=== PATIENT | male | born 1950 | race Caucasian/White ===

== ENCOUNTER 2017-02-10 17:10 | Inpatient (IN) | payer MEDICARE, OTHER ==
[~2017-02-10] VITALS: Ht 167.6 cm; Wt 98.0 kg
[2017-02-10] VITALS (13 sets, daily range): BP systolic 109–171; BP diastolic 56–85; PULSE 75–95; RESP 14–19; O2SAT 94–100
[~2017-02-10 17:10] MED LIST: ACIDCAP17 PO; ATOR40TA PO; BUME1TAB PO; CARV3.125 PO; D32000TA PO; FERR324T4 PO; LANTUS2P SQ; LEVO150T7 PO; LISI2.5T55 PO; MELA3TAB PO; METO2.5 PO; OXYC15TA55 PO; PRED1%O RIGHT EYE; PRIL20CA PO; RIVA20 PO; SERO25TA PO
[2017-02-10] MEDS ORDERED: PROPOFOL 1000 MG/100 ML INJ 100 ML ONE (17:40)
[2017-02-10] MEDS ORDERED: PROPOFOL 1000 MG/100 ML INJ 100 ML IV PRN (17:48)
[2017-02-10] MEDS ORDERED: ETOMIDATE 20 MG/10 ML VIAL IV PUSH ONE (18:00)
[2017-02-10] MEDS ORDERED: SODIUM CHLORIDE 0.9% FLUSH 10 ML FLUSH IVF PRN (18:00)
[2017-02-10] MEDS ORDERED: SUCCINYLCHOLINE CHLORIDE 200 MG/10 ML VIAL IV PUSH ONE (18:00)
[2017-02-10 18:13] LABS: AUTOMATED NEUTROPHIL # 18.6 TH/MM3 (1.8-7.7); BASOPHIL % 0.2 % (0.0-2.0); EOSINOPHIL % 0.2 % (0.0-4.0); HEMATOCRIT 35.3 % (39.0-51.0); HEMO FLAGS DIFF FINAL; LYMPH % 3.6 % (9.0-44.0); LYMPHOCYTE # 0.7 TH/MM3 (1.0-4.8); MEAN CELL VOLUME 77.8 FL (80.0-100.0); MEAN CORPUSCULAR HEMOGLOBIN 24.5 PG (27.0-34.0); MEAN CORPUSCULAR HGB CONC 31.5 % (32.0-36.0); MONO % 2.1 % (0.0-8.0); NEUT % 93.9 % (16.0-70.0); PLATELET COUNT 343 TH/MM3 (150-450); RED BLOOD COUNT 4.54 MIL/MM3 (4.50-5.90); RED CELL DISTRIBUTION WIDTH 18.6 % (11.6-17.2); WHITE BLOOD COUNT 19.9 TH/MM3 (4.0-11.0)
[2017-02-10] MEDS ORDERED: ZOFR4TAB PO (18:15)
[2017-02-10] MEDS ORDERED: VITA3000 PO (18:15)
[2017-02-10] MEDS ORDERED: GLUC40GE PO (18:15)
[2017-02-10] MEDS ORDERED: IPRASOL NEB (18:15)
[2017-02-10] MEDS ORDERED: ALBU0.08 NEB (18:15)
[2017-02-10] MEDS ORDERED: CALC0.25 PO (18:15)
[2017-02-10] MEDS ORDERED: LIPI40TA PO (18:15)
[2017-02-10] MEDS ORDERED: HYDR-3133 PO (18:15)
[2017-02-10] MEDS ORDERED: ACID100C PO (18:15)
[2017-02-10] MEDS ORDERED: MELA0.02 PO (18:15)
[2017-02-10] MEDS ORDERED: NITR1SUB3 SL (18:15)
[2017-02-10] MEDS ORDERED: LEVO137T2 PO (18:15)
[2017-02-10] MEDS ORDERED: MULT1TAB39 PO (18:15)
[2017-02-10] MEDS ORDERED: VITA250T3 PO (18:15)
[2017-02-10] MEDS ORDERED: ALPR.25 PO (18:15)
[2017-02-10] MEDS ORDERED: SERO25TA PO (18:15)
[2017-02-10] MEDS ORDERED: SIME125T PO (18:15)
[2017-02-10] MEDS ORDERED: XARE20TA PO (18:15)
[2017-02-10] MEDS ORDERED: MORP1TAB24 PO (18:15)
[2017-02-10] MEDS ORDERED: CARV3.125 PO (18:15)
[2017-02-10] MEDS ORDERED: HUMU70IN SQ ×2 (18:15)
[2017-02-10] MEDS ORDERED: LISI2.5T3 PO (18:15)
[2017-02-10] MEDS ORDERED: OXYC-395 PO (18:15)
[2017-02-10] MEDS ORDERED: GLUC1KIT IM (18:15)
[2017-02-10] MEDS ORDERED: PRED1SUS RIGHT EYE (18:15)
[2017-02-10] MEDS ORDERED: INSU1INJ13 SQ (18:15)
[2017-02-10] MEDS ORDERED: FERR325T8 PO (18:15)
[2017-02-10] MEDS ORDERED: CARB6.5S5 EACH EAR (18:15)
[2017-02-10 18:16] LABS: BACTERIA, URINE MANY /hpf; BLOOD, URINE MOD (NEG); COMMENT (UR) CULTURE INDICATED; CULTURE IF INDICATED CULTURE INDICATED; GLUCOSE,URINE NEG (NEG); HYALINE CAST, URINE 29 /lpf (RARE); KETONE, URINE NEG (NEG); MUCUS URINE FEW /lpf (OCC); NITRITE,URINE NEG (NEG); PH, URINE 5.5 (5.0-8.5); URINE COLOR DARK-YELLOW (YELLW/STRAW)
[2017-02-10 18:19] LABS: APTT (PATIENT) 27.4 SEC (24.3-30.1); INTERNATIONAL NORMALIZED RATIO 1.2 RATIO; PROTHROMBIN TIME - PATIENT 13.8 SEC (9.8-11.6)
[2017-02-10] MEDS ORDERED: CEFEPIME INJ 2,000 MG in SODIUM CHLORIDE 0.9% INJ 100 ML IV ONE (18:30)
[2017-02-10] MEDS ORDERED: AZITHROMYCIN INJ 500 MG in SODIUM CHLOR 0.9% 250 ML INJ 250 ML IV ONE (18:30)
[2017-02-10 18:49] LABS: ALKALINE PHOSPHATASE 140 U/L (45-117); ALT (GPT) 38 U/L (12-78); ANION GAP 5 MEQ/L (5-15); AST (GOT) 38 U/L (15-37); BLOOD UREA NITROGEN 23 MG/DL (7-18); CHLORIDE 108 MEQ/L (98-107); CREATINE KINASE 184 U/L (39-308); GLOMERULAR FILTRATION RATE 38 ML/MIN (>89); MAGNESIUM 2.2 MG/DL (1.5-2.5); SODIUM (NA) 136 MEQ/L (136-145); TOTAL BILIRUBIN ADULT 0.3 MG/DL (0.2-1.0)
--- NOTE | 2017-02-10 18:51 | PD ---
HPI Chief Complaint: Respiratory Distress Time Seen by Provider: 17:48 Travel History International Travel<30 days: No Contact w/Intl Traveler<30days: No Traveled to known affect area: No History of Present Illness HPI The patient is a 66-year-old male who presents to the emergency department via EMS for shortness of breath. According to EMS the patient was at the shelter earlier today when he became short of breath. According to EMS the patient apparently was administered Xanax at that time for possible anxiety and was reevaluated later. When the patient was reevaluated later was noted that his oxygen saturation was in the 40s. EMS states when they arrived the patient was breathing, agonal, with O2 sat in the 40s. The patient was brought to the emergency department while being bagged, they were unable to obtain IV access. Upon arrival the patient does have spontaneous respirations which are being assisted by bag valve ventilation by EMS. The patient is nonverbal, heart rate in the 90s, and he pierced slightly diaphoretic. No further information is obtainable from the patient. PFSH Past Medical History Medical History: Unable to Obtain Anemia: Yes Arthritis: Yes (FEET AND HANDS) Asthma: No Atrial Fibrillation: Yes Autoimmune Disease: No Blood Disorders: No Anxiety: Yes Depression: Yes Heart Rhythm Problems: Yes (afib) Cancer: No Cardiac Catheterization: Yes Cardiovascular Problems: Yes (CHF) High Cholesterol: Yes Chemotherapy: No Chest Pain: Yes Congestive Heart Failure: Yes COPD: Yes Cerebrovascular Accident: No Dementia: Yes Diabetes: Yes Patient Takes Glucophage: Yes (UNKNOWN) Diminished Hearing: No Diverticulitis: Yes Deep Vein Thrombosis: Yes Endocrine: Yes (DIABETIC) GERD: Yes Glaucoma: No Genitourinary: Yes (CKD, UTI) Headaches: Yes Hepatitis: No Hiatal Hernia: No Hypertension: Yes Immune Disorder: No Implanted Vascular Access Dvce: No Kidney Stones: No Medical other: Yes (PILONIDAL CYST) Musculoskeletal: Yes Neurologic: Yes Psychiatric: Yes (PSYCHOSIS) Reproductive: No Respiratory: Yes (COPD) Integumentary: Yes (PRURITIC DISORDER) Migraines: No Myocardial Infarction: Yes (STEMI ) Pneumonia: Yes Radiation Therapy: No Renal Failure: Yes (CHRONIC KIDNEY DSE ) Seizures: No Sickle Cell Disease: No Sleep Apnea: No Thyroid Disease: Yes (HYPOTHYROIDSIM) Ulcer: No Past Surgical History Surgical History: Unable to Obtain Abdominal Surgery: Yes (FEEDING TUBE PLACED) AICD: No Appendectomy: No Arteriovenous Shunt: No Cardiac Surgery: Yes (CABG 2007 three vessel) Cholecystectomy: No Coronary Artery Bypass Graft: Yes (TRIPLE BYPASS 2007) Coronary Stent: Yes Ear Surgery: No Endocrine Surgery: No Eye Surgery: Yes (REATTACHMENT OF RETINA, CATARACTS NUBIA) Genitourinary Surgery: No Gynecologic Surgery: No Insulin Pump: No Joint Replacement: No Neurologic Surgery: No Oral Surgery: No Pacemaker: No Thoracic Surgery: Yes Other Surgery: Yes (AMPUTION RT. GREAT TOE AND LITTLE TOE,) Social History Alcohol Use: No Tobacco Use: No (QUIT ) Substance Use: No Allergies-Medications (Allergen,Severity, Reaction): Coded Allergies: acetaminophen (Unverified Allergy, Severe, "LIVER PROBLEMS", 01/28/17) diatrizoate meglumine (Unverified Allergy, Severe, Anaphylaxis, 01/28/17) gadobenic acid (Unverified Allergy, Severe, Anaphylaxis, 01/28/17) gadodiamide (Unverified Allergy, Severe, Anaphylaxis, 01/28/17) gadoteridol (Unverified Allergy, Severe, Anaphylaxis, 01/28/17) iodixanol (Unverified Allergy, Severe, Anaphylaxis, 01/28/17) iohexol (Unverified Allergy, Severe, Anaphylaxis, 01/28/17) penicillin G (Unverified Allergy, Severe, "HOT THROAT", 01/28/17) *MDRO Multi-Drug Resistant Organism (Verified Adverse Reaction, Unknown, ) 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 Reported Meds & Prescriptions Reported Meds & Active Scripts Active Reported Zofran (Ondansetron HCl) 4 Mg Tab 4 Mg PO Q6HR PRN Xanax (Alprazolam) 0.25 Mg Tab 0.25 Mg PO Q6H PRN Oxycodone (Oxycodone HCl) 10 Mg Tab 10 Mg PO Q4H PRN Nitroglycerin SL (Nitroglycerin) 0.4 Mg Subl 0.4 Mg SL DIRECTED PRN ONE TABLET UNDER THE TONGUE NEEDED FOR CHEST PAIN, MAY REPEAT EVERY FIVE MINUTES FOR A TOTAL OF 3 DOSES OR CALL 911 IF NO RELIEF Duoneb (Ipratropium-Albuterol Neb) 0.5-2.5 Mg/3 Ml Neb 3 Ml NEB Q6HR PRN Hydroxyzine HCl 25 Mg Tab 25 Mg PO Q6HR PRN Glucose Gel (Dextrose) 40 % Gel 1 Tube PO ONCE PRN Glucagon Emergency Inj Kit (Glucagon (Rdna) Inj Kit) 1 Mg Kit 1 Mg IM ONCE PRN Albuterol Neb (Albuterol Sulfate) 2.5 Mg/3 Ml Neb 2.5 Mg NEB Q2HR PRN Vitamin C (Ascorbic Acid) 250 Mg Tab 250 Mg PO BID Pred Forte Opth 1% (Prednisolone Acetate Opth 1%) 1% Susp 1 Drop RIGHT EYE BID Morphine ER (Morphine Sulfate) 15 Mg Tab 15 Mg PO BID Acidophilus Probiotic (Lactobacillus) 100 Mg (1 Billion Cell) Cap 1 Cap PO BID Humulin 70-30 Inj (Insulin NPH Isophane-Reg (Human) 70-30 Inj) 1,000 Unit/10 Ml Vial 70 Units SQ BID Coreg (Carvedilol) 3.125 Mg Tab 3.125 Mg PO BID Xarelto (Rivaroxaban) 20 Mg Tab 20 Mg PO DAILY Tresiba Flextouch Pen Inj (Insulin Degludec Inj) 600 unit/3 ML Pen 95 Units SQ HS Seroquel (Quetiapine Fumarate) 25 Mg Tab 25 Mg PO HS Multiple Vitamin/Minerals (Multiple Vitamins W/ Minerals) 1 Tab Tab 1 Tab PO DAILY Melatonin 3 Mg Tab 3 Mg PO HS Lisinopril 2.5 Mg Tab 2.5 Mg PO DAILY Levothyroxine (Levothyroxine Sodium) 137 Mcg Tab 137 Mcg PO DAILY Ferrous Sulfate 325 Mg (65 Mg Iron) Tablet 325 Mg PO DAILY Humulin 70-30 Inj (Insulin NPH Isophane-Reg (Human) 70-30 Inj) 1,000 Unit/10 Ml Vial 30 Units SQ IN THE EVENING Before Dinner Gas-X (Simethicone) 125 Mg Tab.chew 125 Mg PO DAILY Debrox Otic Drops (Carbamide Peroxide Otic Drops) 6.5% Soln 5 Drop EACH EAR MONTHLY Vitamin D3 (Cholecalciferol) 3,000 Unit Tab 3,000 Units PO DAILY Calcitriol 0.25 Mcg Cap 0.25 Mcg PO MOWEFR Take 1 capsule (0.25mcg) daily on Friday,Friday and Friday Lipitor (Atorvastatin Calcium) 40 Mg Tab 40 Mg PO HS Review of Systems ROS Limitations: Clinical Condition, Altered Mental Status Except as stated in HPI: all other systems reviewed are Neg Respiratory: Positive: Shortness of Breath Physical Exam Exam Limitations: Clinical Condition, Altered Mental Status Narrative GENERAL: Lethargic 66-year-old male who is being assisted with bag valve ventilation, he does have some spontaneous respirations. SKIN: Slightly diaphoretic. HEAD: Atraumatic. Normocephalic. EYES: Mild drainage from the right eye noted. ENT: No nasal bleeding or discharge. Frothy sputum noted in the posterior oropharynx. NECK: Trachea midline. No JVD. CARDIOVASCULAR: Regular rate and rhythm. No murmur appreciated. Heart rate in the 90s. RESPIRATORY: Ventilation is being assisted via bag valve mask. Crackles noted in the bases bilateral. Diminished breath sounds right base. GASTROINTESTINAL: Abdomen obese, soft, no rigidity noted. MUSCULOSKELETAL: Bilateral lower extremity pitting edema from the knees inferiorly with mild erythematous changes. NEUROLOGICAL: Not following commands. PSYCHIATRIC: Unable to assess. Data Data Last Documented VS Vital Signs Date Time Temp Pulse Resp B/P (MAP) Pulse Ox O2 Delivery O2 Flow Rate FiO2 02/10/17 18:29 87 19 131/61 (84) 100 Ventilator 02/10/17 17:55 100 Orders Orders Propofol 1000 Mg/100 Ml Inj (Diprivan 10 (02/10/17 17:40) Complete Blood Count With Diff (02/10/17 17:48) Comprehensive Metabolic Panel (02/10/17 17:48) B-Type Natriuretic Peptide (02/10/17 17:48) Act Partial Throm Time (Ptt) (02/10/17 17:48) Prothrombin Time / Inr (Pt) (02/10/17 17:48) Magnesium (Mg) (02/10/17 17:48) Ckmb (Isoenzyme) Profile (02/10/17 17:48) Troponin I (02/10/17 17:48) Urinalysis - C+S If Indicated (02/10/17 17:48) Iv Access Insert/Monitor (02/10/17 17:48) Electrocardiogram (02/10/17 17:48) Ecg Monitoring (02/10/17 17:48) Oximetry (02/10/17 17:48) Oxygen Administration (02/10/17 17:48) Chest, Single Ap (02/10/17 17:48) Sodium Chloride 0.9% Flush (Ns Flush) (02/10/17 18:00) Propofol 1000 Mg/100 Ml Inj (Diprivan 10 (02/10/17 17:48) ^ Infusion (02/10/17 17:48) RASS (02/10/17 17:48) Neurological Rass Scale THERON.Q2H (02/10/17 17:48) Etomidate Inj (Amidate Inj) (02/10/17 18:00) Succinylcholine Inj (Quelicin Inj) (02/10/17 18:00) Urine Culture (02/10/17 17:54) Blood Culture (02/10/17 18:22) Lactic Acid (02/10/17 18:22) Arterial Blood Gas (Abg) (02/10/17 ) Ct Brain W/O Iv Contrast(Rout) (02/10/17 ) Admit Order (Ed Use Only) (02/10/17 18:53) CKMB (02/10/17 17:50) CKMB% (02/10/17 17:50) Labs Laboratory Tests Test 02/10/17 17:50 02/10/17 17:54 02/10/17 18:25 White Blood Count 19.9 TH/MM3 Red Blood Count 4.54 MIL/MM3 Hemoglobin 11.1 GM/DL Hematocrit 35.3 % Mean Corpuscular Volume 77.8 FL Mean Corpuscular Hemoglobin 24.5 PG Mean Corpuscular Hemoglobin Concent 31.5 % Red Cell Distribution Width 18.6 % Platelet Count 343 TH/MM3 Mean Platelet Volume 8.4 FL Neutrophils (%) (Auto) 93.9 % Lymphocytes (%) (Auto) 3.6 % Monocytes (%) (Auto) 2.1 % Eosinophils (%) (Auto) 0.2 % Basophils (%) (Auto) 0.2 % Neutrophils # (Auto) 18.6 TH/MM3 Lymphocytes # (Auto) 0.7 TH/MM3 Monocytes # (Auto) 0.4 TH/MM3 Eosinophils # (Auto) 0.0 TH/MM3 Basophils # (Auto) 0.0 TH/MM3 CBC Comment DIFF FINAL Differential Comment Prothrombin Time 13.8 SEC Prothromb Time International Ratio 1.2 RATIO Activated Partial Thromboplast Time 27.4 SEC Blood Urea Nitrogen 23 MG/DL Creatinine 1.78 MG/DL Random Glucose 249 MG/DL Total Protein 7.8 GM/DL Albumin 2.8 GM/DL Calcium Level 7.6 MG/DL Magnesium Level 2.2 MG/DL Alkaline Phosphatase 140 U/L Aspartate Amino Transf (AST/SGOT) 38 U/L Alanine Aminotransferase (ALT/SGPT) 38 U/L Total Bilirubin 0.3 MG/DL Sodium Level 136 MEQ/L Potassium Level 7.1 MEQ/L Chloride Level 108 MEQ/L Carbon Dioxide Level 23.0 MEQ/L Anion Gap 5 MEQ/L Estimat Glomerular Filtration Rate 38 ML/MIN Total Creatine Kinase 184 U/L Creatine Kinase MB 3.4 NG/ML Troponin I 0.09 NG/ML B-Type Natriuretic Peptide 500 PG/ML Urine Color DARK-YELLOW Urine Turbidity CLOUDY Urine pH 5.5 Urine Specific [place] 1.018 Urine Protein 100 mg/dL Urine Glucose (UA) NEG mg/dL Urine Ketones NEG mg/dL Urine Occult Blood MOD Urine Nitrite NEG Urine Bilirubin NEG Urine Urobilinogen 2.0 MG/DL Urine Leukocyte Esterase NEG Urine RBC 50 /hpf Urine WBC 6 /hpf Urine Amorphous Sediment RARE Urine Bacteria MANY /hpf Urine Hyaline Casts 29 /lpf Urine Mucus FEW /lpf Microscopic Urinalysis Comment CULTURE INDICATED Lactic Acid Level 1.0 mmol/L MDM Medical Decision Making Medical Screen Exam Complete: Yes Emergency Medical Condition: Yes Medical Record Reviewed: Yes Interpretation(s) EKG reveals normal sinus rhythm with a rate 81. Low QRS voltage in precordial leads. Inverted T waves noted in lead V5 and V6. Last Impressions Chest X-Ray 02/10/17 1748 Signed Impressions: Service Date/Time: Friday, February 10, 2017 18:08 - CONCLUSION: 1. Suspected bilateral pleural effusions being worse on the right with some degree of accompanying atelectasis or consolidation at the lung bases. 2. Enlargement of the cardiac silhouette. The patient is status post sternotomy. 3. Tubes and lines are in good position. Ap Quigley MD Head CT 02/10/17 0000 Signed Impressions: Service Date/Time: Saturday, February 11, 2017 03:29 - CONCLUSION: Stable noncontrast head CT. No acute intracranial abnormality is identified. Ap Carrington MD Laboratory Tests Test 02/10/17 17:50 02/10/17 17:54 02/10/17 18:25 White Blood Count 19.9 TH/MM3 Red Blood Count 4.54 MIL/MM3 Hemoglobin 11.1 GM/DL Hematocrit 35.3 % Mean Corpuscular Volume 77.8 FL Mean Corpuscular Hemoglobin 24.5 PG Mean Corpuscular Hemoglobin Concent 31.5 % Red Cell Distribution Width 18.6 % Platelet Count 343 TH/MM3 Mean Platelet Volume 8.4 FL Neutrophils (%) (Auto) 93.9 % Lymphocytes (%) (Auto) 3.6 % Monocytes (%) (Auto) 2.1 % Eosinophils (%) (Auto) 0.2 % Basophils (%) (Auto) 0.2 % Neutrophils # (Auto) 18.6 TH/MM3 Lymphocytes # (Auto) 0.7 TH/MM3 Monocytes # (Auto) 0.4 TH/MM3 Eosinophils # (Auto) 0.0 TH/MM3 Basophils # (Auto) 0.0 TH/MM3 CBC Comment DIFF FINAL Differential Comment Prothrombin Time 13.8 SEC Prothromb Time International Ratio 1.2 RATIO Activated Partial Thromboplast Time 27.4 SEC Blood Urea Nitrogen 23 MG/DL Creatinine 1.78 MG/DL Random Glucose 249 MG/DL Total Protein 7.8 GM/DL Albumin 2.8 GM/DL Calcium Level 7.6 MG/DL Magnesium Level 2.2 MG/DL Alkaline Phosphatase 140 U/L Aspartate Amino Transf (AST/SGOT) 38 U/L Alanine Aminotransferase (ALT/SGPT) 38 U/L Total Bilirubin 0.3 MG/DL Sodium Level 136 MEQ/L Potassium Level 7.1 MEQ/L Chloride Level 108 MEQ/L Carbon Dioxide Level 23.0 MEQ/L Anion Gap 5 MEQ/L Estimat Glomerular Filtration Rate 38 ML/MIN Total Creatine Kinase 184 U/L Creatine Kinase MB 3.4 NG/ML Troponin I 0.09 NG/ML B-Type Natriuretic Peptide 500 PG/ML Urine Color DARK-YELLOW Urine Turbidity CLOUDY Urine pH 5.5 Urine Specific [place] 1.018 Urine Protein 100 mg/dL Urine Glucose (UA) NEG mg/dL Urine Ketones NEG mg/dL Urine Occult Blood MOD Urine Nitrite NEG Urine Bilirubin NEG Urine Urobilinogen 2.0 MG/DL Urine Leukocyte Esterase NEG Urine RBC 50 /hpf Urine WBC 6 /hpf Urine Amorphous Sediment RARE Urine Bacteria MANY /hpf Urine Hyaline Casts 29 /lpf Urine Mucus FEW /lpf Microscopic Urinalysis Comment CULTURE INDICATED Lactic Acid Level 1.0 mmol/L Differential Diagnosis Differential diagnosis includes congestive heart failure, pneumonia, pulmonary embolism, pulmonary edema, pleural effusion, acute coronary syndrome, sepsis. Narrative Course The patient was brought in by EMS, they were unable to obtain IV access. Therefore, an IO was placed in the left lower extremity in the tibia. The patient was placed on cardiac telemetry monitoring and continuous pulse oximetry monitoring. The patient was being assisted via ventilations and bag- valve-mask, therefore, was intubated using rapid sequence intubation with etomidate and succinylcholine. After the patient was intubated a central line was placed in right internal jugular vein. There is good blood return and the IV flowed easily. Stat chest x-ray was obtained, endotracheal tube, central line, and nasogastric tube appeared in place. X-ray appears to have an effusion and/or pneumonia on the right side, therefore, the patient was placed on cefepime and Zithromax. The patient did receive Lasix 40 mg intravenously at the shelter prior to arrival. The patient's lower extremities were unwrapped and visualized, he does have pitting edema with chronic venous stasis changes but no obvious cellulitis. Blood culture and lactic gas were sent to lab prior to cefepime and Zithromax coverage for healthcare acquired pneumonia. The on-call refinery operator reforming unit, Dr. Linda, was paged for admission. ABG was obtained after intubation and CT the brain was ordered to rule out intracranial hemorrhage. Lab called and stated the patient's potassium was elevated at 7.1, therefore, the patient was administered calcium chloride, insulin, D50, bicarbonate, albuterol, and Kayexalate. Critical Care Narrative Aggregate critical care time was 45 minutes. Time to perform other separately billable procedures was not included in the critical care time. My time did not include minutes spent treating any other patients simultaneously or on activities that did not directly contribute to the patient's treatment. The services I provided to this patient were to treat and/or prevent clinically significant deterioration that could result in: Anoxia, hypoxia, aspiration, arrhythmia, . I provided critical care services requiring my management, as noted below: Chart data review, documentation time, medication orders and management, vital sign assessments/reviewing monitor data, ordering and reviewing lab tests, ordering and interpreting/reviewing x-rays and diagnostic studies, care of the patient and discussion of the patient with the admitting physicians. Procedures Procedure Narrative INTUBATION: The patient was put in optimal position for the procedure. Rapid sequence intubation was initiated by me using 20 milligrams of etomidate IV and 100 milligrams of succinylcholine IV. The patient was intubated with a 8-0 cuffed endotracheal tube. Tube placement was confirmed by visualization of the tube and balloon passing through the cords, capnometry and subsequent chest x- ray. Breath sounds were equal and well aerated bilaterally postintubation. No breath sounds over stomach. Patient tolerated procedure well. CENTRAL VENOUS LINE: The site was prepped with Betadine and sterilely draped. It was infiltrated with 1% lidocaine plain. The deep vein was cannulated using normal Seldinger technique. A central line was placed in the right internal jugular site and secured with simple interrupted suture. The site was sterilely dressed. The patient tolerated the procedure well. Sepsis Criteria SIRS Criteria (2 or more): WBC > 09719, < 4000 or > 10% bands Physician Communication Physician Communication The on-call refinery operator reforming unit was paged for admission. I discussed the patient with Dr. Linda who agrees with admission. Diagnosis Primary Impression: Respiratory failure Qualified Codes: J96.01 - Acute respiratory failure with hypoxia Additional Impressions: Pneumonia Qualified Codes: J18.1 - Lobar pneumonia, unspecified organism Hyperkalemia Admitting Information Admitting Physician Requests: Admit Condition: Critical Christian Kemp MD Feb 10, 2017 18:50
[2017-02-10 18:58] LABS: POTASSIUM 7.1 MEQ/L (3.5-5.1)
[2017-02-10] MEDS ORDERED: SODIUM POLYSTYRENE SULFONATE SUSP 15 GM/60 ML CUP PO ONE (19:00)
[2017-02-10] MEDS ORDERED: CALCIUM GLUCONATE 10% 1 GM/10 ML VIAL SLOW IVP ONE (19:00)
[2017-02-10] MEDS ORDERED: DEXTROSE 50% IN WATER 50 ML VIAL(D50) IV PUSH ONE (19:00)
[2017-02-10] MEDS ORDERED: RESP: ALBUTEROL CONC 2.5 MG/0.5 ML NEB INH ONE (19:00)
[2017-02-10] MEDS ORDERED: SODIUM BICARBONATE 8.4% SOLN 50 MEQ/50 ML VIAL SLOW IVP ONE (19:00)
--- NOTE | 2017-02-10 19:08 | HHI.HP ---
[facility] Service Critical Care Medicine Primary Care Physician Alexis Aggarwal MD Admission Diagnosis respiratory failure, pneumonia, effusion, leukocytosis Diagnosis: Travel History International Travel<30 Days: No Contact w/Intl Traveler <30 Da: No Traveled to Known Affected Are: No History of Present Illness 66-year-old brought to the emergency department via EMS for shortness of breath. According to EMS the patient was at the halfway earlier today when he became short of breath. According to chart the patient apparently was administered Xanax at that time for possible anxiety and was reevaluated later. When the patient was reevaluated later was noted that his oxygen saturation was in the 40s. EMS states when they arrived the patient was breathing, agonal , with O2 sat in the 40s. The patient was brought to the emergency department while being bagged, they were unable to obtain IV access. He was immediately intubated by ED attending that also placed IO for an access and later IJ. Review of Systems ROS Unobtainable patient is sedated and intubated Past Family Social History Allergies: Coded Allergies: acetaminophen (Unverified Allergy, Severe, "LIVER PROBLEMS", 01/28/17) diatrizoate meglumine (Unverified Allergy, Severe, Anaphylaxis, 01/28/17) gadobenic acid (Unverified Allergy, Severe, Anaphylaxis, 01/28/17) gadodiamide (Unverified Allergy, Severe, Anaphylaxis, 01/28/17) gadoteridol (Unverified Allergy, Severe, Anaphylaxis, 01/28/17) iodixanol (Unverified Allergy, Severe, Anaphylaxis, 01/28/17) iohexol (Unverified Allergy, Severe, Anaphylaxis, 01/28/17) penicillin G (Unverified Allergy, Severe, "HOT THROAT", 01/28/17) *MDRO Multi-Drug Resistant Organism (Verified Adverse Reaction, Unknown, ) MRSA (leg wound) - 04/2012 / (toe wound) - 02/28/15 / (foot wound) - 05/06/15 Uncoded Allergies: RADIOISOTOPES (Allergy, Severe, 09/27/13) UNKONWN RXN, LISTED ON PATIENT PAPERWORK FROM [facility]. Past Medical History CAD CHF, EF 30-35% 03/02/15 Paroxysmal atrial fibrillation Hypertension CKD stage III Diabetes mellitus, type II COPD Hypothyroidism Mood disorder GERD History of DVT, on Xarelto Past Surgical History CABG 3 in 2007 Crit catheterization with stent placement Cataract surgery bilaterally no sun retinal reattachment, right eye Great toe amputation Fifth toe amputation Reported Medications Reported Meds & Active Scripts Active Reported Zofran (Ondansetron HCl) 4 Mg Tab 4 Mg PO Q6HR PRN Xanax (Alprazolam) 0.25 Mg Tab 0.25 Mg PO Q6H PRN Oxycodone (Oxycodone HCl) 10 Mg Tab 10 Mg PO Q4H PRN Nitroglycerin SL (Nitroglycerin) 0.4 Mg Subl 0.4 Mg SL DIRECTED PRN ONE TABLET UNDER THE TONGUE NEEDED FOR CHEST PAIN, MAY REPEAT EVERY FIVE MINUTES FOR A TOTAL OF 3 DOSES OR CALL 911 IF NO RELIEF Duoneb (Ipratropium-Albuterol Neb) 0.5-2.5 Mg/3 Ml Neb 3 Ml NEB Q6HR PRN Hydroxyzine HCl 25 Mg Tab 25 Mg PO Q6HR PRN Glucose Gel (Dextrose) 40 % Gel 1 Tube PO ONCE PRN Glucagon Emergency Inj Kit (Glucagon (Rdna) Inj Kit) 1 Mg Kit 1 Mg IM ONCE PRN Albuterol Neb (Albuterol Sulfate) 2.5 Mg/3 Ml Neb 2.5 Mg NEB Q2HR PRN Vitamin C (Ascorbic Acid) 250 Mg Tab 250 Mg PO BID Pred Forte Opth 1% (Prednisolone Acetate Opth 1%) 1% Susp 1 Drop RIGHT EYE BID Morphine ER (Morphine Sulfate) 15 Mg Tab 15 Mg PO BID Acidophilus Probiotic (Lactobacillus) 100 Mg (1 Billion Cell) Cap 1 Cap PO BID Humulin 70-30 Inj (Insulin NPH Isophane-Reg (Human) 70-30 Inj) 1,000 Unit/10 Ml Vial 70 Units SQ BID Coreg (Carvedilol) 3.125 Mg Tab 3.125 Mg PO BID Xarelto (Rivaroxaban) 20 Mg Tab 20 Mg PO DAILY Tresiba Flextouch Pen Inj (Insulin Degludec Inj) 600 unit/3 ML Pen 95 Units SQ HS Seroquel (Quetiapine Fumarate) 25 Mg Tab 25 Mg PO HS Multiple Vitamin/Minerals (Multiple Vitamins W/ Minerals) 1 Tab Tab 1 Tab PO DAILY Melatonin 3 Mg Tab 3 Mg PO HS Lisinopril 2.5 Mg Tab 2.5 Mg PO DAILY Levothyroxine (Levothyroxine Sodium) 137 Mcg Tab 137 Mcg PO DAILY Ferrous Sulfate 325 Mg (65 Mg Iron) Tablet 325 Mg PO DAILY Humulin 70-30 Inj (Insulin NPH Isophane-Reg (Human) 70-30 Inj) 1,000 Unit/10 Ml Vial 30 Units SQ IN THE EVENING Before Dinner Gas-X (Simethicone) 125 Mg Tab.chew 125 Mg PO DAILY Debrox Otic Drops (Carbamide Peroxide Otic Drops) 6.5% Soln 5 Drop EACH EAR MONTHLY Vitamin D3 (Cholecalciferol) 3,000 Unit Tab 3,000 Units PO DAILY Calcitriol 0.25 Mcg Cap 0.25 Mcg PO MOWEFR Take 1 capsule (0.25mcg) daily on Friday,Friday and Friday Lipitor (Atorvastatin Calcium) 40 Mg Tab 40 Mg PO HS Active Ordered Medications Current Medications Medications (Trade) Dose Ordered Sig/Gucci Route PRN Reason Start Time Stop Time Status Last Admin Dose Admin Alprazolam (Xanax) 0.25 mg Q6H PRN PO ANXIETY 02/10/17 19:15 Atorvastatin Calcium (Lipitor) 40 mg HS PO 02/10/17 21:00 02/10/17 22:28 Calcitriol (Rocaltrol) 0.25 mcg MoWeFr@0800 PO 02/10/17 22:00 Carbamide Peroxide (Debrox 6.5% Otic) 5 drop DAILY@0600 EACH EAR 02/11/17 06:00 Carvedilol (Coreg) 3.125 mg BID PO 02/10/17 21:00 02/10/17 22:28 Cholecalciferol (Vitamin D3) 3,000 units DAILY PO 02/11/17 09:00 Ferrous Sulfate (Ferrous Sulfate) 325 mg DAILY PO 02/11/17 09:00 Hydroxyzine HCl (Atarax) 25 mg Q6H PRN PO ITCHING 02/10/17 19:15 Morphine Sulfate (Oramorph Sr) 15 mg BID PO 02/10/17 21:00 Oxycodone HCl (Roxicodone) 10 mg Q4H PRN PO PAIN 1-5 02/10/17 19:15 Prednisolone Acetate (Pred Forte 1% Opth Susp) 1 drop BID RIGHT EYE 02/10/17 21:00 Quetiapine Fumarate (SEROquel) 25 mg HS PO 02/10/17 21:00 02/10/17 22:28 Rivaroxaban (Xarelto) 20 mg DAILY PO 02/11/17 09:00 Simethicone (Phazyme Chew) 125 mg DAILY PO 02/11/17 09:00 Ascorbic Acid (Vitamin C) 250 mg BID PO 02/11/17 09:00 Lactobacillus Acidophilus (Lactinex) 1 tab BID PO 02/10/17 21:45 Levothyroxine Sodium (Synthroid) 112 mcg DAILY@0600 PO 02/11/17 06:00 Melatonin (Melatonin) 5 mg HS PO 02/10/17 21:45 Multivitamins/ Minerals Therapeutic (Theragran M Tab) 1 tab DAILY PO 02/11/17 09:00 Sodium Chloride 1,000 ml @ 124 mls/hr Q8H4M IV 02/10/17 22:00 02/11/17 00:17 Sodium Chloride (NS Flush) 2 ml UNSCH PRN .XX FLUSH AFTER USING IV ACCESS 02/10/17 19:15 Sodium Chloride (NS Flush) 2 ml BID .XX 02/10/17 21:00 Morphine Sulfate (Morphine Inj) 2 mg Q2H PRN IV PAIN SCALE 6 TO 10 02/10/17 19:15 Famotidine (Pepcid Inj) 20 mg Q12HR IV PUSH 02/10/17 21:00 02/10/17 22:24 Midazolam HCl (Versed Inj) 2 mg Q1H PRN IV SEDATION 02/10/17 19:15 Artificial Tears (Tears Naturale Opth Soln) 1 drop TID EACH EYE 02/11/17 09:00 Ondansetron HCl (Zofran Inj) 4 mg Q6H PRN IV NAUSEA OR VOMITING 02/10/17 19:15 Albuterol/ Ipratropium (Duoneb Neb) 1 ampule Q6HR NEB INH 02/10/17 22:00 Albuterol/ Ipratropium (Duoneb Neb) 1 ampule Q2HR NEB PRN INH WHEEZING 02/10/17 19:15 Miscellaneous Information 1 Q361D XX 02/10/17 19:15 Chlorhexidine Gluconate (Chlorhexidine 2% Cloth) 3 pack Taper DAILY@04 TOP 02/11/17 04:00 02/07/18 03:59 Chlorhexidine Gluconate (Chlorhexidine 2% Cloth) 3 pack UNSCH PRN TOP HYGIENIC CARE 02/10/17 19:15 Senna/Docusate Sodium (Kimberly-Colace) 1 tab BID PO 02/10/17 21:00 02/10/17 22:28 Magnesium Hydroxide (Milk Of Magnesia Liq) 30 ml Q12H PRN PO MILD - MODERATE CONSTIPATION 02/10/17 19:15 Sennosides (Senokot) 17.2 mg Q12H PRN PO MODERATE - SEVERE CONSTIPATION 02/10/17 19:15 Bisacodyl (Dulcolax Supp) 10 mg DAILY PRN RECTAL SEVERE CONSITIPATION 02/10/17 19:15 Lactulose (Lactulose Liq) 30 ml DAILY PRN PO SEVERE CONSITIPATION 02/10/17 19:15 Cefepime HCl 2000 mg/Sodium Chloride 100 ml @ 200 mls/hr Q8H IV 02/10/17 22:00 02/10/17 22:28 Azithromycin 500 mg/Sodium Chloride 250 ml @ 250 mls/hr Q24H IV 02/10/17 22:00 02/10/17 23:11 Propofol 100 ml @ 3.75 mls/hr Q24H PRN IV SEDATION 02/10/17 19:20 02/11/17 01:30 Miscellaneous (Pill Splitter) 1 ea UNSCH PRN OTHER SEE LABEL COMMENTS 02/10/17 21:45 Levothyroxine Sodium (Synthroid) 25 mcg DAILY@0600 PO 02/11/17 06:00 Dextrose (D50w (Vial) Inj) 50 ml UNSCH PRN IV HYPOGLYCEMIA-SEE COMMENTS 02/11/17 01:45 Glucagon (Glucagon Inj) 1 mg UNSCH PRN OTHER HYPOGLYCEMIA-SEE COMMENTS 02/11/17 01:45 UNV Insulin Aspart (NovoLOG SUPPLEMENTAL SCALE) 1 ACHS SLIDING SCALE SQ 02/11/17 07:00 UNV Family History No family history of early coronary artery disease or malignancy Social History Quit smoking 40 years ago Denies alcohol or illicit drug abuse SNF resident Physical Exam Vital Signs Vital Signs Date Time Temp Pulse Resp B/P (MAP) Pulse Ox O2 Delivery O2 Flow Rate FiO2 02/10/17 18:29 87 19 131/61 (84) 100 Ventilator 02/10/17 17:59 100 Ventilator 02/10/17 17:59 100 Ventilator 02/10/17 17:55 98 100 02/10/17 17:40 95 14 164/70 (101) 97 Ventilator 100 02/10/17 17:22 100 02/10/17 17:20 18 94 02/10/17 17:15 90 18 94 Physical Exam GENERAL: Morbidly obese sedated and intubated SKIN: Warm and dry. HEAD: Normocephalic. EYES: No scleral icterus. No injection or drainage. NECK: Supple, trachea midline. No JVD or lymphadenopathy. CARDIOVASCULAR: Regular rate and rhythm without murmurs, gallops, or rubs. RESPIRATORY: Breath sounds equal bilaterally. No accessory muscle use. GASTROINTESTINAL: Abdomen soft, non-tender, nondistended. MUSCULOSKELETAL: No cyanosis, chronic pitting edema up to her knees BACK: Nontender without obvious deformity. NEURO EXAM: GCS: M4 Vt E2 Mental Status: The patient is sedated and intubated Cranial Nerves: Pupils are round, reactive to light. Reflexes: Biceps, patellar, and Achilles are 2/4 bilaterally. No clonus. Laboratory Laboratory Tests Test 02/10/17 17:50 02/10/17 17:54 02/10/17 18:25 White Blood Count 19.9 Red Blood Count 4.54 Hemoglobin 11.1 Hematocrit 35.3 Mean Corpuscular Volume 77.8 Mean Corpuscular Hemoglobin 24.5 Mean Corpuscular Hemoglobin Concent 31.5 Red Cell Distribution Width 18.6 Platelet Count 343 Mean Platelet Volume 8.4 Neutrophils (%) (Auto) 93.9 Lymphocytes (%) (Auto) 3.6 Monocytes (%) (Auto) 2.1 Eosinophils (%) (Auto) 0.2 Basophils (%) (Auto) 0.2 Neutrophils # (Auto) 18.6 Lymphocytes # (Auto) 0.7 Monocytes # (Auto) 0.4 Eosinophils # (Auto) 0.0 Basophils # (Auto) 0.0 CBC Comment DIFF FINAL Differential Comment Prothrombin Time 13.8 Prothromb Time International Ratio 1.2 Activated Partial Thromboplast Time 27.4 Blood Urea Nitrogen 23 Creatinine 1.78 Random Glucose 249 Total Protein 7.8 Albumin 2.8 Calcium Level 7.6 Magnesium Level 2.2 Alkaline Phosphatase 140 Aspartate Amino Transf (AST/SGOT) 38 Alanine Aminotransferase (ALT/SGPT) 38 Total Bilirubin 0.3 Sodium Level 136 Potassium Level 7.1 Chloride Level 108 Carbon Dioxide Level 23.0 Anion Gap 5 Estimat Glomerular Filtration Rate 38 Total Creatine Kinase 184 Troponin I 0.09 B-Type Natriuretic Peptide 500 Urine Color DARK-YELLOW Urine Turbidity CLOUDY Urine pH 5.5 Urine Specific Shaniko 1.018 Urine Protein 100 Urine Glucose (UA) NEG Urine Ketones NEG Urine Occult Blood MOD Urine Nitrite NEG Urine Bilirubin NEG Urine Urobilinogen 2.0 Urine Leukocyte Esterase NEG Urine RBC 50 Urine WBC 6 Urine Amorphous Sediment RARE Urine Bacteria MANY Urine Hyaline Casts 29 Urine Mucus FEW Microscopic Urinalysis Comment CULTURE INDICATED Date/Time Source Procedure Growth Status 02/10/17 18:35 Blood Peripheral Aerobic Blood Culture Pending Received 02/10/17 18:35 Blood Peripheral Anaerobic Blood Culture Pending Received 02/10/17 17:54 Urine Random Urine Urine Culture Pending Worksheet Result Diagram: 02/10/17 1750 02/10/17 1750 Imaging Last 24 hours Impressions Chest X-Ray 02/10/17 1748 Signed Impressions: Service Date/Time: Friday, February 10, 2017 18:08 - CONCLUSION: 1. Suspected bilateral pleural effusions being worse on the right with some degree of accompanying atelectasis or consolidation at the lung bases. 2. Enlargement of the cardiac silhouette. The patient is status post sternotomy. 3. Tubes and lines are in good position. MD Bhargav Bruner VTE Risk Assessment Capvito VTE Risk Assessment: Mod/High Risk (score >= 2) Caprini Risk Assessment Model Point Value = 1 Point Value = 2 Point Value = 3 Point Value = 5 Age 41-60 Minor surgery BMI > 25 kg/m2 Swollen legs Varicose veins or History of unexplained or recurrent spontaneous Oral contraceptives or hormone replacement Sepsis (< 1 month) Serious lung disease, including pneumonia (< 1 month) Abnormal pulmonary function Acute myocardial infarction Congestive heart failure (< 1 month) History of inflammatory bowel disease Medical patient at bed rest Age 61-74 Arthroscopic surgery Major open surgery (> 45 min) Laparoscopic surgery (> 45 min) Malignancy Confined to bed (> 72 hours) Immobilizing plaster cast Central venous access Age >= 75 History of VTE Family history of VTE Factor V Leiden Prothrombin [id number] Lupus anticoagulant Anticardiolipin antibodies Elevated serum homocysteine Heparin-induced thrombocytopenia Other congenital or acquired thrombophilia Stroke (< 1 month) Elective arthroplasty Hip, pelvis, or leg fracture Acute spinal cord injury (< 1 month) Prophylaxis Regimen Total Risk Factor Score Risk Level Prophylaxis Regimen 0-1 Low Early ambulation 2 Moderate Order ONE of the following: *Sequential Compression Device (SCD) *Heparin 5000 units SQ BID 3-4 Higher Order ONE of the following medications: *Heparin 5000 units SQ TID *Enoxaparin/Lovenox 40 mg SQ daily (WT < 150 kg, CrCl > 30 mL/min) *Enoxaparin/Lovenox 30 mg SQ daily (WT < 150 kg, CrCl > 10-29 mL/min) *Enoxaparin/Lovenox 30 mg SQ BID (WT < 150 kg, CrCl > 30 mL/min) AND/OR *Sequential Compression Device (SCD) 5 or more Highest Order ONE of the following medications: *Heparin 5000 units SQ TID (Preferred with Epidurals) *Enoxaparin/Lovenox 40 mg SQ daily (WT < 150 kg, CrCl > 30 mL/min) *Enoxaparin/Lovenox 30 mg SQ daily (WT < 150 kg, CrCl > 10-29 mL/min) *Enoxaparin/Lovenox 30 mg SQ BID (WT < 150 kg, CrCl > 30 mL/min) AND *Sequential Compression Device (SCD) Assessment and Plan Assessment and Plan Respiratory failure - Suspected underlying pneumonia - Broad-spectrum antibiotic - Urine antigens - Panculture - Follow-up cultures and de-escalate per sensitivity - Mechanical ventilation - CXR and ABG daily - Vent bundle CAD - No acute coronary syndrome - Troponin series to follow - Beta kristopher Paroxysmal atrial fibrillation - Coreg for rate control - Xarelto Hypertension - Carvediol CKD stage III - With hyperkalemia without EKG change - Treated emergently with insulin bicarbonate glucose and calcium - Continue IV hydration - Strict I's and O's - Monitor trend Diabetes mellitus, type II - Insulin-dependent - Insulin sliding scale - Long-acting insulin on hold until tube feeds at the goal COPD - Exacerbation - DuoNeb scheduled and when necessary - Steroid Hypothyroidism - Levothyroxine Mood disorder - Quetiapine GERD - Pepcid History of DVT - Xarelto DVT GI prophylaxis - Teds SCDs - Xarelto - Pepcid Critical Care: The total critical care time was 35 minutes. Time to perform other separately billable procedures was not included in the critical care time. William Linda MD Feb 10, 2017 7:08 pm
[2017-02-10 19:15] LABS: CKMB 3.4 NG/ML (0.5-3.6)
[2017-02-10] MEDS ORDERED: MIDAZOLAM HCL 2 MG/2 ML VIAL IV PRN (19:15)
[2017-02-10] MEDS ORDERED: RESP: ALBUTEROL 2.5 MG/IPRATROPIUM 0.5 MG NEB (PRN) INH (19:15)
[2017-02-10] MEDS ORDERED: SODIUM CHLORIDE 0.9% FLUSH 10 ML FLUSH PRN (19:15)
[2017-02-10] MEDS ORDERED: ACETAMINOPHEN 325 MG TAB PO PRN (19:15)
[2017-02-10] MEDS ORDERED: LACTULOSE SYRUP 20 GM/30 ML CUP PO PRN (19:15)
[2017-02-10] MEDS ORDERED: ALPRAZolam 0.25 MG TAB PO PRN (19:15)
[2017-02-10] MEDS ORDERED: SENNOSIDES 8.6 MG TAB PO PRN (19:15)
[2017-02-10] MEDS ORDERED: HEPARIN SODIUM - SQ 10,000 UNITS/ML VIAL SQ SCH (19:15)
[2017-02-10] MEDS ORDERED: ONDANSETRON HCL 4 MG/2 ML VIAL IV PRN (19:15)
[2017-02-10] MEDS ORDERED: MISCELLANEOUS NURSING INFORMATION XX SCH (19:15)
[2017-02-10] MEDS ORDERED: INSULIN HUMAN REGULAR 1,000 UNITS/10 ML VIAL IV PUSH ONE (19:15)
[2017-02-10] MEDS ORDERED: hydrOXYzine HCL 25 MG TAB PO PRN (19:15)
[2017-02-10] MEDS ORDERED: BISACODYL 10 MG SUPP RECTAL PRN (19:15)
[2017-02-10] MEDS ORDERED: CHLORHEXIDINE GLUCONATE 2 % 1 PACK (2 CLOTHS) TOP PRN (19:15)
--- NOTE | 2017-02-10 19:45 | RADRPT ---
EXAM DATE/TIME: 02/10/2017 18:08 [facility] COMPARISON: CHEST SINGLE AP, September 07, 2015, 6:21. INDICATIONS : Ventilator-dependant respiratory distress. MEDICAL HISTORY : Cardiovascular disease. SURGICAL HISTORY : CABG. Coronary artery stent. ENCOUNTER: Initial ACUITY: 1 day PAIN SCORE: Non-responsive. LOCATION: Bilateral chest FINDINGS: The patient is status post sternotomy. The cardiac silhouette is enlarged. The patient is intubated with the tip of the ET tube 5 cm from the iman. An NG tube is place with the tip dire cted into the stomach. There is hazy density seen over the lungs bilaterally being worse on the right consistent with some degree of effusion. There is a right internal jugular central line in place wi th the tip overlying the SVC. There is also increased density at the bases bilaterally likely repres enting some superimposed atelectasis or consolidation. CONCLUSION: 1. Suspected bilateral pleural effusions being worse on the right with some degree of accompanying at electasis or consolidation at the lung bases. 2. Enlargement of the cardiac silhouette. The patient is status post sternotomy. 3. Tubes and lines are in good position. Ap Quigley MD on February 10, 2017 at 19:06 Board Certified Radiologist. This report was verified electronically.
[2017-02-10] MEDS: SODIUM CHLORIDE 0.9% FLUSH 10 ML FLUSH SCH (21:00)
[2017-02-10] MEDS: prednisoLONE ACETATE 1% OPHT SUSP 5 ML BTL RIGHT EYE SCH (21:00)
[2017-02-10] MEDS: MORPHINE SULFATE 15 MG CONTROLLED RELEASE TAB PO SCH (21:00)
[2017-02-10 21:25] LABS: BLOOD GAS BASE EXCESS -4.3 mmol/L (-2-2); BLOOD GAS CARBOXYHEMOGLOBIN 1.2 % (0-4); BLOOD GAS HCO3 22 mmol/L (22-26); BLOOD GAS METHEMOGLOBIN 0.3 % (0-2); BLOOD GAS O2 HGB SATURATION 98 % (90-100); BLOOD GAS OXYGEN CONTENT 15.3 Vol % (12.0-20.0); BLOOD GAS PCO2 52 mmHg (38-42); BLOOD GAS PO2 157 mmHG (61-120); BLOOD GAS TOTAL HGB 10.9 G/DL (12.0-16.0); CRITICAL VALUE YES; TEMP CORR TO 98.6
[2017-02-10 21:26] LABS: DRAW SITE RT BRACHIAL; FIO2 100 %; NUMBER OF ARTERIAL PUNCTURES 1; OXYGEN DEVICE VENTILATOR; STAT YES; VENT SETTINGS AC14/550/5 PEEP
[2017-02-10] MEDS: RESP: ALBUTEROL 2.5 MG/IPRATROPIUM 0.5 MG NEB (SCH) INH (21:29)
[2017-02-10] MEDS: LACTOBACILLUS ACIDOPHILUS TAB PO SCH (21:45)
[2017-02-10] MEDS ORDERED: PILL SPLITTER OTHER PRN (21:45)
[2017-02-10] MEDS: MELATONIN 5 MG TAB PO SCH (21:45)
[2017-02-10] MEDS: CALCITRIOL 0.25 MCG CAP PO SCH (22:00)
[2017-02-10] MEDS ORDERED: SODIUM BICARBONATE 8.4% INJ 50 MEQ/50 ML SYR ONE (22:14)
[2017-02-10] MEDS ORDERED: SODIUM BICARBONATE 8.4% INJ 50 ML ONE (22:14)
[2017-02-10] MEDS: FAMOTIDINE 20 MG/2 ML VIAL IV PUSH SCH (22:24)
[2017-02-10] MEDS: CEFEPIME INJ 2,000 MG in SODIUM CHLORIDE 0.9% INJ 100 ML IV SCH (22:28)
[2017-02-10] MEDS: DOCUSATE SODIUM 50 MG/SENNA 8.6 MG TAB PO SCH (22:28)
[2017-02-10] MEDS: QUEtiapine FUMARATE 25 MG TAB PO SCH (22:28)
[2017-02-10] MEDS: CARVEDILOL 3.125 MG TAB PO SCH (22:28)
[2017-02-10] MEDS: ATORVASTATIN 40 MG TAB PO SCH (22:28)
[2017-02-10] MEDS: AZITHROMYCIN INJ 500 MG in SODIUM CHLOR 0.9% 250 ML INJ 250 ML IV SCH (23:11)
[2017-02-11] VITALS (20 sets, daily range): BP systolic 107–170; BP diastolic 54–78; PULSE 57–89; RESP 18–28; TEMP 97.7–98.6; O2SAT 94–100
[2017-02-11] MEDS: SODIUM CHLOR 0.9% 1000 ML INJ 1,000 ML IV SCH ×3 (00:17→11:05)
[2017-02-11] MEDS: PROPOFOL 1000 MG/100 ML INJ 100 ML IV PRN ×2 (01:30→06:10)
[2017-02-11] MEDS ORDERED: GLUCAGON 1 MG/ML VIAL OTHER PRN (01:45)
[2017-02-11] MEDS ORDERED: DEXTROSE 50% IN WATER 50 ML VIAL(D50) IV PRN (01:45)
[2017-02-11] MEDS: methylPREDNISolone SOD SUCC 40 MG/1 ML VIAL IV PUSH SCH ×4 (02:51→20:25)
[2017-02-11] MEDS: RESP: ALBUTEROL 2.5 MG/IPRATROPIUM 0.5 MG NEB (SCH) INH ×4 (03:11→20:33)
--- NOTE | 2017-02-11 03:18 | RADRPT ---
EXAM DATE/TIME: 02/11/2017 03:00 [facility] COMPARISON: CHEST SINGLE AP, February 10, 2017, 18:08. INDICATIONS : Respiratory failure. MEDICAL HISTORY : Chronic obstructive pulmonary disease. Hypertension SURGICAL HISTORY : CABG. Coronary artery stent. ENCOUNTER: Subsequent ACUITY: 2 days PAIN SCORE: Non-responsive. LOCATION: Bilateral chest FINDINGS: Portable AP view of the chest demonstrates cardiac silhouette is at the upper limits or normal in thi s patient post median sternotomy. Multiple lines overlie the patient. ETT, nasogastric tube, and righ t IJ central line remain present. There are bibasilar pleural-parenchymal opacities, right larger denisha n left. No pneumothorax is visualized. CONCLUSION: Stable chest x-ray with bilateral pleural effusions with associated volume loss and/or consolidation. Right effusion is larger than left. Ap Carrington MD on February 11, 2017 at 3:15 Board Certified Radiologist. This report was verified electronically.
[2017-02-11] MEDS: CHLORHEXIDINE GLUCONATE 2 % 1 PACK (2 CLOTHS) TOP SCH (04:00)
--- NOTE | 2017-02-11 04:05 | RADRPT ---
EXAM DATE/TIME: 02/11/2017 03:29 [facility] COMPARISON: CT BRAIN W/O CONTRAST, July 29, 2013, 12:32. INDICATIONS : Altered mental status. RADIATION DOSE: 36.42 CTDIvol (mGy) MEDICAL HISTORY : Congestive heart failure. Deep venous thrombosis. Diabetes mellitus type 2.Hypertension. SURGICAL HISTORY : CABG Cardiac catherization. ENCOUNTER: Initial ACUITY: 1 day PAIN SCALE: Non-responsive LOCATION: cranial TECHNIQUE: Multiple contiguous axial images were obtained of the head. Using automated exposure control and adj ustment of the mA and/or kV according to patient size, radiation dose was kept as low as reasonably a chievable to obtain optimal diagnostic quality images. DICOM format image data is available electro nically for review and comparison. FINDINGS: CEREBRUM: The ventricles are normal. There is mild atrophy. No evidence of midline shift, mass lesion, hemorrh age or acute infarction. No extra-axial fluid collections are seen. POSTERIOR FOSSA: The cerebellum and brainstem demonstrate no acute finding. The 4th ventricle is midline. The cerebe llopontine angle is unremarkable. EXTRACRANIAL: There is fluid in the nasopharynx. Hypodensity is present within the right globe with prior scleral b anding. SKULL: The calvaria is intact. No evidence of skull fracture. CONCLUSION: Stable noncontrast head CT. No acute intracranial abnormality is identified. Ap Carrington MD on February 11, 2017 at 4:01 Board Certified Radiologist. This report was verified electronically.
[2017-02-11] MEDS: CARBAMIDE PEROXIDE 6.5% OTIC SOLN 15 ML BTL EACH EAR SCH (06:00)
[2017-02-11] MEDS: LEVOTHYROXINE SODIUM 112 MCG TAB PO SCH (06:09)
[2017-02-11] MEDS: CEFEPIME INJ 2,000 MG in SODIUM CHLORIDE 0.9% INJ 100 ML IV SCH ×3 (06:09→22:42)
[2017-02-11] MEDS: LEVOTHYROXINE SODIUM 25 MCG TAB PO SCH (06:09)
[2017-02-11] MEDS: INSULIN ASPART SUPPLEMENTAL SCALE SQ SCH ×4 (07:00→20:54)
[2017-02-11 07:38] LABS: BASOPHIL % 0.1 % (0.0-2.0); HEMATOCRIT 27.9 % (39.0-51.0); HEMO FLAGS DIFF FINAL; LYMPH % 3.3 % (9.0-44.0); LYMPHOCYTE # 0.3 TH/MM3 (1.0-4.8); MEAN CELL VOLUME 75.7 FL (80.0-100.0); MEAN CORPUSCULAR HEMOGLOBIN 24.9 PG (27.0-34.0); MEAN CORPUSCULAR HGB CONC 32.9 % (32.0-36.0); MONO % 2.1 % (0.0-8.0); NEUT % 94.5 % (16.0-70.0); PLATELET COUNT 197 TH/MM3 (150-450); RED BLOOD COUNT 3.69 MIL/MM3 (4.50-5.90); WHITE BLOOD COUNT 10.6 TH/MM3 (4.0-11.0)
[2017-02-11 08:06] LABS: CHLORIDE 111 MEQ/L (98-107); POTASSIUM 4.8 MEQ/L (3.5-5.1); SODIUM (NA) 144 MEQ/L (136-145)
[2017-02-11 08:19] LABS: ALKALINE PHOSPHATASE 93 U/L (45-117); ALT (GPT) 31 U/L (12-78); ANION GAP 10 MEQ/L (5-15); AST (GOT) 38 U/L (15-37); BLOOD UREA NITROGEN 29 MG/DL (7-18); GLOMERULAR FILTRATION RATE 47 ML/MIN (>89); MAGNESIUM 1.8 MG/DL (1.5-2.5); TOTAL BILIRUBIN ADULT 0.4 MG/DL (0.2-1.0)
[2017-02-11] MEDS: ARTIFICIAL TEARS OPTH SOLN 15 ML BTL EACH EYE SCH ×3 (09:00→18:00)
[2017-02-11] MEDS: SODIUM CHLORIDE 0.9% FLUSH 10 ML FLUSH SCH ×2 (09:00→20:25)
[2017-02-11] MEDS: prednisoLONE ACETATE 1% OPHT SUSP 5 ML BTL RIGHT EYE SCH ×2 (09:00→20:53)
[2017-02-11] MEDS: MORPHINE SULFATE 15 MG CONTROLLED RELEASE TAB PO SCH ×2 (09:00→20:26)
[2017-02-11] MEDS: FERROUS SULFATE 325 MG (65 MG ELEMENTAL IRON) TAB PO SCH (09:00)
[2017-02-11] MEDS: FAMOTIDINE 20 MG/2 ML VIAL IV PUSH SCH ×2 (09:30→20:25)
[2017-02-11] MEDS: LACTOBACILLUS ACIDOPHILUS TAB PO SCH ×2 (09:31→20:26)
[2017-02-11] MEDS: CHOLECALCIFEROL (VIT D3) 1000 UNIT TAB PO SCH (09:31)
[2017-02-11] MEDS: DOCUSATE SODIUM 50 MG/SENNA 8.6 MG TAB PO SCH ×2 (09:31→20:26)
[2017-02-11] MEDS: ASCORBIC ACID 500 MG TAB PO SCH ×2 (09:31→20:25)
[2017-02-11] MEDS: MULTIVITAMINS/MINERALS THERAPEUTIC TAB PO SCH (09:31)
[2017-02-11] MEDS: CARVEDILOL 3.125 MG TAB PO SCH ×2 (09:31→20:25)
[2017-02-11] MEDS: SIMETHICONE 125 MG CHEWABLE TAB PO SCH (10:03)
[2017-02-11] MEDS: RIVAROXABAN 20 MG TAB PO SCH (10:04)
--- NOTE | 2017-02-11 10:46 | EKG ---
Date Performed: 02/10/2017 Time Performed: 18:41:38 PTAGE: 66 years EKG: Sinus rhythm LOW QRS VOLTAGE IN EXTREMITY LEADS MODERATE INTRAVENTRICULAR CONDUCTION DELAY NONSPECIFIC ST & T-WAV E ABNORMALITY ABNORMAL ECG PREVIOUS TRACING : 09/07/2015 16.51 Compared to prior tracing, the ST-T wave changes are not as pronounced. DOCTOR: Tavo Garcia Interpretating Date/Time 02/11/2017 10:45:06
--- NOTE | 2017-02-11 13:30 | HHI.CCPN ---
Subjective Remarks/Hospital Course 66-year-old brought to the emergency department via EMS for shortness of breath. According to EMS the patient was at the [facility] earlier today when he became short of breath. According to chart the patient apparently was administered Xanax at that time for possible anxiety and was reevaluated later. When the patient was reevaluated later was noted that his oxygen saturation was in the 40s. EMS states when they arrived the patient was breathing, agonal , with O2 sat in the 40s. The patient was brought to the emergency department while being bagged, they were unable to obtain IV access. He was immediately intubated by ED attending that also placed IO for an access and later 02/11: Oxygen diffusion improved. Breathes comfortably on SBT 03/20, TVs small. Renal function moving in right direction. Effusions implicate heart failure. Lower leg wounds weeping from edema/tension. Increase diuretics. Objective Vital Signs Date Time Temp Pulse Resp B/P (MAP) Pulse Ox O2 Delivery O2 Flow Rate FiO2 02/11/17 13:15 40 02/11/17 12:00 97.7 57 18 124/58 (80) 96 02/11/17 07:00 Mechanical Ventilator Intake and Output 02/11/17 02/11/17 02/12/17 08:00 16:00 00:00 Intake Total 350 ml 1000 ml Output Total 550 ml Balance -200 ml 1000 ml Result Diagram: 02/11/17 0716 02/11/17 0716 Other Results Microbiology Date/Time Source Procedure Growth Status 02/10/17 17:54 Urine Catheterized Urine Legionella Antigen - Final PRESUMPTIVE NEGATIVE FOR LEGIONELLA P... Complete 02/10/17 17:54 Urine Catheterized Urine Streptococcus pneumoniae Antigen (M - Final PRESUMPTIVE NEGATIVE FOR STREPTOCOCCU... Complete Laboratory Tests Test 02/10/17 19:35 Blood Gas Puncture Site RT BRACHIAL Blood Gas Patient Temperature 98.6 Blood Gas HCO3 22 mmol/L (22-26) Blood Gas Base Excess -4.3 mmol/L (-2-2) Blood Gas Oxygen Saturation 98 % (90-100) Arterial Blood pH 7.25 (7.380-7.420) Arterial Blood Partial Pressure CO2 52 mmHg (38-42) Arterial Blood Partial Pressure O2 157 mmHG (61-120) Arterial Blood Oxygen Content 15.3 Vol % (12.0-20.0) Arterial Blood Carboxyhemoglobin 1.2 % (0-4) Arterial Blood Methemoglobin 0.3 % (0-2) Blood Gas Hemoglobin 10.9 G/DL (12.0-16.0) Oxygen Delivery Device VENTILATOR Blood Gas Ventilator Setting AC14/550/5 PEEP Blood Gas Inspired Oxygen 100 % Imaging Last 24 hours Impressions Chest X-Ray 02/10/17 8678 Signed Impressions: Service Date/Time: Friday, February 10, 2017 18:08 - CONCLUSION: 1. Suspected bilateral pleural effusions being worse on the right with some degree of accompanying atelectasis or consolidation at the lung bases. 2. Enlargement of the cardiac silhouette. The patient is status post sternotomy. 3. Tubes and lines are in good position. Ap Quigley MD Objective Remarks GENERAL: Morbidly obese lightly sedated and intubated SKIN: Warm and dry. HEAD: Normocephalic. NECK: Supple, trachea midline. Orally intubated. CARDIOVASCULAR: Regular rate and rhythm without soft systolic murmur, no gallops , or rubs. RESPIRATORY: Breath sounds equal bilaterally. No accessory muscle use. No wheezes. GASTROINTESTINAL: Abdomen soft, non-tender, nondistended. BS active. MUSCULOSKELETAL: No cyanosis, chronic pitting edema up to his knees NEURO EXAM: Mental Status: The patient is sedated and intubated Cranial Nerves: Pupils are round, reactive to light. Reflexes: Patellar 2/4 bilaterally. No clonus. A/P Assessment and Plan Respiratory failure - Suspected underlying pneumonia - Broad-spectrum antibiotic - Urine antigens - Panculture - Follow-up cultures and de-escalate per sensitivity - Mechanical ventilation - CXR and ABG daily - Vent bundle Heart Failure - Wound consult for leg. - Increase diuretics. CAD - No acute coronary syndrome - Troponin series to follow - Beta kristopher Paroxysmal atrial fibrillation - Coreg for rate control - Xarelto Hypertension - Carvediol CKD stage III - With hyperkalemia without EKG change - Treated emergently with insulin bicarbonate glucose and calcium - Continue IV hydration - Strict I's and O's - Monitor trend Diabetes mellitus, type II - Insulin-dependent - Insulin sliding scale - Long-acting insulin on hold until tube feeds at the goal COPD - Exacerbation - DuoNeb scheduled and when necessary - Steroid Hypothyroidism - Levothyroxine Mood disorder - Quetiapine GERD - Pepcid History of DVT - Xarelto DVT GI prophylaxis - Teds SCDs - Xarelto - Pepcid Overall impression: Chronic systolic heart failure with acute exacerbation, further hampered by sedation possibly. Critically ill now and requiring mechanical ventilation. Unable to wean ventilator. Critical Care 43 mins Jasbir Mclean MD Feb 11, 2017 13:30
[2017-02-11] MEDS ORDERED: FUROSEMIDE 40 MG/4 ML VIAL IV PUSH SCH ×2 (14:00→18:00)
[2017-02-11] MEDS: ASPIRIN 81 MG CHEW TAB CHEW SCH (14:00)
[2017-02-11] MEDS ORDERED: LABETALOL HCL 100 MG/20 ML VIAL IV PUSH PRN (14:15)
[2017-02-11] MEDS ORDERED: hydrALAZINE HCL 20 MG/ML VIAL IV PUSH PRN (14:15)
[2017-02-11] MEDS: MORPHINE SULFATE 4 MG/ML INJ IV PRN ×2 (14:19→17:00)
[2017-02-11] MEDS ORDERED: METOLAZONE 5 MG TAB PO ONE (15:00)
--- NOTE | 2017-02-11 16:15 | ECHRPT ---
Indication: heart failure CONCLUSIONS The left ventricular systolic function is severely reduced with an estimated ejection fraction in th e range of 20-25%. Normal left ventricular size. Wall thickness is normal. There is global left ventricular dysfunction. The left atrial size is mildly dilated. Mild mitral valve regurgitation. Moderate to severe aortic valve sclerosis is present. There is estimated moderate pulmonary hypertension present (range 50-60 mmHg). There is mild tricuspid valve regurgitation. The estimated pulmonary arterial pressure is 57 mmHg. The pulmonary valve is not well visualized. The inferior vena cava is dilated. BP: 124 / 58 HR: 80 Rhythm: Sinus MEASUREMENTS (Male / Female) Normal Values Technical Quality:Fair 2D ECHO LV Diastolic Diameter PLAX 4.8 cm 4.2 - 5.9 / 3.9 - 5.3 cm LV Systolic Diameter PLAX 4.3 cm IVS Diastolic Thickness 1.0 cm 0.6 - 1.0 / 0.6 - 0.9 cm LVPW Diastolic Thickness 0.9 cm 0.6 - 1.0 / 0.6 - 0.9 cm LV Relative Wall Thickness 0.4 RV Internal Dim ED PLAX 3.2 cm LVOT Diameter 1.9 cm LA Systolic Diameter LX 4.5 cm 3.0 - 4.0 / 2.7 - 3.8 cm LV Ejection Fraction MOD 4C 24.5 % LV Cardiac Index MOD 4C 1456.5 cm/minm LV Ejection Fraction 4C AL 26.6 % LV Cardiac Index 4C AL 1645.6 cm/minm M-MODE Aortic Root Diameter MM 2.7 cm LA Systolic Diameter MM 4.4 cm LA Ao Ratio MM 1.6 AV Cusp Separation MM 1.9 cm DOPPLER AV Peak Velocity 151.0 cm/s AV Peak Gradient 9.1 mmHg LVOT Peak Velocity 77.5 cm/s LVOT Peak Gradient 2.4 mmHg AV Area Cont Eq pk 1.5 cm MV Area PHT 6.7 cm Mitral E Point Velocity 118.0 cm/s Mitral A Point Velocity 43.4 cm/s Mitral E to A Ratio 2.7 TR Peak Velocity 342.0 cm/s TR Peak Gradient 46.8 mmHg FINDINGS LEFT VENTRICLE The left ventricular systolic function is severely reduced with an estimated ejection fraction in th e range of 20-25%. Normal left ventricular size. Wall thickness is normal. There is global left ventricular dysfunction. RIGHT VENTRICLE Normal right ventricular size and systolic function. LEFT ATRIUM The left atrial size is mildly dilated. RIGHT ATRIUM The right atrial size is normal. ATRIAL SEPTUM Normal atrial septal thickness without atrial level shunting by limited color doppler interrogation. AORTA The aortic root and proximal ascending aorta are normal in size on limited imaging. MITRAL VALVE Mild mitral valve regurgitation. AORTIC VALVE Moderate to severe aortic valve sclerosis is present. TRICUSPID VALVE There is estimated moderate pulmonary hypertension present (range 50-60 mmHg). There is mild tricuspid valve regurgitation. The estimated pulmonary arterial pressure is 57 mmHg. PULMONARY VALVE The pulmonary valve is not well visualized. VESSELS The inferior vena cava is dilated. PERICARDIUM No pericardial effusion. Tavo Garcia MD (Electronically Signed) Final Date:11 February 2017 16:14
[2017-02-11] MEDS ORDERED: FUROSEMIDE 40 MG/4 ML VIAL ONE ×2 (16:44→16:45)
[2017-02-11] MEDS: FUROSEMIDE 100 MG/10 ML VIAL IV PUSH SCH (17:00)
[2017-02-11] MEDS: QUEtiapine FUMARATE 25 MG TAB PO SCH (20:26)
[2017-02-11] MEDS: MELATONIN 5 MG TAB PO SCH (20:26)
[2017-02-11] MEDS: ATORVASTATIN 40 MG TAB PO SCH (20:29)
[2017-02-11] MEDS: AZITHROMYCIN INJ 500 MG in SODIUM CHLOR 0.9% 250 ML INJ 250 ML IV SCH (22:43)
[2017-02-12] VITALS (8 sets, daily range): BP systolic 109–167; BP diastolic 54–75; PULSE 68–89; RESP 18–28; TEMP 97.6–98.6; O2SAT 97–99
[2017-02-12] MEDS: methylPREDNISolone SOD SUCC 40 MG/1 ML VIAL IV PUSH SCH ×3 (02:58→21:58)
[2017-02-12] MEDS: RESP: ALBUTEROL 2.5 MG/IPRATROPIUM 0.5 MG NEB (SCH) INH ×3 (03:30→14:47)
[2017-02-12] MEDS: CHLORHEXIDINE GLUCONATE 2 % 1 PACK (2 CLOTHS) TOP SCH (04:00)
[2017-02-12] MEDS: CEFEPIME INJ 2,000 MG in SODIUM CHLORIDE 0.9% INJ 100 ML IV SCH ×2 (05:29→14:00)
[2017-02-12] MEDS: LEVOTHYROXINE SODIUM 112 MCG TAB PO SCH (05:29)
[2017-02-12] MEDS: LEVOTHYROXINE SODIUM 25 MCG TAB PO SCH (05:30)
[2017-02-12] MEDS: CARBAMIDE PEROXIDE 6.5% OTIC SOLN 15 ML BTL EACH EAR SCH (05:30)
[2017-02-12 06:28] LABS: BICARBONATE 25.3 MEQ/L (21.0-32.0); MAGNESIUM 2.1 MG/DL (1.5-2.5); POTASSIUM 4.4 MEQ/L (3.5-5.1)
[2017-02-12] MEDS: INSULIN ASPART SUPPLEMENTAL SCALE SQ SCH ×4 (07:20→21:00)
[2017-02-12] MEDS: MULTIVITAMINS/MINERALS THERAPEUTIC TAB PO SCH (08:23)
[2017-02-12] MEDS: MORPHINE SULFATE 15 MG CONTROLLED RELEASE TAB PO SCH ×2 (08:24→22:00)
[2017-02-12] MEDS: ASPIRIN 81 MG CHEW TAB CHEW SCH (08:24)
[2017-02-12] MEDS: ASCORBIC ACID 500 MG TAB PO SCH ×2 (08:24→22:01)
[2017-02-12] MEDS: FERROUS SULFATE 325 MG (65 MG ELEMENTAL IRON) TAB PO SCH (08:24)
[2017-02-12] MEDS: LACTOBACILLUS ACIDOPHILUS TAB PO SCH ×2 (08:24→22:00)
[2017-02-12] MEDS: CHOLECALCIFEROL (VIT D3) 1000 UNIT TAB PO SCH (08:24)
[2017-02-12] MEDS: CARVEDILOL 3.125 MG TAB PO SCH ×2 (08:25→22:00)
[2017-02-12] MEDS: FAMOTIDINE 20 MG/2 ML VIAL IV PUSH SCH ×2 (08:25→21:58)
[2017-02-12] MEDS: DOCUSATE SODIUM 50 MG/SENNA 8.6 MG TAB PO SCH (08:25)
[2017-02-12] MEDS: MORPHINE SULFATE 4 MG/ML INJ IV PRN (08:26)
[2017-02-12] MEDS: SODIUM CHLORIDE 0.9% FLUSH 10 ML FLUSH SCH ×2 (08:26→21:58)
[2017-02-12] MEDS: CALCITRIOL 0.25 MCG CAP PO SCH (08:30)
[2017-02-12] MEDS: prednisoLONE ACETATE 1% OPHT SUSP 5 ML BTL RIGHT EYE SCH ×2 (08:31→19:17)
[2017-02-12] MEDS: FUROSEMIDE 100 MG/10 ML VIAL IV PUSH SCH ×2 (08:31→21:57)
[2017-02-12] MEDS: ARTIFICIAL TEARS OPTH SOLN 15 ML BTL EACH EYE SCH ×3 (08:31→18:00)
[2017-02-12] MEDS: SIMETHICONE 125 MG CHEWABLE TAB PO SCH (08:43)
[2017-02-12] MEDS: RIVAROXABAN 20 MG TAB PO SCH (08:43)
[2017-02-12] MEDS: INSULIN HUMAN NPH/R 70/30 1,000 UNITS/10 ML VIAL SQ SCH ×2 (10:00→21:00)
--- NOTE | 2017-02-12 10:08 | HHI.PR ---
Subjective Remarks Follow-up acute on chronic systolic CHF/respiratory failure/suspected community- acquired pneumonia 02/12/17-patient seen and examined, reports some improvement of shortness of breath. Denies any chest pain. Blood glucose slightly up Objective Vitals Vital Signs Date Time Temp Pulse Resp B/P (MAP) Pulse Ox O2 Delivery O2 Flow Rate FiO2 02/12/17 08:26 Nasal Cannula 2.00 02/12/17 08:00 98.6 75 22 147/66 (93) 99 02/12/17 08:00 89 02/12/17 07:00 100 Nasal Cannula 4.00 02/12/17 06:00 74 02/12/17 04:00 98.0 72 18 124/60 (81) 98 02/12/17 04:00 72 02/12/17 02:00 76 02/12/17 00:00 98.2 84 18 109/54 (72) 97 02/12/17 00:00 84 02/11/17 22:00 80 02/11/17 20:34 95 Nasal Cannula 4.00 02/11/17 20:00 98.2 88 23 137/61 (86) 96 02/11/17 20:00 88 02/11/17 19:00 94 Nasal Cannula 4.00 02/11/17 18:00 89 02/11/17 16:00 98.6 80 28 140/65 (90) 94 02/11/17 16:00 85 02/11/17 14:30 26 02/11/17 14:00 94 Nasal Cannula 4.00 02/11/17 14:00 94 Nasal Cannula 4 02/11/17 13:15 40 02/11/17 12:00 97.7 57 18 124/58 (80) 96 02/11/17 12:00 40 I/O 02/11/17 02/11/17 02/11/17 02/12/17 02/12/17 02/12/17 07:00 15:00 23:00 07:00 15:00 23:00 Intake Total 450 ml 1000 ml 1243 ml 1711 ml Output Total 550 ml 1150 ml 1250 ml Balance -100 ml 1000 ml 93 ml 461 ml Intake Oral 240 ml 240 ml IV Total 450 ml 1000 ml 581 ml 1471 ml Tube Feeding 122 ml Tube Irrigant 300 ml Output Urine Total 550 ml 1150 ml 1250 ml # Bowel Movements 0 0 Result Diagram: 02/11/17 0716 02/12/17 0535 Imaging Last Impressions Chest X-Ray 02/11/17 0600 Signed Impressions: Service Date/Time: Saturday, February 11, 2017 03:00 - CONCLUSION: Stable chest x-ray with bilateral pleural effusions with associated volume loss and/or consolidation. Right effusion is larger than left. Ap Carrington MD Head CT 02/10/17 0000 Signed Impressions: Service Date/Time: Saturday, February 11, 2017 03:29 - CONCLUSION: Stable noncontrast head CT. No acute intracranial abnormality is identified. Ap Carrington MD Objective Remarks GENERAL: NAD SKIN: Warm and dry. HEAD: Normocephalic. EYES: No scleral icterus. No injection or drainage. NECK: Supple, trachea midline. No JVD or lymphadenopathy. CARDIOVASCULAR: Regular rate and rhythm without murmurs, gallops, or rubs. RESPIRATORY: Breath sounds equal bilaterally. No accessory muscle use. GASTROINTESTINAL: Abdomen soft, non-tender, nondistended. MUSCULOSKELETAL: No cyanosis, or edema. Chronic bilateral lower extremity venous stasis BACK: Nontender without obvious deformity. No CVA tenderness. A/P Problem List: (1) Acute on chronic systolic (congestive) heart failure ICD Code: I50.23 - Acute on chronic systolic (congestive) heart failure Assessment and Plan 66 year-old man with Acute on chronic systolic heart failure Continue with Lasix 60 mg IV every 12 hours 2-D echo with EF of 20-25% GRETCHEN inhibitor contraindicated secondary to acute on chronic kidney failure ACS ruled out per protocol with serial cardiac enzyme and EKGs Acute respiratory failure Resolved DuoNeb, keep oxygen saturation above 90% Perform walk test prior to discharge Chronic venous stasis Wound care nurse consult Acute COPD exacerbation Decrease Solu-Medrol to 20 mg every 12 hour Continue with LABA, duo neb, current antibiotics Community-acquired pneumonia Currently on azithromycin and cefepime Urine antigens for pneumococcus and legionella negative Diabetes type 2 Labile blood glucose Restart NPH twice a day Continue sliding scale Atrial fibrillation Currently rate control on Xarelto and Coreg Hypertension Normotensive on Coreg Acute on chronic kidney disease stage III Improving, IV fluid hydration contraindicated due to acute on chronic CHF exacerbation Monitor BUN and creatinine and avoid all nephrotoxic drugs Hyperkalemia without EKG changes-resolved Status post treatment with emergently with insulin bicarbonate glucose and calcium Hypothyroidism Continue Levothyroxine Mood disorder Continue Quetiapine GERD - Pepcid History of DVT - Xarelto DVT GI prophylaxis - Teds SCDs - Xarelto - Pepangelad Jayden Mckeon MD Feb 12, 2017 10:08
--- NOTE | 2017-02-12 13:20 | PD.WCN.NOT ---
Wound Consult Description: Received consult for wound management of lower legs from Doctor Tiara Giraldo [facility] Feb 12, 2017 13:20
--- NOTE | 2017-02-12 13:47 | PD.WCN.NOT ---
Wound Consult Description: Received consult for wound management of lower legs from Doctor Mclean Communicated with: Doctor Mclean Recommendation: Please apply shaving cream to BLE and let sit on patient for 10 minutes and rinse off and pat dry. Apply lac hydrin lotion BID Additional Information: Patient seen on 3rd floor [facility] for evaluation of Bilateral lower legs. Patient sitting in chair in with legs in dependent position. Bilateral legs are noted with slight non pitting edema, erythema ,dry peeling skin, and diffuse recently closed wounds.No open wound noted at this time. On L foot patient has deep fissure to dorsal distal foot and small blood filled blister to L great toe that were left open to air. Tiara Ellsworth [facility] Feb 12, 2017 13:47
[2017-02-12] MEDS: MELATONIN 5 MG TAB PO SCH (21:00)
[2017-02-12] MEDS: AZITHROMYCIN INJ 500 MG in SODIUM CHLOR 0.9% 250 ML INJ 250 ML IV SCH (22:00)
[2017-02-12] MEDS: ATORVASTATIN 40 MG TAB PO SCH (22:00)
[2017-02-12] MEDS: QUEtiapine FUMARATE 25 MG TAB PO SCH (22:01)
[2017-02-13] VITALS (9 sets, daily range): BP systolic 128–172; BP diastolic 58–77; PULSE 60–91; RESP 16–20; TEMP 97.1–98.5; O2SAT 92–97
[2017-02-13] MEDS: RESP: ALBUTEROL 2.5 MG/IPRATROPIUM 0.5 MG NEB (SCH) INH ×5 (00:04→21:46)
[2017-02-13] MEDS ORDERED: CEFEPIME INJ 2,000 MG in SODIUM CHLORIDE 0.9% INJ 100 ML IV SCH (02:00)
[2017-02-13] MEDS: CHLORHEXIDINE GLUCONATE 2 % 1 PACK (2 CLOTHS) TOP SCH (04:00)
[2017-02-13] MEDS: LEVOTHYROXINE SODIUM 112 MCG TAB PO SCH (05:48)
[2017-02-13] MEDS: LEVOTHYROXINE SODIUM 25 MCG TAB PO SCH (05:48)
[2017-02-13] MEDS: CARBAMIDE PEROXIDE 6.5% OTIC SOLN 15 ML BTL EACH EAR SCH (05:50)
[2017-02-13 06:10] LABS: AUTOMATED NEUTROPHIL # 13.2 TH/MM3 (1.8-7.7); BASOPHIL # 0.1 TH/MM3 (0-0.2); BASOPHIL % 0.4 % (0.0-2.0); HEMATOCRIT 29.3 % (39.0-51.0); HEMO FLAGS DIFF FINAL; LYMPH % 3.6 % (9.0-44.0); LYMPHOCYTE # 0.5 TH/MM3 (1.0-4.8); MEAN CELL VOLUME 75.9 FL (80.0-100.0); MEAN CORPUSCULAR HEMOGLOBIN 23.8 PG (27.0-34.0); MEAN CORPUSCULAR HGB CONC 31.3 % (32.0-36.0); MONO % 6.6 % (0.0-8.0); NEUT % 89.4 % (16.0-70.0); PLATELET COUNT 220 TH/MM3 (150-450); RED BLOOD COUNT 3.86 MIL/MM3 (4.50-5.90); RED CELL DISTRIBUTION WIDTH 18.3 % (11.6-17.2); WHITE BLOOD COUNT 14.7 TH/MM3 (4.0-11.0)
[2017-02-13] MEDS: INSULIN ASPART SUPPLEMENTAL SCALE SQ SCH ×4 (06:28→21:00)
[2017-02-13 06:35] LABS: BICARBONATE 28.5 MEQ/L (21.0-32.0); POTASSIUM 4.2 MEQ/L (3.5-5.1)
[2017-02-13] MEDS: INSULIN HUMAN NPH/R 70/30 1,000 UNITS/10 ML VIAL SQ SCH (08:21)
[2017-02-13] MEDS: LACTOBACILLUS ACIDOPHILUS TAB PO SCH ×2 (08:28→21:46)
[2017-02-13] MEDS: ASPIRIN 81 MG CHEW TAB CHEW SCH (08:28)
[2017-02-13] MEDS: RIVAROXABAN 20 MG TAB PO SCH (08:28)
[2017-02-13] MEDS: FERROUS SULFATE 325 MG (65 MG ELEMENTAL IRON) TAB PO SCH (08:28)
[2017-02-13] MEDS: CHOLECALCIFEROL (VIT D3) 1000 UNIT TAB PO SCH (08:29)
[2017-02-13] MEDS: SIMETHICONE 125 MG CHEWABLE TAB PO SCH (08:29)
[2017-02-13] MEDS: MULTIVITAMINS/MINERALS THERAPEUTIC TAB PO SCH (08:29)
[2017-02-13] MEDS: CARVEDILOL 3.125 MG TAB PO SCH ×2 (08:29→21:45)
[2017-02-13] MEDS: ASCORBIC ACID 500 MG TAB PO SCH ×2 (08:29→21:46)
[2017-02-13] MEDS: methylPREDNISolone SOD SUCC 40 MG/1 ML VIAL IV PUSH SCH (08:30)
[2017-02-13] MEDS: FAMOTIDINE 20 MG/2 ML VIAL IV PUSH SCH ×2 (08:30→21:45)
[2017-02-13] MEDS: MORPHINE SULFATE 15 MG CONTROLLED RELEASE TAB PO SCH ×2 (08:30→21:46)
[2017-02-13] MEDS: prednisoLONE ACETATE 1% OPHT SUSP 5 ML BTL RIGHT EYE SCH ×2 (08:31→21:47)
[2017-02-13] MEDS: SODIUM CHLORIDE 0.9% FLUSH 10 ML FLUSH SCH ×2 (08:31→21:44)
[2017-02-13] MEDS: ARTIFICIAL TEARS OPTH SOLN 15 ML BTL EACH EYE SCH ×3 (08:31→17:11)
[2017-02-13] MEDS: FUROSEMIDE 100 MG/10 ML VIAL IV PUSH SCH (08:38)
--- NOTE | 2017-02-13 11:27 | HHI.PR ---
Subjective Remarks Follow-up acute on chronic systolic CHF/respiratory failure/suspected community- acquired pneumonia 02/12/17-patient seen and examined, reports some improvement of shortness of breath. Denies any chest pain. Blood glucose slightly up 02/13/17-patient seen and examined, denies any shortness of breath, no acute event overnight and stable. Objective Vitals Vital Signs Date Time Temp Pulse Resp B/P (MAP) Pulse Ox O2 Delivery O2 Flow Rate FiO2 02/13/17 09:47 97 Nasal Cannula 4.00 02/13/17 08:00 97.8 66 18 160/77 (104) 96 02/13/17 06:23 97.1 69 16 146/67 (93) 95 02/13/17 01:38 98.0 60 20 128/58 (81) 95 02/13/17 00:04 95 Nasal Cannula 4.00 02/12/17 23:13 97.6 80 18 167/75 (105) 98 02/12/17 20:00 95 Nasal Cannula 4.00 02/12/17 17:04 98.0 82 20 166/72 (103) 98 02/12/17 12:00 97.7 68 28 144/64 (90) 98 02/12/17 12:00 77 I/O 02/12/17 02/12/17 02/12/17 02/13/17 02/13/17 02/13/17 06:59 14:59 22:59 06:59 14:59 22:59 Intake Total 1711 ml 640 ml Output Total 1250 ml 1550 ml 1950 ml Balance 461 ml -910 ml -1950 ml Intake Oral 240 ml 540 ml IV Total 1471 ml 100 ml Output Urine Total 1250 ml 1550 ml 1950 ml # Voids 1 # Bowel Movements 0 0 Result Diagram: 02/13/17 0600 02/13/17 0600 Imaging Last Impressions Chest X-Ray 02/11/17 06 Signed Impressions: Service Date/Time: Saturday, February 11, 2017 03:00 - CONCLUSION: Stable chest x-ray with bilateral pleural effusions with associated volume loss and/or consolidation. Right effusion is larger than left. Ap Carrington MD Head CT 02/10/17 0000 Signed Impressions: Service Date/Time: Saturday, February 11, 2017 03:29 - CONCLUSION: Stable noncontrast head CT. No acute intracranial abnormality is identified. Ap Carrington MD Objective Remarks GENERAL: NAD SKIN: Warm and dry. HEAD: Normocephalic. EYES: No scleral icterus. No injection or drainage. NECK: Supple, trachea midline. No JVD or lymphadenopathy. CARDIOVASCULAR: Regular rate and rhythm without murmurs, gallops, or rubs. RESPIRATORY: Breath sounds equal bilaterally. No accessory muscle use. GASTROINTESTINAL: Abdomen soft, non-tender, nondistended. MUSCULOSKELETAL: No cyanosis, or edema. Chronic bilateral lower extremity venous stasis BACK: Nontender without obvious deformity. No CVA tenderness. Procedures none A/P Problem List: (1) Acute on chronic systolic (congestive) heart failure ICD Code: I50.23 - Acute on chronic systolic (congestive) heart failure Assessment and Plan 66 year-old man with Acute on chronic systolic heart failure Change Lasix to 20 mg IV every 12 hours 2-D echo with EF of 20-25% GRETCHEN inhibitor contraindicated secondary to acute on chronic kidney failure ACS ruled out per protocol with serial cardiac enzyme and EKGs Acute respiratory failure Resolved DuoNeb, keep oxygen saturation above 90% Perform walk test prior to discharge Chronic venous stasis Continue with Lac-Hydrin lotion twice a day Acute COPD exacerbation Discontinue Solu-Medrol 20 mg every 12 hour and start prednisone 10 mg by mouth twice a day Continue with LABA, duo neb, current antibiotics Community-acquired pneumonia Currently on azithromycin and cefepime Urine antigens for pneumococcus and legionella negative Diabetes type 2 Good blood glucose readings Continue NPH twice a day as well as sliding scale insulin Atrial fibrillation Currently rate control on Xarelto and Coreg Hypertension Normotensive on Coreg Acute on chronic kidney disease stage III Improving, IV fluid hydration contraindicated due to acute on chronic CHF exacerbation Monitor BUN and creatinine and avoid all nephrotoxic drugs Hyperkalemia without EKG changes-resolved Status post treatment with emergently with insulin bicarbonate glucose and calcium Hypothyroidism Continue Levothyroxine Mood disorder Continue Quetiapine GERD - Pepcid History of DVT - Xarelto DVT GI prophylaxis - Teds SCDs - Xarelto - Pepcid Discharge Planning Likely discharge in Jayden Cueva MD Feb 13, 2017 11:27
[2017-02-13] MEDS: FUROSEMIDE 20 MG/2 ML VIAL IV PUSH SCH (17:11)
[2017-02-13] MEDS: predniSONE 10 MG TAB PO SCH (21:45)
[2017-02-13] MEDS: ATORVASTATIN 40 MG TAB PO SCH (21:46)
[2017-02-13] MEDS: MELATONIN 5 MG TAB PO SCH (21:46)
[2017-02-13] MEDS: QUEtiapine FUMARATE 25 MG TAB PO SCH (21:46)
[2017-02-13] MEDS: MAGNESIUM HYDROXIDE SUSP 30 ML CUP PO PRN (21:50)
[2017-02-14] VITALS: BP 134/63; PULSE 73; RESP 20; TEMP 98.1; O2SAT 93
[2017-02-14] MEDS: INSULIN HUMAN NPH/R 70/30 1,000 UNITS/10 ML VIAL SQ SCH ×2 (00:05→07:57)
[2017-02-14 04:00] VITALS: PULSE 67; TEMP 98.2; O2SAT 96
[2017-02-14] MEDS: CHLORHEXIDINE GLUCONATE 2 % 1 PACK (2 CLOTHS) TOP SCH (04:00)
[2017-02-14] MEDS: RESP: ALBUTEROL 2.5 MG/IPRATROPIUM 0.5 MG NEB (SCH) INH ×2 (04:20→09:03)
[2017-02-14] MEDS: LEVOTHYROXINE SODIUM 25 MCG TAB PO SCH (06:01)
[2017-02-14] MEDS: CARBAMIDE PEROXIDE 6.5% OTIC SOLN 15 ML BTL EACH EAR SCH (06:02)
[2017-02-14] MEDS: LEVOTHYROXINE SODIUM 112 MCG TAB PO SCH (06:02)
[2017-02-14] MEDS: INSULIN ASPART SUPPLEMENTAL SCALE SQ SCH ×2 (07:00→11:52)
[2017-02-14 08:00] VITALS: BP 152/68; PULSE 53; RESP 17; TEMP 97.7; O2SAT 97
[2017-02-14 09:05] VITALS: O2SAT 98
[2017-02-14] MEDS: LACTOBACILLUS ACIDOPHILUS TAB PO SCH (09:54)
[2017-02-14] MEDS: CHOLECALCIFEROL (VIT D3) 1000 UNIT TAB PO SCH (09:54)
[2017-02-14] MEDS: CARVEDILOL 3.125 MG TAB PO SCH (09:54)
[2017-02-14] MEDS: FAMOTIDINE 20 MG/2 ML VIAL IV PUSH SCH (09:54)
[2017-02-14] MEDS: RIVAROXABAN 20 MG TAB PO SCH (09:54)
[2017-02-14] MEDS: MAGNESIUM HYDROXIDE SUSP 30 ML CUP PO PRN (09:54)
[2017-02-14] MEDS: FERROUS SULFATE 325 MG (65 MG ELEMENTAL IRON) TAB PO SCH (09:55)
[2017-02-14] MEDS: SODIUM CHLORIDE 0.9% FLUSH 10 ML FLUSH SCH (09:55)
[2017-02-14] MEDS: MORPHINE SULFATE 15 MG CONTROLLED RELEASE TAB PO SCH (09:55)
[2017-02-14] MEDS: SIMETHICONE 125 MG CHEWABLE TAB PO SCH (09:55)
[2017-02-14] MEDS: ARTIFICIAL TEARS OPTH SOLN 15 ML BTL EACH EYE SCH ×2 (09:55→12:39)
[2017-02-14] MEDS: FUROSEMIDE 20 MG/2 ML VIAL IV PUSH SCH (09:55)
[2017-02-14] MEDS: MULTIVITAMINS/MINERALS THERAPEUTIC TAB PO SCH (09:55)
[2017-02-14] MEDS: ASPIRIN 81 MG CHEW TAB CHEW SCH (09:55)
[2017-02-14] MEDS: ASCORBIC ACID 500 MG TAB PO SCH (09:55)
[2017-02-14] MEDS: CALCITRIOL 0.25 MCG CAP PO SCH (09:56)
[2017-02-14] MEDS: predniSONE 10 MG TAB PO SCH (09:57)
[2017-02-14] MEDS: prednisoLONE ACETATE 1% OPHT SUSP 5 ML BTL RIGHT EYE SCH (09:57)
[2017-02-14 10:51] LABS: BICARBONATE 30.8 MEQ/L (21.0-32.0); POTASSIUM 4.5 MEQ/L (3.5-5.1)
[2017-02-14 11:04] LABS: AUTOMATED NEUTROPHIL # 13.7 TH/MM3 (1.8-7.7); BASOPHIL % 0.1 % (0.0-2.0); EOSINOPHIL % 0.1 % (0.0-4.0); HEMATOCRIT 35.8 % (39.0-51.0); HEMO FLAGS DIFF FINAL; LYMPH % 5.5 % (9.0-44.0); LYMPHOCYTE # 0.9 TH/MM3 (1.0-4.8); MEAN CORPUSCULAR HEMOGLOBIN 23.5 PG (27.0-34.0); MONO % 10.3 % (0.0-8.0); PLATELET COUNT 209 TH/MM3 (150-450); RED BLOOD COUNT 4.52 MIL/MM3 (4.50-5.90); RED CELL DISTRIBUTION WIDTH 18.7 % (11.6-17.2); WHITE BLOOD COUNT 16.4 TH/MM3 (4.0-11.0)
[2017-02-14 11:05] LABS: MEAN CORPUSCULAR HGB CONC 29.8 % (32.0-36.0)
[2017-02-14] MEDS ORDERED: AZITHROMYCIN 250 MG TAB PO SCH (11:15)
--- NOTE | 2017-02-14 11:28 | HHI.PR ---
Subjective Remarks Follow-up acute on chronic systolic CHF/respiratory failure/suspected community- acquired pneumonia 02/12/17-patient seen and examined, reports some improvement of shortness of breath. Denies any chest pain. Blood glucose slightly up 02/13/17-patient seen and examined, denies any shortness of breath, no acute event overnight and stable. 02/14/17-patient seen and examined, stable, no chest pain or shortness of breath. Tolerating by mouth without any complication nausea vomiting Objective Vitals Vital Signs Date Time Temp Pulse Resp B/P (MAP) Pulse Ox O2 Delivery O2 Flow Rate FiO2 02/14/17 09:05 98 Nasal Cannula 3.00 02/14/17 08:00 97.7 53 17 152/68 (96) 97 02/14/17 04:00 98.2 67 96 02/14/17 00:00 98.1 73 20 134/63 (86) 93 02/13/17 21:49 92 Nasal Cannula 4.00 02/13/17 20:00 93 Nasal Cannula 4.00 02/13/17 20:00 97.9 91 19 154/69 (97) 92 02/13/17 16:00 97.8 72 16 172/77 (108) 96 02/13/17 12:00 98.5 75 16 131/60 (83) 93 I/O 02/13/17 02/13/17 02/13/17 02/14/17 02/14/17 02/14/17 07:00 15:00 23:00 07:00 15:00 23:00 Output Total 1950 ml 1600 ml 1250 ml Balance -1950 ml -1600 ml -1250 ml Output Urine Total 1950 ml 1600 ml 1250 ml # Voids 1 Result Diagram: 02/14/17 0920 02/14/17 0920 Imaging Last Impressions Chest X-Ray 02/11/17 0600 Signed Impressions: Service Date/Time: Saturday, February 11, 2017 03:00 - CONCLUSION: Stable chest x-ray with bilateral pleural effusions with associated volume loss and/or consolidation. Right effusion is larger than left. Ap Carrington MD Head CT 02/10/17 0000 Signed Impressions: Service Date/Time: Saturday, February 11, 2017 03:29 - CONCLUSION: Stable noncontrast head CT. No acute intracranial abnormality is identified. Ap Carrington MD Objective Remarks GENERAL: NAD SKIN: Warm and dry. HEAD: Normocephalic. EYES: No scleral icterus. No injection or drainage. NECK: Supple, trachea midline. No JVD or lymphadenopathy. CARDIOVASCULAR: Regular rate and rhythm without murmurs, gallops, or rubs. RESPIRATORY: Breath sounds equal bilaterally. No accessory muscle use. GASTROINTESTINAL: Abdomen soft, non-tender, nondistended. MUSCULOSKELETAL: No cyanosis, or edema. Chronic bilateral lower extremity venous stasis BACK: Nontender without obvious deformity. No CVA tenderness. Procedures none A/P Problem List: (1) Acute on chronic systolic (congestive) heart failure ICD Code: I50.23 - Acute on chronic systolic (congestive) heart failure Assessment and Plan 66 year-old man with Acute on chronic systolic heart failure Change Lasix to 20 mg Po daily 2-D echo with EF of 20-25% GRETCHEN inhibitor contraindicated secondary to acute on chronic kidney failure ACS ruled out per protocol with serial cardiac enzyme and EKGs Acute respiratory failure Resolved DuoNeb, keep oxygen saturation above 90% Perform walk test prior to discharge Acute hypoxia/hypoxemia: Patient will require home oxygen on discharge as other alternative measures were tried and were ineffective as patient fell modified walk test 02/14/17 Chronic venous stasis Continue with Lac-Hydrin lotion twice a day Acute COPD exacerbation s/p Solu-Medrol 20 mg every 12 hour and currently on prednisone 10 mg by mouth twice a day Continue with LABA, duo neb, current antibiotics Community-acquired pneumonia Currently on azithromycin and cefepime Urine antigens for pneumococcus and legionella negative Diabetes type 2 Good blood glucose readings Continue NPH twice a day as well as sliding scale insulin Atrial fibrillation Currently rate control on Xarelto and Coreg Hypertension Normotensive on Coreg Acute on chronic kidney disease stage III Improving, IV fluid hydration contraindicated due to acute on chronic CHF exacerbation Monitor BUN and creatinine and avoid all nephrotoxic drugs Hyperkalemia without EKG changes-resolved Status post treatment with emergently with insulin bicarbonate glucose and calcium Hypothyroidism Continue Levothyroxine Mood disorder Continue Quetiapine GERD - Pepcid History of DVT - Xarelto DVT GI prophylaxis - Teds SCDs - Xarelto - Pepcid Discharge Planning Likely discharge in Jayden Cueva MD Feb 14, 2017 11:28
[2017-02-14] MEDS ORDERED: ALPR.25 PO (11:46)
[2017-02-14] MEDS ORDERED: AZIT250T3 PO (11:46)
[2017-02-14] MEDS ORDERED: OXYC-395 PO (11:46)
[2017-02-14] MEDS ORDERED: FURO20TA PO (11:46)
[2017-02-14] MEDS ORDERED: POTA20TA5 PO (11:46)
[2017-02-14] MEDS ORDERED: MORP1TAB24 PO (11:46)
[2017-02-14] MEDS ORDERED: PRED10 PO (11:46)
--- NOTE | 2017-02-14 11:49 | HHI.DS ---
Discharge Summary Admission Date Feb 10, 2017 at 18:55 Discharge Date: Feb 14, 2017 Admitting Diagnosis respiratory failure, pneumonia, effusion, leukocytosis (1) Acute on chronic systolic (congestive) heart failure ICD Code: I50.23 - Acute on chronic systolic (congestive) heart failure Procedures none Brief History - From Admission 66-year-old brought to the emergency department via EMS for shortness of breath. According to EMS the patient was at the detention earlier today when he became short of breath. According to chart the patient apparently was administered Xanax at that time for possible anxiety and was reevaluated later. When the patient was reevaluated later was noted that his oxygen saturation was in the 40s. EMS states when they arrived the patient was breathing, agonal , with O2 sat in the 40s. The patient was brought to the emergency department while being bagged, they were unable to obtain IV access. He was immediately intubated by ED attending that also placed IO for an access and later IJ. CBC/BMP: 02/14/17 0920 02/14/17 0920 Significant Findings Laboratory Tests Test 02/12/17 05:35 02/13/17 06:00 02/14/17 09:20 Blood Urea Nitrogen 44 MG/DL (7-18) 54 MG/DL (7-18) 55 MG/DL (7-18) Creatinine 1.64 MG/DL (0.60-1.30) 1.54 MG/DL (0.60-1.30) 1.41 MG/DL (0.60-1.30) Random Glucose 200 MG/DL (74-106) 112 MG/DL (74-106) 56 MG/DL (74-106) Calcium Level 7.8 MG/DL (8.5-10.1) 8.0 MG/DL (8.5-10.1) 8.2 MG/DL (8.5-10.1) Chloride Level 111 MEQ/L (98-107) 110 MEQ/L (98-107) 108 MEQ/L (98-107) Estimat Glomerular Filtration Rate 42 ML/MIN (>89) 45 ML/MIN (>89) 50 ML/MIN (>89) Troponin I 0.54 NG/ML (0.02-0.05) B-Type Natriuretic Peptide 1548 PG/ML (0-100) White Blood Count 14.7 TH/MM3 (4.0-11.0) 16.4 TH/MM3 (4.0-11.0) Red Blood Count 3.86 MIL/MM3 (4.50-5.90) Hemoglobin 9.2 GM/DL (13.0-17.0) 10.7 GM/DL (13.0-17.0) Hematocrit 29.3 % (39.0-51.0) 35.8 % (39.0-51.0) Mean Corpuscular Volume 75.9 FL (80.0-100.0) 79.0 FL (80.0-100.0) Mean Corpuscular Hemoglobin 23.8 PG (27.0-34.0) 23.5 PG (27.0-34.0) Mean Corpuscular Hemoglobin Concent 31.3 % (32.0-36.0) 29.8 % (32.0-36.0) Red Cell Distribution Width 18.3 % (11.6-17.2) 18.7 % (11.6-17.2) Neutrophils (%) (Auto) 89.4 % (16.0-70.0) 84.0 % (16.0-70.0) Lymphocytes (%) (Auto) 3.6 % (9.0-44.0) 5.5 % (9.0-44.0) Neutrophils # (Auto) 13.2 TH/MM3 (1.8-7.7) 13.7 TH/MM3 (1.8-7.7) Lymphocytes # (Auto) 0.5 TH/MM3 (1.0-4.8) 0.9 TH/MM3 (1.0-4.8) Monocytes # (Auto) 1.0 TH/MM3 (0-0.9) 1.7 TH/MM3 (0-0.9) Sodium Level 146 MEQ/L (136-145) 146 MEQ/L (136-145) Monocytes (%) (Auto) 10.3 % (0.0-8.0) Imaging Last Impressions Chest X-Ray 02/11/17 0600 Signed Impressions: Service Date/Time: Saturday, February 11, 2017 03:00 - CONCLUSION: Stable chest x-ray with bilateral pleural effusions with associated volume loss and/or consolidation. Right effusion is larger than left. Ap Carrington MD Head CT 02/10/17 0000 Signed Impressions: Service Date/Time: Saturday, February 11, 2017 03:29 - CONCLUSION: Stable noncontrast head CT. No acute intracranial abnormality is identified. Ap Carrington MD PE at Discharge GENERAL: NAD SKIN: Warm and dry. HEAD: Normocephalic. EYES: No scleral icterus. No injection or drainage. NECK: Supple, trachea midline. No JVD or lymphadenopathy. CARDIOVASCULAR: Regular rate and rhythm without murmurs, gallops, or rubs. RESPIRATORY: Breath sounds equal bilaterally. No accessory muscle use. GASTROINTESTINAL: Abdomen soft, non-tender, nondistended. MUSCULOSKELETAL: No cyanosis, or edema. Chronic bilateral lower extremity venous stasis BACK: Nontender without obvious deformity. No CVA tenderness. Hospital Course Acute on chronic systolic heart failure Treated with IV Lasix which was subsequently switched to by mouth Lasix to 20 mg Po daily 2-D echo with EF of 20-25% GRETCHEN inhibitor contraindicated secondary to acute on chronic kidney failure ACS ruled out per protocol with serial cardiac enzyme and EKGs Acute respiratory failure Initially admitted to [facility] where patient was intubated then extubated Resolved DuoNeb, keep oxygen saturation above 90% Chronic venous stasis Continue with Lac-Hydrin lotion twice a day Acute COPD exacerbation s/p Solu-Medrol 20 mg every 12 hour and currently on prednisone 10 mg by mouth twice a day Continue with LABA, duo neb, current antibiotics Community-acquired pneumonia Currently on azithromycin Urine antigens for pneumococcus and legionella negative Diabetes type 2 Good blood glucose readings Continue NPH twice a day as well as sliding scale insulin Atrial fibrillation Currently rate control on Xarelto and Coreg Hypertension Normotensive on Coreg Acute on chronic kidney disease stage III Improving, IV fluid hydration contraindicated due to acute on chronic CHF exacerbation Monitor BUN and creatinine and avoid all nephrotoxic drugs Hyperkalemia without EKG changes-resolved Status post treatment with emergently with insulin bicarbonate glucose and calcium Hypothyroidism Continue Levothyroxine Mood disorder Continue Quetiapine GERD - Pepcid History of DVT - Xarelto DVT GI prophylaxis - Teds SCDs - Xarelto - Pepcid Pt Condition on Discharge: Stable Discharge Disposition: Discharge to SNF Discharge Time: > 30 minutes Discharge Instructions DIET: Follow Instructions for: Diabetic Diet Activities you can perform: Regular-No Restrictions Follow up Referrals: PCP Follow-up - 2-3 Days New Medications: Aspirin DR (Aspirin EC) 81 Mg Tabdr 81 MG PO DAILY for Prevent Blood Clot, #30 TAB 0 Refills Oxygen (O2) (Oxygen (O2)) Inha LITER GEORGE.CANULA CONTINUOUS for Prevent Hypoxemia, #2 Oxygen Concentrator Portable Gaseous 2 L/min via Nasal Canula Continuous For 99 months Azithromycin (Azithromycin) 250 Mg Tab 250 MG PO DAILY for Infection, #5 TAB Furosemide (Furosemide) 20 Mg Tab 20 MG PO DAILY for Prevent Heart Failure, #30 TAB Potassium Chloride Microencaps (Potassium Chloride Microencaps) 20 Meq Tab 20 MEQ PO DAILY for Electrolyte Replacement, #30 TAB Prednisone (Prednisone) 10 Mg Tab 10 MG PO BID for Infection, #6 TAB Continued Medications: Albuterol Neb (Albuterol Neb) 2.5 Mg/3 Ml Neb 2.5 MG NEB Q2HR PRN for SHORTNESS OF BREATH, #1 NEBULE 0 Refills Alprazolam (Xanax) 0.25 Mg Tab 0.25 MG PO Q6H PRN for ANXIETY, #10 TAB 0 Refills (This prescription has been renewed) Ascorbic Acid (Vitamin C) 250 Mg Tab 250 MG PO BID for Nutritional Supplement, TAB 0 Refills Atorvastatin (Lipitor) 40 Mg Tab 40 MG PO HS for Cholesterol Management, #30 TAB 0 Refills Calcitriol (Calcitriol) 0.25 Mcg Cap 0.25 MCG PO MoWeFr for Calcium Supplement, #30 CAP 0 Refills Take 1 capsule (0.25mcg) daily on Friday,Friday and Friday Carbamide Peroxide Otic Drops (Debrox Otic Drops) 6.5% Soln 5 DROP EACH EAR MONTHLY, #1 BOTTLE 0 Refills Carvedilol (Coreg) 3.125 Mg Tab 3.125 MG PO BID for CHF, #60 TAB 0 Refills Cholecalciferol (Vitamin D3) 3,000 Unit Tab 3000 UNITS PO DAILY for Nutritional Supplement, #1 BOTTLE 0 Refills Dextrose Gel (Glucose Gel) 40 % Gel 1 TUBE PO ONCE PRN for LOW BLOOD SUGAR, #1 TUBE 0 Refills Ferrous Sulfate (Ferrous Sulfate) 325 Mg (65 Mg Iron) Tablet 325 MG PO DAILY for Nutritional Supplement, #30 TAB 0 Refills Glucagon (Rdna) Inj Kit (Glucagon Emergency Inj Kit) 1 Mg Kit 1 MG IM ONCE PRN for Blood Sugar Management, #1 KIT 0 Refills Hydroxyzine HCl (Hydroxyzine HCl) 25 Mg Tab 25 MG PO Q6HR PRN for ITCHING, TAB 0 Refills Insulin Degludec Inj (Tresiba Flextouch Pen Inj) 600 unit/3 ML Pen 95 UNITS SQ HS for Blood Sugar Management, #9 ML 0 Refills Insulin NPH Isophane-Reg (Human) 70-30 Inj (Humulin 70-30 Inj) 1,000 Unit/10 Ml Vial 70 UNITS SQ BID Ipratropium-Albuterol Neb (Duoneb) 0.5-2.5 Mg/3 Ml Neb 3 ML NEB Q6HR PRN for SHORTNESS OF BREATH, #30 NEBULE 0 Refills Lactobacillus (Acidophilus Probiotic) 100 Mg (1 Billion Cell) Cap 1 CAP PO BID Levothyroxine (Levothyroxine) 137 Mcg Tab 137 MCG PO DAILY for Thyroid, #30 TAB 0 Refills Lisinopril (Lisinopril) 2.5 Mg Tab 2.5 MG PO DAILY, #30 TAB 0 Refills Melatonin (Melatonin) 3 Mg Tab 3 MG PO HS for Insomnia Morphine ER (Morphine ER) 15 Mg Tab 15 MG PO BID for Pain Management, #10 TAB 0 Refills (This prescription has been renewed) Multiple Vitamins W/ Minerals (Multiple Vitamin/Minerals) 1 Tab Tab 1 TAB PO DAILY for Nutritional Supplement Nitroglycerin SL (Nitroglycerin SL) 0.4 Mg Subl 0.4 MG SL DIRECTED PRN for CHEST PAIN, #100 TAB.SL 0 Refills ONE TABLET UNDER THE TONGUE NEEDED FOR CHEST PAIN, MAY REPEAT EVERY FIVE MINUTES FOR A TOTAL OF 3 DOSES OR CALL 911 IF NO RELIEF Ondansetron (Zofran) 4 Mg Tab 4 MG PO Q6HR PRN for NAUSEA OR VOMITING, TAB 0 Refills Oxycodone (Oxycodone) 10 Mg Tab 10 MG PO Q4H PRN for PAIN, #10 TAB 0 Refills (This prescription has been renewed ) Prednisolone Acetate Opth 1% (Pred Forte Opth 1%) 1% Susp 1 DROP RIGHT EYE BID for Inflammation, #1 BOTTLE 0 Refills Quetiapine (Seroquel) 25 Mg Tab 25 MG PO HS, #30 TAB 0 Refills Rivaroxaban (Xarelto) 20 Mg Tab 20 MG PO DAILY for Blood Clot Prevention, TAB 0 Refills Simethicone (Gas-X) 125 Mg Tab.chew 125 MG PO DAILY Jayden Mckeon MD Feb 14, 2017 11:49
[2017-02-14] MEDS ORDERED: ASPI81TA11 PO (11:51)
[2017-02-14 12:00] VITALS: BP 170/65; PULSE 82; RESP 20; TEMP 98.6; O2SAT 95
[2017-02-14] MEDS ORDERED: OXYGEN NAS.CANULA (12:43)
[2017-02-14] MEDS ORDERED: SOD PHOSPHATE/SOD BIPHOSPHATE (ADULT) ENEMA 133ML PR ONE (14:30)
[2017-02-14] MEDS ORDERED: RESP: ALBUTEROL 2.5 MG/IPRATROPIUM 0.5 MG NEB (SCH) INH (16:00)
[2017-02-15] MEDS ORDERED: POTASSIUM CHLORIDE 20 MEQ CONTROLLED RELEASE TAB PO SCH (09:00)
[2017-02-15] MEDS ORDERED: FUROSEMIDE 20 MG TAB PO SCH (09:00)
== END 2017-02-14 15:55 | DRG 208 ==
LOC: NEPC 17:10 → NEDA 18:55 → NEDH 23:57 → N03B 02-11 06:01 → N05A 02-12 15:55
PROVIDERS: ADMIT Hospitalist; ATTEND Hospitalist
PROC: 5A1935Z Respiratory Ventilation, Less than 24 Consecutive Hours (ICD-10-PCS; principal; 2017-02-10)
PROC: 0BH17EZ Insertion of Endotracheal Airway into Trachea, Via Natural or Artificial Opening (ICD-10-PCS; 2017-02-10)
PROC: 05HM33Z Insertion of Infusion Device into Right Internal Jugular Vein, Percutaneous Approach (ICD-10-PCS; 2017-02-10)
DX: J96.01 Acute respiratory failure with hypoxia (principal); I50.23 Acute on chronic systolic (congestive) heart failure; N17.9 Acute kidney failure, unspecified; J44.0 Chronic obstructive pulmonary disease with (acute) lower respiratory infection; J18.9 Pneumonia, unspecified organism; J44.1 Chronic obstructive pulmonary disease with (acute) exacerbation; I48.0 Paroxysmal atrial fibrillation; I12.9 Hypertensive chronic kidney disease with stage 1 through stage 4 chronic kidney disease, or unspecified chronic kidney disease; N18.3 Chronic kidney disease, stage 3 (moderate); E66.01 Morbid (severe) obesity due to excess calories; Z68.34 Body mass index [BMI] 34.0-34.9, adult; I25.10 Atherosclerotic heart disease of native coronary artery without angina pectoris; E03.9 Hypothyroidism, unspecified; K21.9 Gastro-esophageal reflux disease without esophagitis; F39 Unspecified mood [affective] disorder; E11.9 Type 2 diabetes mellitus without complications; Z86.718 Personal history of other venous thrombosis and embolism; Z79.02 Long term (current) use of antithrombotics/antiplatelets; Z79.4 Long term (current) use of insulin; Z87.891 Personal history of nicotine dependence; I87.8 Other specified disorders of veins; E87.5 Hyperkalemia
CPT/HCPCS: 31500; 36556; 36600; 70450; 71010; 76937; 80048; 80053; 81001; 82550; 82552; 82805; 82948; 83605; 83735; 83880; 84100; 84132; 84484; 85025; 85610; 85730; 87040; 87086; 87449; 87641; 93005; 93306; 94002; 94003; 94620; 94640; 94664; 96365; J0330; J0360; J0456; J0610; J0692; J1815; J1940; J2270; J2920; J7030; J7050; J7512; J7611

== ENCOUNTER 2017-03-12 20:23 | Inpatient (IN) | payer MEDICARE, OTHER ==
[2017-03-12] VITALS (14 sets, daily range): BP systolic 92–240; BP diastolic 50–182; PULSE 51–116; RESP 16–40; TEMP 98.5; O2SAT 94–100
[~2017-03-12] VITALS: Ht 162.6 cm; Wt 92.9 kg
[~2017-03-12 20:23] MED LIST changes: +ACID100C PO; -ACIDCAP17 PO; +ALBU0.08 NEB; +ALPR.25 PO; +ASPI81TA11 PO; -ATOR40TA PO; +AZIT250T3 PO; -BUME1TAB PO; +CALC0.25 PO; +CARB6.5S5 EACH EAR; -D32000TA PO; -FERR324T4 PO; +FERR325T8 PO; +FURO20TA PO; +GLUC1KIT IM; +GLUC40GE PO; +HUMU70IN SQ; +HYDR-3133 PO; +INSU1INJ13 SQ; +IPRASOL NEB; -LANTUS2P SQ; +LEVO137T2 PO; -LEVO150T7 PO; +LIPI40TA PO; +LISI2.5T3 PO; -LISI2.5T55 PO; +MELA0.02 PO; -MELA3TAB PO; -METO2.5 PO; +MORP1TAB24 PO; +MULT1TAB39 PO; +NITR1SUB3 SL; +OXYC-395 PO; -OXYC15TA55 PO; +OXYGEN NAS.CANULA; +POTA20TA5 PO; -PRED1%O RIGHT EYE; +PRED10 PO; +PRED1SUS RIGHT EYE; -PRIL20CA PO; -RIVA20 PO; +SIME125T PO; +VITA250T3 PO; +VITA3000 PO; +XARE20TA PO; +ZOFR4TAB PO
[2017-03-12] MEDS ORDERED: ETOMIDATE 20 MG/10 ML VIAL ONE (20:28)
[2017-03-12] MEDS ORDERED: SUCCINYLCHOLINE CHLORIDE 200 MG/10 ML VIAL ONE ×2 (20:28→20:30)
[2017-03-12] MEDS ORDERED: PROPOFOL 1000 MG/100 ML INJ 100 ML ONE (20:58)
[2017-03-12] MEDS ORDERED: SODIUM CHLORIDE 0.9% FLUSH 10 ML FLUSH IVF PRN (21:15)
--- NOTE | 2017-03-12 21:19 | PD ---
HPI Chief Complaint: Respiratory Distress Time Seen by Provider: 21:04 Travel History International Travel<30 days: No Contact w/Intl Traveler<30days: No Traveled to known affect area: No History of Present Illness HPI BROUGHT IN BY EMS FROM [facility] DUE TO RESP DISTRESS, UNABLE TO PLACE IV ON FIELD, ATTEMPTED BIPAP INITIALLY EN ROUTE BUT PATIENT STARTED TO BECOME MORE AND MORE OBTUNDED. NO HX OBTAINED FROM PATIENT DUE TO SEVERITY OF SOB. REVIEW OF [place] PAPERWORK DID NOT REVEAL ANY DNR ORDERS AND APPARENTLY H/O COPD/CHF/ KIDNEY DZ PFSH Past Medical History Anemia: Yes Arthritis: No Asthma: No Atrial Fibrillation: Yes Autoimmune Disease: No Blood Disorders: No Anxiety: Yes Depression: Yes Heart Rhythm Problems: No Cancer: No Cardiac Catheterization: Yes Cardiovascular Problems: Yes High Cholesterol: Yes Chemotherapy: No Chest Pain: No Congestive Heart Failure: Yes COPD: Yes Cerebrovascular Accident: No Dementia: Yes Diabetes: Yes Diminished Hearing: No Diverticulitis: Yes Deep Vein Thrombosis: Yes Endocrine: Yes (DIABETIC) GERD: Yes Glaucoma: No Genitourinary: Yes Headaches: Yes Hepatitis: No Hiatal Hernia: No Hypertension: Yes Immune Disorder: No Implanted Vascular Access Dvce: No Kidney Stones: No Musculoskeletal: Yes Neurologic: No Psychiatric: Yes (PSYCHOSIS) Reproductive: No Respiratory: No Integumentary: Yes (PRURITIC DISORDER) Migraines: No Myocardial Infarction: Yes (STEMI ) Pneumonia: Yes Radiation Therapy: No Renal Failure: Yes Seizures: No Sickle Cell Disease: No Sleep Apnea: No Thyroid Disease: Yes (HYPOTHYROIDSIM) Ulcer: No Past Surgical History Abdominal Surgery: No AICD: No Appendectomy: No Arteriovenous Shunt: No Cardiac Surgery: Yes (Triple bypass) Cholecystectomy: No Coronary Artery Bypass Graft: Yes (TRIPLE BYPASS 2007) Coronary Stent: Yes Ear Surgery: No Endocrine Surgery: No Eye Surgery: Yes (cataracts bilateral) Genitourinary Surgery: No Gynecologic Surgery: No Insulin Pump: No Joint Replacement: No Neurologic Surgery: No Oral Surgery: No Pacemaker: No Thoracic Surgery: No Other Surgery: Yes (AMPUTION RT. GREAT TOE AND LITTLE TOE,) Social History Alcohol Use: No Tobacco Use: No (QUIT ) Substance Use: No Allergies-Medications (Allergen,Severity, Reaction): Coded Allergies: acetaminophen (Unverified Allergy, Severe, "LIVER PROBLEMS", 01/28/17) diatrizoate meglumine (Unverified Allergy, Severe, Anaphylaxis, 01/28/17) gadobenic acid (Unverified Allergy, Severe, Anaphylaxis, 01/28/17) gadodiamide (Unverified Allergy, Severe, Anaphylaxis, 01/28/17) gadoteridol (Unverified Allergy, Severe, Anaphylaxis, 01/28/17) iodixanol (Unverified Allergy, Severe, Anaphylaxis, 01/28/17) iohexol (Unverified Allergy, Severe, Anaphylaxis, 01/28/17) penicillin G (Unverified Allergy, Severe, "HOT THROAT", 01/28/17) Uncoded Allergies: RADIOISOTOPES (Allergy, Severe, 09/27/13) UNKONWN RXN, LISTED ON PATIENT PAPERWORK FROM [facility]. Reported Meds & Prescriptions Reported Meds & Active Scripts Active Oxygen (O2) (Miscellaneous Medication) Inha Liter GEORGE.CANULA CONTINUOUS Oxygen Concentrator Portable Gaseous 2 L/min via Nasal Canula Continuous For 99 months Aspirin EC (Aspirin) 81 Mg Tabdr 81 Mg PO DAILY Prednisone 10 Mg Tab 10 Mg PO BID Furosemide 20 Mg Tab 20 Mg PO DAILY Potassium Chloride Microencaps 20 Meq Tab 20 Meq PO DAILY Azithromycin 250 Mg Tab 250 Mg PO DAILY Xanax (Alprazolam) 0.25 Mg Tab 0.25 Mg PO Q6H PRN Oxycodone (Oxycodone HCl) 10 Mg Tab 10 Mg PO Q4H PRN Morphine ER (Morphine Sulfate) 15 Mg Tab 15 Mg PO BID Reported Zofran (Ondansetron HCl) 4 Mg Tab 4 Mg PO Q6HR PRN Nitroglycerin SL (Nitroglycerin) 0.4 Mg Subl 0.4 Mg SL DIRECTED PRN ONE TABLET UNDER THE TONGUE NEEDED FOR CHEST PAIN, MAY REPEAT EVERY FIVE MINUTES FOR A TOTAL OF 3 DOSES OR CALL 911 IF NO RELIEF Duoneb (Ipratropium-Albuterol Neb) 0.5-2.5 Mg/3 Ml Neb 3 Ml NEB Q6HR PRN Hydroxyzine HCl 25 Mg Tab 25 Mg PO Q6HR PRN Glucose Gel (Dextrose) 40 % Gel 1 Tube PO ONCE PRN Glucagon Emergency Inj Kit (Glucagon (Rdna) Inj Kit) 1 Mg Kit 1 Mg IM ONCE PRN Albuterol Neb (Albuterol Sulfate) 2.5 Mg/3 Ml Neb 2.5 Mg NEB Q2HR PRN Vitamin C (Ascorbic Acid) 250 Mg Tab 250 Mg PO BID Pred Forte Opth 1% (Prednisolone Acetate Opth 1%) 1% Susp 1 Drop RIGHT EYE BID Acidophilus Probiotic (Lactobacillus) 100 Mg (1 Billion Cell) Cap 1 Cap PO BID Humulin 70-30 Inj (Insulin NPH Isophane-Reg (Human) 70-30 Inj) 1,000 Unit/10 Ml Vial 70 Units SQ BID Coreg (Carvedilol) 3.125 Mg Tab 3.125 Mg PO BID Xarelto (Rivaroxaban) 20 Mg Tab 20 Mg PO DAILY Tresiba Flextouch Pen Inj (Insulin Degludec Inj) 600 unit/3 ML Pen 95 Units SQ HS Seroquel (Quetiapine Fumarate) 25 Mg Tab 25 Mg PO HS Multiple Vitamin/Minerals (Multiple Vitamins W/ Minerals) 1 Tab Tab 1 Tab PO DAILY Melatonin 3 Mg Tab 3 Mg PO HS Lisinopril 2.5 Mg Tab 2.5 Mg PO DAILY Levothyroxine (Levothyroxine Sodium) 137 Mcg Tab 137 Mcg PO DAILY Ferrous Sulfate 325 Mg (65 Mg Iron) Tablet 325 Mg PO DAILY Humulin 70-30 Inj (Insulin NPH Isophane-Reg (Human) 70-30 Inj) 1,000 Unit/10 Ml Vial 30 Units SQ IN THE EVENING Before Dinner Gas-X (Simethicone) 125 Mg Tab.chew 125 Mg PO DAILY Debrox Otic Drops (Carbamide Peroxide Otic Drops) 6.5% Soln 5 Drop EACH EAR MONTHLY Vitamin D3 (Cholecalciferol) 3,000 Unit Tab 3,000 Units PO DAILY Calcitriol 0.25 Mcg Cap 0.25 Mcg PO MOWEFR Take 1 capsule (0.25mcg) daily on Friday,Friday and Friday Lipitor (Atorvastatin Calcium) 40 Mg Tab 40 Mg PO HS Review of Systems ROS Limitations: Clinical Condition, Intubated Except as stated in HPI: all other systems reviewed are Neg Cardiovascular: Positive: Tachycardia, Diaphoresis Respiratory: Positive: Shortness of Breath Physical Exam Exam Limitations: Altered Mental Status Narrative GENERAL: SKIN: COOL , DIAPHORETIC HEAD: Atraumatic. Normocephalic. EYES: Pupils equal and round. No scleral icterus. No injection or drainage. ENT: No nasal bleeding or discharge. Mucous membranes pink and moist. NECK: Trachea midline. No JVD. CARDIOVASCULAR: TACHYCARDIC, REGULAR, RESPIRATORY: SUPRASTERNAL ACCESSORY RETRACTIONS, SHALLOW BREATHING, TACHYPNEIC, 80% PULSE OX, GASTROINTESTINAL: Abdomen soft, non-tender, nondistended. OBESE MUSCULOSKELETAL: Extremities cyanoTIC, or edema. No obvious deformities. NEUROLOGICAL: GCS 10 AND BECOMING MORE AND MORE OBTUNDED, Data Data Last Documented VS Vital Signs Date Time Temp Pulse Resp B/P (MAP) Pulse Ox O2 Delivery O2 Flow Rate FiO2 03/12/17 22:26 100 50 03/12/17 22:22 16 Ventilator 03/12/17 22:11 63 92/50 (64) 03/12/17 22:00 98.5 Orders Orders Etomidate Inj (Amidate Inj) (03/12/17 20:28) Succinylcholine Inj (Quelicin Inj) (03/12/17 20:28) Succinylcholine Inj (Quelicin Inj) (03/12/17 20:30) Propofol 1000 Mg/100 Ml Inj (Diprivan 10 (03/12/17 20:58) Chest, Single Ap (03/12/17 ) Complete Blood Count With Diff (03/12/17 21:04) Comprehensive Metabolic Panel (03/12/17 21:04) B-Type Natriuretic Peptide (03/12/17 21:04) Act Partial Throm Time (Ptt) (03/12/17 21:04) Prothrombin Time / Inr (Pt) (03/12/17 21:04) Ckmb (Isoenzyme) Profile (03/12/17 21:04) Troponin I (03/12/17 21:04) Urinalysis - C+S If Indicated (03/12/17 21:04) Influenzae A/B Antigen (03/12/17 21:04) Blood Culture (03/12/17 21:04) Iv Access Insert/Monitor (03/12/17 21:04) Electrocardiogram (03/12/17 21:04) Ecg Monitoring (03/12/17 21:04) Oximetry (03/12/17 21:04) Oxygen Administration (03/12/17 21:04) Urinary Catheter Insert/Apply (03/12/17 21:04) Arterial Blood Gas (Abg) (03/12/17 21:04) Ng Gastric Tube Insert/Monitor (03/12/17 21:04) Sodium Chloride 0.9% Flush (Ns Flush) (03/12/17 21:15) Etomidate Inj (Amidate Inj) (03/12/17 21:45) Succinylcholine Inj (Quelicin Inj) (03/12/17 21:45) Propofol 1000 Mg/100 Ml Inj (Diprivan 10 (03/12/17 21:45) CKMB (03/12/17 21:22) CKMB% (03/12/17 21:22) Furosemide Inj (Lasix Inj) (03/12/17 22:30) Admit Order (Ed Use Only) (03/12/17 22:41) Labs Laboratory Tests Test 03/12/17 21:20 03/12/17 21:22 Blood Gas Puncture Site LT RADIAL Blood Gas Patient Temperature 98.6 Blood Gas HCO3 29 mmol/L Blood Gas Base Excess 3.3 mmol/L Blood Gas Oxygen Saturation 98 % Arterial Blood pH 7.29 Arterial Blood Partial Pressure CO2 63 mmHg Arterial Blood Partial Pressure O2 371 mmHG Arterial Blood Oxygen Content 15.3 Vol % Arterial Blood Carboxyhemoglobin 1.4 % Arterial Blood Methemoglobin 0.4 % Blood Gas Hemoglobin 10.4 G/DL Oxygen Delivery Device VENT Blood Gas Ventilator Setting Blood Gas Inspired Oxygen 100 % White Blood Count 15.7 TH/MM3 Red Blood Count 4.35 MIL/MM3 Hemoglobin 10.7 GM/DL Hematocrit 34.3 % Mean Corpuscular Volume 78.9 FL Mean Corpuscular Hemoglobin 24.5 PG Mean Corpuscular Hemoglobin Concent 31.0 % Red Cell Distribution Width 20.9 % Platelet Count 220 TH/MM3 Mean Platelet Volume 8.6 FL Neutrophils (%) (Auto) 90.0 % Lymphocytes (%) (Auto) 3.0 % Monocytes (%) (Auto) 6.0 % Eosinophils (%) (Auto) 0.6 % Basophils (%) (Auto) 0.4 % Neutrophils # (Auto) 14.2 TH/MM3 Lymphocytes # (Auto) 0.5 TH/MM3 Monocytes # (Auto) 0.9 TH/MM3 Eosinophils # (Auto) 0.1 TH/MM3 Basophils # (Auto) 0.1 TH/MM3 CBC Comment DIFF FINAL Differential Comment Prothrombin Time 15.0 SEC Prothromb Time International Ratio 1.3 RATIO Activated Partial Thromboplast Time 27.2 SEC Urine Color YELLOW Urine Turbidity HAZY Urine pH 6.5 Urine Specific [place] 1.017 Urine Protein 300 mg/dL Urine Glucose (UA) NEG mg/dL Urine Ketones NEG mg/dL Urine Occult Blood NEG Urine Nitrite NEG Urine Bilirubin NEG Urine Urobilinogen LESS THAN 2.0 MG/DL Urine Leukocyte Esterase NEG Urine RBC 11 /hpf Urine WBC 6 /hpf Urine Squamous Epithelial Cells 1 /hpf Urine Amorphous Sediment RARE Urine Hyaline Casts 19 /lpf Urine Mucus FEW /lpf Microscopic Urinalysis Comment CULT NOT INDICATED Blood Urea Nitrogen 29 MG/DL Creatinine 1.63 MG/DL Random Glucose 249 MG/DL Total Protein 6.7 GM/DL Albumin 2.6 GM/DL Calcium Level 7.7 MG/DL Alkaline Phosphatase 145 U/L Aspartate Amino Transf (AST/SGOT) 39 U/L Alanine Aminotransferase (ALT/SGPT) 48 U/L Total Bilirubin 0.5 MG/DL Sodium Level 140 MEQ/L Potassium Level 5.3 MEQ/L Chloride Level 103 MEQ/L Carbon Dioxide Level 30.4 MEQ/L Anion Gap 7 MEQ/L Estimat Glomerular Filtration Rate 42 ML/MIN Total Creatine Kinase 102 U/L Creatine Kinase MB 4.0 NG/ML Troponin I 0.15 NG/ML B-Type Natriuretic Peptide 853 PG/ML MDM Medical Decision Making Medical Screen Exam Complete: Yes Emergency Medical Condition: Yes Medical Record Reviewed: Yes Interpretation(s) AFLUTTER WITH CVR, ST DEPRESSION INFERIOLATERALLY, NO STEMI PATTERN NOTED Differential Diagnosis PULMONARY EDEMA V COPD V PNA V HYPOXEMIA Narrative Course PATIENT PRESENT WITH SEVERE RESP DISTRESS, HYPERCARBIC FAILURE, PATIENT WAS INTUBATED SOON AN IV ESTABLISHED BY RN, HOWEVER SHORTLY AFTER RSI PATIENT' S IV BECAME UNUSABLE, AT THIS POINT CENTRAL LINE PLACEMENT PROCESS INITIATED SHORTLY AFTER INTUBATION WHILE PATIENT WAS STILL UNDER SEDATION. PT FOUND IN PULM EDEMA WELL, DIURETICS ORDERED HOWEVER NOT AGGRESSIVELY DUE TO EPISODE OF HYPOTENSION. HYPOTENSION LIKELY DUE TO DIPRIVAN HOWEVER PATIENT WAS IN FLORID PULM EDEMA WITH CARDIAC STRAIN AND NONSTEMI. PT CARE TURNED OVER TO HEEL SLICKER DR MEEK Critical Care Narrative CRITICAL CARE NOTE: With evaluation of the patient, labs, EKG, receipt of radiologic studies, administration of medications, reevaluation the patient and discussion of the patient with the admitting physicians, the total critical care time was [90] minutes. Time to perform other separately billable procedures was not included in the critical care time. Procedures Procedure Narrative The patient was put in optimal position for the procedure. Rapid sequence intubation was initiated by me using [20] milligrams of etomidate IV and [100] milligrams of [SUCCYNILCHOLINE-] IV. The patient was intubated with a [8-0] cuffed endotracheal tube (24 AT THE LIP). Tube placement was confirmed by visualization of the tube and balloon passing through the cords, capnometry and subsequent chest x-ray. Breath sounds were equal and well aerated bilaterally postintubation. No breath sounds over stomach. Patient tolerated procedure well. After the risks and benefits were discussed the following procedure was performed: CENTRAL VENOUS LINE: The site was prepped with Betadine and sterilely draped. It was infiltrated with 1% lidocaine plain. The deep vein was cannulated using normal Seldinger technique. A central line was placed in the [RIGHT SUBCLAVIAN ] site and secured with simple interrupted suture. The site was sterilely dressed. The patient tolerated the procedure well. Physician Communication Physician Communication D/W HEEL SLICKER DR MEEK Diagnosis Primary Impression: Respiratory failure requiring intubation Additional Impressions: Pulmonary edema Qualified Codes: J81.0 - Acute pulmonary edema Non-STEMI (non-ST elevated myocardial infarction) Admitting Information Admitting Physician Requests: it Brendon Peña MD Mar 12, 2017 21:19
[2017-03-12 21:38] LABS: BLOOD GAS BASE EXCESS 3.3 mmol/L (-2-2); BLOOD GAS CARBOXYHEMOGLOBIN 1.4 % (0-4); BLOOD GAS HCO3 29 mmol/L (22-26); BLOOD GAS METHEMOGLOBIN 0.4 % (0-2); BLOOD GAS O2 HGB SATURATION 98 % (90-100); BLOOD GAS OXYGEN CONTENT 15.3 Vol % (12.0-20.0); BLOOD GAS PCO2 63 mmHg (38-42); BLOOD GAS PO2 371 mmHG (61-120); BLOOD GAS TOTAL HGB 10.4 G/DL (12.0-16.0); TEMP CORR TO 98.6
[2017-03-12 21:39] LABS: CRITICAL VALUE YES; OXYGEN DEVICE VENT
[2017-03-12 21:40] LABS: DRAW SITE LT RADIAL; FIO2 100 %; NUMBER OF ARTERIAL PUNCTURES 1; STAT YES; ULNAR PULSE PRESENT
[2017-03-12 21:45] LABS: BLOOD, URINE NEG (NEG); COMMENT (UR) CULT NOT INDICATED; CULTURE IF INDICATED CULT NOT INDICATED; GLUCOSE,URINE NEG (NEG); HYALINE CAST, URINE 19 /lpf (RARE); KETONE, URINE NEG (NEG); MUCUS URINE FEW /lpf (OCC); NITRITE,URINE NEG (NEG); PH, URINE 6.5 (5.0-8.5); SQUAMOUS EPITHELIAL CELL URINE 1 /hpf (0-5); URINE COLOR YELLOW (YELLW/STRAW)
[2017-03-12] MEDS ORDERED: SUCCINYLCHOLINE CHLORIDE 200 MG/10 ML VIAL IV PUSH ONE (21:45)
[2017-03-12] MEDS ORDERED: PROPOFOL 1000 MG/100 ML INJ 100 ML IV PRN (21:45)
[2017-03-12] MEDS ORDERED: ETOMIDATE 20 MG/10 ML VIAL IVP ONE (21:45)
[2017-03-12 21:46] LABS: AUTOMATED NEUTROPHIL # 14.2 TH/MM3 (1.8-7.7); BASOPHIL # 0.1 TH/MM3 (0-0.2); BASOPHIL % 0.4 % (0.0-2.0); EOSINOPHIL # 0.1 TH/MM3 (0-0.4); EOSINOPHIL % 0.6 % (0.0-4.0); HEMATOCRIT 34.3 % (39.0-51.0); HEMO FLAGS DIFF FINAL; LYMPHOCYTE # 0.5 TH/MM3 (1.0-4.8); MEAN CELL VOLUME 78.9 FL (80.0-100.0); MEAN CORPUSCULAR HEMOGLOBIN 24.5 PG (27.0-34.0); PLATELET COUNT 220 TH/MM3 (150-450); RED BLOOD COUNT 4.35 MIL/MM3 (4.50-5.90); RED CELL DISTRIBUTION WIDTH 20.9 % (11.6-17.2); WHITE BLOOD COUNT 15.7 TH/MM3 (4.0-11.0)
--- NOTE | 2017-03-12 21:56 | RADRPT ---
EXAM DATE/TIME: 03/12/2017 21:19 [place] COMPARISON: CHEST SINGLE AP, February 11, 2017, 3:00. INDICATIONS : Short of breath. MEDICAL HISTORY : Chronic obstructive pulmonary disease. Hypertension SURGICAL HISTORY : CABG. Coronary artery stent. ENCOUNTER: Initial ACUITY: 1 day PAIN SCORE: Non-responsive. LOCATION: Bilateral chest FINDINGS: Hazy bilateral parenchymal opacities and small bilateral pleural effusions are present. Similar findi ngs were seen previously. No pneumothorax. Mild cardiomegaly is stable. Previous median sternotomy. Endotracheal tube tip is approximately 4 cm above the iman. A nasogastric tube with tip in the stom ach. A right subclavian central venous catheter is present with tip in the superior vena cava. CONCLUSION: 1. Hazy bilateral parenchymal opacities and small bilateral pleural effusions, probably failure relat ed. 2. Mild cardiomegaly similar to before. 3. Lines and tubes appear appropriately positioned. Please see above. Ap Aguayo MD on March 12, 2017 at 21:53 Board Certified Radiologist. This report was verified electronically.
[2017-03-12 21:58] LABS: APTT (PATIENT) 27.2 SEC (24.3-30.1); INTERNATIONAL NORMALIZED RATIO 1.3 RATIO
[2017-03-12 21:59] LABS: ANION GAP 7 MEQ/L (5-15); AST (GOT) 39 U/L (15-37); BICARBONATE 30.4 MEQ/L (21.0-32.0); BLOOD UREA NITROGEN 29 MG/DL (7-18); CHLORIDE 103 MEQ/L (98-107); GLOMERULAR FILTRATION RATE 42 ML/MIN (>89); POTASSIUM 5.3 MEQ/L (3.5-5.1); SODIUM (NA) 140 MEQ/L (136-145)
[2017-03-12 22:00] LABS: ALT (GPT) 48 U/L (12-78)
[2017-03-12 22:04] LABS: ALKALINE PHOSPHATASE 145 U/L (45-117); CREATINE KINASE 102 U/L (39-308); TOTAL BILIRUBIN ADULT 0.5 MG/DL (0.2-1.0)
[2017-03-12] MEDS ORDERED: FUROSEMIDE 20 MG/2 ML VIAL IVP ONE (22:30)
[2017-03-12] MEDS ORDERED: SODIUM CHLORIDE 0.9% FLUSH 10 ML FLUSH PRN ×2 (23:30→23:45)
[2017-03-12] MEDS ORDERED: hydrOXYzine HCL 25 MG TAB PO PRN (23:30)
[2017-03-12] MEDS ORDERED: BISACODYL 10 MG SUPP RECTAL PRN ×2 (23:30→23:45)
[2017-03-12] MEDS ORDERED: CHLORHEXIDINE GLUCONATE 2 % 1 PACK (2 CLOTHS) TOP PRN ×2 (23:30→23:45)
[2017-03-12] MEDS ORDERED: MAGNESIUM HYDROXIDE SUSP 30 ML CUP PO PRN ×2 (23:30→23:45)
[2017-03-12] MEDS ORDERED: MISCELLANEOUS NURSING INFORMATION XX SCH ×2 (23:30→23:45)
[2017-03-12] MEDS ORDERED: NITROGLYCERIN 0.4 MG SL 25 TABS/BTL SL PRN (23:30)
[2017-03-12] MEDS ORDERED: LACTULOSE SYRUP 20 GM/30 ML CUP PO PRN ×2 (23:30→23:45)
[2017-03-12] MEDS ORDERED: SENNOSIDES 8.6 MG TAB PO PRN ×2 (23:30→23:45)
--- NOTE | 2017-03-12 23:30 | HHI.HP ---
HPI Service Critical Care Medicine Primary Care Physician Unknown Admission Diagnosis RESPIRATORY FAILURE S/P INTUBATION, PULMONARY EDEMA Diagnosis: Travel History International Travel<30 Days: No Contact w/Intl Traveler <30 Da: No Traveled to Known Affected Are: No History of Present Illness 66-year-old brought to the emergency department via EMS for shortness of breath. According to EMS the patient was at the correction earlier today when he became short of breath. He was placed on a BiPAP with no significant improvement. He was intubated in the emergency department by ED attending that also placed the subclavian line for an. IV access Review of Systems ROS Unobtainable patient is sedated and intubated Past Family Social History Allergies: Coded Allergies: acetaminophen (Unverified Allergy, Severe, "LIVER PROBLEMS", 01/28/17) diatrizoate meglumine (Unverified Allergy, Severe, Anaphylaxis, 01/28/17) gadobenic acid (Unverified Allergy, Severe, Anaphylaxis, 01/28/17) gadodiamide (Unverified Allergy, Severe, Anaphylaxis, 01/28/17) gadoteridol (Unverified Allergy, Severe, Anaphylaxis, 01/28/17) iodixanol (Unverified Allergy, Severe, Anaphylaxis, 01/28/17) iohexol (Unverified Allergy, Severe, Anaphylaxis, 01/28/17) penicillin G (Unverified Allergy, Severe, "HOT THROAT", 01/28/17) Uncoded Allergies: RADIOISOTOPES (Allergy, Severe, 09/27/13) UNKONWN RXN, LISTED ON PATIENT PAPERWORK FROM [facility]. Past Medical History CAD CHF, EF 30-35% 03/02/15 Paroxysmal atrial fibrillation Hypertension CKD stage III Diabetes mellitus, type II COPD Hypothyroidism Mood disorder GERD History of DVT, on Xarelto Past Surgical History CABG 3 in 2007 Cardiac catheterization with stent placement Cataract surgery bilaterally no sun retinal reattachment, right eye Great toe amputation Fifth toe amputation Reported Medications Reported Meds & Active Scripts Active Oxygen (O2) (Miscellaneous Medication) Inha Liter GEORGE.CANULA CONTINUOUS Oxygen Concentrator Portable Gaseous 2 L/min via Nasal Canula Continuous For 99 months Aspirin EC (Aspirin) 81 Mg Tabdr 81 Mg PO DAILY Prednisone 10 Mg Tab 10 Mg PO BID Furosemide 20 Mg Tab 20 Mg PO DAILY Potassium Chloride Microencaps 20 Meq Tab 20 Meq PO DAILY Azithromycin 250 Mg Tab 250 Mg PO DAILY Xanax (Alprazolam) 0.25 Mg Tab 0.25 Mg PO Q6H PRN Oxycodone (Oxycodone HCl) 10 Mg Tab 10 Mg PO Q4H PRN Morphine ER (Morphine Sulfate) 15 Mg Tab 15 Mg PO BID Reported Zofran (Ondansetron HCl) 4 Mg Tab 4 Mg PO Q6HR PRN Nitroglycerin SL (Nitroglycerin) 0.4 Mg Subl 0.4 Mg SL DIRECTED PRN ONE TABLET UNDER THE TONGUE NEEDED FOR CHEST PAIN, MAY REPEAT EVERY FIVE MINUTES FOR A TOTAL OF 3 DOSES OR CALL 911 IF NO RELIEF Duoneb (Ipratropium-Albuterol Neb) 0.5-2.5 Mg/3 Ml Neb 3 Ml NEB Q6HR PRN Hydroxyzine HCl 25 Mg Tab 25 Mg PO Q6HR PRN Glucose Gel (Dextrose) 40 % Gel 1 Tube PO ONCE PRN Glucagon Emergency Inj Kit (Glucagon (Rdna) Inj Kit) 1 Mg Kit 1 Mg IM ONCE PRN Albuterol Neb (Albuterol Sulfate) 2.5 Mg/3 Ml Neb 2.5 Mg NEB Q2HR PRN Vitamin C (Ascorbic Acid) 250 Mg Tab 250 Mg PO BID Pred Forte Opth 1% (Prednisolone Acetate Opth 1%) 1% Susp 1 Drop RIGHT EYE BID Acidophilus Probiotic (Lactobacillus) 100 Mg (1 Billion Cell) Cap 1 Cap PO BID Humulin 70-30 Inj (Insulin NPH Isophane-Reg (Human) 70-30 Inj) 1,000 Unit/10 Ml Vial 70 Units SQ BID Coreg (Carvedilol) 3.125 Mg Tab 3.125 Mg PO BID Xarelto (Rivaroxaban) 20 Mg Tab 20 Mg PO DAILY Tresiba Flextouch Pen Inj (Insulin Degludec Inj) 600 unit/3 ML Pen 95 Units SQ HS Seroquel (Quetiapine Fumarate) 25 Mg Tab 25 Mg PO HS Multiple Vitamin/Minerals (Multiple Vitamins W/ Minerals) 1 Tab Tab 1 Tab PO DAILY Melatonin 3 Mg Tab 3 Mg PO HS Lisinopril 2.5 Mg Tab 2.5 Mg PO DAILY Levothyroxine (Levothyroxine Sodium) 137 Mcg Tab 137 Mcg PO DAILY Ferrous Sulfate 325 Mg (65 Mg Iron) Tablet 325 Mg PO DAILY Humulin 70-30 Inj (Insulin NPH Isophane-Reg (Human) 70-30 Inj) 1,000 Unit/10 Ml Vial 30 Units SQ IN THE EVENING Before Dinner Gas-X (Simethicone) 125 Mg Tab.chew 125 Mg PO DAILY Debrox Otic Drops (Carbamide Peroxide Otic Drops) 6.5% Soln 5 Drop EACH EAR MONTHLY Vitamin D3 (Cholecalciferol) 3,000 Unit Tab 3,000 Units PO DAILY Calcitriol 0.25 Mcg Cap 0.25 Mcg PO MOWEFR Take 1 capsule (0.25mcg) daily on Friday,Friday and Friday Lipitor (Atorvastatin Calcium) 40 Mg Tab 40 Mg PO HS Active Ordered Medications Current Medications Medications (Trade) Dose Ordered Sig/Gucci Route PRN Reason Start Time Stop Time Status Last Admin Dose Admin Alprazolam (Xanax) 0.25 mg Q6H PRN PO ANXIETY 03/12/17 23:30 Aspirin (Ecotrin Ec) 81 mg DAILY PO 03/13/17 09:00 Atorvastatin Calcium (Lipitor) 40 mg HS PO 03/13/17 21:00 Calcitriol (Rocaltrol) 0.25 mcg MoWeFr@0900 PO 03/14/17 09:00 Carbamide Peroxide (Debrox 6.5% Otic) 5 drop BID EACH EAR 03/13/17 09:00 Carvedilol (Coreg) 3.125 mg BID PO 03/13/17 09:00 Cholecalciferol (Vitamin D3) 3,000 units DAILY PO 03/13/17 09:00 Ferrous Sulfate (Ferrous Sulfate) 325 mg DAILY PO 03/13/17 09:00 Furosemide (Lasix) 20 mg DAILY PO 03/13/17 09:00 Hydroxyzine HCl (Atarax) 25 mg Q6HR PRN PO ITCHING 03/12/17 23:30 Nitroglycerin (Nitrostat Sl) 0.4 mg Q5M PRN SL CHEST PAIN 03/12/17 23:30 Prednisolone Acetate (Pred Forte 1% Opth Susp) 1 drop BID RIGHT EYE 03/13/17 09:00 Quetiapine Fumarate (SEROquel) 25 mg HS PO 03/13/17 21:00 Rivaroxaban (Xarelto) 20 mg DAILY PO 03/13/17 09:00 Ascorbic Acid (Vitamin C) 250 mg BID PO 03/13/17 09:00 Lactobacillus Acidophilus (Lactinex) 1 tab BID PO 03/13/17 09:00 Levothyroxine Sodium (Synthroid) 25 mcg DAILY@0600 PO 03/13/17 06:00 Melatonin (Melatonin) 5 mg HS PO 03/13/17 21:00 Multivitamins/ Minerals Therapeutic (Theragran M Tab) 1 tab DAILY PO 03/13/17 09:00 Ondansetron HCl (Zofran Odt) 4 mg Q6H PRN PO NAUSEA OR VOMITING 03/13/17 00:00 Sodium Chloride (NS Flush) 2 ml UNSCH PRN .XX FLUSH AFTER USING IV ACCESS 03/12/17 23:30 Sodium Chloride (NS Flush) 2 ml BID .XX 03/13/17 09:00 Miscellaneous Information 1 [id number] XX 03/12/17 23:30 Chlorhexidine Gluconate (Chlorhexidine 2% Cloth) 3 pack Taper DAILY@04 TOP 03/13/17 04:00 03/09/18 03:59 Chlorhexidine Gluconate (Chlorhexidine 2% Cloth) 3 pack UNSCH PRN TOP HYGIENIC CARE 03/12/17 23:30 Senna/Docusate Sodium (Kimberly-Colace) 1 tab BID PO 03/13/17 09:00 Magnesium Hydroxide (Milk Of Magnesia Liq) 30 ml Q12H PRN PO MILD - MODERATE CONSTIPATION 03/12/17 23:30 Sennosides (Senokot) 17.2 mg Q12H PRN PO MODERATE - SEVERE CONSTIPATION 03/12/17 23:30 Bisacodyl (Dulcolax Supp) 10 mg DAILY PRN RECTAL SEVERE CONSITIPATION 03/12/17 23:30 Lactulose (Lactulose Liq) 30 ml DAILY PRN PO SEVERE CONSITIPATION 03/12/17 23:30 Propofol 100 ml @ 3.3 mls/hr TITRATE PRN IV SEDATION 03/12/17 23:30 Chlorhexidine Gluconate (Peridex 0.12% Liq) 15 ml BID@08,20 MT 03/13/17 08:00 Sodium Chloride 1,000 ml @ 84 mls/hr [id number] IV 03/12/17 23:33 03/13/17 01:20 Acetaminophen (Tylenol) 650 mg Q6H PRN PO PAIN 1-10 AND/OR FEVER >101F 03/12/17 23:45 UNV Morphine Sulfate (Morphine Inj) 2 mg Q2H PRN IV PUSH PAIN SCALE 6 TO 10 03/12/17 23:45 Midazolam HCl (Versed Inj) 2 mg Q1H PRN IV PUSH SEDATION 03/12/17 23:45 Artificial Tears (Tears Naturale Opth Soln) 1 drop TID EACH EYE 03/13/17 09:00 Ondansetron HCl (Zofran Inj) 4 mg Q6H PRN IV PUSH NAUSEA OR VOMITING 03/12/17 23:45 Albuterol/ Ipratropium (Duoneb Neb) 1 ampule Q6HR NEB INH 03/13/17 04:00 Albuterol/ Ipratropium (Duoneb Neb) 1 ampule Q2HR NEB PRN INH WHEEZING 03/12/17 23:45 Aztreonam 2000 mg/ Sodium Chloride 100 ml @ 200 mls/hr Q8H IV 03/13/17 02:00 Levofloxacin/ Dextrose 150 ml @ 100 mls/hr Q24H IV 03/13/17 01:00 Methylprednisolone Sodium Succinate (SoluMEDROL INJ) 40 mg Q8HR IV PUSH 03/13/17 06:00 Levothyroxine Sodium (Synthroid) 112 mcg DAILY@0600 PO 03/13/17 06:00 Family History No family history significant for early coronary artery disease or cancer Social History Quit smoking 40 years ago No history of alcohol or illicit drug abuse Physical Exam Vital Signs Vital Signs Date Time Temp Pulse Resp B/P (MAP) Pulse Ox O2 Delivery O2 Flow Rate FiO2 03/12/17 22:49 59 16 111/57 (75) 99 Ventilator 50 03/12/17 22:26 100 50 03/12/17 22:22 16 100 Ventilator 50 03/12/17 22:19 100 Ventilator 50 03/12/17 22:11 63 16 92/50 (64) 100 Ventilator 50 03/12/17 21:40 65 16 110/53 (72) 100 Ventilator 50 03/12/17 21:01 107 20 240/112 (154) 100 03/12/17 20:50 100 100 03/12/17 20:42 107 20 208/92 (130) 100 03/12/17 20:37 100 03/12/17 20:33 113 83 Non-Rebreather 03/12/17 20:31 91 29 236/182 (200) 98 Non-Rebreather 03/12/17 20:29 113 40 236/112 (153) 03/12/17 20:24 116 40 236/112 (153) 98 Non-Rebreather Physical Exam GENERAL: Elderly gentleman sedated and intubated SKIN: Warm and dry. HEAD: Normocephalic. EYES: No scleral icterus. No injection or drainage. NECK: Supple, trachea midline. No JVD or lymphadenopathy. Intubated CARDIOVASCULAR: Regular rate and rhythm without murmurs, gallops, or rubs. RESPIRATORY: Breath sounds equal bilaterally. No accessory muscle use. GASTROINTESTINAL: Abdomen soft, non-tender, nondistended. MUSCULOSKELETAL: No cyanosis, or edema. BACK: Nontender without obvious deformity. NEURO EXAM: GCS: M6 VT E3 Mental Status: The patient is sedated and intubated Cranial Nerves: Pupils are round, reactive to light. Reflexes: Biceps, patellar, and Achilles are 2/4 bilaterally. No clonus. Laboratory Laboratory Tests Test 03/12/17 21:20 03/12/17 21:22 Blood Gas Puncture Site LT RADIAL Blood Gas Patient Temperature 98.6 Blood Gas HCO3 29 Blood Gas Base Excess 3.3 Blood Gas Oxygen Saturation 98 Arterial Blood pH 7.29 Arterial Blood Partial Pressure CO2 63 Arterial Blood Partial Pressure O2 371 Arterial Blood Oxygen Content 15.3 Arterial Blood Carboxyhemoglobin 1.4 Arterial Blood Methemoglobin 0.4 Blood Gas Hemoglobin 10.4 Oxygen Delivery Device VENT Blood Gas Ventilator Setting Blood Gas Inspired Oxygen 100 White Blood Count 15.7 Red Blood Count 4.35 Hemoglobin 10.7 Hematocrit 34.3 Mean Corpuscular Volume 78.9 Mean Corpuscular Hemoglobin 24.5 Mean Corpuscular Hemoglobin Concent 31.0 Red Cell Distribution Width 20.9 Platelet Count 220 Mean Platelet Volume 8.6 Neutrophils (%) (Auto) 90.0 Lymphocytes (%) (Auto) 3.0 Monocytes (%) (Auto) 6.0 Eosinophils (%) (Auto) 0.6 Basophils (%) (Auto) 0.4 Neutrophils # (Auto) 14.2 Lymphocytes # (Auto) 0.5 Monocytes # (Auto) 0.9 Eosinophils # (Auto) 0.1 Basophils # (Auto) 0.1 CBC Comment DIFF FINAL Differential Comment Prothrombin Time 15.0 Prothromb Time International Ratio 1.3 Activated Partial Thromboplast Time 27.2 Urine Color YELLOW Urine Turbidity HAZY Urine pH 6.5 Urine Specific [place] 1.017 Urine Protein 300 Urine Glucose (UA) NEG Urine Ketones NEG Urine Occult Blood NEG Urine Nitrite NEG Urine Bilirubin NEG Urine Urobilinogen LESS THAN 2.0 Urine Leukocyte Esterase NEG Urine RBC 11 Urine WBC 6 Urine Squamous Epithelial Cells 1 Urine Amorphous Sediment RARE Urine Hyaline Casts 19 Urine Mucus FEW Microscopic Urinalysis Comment CULT NOT INDICATED Blood Urea Nitrogen 29 Creatinine 1.63 Random Glucose 249 Total Protein 6.7 Albumin 2.6 Calcium Level 7.7 Alkaline Phosphatase 145 Aspartate Amino Transf (AST/SGOT) 39 Alanine Aminotransferase (ALT/SGPT) 48 Total Bilirubin 0.5 Sodium Level 140 Potassium Level 5.3 Chloride Level 103 Carbon Dioxide Level 30.4 Anion Gap 7 Estimat Glomerular Filtration Rate 42 Total Creatine Kinase 102 Creatine Kinase MB 4.0 Troponin I 0.15 B-Type Natriuretic Peptide 853 Date/Time Source Procedure Growth Status 03/12/17 21:22 Blood Peripheral Aerobic Blood Culture Pending Received 03/12/17 21:22 Blood Peripheral Anaerobic Blood Culture Pending Received 03/12/17 21:25 Nasal Washing Influenza Types A,B Antigen (GABE) - Final NEGATIVE FOR FLU A AND B ANTIGEN.... Complete Result Diagram: 03/12/17212103/12/172121 Caprini VTE Risk Assessment Caprini VTE Risk Assessment: Mod/High Risk (score >= 2) Caprini Risk Assessment Model Point Value = 1 Point Value = 2 Point Value = 3 Point Value = 5 Age 41-60 Minor surgery BMI > 25 kg/m2 Swollen legs Varicose veins or History of unexplained or recurrent spontaneous Oral contraceptives or hormone replacement Sepsis (< 1 month) Serious lung disease, including pneumonia (< 1 month) Abnormal pulmonary function Acute myocardial infarction Congestive heart failure (< 1 month) History of inflammatory bowel disease Medical patient at bed rest Age 61-74 Arthroscopic surgery Major open surgery (> 45 min) Laparoscopic surgery (> 45 min) Malignancy Confined to bed (> 72 hours) Immobilizing plaster cast Central venous access Age >= 75 History of VTE Family history of VTE Factor V Leiden Prothrombin [id number] Lupus anticoagulant Anticardiolipin antibodies Elevated serum homocysteine Heparin-induced thrombocytopenia Other congenital or acquired thrombophilia Stroke (< 1 month) Elective arthroplasty Hip, pelvis, or leg fracture Acute spinal cord injury (< 1 month) Prophylaxis Regimen Total Risk Factor Score Risk Level Prophylaxis Regimen 0-1 Low Early ambulation 2 Moderate Order ONE of the following: *Sequential Compression Device (SCD) *Heparin 5000 units SQ BID 3-4 Higher Order ONE of the following medications: *Heparin 5000 units SQ TID *Enoxaparin/Lovenox 40 mg SQ daily (WT < 150 kg, CrCl > 30 mL/min) *Enoxaparin/Lovenox 30 mg SQ daily (WT < 150 kg, CrCl > 10-29 mL/min) *Enoxaparin/Lovenox 30 mg SQ BID (WT < 150 kg, CrCl > 30 mL/min) AND/OR *Sequential Compression Device (SCD) 5 or more Highest Order ONE of the following medications: *Heparin 5000 units SQ TID (Preferred with Epidurals) *Enoxaparin/Lovenox 40 mg SQ daily (WT < 150 kg, CrCl > 30 mL/min) *Enoxaparin/Lovenox 30 mg SQ daily (WT < 150 kg, CrCl > 10-29 mL/min) *Enoxaparin/Lovenox 30 mg SQ BID (WT < 150 kg, CrCl > 30 mL/min) AND *Sequential Compression Device (SCD) Assessment and Plan Assessment and Plan Respiratory failure - Broad-spectrum antibiotic - Urine antigens - Panculture - Follow-up cultures and de-escalate per sensitivity - Mechanical ventilation - CXR and ABG daily - Vent bundle CAD - No acute coronary syndrome - Troponin series to follow - Beta kristopher Paroxysmal atrial fibrillation - Coreg for rate control - Xarelto Hypertension - Carvediol CKD stage III - With hyperkalemia without EKG change - Continue IV hydration - Strict I's and O's - Monitor trend Diabetes mellitus, type II - Insulin-dependent - Insulin sliding scale - Long-acting insulin on hold until tube feeds or diet started COPD - Exacerbation - DuoNeb scheduled and when necessary - Steroid Hypothyroidism - Levothyroxine Mood disorder - Quetiapine GERD - Pepcid History of DVT - Xarelto DVT GI prophylaxis - Teds SCDs - Xarelto - Pepcid Critical Care: The total critical care time was 35 minutes. Time to perform other separately billable procedures was not included in the critical care time. William Linda MD Mar 12, 2017 23:30
[2017-03-12] MEDS ORDERED: ACETAMINOPHEN 325 MG TAB PO PRN (23:45)
[2017-03-12] MEDS ORDERED: ONDANSETRON HCL 4 MG/2 ML VIAL IV PUSH PRN (23:45)
[2017-03-12] MEDS ORDERED: MIDAZOLAM HCL 2 MG/2 ML VIAL IV PUSH PRN (23:45)
[2017-03-12] MEDS ORDERED: RESP: ALBUTEROL 2.5 MG/IPRATROPIUM 0.5 MG NEB (PRN) INH (23:45)
[2017-03-13] VITALS (21 sets, daily range): BP systolic 106–134; BP diastolic 50–63; PULSE 45–118; RESP 16–20; TEMP 97.5–99; O2SAT 95–100
[2017-03-13] MEDS ORDERED: ONDANSETRON ODT 4 MG TAB PO PRN
[2017-03-13] MEDS: SODIUM CHLOR 0.9% 1000 ML INJ 1,000 ML IV SCH ×2 (01:20→14:44)
[2017-03-13] MEDS: LEVOFLOXACIN 750 MG PREMIX INJ 150 ML IV SCH (01:25)
[2017-03-13] MEDS: PROPOFOL 1000 MG/100 ML INJ 100 ML IV PRN ×4 (02:59→18:32)
[2017-03-13] MEDS: RESP: ALBUTEROL 2.5 MG/IPRATROPIUM 0.5 MG NEB (SCH) INH ×4 (03:24→20:40)
[2017-03-13] MEDS: CHLORHEXIDINE GLUCONATE 2 % 1 PACK (2 CLOTHS) TOP SCH (03:35)
[2017-03-13] MEDS: AZTREONAM INJ 2,000 MG in SODIUM CHLORIDE 0.9% INJ 100 ML IV SCH ×3 (03:35→18:33)
[2017-03-13 03:59] LABS: AUTOMATED NEUTROPHIL # 8.9 TH/MM3 (1.8-7.7); BASOPHIL % 0.3 % (0.0-2.0); EOSINOPHIL # 0.1 TH/MM3 (0-0.4); EOSINOPHIL % 0.9 % (0.0-4.0); HEMATOCRIT 29.5 % (39.0-51.0); HEMO FLAGS DIFF FINAL; LYMPHOCYTE # 1.3 TH/MM3 (1.0-4.8); MEAN CELL VOLUME 77.5 FL (80.0-100.0); MEAN CORPUSCULAR HEMOGLOBIN 24.4 PG (27.0-34.0); MEAN CORPUSCULAR HGB CONC 31.4 % (32.0-36.0); MONO % 10.1 % (0.0-8.0); NEUT % 77.7 % (16.0-70.0); PLATELET COUNT 169 TH/MM3 (150-450); RED CELL DISTRIBUTION WIDTH 21.3 % (11.6-17.2); WHITE BLOOD COUNT 11.5 TH/MM3 (4.0-11.0)
[2017-03-13] MEDS ORDERED: CHLORHEXIDINE GLUCONATE 2 % 1 PACK (2 CLOTHS) TOP SCH (04:00)
[2017-03-13 04:19] LABS: BICARBONATE 33.4 MEQ/L (21.0-32.0); CALCIUM-PROTEIN CORRECTED 7.9 MG/DL (8.5-10.1); MAGNESIUM 1.9 MG/DL (1.5-2.5); POTASSIUM 3.9 MEQ/L (3.5-5.1); TOTAL BILIRUBIN ADULT 0.4 MG/DL (0.2-1.0)
[2017-03-13 05:39] LABS: BLOOD GAS BASE EXCESS 6.5 mmol/L (-2-2); BLOOD GAS CARBOXYHEMOGLOBIN 2.2 % (0-4); BLOOD GAS HCO3 29 mmol/L (22-26); BLOOD GAS METHEMOGLOBIN 0.9 % (0-2); BLOOD GAS O2 HGB SATURATION 93 % (90-100); BLOOD GAS OXYGEN CONTENT 11.9 Vol % (12.0-20.0); BLOOD GAS PCO2 32 mmHg (38-42); BLOOD GAS PO2 68 mmHg (61-120); BLOOD GAS TOTAL HGB 9.1 G/DL (12.0-16.0); TEMP CORR TO 98.6
[2017-03-13 05:40] LABS: CRITICAL VALUE YES; OXYGEN DEVICE VENTILATOR
[2017-03-13 05:41] LABS: DRAW SITE LT RADIAL; FIO2 40 %; NUMBER OF ARTERIAL PUNCTURES 1; STAT NO; ULNAR PULSE PRESENT; VENT SETTINGS AC 16/600/5PEEP
--- NOTE | 2017-03-13 05:54 | RADRPT ---
EXAM DATE/TIME: 03/13/2017 04:58 [place] COMPARISON: CHEST SINGLE AP, March 12, 2017, 21:19. INDICATIONS : Respiratory failure. MEDICAL HISTORY : Chronic obstructive pulmonary disease. Hypertension. SURGICAL HISTORY : CABG. Coronary artery stent. ENCOUNTER: Subsequent ACUITY: 2 days PAIN SCORE: Non-responsive. LOCATION: Bilateral chest FINDINGS: Endotracheal tube in good position. Nasogastric tube enters stomach. Right central line in superior v enma cava. Bilateral mostly basilar consolidation and pleural effusions are similar to March 12. N o pneumothorax. CONCLUSION: 1. Stable exam. Support apparatus in good position. Nilson Jeffries MD on March 13, 2017 at 5:51 Board Certified Radiologist. This report was verified electronically.
[2017-03-13] MEDS: LEVOTHYROXINE SODIUM 25 MCG TAB PO SCH ×2 (06:00→06:32)
[2017-03-13] MEDS: methylPREDNISolone SOD SUCC 40 MG/1 ML VIAL IV PUSH SCH ×3 (06:29→21:08)
[2017-03-13] MEDS: LEVOTHYROXINE SODIUM 112 MCG TAB PO SCH ×2 (06:29→06:31)
--- NOTE | 2017-03-13 07:38 | EKG ---
Date Performed: 03/12/2017 Time Performed: 20:44:31 PTAGE: 67 years EKG: Sinus tachycardia SEPTAL MYOCARDIAL INFARCTION, ST DEVIATION AND MODERATE T-WAVE ABNORMALIT Y, CONSIDER LATERAL ISCHEMIA ABNORMAL ECG Since PREVIOUS TRACING , now tachycardic and with ST shifts concerning for injury or ischemia. Clinical correlation requested PREVIOUS TRACIN02/10/2017 18.41 DOCTOR: Brittni Rodriguez Interpretating Date/Time 03/13/2017 07:36:40
[2017-03-13] MEDS: CHLORHEXIDINE 0.12% (ORAL KIT) 15 ML CUP MT SCH ×2 (08:00→21:13)
[2017-03-13] MEDS ORDERED: DOCUSATE SODIUM 50 MG/SENNA 8.6 MG TAB PO SCH (09:00)
[2017-03-13] MEDS ORDERED: FUROSEMIDE 20 MG TAB PO SCH (09:00)
[2017-03-13] MEDS ORDERED: SODIUM CHLORIDE 0.9% FLUSH 10 ML FLUSH SCH (09:00)
[2017-03-13] MEDS: prednisoLONE ACETATE 1% OPHT SUSP 5 ML BTL RIGHT EYE SCH ×2 (09:00→21:00)
[2017-03-13] MEDS: ARTIFICIAL TEARS OPTH SOLN 15 ML BTL EACH EYE SCH ×3 (09:04→18:33)
[2017-03-13] MEDS: CARBAMIDE PEROXIDE 6.5% OTIC SOLN 15 ML BTL EACH EAR SCH ×2 (09:05→21:08)
[2017-03-13] MEDS: SODIUM CHLORIDE 0.9% FLUSH 10 ML FLUSH SCH ×2 (09:06→21:08)
[2017-03-13] MEDS: FERROUS SULFATE 325 MG (65 MG ELEMENTAL IRON) TAB PO SCH (09:06)
[2017-03-13] MEDS: CHOLECALCIFEROL (VIT D3) 1000 UNIT TAB PO SCH (09:06)
[2017-03-13] MEDS: CARVEDILOL 3.125 MG TAB PO SCH ×2 (09:06→21:00)
[2017-03-13] MEDS: ASCORBIC ACID 500 MG TAB PO SCH ×2 (09:07→21:09)
[2017-03-13] MEDS: ASPIRIN EC 81 MG TABEC PO SCH (09:07)
[2017-03-13] MEDS: LACTOBACILLUS ACIDOPHILUS TAB PO SCH ×2 (09:07→21:10)
[2017-03-13] MEDS: MULTIVITAMINS/MINERALS THERAPEUTIC TAB PO SCH (09:07)
[2017-03-13] MEDS: DOCUSATE SODIUM 50 MG/SENNA 8.6 MG TAB PO SCH ×2 (09:07→20:29)
[2017-03-13] MEDS: RIVAROXABAN 20 MG TAB PO SCH (09:08)
--- NOTE | 2017-03-13 12:38 | HHI.CCPN ---
Subjective Remarks/Hospital Course 03/12: 66-year-old brought to the emergency department via EMS for shortness of breath. According to EMS the patient was at the halfway earlier today when he became short of breath. He was placed on a BiPAP with no significant improvement. He was intubated in the emergency department by ED attending that also placed the subclavian line for an. IV access. 03/13: Remains sedated, orally intubated on mechanical ventilation. Objective Vital Signs Date Time Temp Pulse Resp B/P (MAP) Pulse Ox O2 Delivery O2 Flow Rate FiO2 03/13/17 08:30 96 40 03/13/17 06:00 46 03/13/17 04:00 98.7 16 109/52 (71) 03/12/17 23:51 Ventilator Intake and Output 03/13/17 03/13/17 03/14/17 08:00 16:00 00:00 Intake Total 340 ml Output Total 650 ml Balance -310 ml Result Diagram: 03/13/174 03/13/17 0314 Other Results Microbiology Date/Time Source Procedure Growth Status 03/12/17 21:25 Nasal Washing Influenza Types A,B Antigen (GABE) - Final NEGATIVE FOR FLU A AND B ANTIGEN.... Complete 03/12/17 21:22 Urine Catheterized Urine Legionella Antigen - Final PRESUMPTIVE NEGATIVE FOR LEGIONELLA P... Complete 03/12/17 21:22 Urine Catheterized Urine Streptococcus pneumoniae Antigen (M - Final PRESUMPTIVE NEGATIVE FOR STREPTOCOCCU... Complete Laboratory Tests Test 03/12/17 21:20 03/13/17 05:20 Blood Gas Puncture Site LT RADIAL LT RADIAL Blood Gas Patient Temperature 98.6 98.6 Blood Gas HCO3 29 mmol/L (22-26) 29 mmol/L (22-26) Blood Gas Base Excess 3.3 mmol/L (-2-2) 6.5 mmol/L (-2-2) Blood Gas Oxygen Saturation 98 % (90-100) 93 % (90-100) Arterial Blood pH 7.29 (7.380-7.420) 7.57 (7.380-7.420) Arterial Blood Partial Pressure CO2 63 mmHg (38-42) 32 mmHg (38-42) Arterial Blood Partial Pressure O2 371 mmHG (61-120) 68 mmHg (61-120) Arterial Blood Oxygen Content 15.3 Vol % (12.0-20.0) 11.9 Vol % (12.0-20.0) Arterial Blood Carboxyhemoglobin 1.4 % (0-4) 2.2 % (0-4) Arterial Blood Methemoglobin 0.4 % (0-2) 0.9 % (0-2) Blood Gas Hemoglobin 10.4 G/DL (12.0-16.0) 9.1 G/DL (12.0-16.0) Oxygen Delivery Device VENT VENTILATOR Blood Gas Ventilator Setting AC 16/600/5PEEP Blood Gas Inspired Oxygen 100 % 40 % Objective Remarks GENERAL: Elderly gentleman sedated and intubated SKIN: Warm and dry. HEAD: Normocephalic. EYES: No scleral icterus. No injection or drainage. NECK: Supple, trachea midline. No JVD or lymphadenopathy. Intubated CARDIOVASCULAR: Regular rate and rhythm without murmurs, gallops, or rubs. RESPIRATORY: Breath sounds equal bilaterally. No accessory muscle use. GASTROINTESTINAL: Abdomen soft, non-tender, nondistended. MUSCULOSKELETAL: No cyanosis, or edema. BACK: Nontender without obvious deformity. NEURO : Sedated, orally intubated on mechanical ventilation A/P Assessment and Plan Respiratory failure - Broad-spectrum antibiotic - Urine antigens - Panculture - Follow-up cultures and de-escalate per sensitivity - Mechanical ventilation - CXR and ABG daily - Vent bundle CAD NSTEMI - No acute coronary syndrome -Elevated troponin noted. Continue aspirin, beta kristopher. Awaiting cardiology evaluation. - Beta kristopher Paroxysmal atrial fibrillation - Coreg for rate control - Xarelto Hypertension - Carvediol CKD stage III - With hyperkalemia without EKG change - Continue IV hydration - Strict I's and O's - Monitor trend Diabetes mellitus, type II - Insulin-dependent - Insulin sliding scale - Long-acting insulin on hold until tube feeds or diet started COPD - Exacerbation - DuoNeb scheduled and when necessary - Steroid Hypothyroidism - Levothyroxine Mood disorder - Quetiapine GERD - Pepcid History of DVT - Xarelto DVT GI prophylaxis - Teds SCDs - Xarelto - Pepcid Critical Care: The total critical care time was 35 minutes. Time to perform other separately billable procedures was not included in the critical care time. Young Deluca MD Mar 13, 2017 12:38
--- NOTE | 2017-03-13 15:31 | PD.WCN.NOT ---
Wound Consult Description: Received consult for lower bilateral extremities from Doctor William Linda. Communicated with: LUDA LIZARRAGA and call placed to Doctor Yosi for orders Recommendation: 1. Please cleanse wounds to bilateral heels with normal saline only and apply santyl ointment sathya thickness to wound bed. Cover with dry 4x4 gauze pads secured with rolled gauze and tape change dressing daily . 2.[place] deep tissue injuries to R lateral foot and L medial foot with povidone- iodine swabs BID and leave open to air 3.Cleanse wounds to L great toe, R second toe, and R third toe with normal saline and cover with single layer Xeroform gauze dressing just over wound bed and secure with adhesive bandage.Change dressing daily or PRN if saturated or dislodged 4. Cleanse wound to L lateral foot with normal saline and apply single layer Xeroform just over wound bed, cover with dry 4x4 gauze pads and secure dressing with rolled gauze and tape. Change daily or PRN if saturated or dislodged. 5.Shaving cream application to bilateral legs to soften scales and let sit on legs for 10 minutes before removing daily. Ammonium Lactate (Lact Hydrin) lotion is recommended for scaly dry skin to legs 6.Please obtain multi-podus boots for patient. 7.Continue to turn patient every 2 hours. Additional Information: Patient seen on 5th floor [facility] for evaluation of Bilateral lower extremity wound management. Patient is 66 year old male, that is intubated and sedated. Bilateral lower extremities are noted open to air with dry scaly dusky discolored skin. Appears to have had some barrier cream applied to bilateral lower legs. small healing skin tear is noted to anterior aspect of fleming. Patient is laying [facility] Iris bed with heels on mattress. LUDA LIZARRAGA in room during assessment. Removed dressing in place R heel to reveal unstageable pressure injury. Wound bed presents with ~30% yellow adherent slough and ~70% red tissue. Cleansed wound with normal saline. Wound measures 1.8cm x 1.5cm x slough. Wound has minimal serous drainage without odor. Wound margins are well defined and attached. Periwound is noted with hyperkeratotic tissue and dry peeling skin. Applied Xeroform single layer gauze dressing just over wound bed and covered with dry 4 x4 gauze pads secured with rolled gauze and tape. Removed dressing from L heel to reveal unstageable pressure injury. Wound bed presents with ~30% pink tissue and ~70% yellow slough. Wound measures 0.9cm x1cm x slough. Wound margins are well defined and attached. Periwound is noted with hyperkeratotic tissue and dry peeling skin.Wound has minimal serous drainage without odor.Cleansed wound with normal saline and covered wound with single layer Xeroform gauze dressing and applied dry 4x4 gauze pads, secured with rolled gauze and tape. Non blanchable areas of purple discoloration are noted to R lateral foot and L medial foot, indicating deep tissue injuries. Painted DTIs with povidone-iodine and left open to air.DTI to L medial foot measures 0.7cm x 0.9cm. R lateral foot DTI measures ~1cm x ~0.5cm. Open shallow ulceration are noted to R second toe, R third toe, L great toe and L lateral foot. L lateral foot open wound measures 1.3cm x 1cm x ~<0.1cm. R second toe measures 0.6cm x 0.4cm x ~0.1cm. R third toe wound measures 0.8 cm x 0.4 cm x0.1cm. L great toe wound measures 0.9cm x 0.5 cm x~<0.1cm. Wound to L lateral foot presents with dark red tissue and minimal sero-sanguinous drainage without odor. Periwound noted dark red hyperkeratotic tissue. all other shallow ulcerations are noted with 100% dry red tissue in wound beds without drainage or odor. Cleansed all open shallow ulcerations noted with normal saline and applied single layer Xeroform gauze just over wound beds and secured dressings on toes with adhesive bandage. Secured dressing on L lateral foot with rolled gauze and tape. Tiara Ell[facility] Mar 13, 2017 15:31
--- NOTE | 2017-03-13 18:30 | MB ---
cc: PRINCE NICOLE MD DATE OF CONSULTATION 03/13/17 HISTORY OF PRESENT ILLNESS The patient is a 66 year old male, history of coronary artery disease, bypass surgery, stent after that, peripheral vascular disease, chronic dermatitis, cardiomyopathy, history of congestive heart failure with repeated admissions to the hospital, jail resident, hypertension, diabetes, hyperlipidemia, chronic obstructive pulmonary disease and hypothyroidism and high anxiety level, paroxysmal atrial fibrillation. The patient apparently presented with severe shortness of breath, found to be in pulmonary edema, intubated and stabilized. Troponin was 1.4 range, came down. Could not communicate with the patient. Patient intubated and sedated. Chart reviewed, old chart. His electrocardiogram is sinus rhythm, ST and T wave changes laterally. Somewhat sinus bradycardia on the monitor here. Questionable septal myocardial infarction. PAST MEDICAL HISTORY As above. SOCIAL HISTORY skilled nursing resident. No alcohol, no drugs, no tobacco. ALLERGIES See chart for details. MEDICATIONS See chart for details. REVIEW OF SYSTEMS Not obtained due to patent's condition. PHYSICAL EXAMINATION GENERAL: Intubated and sedated. VITAL SIGNS: Blood pressure 115/70, pulse in the 50s, regular equal bilateral respirations on the ventilator. Atrial fibrillation. HEENT: Unremarkable. HEART: S1, S2. Systolic murmur grade 1-2/6. Rales at the base. ABDOMEN: No organomegaly, no mass. EXTREMITIES: Chronic dermatitis. IMAGING STUDIES Chest x-ray - congestive heart failure IMPRESSION AND PLAN Congestive heart failure, complex past medical history as above. Agree with the present management. We will change the Lasix to IV for a couple of days and get an echocardiogram. Thank you for the consultation. MD JOHNNY Uribe/ /5:37 PM /6:09 PM
[2017-03-13] MEDS: FUROSEMIDE 20 MG/2 ML VIAL IV PUSH SCH (18:33)
[2017-03-13] MEDS: POVIDONE IODINE 10% OINT 1 PACKET TOPICAL SCH (21:00)
[2017-03-13] MEDS: LACTIC ACID (AMMONIUM LACTATE) 12% LOTION 225 GM BTL TOPICAL SCH (21:00)
[2017-03-13] MEDS: ATORVASTATIN 40 MG TAB PO SCH (21:09)
[2017-03-13] MEDS: QUEtiapine FUMARATE 25 MG TAB PO SCH (21:09)
[2017-03-13] MEDS: MELATONIN 5 MG TAB PO SCH (21:09)
[2017-03-14] VITALS (22 sets, daily range): BP systolic 121–186; BP diastolic 63–88; PULSE 52–101; RESP 15–20; TEMP 97.7–99.3; O2SAT 16–100
[2017-03-14] MEDS: SODIUM CHLOR 0.9% 1000 ML INJ 1,000 ML IV SCH ×2 (00:02→13:09)
[2017-03-14] MEDS: PROPOFOL 1000 MG/100 ML INJ 100 ML IV PRN ×3 (00:02→09:27)
[2017-03-14] MEDS: LEVOFLOXACIN 750 MG PREMIX INJ 150 ML IV SCH (00:16)
[2017-03-14] MEDS: AZTREONAM INJ 2,000 MG in SODIUM CHLORIDE 0.9% INJ 100 ML IV SCH ×3 (03:02→17:15)
[2017-03-14] MEDS: CHLORHEXIDINE GLUCONATE 2 % 1 PACK (2 CLOTHS) TOP SCH ×2 (03:02→23:58)
[2017-03-14] MEDS: RESP: ALBUTEROL 2.5 MG/IPRATROPIUM 0.5 MG NEB (SCH) INH ×4 (03:44→20:34)
[2017-03-14] MEDS: LEVOTHYROXINE SODIUM 112 MCG TAB PO SCH (05:33)
[2017-03-14] MEDS: methylPREDNISolone SOD SUCC 40 MG/1 ML VIAL IV PUSH SCH ×3 (05:33→21:00)
[2017-03-14] MEDS: LEVOTHYROXINE SODIUM 25 MCG TAB PO SCH (05:33)
[2017-03-14] MEDS: POVIDONE IODINE 10% OINT 1 PACKET TOPICAL SCH ×2 (09:00→21:03)
[2017-03-14] MEDS: CALCITRIOL 0.25 MCG CAP PO SCH (09:00)
[2017-03-14] MEDS: FERROUS SULFATE 325 MG (65 MG ELEMENTAL IRON) TAB PO SCH (09:00)
[2017-03-14] MEDS: ASPIRIN EC 81 MG TABEC PO SCH (09:00)
[2017-03-14] MEDS: prednisoLONE ACETATE 1% OPHT SUSP 5 ML BTL RIGHT EYE SCH ×2 (09:00→21:00)
[2017-03-14] MEDS: MULTIVITAMINS/MINERALS THERAPEUTIC TAB PO SCH (09:04)
[2017-03-14] MEDS: CARVEDILOL 3.125 MG TAB PO SCH (09:04)
[2017-03-14] MEDS: LACTOBACILLUS ACIDOPHILUS TAB PO SCH ×2 (09:04→21:02)
[2017-03-14] MEDS: DOCUSATE SODIUM 50 MG/SENNA 8.6 MG TAB PO SCH ×2 (09:05→21:01)
[2017-03-14] MEDS: CHOLECALCIFEROL (VIT D3) 1000 UNIT TAB PO SCH (09:05)
[2017-03-14] MEDS: ASCORBIC ACID 500 MG TAB PO SCH ×2 (09:05→21:01)
[2017-03-14] MEDS: RIVAROXABAN 20 MG TAB PO SCH (09:05)
[2017-03-14] MEDS: SODIUM CHLORIDE 0.9% FLUSH 10 ML FLUSH SCH ×2 (09:07→21:00)
[2017-03-14] MEDS: FUROSEMIDE 20 MG/2 ML VIAL IV PUSH SCH ×2 (09:07→17:15)
[2017-03-14] MEDS: CHLORHEXIDINE 0.12% (ORAL KIT) 15 ML CUP MT SCH ×2 (09:07→21:02)
[2017-03-14] MEDS: ARTIFICIAL TEARS OPTH SOLN 15 ML BTL EACH EYE SCH ×3 (09:07→17:14)
[2017-03-14] MEDS: CARBAMIDE PEROXIDE 6.5% OTIC SOLN 15 ML BTL EACH EAR SCH ×2 (09:08→21:02)
[2017-03-14] MEDS: LACTIC ACID (AMMONIUM LACTATE) 12% LOTION 225 GM BTL TOPICAL SCH ×2 (09:09→21:01)
[2017-03-14] MEDS: COLLAGENASE OINT 30 GM TUBE TOPICAL SCH (09:10)
[2017-03-14] MEDS: hydrALAZINE HCL 20 MG/ML VIAL IV PRN ×2 (13:07→18:23)
--- NOTE | 2017-03-14 14:07 | HHI.CCPN ---
Subjective Remarks/Hospital Course 03/12: 66-year-old brought to the emergency department via EMS for shortness of breath. According to EMS the patient was at the group home earlier today when he became short of breath. He was placed on a BiPAP with no significant improvement. He was intubated in the emergency department by ED attending that also placed the subclavian line for an. IV access. 03/13: Remains sedated, orally intubated on mechanical ventilation. 03/14: Sedated, easily arousable, orally intubated on mechanical ventilation. Objective Vital Signs Date Time Temp Pulse Resp B/P (MAP) Pulse Ox O2 Delivery O2 Flow Rate FiO2 03/14/17 13:40 100 40 03/14/17 06:00 61 03/14/17 04:00 98.0 16 131/63 (85) 03/12/17 23:51 Ventilator Intake and Output 03/14/17 03/14/17 03/15/17 08:00 16:00 00:00 Intake Total 1510 ml 1200 ml Output Total 1100 ml Balance 410 ml 1200 ml Result Diagram: 03/13/17 0314 03/13/17 0314 Other Results Microbiology Date/Time Source Procedure Growth Status 03/12/17 21:25 Nasal Washing Influenza Types A,B Antigen (GABE) - Final NEGATIVE FOR FLU A AND B ANTIGEN.... Complete 03/12/17 21:22 Urine Catheterized Urine Legionella Antigen - Final PRESUMPTIVE NEGATIVE FOR LEGIONELLA P... Complete 03/12/17 21:22 Urine Catheterized Urine Streptococcus pneumoniae Antigen (M - Final PRESUMPTIVE NEGATIVE FOR STREPTOCOCCU... Complete Imaging Last Impressions Chest X-Ray 03/13/17 0600 Signed Impressions: Service Date/Time: February 04:58 - CONCLUSION: 1. Stable exam. Support apparatus in good position. Nilson Jeffries MD Objective Remarks GENERAL: Elderly gentleman sedated and intubated SKIN: Warm and dry. HEAD: Normocephalic. EYES: No scleral icterus. No injection or drainage. NECK: Supple, trachea midline. No JVD or lymphadenopathy. Intubated CARDIOVASCULAR: Regular rate and rhythm without murmurs, gallops, or rubs. RESPIRATORY: Orally intubated on mechanical ventilation, Breath sounds equal bilaterally. No accessory muscle use. Scattered rhonchi bilaterally GASTROINTESTINAL: Abdomen soft, non-tender, nondistended. MUSCULOSKELETAL: No cyanosis, or edema. BACK: Nontender without obvious deformity. NEURO : Sedated, easily arousable, following commands, moves both upper extremities. orally intubated on mechanical ventilation A/P Assessment and Plan Respiratory failure - Broad-spectrum antibiotic - Urine antigens - Panculture - Follow-up cultures and de-escalate per sensitivity - Mechanical ventilation, daily C Pap trials to decide extubation. - Vent bundle CAD NSTEMI CHF - acute coronary syndrome -Elevated troponin noted. Continue aspirin, beta kristopher. Diurese with IV lasix. Cardiology following. F/u 2D echo. Paroxysmal atrial fibrillation - Coreg for rate control - Xarelto Hypertension - Carvediol CKD stage III - With hyperkalemia without EKG change - Continue IV hydration - Strict I's and O's - Monitor trend Diabetes mellitus, type II - Insulin-dependent - Insulin sliding scale - Long-acting insulin on hold until tube feeds or diet started COPD - Exacerbation - DuoNeb scheduled and when necessary - Steroid Hypothyroidism - Levothyroxine Mood disorder - Quetiapine GERD - Pepcid History of DVT - Xarelto DVT GI prophylaxis - Teds SCDs - Xarelto - Pepcid Critical Care: The total critical care time was 35 minutes. Time to perform other separately billable procedures was not included in the critical care time. Young Deluca MD Mar 14, 2017 14:07
--- NOTE | 2017-03-14 14:49 | PD.CARD.PN ---
Subjective Subjective Remarks intubated Objective Vital Signs / I&O Vital Signs Date Time Temp Pulse Resp B/P (MAP) Pulse Ox O2 Delivery O2 Flow Rate FiO2 03/14/17 14:00 97 03/14/17 13:40 100 40 03/14/17 12:24 100 40 03/14/17 12:22 40 03/14/17 12:00 97.9 70 15 186/77 (113) 100 03/14/17 12:00 70 03/14/17 12:00 40 03/14/17 11:51 100 40 03/14/17 10:00 71 03/14/17 08:23 98 40 03/14/17 08:00 98.2 94 20 140/88 (105) 100 03/14/17 08:00 94 03/14/17 08:00 40 03/14/17 06:00 61 03/14/17 04:00 98.0 52 16 131/63 (85) 96 03/14/17 04:00 40 03/14/17 04:00 52 03/14/17 03:50 97 40 03/14/17 02:00 53 03/14/17 00:06 98 40 03/14/17 00:00 59 03/14/17 00:00 40 03/14/17 00:00 97.7 59 16 121/72 (88) 100 03/13/17 22:00 50 03/13/17 20:46 95 40 03/13/17 20:00 97.5 49 16 126/60 (82) 96 03/13/17 20:00 40 03/13/17 20:00 49 03/13/17 18:00 51 03/13/17 16:00 98.9 51 16 118/56 (76) 100 03/13/17 16:00 118 03/13/17 15:39 96 40 I/O 03/13/17 03/13/17 03/13/17 03/14/17 03/14/17 03/14/17 07:00 15:00 23:00 07:00 15:00 23:00 Intake Total 340 ml 2029 ml 1510 ml 1200 ml Output Total 650 ml 650 ml 1100 ml Balance -310 ml 1379 ml 410 ml 1200 ml Intake IV Total 340 ml 2029 ml 1450 ml 1200 ml Other 60 ml Output Urine Total 650 ml 650 ml 1100 ml # Bowel Movements 0 Physical Exam heart s1s2 regular lung on vent abdomen free ext dermatitis Assessment and Plan Assessment and Plan continue supportive care bp control adjust meds possibly change lasix to po by am creatinine and troponins down Hiwot Mckinley MD Mar 14, 2017 14:49
[2017-03-14] MEDS: LOSARTAN 25 MG TAB PO SCH (15:30)
--- NOTE | 2017-03-14 17:00 | ECHRPT ---
Indication: CORONARY ATHEROSCLEROSIS CONCLUSIONS Mildly dilated left ventricle. Wall thickness is normal. The left ventricular systolic function is s everely reduced with an estimated ejection fraction is 35%. There is global hypokinesis. There is mild tricuspid valve regurgitation. The estimated systolic pulmonary pressure is 50-60 mmHg). A left sided pleural effusion is noted. Mild aortic valve calcification. BP: 131 / 63 HR: Rhythm: Sinus MEASUREMENTS (Male / Female) Normal Values Technical Quality: 2D ECHO LV Diastolic Diameter PLAX 5.0 cm 4.2 - 5.9 / 3.9 - 5.3 cm LV Systolic Diameter PLAX 4.3 cm IVS Diastolic Thickness 0.9 cm 0.6 - 1.0 / 0.6 - 0.9 cm LVPW Diastolic Thickness 0.9 cm 0.6 - 1.0 / 0.6 - 0.9 cm LV Relative Wall Thickness 0.4 LVOT Diameter 2.0 cm Aortic Root Diameter 3.1 cm LA Systolic Diameter LX 4.0 cm 3.0 - 4.0 / 2.7 - 3.8 cm M-MODE AV Cusp Separation MM 1.7 cm DOPPLER AV Peak Velocity 149.0 cm/s AV Peak Gradient 8.9 mmHg AV Mean Gradient 4.0 mmHg AV Velocity Time Integral 24.8 cm LVOT Peak Velocity 48.1 cm/s LVOT Peak Gradient 0.9 mmHg LVOT Velocity Time Integral 10.7 cm AV Area Cont Eq vti 1.4 cm AV Area Cont Eq pk 1.0 cm Mitral E Point Velocity 102.0 cm/s Mitral A Point Velocity 47.9 cm/s Mitral E to A Ratio 2.1 LV E' Lateral Velocity 7.1 cm/s Mitral E to LV E' Lateral Ratio 14.3 LV E' Septal Velocity 4.2 cm/s Mitral E to LV E' Septal Ratio 24.3 TR Peak Velocity 357.0 cm/s TR Peak Gradient 51.0 mmHg PV Peak Velocity 62.4 cm/s PV Peak Gradient 1.6 mmHg FINDINGS LEFT VENTRICLE Mildly dilated left ventricle. Wall thickness is normal. The left ventricular systolic function is s everely reduced with an estimated ejection fraction is 35%. There is global hypokinesis. RIGHT VENTRICLE Normal right ventricular size and systolic function. LEFT ATRIUM The left atrial size is moderately dilated. RIGHT ATRIUM The right atrial size is normal. ATRIAL SEPTUM Normal atrial septal thickness without atrial level shunting by limited color doppler interrogation. AORTA The aortic root and proximal ascending aorta are normal in size on limited imaging. MITRAL VALVE Trace mitral valve regurgitation. AORTIC VALVE Mild aortic valve calcification. TRICUSPID VALVE There is mild tricuspid valve regurgitation. The estimated systolic pulmonary pressure is 50-60 mmHg). PULMONARY VALVE The pulmonary valve is not well visualized. VESSELS The inferior vena cava is normal in size. PERICARDIUM A left sided pleural effusion is noted. Eduard Ramirez MD (Electronically Signed) Final Date:14 March 2017 16:59
[2017-03-14] MEDS: MELATONIN 5 MG TAB PO SCH (21:00)
[2017-03-14] MEDS: MORPHINE SULFATE 4 MG/ML INJ IV PUSH PRN (21:00)
[2017-03-14] MEDS: QUEtiapine FUMARATE 25 MG TAB PO SCH (21:01)
[2017-03-14] MEDS: ATORVASTATIN 40 MG TAB PO SCH (21:01)
[2017-03-14] MEDS: CARVEDILOL 6.25 MG TAB PO SCH (21:01)
[2017-03-15] VITALS (16 sets, daily range): BP systolic 123–172; BP diastolic 59–99; PULSE 67–124; RESP 12–23; TEMP 98.7–99.1; O2SAT 96–100
[2017-03-15] MEDS: SODIUM CHLOR 0.9% 1000 ML INJ 1,000 ML IV SCH ×2 (00:18→11:57)
[2017-03-15] MEDS: LEVOFLOXACIN 750 MG PREMIX INJ 150 ML IV SCH (00:18)
[2017-03-15] MEDS: AZTREONAM INJ 2,000 MG in SODIUM CHLORIDE 0.9% INJ 100 ML IV SCH ×3 (01:41→18:06)
[2017-03-15] MEDS: RESP: ALBUTEROL 2.5 MG/IPRATROPIUM 0.5 MG NEB (SCH) INH ×4 (03:44→22:05)
--- NOTE | 2017-03-15 06:11 | RADRPT ---
EXAM DATE/TIME: 03/15/2017 05:10 [facility] COMPARISON: CHEST SINGLE AP, March 13, 2017, 4:58. INDICATIONS : Evaluate CHF MEDICAL HISTORY : Chronic obstructive pulmonary disease. Hypertension SURGICAL HISTORY : CABG. Coronary artery stent. ENCOUNTER: Subsequent ACUITY: 3 days PAIN SCORE: Non-responsive. LOCATION: Bilateral chest FINDINGS: A single view of the chest demonstrates endotracheal tube in good position. Nasogastric tube enters s tomach. Right central line in superior vena cava. Postop median sternotomy. Basilar airspace disease and pleural effusions are slightly improved since March 13. CONCLUSION: 1. Slight improvement in basilar airspace disease and pleural effusion since March 13. Support ap paratus unchanged. Nilson Jeffries MD on March 15, 2017 at 6:09 Board Certified Radiologist. This report was verified electronically.
[2017-03-15] MEDS: LEVOTHYROXINE SODIUM 25 MCG TAB PO SCH (06:23)
[2017-03-15] MEDS: LEVOTHYROXINE SODIUM 112 MCG TAB PO SCH (06:23)
[2017-03-15] MEDS: methylPREDNISolone SOD SUCC 40 MG/1 ML VIAL IV PUSH SCH ×3 (06:23→21:07)
[2017-03-15 06:56] LABS: AUTOMATED NEUTROPHIL # 15.4 TH/MM3 (1.8-7.7); BASOPHIL % 0.1 % (0.0-2.0); HEMATOCRIT 31.2 % (39.0-51.0); HEMO FLAGS DIFF FINAL; LYMPH % 1.9 % (9.0-44.0); LYMPHOCYTE # 0.3 TH/MM3 (1.0-4.8); MEAN CELL VOLUME 75.8 FL (80.0-100.0); MEAN CORPUSCULAR HEMOGLOBIN 24.4 PG (27.0-34.0); MEAN CORPUSCULAR HGB CONC 32.1 % (32.0-36.0); MONO % 5.7 % (0.0-8.0); NEUT % 92.3 % (16.0-70.0); PLATELET COUNT 190 TH/MM3 (150-450); RED BLOOD COUNT 4.12 MIL/MM3 (4.50-5.90); RED CELL DISTRIBUTION WIDTH 22.5 % (11.6-17.2); WHITE BLOOD COUNT 16.6 TH/MM3 (4.0-11.0)
[2017-03-15 07:33] LABS: ALKALINE PHOSPHATASE 81 U/L (45-117); ALT (GPT) 31 U/L (12-78); ANION GAP 9 MEQ/L (5-15); AST (GOT) 16 U/L (15-37); BICARBONATE 25.4 MEQ/L (21.0-32.0); BLOOD UREA NITROGEN 48 MG/DL (7-18); CHLORIDE 110 MEQ/L (98-107); GLOMERULAR FILTRATION RATE 43 ML/MIN (>89); POTASSIUM 3.8 MEQ/L (3.5-5.1); SODIUM (NA) 144 MEQ/L (136-145); TOTAL BILIRUBIN ADULT 0.5 MG/DL (0.2-1.0)
[2017-03-15] MEDS: CHLORHEXIDINE 0.12% (ORAL KIT) 15 ML CUP MT SCH ×2 (08:00→20:00)
[2017-03-15] MEDS: DOCUSATE SODIUM 50 MG/SENNA 8.6 MG TAB PO SCH ×2 (08:27→21:07)
[2017-03-15] MEDS: SODIUM CHLORIDE 0.9% FLUSH 10 ML FLUSH SCH ×2 (08:27→21:00)
[2017-03-15] MEDS: RIVAROXABAN 20 MG TAB PO SCH (08:27)
[2017-03-15] MEDS: LACTOBACILLUS ACIDOPHILUS TAB PO SCH ×2 (08:27→21:06)
[2017-03-15] MEDS: FERROUS SULFATE 325 MG (65 MG ELEMENTAL IRON) TAB PO SCH (08:28)
[2017-03-15] MEDS: ASCORBIC ACID 500 MG TAB PO SCH ×2 (08:28→21:06)
[2017-03-15] MEDS: COLLAGENASE OINT 30 GM TUBE TOPICAL SCH (08:28)
[2017-03-15] MEDS: ASPIRIN EC 81 MG TABEC PO SCH (08:28)
[2017-03-15] MEDS: CARVEDILOL 6.25 MG TAB PO SCH ×2 (08:28→21:07)
[2017-03-15] MEDS: CHOLECALCIFEROL (VIT D3) 1000 UNIT TAB PO SCH (08:28)
[2017-03-15] MEDS: MULTIVITAMINS/MINERALS THERAPEUTIC TAB PO SCH (08:28)
[2017-03-15] MEDS: LOSARTAN 25 MG TAB PO SCH (08:28)
[2017-03-15] MEDS: ARTIFICIAL TEARS OPTH SOLN 15 ML BTL EACH EYE SCH ×3 (08:29→18:06)
[2017-03-15] MEDS: CARBAMIDE PEROXIDE 6.5% OTIC SOLN 15 ML BTL EACH EAR SCH ×2 (08:29→21:05)
[2017-03-15] MEDS: LACTIC ACID (AMMONIUM LACTATE) 12% LOTION 225 GM BTL TOPICAL SCH ×2 (08:29→21:08)
[2017-03-15] MEDS: FUROSEMIDE 20 MG/2 ML VIAL IV PUSH SCH ×2 (08:30→18:05)
[2017-03-15] MEDS: POVIDONE IODINE 10% OINT 1 PACKET TOPICAL SCH ×2 (08:31→21:00)
[2017-03-15] MEDS: prednisoLONE ACETATE 1% OPHT SUSP 5 ML BTL RIGHT EYE SCH ×2 (08:31→21:00)
--- NOTE | 2017-03-15 09:39 | HHI.CCPN ---
Subjective Remarks/Hospital Course 03/12: 66-year-old brought to the emergency department via EMS for shortness of breath. According to EMS [facility] when he became short of breath. He was placed on a BiPAP with no significant improvement. He was intubated in the emergency department by ED attending that also placed the subclavian line for an. IV access. 03/13: Remains sedated, orally intubated on mechanical ventilation. 03/14: Sedated, easily arousable, orally intubated on mechanical ventilation. 03/15: Awake and alert, orally intubated on mechanical ventilation. Objective Vital Signs Date Time Temp Pulse Resp B/P (MAP) Pulse Ox O2 Delivery O2 Flow Rate FiO2 03/15/17 08:42 99 Nasal Cannula 3 03/15/17 06:00 79 03/15/17 04:00 40 03/15/17 04:00 98.7 18 162/72 (102) Intake and Output 03/15/17 03/15/17 03/16/17 08:00 16:00 00:00 Intake Total 120 ml Output Total 850 ml Balance -730 ml Result Diagram: 03/15/1761603/15/17 06 Other Results Microbiology Date/Time Source Procedure Growth Status 03/12/17 21:25 Nasal Washing Influenza Types A,B Antigen (GABE) - Final NEGATIVE FOR FLU A AND B ANTIGEN.... Complete 03/12/17 21:22 Urine Catheterized Urine Legionella Antigen - Final PRESUMPTIVE NEGATIVE FOR LEGIONELLA P... Complete 03/12/17 21:22 Urine Catheterized Urine Streptococcus pneumoniae Antigen (M - Final PRESUMPTIVE NEGATIVE FOR STREPTOCOCCU... Complete Imaging Last Impressions Chest X-Ray 03/13/17 0600 Signed Impressions: Service Date/Time: February 04:58 - CONCLUSION: 1. Stable exam. Support apparatus in good position. Nilson Jeffries MD Objective Remarks GENERAL: Elderly gentleman orally intubated on [facility] vent SKIN: Warm and dry. HEAD: Normocephalic. EYES: No scleral icterus. No injection or drainage. NECK: Supple, trachea midline. No JVD or lymphadenopathy. Intubated CARDIOVASCULAR: Regular rate and rhythm without murmurs, gallops, or rubs. RESPIRATORY: Orally intubated on mechanical ventilation, Breath sounds equal bilaterally. No accessory muscle use. Scattered rhonchi bilaterally GASTROINTESTINAL: Abdomen soft, non-tender, nondistended. MUSCULOSKELETAL: No cyanosis, or edema. BACK: Nontender without obvious deformity. NEURO : Off sedation, easily arousable, following commands, moves both upper extremities. orally intubated on mechanical ventilation A/P Assessment and Plan Respiratory failure - Broad-spectrum antibiotic - Urine antigens - Panculture - Follow-up cultures and de-escalate per sensitivity - Mechanical ventilation, daily C Pap trials to decide extubation. - Vent bundle CAD NSTEMI CHF - acute coronary syndrome -Elevated troponin noted. Continue aspirin, beta kristopher. Diurese with IV lasix. Cardiology following. F/u 2D echo. Paroxysmal atrial fibrillation - Coreg for rate control - Xarelto Hypertension - Carvediol CKD stage III - With hyperkalemia without EKG change - Continue IV hydration - Strict I's and O's - Monitor trend Diabetes mellitus, type II - Insulin-dependent - Insulin sliding scale - Long-acting insulin on hold until tube feeds or diet started COPD - Exacerbation - DuoNeb scheduled and when necessary - Steroid Hypothyroidism - Levothyroxine Mood disorder - Quetiapine GERD - Pepcid History of DVT - Xarelto DVT GI prophylaxis - Teds SCDs - Xarelto - Pepcid Critical Care: The total critical care time was 35 minutes. Time to perform other separately billable procedures was not included in the critical care time. Young Deluca MD Mar 15, 2017 09:39
[2017-03-15] MEDS: hydrALAZINE HCL 20 MG/ML VIAL IV PRN (09:47)
[2017-03-15 10:05] LABS: BLOOD GAS BASE EXCESS -2.3 mmol/L (-2-2); BLOOD GAS CARBOXYHEMOGLOBIN 1.7 % (0-4); BLOOD GAS HCO3 22 mmol/L (22-26); BLOOD GAS METHEMOGLOBIN 1.1 % (0-2); BLOOD GAS O2 HGB SATURATION 94 % (90-100); BLOOD GAS OXYGEN CONTENT 15.7 Vol % (12.0-20.0); BLOOD GAS PCO2 36 mmHg (38-42); BLOOD GAS PO2 92 mmHg (61-120); BLOOD GAS TOTAL HGB 11.8 G/DL (12.0-16.0); CRITICAL VALUE NO; FIO2 40 %; OXYGEN DEVICE BIPAP15IPAP/5EPAP; TEMP CORR TO 98.6
[2017-03-15 10:06] LABS: DRAW SITE LT RADIAL; NUMBER OF ARTERIAL PUNCTURES 1; STAT NO; ULNAR PULSE PRESENT
[2017-03-15] MEDS: MORPHINE SULFATE 4 MG/ML INJ IV PUSH PRN ×4 (10:10→21:05)
[2017-03-15] MEDS: ALPRAZolam 0.25 MG TAB PO PRN ×2 (12:23→21:07)
[2017-03-15] MEDS ORDERED: FUROSEMIDE 40 MG/4 ML VIAL IV PUSH ONE (13:30)
[2017-03-15] MEDS ORDERED: DEXTROSE 50% IN WATER 50 ML VIAL(D50) IV PRN (18:30)
[2017-03-15] MEDS ORDERED: GLUCAGON 1 MG/ML VIAL IM/SQ PRN (18:30)
[2017-03-15] MEDS: MELATONIN 5 MG TAB PO SCH (21:06)
[2017-03-15] MEDS: ATORVASTATIN 40 MG TAB PO SCH (21:07)
[2017-03-15] MEDS: QUEtiapine FUMARATE 25 MG TAB PO SCH (21:07)
[2017-03-15] MEDS: INSULIN ASPART SUPPLEMENTAL SCALE SQ SCH (21:26)
[2017-03-16] VITALS (23 sets, daily range): BP systolic 144–171; BP diastolic 62–94; PULSE 62–93; RESP 15–20; TEMP 98.1–98.9; O2SAT 96–100
[2017-03-16] MEDS: AZTREONAM INJ 2,000 MG in SODIUM CHLORIDE 0.9% INJ 100 ML IV SCH ×3 (02:57→18:02)
[2017-03-16] MEDS: CHLORHEXIDINE GLUCONATE 2 % 1 PACK (2 CLOTHS) TOP SCH (04:00)
[2017-03-16] MEDS: INSULIN ASPART SUPPLEMENTAL SCALE SQ SCH ×6 (04:00→21:59)
[2017-03-16] MEDS: RESP: ALBUTEROL 2.5 MG/IPRATROPIUM 0.5 MG NEB (SCH) INH ×4 (04:50→20:36)
[2017-03-16] MEDS: LEVOTHYROXINE SODIUM 112 MCG TAB PO SCH (05:19)
[2017-03-16] MEDS: methylPREDNISolone SOD SUCC 40 MG/1 ML VIAL IV PUSH SCH ×3 (05:19→21:52)
[2017-03-16] MEDS: LEVOTHYROXINE SODIUM 25 MCG TAB PO SCH (05:19)
[2017-03-16] MEDS: CHLORHEXIDINE 0.12% (ORAL KIT) 15 ML CUP MT SCH ×2 (08:00→20:00)
[2017-03-16] MEDS: SODIUM CHLORIDE 0.9% FLUSH 10 ML FLUSH SCH ×2 (08:17→21:58)
[2017-03-16] MEDS: FUROSEMIDE 20 MG/2 ML VIAL IV PUSH SCH ×2 (08:17→18:02)
[2017-03-16] MEDS: CARBAMIDE PEROXIDE 6.5% OTIC SOLN 15 ML BTL EACH EAR SCH ×2 (08:17→22:00)
[2017-03-16] MEDS: LOSARTAN 25 MG TAB PO SCH (08:18)
[2017-03-16] MEDS: LACTOBACILLUS ACIDOPHILUS TAB PO SCH ×2 (08:18→21:53)
[2017-03-16] MEDS: CHOLECALCIFEROL (VIT D3) 1000 UNIT TAB PO SCH (08:18)
[2017-03-16] MEDS: MULTIVITAMINS/MINERALS THERAPEUTIC TAB PO SCH (08:18)
[2017-03-16] MEDS: DOCUSATE SODIUM 50 MG/SENNA 8.6 MG TAB PO SCH ×2 (08:18→21:55)
[2017-03-16] MEDS: FERROUS SULFATE 325 MG (65 MG ELEMENTAL IRON) TAB PO SCH (08:19)
[2017-03-16] MEDS: ASPIRIN EC 81 MG TABEC PO SCH (08:19)
[2017-03-16] MEDS: CARVEDILOL 6.25 MG TAB PO SCH ×2 (08:19→21:54)
[2017-03-16] MEDS: RIVAROXABAN 20 MG TAB PO SCH (08:19)
[2017-03-16] MEDS: ASCORBIC ACID 500 MG TAB PO SCH ×2 (08:19→21:53)
[2017-03-16] MEDS: ARTIFICIAL TEARS OPTH SOLN 15 ML BTL EACH EYE SCH ×3 (08:20→18:00)
[2017-03-16] MEDS: COLLAGENASE OINT 30 GM TUBE TOPICAL SCH (08:20)
[2017-03-16] MEDS: LACTIC ACID (AMMONIUM LACTATE) 12% LOTION 225 GM BTL TOPICAL SCH ×2 (08:21→22:01)
[2017-03-16] MEDS: POVIDONE IODINE 10% OINT 1 PACKET TOPICAL SCH ×2 (08:44→21:00)
[2017-03-16] MEDS: prednisoLONE ACETATE 1% OPHT SUSP 5 ML BTL RIGHT EYE SCH ×2 (08:44→21:00)
--- NOTE | 2017-03-16 13:16 | HHI.CCPN ---
Subjective Remarks/Hospital Course 03/12: 66-year-old brought to the emergency department via EMS for shortness of breath. According to EMS the patient was at the residential earlier today when he became short of breath. He was placed on a BiPAP with no significant improvement. He was intubated in the emergency department by ED attending that also placed the subclavian line for an. IV access. 03/13: Remains sedated, orally intubated on mechanical ventilation. 03/14: Sedated, easily arousable, orally intubated on mechanical ventilation. 03/15: Awake and alert, orally intubated on mechanical ventilation. 03/16: Awake and alert. Extubated yesterday. On nasal cannula currently. Hungry and wishes to eat. Requesting pain medications. Objective Vital Signs Date Time Temp Pulse Resp B/P (MAP) Pulse Ox O2 Delivery O2 Flow Rate FiO2 03/16/17 07:39 97 Nasal Cannula 3.00 03/16/17 06:00 70 03/16/17 04:00 98.8 15 145/67 (93) 03/15/17 09:51 40 Intake and Output 03/16/17 03/16/17 03/17/17 08:00 16:00 00:00 Intake Total 100 ml Output Total 1200 ml Balance -1100 ml Result Diagram: 03/15/1761603/15/17616 Imaging Last Impressions Chest X-Ray 03/13/17 06 Signed Impressions: Service Date/Time: February 04:58 - CONCLUSION: 1. Stable exam. Support apparatus in good position. Nilson Jeffries MD Objective Remarks GENERAL: Elderly gentleman laying in bed not in any acute distress. SKIN: Warm and dry. HEAD: Normocephalic. EYES: No scleral icterus. No injection or drainage. NECK: Supple, trachea midline. No JVD or lymphadenopathy. CARDIOVASCULAR: Regular rate and rhythm without murmurs, gallops, or rubs. RESPIRATORY: Breath sounds equal bilaterally. No accessory muscle use. Scattered rhonchi bilaterally GASTROINTESTINAL: Abdomen soft, non-tender, nondistended. MUSCULOSKELETAL: No cyanosis, or edema. BACK: Nontender without obvious deformity. NEURO : Awake alert oriented 3, nonfocal grossly A/P Assessment and Plan Respiratory failure - Broad-spectrum antibiotic - Urine antigens - Panculture - Follow-up cultures and de-escalate per sensitivity -Extubated following C Pap trial on 03/15, tolerating nasal cannula. CAD NSTEMI CHF - acute coronary syndrome -Elevated troponin noted. Continue aspirin, beta kristopher. Diurese with IV lasix. Cardiology following. F/u 2D echo. Paroxysmal atrial fibrillation - Coreg for rate control - Xarelto Hypertension - Carvediol CKD stage III - With hyperkalemia without EKG change - Continue IV hydration - Strict I's and O's - Monitor trend Diabetes mellitus, type II - Insulin-dependent -Resume 70/30 insulin home dose COPD - Exacerbation - DuoNeb scheduled and when necessary - Steroid Hypothyroidism - Levothyroxine Mood disorder - Quetiapine GERD - Pepcid History of DVT - Xarelto DVT GI prophylaxis - Teds SCDs - Xarelto - Pepcid Patient will be transferred to hospitalist service for further medical management. Transfer out of ICU. Critical care will be signing off. Please reconsult if needed. Young Deluca MD Mar 16, 2017 13:16
[2017-03-16] MEDS ORDERED: INSULIN HUMAN NPH/R 70/30 1,000 UNITS/10 ML VIAL SQ SCH (16:00)
[2017-03-16] MEDS: INSULIN HUMAN NPH/R 70/30 1,000 UNITS/10 ML VIAL SQ SCH (16:45)
[2017-03-16] MEDS ORDERED: INSULIN DEGLUDEC SQ SCH (21:00)
[2017-03-16] MEDS: MELATONIN 5 MG TAB PO SCH (21:53)
[2017-03-16] MEDS: ALPRAZolam 0.25 MG TAB PO PRN (21:54)
[2017-03-16] MEDS: ATORVASTATIN 40 MG TAB PO SCH (21:54)
[2017-03-16] MEDS: MORPHINE SULFATE 15 MG CONTROLLED RELEASE TAB PO SCH (22:00)
[2017-03-16] MEDS: QUEtiapine FUMARATE 25 MG TAB PO SCH (22:04)
[2017-03-17] VITALS (31 sets, daily range): BP systolic 153–170; BP diastolic 82–94; PULSE 70–90; RESP 16–18; TEMP 97.9–98.9; O2SAT 96–100
[2017-03-17] MEDS ORDERED: LEVOFLOXACIN 750 MG PREMIX INJ 150 ML IV SCH (01:00)
[2017-03-17] MEDS: INSULIN ASPART SUPPLEMENTAL SCALE SQ SCH ×7 (02:14→20:00)
[2017-03-17] MEDS: AZTREONAM INJ 2,000 MG in SODIUM CHLORIDE 0.9% INJ 100 ML IV SCH ×3 (02:18→17:00)
[2017-03-17] MEDS: RESP: ALBUTEROL 2.5 MG/IPRATROPIUM 0.5 MG NEB (SCH) INH (02:59)
[2017-03-17] MEDS: CHLORHEXIDINE GLUCONATE 2 % 1 PACK (2 CLOTHS) TOP SCH (04:00)
[2017-03-17] MEDS: ALPRAZolam 0.25 MG TAB PO PRN (05:54)
[2017-03-17] MEDS: LEVOTHYROXINE SODIUM 25 MCG TAB PO SCH (05:54)
[2017-03-17] MEDS: LEVOTHYROXINE SODIUM 112 MCG TAB PO SCH (05:54)
[2017-03-17] MEDS: methylPREDNISolone SOD SUCC 40 MG/1 ML VIAL IV PUSH SCH ×3 (05:55→22:00)
[2017-03-17 06:27] LABS: AUTOMATED NEUTROPHIL # 10.2 TH/MM3 (1.8-7.7); BASOPHIL % 0.1 % (0.0-2.0); HEMATOCRIT 30.3 % (39.0-51.0); HEMO FLAGS DIFF FINAL; LYMPHOCYTE # 0.3 TH/MM3 (1.0-4.8); MEAN CELL VOLUME 76.9 FL (80.0-100.0); MEAN CORPUSCULAR HGB CONC 32.5 % (32.0-36.0); MONO % 2.5 % (0.0-8.0); NEUT % 94.4 % (16.0-70.0); PLATELET COUNT 169 TH/MM3 (150-450); RED BLOOD COUNT 3.94 MIL/MM3 (4.50-5.90); RED CELL DISTRIBUTION WIDTH 21.4 % (11.6-17.2); WHITE BLOOD COUNT 10.8 TH/MM3 (4.0-11.0)
[2017-03-17 06:53] LABS: ANION GAP 8 MEQ/L (5-15); AST (GOT) 23 U/L (15-37); BICARBONATE 30.1 MEQ/L (21.0-32.0); BLOOD UREA NITROGEN 54 MG/DL (7-18); CHLORIDE 109 MEQ/L (98-107); GLOMERULAR FILTRATION RATE 60 ML/MIN (>89); MAGNESIUM 2.3 MG/DL (1.5-2.5); POTASSIUM 3.9 MEQ/L (3.5-5.1); SODIUM (NA) 147 MEQ/L (136-145)
[2017-03-17 06:54] LABS: ALT (GPT) 37 U/L (12-78)
[2017-03-17 07:02] LABS: ALKALINE PHOSPHATASE 94 U/L (45-117); FREE T4 0.88 NG/DL (0.76-1.46); TOTAL BILIRUBIN ADULT 0.5 MG/DL (0.2-1.0)
[2017-03-17] MEDS: CHLORHEXIDINE 0.12% (ORAL KIT) 15 ML CUP MT SCH ×2 (08:00→20:00)
[2017-03-17] MEDS: INSULIN HUMAN NPH/R 70/30 1,000 UNITS/10 ML VIAL SQ SCH ×2 (08:15→16:45)
[2017-03-17] MEDS: FERROUS SULFATE 325 MG (65 MG ELEMENTAL IRON) TAB PO SCH (08:39)
[2017-03-17] MEDS: ASPIRIN EC 81 MG TABEC PO SCH (08:39)
[2017-03-17] MEDS: ASCORBIC ACID 500 MG TAB PO SCH ×2 (08:39→21:00)
[2017-03-17] MEDS: MULTIVITAMINS/MINERALS THERAPEUTIC TAB PO SCH (08:40)
[2017-03-17] MEDS: RIVAROXABAN 20 MG TAB PO SCH (08:40)
[2017-03-17] MEDS: LOSARTAN 25 MG TAB PO SCH (08:40)
[2017-03-17] MEDS: DOCUSATE SODIUM 50 MG/SENNA 8.6 MG TAB PO SCH ×2 (08:40→21:00)
[2017-03-17] MEDS: CALCITRIOL 0.25 MCG CAP PO SCH (08:40)
[2017-03-17] MEDS: FUROSEMIDE 20 MG/2 ML VIAL IV PUSH SCH (08:41)
[2017-03-17] MEDS: CARVEDILOL 6.25 MG TAB PO SCH ×2 (08:41→21:00)
[2017-03-17] MEDS: SODIUM CHLORIDE 0.9% FLUSH 10 ML FLUSH SCH ×2 (08:41→21:00)
[2017-03-17] MEDS: ARTIFICIAL TEARS OPTH SOLN 15 ML BTL EACH EYE SCH ×3 (08:42→17:00)
[2017-03-17] MEDS: CARBAMIDE PEROXIDE 6.5% OTIC SOLN 15 ML BTL EACH EAR SCH ×2 (08:42→21:00)
[2017-03-17] MEDS: COLLAGENASE OINT 30 GM TUBE TOPICAL SCH (08:43)
[2017-03-17] MEDS: LACTIC ACID (AMMONIUM LACTATE) 12% LOTION 225 GM BTL TOPICAL SCH ×2 (08:43→21:00)
[2017-03-17] MEDS: POVIDONE IODINE 10% OINT 1 PACKET TOPICAL SCH ×2 (09:00→21:00)
--- NOTE | 2017-03-17 09:41 | PD.CARD.PN ---
Subjective Subjective Remarks feeling better sitting up and eating with no difficulties Objective Vital Signs / I&O Vital Signs Date Time Temp Pulse Resp B/P (MAP) Pulse Ox O2 Delivery O2 Flow Rate FiO2 03/17/17 08:37 98.2 79 16 166/90 (115) 99 03/17/17 07:32 100 Nasal Cannula 3.00 03/17/17 07:00 79 03/17/17 06:00 83 03/17/17 05:52 98.4 83 18 170/90 (116) 98 03/17/17 05:00 72 03/17/17 04:00 75 03/17/17 03:00 74 03/17/17 02:00 70 03/17/17 01:00 76 03/17/17 00:29 98.2 84 18 159/85 (109) 98 03/17/17 00:00 76 03/16/17 23:00 84 03/16/17 23:00 16 03/16/17 22:00 80 03/16/17 20:39 98 Nasal Cannula 3.00 03/16/17 20:00 76 03/16/17 20:00 98.1 78 20 145/94 (111) 97 03/16/17 19:00 82 03/16/17 18:00 93 03/16/17 17:00 77 03/16/17 16:00 80 03/16/17 16:00 98.4 80 20 171/71 (104) 97 03/16/17 15:00 84 03/16/17 14:00 86 03/16/17 13:00 79 03/16/17 12:00 70 03/16/17 12:00 98.2 70 18 148/67 (94) 98 03/16/17 11:00 75 03/16/17 10:00 68 I/O 03/16/17 03/16/17 03/16/17 03/17/17 03/17/17 03/17/17 07:00 15:00 23:00 07:00 15:00 23:00 Intake Total 100 ml 200 ml 1690 ml Output Total 1200 ml 1800 ml 1700 ml Balance -1100 ml -1600 ml -10 ml Intake Oral 1240 ml IV Total 100 ml 200 ml 450 ml Output Urine Total 1200 ml 1800 ml 1700 ml Stool Total 0 ml # Bowel Movements 0 1 Physical Exam heart s1s2 regular lung on vent abdomen free ext dermatitis Laboratory Laboratory Tests Test 03/17/17 06:00 White Blood Count 10.8 TH/MM3 Red Blood Count 3.94 MIL/MM3 Hemoglobin 9.9 GM/DL Hematocrit 30.3 % Mean Corpuscular Volume 76.9 FL Mean Corpuscular Hemoglobin 25.0 PG Mean Corpuscular Hemoglobin Concent 32.5 % Red Cell Distribution Width 21.4 % Platelet Count 169 TH/MM3 Mean Platelet Volume 8.5 FL Neutrophils (%) (Auto) 94.4 % Lymphocytes (%) (Auto) 3.0 % Monocytes (%) (Auto) 2.5 % Eosinophils (%) (Auto) 0.0 % Basophils (%) (Auto) 0.1 % Neutrophils # (Auto) 10.2 TH/MM3 Lymphocytes # (Auto) 0.3 TH/MM3 Monocytes # (Auto) 0.3 TH/MM3 Eosinophils # (Auto) 0.0 TH/MM3 Basophils # (Auto) 0.0 TH/MM3 CBC Comment DIFF FINAL Differential Comment Blood Urea Nitrogen 54 MG/DL Creatinine 1.20 MG/DL Random Glucose 148 MG/DL Total Protein 6.2 GM/DL Albumin 2.3 GM/DL Calcium Level 7.9 MG/DL Phosphorus Level 3.4 MG/DL Magnesium Level 2.3 MG/DL Alkaline Phosphatase 94 U/L Aspartate Amino Transf (AST/SGOT) 23 U/L Alanine Aminotransferase (ALT/SGPT) 37 U/L Total Bilirubin 0.5 MG/DL Sodium Level 147 MEQ/L Potassium Level 3.9 MEQ/L Chloride Level 109 MEQ/L Carbon Dioxide Level 30.1 MEQ/L Anion Gap 8 MEQ/L Estimat Glomerular Filtration Rate 60 ML/MIN Free Thyroxine 0.88 NG/DL Thyroid Stimulating Hormone 3rd Gen 0.927 uIU/ML Assessment and Plan Assessment and Plan continue supportive care bp control adjust meds possibly change lasix to po by am creatinine and troponins down patient wants to go home continue medical management last heart cath was about 1 year ago will try get record Hiwot Mckinley MD Mar 17, 2017 09:41
--- NOTE | 2017-03-17 10:10 | HHI.PR ---
Subjective Remarks Follow up respiratory failure, ACS. Patient has no complaints at this time. Denies chest pain, dyspnea, cough. Wants to go home. Objective Vitals Vital Signs Date Time Temp Pulse Resp B/P (MAP) Pulse Ox O2 Delivery O2 Flow Rate FiO2 03/17/17 08:37 98.2 79 16 166/90 (115) 99 03/17/17 07:32 100 Nasal Cannula 3.00 03/17/17 07:00 79 03/17/17 06:00 83 03/17/17 05:52 98.4 83 18 170/90 (116) 98 03/17/17 05:00 72 03/17/17 04:00 75 03/17/17 03:00 74 03/17/17 02:00 70 03/17/17 01:00 76 03/17/17 00:29 98.2 84 18 159/85 (109) 98 03/17/17 00:00 76 03/16/17 23:00 84 03/16/17 23:00 16 03/16/17 22:00 80 03/16/17 20:39 98 Nasal Cannula 3.00 03/16/17 20:00 76 03/16/17 20:00 98.1 78 20 145/94 (111) 97 03/16/17 19:00 82 03/16/17 18:00 93 03/16/17 17:00 77 03/16/17 16:00 80 03/16/17 16:00 98.4 80 20 171/71 (104) 97 03/16/17 15:00 84 03/16/17 14:00 86 03/16/17 13:00 79 03/16/17 12:00 70 03/16/17 12:00 98.2 70 18 148/67 (94) 98 03/16/17 11:00 75 I/O 03/16/17 03/16/17 03/16/17 03/17/17 03/17/17 03/17/17 07:00 15:00 23:00 07:00 15:00 23:00 Intake Total 100 ml 200 ml 1690 ml Output Total 1200 ml 1800 ml 1700 ml Balance -1100 ml -1600 ml -10 ml Intake Oral 1240 ml IV Total 100 ml 200 ml 450 ml Output Urine Total 1200 ml 1800 ml 1700 ml Stool Total 0 ml # Bowel Movements 0 1 Result Diagram: 10/2/17 0600 10/2/17 06 Imaging Last Impressions Chest X-Ray 03/15/17599 Signed Impressions: Service Date/Time: Wednesday, March 15, 2017 05:10 - CONCLUSION: 1. Slight improvement in basilar airspace disease and pleural effusion since March 13. Support apparatus unchanged. Nilson Jeffries MD Objective Remarks General: No acute distress. Heart: Regular rate and rhythm. No murmur. Lungs: Scattered rhonchi. Breathing is nonlabored. Abdomen: Soft, nontender, nondistended. Extremities: No lower extremity edema. Psych: Alert and oriented. Urinary Catheter: Yes Assessment to: Remove Vascular Central Line Catheter: Yes Assessment to: Continue Line: Central Venous Catheter A/P Problem List: (1) Respiratory failure requiring intubation ICD Code: J96.90 - Respiratory failure, unspecified, unspecified whether with hypoxia or hypercapnia Status: Acute (2) Pulmonary edema ICD Code: J81.1 - Pulmonary edema Status: Acute (3) Non-STEMI (non-ST elevated myocardial infarction) ICD Code: I21.4 - Non-ST elevation (NSTEMI) myocardial infarction Status: Acute (4) Acute on chronic systolic (congestive) heart failure ICD Code: I50.23 - Acute on chronic systolic (congestive) heart failure (5) Hypothyroidism ICD Code: E03.9 - Hypothyroidism, unspecified Status: Chronic (6) CAD (coronary artery disease) ICD Code: I25.10 - Atherosclerosis of coronary artery Status: Chronic (7) Hyperlipidemia ICD Code: E78.5 - Hyperlipidemia Status: Chronic Assessment and Plan 1. Acute respiratory failure: Improved. Patient extubated on 03/15/17. Tolerating oxygen per nasal cannula. Continue diuretics, bronchodilators. 2. NSTEMI, CAD, acute on chronic systolic congestive heart failure: Appreciate cardiology recommendations. Continue diuresis with Lasix. Continue aspirin, beta kristopher. Troponin elevated. 3. Hypertension: Continue carvedilol. 4. Chronic kidney disease stage III: Continue gentle IV fluid hydration. Monitor strict intake/output. 5. Diabetes mellitus, type II: Insulin-dependent. Continue 70/30 insulin. Monitor Accu-Cheks and cover with sliding scale insulin. 6. COPD exacerbation: Continue DuoNeb, steroids. 7. Hypothyroidism: Continue levothyroxine. 8. Mood disorder: Continue quetiapine. 9. GERD: Pepcid. 10. DVT prophylaxis: SCDs, Avis Mya. Discharge Planning Possible discharge home soon, when cleared by cardiology. Problem Qualifiers (1) Pulmonary edema: Qualified Codes: J81.0 - Acute pulmonary edema Mateo Wolfe MD Mar 17, 2017 10:10
[2017-03-17] MEDS: RESP: ALBUTEROL 2.5 MG/IPRATROPIUM 0.5 MG NEB (SCH) NEB ×3 (11:50→19:53)
[2017-03-17] MEDS: amLODIPine BESYLATE 5 MG TAB PO SCH (12:03)
[2017-03-17] MEDS: MORPHINE SULFATE 15 MG CONTROLLED RELEASE TAB PO SCH ×2 (12:03→21:00)
[2017-03-17] MEDS: LACTOBACILLUS ACIDOPHILUS TAB PO SCH ×2 (12:04→21:00)
[2017-03-17] MEDS: prednisoLONE ACETATE 1% OPHT SUSP 5 ML BTL RIGHT EYE SCH ×2 (12:04→21:00)
[2017-03-17] MEDS: CHOLECALCIFEROL (VIT D3) 1000 UNIT TAB PO SCH (12:04)
[2017-03-17 16:01] LABS: HEMOGLOBIN A1b 2.3 %; HEMOGLOBIN Ao 81.6 %; HEMOGLOBIN LA1C 2.6 %; HEMOGLOBIN P3 6.2 %
[2017-03-17] MEDS: FUROSEMIDE 20 MG TAB PO SCH (17:01)
[2017-03-17] MEDS: QUEtiapine FUMARATE 25 MG TAB PO SCH (21:00)
[2017-03-17] MEDS: ATORVASTATIN 40 MG TAB PO SCH (21:00)
[2017-03-17] MEDS: MELATONIN 5 MG TAB PO SCH (21:00)
[2017-03-18] VITALS (30 sets, daily range): BP systolic 128–172; BP diastolic 70–80; PULSE 58–95; RESP 17–22; TEMP 97.3–98.2; O2SAT 92–98
[2017-03-18] MEDS: AZTREONAM INJ 2,000 MG in SODIUM CHLORIDE 0.9% INJ 100 ML IV SCH ×3 (02:00→17:40)
[2017-03-18] MEDS: INSULIN ASPART SUPPLEMENTAL SCALE SQ SCH ×5 (04:00→20:00)
[2017-03-18] MEDS: CHLORHEXIDINE GLUCONATE 2 % 1 PACK (2 CLOTHS) TOP SCH (04:00)
[2017-03-18] MEDS: LEVOTHYROXINE SODIUM 112 MCG TAB PO SCH (04:56)
[2017-03-18] MEDS: LEVOTHYROXINE SODIUM 25 MCG TAB PO SCH (04:56)
[2017-03-18] MEDS: methylPREDNISolone SOD SUCC 40 MG/1 ML VIAL IV PUSH SCH ×3 (04:56→20:41)
[2017-03-18 05:43] LABS: AUTOMATED NEUTROPHIL # 11.2 TH/MM3 (1.8-7.7); BASOPHIL % 0.1 % (0.0-2.0); HEMATOCRIT 30.1 % (39.0-51.0); HEMO FLAGS DIFF FINAL; LYMPH % 3.7 % (9.0-44.0); LYMPHOCYTE # 0.5 TH/MM3 (1.0-4.8); MEAN CELL VOLUME 76.4 FL (80.0-100.0); MEAN CORPUSCULAR HEMOGLOBIN 24.2 PG (27.0-34.0); MEAN CORPUSCULAR HGB CONC 31.6 % (32.0-36.0); MONO % 4.3 % (0.0-8.0); NEUT % 91.9 % (16.0-70.0); PLATELET COUNT 189 TH/MM3 (150-450); RED BLOOD COUNT 3.94 MIL/MM3 (4.50-5.90); RED CELL DISTRIBUTION WIDTH 21.4 % (11.6-17.2); WHITE BLOOD COUNT 12.2 TH/MM3 (4.0-11.0)
[2017-03-18 06:03] LABS: BICARBONATE 31.3 MEQ/L (21.0-32.0)
[2017-03-18] MEDS: RESP: ALBUTEROL 2.5 MG/IPRATROPIUM 0.5 MG NEB (SCH) NEB ×3 (07:53→19:51)
[2017-03-18] MEDS: INSULIN HUMAN NPH/R 70/30 1,000 UNITS/10 ML VIAL SQ SCH ×2 (08:30→17:40)
[2017-03-18] MEDS: CHLORHEXIDINE 0.12% (ORAL KIT) 15 ML CUP MT SCH ×2 (09:20→20:00)
[2017-03-18] MEDS: LOSARTAN 25 MG TAB PO SCH (10:20)
[2017-03-18] MEDS: RIVAROXABAN 20 MG TAB PO SCH (10:20)
[2017-03-18] MEDS: ASCORBIC ACID 500 MG TAB PO SCH ×2 (10:21→20:41)
[2017-03-18] MEDS: DOCUSATE SODIUM 50 MG/SENNA 8.6 MG TAB PO SCH ×2 (10:21→20:41)
[2017-03-18] MEDS: amLODIPine BESYLATE 5 MG TAB PO SCH (10:21)
[2017-03-18] MEDS: MULTIVITAMINS/MINERALS THERAPEUTIC TAB PO SCH (10:21)
[2017-03-18] MEDS: FUROSEMIDE 20 MG TAB PO SCH ×2 (10:21→17:40)
[2017-03-18] MEDS: CHOLECALCIFEROL (VIT D3) 1000 UNIT TAB PO SCH (10:21)
[2017-03-18] MEDS: LACTOBACILLUS ACIDOPHILUS TAB PO SCH ×2 (10:22→20:41)
[2017-03-18] MEDS: ASPIRIN EC 81 MG TABEC PO SCH (10:22)
[2017-03-18] MEDS: MORPHINE SULFATE 15 MG CONTROLLED RELEASE TAB PO SCH ×2 (10:22→20:42)
[2017-03-18] MEDS: FERROUS SULFATE 325 MG (65 MG ELEMENTAL IRON) TAB PO SCH (10:22)
[2017-03-18] MEDS: CARVEDILOL 6.25 MG TAB PO SCH ×2 (10:22→20:41)
[2017-03-18] MEDS: COLLAGENASE OINT 30 GM TUBE TOPICAL SCH (10:23)
[2017-03-18] MEDS: SODIUM CHLORIDE 0.9% FLUSH 10 ML FLUSH SCH ×2 (10:23→20:44)
[2017-03-18] MEDS: ARTIFICIAL TEARS OPTH SOLN 15 ML BTL EACH EYE SCH ×3 (10:23→17:40)
[2017-03-18] MEDS: CARBAMIDE PEROXIDE 6.5% OTIC SOLN 15 ML BTL EACH EAR SCH ×3 (10:23→20:43)
[2017-03-18] MEDS: prednisoLONE ACETATE 1% OPHT SUSP 5 ML BTL RIGHT EYE SCH ×2 (10:24→20:43)
[2017-03-18] MEDS: POVIDONE IODINE 10% OINT 1 PACKET TOPICAL SCH ×2 (10:25→20:43)
[2017-03-18] MEDS: LACTIC ACID (AMMONIUM LACTATE) 12% LOTION 225 GM BTL TOPICAL SCH ×2 (10:26→20:43)
--- NOTE | 2017-03-18 10:29 | HHI.PR ---
Subjective Remarks Follow up respiratory failure, ACS. Patient reports cough "all night" productive of dark sputum. No dyspnea, chest pain. Objective Vitals Vital Signs Date Time Temp Pulse Resp B/P (MAP) Pulse Ox O2 Delivery O2 Flow Rate FiO2 03/18/17 09:00 78 03/18/17 08:30 97.3 67 22 163/76 (105) 96 03/18/17 08:00 72 03/18/17 07:55 96 03/18/17 07:03 74 03/18/17 06:00 64 03/18/17 05:00 66 03/18/17 04:36 98.0 68 17 128/70 (89) 98 03/18/17 04:00 62 03/18/17 03:00 84 03/18/17 02:00 74 03/18/17 01:00 70 03/18/17 01:00 98.2 74 17 157/79 (105) 98 03/18/17 00:00 72 03/17/17 23:00 79 03/17/17 22:01 18 03/17/17 22:00 84 03/17/17 21:00 84 03/17/17 20:00 84 03/17/17 19:55 96 Nasal Cannula 2.00 03/17/17 19:55 98.3 84 17 153/82 (105) 98 03/17/17 19:00 88 03/17/17 18:00 70 03/17/17 17:00 74 03/17/17 16:00 77 03/17/17 15:33 98.9 81 17 155/94 (114) 98 03/17/17 15:00 84 03/17/17 14:00 90 03/17/17 13:00 80 03/17/17 12:07 97.9 83 17 158/86 (110) 96 03/17/17 12:00 74 03/17/17 11:00 83 I/O 03/17/17 03/17/17 03/17/17 03/18/17 03/18/17 03/18/17 07:00 15:00 23:00 07:00 15:00 23:00 Intake Total 1690 ml 480 ml Output Total 1700 ml 1200 ml 800 ml Balance -10 ml -1200 ml -320 ml Intake Oral 1240 ml 480 ml IV Total 450 ml Output Urine Total 1700 ml 1200 ml 800 ml Stool Total 0 ml Result Diagram: 03/18/1715 03/18/17 0515 Imaging Last Impressions Chest X-Ray 03/15/17 0600 Signed Impressions: Service Date/Time: Wednesday, March 15, 2017 05:10 - CONCLUSION: 1. Slight improvement in basilar airspace disease and pleural effusion since March 13. Support apparatus unchanged. Nilson Jeffries MD Objective Remarks General: No acute distress. Heart: Regular rate and rhythm. No murmur. Lungs: Scattered rhonchi. Breath sounds decreased in both bases. Breathing is nonlabored. Abdomen: Soft, nontender, nondistended. Extremities: Trace bilateral lower extremity edema. Wounds on both feet. Psych: Alert and oriented. Procedures 03/12/17 central line placement Urinary Catheter: No Line: Central Venous Catheter Side: Right Location: Subclavian A/P Problem List: (1) Respiratory failure requiring intubation ICD Code: J96.90 - Respiratory failure, unspecified, unspecified whether with hypoxia or hypercapnia Status: Acute (2) Pulmonary edema ICD Code: J81.1 - Pulmonary edema Status: Acute (3) Non-STEMI (non-ST elevated myocardial infarction) ICD Code: I21.4 - Non-ST elevation (NSTEMI) myocardial infarction Status: Acute (4) Acute on chronic systolic (congestive) heart failure ICD Code: I50.23 - Acute on chronic systolic (congestive) heart failure (5) Hypothyroidism ICD Code: E03.9 - Hypothyroidism, unspecified Status: Chronic (6) CAD (coronary artery disease) ICD Code: I25.10 - Atherosclerosis of coronary artery Status: Chronic (7) Hyperlipidemia ICD Code: E78.5 - Hyperlipidemia Status: Chronic Assessment and Plan 1. Acute respiratory failure: Improved. Patient extubated on 03/15/17. Tolerating room air this morning. Continue diuretics, bronchodilators. 2. NSTEMI, CAD, acute on chronic systolic congestive heart failure: Appreciate cardiology recommendations. Continue diuresis with Lasix. Continue aspirin, beta kristopher. Troponin elevated. 3. Hypertension: Continue carvedilol. 4. Chronic kidney disease stage III: Continue gentle IV fluid hydration. Monitor strict intake/output. 5. Diabetes mellitus, type II: Insulin-dependent. Continue 70/30 insulin. Monitor Accu-Cheks and cover with sliding scale insulin. Low glucose this morning. 6. COPD exacerbation: Continue DuoNeb, steroids. Patient has cough, decreased breath sounds in the bases. Check chest x-ray. 7. Hypothyroidism: Continue levothyroxine. 8. Mood disorder: Continue quetiapine. 9. GERD: Pepcid. 10. DVT prophylaxis: SCDs, Avis May. Discharge Planning Possible discharge home soon, when cleared by cardiology. Problem Qualifiers (1) Pulmonary edema: Qualified Codes: J81.0 - Acute pulmonary edema Mateo Wolfe MD Mar 18, 2017 10:29
--- NOTE | 2017-03-18 12:00 | RADRPT ---
EXAM DATE/TIME: 03/18/2017 11:07 [facility] COMPARISON: CHEST SINGLE AP, March 15, 2017, 5:10. INDICATIONS : Cough. MEDICAL HISTORY : Chronic obstructive pulmonary disease. Hypertension Diabetes mellitus type II. SURGICAL HISTORY : CABG. Coronary artery stent. ENCOUNTER: Subsequent ACUITY: 4 - 6 days PAIN SCORE: 0/10 LOCATION: Bilateral chest FINDINGS: The cardiac silhouette is normal in transverse diameter. Median sternotomy wires are present. A right sided subclavian right vein catheter is in place without pneumothorax with its tip in the superior v enma cava. There is left lower lobe atelectasis versus pneumonia. There is prominence of the central p ulmonary vasculature with indistinct vascular margins compatible with vascular congestion but no evid ence of overt failure. The findings have improved when compared with the prior exam. CONCLUSION: 1. Cardiomegaly and findings of vascular congestion without overt failure. The findings are improved when compared with the prior exam. 2. Left lower lobe atelectasis versus pneumonia. Moi Patterson MD on March 18, 2017 at 11:59 Board Certified Radiologist. This report was verified electronically.
[2017-03-18] MEDS: LEVOFLOXACIN 750 MG PREMIX INJ 150 ML IV SCH (15:08)
--- NOTE | 2017-03-18 18:00 | PD.CARD.PN ---
Objective Vital Signs / I&O Vital Signs Date Time Temp Pulse Resp B/P (MAP) Pulse Ox O2 Delivery O2 Flow Rate FiO2 03/18/17 14:07 76 03/18/17 13:00 82 03/18/17 12:04 88 03/18/17 11:15 97.8 80 20 172/80 (110) 95 03/18/17 11:00 81 03/18/17 10:00 76 03/18/17 09:00 78 03/18/17 08:30 97.3 67 22 163/76 (105) 96 03/18/17 08:00 72 03/18/17 07:55 96 03/18/17 07:03 74 03/18/17 06:00 64 03/18/17 05:00 66 03/18/17 04:36 98.0 68 17 128/70 (89) 98 03/18/17 04:00 62 03/18/17 03:00 84 03/18/17 02:00 74 03/18/17 01:00 70 03/18/17 01:00 98.2 74 17 157/79 (105) 98 03/18/17 00:00 72 03/17/17 23:00 79 03/17/17 22:01 18 03/17/17 22:00 84 03/17/17 21:00 84 03/17/17 20:00 84 03/17/17 19:55 96 Nasal Cannula 2.00 03/17/17 19:55 98.3 84 17 153/82 (105) 98 03/17/17 19:00 88 03/17/17 18:00 70 I/O 03/17/17 03/17/17 03/17/17 03/18/17 03/18/17 03/18/17 07:00 15:00 23:00 07:00 15:00 23:00 Intake Total 1690 ml 480 ml 95 ml Output Total 1700 ml 1200 ml 800 ml Balance -10 ml -1200 ml -320 ml 95 ml Intake Oral 1240 ml 480 ml IV Total 450 ml 95 ml Output Urine Total 1700 ml 1200 ml 800 ml Stool Total 0 ml Physical Exam heart s1s2 regular lung on vent abdomen free ext dermatitis Laboratory Laboratory Tests Test 03/18/17 05:15 White Blood Count 12.2 TH/MM3 Red Blood Count 3.94 MIL/MM3 Hemoglobin 9.5 GM/DL Hematocrit 30.1 % Mean Corpuscular Volume 76.4 FL Mean Corpuscular Hemoglobin 24.2 PG Mean Corpuscular Hemoglobin Concent 31.6 % Red Cell Distribution Width 21.4 % Platelet Count 189 TH/MM3 Mean Platelet Volume 8.1 FL Neutrophils (%) (Auto) 91.9 % Lymphocytes (%) (Auto) 3.7 % Monocytes (%) (Auto) 4.3 % Eosinophils (%) (Auto) 0.0 % Basophils (%) (Auto) 0.1 % Neutrophils # (Auto) 11.2 TH/MM3 Lymphocytes # (Auto) 0.5 TH/MM3 Monocytes # (Auto) 0.5 TH/MM3 Eosinophils # (Auto) 0.0 TH/MM3 Basophils # (Auto) 0.0 TH/MM3 CBC Comment DIFF FINAL Differential Comment Blood Urea Nitrogen 54 MG/DL Creatinine 1.08 MG/DL Random Glucose 58 MG/DL Calcium Level 8.2 MG/DL Sodium Level 146 MEQ/L Potassium Level 4.0 MEQ/L Chloride Level 109 MEQ/L Carbon Dioxide Level 31.3 MEQ/L Anion Gap 6 MEQ/L Estimat Glomerular Filtration Rate 68 ML/MIN Assessment and Plan Assessment and Plan continue supportive care bp control adjust meds patient wants to go home continue medical management last heart cath was about 1 year ago will try get record patent grafts and gallardo as of last year cath possible pneumonia bp need control will adjust meds medical management for now when stable could possibly go home for follow up as outpatient antibiotics might need be changed Hiwot Mckinley MD Mar 18, 2017 18:00
[2017-03-18] MEDS: ATORVASTATIN 40 MG TAB PO SCH (20:42)
[2017-03-18] MEDS: QUEtiapine FUMARATE 25 MG TAB PO SCH (20:42)
[2017-03-18] MEDS: MELATONIN 5 MG TAB PO SCH (20:42)
[2017-03-19] VITALS (19 sets, daily range): BP systolic 111–163; BP diastolic 49–86; PULSE 52–82; RESP 16–20; TEMP 97–98.1; O2SAT 94–97
[2017-03-19] MEDS: AZTREONAM INJ 2,000 MG in SODIUM CHLORIDE 0.9% INJ 100 ML IV SCH ×2 (01:59→10:30)
[2017-03-19] MEDS: INSULIN ASPART SUPPLEMENTAL SCALE SQ SCH ×5 (03:24→16:00)
[2017-03-19] MEDS: CHLORHEXIDINE GLUCONATE 2 % 1 PACK (2 CLOTHS) TOP SCH (04:00)
[2017-03-19] MEDS: methylPREDNISolone SOD SUCC 40 MG/1 ML VIAL IV PUSH SCH ×2 (05:53→13:22)
[2017-03-19] MEDS: LEVOTHYROXINE SODIUM 112 MCG TAB PO SCH (05:53)
[2017-03-19] MEDS: LEVOTHYROXINE SODIUM 25 MCG TAB PO SCH (05:53)
--- NOTE | 2017-03-19 06:39 | RADRPT ---
EXAM DATE/TIME: 03/19/2017 06:27 [facility] COMPARISON: CHEST SINGLE AP, March 18, 2017, 11:07. CT THORAX W/O CONTRAST, July 10, 2014, 16:13. INDICATIONS : Pneumonia. RADIATION DOSE: 6.55 CTDIvol (mGy) MEDICAL HISTORY : Cardiovascular disease. Chronic obstructive pulmonary disease. Diverticulitis. Hypertension. DVT. Con gestive heart failure. Myocardial infarction. GERD. Diabetes. Liver disease. SURGICAL HISTORY : CABG ENCOUNTER: Initial ACUITY: 1 day PAIN SCALE: 0/10 LOCATION: chest TECHNIQUE: Volumetric scanning of the chest was performed. Using automated exposure control and adjustment of t he mA and/or kV according to patient size, radiation dose was kept as low as reasonably achievable to obtain optimal diagnostic quality images. DICOM format image data is available electronically for r eview and comparison. Follow-up recommendations for detected pulmonary nodules are based at a minimum on nodule size and pa tient risk factors according to Fleischner Society Guidelines. FINDINGS: Small moderate bilateral pleural effusions are present. There is compressive/dependent atelectasis of both lower lobes. No pneumonic infiltrates seen. There is no pneumothorax. Mild cardiomegaly again noted, mostly left ventricular enlargement. Patient has had previous median s ternotomy. No mediastinal, hilar or axillary lymphadenopathy. CONCLUSION: Small to moderate pleural effusions with bibasilar atelectasis. No acute pulmonary edema seen. No pne umonic infiltrates seen. Ap Aguayo MD on March 19, 2017 at 6:35 Board Certified Radiologist. This report was verified electronically.
[2017-03-19] MEDS: RESP: ALBUTEROL 2.5 MG/IPRATROPIUM 0.5 MG NEB (SCH) NEB ×3 (07:54→15:59)
[2017-03-19] MEDS: CHLORHEXIDINE 0.12% (ORAL KIT) 15 ML CUP MT SCH (08:00)
[2017-03-19] MEDS: INSULIN HUMAN NPH/R 70/30 1,000 UNITS/10 ML VIAL SQ SCH (08:15)
[2017-03-19] MEDS: ASPIRIN EC 81 MG TABEC PO SCH (08:29)
[2017-03-19] MEDS: FUROSEMIDE 20 MG TAB PO SCH (08:30)
[2017-03-19] MEDS: MULTIVITAMINS/MINERALS THERAPEUTIC TAB PO SCH (08:30)
[2017-03-19] MEDS: CALCITRIOL 0.25 MCG CAP PO SCH (08:31)
[2017-03-19] MEDS: LACTOBACILLUS ACIDOPHILUS TAB PO SCH (08:31)
[2017-03-19] MEDS: FERROUS SULFATE 325 MG (65 MG ELEMENTAL IRON) TAB PO SCH (08:31)
[2017-03-19] MEDS: ASCORBIC ACID 500 MG TAB PO SCH (08:31)
[2017-03-19] MEDS: CHOLECALCIFEROL (VIT D3) 1000 UNIT TAB PO SCH (08:31)
[2017-03-19] MEDS: CARVEDILOL 6.25 MG TAB PO SCH (08:31)
[2017-03-19] MEDS: DOCUSATE SODIUM 50 MG/SENNA 8.6 MG TAB PO SCH (08:32)
[2017-03-19] MEDS: RIVAROXABAN 20 MG TAB PO SCH (08:32)
[2017-03-19] MEDS: prednisoLONE ACETATE 1% OPHT SUSP 5 ML BTL RIGHT EYE SCH (08:36)
[2017-03-19] MEDS: COLLAGENASE OINT 30 GM TUBE TOPICAL SCH (08:37)
[2017-03-19] MEDS: MORPHINE SULFATE 15 MG CONTROLLED RELEASE TAB PO SCH (08:42)
[2017-03-19] MEDS: POVIDONE IODINE 10% OINT 1 PACKET TOPICAL SCH (08:43)
[2017-03-19] MEDS: LACTIC ACID (AMMONIUM LACTATE) 12% LOTION 225 GM BTL TOPICAL SCH (08:43)
[2017-03-19] MEDS: ARTIFICIAL TEARS OPTH SOLN 15 ML BTL EACH EYE SCH ×2 (08:46→13:22)
[2017-03-19] MEDS: CARBAMIDE PEROXIDE 6.5% OTIC SOLN 15 ML BTL EACH EAR SCH (08:46)
[2017-03-19] MEDS: SODIUM CHLORIDE 0.9% FLUSH 10 ML FLUSH SCH (08:48)
[2017-03-19] MEDS ORDERED: LOSARTAN 25 MG TAB PO SCH (09:00)
--- NOTE | 2017-03-19 09:37 | HHI.PR ---
Subjective Remarks Follow up cough, ACS. Patient denies chest pain. Still with cough productive of dark sputum. [place] "a little short of breath" this morning, better now. Objective Vitals Vital Signs Date Time Temp Pulse Resp B/P (MAP) Pulse Ox O2 Delivery O2 Flow Rate FiO2 03/19/17 08:00 97.0 70 20 153/70 (97) 97 03/19/17 07:57 96 21 03/19/17 06:00 70 03/19/17 05:00 76 03/19/17 05:00 98.1 52 20 111/49 (69) 96 03/19/17 04:00 66 03/19/17 03:00 62 03/19/17 02:25 94 03/19/17 02:00 58 03/19/17 01:00 64 03/19/17 00:00 58 03/19/17 00:00 98.1 54 20 142/66 (91) 96 03/18/17 23:00 58 03/18/17 22:20 66 03/18/17 21:50 20 03/18/17 21:00 86 03/18/17 20:00 86 03/18/17 19:52 92 21 03/18/17 19:20 98.1 67 20 152/75 (100) 96 03/18/17 19:00 95 03/18/17 18:00 90 03/18/17 17:00 74 03/18/17 16:00 74 03/18/17 15:00 97.7 76 20 159/74 (102) 93 03/18/17 15:00 70 03/18/17 14:07 76 03/18/17 13:00 82 03/18/17 12:04 88 03/18/17 11:15 97.8 80 20 172/80 (110) 95 03/18/17 11:00 81 03/18/17 10:00 76 I/O 03/18/17 03/18/17 03/18/17 03/19/17 03/19/17 03/19/17 07:00 15:00 23:00 07:00 15:00 23:00 Intake Total 480 ml 95 ml 664 ml Output Total 800 ml 700 ml 850 ml Balance -320 ml 95 ml -36 ml -850 ml Intake Oral 480 ml 420 ml IV Total 95 ml 244 ml Output Urine Total 800 ml 700 ml 850 ml # Bowel Movements 0 Result Diagram: 03/18/17 0515 03/18/17 0515 Imaging Last Impressions Chest X-Ray 03/18/17 0000 Signed Impressions: Service Date/Time: Saturday, March 18, 2017 11:07 - CONCLUSION: 1. Cardiomegaly and findings of vascular congestion without overt failure. The findings are improved when compared with the prior exam. 2. Left lower lobe atelectasis versus pneumonia. Moi Patterson MD Chest CT 03/18/17 0000 Signed Impressions: Service Date/Time: Sunday, March 19, 2017 06:27 - CONCLUSION: Small to moderate pleural effusions with bibasilar atelectasis. No acute pulmonary edema seen. No pneumonic infiltrates seen. Ap Aguayo MD Objective Remarks General: No acute distress. Heart: Regular rate and rhythm. No murmur. Lungs: Scattered rhonchi. Breath sounds decreased in both bases. Breathing is nonlabored. Abdomen: Soft, nontender, nondistended. Extremities: Trace bilateral lower extremity edema. Wounds on both feet. Psych: Alert and oriented. Procedures 03/12/17 central line placement Urinary Catheter: No Vascular Central Line Catheter: No Line: Central Venous Catheter Side: Right Location: Subclavian A/P Problem List: (1) Respiratory failure requiring intubation ICD Code: J96.90 - Respiratory failure, unspecified, unspecified whether with hypoxia or hypercapnia Status: Acute (2) Pulmonary edema ICD Code: J81.1 - Pulmonary edema Status: Acute (3) Non-STEMI (non-ST elevated myocardial infarction) ICD Code: I21.4 - Non-ST elevation (NSTEMI) myocardial infarction Status: Acute (4) Acute on chronic systolic (congestive) heart failure ICD Code: I50.23 - Acute on chronic systolic (congestive) heart failure (5) Hypothyroidism ICD Code: E03.9 - Hypothyroidism, unspecified Status: Chronic (6) CAD (coronary artery disease) ICD Code: I25.10 - Atherosclerosis of coronary artery Status: Chronic (7) Hyperlipidemia ICD Code: E78.5 - Hyperlipidemia Status: Chronic Assessment and Plan 1. Acute respiratory failure: Improved. Patient extubated on 03/15/17. Tolerating room air this morning. Continue diuretics, bronchodilators. 2. NSTEMI, CAD, acute on chronic systolic congestive heart failure: Appreciate cardiology recommendations. Continue aspirin, beta kristopher. Troponin elevated. CT chest shows pleural effusion. Continue diuresis with Lasix. 3. Hypertension: Continue carvedilol. 4. Chronic kidney disease stage III: Continue gentle IV fluid hydration. Monitor strict intake/output. 5. Diabetes mellitus, type II: Insulin-dependent. Continue 70/30 insulin. Monitor Accu-Cheks and cover with sliding scale insulin. Glucose low again this morning. 6. COPD exacerbation: Continue DuoNeb, steroids. CXR and chest CT noted. No evidence of pneumonia. 7. Hypothyroidism: Continue levothyroxine. 8. Mood disorder: Continue quetiapine. 9. GERD: Pepcid. 10. DVT prophylaxis: SCDs, Avis May. 11. Diabetic foot wounds: Bilateral feet. Chronic, present on admission. Continue wound care. Discharge Planning Possible discharge home soon, when cleared by cardiology. Problem Qualifiers (1) Pulmonary edema: Qualified Codes: J81.0 - Acute pulmonary edema Mateo Wolfe MD Mar 19, 2017 09:37
--- NOTE | 2017-03-19 10:03 | PD.CARD.PN ---
Subjective Subjective Remarks feeling very well i want go home Objective Vital Signs / I&O Vital Signs Date Time Temp Pulse Resp B/P (MAP) Pulse Ox O2 Delivery O2 Flow Rate FiO2 03/19/17 08:00 97.0 70 20 153/70 (97) 97 03/19/17 07:57 96 21 03/19/17 06:00 70 03/19/17 05:00 76 03/19/17 05:00 98.1 52 20 111/49 (69) 96 03/19/17 04:00 66 03/19/17 03:00 62 03/19/17 02:25 94 03/19/17 02:00 58 03/19/17 01:00 64 03/19/17 00:00 58 03/19/17 00:00 98.1 54 20 142/66 (91) 96 03/18/17 23:00 58 03/18/17 22:20 66 03/18/17 21:50 20 03/18/17 21:00 86 03/18/17 20:00 86 03/18/17 19:52 92 21 03/18/17 19:20 98.1 67 20 152/75 (100) 96 03/18/17 19:00 95 03/18/17 18:00 90 03/18/17 17:00 74 03/18/17 16:00 74 03/18/17 15:00 97.7 76 20 159/74 (102) 93 03/18/17 15:00 70 03/18/17 14:07 76 03/18/17 13:00 82 03/18/17 12:04 88 03/18/17 11:15 97.8 80 20 172/80 (110) 95 03/18/17 11:00 81 I/O 03/18/17 03/18/17 03/18/17 03/19/17 03/19/17 03/19/17 07:00 15:00 23:00 07:00 15:00 23:00 Intake Total 480 ml 95 ml 664 ml Output Total 800 ml 700 ml 850 ml Balance -320 ml 95 ml -36 ml -850 ml Intake Oral 480 ml 420 ml IV Total 95 ml 244 ml Output Urine Total 800 ml 700 ml 850 ml # Bowel Movements 0 Physical Exam heart s1s2 regular lung on vent abdomen free ext dermatitis Assessment and Plan Assessment and Plan bp better feeling better will need 1500 cc fluid restrictions in group home ok to discharge and follow up in office in 1 week Hiwot Mckinley MD Mar 19, 2017 10:03
[2017-03-19 10:37] LABS: HEMATOCRIT 33.4 % (39.0-51.0); MEAN CELL VOLUME 77.2 FL (80.0-100.0); MEAN CORPUSCULAR HEMOGLOBIN 24.2 PG (27.0-34.0); MEAN CORPUSCULAR HGB CONC 31.4 % (32.0-36.0); PLATELET COUNT 195 TH/MM3 (150-450); RED BLOOD COUNT 4.33 MIL/MM3 (4.50-5.90); RED CELL DISTRIBUTION WIDTH 21.7 % (11.6-17.2); WHITE BLOOD COUNT 14.6 TH/MM3 (4.0-11.0)
[2017-03-19 10:38] LABS: AUTOMATED NEUTROPHIL # 13.7 TH/MM3 (1.8-7.7); HEMO FLAGS DIFF FINAL; LYMPH % 2.7 % (9.0-44.0); LYMPHOCYTE # 0.4 TH/MM3 (1.0-4.8); MONO % 3.3 % (0.0-8.0)
[2017-03-19 10:44] LABS: BICARBONATE 31.5 MEQ/L (21.0-32.0); POTASSIUM 3.9 MEQ/L (3.5-5.1)
[2017-03-19] MEDS ORDERED: CARV6.25 PO (12:09)
[2017-03-19] MEDS ORDERED: COZA25TA PO (12:09)
[2017-03-19] MEDS ORDERED: FURO20TA PO (12:12)
[2017-03-19] MEDS ORDERED: LEVO750T3 PO (12:12)
--- NOTE | 2017-03-19 12:13 | HHI.DCPOC ---
Discharge Care Plan Diagnosis: (1) Acute on chronic systolic (congestive) heart failure (2) Hypothyroidism (3) Hyperlipidemia (4) CAD (coronary artery disease) (5) Non-STEMI (non-ST elevated myocardial infarction) (6) Pulmonary edema (7) Respiratory failure (8) Atrial fibrillation (9) Pneumonia (10) Diabetes Goals to Promote Your Health * To prevent worsening of your condition and complications * To maintain your health at the optimal level Directions to Meet Your Goals Take your medications as prescribed Follow your dietary instruction Follow activity as directed Keep your appointments as scheduled Take your immunizations and boosters as scheduled If your symptoms worsen call your PCP, if no PCP go to Urgent Care Center or Emergency Room Smoking is Dangerous to Your Health. Avoid second hand smoke Call the 24-hour hour crisis hotline for domestic abuse at Mateo Wolfe MD Mar 19, 2017 12:13
[2017-03-19] MEDS: LEVOFLOXACIN 750 MG PREMIX INJ 150 ML IV SCH (15:00)
--- NOTE | 2017-03-20 15:10 | HHI.DS ---
Discharge Summary Admission Date Mar 12, 2017 at 22:46 Discharge Date: Mar 19, 2017 Admitting Diagnosis RESPIRATORY FAILURE S/P INTUBATION, PULMONARY EDEMA (1) Respiratory failure requiring intubation ICD Code: J96.90 - Respiratory failure, unspecified, unspecified whether with hypoxia or hypercapnia Status: Acute (2) Pulmonary edema ICD Code: J81.1 - Pulmonary edema Status: Acute (3) Non-STEMI (non-ST elevated myocardial infarction) ICD Code: I21.4 - Non-ST elevation (NSTEMI) myocardial infarction Status: Acute (4) Acute on chronic systolic (congestive) heart failure ICD Code: I50.23 - Acute on chronic systolic (congestive) heart failure (5) Hypothyroidism ICD Code: E03.9 - Hypothyroidism, unspecified Status: Chronic (6) CAD (coronary artery disease) ICD Code: I25.10 - Atherosclerosis of coronary artery Status: Chronic (7) Hyperlipidemia ICD Code: E78.5 - Hyperlipidemia Status: Chronic Procedures 03/12/17 central line placement Brief History - From Admission 66-year-old brought to the emergency department via EMS for shortness of breath. According to EMS the patient was at the retirement earlier today when he became short of breath. He was placed on a BiPAP with no significant improvement. He was intubated in the emergency department by ED attending that also placed the subclavian line for an. IV access CBC/BMP: 03/19/17 0952 03/19/17 0952 Significant Findings Laboratory Tests Test 03/18/17 05:15 03/19/17 09:52 White Blood Count 12.2 TH/MM3 (4.0-11.0) 14.6 TH/MM3 (4.0-11.0) Red Blood Count 3.94 MIL/MM3 (4.50-5.90) 4.33 MIL/MM3 (4.50-5.90) Hemoglobin 9.5 GM/DL (13.0-17.0) 10.5 GM/DL (13.0-17.0) Hematocrit 30.1 % (39.0-51.0) 33.4 % (39.0-51.0) Mean Corpuscular Volume 76.4 FL (80.0-100.0) 77.2 FL (80.0-100.0) Mean Corpuscular Hemoglobin 24.2 PG (27.0-34.0) 24.2 PG (27.0-34.0) Mean Corpuscular Hemoglobin Concent 31.6 % (32.0-36.0) 31.4 % (32.0-36.0) Red Cell Distribution Width 21.4 % (11.6-17.2) 21.7 % (11.6-17.2) Neutrophils (%) (Auto) 91.9 % (16.0-70.0) 94.0 % (16.0-70.0) Lymphocytes (%) (Auto) 3.7 % (9.0-44.0) 2.7 % (9.0-44.0) Neutrophils # (Auto) 11.2 TH/MM3 (1.8-7.7) 13.7 TH/MM3 (1.8-7.7) Lymphocytes # (Auto) 0.5 TH/MM3 (1.0-4.8) 0.4 TH/MM3 (1.0-4.8) Blood Urea Nitrogen 54 MG/DL (7-18) 57 MG/DL (7-18) Random Glucose 58 MG/DL (74-106) 130 MG/DL (74-106) Calcium Level 8.2 MG/DL (8.5-10.1) Sodium Level 146 MEQ/L (136-145) 146 MEQ/L (136-145) Chloride Level 109 MEQ/L (98-107) Estimat Glomerular Filtration Rate 68 ML/MIN (>89) 63 ML/MIN (>89) Imaging Last Impressions Chest X-Ray 03/18/17 Signed Impressions: Service Date/Time: Saturday, March 18, 2017 11:07 - CONCLUSION: 1. Cardiomegaly and findings of vascular congestion without overt failure. The findings are improved when compared with the prior exam. 2. Left lower lobe atelectasis versus pneumonia. Moi Patterson MD Chest CT 03/18/17 Signed Impressions: Service Date/Time: Sunday, March 19, 2017 06:27 - CONCLUSION: Small to moderate pleural effusions with bibasilar atelectasis. No acute pulmonary edema seen. No pneumonic infiltrates seen. Ap Aguayo MD PE at Discharge General: No acute distress. Heart: Regular rate and rhythm. No murmur. Lungs: Scattered rhonchi. Breath sounds decreased in both bases. Breathing is nonlabored. Abdomen: Soft, nontender, nondistended. Extremities: Trace bilateral lower extremity edema. Wounds on both feet. Psych: Alert and oriented. Hospital Course The patient was admitted to the critical care service for management of respiratory failure. He was intubated and placed on mechanical ventilation. His troponin increased. Cardiology was consulted. The patient was continued on diuresis for congestive heart failure. Echocardiogram showed ejection fraction 35%. The patient was weaned off sedation and extubated. He was able to tolerate oxygen per nasal cannula. Wound care was consulted for management of chronic bilateral diabetic foot wounds. He was cleared for discharge by cardiology and felt to be stable to return to his long-term residence at [facility]. Pt Condition on Discharge: Stable Discharge Disposition: Discharge to SNF Discharge Time: > 30 minutes Discharge Instructions DIET: Follow Instructions for: Heart Healthy Diet, Diabetic Diet Fluid Restrictions: 1500 ml/day Activities you can perform: Regular-No Restrictions Follow up Referrals: Cardiology - 1 Week with Hiwot Mckinley MD PCP Follow-up - 2 Weeks New Medications: Levofloxacin (Levofloxacin) 750 Mg Tablet 750 MG PO DAILY for Infection, #3 TAB 0 Refills Carvedilol (Coreg) 6.25 Mg Tab 6.25 MG PO BID for Heart, #60 TAB 0 Refills Furosemide (Furosemide) 20 Mg Tab 20 MG PO BID@09,18 for Diuretic, #60 TAB 0 Refills Losartan (Cozaar) 25 Mg Tab 50 MG PO DAILY for Blood Pressure Management, #30 TAB 0 Refills Continued Medications: Albuterol Neb (Albuterol Neb) 2.5 Mg/3 Ml Neb 2.5 MG NEB Q2HR PRN for SHORTNESS OF BREATH, #1 NEBULE 0 Refills Alprazolam (Xanax) 0.25 Mg Tab 0.25 MG PO Q6H PRN for ANXIETY, #10 TAB 0 Refills Ascorbic Acid (Vitamin C) 250 Mg Tab 250 MG PO BID for Nutritional Supplement, TAB [address] (Aspirin EC) 81 Mg Tabdr 81 MG PO DAILY for Prevent Blood Clot, #30 TAB 0 Refills Atorvastatin (Lipitor) 40 Mg Tab 40 MG PO HS for Cholesterol Management, #30 TAB 0 Refills Calcitriol (Calcitriol) 0.25 Mcg Cap 0.25 MCG PO We for Calcium Supplement, #30 CAP 0 Refills Take 1 capsule (0.25mcg) daily on Friday,Friday and Friday Carbamide Peroxide Otic Drops (Debrox Otic Drops) 6.5% Soln 5 DROP EACH EAR MONTHLY, #1 BOTTLE 0 Refills Cholecalciferol (Vitamin D3) 3,000 Unit Tab 3000 UNITS PO DAILY for Nutritional Supplement, #1 BOTTLE 0 Refills Dextrose Gel (Glucose Gel) 40 % Gel 1 TUBE PO ONCE PRN for LOW BLOOD SUGAR, #1 TUBE 0 Refills Ferrous Sulfate (Ferrous Sulfate) 325 Mg (65 Mg Iron) Tablet 325 MG PO DAILY for Nutritional Supplement, #30 TAB 0 Refills Glucagon (Rdna) Inj Kit (Glucagon Emergency Inj Kit) 1 Mg Kit 1 MG IM ONCE PRN for Blood Sugar Management, #1 KIT 0 Refills Hydroxyzine HCl (Hydroxyzine HCl) 25 Mg Tab 25 MG PO Q6HR PRN for ITCHING, TAB 0 Refills Insulin Degludec Inj (Tresiba Flextouch Pen Inj) 600 unit/3 ML Pen 95 UNITS SQ HS for Blood Sugar Management, #9 ML 0 Refills Insulin NPH Isophane-Reg (Human) 70-30 Inj (Humulin 70-30 Inj) 1,000 Unit/10 Ml Vial 70 UNITS SQ BID Ipratropium-Albuterol Neb (Duoneb) 0.5-2.5 Mg/3 Ml Neb 3 ML NEB Q6HR PRN for SHORTNESS OF BREATH, #30 NEBULE 0 Refills Lactobacillus (Acidophilus Probiotic) 100 Mg (1 Billion Cell) Cap 1 CAP PO BID Levothyroxine (Levothyroxine) 137 Mcg Tab 137 MCG PO DAILY for Thyroid, #30 TAB 0 Refills Melatonin (Melatonin) 3 Mg Tab 3 MG PO HS for Insomnia Morphine ER (Morphine ER) 15 Mg Tab 15 MG PO BID for Pain Management, #10 TAB 0 Refills Multiple Vitamins W/ Minerals (Multiple Vitamin/Minerals) 1 Tab Tab 1 TAB PO DAILY for Nutritional Supplement Nitroglycerin SL (Nitroglycerin SL) 0.4 Mg Subl 0.4 MG SL DIRECTED PRN for CHEST PAIN, #100 TAB.SL 0 Refills ONE TABLET UNDER THE TONGUE NEEDED FOR CHEST PAIN, MAY REPEAT EVERY FIVE MINUTES FOR A TOTAL OF 3 DOSES OR CALL 911 IF NO RELIEF Ondansetron (Zofran) 4 Mg Tab 4 MG PO Q6HR PRN for NAUSEA OR VOMITING, TAB 0 Refills Oxycodone (Oxycodone) 10 Mg Tab 10 MG PO Q4H PRN for PAIN, #10 TAB 0 Refills Oxygen (O2) (Oxygen (O2)) Inha LITER GEORGE.CANULA CONTINUOUS for Prevent Hypoxemia, #2 Oxygen Concentrator Portable Gaseous 2 L/min via Nasal Canula Continuous For 99 months Potassium Chloride Microencaps (Potassium Chloride Microencaps) 20 Meq Tab 20 MEQ PO DAILY for Electrolyte Replacement, #30 TAB Prednisolone Acetate Opth 1% (Pred Forte Opth 1%) 1% Susp 1 DROP RIGHT EYE BID for Inflammation, #1 BOTTLE 0 Refills Prednisone (Prednisone) 10 Mg Tab 10 MG PO BID for Infection, #6 TAB Quetiapine (Seroquel) 25 Mg Tab 25 MG PO HS, #30 TAB 0 Refills Rivaroxaban (Xarelto) 20 Mg Tab 20 MG PO DAILY for Blood Clot Prevention, TAB 0 Refills Simethicone (Gas-X) 125 Mg Tab.chew 125 MG PO DAILY Discontinued Medications: Azithromycin (Azithromycin) 250 Mg Tab 250 MG PO DAILY for Infection, #5 TAB Carvedilol (Coreg) 3.125 Mg Tab 3.125 MG PO BID for CHF, #60 TAB 0 Refills Furosemide (Furosemide) 20 Mg Tab 20 MG PO DAILY for Prevent Heart Failure, #30 TAB Lisinopril (Lisinopril) 2.5 Mg Tab 2.5 MG PO DAILY, #30 TAB 0 Refills Mateo Wolfe MD Mar 20, 2017 15:10
== END 2017-03-19 17:22 | DRG 207 ==
LOC: NEPE 20:23 → NEDA 22:46 → HIMW 03-13 00:35 → HCIN 03-16 19:36
PROVIDERS: ADMIT Family Medicine; ATTEND Family Medicine
PROC: 0BH17EZ Insertion of Endotracheal Airway into Trachea, Via Natural or Artificial Opening (ICD-10-PCS; principal; 2017-03-12)
PROC: 5A1955Z Respiratory Ventilation, Greater than 96 Consecutive Hours (ICD-10-PCS; 2017-03-12)
DX: J96.00 Acute respiratory failure, unspecified whether with hypoxia or hypercapnia (principal); I21.4 Non-ST elevation (NSTEMI) myocardial infarction; I50.23 Acute on chronic systolic (congestive) heart failure; J18.9 Pneumonia, unspecified organism; I13.0 Hypertensive heart and chronic kidney disease with heart failure and stage 1 through stage 4 chronic kidney disease, or unspecified chronic kidney disease; I42.9 Cardiomyopathy, unspecified; F03.90 Unspecified dementia, unspecified severity, without behavioral disturbance, psychotic disturbance, mood disturbance, and anxiety; J44.0 Chronic obstructive pulmonary disease with (acute) lower respiratory infection; J44.1 Chronic obstructive pulmonary disease with (acute) exacerbation; L97.419 Non-pressure chronic ulcer of right heel and midfoot with unspecified severity; L97.429 Non-pressure chronic ulcer of left heel and midfoot with unspecified severity; E11.22 Type 2 diabetes mellitus with diabetic chronic kidney disease; N18.3 Chronic kidney disease, stage 3 (moderate); E03.9 Hypothyroidism, unspecified; E78.5 Hyperlipidemia, unspecified; I25.10 Atherosclerotic heart disease of native coronary artery without angina pectoris; I25.2 Old myocardial infarction; I48.0 Paroxysmal atrial fibrillation; K21.9 Gastro-esophageal reflux disease without esophagitis; F39 Unspecified mood [affective] disorder; Z79.4 Long term (current) use of insulin; Z86.718 Personal history of other venous thrombosis and embolism; Z87.891 Personal history of nicotine dependence; Z95.1 Presence of aortocoronary bypass graft; Z95.5 Presence of coronary angioplasty implant and graft; D64.9 Anemia, unspecified; F41.8 Other specified anxiety disorders
CPT/HCPCS: 31500; 36556; 36600; 43753; 51702; 71010; 71250; 76937; 80048; 80053; 81001; 82550; 82552; 82805; 82948; 83036; 83735; 83880; 84100; 84439; 84443; 84484; 85025; 85610; 85730; 87040; 87449; 87641; 87804; 93005; 93308; 94002; 94003; 94150; 94640; 94664; 96365; 96375; 99292; J0330; J0360; J1815; J1940; J1956; J2270; J2920; J7030

== ENCOUNTER 2017-05-22 11:43 | Observation (INO) | payer MEDICARE, OTHER ==
[~2017-05-22] VITALS: Ht 165.1 cm; Wt 108.0 kg
[~2017-05-22 11:43] MED LIST changes: -ASPI81TA11 PO; +ASPI81TA23 PO; -AZIT250T3 PO; -CARV3.125 PO; +CARV6.25 PO; +COZA25TA PO; +FERR325T18 PO; -FERR325T8 PO; +LEVO750T3 PO; -LISI2.5T3 PO; -MELA0.02 PO; +MELA3TAB52 PO
[2017-05-22 11:45] VITALS: BP 192/88; PULSE 85; RESP 16; TEMP 98; O2SAT 100
[2017-05-22] MEDS ORDERED: SODIUM CHLORIDE 0.9% FLUSH 10 ML FLUSH IVF PRN (13:15)
--- NOTE | 2017-05-22 13:22 | PD ---
HPI Chief Complaint: General Weakness Time Seen by Provider: 12:54 Travel History International Travel<30 days: No Contact w/Intl Traveler<30days: No Traveled to known affect area: No History of Present Illness HPI 67 year old male presents for evaluation of fatigue and edema. He states that over the past few weeks he has been noticing that he is swelling up, he believes that he has gained about 30 pounds over the past few weeks due to retention of fluid. He has a history of congestive heart failure. He is following a fluid restricted diet of 1500cc per day and he is also on Spironolactone and Lasix but states that his lasix makes his kidney function worse.. He states that he sleeps on three pillows at night but denies orthopnea or paroxysmal nocturnal dyspnea. He has no shortness of breath or chest pain. No nausea or vomiting. No history of cancer, liver disease, or renal disease. PFSH Past Medical History Anemia: Yes Arthritis: No Asthma: No Atrial Fibrillation: Yes Autoimmune Disease: No Blood Disorders: No Anxiety: Yes Depression: Yes Heart Rhythm Problems: No Cancer: No Cardiac Catheterization: Yes Cardiovascular Problems: Yes (HTN, CHF, SD ) High Cholesterol: Yes Chemotherapy: No Chest Pain: No Congestive Heart Failure: Yes COPD: Yes Cerebrovascular Accident: No Dementia: Yes Diabetes: Yes Patient Takes Glucophage: No Diminished Hearing: No Diverticulitis: Yes Deep Vein Thrombosis: Yes Endocrine: Yes (DIABETIC) GERD: Yes Glaucoma: No Genitourinary: Yes Headaches: Yes Hepatitis: No Hiatal Hernia: No Hypertension: Yes Immune Disorder: No Implanted Vascular Access Dvce: No Kidney Stones: No Medical other: Yes (PILONIDAL CYST) Musculoskeletal: Yes Neurologic: No Psychiatric: Yes (PSYCHOSIS) Reproductive: No Respiratory: No Integumentary: Yes (PRURITIC DISORDER) Migraines: No Myocardial Infarction: Yes (STEMI ) Pneumonia: Yes Radiation Therapy: No Renal Failure: Yes Seizures: No Sickle Cell Disease: No Sleep Apnea: No Thyroid Disease: Yes (HYPOTHYROIDSIM) Ulcer: No ?: Not Past Surgical History Abdominal Surgery: No AICD: No Appendectomy: No Arteriovenous Shunt: No Cardiac Surgery: Yes (Triple bypass) Cholecystectomy: No Coronary Artery Bypass Graft: Yes (TRIPLE BYPASS 2007) Coronary Stent: Yes Ear Surgery: No Endocrine Surgery: No Eye Surgery: Yes (cataracts bilateral) Genitourinary Surgery: No Gynecologic Surgery: No Insulin Pump: No Joint Replacement: No Neurologic Surgery: No Oral Surgery: No Pacemaker: No Thoracic Surgery: No Other Surgery: Yes (AMPUTION RT. GREAT TOE AND LITTLE TOE,) Social History Alcohol Use: No Tobacco Use: No (QUIT ) Substance Use: No Allergies-Medications (Allergen,Severity, Reaction): Coded Allergies: Iodinated Contrast- Oral and IV Dye (Verified Allergy, Severe, Anaphylaxis , 05/22/17) acetaminophen (Unverified Allergy, Severe, "LIVER PROBLEMS", 05/22/17) diatrizoate meglumine (Unverified Allergy, Severe, Anaphylaxis, 05/22/17) gadobenic acid (Unverified Allergy, Severe, Anaphylaxis, 05/22/17) gadodiamide (Unverified Allergy, Severe, Anaphylaxis, 05/22/17) gadoteridol (Unverified Allergy, Severe, Anaphylaxis, 05/22/17) iodixanol (Unverified Allergy, Severe, Anaphylaxis, 05/22/17) iohexol (Unverified Allergy, Severe, Anaphylaxis, 05/22/17) penicillin G (Unverified Allergy, Severe, "HOT THROAT", 05/22/17) Uncoded Allergies: RADIOISOTOPES (Allergy, Severe, 09/27/13) UNKONWN RXN, LISTED ON PATIENT PAPERWORK FROM [facility]. Reported Meds & Prescriptions Reported Meds & Active Scripts Active Furosemide 20 Mg Tab 20 Mg PO BID@,18 Levofloxacin 750 Mg Tablet 750 Mg PO DAILY Cozaar (Losartan Potassium) 25 Mg Tab 50 Mg PO DAILY Coreg (Carvedilol) 6.25 Mg Tab 6.25 Mg PO BID Aspirin EC (Aspirin) 81 Mg Tabdr 81 Mg PO DAILY Prednisone 10 Mg Tab 10 Mg PO BID Potassium Chloride Microencaps 20 Meq Tab 20 Meq PO DAILY Xanax (Alprazolam) 0.25 Mg Tab 0.25 Mg PO Q6H PRN Oxycodone (Oxycodone HCl) 10 Mg Tab 10 Mg PO Q4H PRN Morphine ER (Morphine Sulfate) 15 Mg Tab 15 Mg PO BID Reported Zofran (Ondansetron HCl) 4 Mg Tab 4 Mg PO Q6HR PRN Nitroglycerin SL (Nitroglycerin) 0.4 Mg Subl 0.4 Mg SL DIRECTED PRN ONE TABLET UNDER THE TONGUE NEEDED FOR CHEST PAIN, MAY REPEAT EVERY FIVE MINUTES FOR A TOTAL OF 3 DOSES OR CALL 911 IF NO RELIEF Duoneb (Ipratropium-Albuterol Neb) 0.5-2.5 Mg/3 Ml Neb 3 Ml NEB Q6HR PRN Hydroxyzine HCl 25 Mg Tab 25 Mg PO Q6HR PRN Glucose Gel (Dextrose) 40 % Gel 1 Tube PO ONCE PRN Glucagon Emergency Inj Kit (Glucagon (Rdna) Inj Kit) 1 Mg Kit 1 Mg IM ONCE PRN Albuterol Neb (Albuterol Sulfate) 2.5 Mg/3 Ml Neb 2.5 Mg NEB Q2HR PRN Vitamin C (Ascorbic Acid) 250 Mg Tab 250 Mg PO BID Pred Forte Opth 1% (Prednisolone Acetate Opth 1%) 1% Susp 1 Drop RIGHT EYE BID Acidophilus Probiotic (Lactobacillus) 100 Mg (1 Billion Cell) Cap 1 Cap PO BID Humulin 70-30 Inj (Insulin NPH Isophane-Reg (Human) 70-30 Inj) 1,000 Unit/10 Ml Vial 70 Units SQ BID Xarelto (Rivaroxaban) 20 Mg Tab 20 Mg PO DAILY Tresiba Flextouch Pen Inj (Insulin Degludec Inj) 600 unit/3 ML Pen 95 Units SQ HS Seroquel (Quetiapine Fumarate) 25 Mg Tab 25 Mg PO HS Multiple Vitamin/Minerals (Multiple Vitamins W/ Minerals) 1 Tab Tab 1 Tab PO DAILY Melatonin 3 Mg Tab 3 Mg PO HS Levothyroxine (Levothyroxine Sodium) 137 Mcg Tab 137 Mcg PO DAILY Ferrous Sulfate 325 Mg (65 Mg Iron) Tablet 325 Mg PO DAILY Gas-X (Simethicone) 125 Mg Tab.chew 125 Mg PO DAILY Debrox Otic Drops (Carbamide Peroxide Otic Drops) 6.5% Soln 5 Drop EACH EAR MONTHLY Vitamin D3 (Cholecalciferol) 3,000 Unit Tab 3,000 Units PO DAILY Calcitriol 0.25 Mcg Cap 0.25 Mcg PO MOWEFR Take 1 capsule (0.25mcg) daily on Friday,Friday and Friday Lipitor (Atorvastatin Calcium) 40 Mg Tab 40 Mg PO HS Review of Systems Except as stated in HPI: all other systems reviewed are Neg General / Constitutional: No: Fever, Chills Eyes: No: Diploplia, Blurred Vision HENT: No: Headaches, Vertigo Cardiovascular: Positive: Edema, No: Chest Pain or Discomfort, Palpitations, Tachycardia Respiratory: No: Cough, Shortness of Breath, Wheezing Gastrointestinal: No: Nausea, Vomiting, Diarrhea Genitourinary: No: Urgency, Frequency Musculoskeletal: No: Myalgias Skin: No Rash, No Itching Neurologic: Positive: Weakness Physical Exam Narrative GENERAL: patient is sitting in his wheelchair, no acute distress SKIN: Warm and dry. There are anterior sores to the tibia bilaterally in lower extremities, there is also sore over the medial malleolus on the ankle on the right side. Both did not appear to be infected. HEAD: Atraumatic. Normocephalic. EYES: Pupils equal and round. No scleral icterus. No injection or drainage. ENT: No nasal bleeding or discharge. Mucous membranes pink and moist. NECK: Trachea midline. No JVD. CARDIOVASCULAR: Regular rate and rhythm. Pitting edema bilateral legs and abdomen. RESPIRATORY: No accessory muscle use. Clear to auscultation. Breath sounds equal bilaterally. GASTROINTESTINAL: Abdomen soft, non-tender, patient has pitting edema to the umbilicus and above, positive fluid wave with dullness to percussion. Hepatic and splenic margins not palpable. MUSCULOSKELETAL: Extremities without clubbing, cyanosis, significant pitting edema to bilateral lower extremities. No obvious deformities. NEUROLOGICAL: Awake and alert. No obvious cranial nerve deficits. Motor grossly within normal limits. Five out of 5 muscle strength in the arms and legs. Normal speech. PSYCHIATRIC: Appropriate mood and affect; insight and judgment normal. Data Data Last Documented VS Vital Signs Date Time Temp Pulse Resp B/P (MAP) Pulse Ox O2 Delivery O2 Flow Rate FiO2 05/22/17 15:34 97 Room Air 05/22/17 12:47 18 05/22/17 11:45 98.0 85 192/88 (122) Orders Orders Electrocardiogram (05/22/17 13:13) B-Type Natriuretic Peptide (05/22/17 13:13) Complete Blood Count With Diff (05/22/17 13:13) Comprehensive Metabolic Panel (05/22/17 13:13) Magnesium (Mg) (05/22/17 13:13) Prothrombin Time / Inr (Pt) (05/22/17 13:13) Act Partial Throm Time (Ptt) (05/22/17 13:13) Troponin I (05/22/17 13:13) Chest, Single Ap (05/22/17 13:13) Ecg Monitoring (05/22/17 13:13) Iv Access Insert/Monitor (05/22/17 13:13) Oximetry (05/22/17 13:13) Oxygen Administration (05/22/17 13:13) Sodium Chloride 0.9% Flush (Ns Flush) (05/22/17 13:15) Vascular Access Team Consult/P PRN (05/22/17 13:40) Vascular Poc Ultrasound (05/22/17 ) Furosemide Inj (Lasix Inj) (05/22/17 15:30) Admit Order (Ed Use Only) (05/22/17 16:42) Labs Laboratory Tests Test 05/22/17 14:15 05/22/17 15:45 White Blood Count 13.0 TH/MM3 Red Blood Count 4.76 MIL/MM3 Hemoglobin 12.9 GM/DL Hematocrit 40.4 % Mean Corpuscular Volume 84.8 FL Mean Corpuscular Hemoglobin 27.2 PG Mean Corpuscular Hemoglobin Concent 32.0 % Red Cell Distribution Width 20.9 % Platelet Count 178 TH/MM3 Mean Platelet Volume 9.0 FL Neutrophils (%) (Auto) 88.6 % Lymphocytes (%) (Auto) 5.6 % Monocytes (%) (Auto) 5.2 % Eosinophils (%) (Auto) 0.4 % Basophils (%) (Auto) 0.2 % Neutrophils # (Auto) 11.5 TH/MM3 Lymphocytes # (Auto) 0.7 TH/MM3 Monocytes # (Auto) 0.7 TH/MM3 Eosinophils # (Auto) 0.1 TH/MM3 Basophils # (Auto) 0.0 TH/MM3 CBC Comment DIFF FINAL Differential Comment Prothrombin Time 10.5 SEC Prothromb Time International Ratio 1.0 RATIO Activated Partial Thromboplast Time 21.1 SEC Blood Urea Nitrogen 47 MG/DL Creatinine 1.52 MG/DL Random Glucose 209 MG/DL Total Protein 7.9 GM/DL Albumin 3.2 GM/DL Calcium Level 8.9 MG/DL Magnesium Level 2.4 MG/DL Alkaline Phosphatase 141 U/L Aspartate Amino Transf (AST/SGOT) 44 U/L Alanine Aminotransferase (ALT/SGPT) 112 U/L Total Bilirubin 0.3 MG/DL Sodium Level 141 MEQ/L Potassium Level 5.0 MEQ/L Chloride Level 107 MEQ/L Carbon Dioxide Level 28.0 MEQ/L Anion Gap 6 MEQ/L Estimat Glomerular Filtration Rate 46 ML/MIN Troponin I 0.07 NG/ML B-Type Natriuretic Peptide 260 PG/ML MDM Medical Decision Making Medical Screen Exam Complete: Yes Emergency Medical Condition: Yes Differential Diagnosis CHF exacerbation, right Heart failure, pulmonary hypertension, Anasarca Narrative Course CBC, CMP, BNP, EKG, cardiac enzymes. Patient admitted to the emergency department, hemodynamically stable and is certainly not hypoxic. Does have a minimal elevation in troponin to 0.7, probably CHF exacerbation with anasarca. Hemodynamically stable the patient was given 80 mg of Lasix, discussed with Dr. Pual for observation. The patient will be admitted to the floor with a diagnosis of CHF exacerbation with anasarca. Diagnosis Primary Impression: Anasarca Additional Impression: CHF exacerbation Admitting Information Admitting Physician Requests: Observation Condition: Stable Afshin Orr MD May 22, 2017 13:22
--- NOTE | 2017-05-22 14:25 | RADRPT ---
EXAM DATE/TIME: 05/22/2017 13:49 [facility] COMPARISON: CT THORAX W/O CONTRAST, March 19, 2017, 6:27. CHEST SINGLE AP, March 18, 2017, 11:07. INDICATIONS : Shortness of breath. MEDICAL HISTORY : Congestive heart failure. Gastroesophageal reflux disease. Diabetes mellitus type II. Cardiovascu lar disease. Chronic obstructive pulmonary disease. Diverticulitis. Hypertension. Liver disease. SURGICAL HISTORY : CABG. ENCOUNTER: Initial ACUITY: 3 days PAIN SCORE: 0/10 LOCATION: Bilateral chest FINDINGS: Portable AP view of the chest demonstrates cardiac silhouette size at the upper limits for normal in this patient post median sternotomy and CABG. There is blunting of the left costophrenic sulcus. Mild interstitial prominence is stable bilaterally. No pneumothorax is visualized. Bones and soft tissues demonstrate no acute finding. CONCLUSION: Slight blunting of the left costophrenic sulcus suggesting a small left pleural effusion. Otherwise, no acute finding is appreciated. Ap Carrington MD on May 22, 2017 at 14:22 Board Certified Radiologist. This report was verified electronically.
[2017-05-22 14:57] LABS: ALT (GPT) 112 U/L (12-78); ANION GAP 6 MEQ/L (5-15); AST (GOT) 44 U/L (15-37); BLOOD UREA NITROGEN 47 MG/DL (7-18); CHLORIDE 107 MEQ/L (98-107); GLOMERULAR FILTRATION RATE 46 ML/MIN (>89); MAGNESIUM 2.4 MG/DL (1.5-2.5); SODIUM (NA) 141 MEQ/L (136-145)
[2017-05-22 14:58] LABS: AUTOMATED NEUTROPHIL # 11.5 TH/MM3 (1.8-7.7); BASOPHIL % 0.2 % (0.0-2.0); EOSINOPHIL # 0.1 TH/MM3 (0-0.4); EOSINOPHIL % 0.4 % (0.0-4.0); HEMATOCRIT 40.4 % (39.0-51.0); HEMO FLAGS DIFF FINAL; LYMPH % 5.6 % (9.0-44.0); LYMPHOCYTE # 0.7 TH/MM3 (1.0-4.8); MEAN CELL VOLUME 84.8 FL (80.0-100.0); MEAN CORPUSCULAR HEMOGLOBIN 27.2 PG (27.0-34.0); MONO % 5.2 % (0.0-8.0); NEUT % 88.6 % (16.0-70.0); PLATELET COUNT 178 TH/MM3 (150-450); RED BLOOD COUNT 4.76 MIL/MM3 (4.50-5.90); RED CELL DISTRIBUTION WIDTH 20.9 % (11.6-17.2)
[2017-05-22 15:01] LABS: ALKALINE PHOSPHATASE 141 U/L (45-117); TOTAL BILIRUBIN ADULT 0.3 MG/DL (0.2-1.0)
[2017-05-22 15:10] LABS: APTT (PATIENT) 21.1 SEC (24.3-30.1); PROTHROMBIN TIME - PATIENT 10.5 SEC (9.8-11.6)
[2017-05-22] MEDS ORDERED: FUROSEMIDE 100 MG/10 ML VIAL IV PUSH ONE (15:30)
--- NOTE | 2017-05-22 16:59 | EKG ---
Date Performed: 05/22/2017 Time Performed: 14:26:08 PTAGE: 67 years EKG: Sinus rhythm WITH OCCASIONAL SUPRAVENTRICULAR PREMATURE COMPLEXES NONSPECIFIC ST & T-WAVE ABNORMALITY ABNORMAL EC G Compared to prior electrocardiogram, rate has decreased ,Nonspecific ST and T wave abnormalities ar e less marked and QRS has narrowed. PREVIOUS TRACING : 03/12/2017 20.44 DOCTOR: Corona Lebron Interpretating Date/Time 05/22/2017 16:58:39
[2017-05-22 17:17] VITALS: BP 178/86; PULSE 76; RESP 18; TEMP 98.1; O2SAT 97
[2017-05-22] MEDS ORDERED: DEXTROSE 50% IN WATER 50 ML VIAL(D50) IV PUSH PRN (17:30)
[2017-05-22] MEDS ORDERED: SODIUM CHLORIDE 0.9% FLUSH 10 ML FLUSH IV FLUSH PRN (17:30)
[2017-05-22] MEDS ORDERED: ENOXAPARIN SODIUM 40 MG/0.4 ML SYRINGE SQ SCH (17:30)
[2017-05-22] MEDS ORDERED: NALOXONE HCL 0.4 MG/ML AMP IV PUSH PRN (17:30)
[2017-05-22] MEDS ORDERED: NON-FORMULARY DRUG (Ondansetron (Zofran) 4 MG) PO PRN (17:30)
[2017-05-22] MEDS ORDERED: hydrOXYzine HCL 25 MG TAB PO PRN (17:30)
[2017-05-22] MEDS ORDERED: MAGNESIUM HYDROXIDE SUSP 30 ML CUP PO PRN (17:30)
[2017-05-22] MEDS ORDERED: BISACODYL 10 MG SUPP RECTAL PRN (17:30)
[2017-05-22] MEDS ORDERED: RESP: ALBUTEROL 2.5 MG/3 ML NEB (PRN) NEB (17:30)
[2017-05-22] MEDS ORDERED: ONDANSETRON HCL 4 MG/2 ML VIAL IVP PRN (17:30)
[2017-05-22] MEDS ORDERED: ALPRAZolam 0.25 MG TAB PO PRN (17:30)
[2017-05-22] MEDS ORDERED: GLUCAGON 1 MG/ML VIAL OTHER PRN (17:30)
[2017-05-22] MEDS ORDERED: SENNOSIDES 8.6 MG TAB PO PRN (17:30)
[2017-05-22] MEDS ORDERED: LACTULOSE SYRUP 20 GM/30 ML CUP PO PRN (17:30)
[2017-05-22] MEDS ORDERED: ACETAMINOPHEN 325 MG TAB PO PRN (17:30)
[2017-05-22 17:33] VITALS: O2SAT 97
--- NOTE | 2017-05-22 18:07 | HHI.HP ---
HPI Service [facility] Primary Care Physician Alexis Aggarwal MD Admission Diagnosis Anasarca Diagnoses: Chief Complaint: Feeling tired, worsening edema Travel History International Travel<30 Days: No Contact w/Intl Traveler <30 Da: No Traveled to Known Affected Are: No History of Present Illness 67 year old male with multiple medical problems including congestive heart failure with low ejection fraction 35%, hypertension, CKD3, Afib on xarelto history of LA, anemia, osteoarthritis, atrial fibrillation, hyperlipidemia, diabetes mellitus, hypothyroidism, The patient presented to the emergency room for evaluation of fatigue and worsening edema. He states that over the past few weeks he has been noticing that he is swelling up, he believes that he has gained about 30 pounds over the past few weeks due to retention of fluid. He has a history of congestive heart failure. He is following a fluid restricted diet of 1500cc per day and he is also on Spironolactone and Lasix but states that his lasix makes his kidney function worse.. He states that he sleeps on three pillows at night but denies orthopnea or paroxysmal nocturnal dyspnea. He has no shortness of breath or chest pain. No nausea or vomiting. No history of cancer, liver disease, or renal disease. Review of Systems Except as stated in HPI: all other systems reviewed are Neg Past Family Social History Past Medical History Congestive heart failure with low ejection fraction, hypertension, history of LA , anemia, CKD3, Afib on xarelto, osteoarthritis, atrial fibrillation, hyperlipidemia, diabetes mellitus, hypothyroidism. Past Surgical History Triple bypass in 2007, bilateral cataracts surgery, right great toe amputation, and right fifth toe amputation Reported Medications Reported Meds & Active Scripts Active Furosemide 20 Mg Tab 20 Mg PO BID@, Levofloxacin 750 Mg Tablet 750 Mg PO DAILY Cozaar (Losartan Potassium) 25 Mg Tab 50 Mg PO DAILY Coreg (Carvedilol) 6.25 Mg Tab 6.25 Mg PO BID Aspirin EC (Aspirin) 81 Mg Tabdr 81 Mg PO DAILY Prednisone 10 Mg Tab 10 Mg PO BID Potassium Chloride Microencaps 20 Meq Tab 20 Meq PO DAILY Xanax (Alprazolam) 0.25 Mg Tab 0.25 Mg PO Q6H PRN Oxycodone (Oxycodone HCl) 10 Mg Tab 10 Mg PO Q4H PRN Morphine ER (Morphine Sulfate) 15 Mg Tab 15 Mg PO BID Reported Zofran (Ondansetron HCl) 4 Mg Tab 4 Mg PO Q6HR PRN Nitroglycerin SL (Nitroglycerin) 0.4 Mg Subl 0.4 Mg SL DIRECTED PRN ONE TABLET UNDER THE TONGUE NEEDED FOR CHEST PAIN, MAY REPEAT EVERY FIVE MINUTES FOR A TOTAL OF 3 DOSES OR CALL 911 IF NO RELIEF Duoneb (Ipratropium-Albuterol Neb) 0.5-2.5 Mg/3 Ml Neb 3 Ml NEB Q6HR PRN Hydroxyzine HCl 25 Mg Tab 25 Mg PO Q6HR PRN Glucose Gel (Dextrose) 40 % Gel 1 Tube PO ONCE PRN Glucagon Emergency Inj Kit (Glucagon (Rdna) Inj Kit) 1 Mg Kit 1 Mg IM ONCE PRN Albuterol Neb (Albuterol Sulfate) 2.5 Mg/3 Ml Neb 2.5 Mg NEB Q2HR PRN Vitamin C (Ascorbic Acid) 250 Mg Tab 250 Mg PO BID Pred Forte Opth 1% (Prednisolone Acetate Opth 1%) 1% Susp 1 Drop RIGHT EYE BID Acidophilus Probiotic (Lactobacillus) 100 Mg (1 Billion Cell) Cap 1 Cap PO BID Humulin 70-30 Inj (Insulin NPH Isophane-Reg (Human) 70-30 Inj) 1,000 Unit/10 Ml Vial 70 Units SQ BID Xarelto (Rivaroxaban) 20 Mg Tab 20 Mg PO DAILY Tresiba Flextouch Pen Inj (Insulin Degludec Inj) 600 unit/3 ML Pen 95 Units SQ HS Seroquel (Quetiapine Fumarate) 25 Mg Tab 25 Mg PO HS Multiple Vitamin/Minerals (Multiple Vitamins W/ Minerals) 1 Tab Tab 1 Tab PO DAILY Melatonin 3 Mg Tab 3 Mg PO HS Levothyroxine (Levothyroxine Sodium) 137 Mcg Tab 137 Mcg PO DAILY Ferrous Sulfate 325 Mg (65 Mg Iron) Tablet 325 Mg PO DAILY Gas-X (Simethicone) 125 Mg Tab.chew 125 Mg PO DAILY Debrox Otic Drops (Carbamide Peroxide Otic Drops) 6.5% Soln 5 Drop EACH EAR MONTHLY Vitamin D3 (Cholecalciferol) 3,000 Unit Tab 3,000 Units PO DAILY Calcitriol 0.25 Mcg Cap 0.25 Mcg PO MOWEFR Take 1 capsule (0.25mcg) daily on Friday,Friday and Friday Lipitor (Atorvastatin Calcium) 40 Mg Tab 40 Mg PO HS Allergies: Coded Allergies: Iodinated Contrast- Oral and IV Dye (Verified Allergy, Severe, Anaphylaxis , 05/22/17) acetaminophen (Unverified Allergy, Severe, "LIVER PROBLEMS", 05/22/17) diatrizoate meglumine (Unverified Allergy, Severe, Anaphylaxis, 05/22/17) gadobenic acid (Unverified Allergy, Severe, Anaphylaxis, 05/22/17) gadodiamide (Unverified Allergy, Severe, Anaphylaxis, 05/22/17) gadoteridol (Unverified Allergy, Severe, Anaphylaxis, 05/22/17) iodixanol (Unverified Allergy, Severe, Anaphylaxis, 05/22/17) iohexol (Unverified Allergy, Severe, Anaphylaxis, 05/22/17) penicillin G (Unverified Allergy, Severe, "HOT THROAT", 05/22/17) Uncoded Allergies: RADIOISOTOPES (Allergy, Severe, 09/27/13) UNKONWN RXN, LISTED ON PATIENT PAPERWORK FROM [facility]. Family History Diabetes, high blood pressure, runs in family Social History Denies alcohol use or illicit drug use. History of tobacco use. Quit a long time ago ~40 years ago Physical Exam Vital Signs Vital Signs Date Time Temp Pulse Resp B/P (MAP) Pulse Ox O2 Delivery O2 Flow Rate FiO2 05/22/17 17:33 97 05/22/17 17:17 98.1 76 18 178/86 (116) 97 Room Air 05/22/17 15:34 97 Room Air 05/22/17 12:47 18 Room Air 05/22/17 11:45 98.0 85 16 192/88 (122) 100 Room Air Physical Exam GENERAL: This is a well-nourished, well-developed patient, in no apparent distress. SKIN: No rashes, ecchymoses or lesions. Cool and dry. HEAD: Atraumatic. Normocephalic. No temporal or scalp tenderness. EYES: Pupils equal round and reactive. Extraocular motions intact. No scleral icterus. No injection or drainage. ENT: Nose without bleeding, purulent drainage or septal hematoma. Throat without erythema, tonsillar hypertrophy or exudate. Uvula midline. Airway patent. NECK: Trachea midline. No JVD or lymphadenopathy. Supple, nontender, no meningeal signs. CARDIOVASCULAR: Regular rate and rhythm without murmurs, gallops, or rubs. RESPIRATORY: Clear to auscultation. Breath sounds equal bilaterally. No wheezes , rales, or rhonchi. GASTROINTESTINAL: Abdomen soft, non-tender, nondistended. No hepato-splenomegaly , or palpable masses. No guarding. MUSCULOSKELETAL: Extremities without clubbing, cyanosis, or edema. No joint tenderness, effusion, or edema noted. No calf tenderness. Negative Homans sign bilaterally. NEUROLOGICAL: Awake and alert. Cranial nerves II through XII intact. Motor and sensory grossly within normal limits. Five out of 5 muscle strength in all muscle groups. Normal speech. Laboratory Laboratory Tests Test 05/22/17 14:15 05/22/17 15:45 White Blood Count 13.0 Red Blood Count 4.76 Hemoglobin 12.9 Hematocrit 40.4 Mean Corpuscular Volume 84.8 Mean Corpuscular Hemoglobin 27.2 Mean Corpuscular Hemoglobin Concent 32.0 Red Cell Distribution Width 20.9 Platelet Count 178 Mean Platelet Volume 9.0 Neutrophils (%) (Auto) 88.6 Lymphocytes (%) (Auto) 5.6 Monocytes (%) (Auto) 5.2 Eosinophils (%) (Auto) 0.4 Basophils (%) (Auto) 0.2 Neutrophils # (Auto) 11.5 Lymphocytes # (Auto) 0.7 Monocytes # (Auto) 0.7 Eosinophils # (Auto) 0.1 Basophils # (Auto) 0.0 CBC Comment DIFF FINAL Differential Comment Prothrombin Time 10.5 Prothromb Time International Ratio 1.0 Activated Partial Thromboplast Time 21.1 Blood Urea Nitrogen 47 Creatinine 1.52 Random Glucose 209 Total Protein 7.9 Albumin 3.2 Calcium Level 8.9 Magnesium Level 2.4 Alkaline Phosphatase 141 Aspartate Amino Transf (AST/SGOT) 44 Alanine Aminotransferase (ALT/SGPT) 112 Total Bilirubin 0.3 Sodium Level 141 Potassium Level 5.0 Chloride Level 107 Carbon Dioxide Level 28.0 Anion Gap 6 Estimat Glomerular Filtration Rate 46 Troponin I 0.07 B-Type Natriuretic Peptide 260 Result Diagram: 05/22/17 14105/22/17 1415 Imaging Last Impressions Chest X-Ray 05/22/17 1313 Signed Impressions: Service Date/Time: May 13:49 - CONCLUSION: Slight blunting of the left costophrenic sulcus suggesting a small left pleural effusion. Otherwise, no acute finding is appreciated. MD Bhargav Vazquez VTE Risk Assessment Caprintabatha VTE Risk Assessment: Mod/High Risk (score >= 2) Caprini Risk Assessment Model Point Value = 1 Point Value = 2 Point Value = 3 Point Value = 5 Age 41-60 Minor surgery BMI > 25 kg/m2 Swollen legs Varicose veins or History of unexplained or recurrent spontaneous Oral contraceptives or hormone replacement Sepsis (< 1 month) Serious lung disease, including pneumonia (< 1 month) Abnormal pulmonary function Acute myocardial infarction Congestive heart failure (< 1 month) History of inflammatory bowel disease Medical patient at bed rest Age 61-74 Arthroscopic surgery Major open surgery (> 45 min) Laparoscopic surgery (> 45 min) Malignancy Confined to bed (> 72 hours) Immobilizing plaster cast Central venous access Age >= 75 History of VTE Family history of VTE Factor V Leiden Prothrombin [id number] Lupus anticoagulant Anticardiolipin antibodies Elevated serum homocysteine Heparin-induced thrombocytopenia Other congenital or acquired thrombophilia Stroke (< 1 month) Elective arthroplasty Hip, pelvis, or leg fracture Acute spinal cord injury (< 1 month) Prophylaxis Regimen Total Risk Factor Score Risk Level Prophylaxis Regimen 0-1 Low Early ambulation 2 Moderate Order ONE of the following: *Sequential Compression Device (SCD) *Heparin 5000 units SQ BID 3-4 Higher Order ONE of the following medications: *Heparin 5000 units SQ TID *Enoxaparin/Lovenox 40 mg SQ daily (WT < 150 kg, CrCl > 30 mL/min) *Enoxaparin/Lovenox 30 mg SQ daily (WT < 150 kg, CrCl > 10-29 mL/min) *Enoxaparin/Lovenox 30 mg SQ BID (WT < 150 kg, CrCl > 30 mL/min) AND/OR *Sequential Compression Device (SCD) 5 or more Highest Order ONE of the following medications: *Heparin 5000 units SQ TID (Preferred with Epidurals) *Enoxaparin/Lovenox 40 mg SQ daily (WT < 150 kg, CrCl > 30 mL/min) *Enoxaparin/Lovenox 30 mg SQ daily (WT < 150 kg, CrCl > 10-29 mL/min) *Enoxaparin/Lovenox 30 mg SQ BID (WT < 150 kg, CrCl > 30 mL/min) AND *Sequential Compression Device (SCD) Assessment and Plan Assessment and Plan CHF exacerbation, anasarca. EF 30-35% 03/02/15 Mildly elevated troponin of 0.7 however patient denies any chest pain. Denies of breath improved after receiving Lasix in the emergency room. Hemodynamically stable the patient was 80 mg of Lasix given in the ED. continue diuresis with Lasix 40 mg IV twice a day. Monitor urine output. Monitor kidney function closely. Monitor on telemetry Chronic medical problems appear stable at this time: hypertension, history of LA , AFib on xarelto, anemia, CKD3 osteoarthritis, atrial fibrillation, hyperlipidemia, diabetes mellitus, hypothyroidism. Resume home medications as appropriate DVT prophylaxis patient is on xarelto Discussed Condition With Patient, nurse, ED physician Esperanza Martinez MD May 22, 2017 18:07
[2017-05-22] MEDS ORDERED: PILL SPLITTER OTHER PRN ×2 (18:45→19:45)
[2017-05-22] MEDS ORDERED: MORPHINE SULFATE 4 MG/ML INJ IV PUSH PRN (19:15)
[2017-05-22] MEDS ORDERED: RESP: ALBUTEROL 2.5 MG/IPRATROPIUM 0.5 MG NEB (PRN) NEB (19:45)
[2017-05-22] MEDS ORDERED: ATORVASTATIN 40 MG TAB PO SCH (21:00)
[2017-05-22] MEDS ORDERED: INSULIN DEGLUDEC SQ SCH (21:00)
[2017-05-22] MEDS: MELATONIN 5 MG TAB PO SCH (21:00)
[2017-05-22] MEDS ORDERED: LACTOBACILLUS PO SCH (21:00)
[2017-05-22] MEDS: prednisoLONE ACETATE 1% OPHT SUSP 5 ML BTL RIGHT EYE SCH (21:00)
[2017-05-22] MEDS ORDERED: NON-FORMULARY DRUG (Melatonin 3 MG) PO SCH (21:00)
[2017-05-22] MEDS ORDERED: [UNRECOGNIZED DRUG - OTHER] SQ SCH (21:00)
[2017-05-22] MEDS: DOCUSATE SODIUM 50 MG/SENNA 8.6 MG TAB PO SCH (21:00)
[2017-05-22] MEDS ORDERED: INSULIN HUMAN NPH/R 70/30 1,000 UNITS/10 ML VIAL SQ SCH (21:00)
[2017-05-22] MEDS: CARVEDILOL 6.25 MG TAB PO SCH (21:40)
[2017-05-22] MEDS: SODIUM CHLORIDE 0.9% FLUSH 10 ML FLUSH IV FLUSH SCH (21:40)
[2017-05-22] MEDS: QUEtiapine FUMARATE 25 MG TAB PO SCH (21:41)
[2017-05-22 21:42] VITALS: BP 195/95; PULSE 83; RESP 16; O2SAT 98
[2017-05-22 21:52] VITALS: BP 133/74; PULSE 78; RESP 18; TEMP 98.7; O2SAT 96
[2017-05-22] MEDS: LACTOBACILLUS ACIDOPHILUS TAB PO SCH (22:30)
[2017-05-22] MEDS: ASCORBIC ACID 500 MG TAB PO SCH (22:31)
[2017-05-22] MEDS: MORPHINE SULFATE 15 MG CONTROLLED RELEASE TAB PO SCH (22:32)
[2017-05-22] MEDS: predniSONE 10 MG TAB PO SCH (22:37)
[2017-05-23] VITALS (9 sets, daily range): BP systolic 119–145; BP diastolic 60–74; PULSE 63–78; RESP 17–20; TEMP 96.7–98.6; O2SAT 95–98
[2017-05-23] MEDS: prednisoLONE ACETATE 1% OPHT SUSP 5 ML BTL RIGHT EYE SCH ×3 (00:05→21:08)
[2017-05-23] MEDS: LEVOTHYROXINE SODIUM 25 MCG TAB PO SCH (05:09)
[2017-05-23] MEDS: LEVOTHYROXINE SODIUM 112 MCG TAB PO SCH (05:09)
[2017-05-23 07:03] LABS: AUTOMATED NEUTROPHIL # 12.7 TH/MM3 (1.8-7.7); BASOPHIL % 0.3 % (0.0-2.0); HEMATOCRIT 35.5 % (39.0-51.0); HEMO FLAGS DIFF FINAL; LYMPH % 3.9 % (9.0-44.0); LYMPHOCYTE # 0.5 TH/MM3 (1.0-4.8); MEAN CELL VOLUME 83.2 FL (80.0-100.0); MEAN CORPUSCULAR HEMOGLOBIN 27.1 PG (27.0-34.0); MEAN CORPUSCULAR HGB CONC 32.6 % (32.0-36.0); NEUT % 93.8 % (16.0-70.0); PLATELET COUNT 157 TH/MM3 (150-450); RED BLOOD COUNT 4.27 MIL/MM3 (4.50-5.90); WHITE BLOOD COUNT 13.5 TH/MM3 (4.0-11.0)
[2017-05-23 07:34] LABS: BICARBONATE 25.5 MEQ/L (21.0-32.0); POTASSIUM 4.7 MEQ/L (3.5-5.1)
[2017-05-23] MEDS: predniSONE 10 MG TAB PO SCH (08:46)
[2017-05-23] MEDS: MULTIVITAMINS/MINERALS THERAPEUTIC TAB PO SCH (08:46)
[2017-05-23] MEDS: DOCUSATE SODIUM 50 MG/SENNA 8.6 MG TAB PO SCH ×2 (08:46→21:07)
[2017-05-23] MEDS: LOSARTAN 50 MG TAB PO SCH (08:46)
[2017-05-23] MEDS: ASCORBIC ACID 500 MG TAB PO SCH ×2 (08:46→21:07)
[2017-05-23] MEDS: FERROUS SULFATE 325 MG (65 MG ELEMENTAL IRON) TAB PO SCH (08:46)
[2017-05-23] MEDS: RIVAROXABAN 20 MG TAB PO SCH (08:46)
[2017-05-23] MEDS: MORPHINE SULFATE 15 MG CONTROLLED RELEASE TAB PO SCH ×2 (08:47→21:08)
[2017-05-23] MEDS: SIMETHICONE 125 MG CHEWABLE TAB PO SCH (08:47)
[2017-05-23] MEDS: ASPIRIN EC 81 MG TABEC PO SCH (08:47)
[2017-05-23] MEDS: CHOLECALCIFEROL (VIT D3) 1000 UNIT TAB PO SCH (08:47)
[2017-05-23] MEDS: CARVEDILOL 6.25 MG TAB PO SCH ×2 (08:47→21:06)
[2017-05-23] MEDS: LACTOBACILLUS ACIDOPHILUS TAB PO SCH ×2 (08:47→21:07)
[2017-05-23] MEDS: FUROSEMIDE 40 MG/4 ML VIAL IV PUSH SCH ×2 (08:48→18:05)
[2017-05-23] MEDS: SODIUM CHLORIDE 0.9% FLUSH 10 ML FLUSH IV FLUSH SCH ×2 (08:48→21:06)
--- NOTE | 2017-05-23 14:06 | HHI.PR ---
Subjective Remarks Follow-up on patient with CHF exacerbation. Patient seen and examined. Patient denies any complaints of shortness of breath. He denies any complaints of chest pain. Of note, patient did not have any shortness of breath or chest pain prior to his admission. He was admitted for increased swelling in the abdomen and legs. He states he feels he has returned to his baseline. He denies any changes in his medications or his dietary habits. He would like to go back to his senior care. He denies any complaints of pain. He has bilateral lower extremity wounds that are chronic and treated daily at the senior care. He denies any fever or chills. Denies any N/V or abdominal pain. Objective Vitals Vital Signs Date Time Temp Pulse Resp B/P (MAP) Pulse Ox O2 Delivery O2 Flow Rate FiO2 05/23/17 08:00 96.7 63 18 132/64 (86) 95 05/23/17 04:23 97.5 73 18 126/60 (82) 96 05/23/17 01:10 21 05/23/17 00:20 97.9 72 20 119/64 (82) 95 05/22/17 21:52 98.7 78 18 133/74 (93) 96 05/22/17 21:42 83 16 195/95 (128) 98 Room Air 05/22/17 21:42 05/22/17 20:57 16 05/22/17 17:33 97 05/22/17 17:17 98.1 76 18 178/86 (116) 97 Room Air 05/22/17 15:34 97 Room Air I/O 05/22/17 05/22/17 05/22/17 05/23/17 05/23/17 05/23/17 07:00 15:00 23:00 07:00 15:00 23:00 Output Total 500 ml Balance -500 ml Output Urine Total 500 ml Result Diagram: 05/23/17 0649 05/23/17 0649 Imaging Last Impressions Chest X-Ray 05/22/17 1313 Signed Impressions: Service Date/Time: May 13:49 - CONCLUSION: Slight blunting of the left costophrenic sulcus suggesting a small left pleural effusion. Otherwise, no acute finding is appreciated. Ap Carrington MD Objective Remarks GENERAL: This is a well-nourished, well-developed obese patient, in no apparent distress. Awake and alert. Talkative. Resting tremor noted bilateral hands. SKIN: Cool and dry. Open wounds BLEs, chronic, dressed with kerlix and rivera bandages. HEAD: Atraumatic. Normocephalic. EYES: Extraocular motions intact left eye. Blindness right eye. No scleral icterus. No injection or drainage. ENT: Nose without bleeding or purulent drainage. Airway patent. MMM. NECK: Trachea midline. No JVD or lymphadenopathy. Supple, nontender, no meningeal signs. CARDIOVASCULAR: Regular rate and rhythm without murmurs, gallops, or rubs. RESPIRATORY: Clear to auscultation. Breath sounds equal bilaterally. No wheezes , rales, or rhonchi. GASTROINTESTINAL: Abdomen soft, non-tender, nondistended. No hepato-splenomegaly , or palpable masses. No guarding. MUSCULOSKELETAL: 3+ pitting edema bilateral lower extremities extending up to the knees,1-2+ pitting edema bilateral thighs and trace edema in the abdomen. Calves NTTP. NEUROLOGICAL: Awake and alert. Motor and sensory functions grossly intact. Normal speech. Medications and IVs Current Medications Medications (Trade) Dose Ordered Sig/Gucci Route Start Time Stop Time Status Last Admin (NS Flush) 2 ml UNSCH PRN IV FLUSH 05/22/17 17:30 (NS Flush) 2 ml BID IV FLUSH 05/22/17 21:00 05/23/17 08:48 (Zofran Inj) 4 mg Q6H PRN IVP 05/22/17 17:30 (Narcan Inj) 0.4 mg UNSCH PRN IV PUSH 05/22/17 17:30 (Kimberly-Colace) 1 tab BID PO 05/22/17 21:00 05/23/17 08:46 (Milk Of Magnesia Liq) 30 ml Q12H PRN PO 05/22/17 17:30 (Senokot) 17.2 mg Q12H PRN PO 05/22/17 17:30 (Dulcolax Supp) 10 mg DAILY PRN RECTAL 05/22/17 17:30 (Lactulose Liq) 30 ml DAILY PRN PO 05/22/17 17:30 (Albuterol Neb) 2.5 mg Q2HR NEB PRN NEB 05/22/17 17:30 (Xanax) 0.25 mg Q6H PRN PO 05/22/17 17:30 05/22/17 22:32 (Ecotrin Ec) 81 mg DAILY PO 05/23/17 09:00 05/23/17 08:47 (Lipitor) 40 mg HS PO 05/22/17 21:00 Future Hold (Rocaltrol) 0.25 mcg MoWeFr PO 05/23/17 17:30 (Coreg) 6.25 mg BID PO 05/22/17 21:00 05/23/17 08:47 (Vitamin D3) 3,000 units DAILY PO 05/23/17 09:00 05/23/17 08:47 (Ferrous Sulfate) 325 mg DAILY PO 05/23/17 09:00 05/23/17 08:46 (Atarax) 25 mg Q6HR PRN PO 05/22/17 17:30 (NovoLIN 70/30 INJ) 70 units BID SQ 05/22/17 21:00 Future Hold (Duoneb Neb) 1 ampule Q6HR NEB PRN NEB 05/22/17 19:45 (Cozaar) 50 mg DAILY PO 05/23/17 09:00 05/23/17 08:46 (Oramorph Sr) 15 mg BID PO 05/22/17 21:00 05/23/17 08:47 (Roxicodone) 10 mg Q4H PRN PO 05/22/17 17:30 05/23/17 05:35 (Pred Forte 1% Opth Susp) 1 drop BID RIGHT EYE 05/22/17 21:00 05/23/17 08:46 (Deltasone) 10 mg BID PO 05/22/17 21:00 05/23/17 08:46 (SEROquel) 25 mg HS PO 05/22/17 21:00 05/22/17 21:41 (Xarelto) 20 mg DAILY PO 05/23/17 09:00 05/23/17 08:46 (Phazyme Chew) 125 mg DAILY PO 05/23/17 09:00 05/23/17 08:47 (Vitamin C) 250 mg BID PO 05/22/17 21:00 05/23/17 08:46 Patient Own Medication PT OWN MED: TRESIBA FLEXTO... HS SQ 05/22/17 21:00 Future Hold (Synthroid) 112 mcg DAILY@0600 PO 05/23/17 06:00 05/23/17 05:09 (Theragran M Tab) 1 tab DAILY PO 05/23/17 09:00 05/23/17 08:46 (D50w (Vial) Inj) 50 ml UNSCH PRN IV PUSH 05/22/17 17:30 (Glucagon Inj) 1 mg UNSCH PRN OTHER 05/22/17 17:30 (Lasix Inj) 40 mg BID@,18 IV PUSH 05/23/17 09:00 05/23/17 08:48 (Morphine Inj) 2 mg Q4H PRN IV PUSH 05/22/17 19:15 05/22/17 20:32 (Pill Splitter) 1 ea UNSCH PRN OTHER 05/22/17 18:45 (Synthroid) 25 mcg DAILY@0600 PO 05/23/17 06:00 05/23/17 05:09 (Melatonin) 2.5 mg HS PO 05/22/17 21:00 05/22/17 21:00 (Lactinex) 1 tab BID PO 05/22/17 21:00 05/23/17 08:47 A/P Assessment and Plan 67-year-old man with CHF with EF 35%, hypertension, C D stage III, A. fib on Xarelto with history of IL, diabetes, dyslipidemia and hypothyroidism admitted with fatigue and worsening edema. Acute on chronic systolic heart failure EF 30-35% 03/02/15 Anasarca History of respiratory failure requiring intubation 03/12/17 - BNP 260 - continue diuresis with IV Lasix. Monitor electrolytes. - strict I&Os - fluid/salt restricted diet - resume 1500 cc fluid restricted diet as instructed by patient's gum scoring machine operator Dr. Mckinley per last hospitalization 03/19/17 - continue with PT CAD s/p previous [place] NSTEMI 04/01 Elevated troponin - no complaints of CP - Continue aspirin, beta kristopher - trend Denita, EKG Leukocytosis - Suspect secondary to steroid use - Discontinue oral prednisone, appears to be in inadvertently continued following last discharge - Chest x-ray shows slight blunting of the left costophrenic sulcus suggesting a small left pleural effusion. - obtain UA - Monitor white count Atrial fibrillation on Xarelto Controlled, normotensive - Continue on Xarelto, Coreg - monitor HR COPD, not in acute exacerbation - Monitor respiratory status - DuoNeb's as needed Hypertension Controlled - continue on Cozaar 50mg daily, Coreg 6.25mg BID - continue to monitor BP and adjust treatment accordingly DM - Heart healthy diabetic diet - History of fluctuating blood sugars with glucose of 68 this morning. Now 179. - Accu-Cheks and insulin sliding scale - HgbA1c 7.3 03/17/17 Transaminitis - Mild - Consider discontinuation of statin therapy if worsens - continue to monitor KATERIN on CKD stage 3 - Appears near baseline - Avoid all nephrotoxic agent - Monitor kidney function especially in light of IV diuresis with Lasix Hypothyroidism - Resume patient on home dose of levothyroxine - TSH 0.927 03/17/17 Dyslipidemia - continue on statin therapy Chronic bilateral lower extremity wound Current venous-stasis BLEs - Patient seen by wound care nurse during last hospitalization 03/21/17. Will resume wound care orders per previous recommendations. Consult wound care nurse for any changes. Mood disorder - Continue on Seroquel DVT prophylaxis - Patient is on Xarelto Discussed with patient, nursing staff and Dr. Snow Discharge Planning Pending clinical course, likely discharge tomorrow back to senior care Monica Bee May 23, 2017 14:06
[2017-05-23] MEDS ORDERED: CALCITRIOL 0.25 MCG CAP PO SCH (17:30)
[2017-05-23 18:31] LABS: BLOOD, URINE NEG (NEG); COMMENT (UR) CULT NOT INDICATED; CULTURE IF INDICATED CULT NOT INDICATED; GLUCOSE,URINE TRACE mg/dL (NEG); HYALINE CAST, URINE 4 /lpf (RARE); KETONE, URINE NEG (NEG); NITRITE,URINE NEG (NEG); PH, URINE 5.5 (5.0-8.5); URINE COLOR YELLOW (YELLW/STRAW)
[2017-05-23] MEDS: MELATONIN 5 MG TAB PO SCH (21:07)
[2017-05-23] MEDS: QUEtiapine FUMARATE 25 MG TAB PO SCH (21:07)
[2017-05-24] VITALS (7 sets, daily range): BP systolic 133–144; BP diastolic 65–89; PULSE 50–77; RESP 17–18; TEMP 97.4–98.7; O2SAT 95–99
[2017-05-24] MEDS: LEVOTHYROXINE SODIUM 25 MCG TAB PO SCH (06:07)
[2017-05-24] MEDS: LEVOTHYROXINE SODIUM 112 MCG TAB PO SCH (06:07)
[2017-05-24] MEDS ORDERED: INSULIN HUMAN NPH/R 70/30 1,000 UNITS/10 ML VIAL SQ SCH (08:00)
[2017-05-24 08:06] LABS: BICARBONATE 25.8 MEQ/L (21.0-32.0); POTASSIUM 4.6 MEQ/L (3.5-5.1)
[2017-05-24 08:23] LABS: AUTOMATED NEUTROPHIL # 14.2 TH/MM3 (1.8-7.7); BASOPHIL % 0.3 % (0.0-2.0); EOSINOPHIL # 0.1 TH/MM3 (0-0.4); EOSINOPHIL % 0.5 % (0.0-4.0); HEMATOCRIT 39.8 % (39.0-51.0); HEMO FLAGS AUTO DIFF; LYMPH % 7.5 % (9.0-44.0); LYMPHOCYTE # 1.3 TH/MM3 (1.0-4.8); MEAN CORPUSCULAR HEMOGLOBIN 27.1 PG (27.0-34.0); MEAN CORPUSCULAR HGB CONC 32.6 % (32.0-36.0); MONO % 8.5 % (0.0-8.0); NEUT % 83.2 % (16.0-70.0); PLATELET COUNT 190 TH/MM3 (150-450); RED BLOOD COUNT 4.79 MIL/MM3 (4.50-5.90); RED CELL DISTRIBUTION WIDTH 21.1 % (11.6-17.2)
[2017-05-24 08:47] LABS: PLATELET ESTIMATE SMEAR NORMAL (NORMAL); PLATELET MORPHOLOGY NORMAL (NORMAL); SCAN/DIFF AUTO DIFF CONFIRMED
[2017-05-24] MEDS: DOCUSATE SODIUM 50 MG/SENNA 8.6 MG TAB PO SCH (09:00)
[2017-05-24] MEDS: LACTOBACILLUS ACIDOPHILUS TAB PO SCH (09:23)
[2017-05-24] MEDS: FUROSEMIDE 40 MG/4 ML VIAL IV PUSH SCH (09:23)
[2017-05-24] MEDS: ASPIRIN EC 81 MG TABEC PO SCH (09:23)
[2017-05-24] MEDS: SODIUM CHLORIDE 0.9% FLUSH 10 ML FLUSH IV FLUSH SCH (09:23)
[2017-05-24] MEDS: CHOLECALCIFEROL (VIT D3) 1000 UNIT TAB PO SCH (09:23)
[2017-05-24] MEDS: FERROUS SULFATE 325 MG (65 MG ELEMENTAL IRON) TAB PO SCH (09:24)
[2017-05-24] MEDS: RIVAROXABAN 20 MG TAB PO SCH (09:24)
[2017-05-24] MEDS: SIMETHICONE 125 MG CHEWABLE TAB PO SCH (09:24)
[2017-05-24] MEDS: ASCORBIC ACID 500 MG TAB PO SCH (09:24)
[2017-05-24] MEDS: MULTIVITAMINS/MINERALS THERAPEUTIC TAB PO SCH (09:24)
[2017-05-24] MEDS: LOSARTAN 50 MG TAB PO SCH (09:25)
[2017-05-24] MEDS: MORPHINE SULFATE 15 MG CONTROLLED RELEASE TAB PO SCH (09:26)
[2017-05-24] MEDS: prednisoLONE ACETATE 1% OPHT SUSP 5 ML BTL RIGHT EYE SCH (09:34)
--- NOTE | 2017-05-24 12:41 | EKG ---
Date Performed: 05/23/2017 Time Performed: 18:16:16 PTAGE: 67 years EKG: Sinus rhythm WITH OCCASIONAL VENTRICULAR PREMATURE COMPLEXES POSSIBLE ANTERIOR MYOCARDIAL INFARCTION Nonspecific T-wave change ABNORMAL ECG PREVIOUS TRACING : 05/22/2017 14.26 Since previous tracing, T-wave changes slightly improved an terolaterally; otherwise, no significant change. DOCTOR: Stefan Nash Interpretating Date/Time 05/24/2017 12:39:59
[2017-05-24] MEDS ORDERED: FUROSEMIDE 40 MG/4 ML VIAL IV PUSH ONE (14:30)
--- NOTE | 2017-05-24 14:38 | HHI.PR ---
Subjective Remarks Follow-up on patient with CHF exacerbation. Patient seen and examined. Patient states he feels great. He reports significant improvement in his swelling. He reports excellent urinary output. He denies any chest pain or dyspnea. He denies any fever or chills. He denies any N/V or abdominal pain. He denies any fever, chills or cough. He denies any dizziness, lightheadedness or palpitations. The patient was breathing comfortably. He had no acute complaints. He said his legs are always swollen. He is going to work on controlling his diabetes. Objective Vitals Vital Signs Date Time Temp Pulse Resp B/P (MAP) Pulse Ox O2 Delivery O2 Flow Rate FiO2 05/24/17 12:32 97.4 57 18 144/65 (91) 99 05/24/17 09:38 21 05/24/17 08:20 62 05/24/17 08:15 97.5 50 18 137/71 (93) 99 05/24/17 04:19 98.7 55 17 133/89 (104) 95 05/24/17 04:07 53 05/24/17 00:17 56 05/24/17 00:05 98.2 77 17 135/65 (88) 98 05/23/17 23:18 68 05/23/17 21:22 98.6 77 17 145/74 (97) 96 05/23/17 18:29 78 05/23/17 16:00 97.9 69 18 139/67 (91) 98 I/O 05/23/17 05/23/17 05/23/17 05/24/17 05/24/17 05/24/17 07:00 15:00 23:00 07:00 15:00 23:00 Intake Total 1230 ml 400 ml Output Total 500 ml 1850 ml 1350 ml 1300 ml Balance -500 ml -620 ml -950 ml -1300 ml Intake Oral 1230 ml 400 ml Output Urine Total 500 ml 1850 ml 1350 ml 1300 ml Result Diagram: 05/24/1770405/24/17704 Imaging Last Impressions Chest X-Ray 05/22/17 1313 Signed Impressions: Service Date/Time: May 13:49 - CONCLUSION: Slight blunting of the left costophrenic sulcus suggesting a small left pleural effusion. Otherwise, no acute finding is appreciated. Ap Carrington MD Objective Remarks GENERAL: This is a well-nourished, well-developed obese patient, in no apparent distress. Awake and alert. Resting tremor noted bilateral hands. SKIN: Cool and dry. Open wounds BLEs, chronic, dressed with kerlix and rivera bandages. HEAD: Atraumatic. Normocephalic. EYES: Extraocular motions intact left eye. Blindness right eye. No scleral icterus. No injection or drainage. ENT: Nose without bleeding or purulent drainage. Airway patent. MMM. NECK: Trachea midline. CARDIOVASCULAR: Regular rate and rhythm without murmurs, gallops, or rubs. RESPIRATORY: Clear to auscultation. Breath sounds equal bilaterally. No wheezes , rales, or rhonchi. GASTROINTESTINAL: Abdomen soft, non-tender, nondistended. No hepato-splenomegaly , or palpable masses. No guarding. No edema in abdomen. MUSCULOSKELETAL: 2+ pitting edema bilateral lower extremities extending up to the knees, trace to 1+ pitting edema up to mid thigh, improving. Calves NTTP. NEUROLOGICAL: Awake and alert. Motor and sensory functions grossly intact. Normal speech. Medications and IVs Current Medications Medications (Trade) Dose Ordered Sig/Gucci Route Start Time Stop Time Status Last Admin (NS Flush) 2 ml UNSCH PRN IV FLUSH 05/22/17 17:30 (NS Flush) 2 ml BID IV FLUSH 05/22/17 21:00 05/24/17 09:23 (Zofran Inj) 4 mg Q6H PRN IVP 05/22/17 17:30 (Narcan Inj) 0.4 mg UNSCH PRN IV PUSH 05/22/17 17:30 (Kimberly-Colace) 1 tab BID PO 05/22/17 21:00 05/23/17 21:07 (Milk Of Magnesia Liq) 30 ml Q12H PRN PO 05/22/17 17:30 (Senokot) 17.2 mg Q12H PRN PO 05/22/17 17:30 (Dulcolax Supp) 10 mg DAILY PRN RECTAL 05/22/17 17:30 (Lactulose Liq) 30 ml DAILY PRN PO 05/22/17 17:30 (Albuterol Neb) 2.5 mg Q2HR NEB PRN NEB 05/22/17 17:30 (Xanax) 0.25 mg Q6H PRN PO 05/22/17 17:30 05/22/17 22:32 (Ecotrin Ec) 81 mg DAILY PO 05/23/17 09:00 05/24/17 09:23 (Lipitor) 40 mg HS PO 05/22/17 21:00 Future Hold (Rocaltrol) 0.25 mcg MoWeFr PO 05/23/17 17:30 05/23/17 18:05 (Coreg) 6.25 mg BID PO 05/22/17 21:00 Future hold 05/23/17 21:06 (Vitamin D3) 3,000 units DAILY PO 05/23/17 09:00 05/24/17 09:23 (Ferrous Sulfate) 325 mg DAILY PO 05/23/17 09:00 05/24/17 09:24 (Atarax) 25 mg Q6HR PRN PO 05/22/17 17:30 (NovoLIN 70/30 INJ) 70 units BID SQ 05/22/17 21:00 Future Hold (Duoneb Neb) 1 ampule Q6HR NEB PRN NEB 05/22/17 19:45 (Cozaar) 50 mg DAILY PO 05/23/17 09:00 05/24/17 09:25 (Oramorph Sr) 15 mg BID PO 05/22/17 21:00 05/24/17 09:26 (Roxicodone) 10 mg Q4H PRN PO 05/22/17 17:30 05/23/17 05:35 (Pred Forte 1% Opth Susp) 1 drop BID RIGHT EYE 05/22/17 21:00 05/24/17 09:34 (SEROquel) 25 mg HS PO 05/22/17 21:00 05/23/17 21:07 (Xarelto) 20 mg DAILY PO 05/23/17 09:00 05/24/17 09:24 (Phazyme Chew) 125 mg DAILY PO 05/23/17 09:00 05/24/17 09:24 (Vitamin C) 250 mg BID PO 05/22/17 21:00 05/24/17 09:24 Patient Own Medication PT OWN MED: TRESIBA FLEXTO... HS SQ 05/22/17 21:00 Future Hold (Synthroid) 112 mcg DAILY@0600 PO 05/23/17 06:00 05/24/17 06:07 (Theragran M Tab) 1 tab DAILY PO 05/23/17 09:00 05/24/17 09:24 (D50w (Vial) Inj) 50 ml UNSCH PRN IV PUSH 05/22/17 17:30 (Glucagon Inj) 1 mg UNSCH PRN OTHER 05/22/17 17:30 (Lasix Inj) 40 mg BID@,18 IV PUSH 05/23/17 09:00 05/24/17 09:23 (Morphine Inj) 2 mg Q4H PRN IV PUSH 05/22/17 19:15 05/22/17 20:32 (Pill Splitter) 1 ea UNSCH PRN OTHER 05/22/17 18:45 (Synthroid) 25 mcg DAILY@0600 PO 05/23/17 06:00 05/24/17 06:07 (Melatonin) 2.5 mg HS PO 05/22/17 21:00 05/23/17 21:07 (Lactinex) 1 tab BID PO 05/22/17 21:00 05/24/17 09:23 (NovoLIN 70/30 INJ) 35 units BID@08,17 SQ 05/24/17 08:00 A/P Assessment and Plan 67-year-old man with CHF with EF 35%, hypertension, C D stage III, A. fib on Xarelto with history of NM, diabetes, dyslipidemia and hypothyroidism admitted with fatigue and worsening edema. Acute on chronic systolic heart failure EF 30-35% 03/02/15 Anasarca, much improved History of respiratory failure requiring intubation 03/12/17 - patient has no respiratory complaints. O2 sats 99% on RA. - BNP 260 - UOP nearly 5000cc since admission. Continue diuresis with IV Lasix. Monitor electrolytes. Will increase oral Lasix dose at discharge.continue diuresis with IV Lasix. - strict I&Os - fluid/salt restricted diet - resume 1500 cc fluid restricted diet as instructed by patient's weapons designer Dr. Mckinley per last hospitalization 03/19/17 - continue with PT The patient is symptomatically improved with IV Lasix. Increase by mouth Lasix to 40 mg twice a day. Follow-up with cardiology as an outpatient. CAD s/p previous NM NSTEMI 04/01 Long hx of elevated troponins - no complaints of CP - Continue aspirin, beta kristopher - Denita stable Leukocytosis - Suspect secondary to steroid use - Discontinue oral prednisone, appears to be in inadvertently continued following last discharge - Chest x-ray shows slight blunting of the left costophrenic sulcus suggesting a small left pleural effusion. - UA not indicative of UTI - patient does not appear septic, afebrile. Repeat CBC in 2-3 days. Likely secondary to steroids. Discontinue steroids as unnecessary at this time. Atrial fibrillation on Xarelto Bradycardia, asymptomatic - Continue on Xarelto. Continue Coreg with holding parameters. - monitor HR COPD, not in acute exacerbation - Monitor respiratory status - DuoNeb's as needed Hypertension Controlled, normotensive - continue on Cozaar 50mg daily, Coreg 6.25mg BID - continue to monitor BP and adjust treatment accordingly DM - Heart healthy diabetic diet - History of fluctuating blood sugars with hx of hypoglycemic episodes. Low BS at 67 at admission. Adequate control at present. - Accu-Cheks and insulin sliding scale - HgbA1c 7.3 03/17/17 Transaminitis - Mild - Consider discontinuation of statin therapy if worsens - continue to monitor KATERIN on CKD stage 3 - Appears near baseline - Avoid all nephrotoxic agent - Kidney function stable Continue to monitor BMP periodically as the patient is on by mouth Lasix twice a day. Hypothyroidism - Resume patient on home dose of levothyroxine - TSH 0.927 03/17/17 Dyslipidemia - continue on statin therapy Chronic bilateral lower extremity wound Current venous-stasis BLEs - Patient seen by wound care nurse during last hospitalization 03/21/17. Will resume wound care orders per previous recommendations. Consult wound care nurse for any changes. Mood disorder - Continue on Seroquel Mood is stable at this time. DVT prophylaxis - Patient is on Xarelto Discussed with patient, nursing staff and Dr. Snow Discharge patient to SNF/prison Condition on discharge: Improved Heart healthy, diabetic Diet as tolerated, low salt diet, 1500cc fluid restrictions daily. Recommend daily weights. Ad Cinthia activity Rx written: Lasix 40mg po BID Follow-up with primary care physician in 2-[address] Mckinley in one week Repeat CBC to monitor leukocytosis in 2-3 days as outpatient Attending Statement The exam, history, and the medical decision-making described in the above note were completed with the assistance of the mid-level provider. I reviewed and agree with the findings presented. I attest that I had a [id number] encounter with the patient on the same day, and personally performed and documented my assessment and findings in the medical record. Monica Bee May 24, 2017 14:38 Jermaine Snow DO May 24, 2017 16:17
[2017-05-24] MEDS ORDERED: FURO20TA PO (14:45)
--- NOTE | 2017-05-24 16:13 | HHI.DCPOC ---
Discharge Care Plan Diagnosis: (1) Anasarca (2) Acute on chronic systolic (congestive) heart failure (3) Diabetes (4) Leukocytosis Goals to Promote Your Health * To prevent worsening of your condition and complications * To maintain your health at the optimal level Directions to Meet Your Goals Take your medications as prescribed Follow your dietary instruction Follow activity as directed Keep your appointments as scheduled Take your immunizations and boosters as scheduled If your symptoms worsen call your PCP, if no PCP go to Urgent Care Center or Emergency Room Smoking is Dangerous to Your Health. Avoid second hand smoke Call the 24-hour hour crisis hotline for domestic abuse at Jermaine Snow DO May 24, 2017 16:13
== END 2017-05-24 16:53 ==
LOC: NEPD 11:43 → NEDA 16:42 → NEPHCDU 21:45
PROVIDERS: ADMIT Hospitalist; ATTEND Hospitalist
DX: I13.0 Hypertensive heart and chronic kidney disease with heart failure and stage 1 through stage 4 chronic kidney disease, or unspecified chronic kidney disease (principal); I50.23 Acute on chronic systolic (congestive) heart failure; E11.22 Type 2 diabetes mellitus with diabetic chronic kidney disease; N18.3 Chronic kidney disease, stage 3 (moderate); I25.10 Atherosclerotic heart disease of native coronary artery without angina pectoris; D72.829 Elevated white blood cell count, unspecified; N17.9 Acute kidney failure, unspecified; I48.91 Unspecified atrial fibrillation; I25.2 Old myocardial infarction; E78.00 Pure hypercholesterolemia, unspecified; R74.8 Abnormal levels of other serum enzymes; R74.0 Nonspecific elevation of levels of transaminase and lactic acid dehydrogenase [LDH]; R94.31 Abnormal electrocardiogram [ECG] [EKG]; R60.0 Localized edema; E03.9 Hypothyroidism, unspecified; J44.9 Chronic obstructive pulmonary disease, unspecified; K21.9 Gastro-esophageal reflux disease without esophagitis; F03.90 Unspecified dementia, unspecified severity, without behavioral disturbance, psychotic disturbance, mood disturbance, and anxiety; F39 Unspecified mood [affective] disorder; F41.9 Anxiety disorder, unspecified; F32.9 Major depressive disorder, single episode, unspecified; M19.90 Unspecified osteoarthritis, unspecified site; Z79.01 Long term (current) use of anticoagulants; Z79.899 Other long term (current) drug therapy; Z79.82 Long term (current) use of aspirin; Z87.891 Personal history of nicotine dependence; Z89.411 Acquired absence of right great toe; Z89.421 Acquired absence of other right toe(s); Z95.1 Presence of aortocoronary bypass graft
CPT/HCPCS: 71010; 80048; 80053; 81001; 82948; 83735; 83880; 84484; 85025; 85610; 85730; 93005; 96374; 96376; 97162; 99285; G0378; G8987; G8988; J1940; J2270; J7512

== ENCOUNTER 2017-05-29 12:10 | Inpatient (IN) | payer MEDICARE, OTHER ==
[~2017-05-29] VITALS: Ht 162.6 cm; Wt 102.3 kg
[~2017-05-29 12:10] MED LIST changes: -LEVO750T3 PO; -OXYGEN NAS.CANULA; -PRED10 PO
[2017-05-29 12:21] VITALS: BP 106/62; PULSE 86; RESP 16; TEMP 98.6; O2SAT 96
--- NOTE | 2017-05-29 12:40 | PD ---
HPI Chief Complaint: Respiratory Symptoms Time Seen by Provider: 12:21 Travel History International Travel<30 days: No Contact w/Intl Traveler<30days: No Traveled to known affect area: No History of Present Illness HPI 67-year-old male came to the emergency room with history of shortness of breath. He comes from the [facility]. Patient was discharged from the hospital 3 days ago for congestive heart failure. Patient is laying there with his right upper extremity shaking and answering in monosyllables. He says that his arm always shakes. No history of fever or chills. No history of chest pain. Patient does have history of cardiac disease. Patient is not a good historian at this point. Most of the history is obtained from EMS and the paperwork that came from the [place] [facility]. He is progressively worsening with his shortness of breath and that's why they sent him here. [facility] Past Medical History Narrative Medical List of his past medical, surgical, social and family history is reviewed from the nursing note. Anemia: Yes Arthritis: No Asthma: No Atrial Fibrillation: Yes Autoimmune Disease: No Blood Disorders: No Anxiety: Yes Depression: Yes Heart Rhythm Problems: No Cancer: No Cardiac Catheterization: Yes Cardiovascular Problems: Yes High Cholesterol: Yes Chemotherapy: No Chest Pain: No Congestive Heart Failure: Yes COPD: Yes Cerebrovascular Accident: No Dementia: Yes Diabetes: Yes Diminished Hearing: No Diverticulitis: Yes Deep Vein Thrombosis: Yes Endocrine: Yes (DIABETIC) GERD: Yes Glaucoma: No Genitourinary: Yes (ARF) Headaches: Yes Hepatitis: No Hiatal Hernia: No Hypertension: Yes Immune Disorder: No Implanted Vascular Access Dvce: No Kidney Stones: No Musculoskeletal: Yes Neurologic: No Psychiatric: Yes (PSYCHOSIS) Reproductive: No Respiratory: Yes Integumentary: Yes (PRURITIC DISORDER) Migraines: No Myocardial Infarction: Yes (STEMI ) Pneumonia: Yes Radiation Therapy: No Renal Failure: Yes Seizures: No Sickle Cell Disease: No Sleep Apnea: No Thyroid Disease: Yes (HYPOTHYROIDSIM) Ulcer: No Past Surgical History Abdominal Surgery: No AICD: No Appendectomy: No Arteriovenous Shunt: No Cardiac Surgery: Yes (Triple bypass) Cholecystectomy: No Coronary Artery Bypass Graft: Yes (TRIPLE BYPASS 2007) Coronary Stent: Yes Ear Surgery: No Endocrine Surgery: No Eye Surgery: Yes (cataracts bilateral) Genitourinary Surgery: No Gynecologic Surgery: No Insulin Pump: No Joint Replacement: No Neurologic Surgery: No Oral Surgery: No Pacemaker: No Thoracic Surgery: No Other Surgery: Yes (AMPUTION RT. GREAT TOE AND LITTLE TOE,) Social History Alcohol Use: No Tobacco Use: No (QUIT ) Substance Use: No Allergies-Medications (Allergen,Severity, Reaction): Coded Allergies: Iodinated Contrast- Oral and IV Dye (Verified Allergy, Severe, Anaphylaxis , 05/29/17) acetaminophen (Unverified Allergy, Severe, "LIVER PROBLEMS", 05/29/17) diatrizoate meglumine (Unverified Allergy, Severe, Anaphylaxis, 05/29/17) gadobenic acid (Unverified Allergy, Severe, Anaphylaxis, 05/29/17) gadodiamide (Unverified Allergy, Severe, Anaphylaxis, 05/29/17) gadoteridol (Unverified Allergy, Severe, Anaphylaxis, 05/29/17) iodixanol (Unverified Allergy, Severe, Anaphylaxis, 05/29/17) iohexol (Unverified Allergy, Severe, Anaphylaxis, 05/29/17) penicillin G (Unverified Allergy, Severe, "HOT THROAT", 05/29/17) Uncoded Allergies: RADIOISOTOPES (Allergy, Severe, 09/27/13) UNKONWN RXN, LISTED ON PATIENT PAPERWORK FROM LADY MELGAR. Comments List of his allergies reviewed from the nursing note. Reported Meds & Prescriptions Reported Meds & Active Scripts Active Furosemide 20 Mg Tab 40 Mg PO BID@,18 Cozaar (Losartan Potassium) 25 Mg Tab 50 Mg PO DAILY Coreg (Carvedilol) 6.25 Mg Tab 6.25 Mg PO BID Aspirin EC (Aspirin) 81 Mg Tabdr 81 Mg PO DAILY Potassium Chloride Microencaps 20 Meq Tab 20 Meq PO DAILY Xanax (Alprazolam) 0.25 Mg Tab 0.25 Mg PO Q6H PRN Oxycodone (Oxycodone HCl) 10 Mg Tab 10 Mg PO Q4H PRN Morphine ER (Morphine Sulfate) 15 Mg Tab 15 Mg PO BID Reported Zofran (Ondansetron HCl) 4 Mg Tab 4 Mg PO Q6HR PRN Nitroglycerin SL (Nitroglycerin) 0.4 Mg Subl 0.4 Mg SL DIRECTED PRN ONE TABLET UNDER THE TONGUE NEEDED FOR CHEST PAIN, MAY REPEAT EVERY FIVE MINUTES FOR A TOTAL OF 3 DOSES OR CALL 911 IF NO RELIEF Duoneb (Ipratropium-Albuterol Neb) 0.5-2.5 Mg/3 Ml Neb 3 Ml NEB Q6HR PRN Hydroxyzine HCl 25 Mg Tab 25 Mg PO Q6HR PRN Glucose Gel (Dextrose) 40 % Gel 1 Tube PO ONCE PRN Glucagon Emergency Inj Kit (Glucagon (Rdna) Inj Kit) 1 Mg Kit 1 Mg IM ONCE PRN Albuterol Neb (Albuterol Sulfate) 2.5 Mg/3 Ml Neb 2.5 Mg NEB Q2HR PRN Vitamin C (Ascorbic Acid) 250 Mg Tab 250 Mg PO BID Pred Forte Opth 1% (Prednisolone Acetate Opth 1%) 1% Susp 1 Drop RIGHT EYE BID Acidophilus Probiotic (Lactobacillus) 100 Mg (1 Billion Cell) Cap 1 Cap PO BID Humulin 70-30 Inj (Insulin NPH Isophane-Reg (Human) 70-30 Inj) 1,000 Unit/10 Ml Vial 70 Units SQ BID Xarelto (Rivaroxaban) 20 Mg Tab 20 Mg PO DAILY Tresiba Flextouch Pen Inj (Insulin Degludec Inj) 600 unit/3 ML Pen 95 Units SQ HS Seroquel (Quetiapine Fumarate) 25 Mg Tab 25 Mg PO HS Multiple Vitamin/Minerals (Multiple Vitamins W/ Minerals) 1 Tab Tab 1 Tab PO DAILY Melatonin 3 Mg Tab 3 Mg PO HS Levothyroxine (Levothyroxine Sodium) 137 Mcg Tab 137 Mcg PO DAILY Ferrous Sulfate 325 Mg (65 Mg Iron) Tablet 325 Mg PO DAILY Gas-X (Simethicone) 125 Mg Tab.chew 125 Mg PO DAILY Debrox Otic Drops (Carbamide Peroxide Otic Drops) 6.5% Soln 5 Drop EACH EAR MONTHLY Vitamin D3 (Cholecalciferol) 3,000 Unit Tab 3,000 Units PO DAILY Calcitriol 0.25 Mcg Cap 0.25 Mcg PO MOWEFR Take 1 capsule (0.25mcg) daily on Friday,Friday and Friday Lipitor (Atorvastatin Calcium) 40 Mg Tab 40 Mg PO HS Narrative Medication List of his home medications reviewed from the nursing note. Review of Systems Except as stated in HPI: all other systems reviewed are Neg Respiratory: Positive: Shortness of Breath Physical Exam Narrative GENERAL: Lethargic, obese, moderate distress SKIN: Focused skin assessment warm/dry. HEAD: Atraumatic. Normocephalic. EYES: Pupils equal and round. No scleral icterus. No injection or drainage. ENT: No nasal bleeding or discharge. Mucous membranes pink and moist. NECK: Trachea midline. No JVD. CARDIOVASCULAR: Regular rate and rhythm. No murmur appreciated. RESPIRATORY: No accessory muscle use. Clear to auscultation. Breath sounds equal bilaterally. GASTROINTESTINAL: Abdomen soft, non-tender, nondistended. Hepatic and splenic margins not palpable. MUSCULOSKELETAL: No obvious deformities. No clubbing. No cyanosis. Bilateral leg edema NEUROLOGICAL: Lethargic, GCS of 14. No obvious cranial nerve deficits. Motor strength on for external. Normal speech, slow. PSYCHIATRIC: Appropriate mood and affect; insight and judgment normal. Data Data Last Documented VS Orders Orders Electrocardiogram (05/29/17 12:50) Complete Blood Count With Diff (05/29/17 12:50) Comprehensive Metabolic Panel (05/29/17 12:50) Prothrombin Time / Inr (Pt) (05/29/17 12:50) Troponin I (05/29/17 12:50) Thyroid Stimulating Hormone (05/29/17 12:50) Urinalysis - C+S If Indicated (05/29/17 12:50) Lactic Acid Sepsis Protocol (05/29/17 12:50) Arterial Blood Gas (Abg) (05/29/17 12:50) Blood Culture (05/29/17 12:50) Blood Glucose (05/29/17 12:50) Ecg Monitoring (05/29/17 12:50) Iv Access Insert/Monitor (05/29/17 12:50) Oximetry (05/29/17 12:50) Sodium Chloride 0.9% Flush (Ns Flush) (05/29/17 13:00) Vascular Access Team Consult/P PRN (05/29/17 12:59) Vascular Poc Ultrasound (05/29/17 ) B-Type Natriuretic Peptide (05/29/17 13:48) Chest, Single Ap (05/29/17 ) Admit To Inpatient (05/29/17 ) Vital Signs (Adult) Q4H (05/29/17 15:13) Activity Bed Rest (05/29/17 15:13) Diet Npo (05/29/17 Dinner) Inpatient Certification (05/29/17 ) Admit Order (Ed Use Only) (05/29/17 15:16) Labs Laboratory Tests Test 05/29/17 13:33 05/29/17 13:35 05/29/17 13:40 05/29/17 14:23 Total Creatine Kinase 642 U/L Creatine Kinase MB 3.9 NG/ML Creatine Kinase MB % 0.6 % White Blood Count 12.7 TH/MM3 Red Blood Count 4.16 MIL/MM3 Hemoglobin 11.2 GM/DL Hematocrit 34.7 % Mean Corpuscular Volume 83.4 FL Mean Corpuscular Hemoglobin 27.0 PG Mean Corpuscular Hemoglobin Concent 32.3 % Red Cell Distribution Width 19.9 % Platelet Count 197 TH/MM3 Mean Platelet Volume 8.5 FL Neutrophils (%) (Auto) 80.6 % Lymphocytes (%) (Auto) 7.1 % Monocytes (%) (Auto) 10.5 % Eosinophils (%) (Auto) 1.5 % Basophils (%) (Auto) 0.3 % Neutrophils # (Auto) 10.2 TH/MM3 Lymphocytes # (Auto) 0.9 TH/MM3 Monocytes # (Auto) 1.3 TH/MM3 Eosinophils # (Auto) 0.2 TH/MM3 Basophils # (Auto) 0.0 TH/MM3 CBC Comment DIFF FINAL Differential Comment Prothrombin Time 12.0 SEC Prothromb Time International Ratio 1.2 RATIO Blood Urea Nitrogen 51 MG/DL Creatinine 2.48 MG/DL Random Glucose 129 MG/DL Total Protein 7.2 GM/DL Albumin 2.8 GM/DL Calcium Level 9.0 MG/DL Alkaline Phosphatase 93 U/L Aspartate Amino Transf (AST/SGOT) 39 U/L Alanine Aminotransferase (ALT/SGPT) 54 U/L Total Bilirubin 0.8 MG/DL Sodium Level 144 MEQ/L Potassium Level 4.6 MEQ/L Chloride Level 106 MEQ/L Carbon Dioxide Level 30.1 MEQ/L Anion Gap 8 MEQ/L Estimat Glomerular Filtration Rate 26 ML/MIN Troponin I 0.09 NG/ML B-Type Natriuretic Peptide 53 PG/ML Thyroid Stimulating Hormone 3rd Gen 0.908 uIU/ML Lactic Acid Level 1.3 mmol/L Blood Gas Puncture Site RT RADIAL Blood Gas Patient Temperature 98.6 Blood Gas HCO3 27 mmol/L Blood Gas Base Excess 4.8 mmol/L Blood Gas Oxygen Saturation 95 % Arterial Blood pH 7.64 Arterial Blood Partial Pressure CO2 25 mmHg Arterial Blood Partial Pressure O2 75 mmHG Arterial Blood Oxygen Content 16.7 Vol % Arterial Blood Carboxyhemoglobin 1.9 % Arterial Blood Methemoglobin 0.4 % Blood Gas Hemoglobin 12.5 G/DL Oxygen Delivery Device ROOM AIR Blood Gas Inspired Oxygen 21 % [facility] Medical Decision Making Medical Screen Exam Complete: Yes Emergency Medical Condition: Yes Medical Record Reviewed: Yes Interpretation(s) Twelve-lead EKG was reviewed by me. Normal sinus rhythm, normal axis, nonspecific ST-T wave changes. Heart rate of 90 bpm. Differential Diagnosis Congestive heart failure, pneumonia, pleural effusion, COPD exacerbation Narrative Course 3:07 PM blood test results of back and troponin is mildly elevated. Renal insufficiency and leukocytosis. I will admit him to the hospitalist. Awaiting for the hospitalist to call back. I looked back at his recent discharge and hospitalization and his renal function seems to have worsened since his last blood work. This could be related to aggressive diuresing. At this point I don 't see patient going home and trying some more diuresis given his poor renal function. I recommend admission so that he can be seen by the assistant elementary teacher and the irrigation specialist. Procedures EKG Prior to Arrival: No Diagnosis Primary Impression: Acute renal failure superimposed on stage 3 chronic kidney disease Qualified Codes: N17.9 - Acute kidney failure, unspecified; N18.3 - Chronic kidney disease, stage 3 (moderate) Additional Impressions: Respiratory distress Congestive heart failure Qualified Codes: I50.9 - Heart failure, unspecified Failure of outpatient treatment Admitting Information Admitting Physician Requests: it Antoinette Mancini MD May 29, 2017 12:40
[2017-05-29] MEDS ORDERED: SODIUM CHLORIDE 0.9% FLUSH 10 ML FLUSH IV FLUSH PRN (13:00)
[2017-05-29 13:59] LABS: AUTOMATED NEUTROPHIL # 10.2 TH/MM3 (1.8-7.7); BASOPHIL % 0.3 % (0.0-2.0); EOSINOPHIL # 0.2 TH/MM3 (0-0.4); EOSINOPHIL % 1.5 % (0.0-4.0); HEMATOCRIT 34.7 % (39.0-51.0); HEMOGLOBIN 11.2 GM/DL (13.0-17.0); LYMPH % 7.1 % (9.0-44.0); LYMPHOCYTE # 0.9 TH/MM3 (1.0-4.8); MEAN CELL VOLUME 83.4 FL (80.0-100.0); MEAN CORPUSCULAR HGB CONC 32.3 % (32.0-36.0); MEAN PLATELET VOLUME 8.5 FL (7.0-11.0); MONO % 10.5 % (0.0-8.0); MONOCYTE # 1.3 TH/MM3 (0-0.9); NEUT % 80.6 % (16.0-70.0); PLATELET COUNT 197 TH/MM3 (150-450); RED BLOOD COUNT 4.16 MIL/MM3 (4.50-5.90); RED CELL DISTRIBUTION WIDTH 19.9 % (11.6-17.2); WHITE BLOOD COUNT 12.7 TH/MM3 (4.0-11.0)
[2017-05-29 14:08] LABS: INTERNATIONAL NORMALIZED RATIO 1.2 RATIO
[2017-05-29 14:17] LABS: ALBUMIN 2.8 GM/DL (3.4-5.0); ALT (GPT) 54 U/L (12-78); AST (GOT) 39 U/L (15-37); BICARBONATE 30.1 MEQ/L (21.0-32.0); BLOOD UREA NITROGEN 51 MG/DL (7-18); CHLORIDE 106 MEQ/L (98-107); CREATININE 2.48 MG/DL (0.60-1.30); GLOMERULAR FILTRATION RATE 26 ML/MIN (>89); GLUCOSE,RANDOM 129 MG/DL (74-106); SODIUM (NA) 144 MEQ/L (136-145)
[2017-05-29 14:21] VITALS: BP_SYST 137; BP_SYST 174; BP_DIAS 63; BP_DIAS 96; PULSE 86; RESP 18; O2SAT 96
[2017-05-29 14:26] LABS: ALKALINE PHOSPHATASE 93 U/L (45-117); TOTAL BILIRUBIN ADULT 0.8 MG/DL (0.2-1.0); TOTAL PROTEIN 7.2 GM/DL (6.4-8.2); TROPONIN I 0.09 NG/ML (0.02-0.05)
--- NOTE | 2017-05-29 14:49 | RADRPT ---
EXAM DATE/TIME: 05/29/2017 14:36 [place] COMPARISON: CHEST SINGLE AP, May 22, 2017, 13:49. INDICATIONS : Shortness of breath. MEDICAL HISTORY : Hypertension. Myocardial infarction. Chronic obstructive pulmonary disease. Afib. Congestive hear t failure. Diabetes. Renal failure. Liver disease. Systemic lupus erythemoatosus. DVT. Dementia. SURGICAL HISTORY : CABG. Coronary stent. Cadiac cath. ENCOUNTER: Initial ACUITY: 1 day PAIN SCORE: 0/10 LOCATION: Bilateral chest FINDINGS: The heart is enlarged. The patient is post median sternotomy. The lungs are clear. Visualized bony structures are intact. CONCLUSION: 1. Cardiomegaly. 2. Stable compared to prior dated 05/22/17 Adin Carvalho MD on May 29, 2017 at 14:46 Board Certified Radiologist. This report was verified electronically.
--- NOTE | 2017-05-29 15:16 | HHI.HP ---
HPI Service Family Medicine Primary Care Physician Alexis Aggarwal MD Admission Diagnosis Diagnoses: International Travel<30 Days: No Contact w/Intl Traveler<30days: No Known Affected Area: No History of Present Illness 67 year old male with multiple medical problems including congestive heart failure with low ejection fraction 35%, CAD s/p 3 vessel CABG, CKD stage 3, Afib on xarelto, history of WI, HTN, HLD, DM, who presents to the ED from [facility] for worsening shortness of breath. Patient was discharged from hospital 05/24 for acute CHF exacerbation. History was very limited due to patient's condition. Upon arrival to see patient in the ED, patient appeared to have severe trembling of right hand and was difficult to understand. He could only mumble "yes or no" to certain questions, appeared to have difficulty speaking, was only able to follow a few commands, and had left- sided weakness. In order to obtain patient's baseline, called and spoke with nurse at [facility]. Per nurse, patient is normally alert, speaks clearly, very functional, able to self propel himself in wheelchair. Patient appeared "okay last night, he was feeding himself." Nurse reports that he started acting "funny" this morning and " not acting his normal self." "He started to have tremors and appeared different." Due to report from the nurse, we were very concerned for a stroke and thus began workup. We went to re-evaluate patient again after being moved to the floor. Patient appeared slightly more responsive. Trembling of right hand resolved. He was oriented to place and time. He was able to tell me that he was at the hospital and knew what year it was. He still had moderate difficulty speaking and appeared to have left-sided weakness. On review of systems, patient complained of CRESPO and abdominal pain. Denied CP, SOB, and N/V. Review of Systems ROS Limitations: Speech Impaired Other Per HPI, limited by patient's condition Past Family Social History Past Medical History Congestive heart failure with low ejection fraction 35% (Echo 03/14/17) HTN Hx of WI Anemia CKD stage 3 Afib on xarelto Osteoarthritis Hyperlipidemia Diabetes mellitus Hypothyroidism. Past Surgical History Triple bypass in 2007 bilateral cataracts surgery right great toe amputation right fifth toe amputation Reported Medications Reported Meds & Active Scripts Active Furosemide 20 Mg Tab 40 Mg PO BID@09,18 Cozaar (Losartan Potassium) 25 Mg Tab 50 Mg PO DAILY Coreg (Carvedilol) 6.25 Mg Tab 6.25 Mg PO BID Aspirin EC (Aspirin) 81 Mg Tabdr 81 Mg PO DAILY Potassium Chloride Microencaps 20 Meq Tab 20 Meq PO DAILY Xanax (Alprazolam) 0.25 Mg Tab 0.25 Mg PO Q6H PRN Oxycodone (Oxycodone HCl) 10 Mg Tab 10 Mg PO Q4H PRN Morphine ER (Morphine Sulfate) 15 Mg Tab 15 Mg PO BID Reported Zofran (Ondansetron HCl) 4 Mg Tab 4 Mg PO Q6HR PRN Nitroglycerin SL (Nitroglycerin) 0.4 Mg Subl 0.4 Mg SL DIRECTED PRN ONE TABLET UNDER THE TONGUE NEEDED FOR CHEST PAIN, MAY REPEAT EVERY FIVE MINUTES FOR A TOTAL OF 3 DOSES OR CALL 911 IF NO RELIEF Duoneb (Ipratropium-Albuterol Neb) 0.5-2.5 Mg/3 Ml Neb 3 Ml NEB Q6HR PRN Hydroxyzine HCl 25 Mg Tab 25 Mg PO Q6HR PRN Glucose Gel (Dextrose) 40 % Gel 1 Tube PO ONCE PRN Glucagon Emergency Inj Kit (Glucagon (Rdna) Inj Kit) 1 Mg Kit 1 Mg IM ONCE PRN Albuterol Neb (Albuterol Sulfate) 2.5 Mg/3 Ml Neb 2.5 Mg NEB Q2HR PRN Vitamin C (Ascorbic Acid) 250 Mg Tab 250 Mg PO BID Pred Forte Opth 1% (Prednisolone Acetate Opth 1%) 1% Susp 1 Drop RIGHT EYE BID Acidophilus Probiotic (Lactobacillus) 100 Mg (1 Billion Cell) Cap 1 Cap PO BID Humulin 70-30 Inj (Insulin NPH Isophane-Reg (Human) 70-30 Inj) 1,000 Unit/10 Ml Vial 70 Units SQ BID Xarelto (Rivaroxaban) 20 Mg Tab 20 Mg PO DAILY Tresiba Flextouch Pen Inj (Insulin Degludec Inj) 600 unit/3 ML Pen 95 Units SQ HS Seroquel (Quetiapine Fumarate) 25 Mg Tab 25 Mg PO HS Multiple Vitamin/Minerals (Multiple Vitamins W/ Minerals) 1 Tab Tab 1 Tab PO DAILY Melatonin 3 Mg Tab 3 Mg PO HS Levothyroxine (Levothyroxine Sodium) 137 Mcg Tab 137 Mcg PO DAILY Ferrous Sulfate 325 Mg (65 Mg Iron) Tablet 325 Mg PO DAILY Gas-X (Simethicone) 125 Mg Tab.chew 125 Mg PO DAILY Debrox Otic Drops (Carbamide Peroxide Otic Drops) 6.5% Soln 5 Drop EACH EAR MONTHLY Vitamin D3 (Cholecalciferol) 3,000 Unit Tab 3,000 Units PO DAILY Calcitriol 0.25 Mcg Cap 0.25 Mcg PO MOWEFR Take 1 capsule (0.25mcg) daily on Friday,Friday and Friday Lipitor (Atorvastatin Calcium) 40 Mg Tab 40 Mg PO HS Allergies: Coded Allergies: Iodinated Contrast- Oral and IV Dye (Verified Allergy, Severe, Anaphylaxis , 05/29/17) acetaminophen (Unverified Allergy, Severe, "LIVER PROBLEMS", 05/29/17) diatrizoate meglumine (Unverified Allergy, Severe, Anaphylaxis, 05/29/17) gadobenic acid (Unverified Allergy, Severe, Anaphylaxis, 05/29/17) gadodiamide (Unverified Allergy, Severe, Anaphylaxis, 05/29/17) gadoteridol (Unverified Allergy, Severe, Anaphylaxis, 05/29/17) iodixanol (Unverified Allergy, Severe, Anaphylaxis, 05/29/17) iohexol (Unverified Allergy, Severe, Anaphylaxis, 05/29/17) penicillin G (Unverified Allergy, Severe, "HOT THROAT", 05/29/17) Uncoded Allergies: RADIOISOTOPES (Allergy, Severe, 09/27/13) UNKONWN RXN, LISTED ON PATIENT PAPERWORK FROM [facility]. Family History Diabetes, high blood pressure, runs in family Social History Denies alcohol use or illicit drug use. History of tobacco use. Quit a long time ago ~40 years ago Physical Exam Vital Signs Vital Signs Date Time Temp Pulse Resp B/P (MAP) Pulse Ox O2 Delivery O2 Flow Rate FiO2 05/29/17 14:21 86 18 174/96 (122) 96 Nasal Cannula 4.00 05/29/17 13:33 90 20 96 Nasal Cannula 4.00 05/29/17 12:21 98.6 86 16 106/62 (77) 96 Physical Exam GENERAL: elderly man, trembling in bed, very somnolent SKIN: No rashes, ecchymoses or lesions. Cool and dry. HEAD: Atraumatic. Normocephalic. EYES: R eye- severe cataracts, unable to asses pupillary response, L eye- mildly responsive, yellow crusting ENT: Unable to asses throat, patient unable to open mouth NECK: Trachea midline. No JVD or lymphadenopathy. CARDIOVASCULAR: Regular rate and rhythm without murmurs, gallops, or rubs. RESPIRATORY: Clear to auscultation. Breath sounds equal bilaterally. No wheezes , rales, or rhonchi. GASTROINTESTINAL: protuberant abdomen, tenderness to palpation in lower quadrants MUSCULOSKELETAL: lower extremities wrapped in rivera bandages NEUROLOGICAL: limited, partial aphasia, only able to mumble yes or no, follows a few commands, no asymmetrical smile noted, no facial droop noted, sensation in face intact, strength in right arm 5/5-able to lift and squeeze fingers, left arm- unable to squeeze fingers, able to lift left hand moderately, unable to assess lower extremity strength and sensation Laboratory Laboratory Tests Test 05/29/17 13:35 05/29/17 13:40 05/29/17 14:23 White Blood Count 12.7 Red Blood Count 4.16 Hemoglobin 11.2 Hematocrit 34.7 Mean Corpuscular Volume 83.4 Mean Corpuscular Hemoglobin 27.0 Mean Corpuscular Hemoglobin Concent 32.3 Red Cell Distribution Width 19.9 Platelet Count 197 Mean Platelet Volume 8.5 Neutrophils (%) (Auto) 80.6 Lymphocytes (%) (Auto) 7.1 Monocytes (%) (Auto) 10.5 Eosinophils (%) (Auto) 1.5 Basophils (%) (Auto) 0.3 Neutrophils # (Auto) 10.2 Lymphocytes # (Auto) 0.9 Monocytes # (Auto) 1.3 Eosinophils # (Auto) 0.2 Basophils # (Auto) 0.0 CBC Comment DIFF FINAL Differential Comment Prothrombin Time 12.0 Prothromb Time International Ratio 1.2 Blood Urea Nitrogen 51 Creatinine 2.48 Random Glucose 129 Total Protein 7.2 Albumin 2.8 Calcium Level 9.0 Alkaline Phosphatase 93 Aspartate Amino Transf (AST/SGOT) 39 Alanine Aminotransferase (ALT/SGPT) 54 Total Bilirubin 0.8 Sodium Level 144 Potassium Level 4.6 Chloride Level 106 Carbon Dioxide Level 30.1 Anion Gap 8 Estimat Glomerular Filtration Rate 26 Troponin I 0.09 Thyroid Stimulating Hormone 3rd Gen 0.908 Lactic Acid Level 1.3 Blood Gas Puncture Site RT RADIAL Blood Gas Patient Temperature 98.6 Blood Gas HCO3 27 Blood Gas Base Excess 4.8 Blood Gas Oxygen Saturation 95 Arterial Blood pH 7.64 Arterial Blood Partial Pressure CO2 25 Arterial Blood Partial Pressure O2 75 Arterial Blood Oxygen Content 16.7 Arterial Blood Carboxyhemoglobin 1.9 Arterial Blood Methemoglobin 0.4 Blood Gas Hemoglobin 12.5 Oxygen Delivery Device ROOM AIR Blood Gas Inspired Oxygen 21 Date/Time Source Procedure Growth Status 05/29/17 13:40 Blood Peripheral Aerobic Blood Culture Pending Received 05/29/17 13:40 Blood Peripheral Anaerobic Blood Culture Pending Received Result Diagram: 05/29/17 1335 05/29/17 1335 Imaging Last Impressions Head CT 05/29/17 1726 Signed Impressions: Service Date/Time: May 18:08 - CONCLUSION: 1. No acute intracranial abnormalities. Nilson Jeffries MD Head Magnetic Resonance Angiography 05/29/17 0000 Signed Impressions: Service Date/Time: May 18:31 - CONCLUSION: 1. Suboptimal exam degraded by motion as above. No definite occlusive disease. Nilson Jeffries MD Chest X-Ray 05/29/17 0000 Signed Impressions: Service Date/Time: May 14:36 - CONCLUSION: 1. Cardiomegaly. 2. Stable compared to prior dated 05/22/17 Adin Carvalho MD Carotid Artery Ultrasound 05/29/17 0000 Signed Impressions: Service Date/Time: May 19:47 - CONCLUSION: Moderate visible plaque in both carotid arteries. Findings suggest at least a moderate stenosis. This would be better evaluated with CTA carotids. Nilson Jeffries MD Brain MRI 05/29/17 0000 Signed Impressions: Service Date/Time: May 18:31 - CONCLUSION: 1. There is increased signal in the posterior left MCA distribution on the diffusion weighted images characteristic of an acute or subacute infarct. Currently no mass shift or evidence for hemorrhage. Nilson Jeffries MD Abdomen/Pelvis CT 05/29/17 0000 Signed Impressions: Service Date/Time: May 18:10 - CONCLUSION: 1. No acute finding on CT abdomen and pelvis. 2. Calcified gallstones. 3. There is a small hiatal hernia. Distended bladder. 4. 2.3 cm lesion lower pole right kidney not clearly a cyst. Recommend renal ultrasound to assess for cyst versus solid mass. MD Bhargav Matthew VTE Risk Assessment Caprintabatha VTE Risk Assessment: Mod/High Risk (score >= 2) Caprini Risk Assessment Model Point Value = 1 Point Value = 2 Point Value = 3 Point Value = 5 Age 41-60 Minor surgery BMI > 25 kg/m2 Swollen legs Varicose veins or History of unexplained or recurrent spontaneous Oral contraceptives or hormone replacement Sepsis (< 1 month) Serious lung disease, including pneumonia (< 1 month) Abnormal pulmonary function Acute myocardial infarction Congestive heart failure (< 1 month) History of inflammatory bowel disease Medical patient at bed rest Age 61-74 Arthroscopic surgery Major open surgery (> 45 min) Laparoscopic surgery (> 45 min) Malignancy Confined to bed (> 72 hours) Immobilizing plaster cast Central venous access Age >= 75 History of VTE Family history of VTE Factor V Leiden Prothrombin [id number] Lupus anticoagulant Anticardiolipin antibodies Elevated serum homocysteine Heparin-induced thrombocytopenia Other congenital or acquired thrombophilia Stroke (< 1 month) Elective arthroplasty Hip, pelvis, or leg fracture Acute spinal cord injury (< 1 month) Prophylaxis Regimen Total Risk Factor Score Risk Level Prophylaxis Regimen 0-1 Low Early ambulation 2 Moderate Order ONE of the following: *Sequential Compression Device (SCD) *Heparin 5000 units SQ BID 3-4 Higher Order ONE of the following medications: *Heparin 5000 units SQ TID *Enoxaparin/Lovenox 40 mg SQ daily (WT < 150 kg, CrCl > 30 mL/min) *Enoxaparin/Lovenox 30 mg SQ daily (WT < 150 kg, CrCl > 10-29 mL/min) *Enoxaparin/Lovenox 30 mg SQ BID (WT < 150 kg, CrCl > 30 mL/min) AND/OR *Sequential Compression Device (SCD) 5 or more Highest Order ONE of the following medications: *Heparin 5000 units SQ TID (Preferred with Epidurals) *Enoxaparin/Lovenox 40 mg SQ daily (WT < 150 kg, CrCl > 30 mL/min) *Enoxaparin/Lovenox 30 mg SQ daily (WT < 150 kg, CrCl > 10-29 mL/min) *Enoxaparin/Lovenox 30 mg SQ BID (WT < 150 kg, CrCl > 30 mL/min) AND *Sequential Compression Device (SCD) Assessment and Plan Assessment and Plan 67 year old male with CHF (EF 35%), HTN, CKD stage 3, CAD s/p 3 vessel CABG, Afib on xarelto, HTN, HLD, DM admitted for stroke workup. Brain MRI demonstrated acute infarct of posterior left MCA. Due to leukocytosis, tachycardia, and low grade fever, pt meets sepsis criteria, will start patient on empiric abx. Discussed Condition With Dr. Tien Ruiz and Dr. Keene Problem List: (1) Ischemic stroke ICD Codes: I63.9 - Cerebral infarction, unspecified Plan: Patient presents with aphasia and left-sided weakness upon arrival to ED. Difficult to establish time of onset,patient most likely outside of window for TPA. Brain MRI demonstrated increased signal in the posterior left MCA distribution on the diffusion of weighted images characteristic of an acute or subacute infarct. Currently on mass shift or evidence hemorrhage. 300mg aspirin rectally ordered Heparin 5000 units q12h Will restart Xarelto tomorrow Troponin at 0.09 (baseline), will continue to trend troponins along with EKG EKG revealed sinus rhythm, nonspecific T wave abnormalities Neurology consulted, recs appreciated. Stroke precautions ordered: head of bed flat for 12 hours, allow permissive HTN up to 220/120, 70ml/hr NS Nursing bedside swallow eval ordered Speech therapy consulted PT and OT consulted Rehab Medicine consulted (2) Sepsis ICD Codes: A41.9 - Sepsis Status: Acute Plan: Patient meets sepsis criteria with leukocytosis (WBC of 12.7), tachycardia (92), and low grade fever (100.5). Unknown source. Patient has allergy to PCN. Vancomycin 1500 mg IV, pharmacy consulted for renal dosage, appreciate recs Cipro 400mg IV q18h Flagly 500mg IV q8h Blood cultures pending UA and urine culture ordered (3) Congestive heart failure ICD Codes: I50.9 - Heart failure, unspecified Status: Acute Plan: Echo form 03/14/17 demonstrated 35% ejection fraction CXR revealed cardiomegaly and stable compared to CXR 05/22/17, which revealed slight blunting of the left costophrenic sulcus suggesting a small left pleural effusion BNP 53 2D echo with Doppler ordered (4) Atrial fibrillation ICD Codes: I48.91 - Atrial fibrillation Status: Chronic Plan: -Held home xarelto, will restart tomorrow (5) Chronic kidney disease, stage 3 ICD Codes: N18.3 - Chronic kidney disease, stage 3 (moderate) Plan: Bun 51 and creatinine elevated at 2.48 Continue to monitor NS 70mls/hr below maintenance rate due to CHF Will consider consulting nephrology (6) Hypertension ICD Codes: I10 - Hypertension Status: Chronic Plan: -Held home meds to allow for permissive HTN (7) Hyperlipidemia ICD Codes: E78.5 - Hyperlipidemia Status: Chronic Plan: -Continue Atorvastatin 40mg PO HS (8) Hypothyroidism ICD Codes: E03.9 - Hypothyroidism, unspecified Status: Chronic Plan: -Continue Levothyroxine 112mcg PO daily (9) Diabetes ICD Codes: E11.9 - Diabetes Status: Chronic Plan: -Low dose SS -Held home insulin (10) Nutrition, metabolism, and development symptoms ICD Codes: R63.8 - Other symptoms and signs concerning food and fluid intake Status: Acute Plan: Fluids: 70mls/hr NS Diet: NPO, nursing bedside swallow eval Electrolytes: monitor and replace as needed neuro checks q4h, vitals q4, monitor I & Os Case Management Consulted Physician Certification 2 Midnight Certification Type: Admission for Inpatient Services Order for Inpatient Services The services are ordered in accordance with Medicare regulations or non- Medicare payer requirements, as applicable. In the case of services not specified as inpatient-only, they are appropriately provided as inpatient services in accordance with the 2-midnight benchmark. Estimated LOS (days): 2 2 days is the estimated time the patient will need to remain in the hospital, assuming treatment plan goals are met and no additional complications. Post-Hospital Plan: Not yet determined Problem Qualifiers (1) Congestive heart failure: Qualified Codes: I50.9 - Heart failure, unspecified Nina Javier MD R1 May 29, 2017 15:16
[2017-05-29] MEDS ORDERED: MAGNESIUM HYDROXIDE SUSP 30 ML CUP PO PRN (16:00)
[2017-05-29] MEDS ORDERED: ONDANSETRON HCL 4 MG/2 ML VIAL IVP PRN (16:00)
[2017-05-29] MEDS ORDERED: SENNOSIDES 8.6 MG TAB PO PRN (16:00)
[2017-05-29] MEDS ORDERED: LACTULOSE SYRUP 20 GM/30 ML CUP PO PRN (16:00)
[2017-05-29] MEDS ORDERED: BISACODYL 10 MG SUPP RECTAL PRN (16:00)
[2017-05-29] MEDS ORDERED: NALOXONE HCL 0.4 MG/ML AMP IV PUSH PRN (16:00)
[2017-05-29] MEDS ORDERED: NITROGLYCERIN 0.4 MG SL 25 TABS/BTL SL PRN (16:15)
[2017-05-29] MEDS ORDERED: hydrOXYzine HCL 25 MG TAB PO PRN (16:15)
[2017-05-29] MEDS ORDERED: RESP: ALBUTEROL 2.5 MG/3 ML NEB (PRN) NEB (16:15)
[2017-05-29 16:39] VITALS: BP 168/62; PULSE 90; RESP 18; O2SAT 96
[2017-05-29] MEDS ORDERED: GLUCAGON 1 MG/ML VIAL OTHER PRN (16:45)
[2017-05-29] MEDS ORDERED: DEXTROSE 50% IN WATER 50 ML VIAL(D50) IV PUSH PRN (16:45)
[2017-05-29 17:00] VITALS: BP 100/60; PULSE 92; RESP 20; TEMP 100.5; O2SAT 92
[2017-05-29] MEDS: INSULIN ASPART SUPPLEMENTAL SCALE SQ SCH ×2 (17:00→21:00)
[2017-05-29] MEDS ORDERED: Vancomycin Consult Pharmacy 1 EA OTHER SCH (18:30)
[2017-05-29] MEDS ORDERED: PIPERACIL-TAZO 4.5 GM PREMIX 100 ML IV SCH (18:30)
--- NOTE | 2017-05-29 18:38 | RADRPT ---
EXAM DATE/TIME: 05/29/2017 18:08 [facility] COMPARISON: No previous studies available for comparison. INDICATIONS : Altered mental status. RADIATION DOSE: 56.48 CTDIvol (mGy) MEDICAL HISTORY : Cardiovascular disease. Hypertension. Chronic obstructive pulmonary disease. SURGICAL HISTORY : None. ENCOUNTER: Initial ACUITY: 1 day PAIN SCALE: 0/10 LOCATION: cranial TECHNIQUE: Multiple contiguous axial images were obtained of the head. Using automated exposure control and adj ustment of the mA and/or kV according to patient size, radiation dose was kept as low as reasonably a chievable to obtain optimal diagnostic quality images. DICOM format image data is available electro nically for review and comparison. FINDINGS: CEREBRUM: The ventricles are normal for age. No evidence of midline shift, mass lesion, hemorrhage or acute in farction. No extra-axial fluid collections are seen. POSTERIOR FOSSA: The cerebellum and brainstem are intact. The 4th ventricle is midline. The cerebellopontine angle i s unremarkable. EXTRACRANIAL: The visualized portion of the orbits is intact. SKULL: The calvaria is intact. No evidence of skull fracture. CONCLUSION: 1. No acute intracranial abnormalities. Nilson Jeffries MD on May 29, 2017 at 18:35 Board Certified Radiologist. This report was verified electronically.
--- NOTE | 2017-05-29 18:44 | RADRPT ---
EXAM DATE/TIME: 05/29/2017 18:10 [facility] COMPARISON: No previous studies available for comparison. INDICATIONS : Acute renal failure, abdominal pain. ORAL CONTRAST: No oral contrast ingested. RADIATION DOSE: 19.73 CTDIvol (mGy) MEDICAL HISTORY : Renal failure, acute. Chronic obstructive pulmonary disease. Cardiovascular diseaseHypertension. SURGICAL HISTORY : None. ENCOUNTER: Initial ACUITY: 1 day PAIN SCALE: 4/10 LOCATION: Bilateral flank TECHNIQUE: Volumetric scanning of the abdomen and pelvis was performed. Using automated exposure control and ad justment of the mA and/or kV according to patient size, radiation dose was kept as low as reasonably achievable to obtain optimal diagnostic quality images. DICOM format image data is available electro nically for review and comparison. FINDINGS: Lung bases demonstrate small 3 mm nodule left lower lobe. No acute findings in the liver, spleen, adrenals or pancreas. Small right low-attenuation lesion lowe r pole right kidney measures 2.3 cm, nonspecific. Multiple calcified gallstones in gallbladder. No free air free fluid. No bowel obstruction. No adenopathy. CONCLUSION: 1. No acute finding on CT abdomen and pelvis. 2. Calcified gallstones. 3. There is a small hiatal hernia. Distended bladder. 4. 2.3 cm lesion lower pole right kidney not clearly a cyst. Recommend renal ultrasound to assess for cyst versus solid mass. Nilson Jeffries MD on May 29, 2017 at 18:36 Board Certified Radiologist. This report was verified electronically.
[2017-05-29] MEDS ORDERED: ASPIRIN 300 MG SUPP RECTAL ONE (19:00)
--- NOTE | 2017-05-29 19:10 | RADRPT ---
EXAM DATE/TIME: 05/29/2017 18:31 [facility] COMPARISON: No previous studies available for comparison. INDICATIONS : CVA. MEDICAL HISTORY : Hypothyroidism. Hypertension. Hypercholesterolemia. Diabetes. OR. DVT. COPD. SURGICAL HISTORY : CABG Right fifth toe amputation. Cataracts. ENCOUNTER: Subsequent ACUITY: 1 day PAIN SCORE: Nonresponsive. LOCATION: cranial TECHNIQUE: Multiplanar, multisequence MRI of the brain was performed without contrast. FINDINGS: On the diffusion-weighted images there is some increased signal in the posterior left MCA distributio n characteristic of an acute or subacute infarct. Mild chronic white matter ischemic changes. No mass , hemorrhage or shift. No hydrocephalus. No abnormal extra-axial fluid. CONCLUSION: 1. There is increased signal in the posterior left MCA distribution on the diffusion weighted images characteristic of an acute or subacute infarct. Currently no mass shift or evidence for hemorrhage. Nilson Jeffries MD on May 29, 2017 at 19:02 Board Certified Radiologist. This report was verified electronically.
--- NOTE | 2017-05-29 19:11 | RADRPT ---
EXAM DATE/TIME: 05/29/2017 18:31 [facility] COMPARISON: No previous studies available for comparison. INDICATIONS : Stroke. MEDICAL HISTORY : Hypothyroidism. Hypertension. Hypercholesterolemia. Diabetes. TN. DVT. COPD. SURGICAL HISTORY : CABG Right fifth toe amputation.Cataracts. ENCOUNTER: Subsequent ACUITY: 1 day PAIN SCORE: Nonresponsive. LOCATION: cranial Please note a normal MRA of the brain does not entirely exclude the possibility of a small aneurysm, nor the possibility of distal intracranial vessel disease. TECHNIQUE: 3D time of flight MRA was performed. Source images, multiplanar STS MIP, and 3D volume MIP reconstru ctions were reviewed. FINDINGS: The exam is degraded by motion. Flow voids overlying the distal internal carotid arteries and basilar artery are probably related to motion artifact and are at the same level. The anterior, middle and p osterior cerebral arteries appear grossly patent. No discrete aneurysm. CONCLUSION: 1. Suboptimal exam degraded by motion as above. No definite occlusive disease. Nilson Jeffries MD on May 29, 2017 at 19:08 Board Certified Radiologist. This report was verified electronically.
[2017-05-29 20:00] VITALS: BP 109/59; PULSE 86; RESP 18; TEMP 100.6; O2SAT 99
[2017-05-29] MEDS ORDERED: SODIUM CHLOR 0.9% 1000 ML INJ 1,000 ML IV SCH (20:00)
[2017-05-29] MEDS ORDERED: CIPROFLOXACIN 400 MG PREMIX 200 ML IV SCH (20:00)
[2017-05-29] MEDS ORDERED: VANCOMYCIN INJ 1,500 MG in SODIUM CHLORID 0.9% 500 ML INJ 500 ML IV ONE (20:00)
[2017-05-29] MEDS ORDERED: ENALAPRILAT 1.25 MG/ML VIAL IV PUSH PRN (20:00)
--- NOTE | 2017-05-29 20:32 | RADRPT ---
EXAM DATE/TIME: 05/29/2017 19:47 [facility] COMPARISON: No previous studies available for comparison. INDICATIONS : Cerebrovascular accident. MEDICAL HISTORY : Hypothyroidism. Myocardial infarction. Congestive heart failure. Dementia. Dizziness. Deep vein throm bosis. COPD. Dyspnea. Gastroesophageal reflux disease. Renal failure. Arthritis. Osteoporosis. Diabet es. Liver disease. Depression. MRSA. SURGICAL HISTORY : CABG. Bilateral cataract surgery. Amputation of right great toe and little toe. ENCOUNTER: Initial ACUITY: 1 day PAIN SCORE: 0/10 LOCATION: Bilateral neck PEAK SYSTOLIC VELOCITIES (cm/sec): ICA/CCA RATIO: Right: 2.1 Left: 2.4 ICA: Right: 148.7 Left: 131.4 CCA: Right: 69.4 Left: 53.8 ECA: Right: 229.7 Left: 103.8 VERTEBRAL: Right: 81.8 antegrade Elevated flow velocities and ICA/CCA ratios have been found to correlate with increased degrees of vessel stenosis, calculated as percentage of diameter relative to a normal segment of distal ICA/CCA FINDINGS: Moderate visible plaque in the carotid arteries bilaterally elevated peak systolic velocity ratios. R atio is increased from 2014 exam. They suggest moderate stenosis. Left vertebral artery not visualize d. CONCLUSION: Moderate visible plaque in both carotid arteries. Findings suggest at least a moderate stenosis. This would be better evaluated with CTA carotids. Nilson Jeffries MD on May 29, 2017 at 20:27 Board Certified Radiologist. This report was verified electronically.
[2017-05-29] MEDS: SODIUM CHLORIDE 0.9% FLUSH 10 ML FLUSH IV FLUSH SCH (21:00)
[2017-05-29] MEDS ORDERED: CARVEDILOL 6.25 MG TAB PO SCH (21:00)
[2017-05-29] MEDS: metroNIDAZOLE 500 MG INJ 100 ML IV SCH (21:17)
[2017-05-29] MEDS: RESP: ALBUTEROL 2.5 MG/IPRATROPIUM 0.5 MG NEB (SCH) NEB (21:31)
[2017-05-29 21:36] VITALS: O2SAT 93
[2017-05-29] MEDS: CIPROFLOXACIN 400 MG PREMIX 200 ML IV SCH (21:53)
[2017-05-29] MEDS: QUEtiapine FUMARATE 25 MG TAB PO SCH (21:54)
[2017-05-29] MEDS: prednisoLONE ACETATE 1% OPHT SUSP 5 ML BTL RIGHT EYE SCH (21:54)
[2017-05-29] MEDS: ATORVASTATIN 40 MG TAB PO SCH (21:54)
[2017-05-29] MEDS: DOCUSATE SODIUM 50 MG/SENNA 8.6 MG TAB PO SCH (21:54)
[2017-05-29] MEDS: HEPARIN SODIUM - SQ 10,000 UNITS/ML VIAL SQ SCH (21:55)
[2017-05-29 22:01] LABS: TROPONIN I 0.13 NG/ML (0.02-0.05)
[2017-05-30] VITALS (14 sets, daily range): BP systolic 104–173; BP diastolic 58–96; PULSE 84–128; RESP 18–22; TEMP 97.4–100.3; O2SAT 92–99
[2017-05-30 01:56] LABS: BACTERIA, URINE RARE /hpf; BILIRUBIN, URINE NEG (NEG); BLOOD, URINE NEG (NEG); GLUCOSE,URINE NEG (NEG); HYALINE CAST, URINE 7 /lpf (RARE); KETONE, URINE NEG (NEG); NITRITE,URINE NEG (NEG); URINE COLOR YELLOW (YELLW/STRAW); URINE LEUKOCYTE ESTERASE NEG (NEG); WAXY CAST, URINE 1 /lpf
[2017-05-30] MEDS: RESP: ALBUTEROL 2.5 MG/IPRATROPIUM 0.5 MG NEB (SCH) NEB ×4 (04:04→22:29)
[2017-05-30] MEDS: metroNIDAZOLE 500 MG INJ 100 ML IV SCH ×3 (04:17→20:42)
[2017-05-30 05:24] LABS: CALCIUM 8.4 MG/DL (8.5-10.1); CREATININE 2.56 MG/DL (0.60-1.30); TROPONIN I 0.18 NG/ML (0.02-0.05)
[2017-05-30] MEDS: LEVOTHYROXINE SODIUM 25 MCG TAB PO SCH (06:04)
[2017-05-30] MEDS: LEVOTHYROXINE SODIUM 112 MCG TAB PO SCH (06:04)
[2017-05-30] MEDS: INSULIN ASPART SUPPLEMENTAL SCALE SQ SCH ×4 (08:00→20:38)
[2017-05-30] MEDS: CARBAMIDE PEROXIDE 6.5% OTIC SOLN 15 ML BTL EACH EAR SCH (09:00)
[2017-05-30] MEDS ORDERED: LOSARTAN 25 MG TAB PO SCH (09:00)
[2017-05-30] MEDS: DOCUSATE SODIUM 50 MG/SENNA 8.6 MG TAB PO SCH ×2 (09:05→20:38)
[2017-05-30] MEDS: HEPARIN SODIUM - SQ 10,000 UNITS/ML VIAL SQ SCH (09:05)
[2017-05-30] MEDS: SODIUM CHLORIDE 0.9% FLUSH 10 ML FLUSH IV FLUSH SCH ×2 (09:06→20:38)
[2017-05-30] MEDS: prednisoLONE ACETATE 1% OPHT SUSP 5 ML BTL RIGHT EYE SCH ×2 (09:06→20:45)
[2017-05-30] MEDS: RIVAROXABAN 20 MG TAB PO SCH (12:28)
--- NOTE | 2017-05-30 12:51 | HHI.FPPN ---
Subjective Remarks No acute events overnight. Pt lying in bed. Reports the last thing he remembered was watching TV and waking up in the hospital. Discussed with patient about the results of brain MRI scan- left MCA infarct. Speaking clearly this morning. Reports that he has baseline tremors in his right arm. Feels that he regained full strength in his b/l arms. Unable to urinate since admission Currently on 2L O2 N/c Denies CP, SOB, abdominal pain, N/V When discussing code status, patient wants to be full code in the immediate setting, but in the long-term setting patient does not want mechanical ventilation and feeding tube. (Nina Javier MD R1) Objective Vitals Vital Signs Date Time Temp Pulse Resp B/P (MAP) Pulse Ox O2 Delivery O2 Flow Rate FiO2 05/30/17 12:08 98.8 95 20 104/69 (81) 95 05/30/17 08:08 99.4 89 20 168/77 (107) 99 05/30/17 05:06 88 05/30/17 04:28 97.4 84 22 127/60 (82) 92 05/30/17 00:00 99.4 88 20 127/64 (85) 92 05/29/17 21:36 93 Nasal Cannula 4.00 05/29/17 20:00 100.6 86 18 109/59 (76) 99 05/29/17 17:00 100.5 92 20 100/60 (73) 92 05/29/17 16:50 05/29/17 16:39 90 18 168/62 (97) 96 Nasal Cannula 4.00 05/29/17 14:21 86 18 174/96 (122) 96 Nasal Cannula 4.00 05/29/17 13:33 90 20 96 Nasal Cannula 4.00 I/O 05/29/17 05/29/17 05/29/17 05/30/17 05/30/17 05/30/17 07:00 15:00 23:00 07:00 15:00 23:00 Intake Total 100 ml 910 ml Output Total 1500 ml Balance 100 ml -590 ml Intake Oral 0 ml IV Total 100 ml 910 ml Output Urine Total 1500 ml (Nina Javier MD R1) Result Diagram: 05/29/17 1335 05/30/17 0423 Objective Remarks GENERAL: elderly man, lying in bed, in NAD SKIN: No rashes, ecchymoses or lesions. Cool and dry. HEAD: Atraumatic. Normocephalic. EYES: legally blind, yellow crusting of both eyes ENT: dental caries, dry crusting of lips NECK: Trachea midline. No JVD or lymphadenopathy. CARDIOVASCULAR: Regular rate and rhythm without murmurs, gallops, or rubs. RESPIRATORY: Clear to auscultation. Breath sounds equal bilaterally. No wheezes , rales, or rhonchi. GASTROINTESTINAL: protuberant abdomen, tenderness to palpation in lower quadrants, distended bladder MUSCULOSKELETAL: Left leg wrapped in rivera bandage, right great toe and fifth toe amputation, skin is erythematous, dry, several ulcers on lower extremities NEUROLOGICAL: Alert, Awake, oriented x3, able to follow commands and speak clearly. Symmetric smile. Sensation intact in face. Strength of right hand 4/5 , left hand 3-4/5. No sensation in lower extremities. (Nina Javier MD R1) A/P Assessment and Plan 67 year old male with CHF (EF 35%), HTN, CKD stage 3, CAD s/p 3 vessel CABG, Afib on xarelto, HTN, HLD, DM admitted for stroke workup. Brain MRI demonstrated acute infarct of posterior left MCA. Currently on empiric antibiotics due to meeting sepsis criteria. (Nina Javier MD R1) Attending Attestation Medical rounds were performed this morning with medical residents, case discussed in detail,EMR reviewed, patient seen and examined, agree with above documentation, see Orders.Patients condition much improved since admission (Edison Jimenez MD) Problem List: (1) Ischemic stroke ICD Codes: I63.9 - Cerebral infarction, unspecified Plan: Patient presents with aphasia and left-sided weakness upon arrival to ED. Difficult to establish time of onset,patient most likely outside of window for TPA. Brain MRI demonstrated increased signal in the posterior left MCA distribution on the diffusion of weighted images characteristic of an acute or subacute infarct. Currently on mass shift or evidence hemorrhage. s/p 300mg aspirin rectally and Heparin 5000 units q12h Xarelto 20mg PO restarted 05/30 Troponin at 0.09 (baseline), 0.13, 0.18 EKG revealed sinus rhythm, nonspecific T wave abnormalities Neurology consulted, recs appreciated. Stroke precautions ordered: head of bed flat for 12 hours, allow permissive HTN up to 220/120 Nursing bedside swallow eval ordered Speech therapy consulted PT and OT consulted Rehab Medicine consulted (2) Sepsis ICD Codes: A41.9 - Sepsis Status: Acute Plan: Patient meets sepsis criteria with leukocytosis (WBC of 12.7), tachycardia (92), and low grade fever (100.5). Patient has allergy to PCN. Continue Vancomycin 1500 mg IV, pharmacy consulted for renal dosage, appreciate recs Continue Cipro 400mg IV q18h Continue Flagly 500mg IV q8h Blood cultures no growth in 1 day UA bacteria present, urine culture pending (3) Congestive heart failure ICD Codes: I50.9 - Heart failure, unspecified Status: Acute Plan: Echo form 03/14/17 demonstrated 35% ejection fraction CXR revealed cardiomegaly and stable compared to CXR 05/22/17, which revealed slight blunting of the left costophrenic sulcus suggesting a small left pleural effusion BNP 53 2D echo with Doppler ordered (4) Rhabdomyolysis ICD Codes: M62.82 - Rhabdomyolysis Plan: Elevated creatine kinase 2533 most likely due to tremors Creatine trending up NS 125mls/hr Continue to monitor Nephrology consulted, recs appreciated (5) Chronic kidney disease, stage 3 ICD Codes: N18.3 - Chronic kidney disease, stage 3 (moderate) Plan: Bun 51 and creatinine elevated at 2.48, trending up Continue to monitor NS increased to 125mls/hr Nephrology consulted, recs appreciated (6) Neurogenic bladder ICD Codes: N31.9 - Neuromuscular dysfunction of bladder, unspecified Plan: Neurogenic bladder due to stroke -place Conde catheter (7) Atrial fibrillation ICD Codes: I48.91 - Atrial fibrillation Status: Chronic Plan: -Xarelto 20mg PO daily (8) Hypertension ICD Codes: I10 - Hypertension Status: Chronic Plan: -Held home meds to allow for permissive HTN (9) Hyperlipidemia ICD Codes: E78.5 - Hyperlipidemia Status: Chronic Plan: -Continue Atorvastatin 40mg PO HS (10) Hypothyroidism ICD Codes: E03.9 - Hypothyroidism, unspecified Status: Chronic Plan: -Continue Levothyroxine 112mcg PO daily (11) Diabetes ICD Codes: E11.9 - Diabetes Status: Chronic Plan: -Low dose SS -Held home insulin (12) Nutrition, metabolism, and development symptoms ICD Codes: R63.8 - Other symptoms and signs concerning food and fluid intake Status: Acute Plan: Fluids: 125 mls/hr NS Diet: NPO, nursing bedside swallow eval Electrolytes: monitor and replace as needed neuro checks q4h, vitals q4, monitor I & Os Case Management Consulted (Nina Javier MD R1) Problem Qualifiers (1) Congestive heart failure: Qualified Codes: I50.9 - Heart failure, unspecified Nina Javier MD R1 May 30, 2017 12:51 Edison Jimenez MD May 30, 2017 16:03
--- NOTE | 2017-05-30 14:06 | MB ---
cc: EBONY PARKER M.D. DATE OF CONSULTATION 05/30/2017 HISTORY OF PRESENT ILLNESS The patient is a 67-year-old seen in neurological consultation in regards to altered mentation. He comes from a nursing facility and he has an extensive medical history. He is diabetic and had coronary artery disease, atrial fibrillation, hypertension and, hyperlipidemia. He is status post heart bypass surgery and bilateral toe amputation. It appears that he has been on Xarelto, Seroquel, insulin, levothyroxine and on multiple other supportive medications. He was in the hospital recently because of CHF exacerbation. His ejection fraction is about 35%. There was some question about weakness on the right side and difficulty with his speech. Normally he speaks clearly and is talk active, uses a wheelchair to propel himself. He seems to recognize the environment and the staff. I spoke to the health care surrogate who arrived and had some information on his overall condition. NEUROLOGICAL EXAMINATION On exam the patient is awake with some shivering and tremoring but not seizure-like activity. The tremor involved the left more than right upper extremity. Increased muscle tone. He responds to simple questions and verbalizes some simple words and seems to be oriented to his age and name. He would start following simple commands. He has some bilateral hand contractures involving the ulnar distribution and probably some weakness in the median nerve distribution. He was able to raise the arms and with my assistance he started raising the legs. He has extensive bruising and some ulcerations on the right leg. There was a bandage on the left leg. He has big toe amputation apparently bilaterally but I saw the right only. He actually seems to have a knee reflex though he was painful on this. Elbow reflex is questionably present. Unable to do a plantar stimulation. The left pupil is round and reactive. He was able to count fingers with some difficulty due to difficulty expressing himself. There was right corneal opacification and blindness. IMAGING STUDIES The imaging studies are remarkable for an MRI brain showing a suggestion of an acute left middle cerebral artery infarct. The carotid ultrasound shows plaquing bilaterally suggesting moderate stenosis. The head MRA was degraded due to motion. The CT brain was negative. LABORATORY DATA Chemistry yesterday showed BUN 51, creatinine 2.48, glucose 129, TSH normal. Total CPK yesterday 2533. WBC 12.7, hemoglobin 11.2, platelet count 197. ASSESSMENT 1. Left middle cerebral artery ischemic stroke, acute. 2. Multiple extensive medical problems including coronary artery disease, atrial fibrillation, diabetes and paraparesis. RECOMMENDATIONS He is now probably aphasic and is continuing with the Xarelto along with a statin. Calf condition make him not a candidate for SCD. Heparin 5000 subcu q.12h. He was given aspirin yesterday and probably could continue with aspirin suppository daily. Prognosis is rather guarded considering the multiplicity of underlying medical problems and the new stroke in question. There is possible significant carotid disease, though I do not think he is a good candidate for further imaging evaluation of the carotids at this point. I will follow the neurological course. Rehab is already initiated. Thank you for asking us to assist in his care. Ebony Parker MD [facility]/BT /12:21 PM /1:49 PM
[2017-05-30] MEDS: CIPROFLOXACIN 400 MG PREMIX 200 ML IV SCH (15:34)
[2017-05-30 15:58] LABS: AUTOMATED NEUTROPHIL # 9.5 TH/MM3 (1.8-7.7); BASOPHIL # 0.1 TH/MM3 (0-0.2); BASOPHIL % 0.8 % (0.0-2.0); EOSINOPHIL # 0.1 TH/MM3 (0-0.4); EOSINOPHIL % 0.7 % (0.0-4.0); HEMATOCRIT 31.2 % (39.0-51.0); HEMOGLOBIN 10.2 GM/DL (13.0-17.0); LYMPH % 7.2 % (9.0-44.0); LYMPHOCYTE # 0.8 TH/MM3 (1.0-4.8); MEAN CELL VOLUME 82.1 FL (80.0-100.0); MEAN CORPUSCULAR HEMOGLOBIN 26.9 PG (27.0-34.0); MEAN CORPUSCULAR HGB CONC 32.8 % (32.0-36.0); MEAN PLATELET VOLUME 8.9 FL (7.0-11.0); MONO % 9.7 % (0.0-8.0); MONOCYTE # 1.1 TH/MM3 (0-0.9); NEUT % 81.6 % (16.0-70.0); PLATELET COUNT 155 TH/MM3 (150-450); WHITE BLOOD COUNT 11.7 TH/MM3 (4.0-11.0)
--- NOTE | 2017-05-30 17:14 | MB ---
cc: JORGE LUIS WOODS MD DATE OF CONSULTATION: 05/30/17 REASON FOR CONSULTATION Chronic kidney disease with acute kidney injury. HISTORY OF PRESENT ILLNESS This is a 67-year-old male with a past medical history of ischemic heart disease, congestive heart failure, chronic kidney disease, atrial fibrillation, chronic anemia, diabetes mellitus, hypothyroidism, and peripheral vascular disease who was admitted with a complaint of worsening shortness of breath. I was called to see the patient because of elevated BUN and creatinine. The patient has known history of chronic kidney disease and his baseline creatinine seems to be in the range of 1.3-1.5 most of the time, and he came with a creatinine of 2.4 and it is 2.5 now. The patient is getting some IV fluid. He is not eating well. He is on a thickened liquid diet. The patient is not able to give much history. He is confused, he does not know how long he has been here and he is not oriented in the time. He just knows that he is in the hospital and able to tell his name. The patient also does not know why he was sent here. Most of the history was taken from the patient's chart according to which he lives in a nursing facility, and he was sent in here because of worsening shortness of breath and there was some confusion and there was concern for a stroke. The patient was initially less responsive but then started to respond more. He had a CT scan of the brain done in the emergency department and it shows that he has no acute intracranial abnormality. The patient is currently with nasal cannula 2 liters and saturating well. He does not have the Conde catheter, it is going to be placed now. PAST MEDICAL HISTORY 1. Hypertension. Diabetes mellitus. 2. Ischemic heart disease. 3. Congestive heart failure. 4. Atrial fibrillation. 5. Chronic kidney disease. 6. Hyperlipidemia. 7. Hypothyroidism. PAST SURGICAL HISTORY 1. Coronary artery bypass grafting in 2007. 2. Bilateral cataract surgery. 3. Right great toe amputation. 4. Right fifth toe amputation. REVIEW OF SYSTEMS Review of systems is limited since the patient is confused. Denies any chest pain. He has mild shortness of breath. Not eating well. Has decreased appetite. He is legally blind from the right eye. Has been passing urine. SOCIAL HISTORY The patient lives in a nursing facility. There is no history of smoking or alcoholism. He has a past history of smoking, stopped a long time ago. FAMILY HISTORY Positive for diabetes and hypertension. ALLERGIES HE IS ALLERGIC TO MULTIPLE MEDICATIONS INCLUDING: ACETAMINOPHEN, DIATRIZOATE, GADOBENIC ACID, IODINE DYE, PENICILLIN G. MEDICATIONS Currently he is on following medications. 1. Normal saline at 125/hr. 2. Kimberly-Colace one tablet b.i.d. 3. ____ 6.5 mg. 4. Xarelto 20 mg once a day. 5. Aspirin 300 mg rectally. 6. Synthroid 112 mcg daily and 125 mcg daily. 7. Lipitor 40 mg daily. 8. Seroquel 25 mg q.h.s. 9. DuoNeb nebulizer. 10. Ciprofloxacin 400 mg IV q.18 hours. 11. Metronidazole 500 mg IV q.8 hours. 12. Insulin aspart sliding scale. 13. He was given one dose of Vancomycin. 14. Zofran as needed. PHYSICAL EXAMINATION GENERAL: On examination the patient is awake, alert. He is not oriented and not in acute distress. VITAL SIGNS: His last blood pressure is 104/69, temperature 98.8, oxygen saturation on 2 liters nasal cannula is 98%. HEAD, EYES, EARS, NOSE AND THROAT: Pupil is mid constricted on the left side. On the right he has opacity of the cornea with legal blindness. Conjunctivae are pale. NECK: Supple. JVD is not elevated. LUNGS: The patient has bilateral good air entry with occasional wheezing. HEART: S1, S2. Regular rhythm. ABDOMEN: Abdomen is distended, soft, lax, nontender. EXTREMITIES: He has dryness and scaling of his right leg and the left leg is covered with a dressing below the knee. INVESTIGATION WBC count is 12.7, hemoglobin 11.2, platelet count of 197, neutrophils 80.6%. Sodium 146, potassium 3.7, chloride 110, bicarb 29, BUN 55, creatinine 2.5, calcium 8.4, trop-I 0.18, creatine kinase 2533, MB 7.7. Urinalysis showing that he has no proteinuria with rare bacteria. Cultures are all negative. IMAGING STUDIES The patient had a CT scan of the brain which was unremarkable. CT scan of the abdomen and pelvis was done without IV contrast and it shows a 2.3 cm lesion in the lower pole of the right kidney not clearly a cyst, possibility of solid mass, a small hiatal hernia, distended bladder, calcified gallstones. This was done yesterday evening. MRI of the brain was done which shows there is increased signal in the posterior left MCA. ASSESSMENT AND PLAN 1. Chronic kidney disease, acute kidney injury. 2. Confusion with possibility of a stroke. 3. Rule out sepsis with increased WBC. 4. Hypertension. 5. Diabetes mellitus. 6. History of congestive heart failure. 7. Hypothyroidism. 8. Diabetes mellitus. The patient has chronic kidney disease with most likely history of hypertensive or diabetic renal disease and now developed acute kidney injury. The etiology of acute kidney injury could be related to either obstructive uropathy or possibility of ATN or possibility of rhabdomyolysis with increased CPK. The patient has been nonoliguric. His bladder was distended on the ultrasound and the CT scan and he is getting a Conde catheter now. The patient has a cyst in the right kidney which is possibly a mass, need further evaluation possibly with an MRI once his GFR is better. At present, I agree with continuing the antibiotics, follow the culture results, avoid any nephrotoxins. Thank you for the consultation. I will follow the patient while he is in the hospital. MD ROBY Mckeon/LIZETTE /4:01 PM /4:27 PM
--- NOTE | 2017-05-30 18:17 | PD.WCN.NOT ---
Wound Consult Description: Patient seen for wound management of legs Communicated with: LUDA small and spoke with Doctor Eko resident for orders Recommendation: 1. Please cleanse wounds to bilateral heels with normal saline only and apply optifoam basic non adhesive dressing over wounds and secure with rolled gauze tape change dressing every 2 days or PRN if saturated or dislodged . 2. Apply skin prep to R lateral foot and L medial foot DTIs BID and leave open to air 3 [place] scabs on toes with skin prep and leave open to air BID 4. Cleanse wound to L lateral foot with normal saline and apply Maxorb II ( Calcium alginate) dressing packed loosely in to wound bed, cover with dry 4x4 gauze pads and secure dressing with rolled gauze and tape. Change dressing every 2 days or PRN if saturated or dislodged. 5.Obtain heel raiser boots for patient. 6. Cleanse buttock area gently with soap and water, rinse and pat dry. Apply Calazime barrier cream in a thick layer and leave buttock open to air BID. 7. Turn patient every 2 hours and PRN for comfort. Additional Information: Patient seen on [address] [place] [address] evaluation of wound management of legs. Bilateral lower extremities are noted with dressings in place. Dressings removed to reveal wounds with some barrier cream in place to bilateral lower legs. small healing skin. ART GALLERY DIRECTOR in room for assistance. R heel wound is noted measuring 1.2cm x 1.3 x~0.1cm Wound bed presents with ~90 % red tissue and ~10% thin black tissue.Wound is noted as stage 3 pressure injury. Cleansed wound with normal saline. Wound has minimal serous drainage without odor. Wound margins are well defined and attached. Periwound is noted with hyperkeratotic tissue and dry peeling skin. Applied Optifoam basic secured with rolled gauze and tape. Removed dressing from L heel to reveal stage 3 pressure injury. Wound bed presents with ~90% red tissue and ~10% black tissue. Wound measures 0.5cm x1cm x ~0.1cm. Wound margins are well defined and attached. Periwound is noted with hyperkeratotic tissue and dry peeling skin.Wound has minimal serous drainage without odor.Cleansed wound with normal saline and covered wound with Optifoam basic non adhesive dressing, secured with rolled gauze and tape. Non blanchable areas of purple discoloration are noted to R lateral foot and L medial foot, indicating deep tissue injuries. Applied skin prep tp DTIS and left open to air.DTI to L medial foot measures ~0.7cm x~ 0.9cm. R lateral foot DTI measures ~1cm x ~0.5cm. L lateral foot open wound measures 3cm x 2cm x ~<0.4cm. Wound bed presents with ~80% red vascular granulation tissue and ~20% white tissue. Cleansed wound with normal saline. Wound noted with slight odor when dressing removed, but dissipated after cleaning wound with normal saline.Periwound is unremarkable. Wound margins are steep, even and well defined. Packed wound loosely with Maxorb II calcium alginate and covered with gauze pads, secured with rolled gauze and tape. Scabs on R second and third toe and were left open to air and skin prep was applied R leg presents with small diffuse open shallow ulcerations on R anterior fleming.Cleansed all shallow ulcerations with normal saline and pat dry. Applied oil emulsion gauze over shallow dry ulcerations with 100% pink tissue. Covered with dry 4x4 gauze and secured with rolled gauze and tape. Tiara Ellsworth [facility] May 30, 2017 18:17
[2017-05-30] MEDS: ASPIRIN 300 MG SUPP RECTAL SCH (19:36)
[2017-05-30] MEDS: SODIUM CHLOR 0.9% 1000 ML INJ 1,000 ML IV SCH (19:40)
[2017-05-30] MEDS: QUEtiapine FUMARATE 25 MG TAB PO SCH (20:38)
[2017-05-30] MEDS: ATORVASTATIN 40 MG TAB PO SCH (20:38)
[2017-05-31] VITALS (9 sets, daily range): BP systolic 101–153; BP diastolic 54–63; PULSE 83–108; RESP 18–20; TEMP 97.3–100.5; O2SAT 94–100
[2017-05-31] MEDS: metroNIDAZOLE 500 MG INJ 100 ML IV SCH ×3 (04:55→22:03)
[2017-05-31] MEDS: SODIUM CHLOR 0.9% 1000 ML INJ 1,000 ML IV SCH ×3 (04:55→18:15)
[2017-05-31] MEDS: RESP: ALBUTEROL 2.5 MG/IPRATROPIUM 0.5 MG NEB (SCH) NEB ×4 (05:16→21:20)
[2017-05-31] MEDS: LEVOTHYROXINE SODIUM 25 MCG TAB PO SCH (06:23)
[2017-05-31] MEDS: LEVOTHYROXINE SODIUM 112 MCG TAB PO SCH (06:23)
--- NOTE | 2017-05-31 07:20 | HHI.PR ---
Review/Management Daily Summary 05/31 more alert and responsive this am better orientation, appeared alert after awakened mri seen, left mca acute infarct continue current care Subjective Subjective Comments No acute events reported No headache No chest pain No dyspnea Active Medications Current Medications Medications (Trade) Dose Ordered Sig/Gucci Route Start Time Stop Time Status Last Admin (NS Flush) 2 ml UNSCH PRN IV FLUSH 05/29/17 16:00 (NS Flush) 2 ml BID IV FLUSH 05/29/17 21:00 05/30/17 09:06 (Zofran Inj) 4 mg Q6H PRN IVP 05/29/17 16:00 (Narcan Inj) 0.4 mg UNSCH PRN IV PUSH 05/29/17 16:00 (Kimberly-Colace) 1 tab BID PO 05/29/17 21:00 05/30/17 20:38 (Milk Of Magnesia Liq) 30 ml Q12H PRN PO 05/29/17 16:00 (Senokot) 17.2 mg Q12H PRN PO 05/29/17 16:00 (Dulcolax Supp) 10 mg DAILY PRN RECTAL 05/29/17 16:00 (Lactulose Liq) 30 ml DAILY PRN PO 05/29/17 16:00 (Albuterol Neb) 2.5 mg Q2HR NEB PRN NEB 05/29/17 16:15 (Xanax) 0.25 mg Q6H PRN PO 05/29/17 16:15 (Lipitor) 40 mg HS PO 05/29/17 21:00 05/30/17 20:38 (Debrox 6.5% Otic) 5 drop DAILY EACH EAR 05/30/17 09:00 (Atarax) 25 mg Q6H PRN PO 05/29/17 16:15 (Duoneb Neb) 1 ampule Q6HR NEB NEB 05/29/17 18:00 05/31/17 05:16 (Nitrostat Sl) 0.4 mg ONCE PRN SL 05/29/17 16:15 06/01/17 16:14 (Pred Forte 1% Opth Susp) 1 drop BID RIGHT EYE 05/29/17 21:00 05/30/17 20:45 (SEROquel) 25 mg HS PO 05/29/17 21:00 05/30/17 20:38 (Synthroid) 112 mcg DAILY@0600 PO 05/30/17 06:00 05/31/17 06:23 (D50w (Vial) Inj) 50 ml UNSCH PRN IV PUSH 05/29/17 16:45 (Glucagon Inj) 1 mg UNSCH PRN OTHER 05/29/17 16:45 (NovoLOG SUPPLEMENTAL SCALE) 1 ACHS SLIDING SCALE SQ 05/29/17 17:00 (Synthroid) 25 mcg DAILY@0600 PO 05/30/17 06:00 05/31/17 06:23 Pharmacy Profile Note 0 ml @ 0 mls/hr UNSCH OTHER 05/29/17 18:30 Metronidazole 100 ml @ 100 mls/hr Q8H IV 05/29/17 20:00 05/31/17 04:55 (Vasotec Inj) 1.25 mg Q4H PRN IV PUSH 05/29/17 20:00 Ciprofloxacin/ Dextrose 200 ml @ 200 mls/hr Q18H IV 05/29/17 22:00 05/30/17 15:34 (Xarelto) 20 mg DAILY PO 05/30/17 11:00 05/30/17 12:28 Sodium Chloride 1,000 ml @ 125 mls/hr Q8H IV 05/30/17 10:15 05/31/17 04:55 (Aspirin Supp) 300 mg DAILY RECTAL 05/30/17 14:00 05/30/17 19:36 Allergies Allergies Coded Allergies Iodinated Contrast- Oral and IV Dye (Verified Allergy, Severe, Anaphylaxis, ) acetaminophen (Unverified Allergy, Severe, "LIVER PROBLEMS", 05/29/17) diatrizoate meglumine (Unverified Allergy, Severe, Anaphylaxis, 05/29/17) gadobenic acid (Unverified Allergy, Severe, Anaphylaxis, 05/29/17) gadodiamide (Unverified Allergy, Severe, Anaphylaxis, 05/29/17) gadoteridol (Unverified Allergy, Severe, Anaphylaxis, 05/29/17) iodixanol (Unverified Allergy, Severe, Anaphylaxis, 05/29/17) iohexol (Unverified Allergy, Severe, Anaphylaxis, 05/29/17) penicillin G (Unverified Allergy, Severe, "HOT THROAT", 05/29/17) Uncoded Allergies RADIOISOTOPES ( Allergy, Severe, 09/27/13) Exam I&O / VS Vital Signs Date Time Temp Pulse Resp B/P (MAP) Pulse Ox O2 Delivery O2 Flow Rate FiO2 05/31/17 04:00 98.2 88 18 101/56 (71) 98 05/31/17 00:00 99.2 83 18 132/61 (84) 98 05/31/17 00:00 87 05/30/17 22:29 97 Nasal Cannula 2.00 05/30/17 20:05 91 05/30/17 20:00 99.6 94 18 119/58 (78) 97 05/30/17 16:07 100.3 98 21 173/96 (121) 94 05/30/17 16:00 96 05/30/17 12:08 98.8 95 20 104/69 (81) 95 05/30/17 12:00 89 05/30/17 08:22 98 Nasal Cannula 2.00 05/30/17 08:08 99.4 89 20 168/77 (107) 99 05/30/17 08:00 87 Objective Radiology Results Laboratory Tests Test 05/29/17 13:33 05/29/17 13:35 05/29/17 13:40 05/29/17 14:23 Total Creatine Kinase 642 U/L (39-308) Creatine Kinase MB 3.9 NG/ML (0.5-3.6) White Blood Count 12.7 TH/MM3 (4.0-11.0) Red Blood Count 4.16 MIL/MM3 (4.50-5.90) Hemoglobin 11.2 GM/DL (13.0-17.0) Hematocrit 34.7 % (39.0-51.0) Red Cell Distribution Width 19.9 % (11.6-17.2) Neutrophils (%) (Auto) 80.6 % (16.0-70.0) Lymphocytes (%) (Auto) 7.1 % (9.0-44.0) Monocytes (%) (Auto) 10.5 % (0.0-8.0) Neutrophils # (Auto) 10.2 TH/MM3 (1.8-7.7) Lymphocytes # (Auto) 0.9 TH/MM3 (1.0-4.8) Monocytes # (Auto) 1.3 TH/MM3 (0-0.9) Prothrombin Time 12.0 SEC (9.8-11.6) Blood Urea Nitrogen 51 MG/DL (7-18) Creatinine 2.48 MG/DL (0.60-1.30) Random Glucose 129 MG/DL (74-106) Albumin 2.8 GM/DL (3.4-5.0) Aspartate Amino Transf (AST/SGOT) 39 U/L (15-37) Estimat Glomerular Filtration Rate 26 ML/MIN (>89) Troponin I 0.09 NG/ML (0.02-0.05) Blood Gas HCO3 27 mmol/L (22-26) Blood Gas Base Excess 4.8 mmol/L (-2-2) Arterial Blood pH 7.64 (7.380-7.420) Arterial Blood Partial Pressure CO2 25 mmHg (38-42) Test 05/29/17 20:53 05/30/17 01:00 05/30/17 04:23 05/30/17 14:52 Total Creatine Kinase 2533 U/L (39-308) Creatine Kinase MB 7.7 NG/ML (0.5-3.6) Troponin I 0.13 NG/ML (0.02-0.05) 0.18 NG/ML (0.02-0.05) Urine Bacteria RARE /hpf (NONE) Blood Urea Nitrogen 55 MG/DL (7-18) Creatinine 2.56 MG/DL (0.60-1.30) Calcium Level 8.4 MG/DL (8.5-10.1) Sodium Level 146 MEQ/L (136-145) Chloride Level 110 MEQ/L (98-107) Estimat Glomerular Filtration Rate 25 ML/MIN (>89) White Blood Count 11.7 TH/MM3 (4.0-11.0) Red Blood Count 3.80 MIL/MM3 (4.50-5.90) Hemoglobin 10.2 GM/DL (13.0-17.0) Hematocrit 31.2 % (39.0-51.0) Mean Corpuscular Hemoglobin 26.9 PG (27.0-34.0) Red Cell Distribution Width 20.0 % (11.6-17.2) Neutrophils (%) (Auto) 81.6 % (16.0-70.0) Lymphocytes (%) (Auto) 7.2 % (9.0-44.0) Monocytes (%) (Auto) 9.7 % (0.0-8.0) Neutrophils # (Auto) 9.5 TH/MM3 (1.8-7.7) Lymphocytes # (Auto) 0.8 TH/MM3 (1.0-4.8) Monocytes # (Auto) 1.1 TH/MM3 (0-0.9) Last [address] 05/29/17 1726 Signed Impressions: Service Date/Time: May 18:08 - CONCLUSION: 1. No acute intracranial abnormalities. Nilson Jeffries MD Micro and Labs Laboratory Tests Test 05/30/17 14:52 White Blood Count 11.7 Red Blood Count 3.80 Hemoglobin 10.2 Hematocrit 31.2 Mean Corpuscular Volume 82.1 Mean Corpuscular Hemoglobin 26.9 Mean Corpuscular Hemoglobin Concent 32.8 Red Cell Distribution Width 20.0 Platelet Count 155 Mean Platelet Volume 8.9 Neutrophils (%) (Auto) 81.6 Lymphocytes (%) (Auto) 7.2 Monocytes (%) (Auto) 9.7 Eosinophils (%) (Auto) 0.7 Basophils (%) (Auto) 0.8 Neutrophils # (Auto) 9.5 Lymphocytes # (Auto) 0.8 Monocytes # (Auto) 1.1 Eosinophils # (Auto) 0.1 Basophils # (Auto) 0.1 CBC Comment DIFF FINAL Differential Comment Date/Time Source Procedure Growth Status 05/29/17 13:40 Blood Peripheral Aerobic Blood Culture - Preliminary NO GROWTH IN 1 DAY Resulted 05/29/17 13:40 Blood Peripheral Anaerobic Blood Culture - Preliminary NO GROWTH IN 1 DAY Resulted 05/30/17 01:00 Urine Catheterized Urine Urine Culture Pending Received Bhavana Parker MD May 31, 2017 07:20
[2017-05-31] MEDS: INSULIN ASPART SUPPLEMENTAL SCALE SQ SCH ×4 (08:00→22:23)
[2017-05-31] MEDS: RIVAROXABAN 20 MG TAB PO SCH (08:34)
[2017-05-31] MEDS: ASPIRIN 300 MG SUPP RECTAL SCH (08:34)
[2017-05-31] MEDS: DOCUSATE SODIUM 50 MG/SENNA 8.6 MG TAB PO SCH ×2 (08:34→21:00)
[2017-05-31] MEDS: SODIUM CHLORIDE 0.9% FLUSH 10 ML FLUSH IV FLUSH SCH ×2 (08:34→21:00)
[2017-05-31] MEDS: prednisoLONE ACETATE 1% OPHT SUSP 5 ML BTL RIGHT EYE SCH ×2 (08:35→22:03)
--- NOTE | 2017-05-31 09:39 | EKG ---
Date Performed: 05/30/2017 Time Performed: 04:55:54 PTAGE: 67 years EKG: Sinus rhythm with PVC(s) with PAC(s) Poor R wave progression - probable normal variant Inferior/lateral ST-T barboza ges may be due to myocardial ischemia Abnormal ECG PREVIOUS TRACING : 05/29/2017 13.47 DOCTOR: Juventino Rodriguez Interpretating Date/Time 05/31/2017 09:38:20
[2017-05-31] MEDS: CARBAMIDE PEROXIDE 6.5% OTIC SOLN 15 ML BTL EACH EAR SCH (10:24)
[2017-05-31] MEDS: CIPROFLOXACIN 400 MG PREMIX 200 ML IV SCH (10:24)
[2017-05-31] MEDS ORDERED: SOD PHOSPHATE/SOD BIPHOSPHATE (ADULT) ENEMA 133ML RECTAL ONE (10:30)
[2017-05-31 11:06] LABS: AUTOMATED NEUTROPHIL # 8.4 TH/MM3 (1.8-7.7); BASOPHIL % 0.2 % (0.0-2.0); EOSINOPHIL # 0.1 TH/MM3 (0-0.4); EOSINOPHIL % 1.1 % (0.0-4.0); HEMATOCRIT 32.2 % (39.0-51.0); HEMOGLOBIN 10.3 GM/DL (13.0-17.0); LYMPH % 6.2 % (9.0-44.0); LYMPHOCYTE # 0.6 TH/MM3 (1.0-4.8); MEAN CELL VOLUME 83.4 FL (80.0-100.0); MEAN CORPUSCULAR HEMOGLOBIN 26.8 PG (27.0-34.0); MEAN CORPUSCULAR HGB CONC 32.1 % (32.0-36.0); MEAN PLATELET VOLUME 8.2 FL (7.0-11.0); MONO % 9.5 % (0.0-8.0); PLATELET COUNT 148 TH/MM3 (150-450); RED BLOOD COUNT 3.86 MIL/MM3 (4.50-5.90); RED CELL DISTRIBUTION WIDTH 19.6 % (11.6-17.2); WHITE BLOOD COUNT 10.1 TH/MM3 (4.0-11.0)
[2017-05-31 11:26] LABS: ALBUMIN 2.2 GM/DL (3.4-5.0); ALKALINE PHOSPHATASE 80 U/L (45-117); ALT (GPT) 66 U/L (12-78); AST (GOT) 202 U/L (15-37); BICARBONATE 26.8 MEQ/L (21.0-32.0); BLOOD UREA NITROGEN 30 MG/DL (7-18); CHLORIDE 115 MEQ/L (98-107); CREATININE 1.72 MG/DL (0.60-1.30); GLOMERULAR FILTRATION RATE 40 ML/MIN (>89); GLUCOSE,RANDOM 132 MG/DL (74-106); RANDOM VANCOMYCIN 9.1 COMMENT; SODIUM (NA) 148 MEQ/L (136-145); TOTAL BILIRUBIN ADULT 0.6 MG/DL (0.2-1.0); TOTAL PROTEIN 6.1 GM/DL (6.4-8.2)
--- NOTE | 2017-05-31 12:18 | HHI.FPPN ---
Subjective Remarks No acute events overnight. Pt lying in bed this AM. On 2L O2 NC. Pt reports doing better this AM. Reports that his arms are still weak, right> left. Has not had BM yet. Usually goes 1-2/day. Interested in fleets enema. Otherwise, no other complaints this AM. Denies CP, SOB, and N/V. (Nina Javier MD R1) Objective Vitals Vital Signs Date Time Temp Pulse Resp B/P (MAP) Pulse Ox O2 Delivery O2 Flow Rate FiO2 05/31/17 12:08 100.5 100 20 146/61 (89) 94 05/31/17 09:44 95 Nasal Cannula 2.00 05/31/17 08:08 97.7 92 20 136/57 (83) 95 05/31/17 04:00 98.2 88 18 101/56 (71) 98 05/31/17 00:00 99.2 83 18 132/61 (84) 98 05/31/17 00:00 87 05/30/17 22:29 97 Nasal Cannula 2.00 05/30/17 20:05 91 05/30/17 20:00 99.6 94 18 119/58 (78) 97 05/30/17 16:07 100.3 98 21 173/96 (121) 94 05/30/17 16:00 96 I/O 05/30/17 05/30/17 05/30/17 05/31/17 05/31/17 05/31/17 07:00 15:00 23:00 07:00 15:00 23:00 Intake Total 910 ml 100 ml 1485 ml 1200 ml Output Total 1500 ml 800 ml 850 ml Balance -590 ml 100 ml 685 ml 350 ml Intake Oral 0 ml 360 ml 100 ml IV Total 910 ml 100 ml 1125 ml 1100 ml Output Urine Total 1500 ml 800 ml 850 ml # Voids 2 # Bowel Movements 0 0 (Nina Javier MD R1) Result Diagram: 05/31/1750 05/31/17 0950 Objective Remarks GENERAL: elderly man, pleasant, lying in bed, in NAD SKIN: scaling and dryness of right and left leg HEAD: Atraumatic. Normocephalic. EYES: legally blind, yellow crusting of both eyes ENT: dental caries, dry crusting of lips NECK: Trachea midline. No JVD or lymphadenopathy. CARDIOVASCULAR: Regular rate and rhythm without murmurs, gallops, or rubs. RESPIRATORY: Clear to auscultation. Breath sounds equal bilaterally. No wheezes , rales, or rhonchi. GASTROINTESTINAL: protuberant abdomen, tenderness to palpation in lower quadrants MUSCULOSKELETAL: contractures of right and left hand, right great toe and fifth toe amputation, skin is erythematous, dry, several ulcers on lower extremities NEUROLOGICAL: Alert, Awake, oriented x3, able to follow commands and speak clearly. Symmetric smile. Sensation intact in face. Strength of right hand 4/5 , left hand 3-4/5. No sensation in lower extremities. (Nina Javier MD R1) A/P Assessment and Plan 67 year old male with CHF (EF 35%), HTN, CKD stage 3, CAD s/p 3 vessel CABG, Afib on xarelto, HTN, HLD, DM admitted for acute infarct of posterior left MCA. Currently on empiric antibiotics due to meeting sepsis criteria. Discharge Planning Unclear timetable at this time PT- return to SNF at [facility] ST- patient will require speech therapy after discharge OT- OT at rehab, SNF (Nina Javier MD R1) Attending Attestation Medical rounds reguarding this patient performed with Dr Amador Javier this morning, detailed discussion relating to patients hospital course held, patient seen and examined, agree to documentation in this note, See Orders (Edison Jimenez MD) Problem List: (1) Ischemic stroke ICD Codes: I63.9 - Cerebral infarction, unspecified Plan: Patient presents with aphasia and left-sided weakness and mild right- sided weakness upon arrival to ED. Difficult to establish time of onset,patient most likely outside of window for TPA. Brain MRI demonstrated increased signal in the posterior left MCA distribution on the diffusion of weighted images characteristic of an acute or subacute infarct. Currently on mass shift or evidence hemorrhage. Neurology consulted, recs appreciated. Continue aspirin 325 mg PO daily Continue Xarelto 20mg PO daily Carotid US: moderate visble plaque in both carotid arteries, findings suggest at least a moderate stenosis. possible significant carotid disease, though not a good candidate for further imaging of the carotids at this point History: Troponin at 0.09 (baseline), 0.13, 0.18 EKG revealed sinus rhythm, nonspecific T wave abnormalities (2) Sepsis ICD Codes: A41.9 - Sepsis Status: Acute Plan: Patient meets sepsis criteria with leukocytosis (WBC of 12.7), tachycardia (92), and low grade fever (100.5). Patient has allergy to PCN. Continue Vancomycin 1500 mg IV, pharmacy consulted for renal dosage, appreciate recs Continue Cipro 400mg IV q18h Continue Flagly 500mg IV q8h Blood cultures NGTD UA bacteria present, urine culture no growth in 24 hours (3) Congestive heart failure ICD Codes: I50.9 - Heart failure, unspecified Status: Acute Plan: Echo form 03/14/17 demonstrated 35% ejection fraction CXR revealed cardiomegaly and stable compared to CXR 05/22/17, which revealed slight blunting of the left costophrenic sulcus suggesting a small left pleural effusion BNP 53 2D echo with Doppler ordered (4) Rhabdomyolysis ICD Codes: M62.82 - Rhabdomyolysis Plan: Elevated creatine kinase 2533 most likely due to tremors Improving NS 125mls/hr Continue to monitor Nephrology consulted, appreciate recs continue abx Avoid nephrotoxins (5) Chronic kidney disease, stage 3 ICD Codes: N18.3 - Chronic kidney disease, stage 3 (moderate) Plan: BUN and Cr improving Continue to monitor Continue fluids NS 125mls/ hr Nephrology consulted, recs appreciated continue abx Follow up cultures avoid nephrotoxins (6) Neurogenic bladder ICD Codes: N31.9 - Neuromuscular dysfunction of bladder, unspecified Plan: Neurogenic bladder due to stroke -Conde catheter placed (7) Atrial fibrillation ICD Codes: I48.91 - Atrial fibrillation Status: Chronic Plan: -Xarelto 20mg PO daily (8) Hypertension ICD Codes: I10 - Hypertension Status: Chronic Plan: -Held home meds to allow for permissive HTN (9) Hyperlipidemia ICD Codes: E78.5 - Hyperlipidemia Status: Chronic Plan: -Continue Atorvastatin 40mg PO HS (10) Hypothyroidism ICD Codes: E03.9 - Hypothyroidism, unspecified Status: Chronic Plan: -Continue Levothyroxine 112mcg PO daily (11) Diabetes ICD Codes: E11.9 - Diabetes Status: Chronic Plan: -Low dose SS -Held home insulin (12) Constipation ICD Codes: K59.00 - Constipation, unspecified Plan: -Fleet Enema 05/31 (13) Nutrition, metabolism, and development symptoms ICD Codes: R63.8 - Other symptoms and signs concerning food and fluid intake Status: Acute Plan: Fluids: 125 mls/hr NS Diet: NPO, nursing bedside swallow eval Electrolytes: monitor and replace as needed neuro checks q4h, vitals q4, monitor I & Os Case Management Consulted (Nina Javier MD R1) Problem Qualifiers (1) Congestive heart failure: Qualified Codes: I50.9 - Heart failure, unspecified Nina Javier MD R1 May 31, 2017 12:18 Edison Jimenez MD Jun 01, 2017 10:54
--- NOTE | 2017-05-31 12:21 | EKG ---
Date Performed: 05/29/2017 Time Performed: 13:47:08 PTAGE: 67 years EKG: Sinus rhythm NONSPECIFIC T-WAVE ABNORMALITY ABNORMAL ECG PREVIOUS TRACING : 05/23/2017 18.16 DOCTOR: Juventino Rodriguez Interpretating Date/Time 05/31/2017 12:19:39
[2017-05-31] MEDS ORDERED: ENALAPRILAT 1.25 MG/ML VIAL IV PUSH PRN (12:30)
[2017-05-31] MEDS: ACETAMINOPHEN 325 MG TAB PO PRN (13:25)
--- NOTE | 2017-05-31 14:22 | HHI.NPPN ---
Subjective General Problems: Anemia, Edema, Hypertension Renal Failure: Chronic, Acute, Stage III History of Present Illness 67-year-old male with a past medical history of ischemic heart disease, congestive heart failure, chronic kidney disease, atrial fibrillation, chronic anemia, diabetes mellitus, hypothyroidism, and peripheral vascular disease who was admitted with a complaint of worsening shortness of breath. I was called to see the patient because of elevated BUN and creatinine. The patient has known history of chronic kidney disease and his baseline creatinine seems to be in the range of 1.3-1.5 most of the time. Additional Remarks Patient is awake, remain confused, not in distress. Objective Data Data Vital Signs Date Time Temp Pulse Resp B/P (MAP) Pulse Ox O2 Delivery O2 Flow Rate FiO2 05/31/17 12:08 100.5 100 20 146/61 (89) 94 05/31/17 09:44 95 Nasal Cannula 2.00 05/31/17 08:08 97.7 92 20 136/57 (83) 95 05/31/17 04:00 98.2 88 18 101/56 (71) 98 05/31/17 00:00 99.2 83 18 132/61 (84) 98 05/31/17 00:00 87 05/30/17 22:29 97 Nasal Cannula 2.00 05/30/17 20:05 91 05/30/17 20:00 99.6 94 18 119/58 (78) 97 05/30/17 16:07 100.3 98 21 173/96 (121) 94 05/30/17 16:00 96 -: 05/31/17 0950 05/31/17 0950 Physical Exam General Appearance: No Acute Distress, Comfortable Eyes Eye Exam: Pupils Equal Throat Throat Exam: Oral Mucosa August & Moist Neck Neck Exam: Neck Supple Pulmonary Resp Exam: Breath Sounds Equal, No Distress, Rhonchi, Decreased Bases Cardiology CV Exam: Regular, Normal Sinus Rhythm Gastrointestinal/Abdomen GI Exam: Soft, Non-Tender, Bowel Sounds Present Extremeties Extremities Exam: Trace Edema (Bilateral scalling and dryness of skin, in lower leg.) Neurologic Neuro Exam: Alert, Awake, Oriented Assessment/Plan Assessment Summary: KATERIN/Acute Renal Failure, Hypertension, CKD Stage III Problem List: (1) Acute kidney injury ICD Codes: N17.9 - Acute kidney failure, unspecified (2) Altered mental status ICD Codes: R41.82 - Altered mental status Status: Acute (3) Hx of deep venous thrombosis ICD Codes: Z86.718 - History of deep venous thrombosis Status: Chronic (4) CHF (congestive heart failure) ICD Codes: I50.9 - Congestive heart failure Status: Resolved (5) Diabetes ICD Codes: E11.9 - Diabetes Status: Chronic (6) Hypothyroidism ICD Codes: E03.9 - Hypothyroidism, unspecified Status: Chronic (7) Hypertension ICD Codes: I10 - Hypertension Status: Chronic (8) Chronic kidney disease, stage 3 ICD Codes: N18.3 - Chronic kidney disease, stage 3 (moderate) (9) Rhabdomyolysis ICD Codes: M62.82 - Rhabdomyolysis Plan Patient has been non oliguric. Has chronic kidney disease with baseline Creatinine 1.3-1.5. Most likely has chronic kidney disease due to Hypertensive or renovascular disease. Now develop KATERIN, possibly due to Rhabdo. or Obstructive uropathy. Creatinine is now improving and it is 1.7. Avoid Nephrotoxins, follow the BMP. Sunita Martin MD May 31, 2017 14:22
[2017-05-31] MEDS ORDERED: VANCOMYCIN 1,500 MG/NS 500 ML IV ONE ×2 (17:00)
[2017-05-31] MEDS: QUEtiapine FUMARATE 25 MG TAB PO SCH (22:02)
[2017-05-31] MEDS: ATORVASTATIN 40 MG TAB PO SCH (22:02)
[2017-06-01] VITALS (19 sets, daily range): BP systolic 130–185; BP diastolic 63–106; PULSE 86–107; RESP 18–22; TEMP 97.9–102.7; O2SAT 91–98
[2017-06-01] MEDS: SODIUM CHLOR 0.9% 1000 ML INJ 1,000 ML IV SCH ×2 (00:56→08:31)
[2017-06-01] MEDS: ACETAMINOPHEN 325 MG TAB PO PRN ×2 (03:23→21:33)
[2017-06-01] MEDS: CIPROFLOXACIN 400 MG PREMIX 200 ML IV SCH ×2 (03:24→20:29)
[2017-06-01] MEDS: RESP: ALBUTEROL 2.5 MG/IPRATROPIUM 0.5 MG NEB (SCH) NEB ×4 (04:54→21:26)
[2017-06-01] MEDS: metroNIDAZOLE 500 MG INJ 100 ML IV SCH ×3 (05:02→20:29)
[2017-06-01] MEDS: LEVOTHYROXINE SODIUM 25 MCG TAB PO SCH (05:03)
[2017-06-01] MEDS: LEVOTHYROXINE SODIUM 112 MCG TAB PO SCH (05:03)
[2017-06-01] MEDS: SODIUM CHLORIDE 0.9% FLUSH 10 ML FLUSH IV FLUSH SCH ×2 (08:11→20:30)
[2017-06-01] MEDS: DOCUSATE SODIUM 50 MG/SENNA 8.6 MG TAB PO SCH ×2 (08:14→20:29)
[2017-06-01] MEDS: ASPIRIN 325 MG TAB PO SCH (08:15)
[2017-06-01] MEDS: INSULIN ASPART SUPPLEMENTAL SCALE SQ SCH ×4 (08:15→20:30)
[2017-06-01] MEDS: RIVAROXABAN 20 MG TAB PO SCH (08:15)
[2017-06-01] MEDS: CARBAMIDE PEROXIDE 6.5% OTIC SOLN 15 ML BTL EACH EAR SCH (08:16)
[2017-06-01] MEDS: prednisoLONE ACETATE 1% OPHT SUSP 5 ML BTL RIGHT EYE SCH ×2 (08:16→20:30)
[2017-06-01 09:32] LABS: HEMATOCRIT 31.3 % (39.0-51.0); HEMOGLOBIN 9.9 GM/DL (13.0-17.0); MEAN CELL VOLUME 83.3 FL (80.0-100.0); MEAN CORPUSCULAR HEMOGLOBIN 26.4 PG (27.0-34.0); MEAN CORPUSCULAR HGB CONC 31.7 % (32.0-36.0); MEAN PLATELET VOLUME 8.4 FL (7.0-11.0); PLATELET COUNT 157 TH/MM3 (150-450); RED BLOOD COUNT 3.76 MIL/MM3 (4.50-5.90); RED CELL DISTRIBUTION WIDTH 19.3 % (11.6-17.2)
[2017-06-01 09:52] LABS: BICARBONATE 23.8 MEQ/L (21.0-32.0); CALCIUM 7.9 MG/DL (8.5-10.1); CREATININE 1.48 MG/DL (0.60-1.30)
--- NOTE | 2017-06-01 10:18 | HHI.FPPN ---
Subjective Remarks Pt had 102.0 overnight and tachycardic 101. Resident team not paged. Will do septic workup this AM. Pt lying in bed this morning. Reports that he is doing better and gaining full function in his arms. 3 BMs recorded yesterday. No complaints this AM. He denies CP, SOB, abdominal pain, and N/V. VSS. (Nina Ziegler MD R1) Objective Vitals Vital Signs Date Time Temp Pulse Resp B/P (MAP) Pulse Ox O2 Delivery O2 Flow Rate FiO2 06/01/17 08:35 155/71 (99) 06/01/17 08:08 99.0 96 19 184/77 (112) 94 06/01/17 05:10 99.8 06/01/17 04:00 102.0 101 18 130/70 (90) 98 06/01/17 04:00 Nasal Cannula 2.00 06/01/17 03:48 104 06/01/17 00:00 98.3 96 18 145/71 (95) 97 06/01/17 00:00 Nasal Cannula 2.00 05/31/17 23:28 96 05/31/17 21:22 Nasal Cannula 2.00 05/31/17 20:00 Nasal Cannula 2.00 05/31/17 20:00 98.8 91 19 153/63 (93) 100 05/31/17 19:45 88 05/31/17 16:07 97.3 94 20 145/54 (84) 95 05/31/17 12:08 100.5 100 20 146/61 (89) 94 I/O 05/31/17 05/31/17 05/31/17 06/01/17 06/01/17 06/01/17 07:00 15:00 23:00 07:00 15:00 23:00 Intake Total 1200 ml 300 ml 140 ml 1497 ml 3 ml Output Total 850 ml 1300 ml 850 ml Balance 350 ml 300 ml -1160 ml 647 ml 3 ml Intake Oral 100 ml 140 ml 100 ml IV Total 1100 ml 300 ml 1397 ml 3 ml Output Urine Total 850 ml 1300 ml 850 ml # Bowel Movements 0 2 1 (Nina Ziegler MD R1) Result Diagram: 06/01/17 0700 06/01/17 0700 Objective Remarks GENERAL: elderly man, pleasant, lying in bed, in NAD SKIN: scaling and dryness of right and left leg HEAD: Atraumatic. Normocephalic. EYES: legally blind, yellow crusting of both eyes ENT: dental caries, dry crusting of lips NECK: Trachea midline. No JVD or lymphadenopathy. CARDIOVASCULAR: Regular rate and rhythm without murmurs, gallops, or rubs. RESPIRATORY: decreased breath sounds in b/l bases GASTROINTESTINAL: protuberant abdomen, tenderness to palpation in lower quadrants MUSCULOSKELETAL: contractures of right and left hand, right great toe and fifth toe amputation, skin is erythematous, dry, several ulcers on lower extremities NEUROLOGICAL: Alert, Awake, oriented x3, able to follow commands and speak clearly. Symmetric smile. Sensation intact in face. Strength of right hand 4/5 , left hand 3-4/5. No sensation in lower extremities. (Nina Ziegler MD R1) A/P Assessment and Plan 67 year old male with CHF (EF 35%), HTN, CKD stage 3, CAD s/p 3 vessel CABG, Afib on xarelto, HTN, HLD, DM admitted for acute infarct of posterior left MCA. Currently on empiric antibiotics due to meeting sepsis criteria. Discharge Planning Unclear timetable at this time PT- return to SNF at [facility] ST- patient will require speech therapy after discharge OT- OT at rehab, SNF (Nina Ziegler MD R1) Attending Attestation THIS CASE WAS DISCUSSED WITH THE RESIDENT PHYSICIAN,DR Amador ZIEGLER. I HAVE REVIEWED THE RECORD,PATIENT SEEN AND EXAMINED AND AGREE WITH THE ABOVE NOTE AND PLAN OF CARE WAS DISCUSSED. I HAVE AUTHORIZED THE ORDERS. (Edison Jimenez MD) Problem List: (1) Ischemic stroke ICD Codes: I63.9 - Cerebral infarction, unspecified Plan: Patient presents with aphasia and left-sided weakness and mild right- sided weakness upon arrival to ED. Difficult to establish time of onset,patient most likely outside of window for TPA. Brain MRI demonstrated increased signal in the posterior left MCA distribution on the diffusion of weighted images characteristic of an acute or subacute infarct. Currently on mass shift or evidence hemorrhage. Neurology consulted, recs appreciated. Continue aspirin 325 mg PO daily Continue Xarelto 20mg PO daily Carotid US: moderate visble plaque in both carotid arteries, findings suggest at least a moderate stenosis. possible significant carotid disease, though not a good candidate for further imaging of the carotids at this point History: Troponin at 0.09 (baseline), 0.13, 0.18 EKG revealed sinus rhythm, nonspecific T wave abnormalities (2) Sepsis ICD Codes: A41.9 - Sepsis Status: Acute Plan: Patient meets sepsis criteria with leukocytosis (WBC of 12.7), tachycardia (92), and low grade fever (100.5). Patient has allergy to PCN. Continue Vancomycin 1500 mg IV, pharmacy consulted for renal dosage, appreciate recs Continue Cipro 400mg IV q18h Continue Flagly 500mg IV q8h Blood cultures NGTD UA bacteria present, urine culture no growth in 24 hours Patient had fever of 102.5 overnight, will obtain repeat blood cultures, UA + UC , and CXR (3) Congestive heart failure ICD Codes: I50.9 - Heart failure, unspecified Status: Chronic Plan: Echo form 03/14/17 demonstrated 35% ejection fraction CXR 06/01 revealed cardiomegaly and stable compared to CXR 05/22/17, which revealed slight blunting of the left costophrenic sulcus suggesting a small left pleural effusion CXR 06/01 demonstrated moderate pulmonary vascular congestion Restarted home Lasix 40mg PO BID BNP 53 2D echo with Doppler ordered (4) Chronic kidney disease, stage 3 ICD Codes: N18.3 - Chronic kidney disease, stage 3 (moderate) Plan: Baseline Cr. 1.3-1.5 BUN and Cr improving Continue to monitor Continue fluids NS 125mls/ hr Nephrology consulted, recs appreciated continue abx Follow up cultures avoid nephrotoxins (5) Rhabdomyolysis ICD Codes: M62.82 - Rhabdomyolysis Plan: Elevated creatine kinase 2533 most likely due to tremors Improving NS 125mls/hr Continue to monitor Nephrology consulted, appreciate recs Baseline Cr 1.3-1.5 continue abx Avoid nephrotoxins (6) Atrial fibrillation ICD Codes: I48.91 - Atrial fibrillation Status: Chronic Plan: -Xarelto 20mg PO daily (7) Hypertension ICD Codes: I10 - Hypertension Status: Chronic Plan: -Continue home meds: Coreg 6.25 mg PO q12 Losartan 50mg PO daily (8) Neurogenic bladder ICD Codes: N31.9 - Neuromuscular dysfunction of bladder, unspecified Plan: Neurogenic bladder due to stroke -Conde catheter placed (9) Hyperlipidemia ICD Codes: E78.5 - Hyperlipidemia Status: Chronic Plan: -Continue Atorvastatin 40mg PO HS (10) Hypothyroidism ICD Codes: E03.9 - Hypothyroidism, unspecified Status: Chronic Plan: -Continue Levothyroxine 112mcg PO daily (11) Diabetes ICD Codes: E11.9 - Diabetes Status: Chronic Plan: -Low dose SS -Held home insulin (12) Constipation ICD Codes: K59.00 - Constipation, unspecified Plan: -Fleet Enema 05/31 (13) Nutrition, metabolism, and development symptoms ICD Codes: R63.8 - Other symptoms and signs concerning food and fluid intake Status: Acute Plan: Fluids: none due to CHF Diet: soft mechanical diet Electrolytes: monitor and replace as needed neuro checks q4h, vitals q4, monitor I & Os Case Management Consulted (Nina Ziegler MD R1) Problem Qualifiers (1) Congestive heart failure: Qualified Codes: I50.9 - Heart failure, unspecified Nina Ziegler MD R1 Jun 01, 2017 10:18 Edison Jimenez MD Jun 03, 2017 21:15
--- NOTE | 2017-06-01 10:52 | RADRPT ---
EXAM DATE/TIME: 06/01/2017 10:18 [place] COMPARISON: CHEST SINGLE AP, May 29, 2017, 14:36. INDICATIONS : Fever. MEDICAL HISTORY : Renal failure, acute. Chronic obstructive pulmonary disease. Cardiovascular disease. Hypertension . SURGICAL HISTORY : None. ENCOUNTER: Initial ACUITY: 3 days PAIN SCORE: 0/10 LOCATION: Bilateral chest FINDINGS: The heart is enlarged. Moderate pulmonary vascular congestion is noted bilaterally. Median sternotomy wires are noted status post cardiac surgery. Degenerative changes are noted throughout the thoracic spine. CONCLUSION: 1. Moderate pulmonary vascular congestion. 2. Cardiomegaly. Afshin Soares MD on June 01, 2017 at 10:49 Board Certified Radiologist. This report was verified electronically.
--- NOTE | 2017-06-01 11:48 | HHI.PR ---
Review/Management Daily Summary 05/31 more alert and responsive this am better orientation, appeared alert after awakened mri seen, left mca acute infarct continue current care 06/01 briefly seen xray in progress fever but no neuro setback monitor and rehab Subjective Subjective Comments no neuro changes per RN Active Medications Current Medications Medications (Trade) Dose Ordered Sig/Gucci Route Start Time Stop Time Status Last Admin (NS Flush) 2 ml UNSCH PRN IV FLUSH 05/29/17 16:00 (NS Flush) 2 ml BID IV FLUSH 05/29/17 21:00 05/30/17 09:06 (Zofran Inj) 4 mg Q6H PRN IVP 05/29/17 16:00 (Narcan Inj) 0.4 mg UNSCH PRN IV PUSH 05/29/17 16:00 (Kimberly-Colace) 1 tab BID PO 05/29/17 21:00 06/01/17 08:14 (Milk Of Magnesia Liq) 30 ml Q12H PRN PO 05/29/17 16:00 (Senokot) 17.2 mg Q12H PRN PO 05/29/17 16:00 (Dulcolax Supp) 10 mg DAILY PRN RECTAL 05/29/17 16:00 (Lactulose Liq) 30 ml DAILY PRN PO 05/29/17 16:00 (Albuterol Neb) 2.5 mg Q2HR NEB PRN NEB 05/29/17 16:15 (Xanax) 0.25 mg Q6H PRN PO 05/29/17 16:15 (Lipitor) 40 mg HS PO 05/29/17 21:00 05/31/17 22:02 (Debrox 6.5% Otic) 5 drop DAILY EACH EAR 05/30/17 09:00 06/01/17 08:16 (Atarax) 25 mg Q6H PRN PO 05/29/17 16:15 (Duoneb Neb) 1 ampule Q6HR NEB NEB 05/29/17 18:00 06/01/17 10:41 (Nitrostat Sl) 0.4 mg ONCE PRN SL 05/29/17 16:15 06/01/17 16:14 (Pred Forte 1% Opth Susp) 1 drop BID RIGHT EYE 05/29/17 21:00 06/01/17 08:16 (SEROquel) 25 mg HS PO 05/29/17 21:00 05/31/17 22:02 (Synthroid) 112 mcg DAILY@0600 PO 05/30/17 06:00 06/01/17 05:03 (D50w (Vial) Inj) 50 ml UNSCH PRN IV PUSH 05/29/17 16:45 (Glucagon Inj) 1 mg UNSCH PRN OTHER 05/29/17 16:45 (NovoLOG SUPPLEMENTAL SCALE) 1 ACHS SLIDING SCALE SQ 05/29/17 17:00 06/01/17 08:15 (Synthroid) 25 mcg DAILY@0600 PO 05/30/17 06:00 06/01/17 05:03 Pharmacy Profile Note 0 ml @ 0 mls/hr UNSCH OTHER 05/29/17 18:30 Metronidazole 100 ml @ 100 mls/hr Q8H IV 05/29/17 20:00 06/01/17 05:02 Ciprofloxacin/ Dextrose 200 ml @ 200 mls/hr Q18H IV 05/29/17 22:00 06/01/17 03:24 (Xarelto) 20 mg DAILY PO 05/30/17 11:00 06/01/17 08:15 Sodium Chloride 1,000 ml @ 125 mls/hr Q8H IV 05/30/17 10:15 06/01/17 08:31 (Aspirin) 325 mg DAILY PO 06/01/17 09:00 06/01/17 08:15 (Vasotec Inj) 1.25 mg Q6H PRN IV PUSH 05/31/17 12:30 (Tylenol) 650 mg Q4H PRN PO 05/31/17 12:45 06/01/17 03:23 (Coreg) 6.25 mg Q12HR PO 06/01/17 11:15 (Cozaar) 50 mg DAILY PO 06/01/17 11:15 (Lasix) 40 mg BID@,18 PO 06/01/17 18:00 Allergies Allergies Coded Allergies Iodinated Contrast- Oral and IV Dye (Verified Allergy, Severe, Anaphylaxis, ) acetaminophen (Unverified Allergy, Severe, "LIVER PROBLEMS", 05/29/17) diatrizoate meglumine (Unverified Allergy, Severe, Anaphylaxis, 05/29/17) gadobenic acid (Unverified Allergy, Severe, Anaphylaxis, 05/29/17) gadodiamide (Unverified Allergy, Severe, Anaphylaxis, 05/29/17) gadoteridol (Unverified Allergy, Severe, Anaphylaxis, 05/29/17) iodixanol (Unverified Allergy, Severe, Anaphylaxis, 05/29/17) iohexol (Unverified Allergy, Severe, Anaphylaxis, 05/29/17) penicillin G (Unverified Allergy, Severe, "HOT THROAT", 05/29/17) Uncoded Allergies RADIOISOTOPES ( Allergy, Severe, 09/27/13) Exam I&O / VS 06/01/17 06/01/17 06/02/17 14:59 22:59 06:59 Intake Total 3 ml Balance 3 ml IV Total 3 ml Vital Signs Date Time Temp Pulse Resp B/P (MAP) Pulse Ox O2 Delivery O2 Flow Rate FiO2 06/01/17 10:50 95 Nasal Cannula 2.00 06/01/17 08:35 155/71 (99) 06/01/17 08:08 99.0 96 19 184/77 (112) 94 06/01/17 05:10 99.8 06/01/17 04:00 102.0 101 18 130/70 (90) 98 06/01/17 04:00 Nasal Cannula 2.00 06/01/17 03:48 104 06/01/17 00:00 98.3 96 18 145/71 (95) 97 06/01/17 00:00 Nasal Cannula 2.00 05/31/17 23:28 96 05/31/17 21:22 Nasal Cannula 2.00 05/31/17 20:00 Nasal Cannula 2.00 05/31/17 20:00 98.8 91 19 153/63 (93) 100 05/31/17 19:45 88 05/31/17 16:07 97.3 94 20 145/54 (84) 95 05/31/17 12:08 100.5 100 20 146/61 (89) 94 Objective Micro and Labs Laboratory Tests Test 06/01/17 07:00 White Blood Count 11.0 Red Blood Count 3.76 Hemoglobin 9.9 Hematocrit 31.3 Mean Corpuscular Volume 83.3 Mean Corpuscular Hemoglobin 26.4 Mean Corpuscular Hemoglobin Concent 31.7 Red Cell Distribution Width 19.3 Platelet Count 157 Mean Platelet Volume 8.4 Blood Urea Nitrogen 21 Creatinine 1.48 Random Glucose 183 Calcium Level 7.9 Sodium Level 145 Potassium Level 3.8 Chloride Level 112 Carbon Dioxide Level 23.8 Anion Gap 9 Estimat Glomerular Filtration Rate 47 Date/Time Source Procedure Growth Status 05/29/17 13:40 Blood Peripheral Aerobic Blood Culture - Preliminary NO GROWTH IN 3 DAYS Resulted 05/29/17 13:40 Blood Peripheral Anaerobic Blood Culture - Preliminary NO GROWTH IN 3 DAYS Resulted 05/30/17 01:00 Urine Catheterized Urine Urine Culture - Preliminary NO GROWTH IN 24 HOURS. Resulted Bhavana Parker MD Jun 01, 2017 11:48
--- NOTE | 2017-06-01 12:39 | HHI.NPPN ---
Subjective General Problems: Anemia, Edema, Hypertension Renal Failure: Chronic, Acute, Stage III History of Present Illness 67-year-old male with a past medical history of ischemic heart disease, congestive heart failure, chronic kidney disease, atrial fibrillation, chronic anemia, diabetes mellitus, hypothyroidism, and peripheral vascular disease who was admitted with a complaint of worsening shortness of breath. I was called to see the patient because of elevated BUN and creatinine. The patient has known history of chronic kidney disease and his baseline creatinine seems to be in the range of 1.3-1.5 most of the time. Additional Remarks Patient is awake, now oriented times 2, not in distress. Objective Data Data 06/01/17 06/02/17 19:00 07:00 Intake Total 3 ml Balance 3 ml IV Total 3 ml Vital Signs Date Time Temp Pulse Resp B/P (MAP) Pulse Ox O2 Delivery O2 Flow Rate FiO2 06/01/17 12:07 97.9 86 20 154/63 (93) 96 06/01/17 10:50 95 Nasal Cannula 2.00 06/01/17 08:35 155/71 (99) 06/01/17 08:08 99.0 96 19 184/77 (112) 94 06/01/17 05:10 99.8 06/01/17 04:00 102.0 101 18 130/70 (90) 98 06/01/17 04:00 Nasal Cannula 2.00 06/01/17 03:48 104 06/01/17 00:00 98.3 96 18 145/71 (95) 97 06/01/17 00:00 Nasal Cannula 2.00 05/31/17 23:28 96 05/31/17 21:22 Nasal Cannula 2.00 05/31/17 20:00 Nasal Cannula 2.00 05/31/17 20:00 98.8 91 19 153/63 (93) 100 05/31/17 19:45 88 05/31/17 16:07 97.3 94 20 145/54 (84) 95 -: 06/01/17 0700 06/01/17 0700 Physical Exam General Appearance: No Acute Distress, Comfortable Eyes Eye Exam: Pupils Equal Throat Throat Exam: Oral Mucosa [place] & Moist Neck Neck Exam: Neck Supple Pulmonary Resp Exam: Breath Sounds Equal, No Distress, Rhonchi, Decreased Bases Cardiology CV Exam: Regular, Normal Sinus Rhythm Gastrointestinal/Abdomen GI Exam: Soft, Non-Tender, Bowel Sounds Present Extremeties Extremities Exam: Trace Edema (Bilateral scalling and dryness of skin, in lower leg.) Neurologic Neuro Exam: Alert, Awake, Oriented Assessment/Plan Assessment Summary: KATERIN/Acute Renal Failure, Hypertension, CKD Stage III Problem List: (1) Acute kidney injury ICD Codes: N17.9 - Acute kidney failure, unspecified (2) Altered mental status ICD Codes: R41.82 - Altered mental status Status: Acute (3) Hx of deep venous thrombosis ICD Codes: Z86.718 - History of deep venous thrombosis Status: Chronic (4) CHF (congestive heart failure) ICD Codes: I50.9 - Congestive heart failure Status: Resolved (5) Diabetes ICD Codes: E11.9 - Diabetes Status: Chronic (6) Hypothyroidism ICD Codes: E03.9 - Hypothyroidism, unspecified Status: Chronic (7) Hypertension ICD Codes: I10 - Hypertension Status: Chronic (8) Chronic kidney disease, stage 3 ICD Codes: N18.3 - Chronic kidney disease, stage 3 (moderate) (9) Rhabdomyolysis ICD Codes: M62.82 - Rhabdomyolysis Plan Patient has been non oliguric. Has chronic kidney disease with baseline Creatinine 1.3-1.5. Most likely has chronic kidney disease due to Hypertensive or renovascular disease. Now develop KATERIN, possibly due to Rhabdo. or Obstructive uropathy. Creatinine is now improving and it is 1.4, close to his baseline. Avoid Nephrotoxins, follow the BMP. Na. is also normal, encourage oral intake. Sunita Martin MD Jun 01, 2017 12:39
--- NOTE | 2017-06-01 12:46 | ECHRPT ---
Indication: cva/tia CONCLUSIONS Mildly dilated left ventricle. Wall thickness is normal. The left ventricular systolic function is severely reduced with an estimated ejection fraction 25%. Wall motion assessment is very difficult due to th e technical limitations of the study. There is likely global hypokinesis. Trace mitral valve regurgitation. Mild mitral annular calcification. Mild to moderate aortic sclerosis. There is trace tricuspid valve regurgitation. Structurally normal tricuspid valve. The estimated pulmonary arterial pressure is 40 mmHg. BP: / HR: Rhythm: MEASUREMENTS (Male / Female) Normal Values Technical Quality:Poor, Technically difficult stud y 2D ECHO LV Diastolic Diameter PLAX 5.8 cm 4.2 - 5.9 / 3.9 - 5.3 cm LV Systolic Diameter PLAX 5.1 cm IVS Diastolic Thickness 1.0 cm 0.6 - 1.0 / 0.6 - 0.9 cm LVPW Diastolic Thickness 1.1 cm 0.6 - 1.0 / 0.6 - 0.9 cm LV Relative Wall Thickness 0.4 RV Internal Dim ED PLAX 1.8 cm M-MODE Aortic Root Diameter MM 3.8 cm LA Systolic Diameter MM 5.9 cm LA Ao Ratio MM 1.6 AV Cusp Separation MM 1.3 cm DOPPLER Mitral E Point Velocity 63.7 cm/s Mitral A Point Velocity 53.3 cm/s Mitral E to A Ratio 1.2 LV E' Lateral Velocity 6.6 cm/s Mitral E to LV E' Lateral Ratio 9.6 LV E' Septal Velocity 7.6 cm/s Mitral E to LV E' Septal Ratio 8.4 TR Peak Velocity 278.0 cm/s TR Peak Gradient 30.9 mmHg Right Atrial Pressure 10.0 mmHg Pulmonary Artery Systolic Pressu 40.9 mmHg Right Ventricular Systolic Press 40.9 mmHg FINDINGS LEFT VENTRICLE Mildly dilated left ventricle. Wall thickness is normal. The left ventricular systolic function is severely reduced with an estimated ejection fraction 25%. Wall motion assessment is very difficult due to th e technical limitations of the study. There is likely global hypokinesis. RIGHT VENTRICLE The right ventricle was not well visualized. LEFT ATRIUM The left atrial size is normal. RIGHT ATRIUM The right atrial size is normal. ATRIAL SEPTUM Normal atrial septal thickness without atrial level shunting by limited color doppler interrogation. AORTA The aortic root and proximal ascending aorta are normal in size on limited imaging. MITRAL VALVE Trace mitral valve regurgitation. Mild mitral annular calcification. AORTIC VALVE Mild to moderate aortic sclerosis. TRICUSPID VALVE There is trace tricuspid valve regurgitation. Structurally normal tricuspid valve. The estimated pulmonary arterial pressure is 40.9 mmHg. PULMONARY VALVE No pulmonary valve regurgitation or stenosis. VESSELS The inferior vena cava is normal in size. PERICARDIUM No pericardial effusion. Eduard Ramirez MD (Electronically Signed) Final Date:01 June 2017 12:40
[2017-06-01] MEDS: CARVEDILOL 6.25 MG TAB PO SCH ×2 (13:22→20:29)
[2017-06-01] MEDS: LOSARTAN 50 MG TAB PO SCH (13:22)
[2017-06-01 14:12] LABS: BACTERIA, URINE RARE /hpf; BILIRUBIN, URINE NEG (NEG); BLOOD, URINE SMALL (NEG); GLUCOSE,URINE NEG (NEG); KETONE, URINE TRACE mg/dL (NEG); MUCUS URINE FEW /lpf (OCC); NITRITE,URINE NEG (NEG); PH, URINE 5.5 (5.0-8.5); SQUAMOUS EPITHELIAL CELL URINE 1 /hpf (0-5); URINE COLOR YELLOW (YELLW/STRAW); URINE LEUKOCYTE ESTERASE LARGE (NEG)
[2017-06-01] MEDS: FUROSEMIDE 40 MG TAB PO SCH (18:35)
[2017-06-01] MEDS: QUEtiapine FUMARATE 25 MG TAB PO SCH (20:29)
[2017-06-01] MEDS: ATORVASTATIN 40 MG TAB PO SCH (20:29)
[2017-06-02] VITALS (13 sets, daily range): BP systolic 111–144; BP diastolic 56–65; PULSE 80–99; RESP 18–24; TEMP 97.8–99.3; O2SAT 93–100
[2017-06-02] MEDS: ACETAMINOPHEN 325 MG TAB PO PRN ×4 (03:02→23:45)
[2017-06-02] MEDS: metroNIDAZOLE 500 MG INJ 100 ML IV SCH ×3 (03:03→20:17)
[2017-06-02] MEDS: RESP: ALBUTEROL 2.5 MG/IPRATROPIUM 0.5 MG NEB (SCH) NEB ×3 (04:08→16:00)
[2017-06-02] MEDS: LEVOTHYROXINE SODIUM 25 MCG TAB PO SCH (05:39)
[2017-06-02] MEDS: LEVOTHYROXINE SODIUM 112 MCG TAB PO SCH (05:39)
[2017-06-02] MEDS: INSULIN ASPART SUPPLEMENTAL SCALE SQ SCH ×4 (08:00→20:35)
[2017-06-02 08:51] LABS: HEMATOCRIT 30.6 % (39.0-51.0); MEAN CELL VOLUME 83.1 FL (80.0-100.0); MEAN CORPUSCULAR HEMOGLOBIN 27.2 PG (27.0-34.0); MEAN CORPUSCULAR HGB CONC 32.7 % (32.0-36.0); MEAN PLATELET VOLUME 8.5 FL (7.0-11.0); PLATELET COUNT 175 TH/MM3 (150-450); RED BLOOD COUNT 3.69 MIL/MM3 (4.50-5.90); RED CELL DISTRIBUTION WIDTH 19.7 % (11.6-17.2); WHITE BLOOD COUNT 9.9 TH/MM3 (4.0-11.0)
[2017-06-02 09:07] LABS: BICARBONATE 26.4 MEQ/L (21.0-32.0); CALCIUM 7.5 MG/DL (8.5-10.1); CREATININE 1.49 MG/DL (0.60-1.30)
[2017-06-02] MEDS: LOSARTAN 50 MG TAB PO SCH (09:08)
[2017-06-02] MEDS: DOCUSATE SODIUM 50 MG/SENNA 8.6 MG TAB PO SCH ×2 (09:08→20:17)
[2017-06-02] MEDS: RIVAROXABAN 20 MG TAB PO SCH (09:08)
[2017-06-02] MEDS: CARVEDILOL 6.25 MG TAB PO SCH ×2 (09:08→20:17)
[2017-06-02] MEDS: ASPIRIN 325 MG TAB PO SCH (09:08)
[2017-06-02] MEDS: FUROSEMIDE 40 MG TAB PO SCH ×2 (09:08→17:49)
[2017-06-02 09:09] LABS: RANDOM VANCOMYCIN 8.1 COMMENT
[2017-06-02] MEDS: SODIUM CHLORIDE 0.9% FLUSH 10 ML FLUSH IV FLUSH SCH ×2 (09:09→20:16)
[2017-06-02] MEDS: CARBAMIDE PEROXIDE 6.5% OTIC SOLN 15 ML BTL EACH EAR SCH (09:09)
[2017-06-02] MEDS: prednisoLONE ACETATE 1% OPHT SUSP 5 ML BTL RIGHT EYE SCH ×2 (09:10→20:18)
--- NOTE | 2017-06-02 14:13 | HHI.FPPN ---
Subjective Remarks Patient seen and examined this morning. He reports he is feeling well. Febrile to 102.2 over night. No nausea, vomiting, fever, chills, abdominal pain, chest pain, cough. No other complaints today. Objective Vitals Vital Signs Date Time Temp Pulse Resp B/P (MAP) Pulse Ox O2 Delivery O2 Flow Rate FiO2 06/02/17 12:08 98.2 84 20 131/60 (83) 94 06/02/17 11:04 84 06/02/17 09:59 Nasal Cannula 2.00 06/02/17 09:29 95 Nasal Cannula 2.00 06/02/17 08:06 97.8 86 20 144/63 (90) 95 06/02/17 04:09 97 Nasal Cannula 2.00 06/02/17 04:00 Nasal Cannula 06/02/17 04:00 98.3 87 20 122/59 (80) 95 06/02/17 00:00 99.3 95 24 144/64 (90) 93 06/02/17 00:00 Nasal Cannula 2.00 06/01/17 23:43 86 06/01/17 22:55 Nasal Cannula 2.00 06/01/17 22:55 96 06/01/17 22:53 102.2 94 22 132/63 (86) 97 06/01/17 22:50 91 06/01/17 22:50 Room Air 06/01/17 21:31 96 Nasal Cannula 2.50 06/01/17 20:00 102.7 101 21 185/106 (132) 93 06/01/17 20:00 Nasal Cannula 2.00 06/01/17 20:00 Nasal Cannula 2.00 06/01/17 19:48 107 06/01/17 16:06 98.0 97 21 162/73 (102) 95 06/01/17 16:00 100 I/O 06/01/17 06/01/17 06/01/17 06/02/17 06/02/17 06/02/17 06:59 14:59 22:59 06:59 14:59 22:59 Intake Total 1497 ml 103 ml 1330 ml 480 ml Output Total 850 ml 400 ml 700 ml Balance 647 ml 103 ml 930 ml -220 ml Intake Oral 100 ml 30 ml 480 ml IV Total 1397 ml 103 ml 1300 ml Output Urine Total 850 ml 400 ml 700 ml # Bowel Movements 1 2 2 Result Diagram: 06/02/17 0735 06/02/17 0735 Objective Remarks GENERAL: elderly man, pleasant, lying in bed, in NAD SKIN: scaling and dryness of right and left leg HEAD: Atraumatic. Normocephalic. EYES: legally blind, yellow crusting of both eyes ENT: dental caries, dry crusting of lips NECK: Trachea midline. No JVD or lymphadenopathy. CARDIOVASCULAR: Regular rate and rhythm without murmurs, gallops, or rubs. RESPIRATORY: decreased breath sounds in b/l bases GASTROINTESTINAL: protuberant abdomen, tenderness to palpation in lower quadrants MUSCULOSKELETAL: contractures of right and left hand, right great toe and fifth toe amputation, skin is erythematous, dry, several ulcers on lower extremities, covered in clean dry intact dressings NEUROLOGICAL: Alert, Awake, oriented x3, able to follow commands and speak clearly. Symmetric smile. Sensation intact in face. Strength of right hand 4/5 , left hand 3-4/5. No sensation in lower extremities. A/P Assessment and Plan 67 year old male with CHF (EF 35%), HTN, CKD stage 3, CAD s/p 3 vessel CABG, Afib on xarelto, HTN, HLD, DM admitted for acute infarct of posterior left MCA. Currently on empiric antibiotics due to meeting sepsis criteria. Discharge Planning Unclear timetable at this time PT- return to SNF at [facility]- patient will require speech therapy after discharge OT- OT at rehab, SNF Problem List: (1) Ischemic stroke ICD Codes: I63.9 - Cerebral infarction, unspecified Plan: Patient presents with aphasia and left-sided weakness and mild right- sided weakness upon arrival to ED. Difficult to establish time of onset,patient most likely outside of window for TPA. Brain MRI demonstrated increased signal in the posterior left MCA distribution on the diffusion of weighted images characteristic of an acute or subacute infarct. Currently no mass shift or evidence hemorrhage. Neurology consulted, recs appreciated. Continue aspirin 325 mg PO daily Continue Xarelto 20mg PO daily Carotid US: moderate visble plaque in both carotid arteries, findings suggest at least a moderate stenosis. possible significant carotid disease, though not a good candidate for further imaging of the carotids at this point History: Troponin at 0.09 (baseline), 0.13, 0.18 EKG revealed sinus rhythm, nonspecific T wave abnormalities (2) Sepsis ICD Codes: A41.9 - Sepsis Status: Acute Plan: Patient met sepsis criteria with leukocytosis (WBC of 12.7), tachycardia (92), and low grade fever (100.5). Febrile overnight, tachycardic, leukocytosis resolved. Patient has allergy to PCN. Continue Vancomycin 1500 mg IV, pharmacy consulted for renal dosage, appreciate recs Continue Cipro 400mg IV q18h Continue Flagly 500mg IV q8h Blood cultures NGTD UA bacteria present, urine culture no growth in 24 hours F/U latest UCx, BCx (3) Congestive heart failure ICD Codes: I50.9 - Heart failure, unspecified Status: Chronic Plan: Echo form 03/14/17 demonstrated 35% ejection fraction CXR 06/01 revealed cardiomegaly and stable compared to CXR 05/22/17, which revealed slight blunting of the left costophrenic sulcus suggesting a small left pleural effusion CXR 06/01 demonstrated moderate pulmonary vascular congestion Home Lasix 40mg PO BID BNP 53 2D echo with Doppler ordered (4) Chronic kidney disease, stage 3 ICD Codes: N18.3 - Chronic kidney disease, stage 3 (moderate) Plan: Baseline Cr. 1.3-1.5 BUN and Cr improving Continue to monitor Continue fluids NS 125mls/ hr Nephrology consulted, recs appreciated continue abx Follow up cultures avoid nephrotoxins (5) Rhabdomyolysis ICD Codes: M62.82 - Rhabdomyolysis Plan: Elevated creatine kinase 2533 most likely due to tremors Improving NS 125mls/hr Continue to monitor Nephrology consulted, appreciate recs Baseline Cr 1.3-1.5 continue abx Avoid nephrotoxins (6) Atrial fibrillation ICD Codes: I48.91 - Atrial fibrillation Status: Chronic Plan: -Xarelto 20mg PO daily (7) Hypertension ICD Codes: I10 - Hypertension Status: Chronic Plan: -Continue home meds: Coreg 6.25 mg PO q12 Losartan 50mg PO daily (8) Neurogenic bladder ICD Codes: N31.9 - Neuromuscular dysfunction of bladder, unspecified Plan: Neurogenic bladder due to stroke -Conde catheter placed (9) Hyperlipidemia ICD Codes: E78.5 - Hyperlipidemia Status: Chronic Plan: -Continue Atorvastatin 40mg PO HS (10) Hypothyroidism ICD Codes: E03.9 - Hypothyroidism, unspecified Status: Chronic Plan: -Continue Levothyroxine 112mcg PO daily (11) Diabetes ICD Codes: E11.9 - Diabetes Status: Chronic Plan: -Low dose SS -Held home insulin (12) Constipation ICD Codes: K59.00 - Constipation, unspecified Plan: -Fleet Enema 05/31 (13) Nutrition, metabolism, and development symptoms ICD Codes: R63.8 - Other symptoms and signs concerning food and fluid intake Status: Acute Plan: Fluids: none due to CHF Diet: soft mechanical diet Electrolytes: monitor and replace as needed neuro checks q4h, vitals q4, monitor I & Os Case Management Consulted Problem Qualifiers (1) Congestive heart failure: Qualified Codes: I50.9 - Heart failure, unspecified Jermaine Bell MD R1 Jun 02, 2017 14:13
[2017-06-02] MEDS ORDERED: Vancomycin Consult Pharmacy 1 EA OTHER SCH (14:15)
[2017-06-02] MEDS ORDERED: VANCOMYCIN INJ 1,500 MG in SODIUM CHLORID 0.9% 500 ML INJ 500 ML IV SCH (14:15)
[2017-06-02] MEDS ORDERED: VANCOMYCIN 1,500 MG/NS 500 ML IV ONE ×2 (15:00)
--- NOTE | 2017-06-02 15:04 | HHI.PR ---
Review/Management Daily Summary 05/31 more alert and responsive this am better orientation, appeared alert after awakened mri seen, left mca acute infarct continue current care 06/01 briefly seen xray in progress fever but no neuro setback monitor and rehab 06/02 awakened easily no neuro cx but mildly confused moves limbs with limitation mostly because of severe chronic neuropathy/ulcers right hemiparesis appears stable/improving overall, raise limbs on commands continue medical care Subjective Subjective Comments No acute events reported No headache No chest pain No dyspnea Active Medications Current Medications Medications (Trade) Dose Ordered Sig/Gucci Route Start Time Stop Time Status Last Admin (NS Flush) 2 ml UNSCH PRN IV FLUSH 05/29/17 16:00 (NS Flush) 2 ml BID IV FLUSH 05/29/17 21:00 06/02/17 09:09 (Zofran Inj) 4 mg Q6H PRN IVP 05/29/17 16:00 (Narcan Inj) 0.4 mg UNSCH PRN IV PUSH 05/29/17 16:00 (Kimberly-Colace) 1 tab BID PO 05/29/17 21:00 06/02/17 09:08 (Milk Of Magnesia Liq) 30 ml Q12H PRN PO 05/29/17 16:00 (Senokot) 17.2 mg Q12H PRN PO 05/29/17 16:00 (Dulcolax Supp) 10 mg DAILY PRN RECTAL 05/29/17 16:00 (Lactulose Liq) 30 ml DAILY PRN PO 05/29/17 16:00 (Albuterol Neb) 2.5 mg Q2HR NEB PRN NEB 05/29/17 16:15 (Xanax) 0.25 mg Q6H PRN PO 05/29/17 16:15 (Lipitor) 40 mg HS PO 05/29/17 21:00 06/01/17 20:29 (Debrox 6.5% Otic) 5 drop DAILY EACH EAR 05/30/17 09:00 06/02/17 09:09 (Atarax) 25 mg Q6H PRN PO 05/29/17 16:15 (Duoneb Neb) 1 ampule Q6HR NEB NEB 05/29/17 18:00 06/02/17 09:26 (Pred Forte 1% Opth Susp) 1 drop BID RIGHT EYE 05/29/17 21:00 06/02/17 09:10 (SEROquel) 25 mg HS PO 05/29/17 21:00 06/01/17 20:29 (Synthroid) 112 mcg DAILY@0600 PO 05/30/17 06:00 06/02/17 05:39 (D50w (Vial) Inj) 50 ml UNSCH PRN IV PUSH 05/29/17 16:45 (Glucagon Inj) 1 mg UNSCH PRN OTHER 05/29/17 16:45 (NovoLOG SUPPLEMENTAL SCALE) 1 ACHS SLIDING SCALE SQ 05/29/17 17:00 06/02/17 12:00 (Synthroid) 25 mcg DAILY@0600 PO 05/30/17 06:00 06/02/17 05:39 Pharmacy Profile Note 0 ml @ 0 mls/hr UNSCH OTHER 05/29/17 18:30 Metronidazole 100 ml @ 100 mls/hr Q8H IV 05/29/17 20:00 06/02/17 12:13 Ciprofloxacin/ Dextrose 200 ml @ 200 mls/hr Q18H IV 05/29/17 22:00 06/01/17 20:29 (Xarelto) 20 mg DAILY PO 05/30/17 11:00 06/02/17 09:08 (Aspirin) 325 mg DAILY PO 06/01/17 09:00 06/02/17 09:08 (Vasotec Inj) 1.25 mg Q6H PRN IV PUSH 05/31/17 12:30 06/01/17 21:33 (Tylenol) 650 mg Q4H PRN PO 05/31/17 12:45 06/02/17 03:02 (Coreg) 6.25 mg Q12HR PO 06/01/17 11:15 06/02/17 09:08 (Cozaar) 50 mg DAILY PO 06/01/17 11:15 06/02/17 09:08 (Lasix) 40 mg BID@18 PO 06/01/17 18:00 06/02/17 09:08 Vancomycin HCl 1500 mg/Sodium Chloride 515 ml @ 257.5 mls/ hr ONCE ONCE IV 06/02/17 15:00 06/02/17 16:59 Miscellaneous Information SPECIFIC LAB TO BE NANCY... ONCE ONCE .XX 06/05/17 14:45 06/05/17 14:46 Allergies Allergies Coded Allergies Iodinated Contrast- Oral and IV Dye (Verified Allergy, Severe, Anaphylaxis, ) acetaminophen (Unverified Allergy, Severe, "LIVER PROBLEMS", 05/29/17) diatrizoate meglumine (Unverified Allergy, Severe, Anaphylaxis, 05/29/17) gadobenic acid (Unverified Allergy, Severe, Anaphylaxis, 05/29/17) gadodiamide (Unverified Allergy, Severe, Anaphylaxis, 05/29/17) gadoteridol (Unverified Allergy, Severe, Anaphylaxis, 05/29/17) iodixanol (Unverified Allergy, Severe, Anaphylaxis, 05/29/17) iohexol (Unverified Allergy, Severe, Anaphylaxis, 05/29/17) penicillin G (Unverified Allergy, Severe, "HOT THROAT", 05/29/17) Uncoded Allergies RADIOISOTOPES ( Allergy, Severe, 09/27/13) Exam I&O / VS Vital Signs Date Time Temp Pulse Resp B/P (MAP) Pulse Ox O2 Delivery O2 Flow Rate FiO2 06/02/17 12:08 98.2 84 20 131/60 (83) 94 06/02/17 11:04 84 06/02/17 09:59 Nasal Cannula 2.00 06/02/17 09:29 95 Nasal Cannula 2.00 06/02/17 08:06 97.8 86 20 144/63 (90) 95 06/02/17 04:09 97 Nasal Cannula 2.00 06/02/17 04:00 Nasal Cannula 06/02/17 04:00 98.3 87 20 122/59 (80) 95 06/02/17 00:00 99.3 95 24 144/64 (90) 93 06/02/17 00:00 Nasal Cannula 2.00 06/01/17 23:43 86 06/01/17 22:55 Nasal Cannula 2.00 06/01/17 22:55 96 06/01/17 22:53 102.2 94 22 132/63 (86) 97 06/01/17 22:50 91 06/01/17 22:50 Room Air 06/01/17 21:31 96 Nasal Cannula 2.50 06/01/17 20:00 102.7 101 21 185/106 (132) 93 06/01/17 20:00 Nasal Cannula 2.00 06/01/17 20:00 Nasal Cannula 2.00 06/01/17 19:48 107 06/01/17 16:06 98.0 97 21 162/73 (102) 95 06/01/17 16:00 100 Objective Micro and Labs Laboratory Tests Test 06/02/17 07:35 White Blood Count 9.9 Red Blood Count 3.69 Hemoglobin 10.0 Hematocrit 30.6 Mean Corpuscular Volume 83.1 Mean Corpuscular Hemoglobin 27.2 Mean Corpuscular Hemoglobin Concent 32.7 Red Cell Distribution Width 19.7 Platelet Count 175 Mean Platelet Volume 8.5 Blood Urea Nitrogen 22 Creatinine 1.49 Random Glucose 216 Calcium Level 7.5 Sodium Level 147 Potassium Level 3.6 Chloride Level 114 Carbon Dioxide Level 26.4 Anion Gap 7 Estimat Glomerular Filtration Rate 47 Random Vancomycin Level 8.1 Date/Time Source Procedure Growth Status 06/02/17 07:35 Blood Peripheral Aerobic Blood Culture Pending Received 06/02/17 07:35 Blood Peripheral Anaerobic Blood Culture Pending Received 06/01/17 13:51 Urine Clean Catch Urine Culture - Preliminary NO GROWTH IN 24 HOURS. Resulted Bhavana Parker MD Jun 02, 2017 15:04
--- NOTE | 2017-06-02 16:31 | HHI.NPPN ---
Subjective General Problems: Anemia, Edema, Hypertension Renal Failure: Chronic, Acute, Stage III History of Present Illness 67-year-old male with a past medical history of ischemic heart disease, congestive heart failure, chronic kidney disease, atrial fibrillation, chronic anemia, diabetes mellitus, hypothyroidism, and peripheral vascular disease who was admitted with a complaint of worsening shortness of breath. I was called to see the patient because of elevated BUN and creatinine. The patient has known history of chronic kidney disease and his baseline creatinine seems to be in the range of 1.3-1.5 most of the time. Additional Remarks Patient is awake, feeling better, not in distress. Objective Data Data 06/02/17 06/03/17 19:00 07:00 Intake Total 100 ml Balance 100 ml IV Total 100 ml Vital Signs Date Time Temp Pulse Resp B/P (MAP) Pulse Ox O2 Delivery O2 Flow Rate FiO2 06/02/17 12:08 98.2 84 20 131/60 (83) 94 06/02/17 11:04 84 06/02/17 09:59 Nasal Cannula 2.00 06/02/17 09:29 95 Nasal Cannula 2.00 06/02/17 08:06 97.8 86 20 144/63 (90) 95 06/02/17 04:09 97 Nasal Cannula 2.00 06/02/17 04:00 Nasal Cannula 06/02/17 04:00 98.3 87 20 122/59 (80) 95 06/02/17 00:00 99.3 95 24 144/64 (90) 93 06/02/17 00:00 Nasal Cannula 2.00 06/01/17 23:43 86 06/01/17 22:55 Nasal Cannula 2.00 06/01/17 22:55 96 06/01/17 22:53 102.2 94 22 132/63 (86) 97 06/01/17 22:50 91 06/01/17 22:50 Room Air 06/01/17 21:31 96 Nasal Cannula 2.50 06/01/17 20:00 102.7 101 21 185/106 (132) 93 06/01/17 20:00 Nasal Cannula 2.00 06/01/17 20:00 Nasal Cannula 2.00 06/01/17 19:48 107 -: 06/02/17 0735 06/02/17 0735 Microbiology 06/02/17 Aerobic Blood Culture, Received Pending 06/02/17 Anaerobic Blood Culture, Received Pending Physical Exam General Appearance: No Acute Distress, Comfortable Eyes Eye Exam: Pupils Equal Throat Throat Exam: Oral Mucosa [place] & Moist Neck Neck Exam: Neck Supple Pulmonary Resp Exam: Breath Sounds Equal, No Distress, Rhonchi, Decreased Bases Cardiology CV Exam: Regular, Normal Sinus Rhythm Gastrointestinal/Abdomen GI Exam: Soft, Non-Tender, Bowel Sounds Present Extremeties Extremities Exam: Trace Edema (Bilateral scalling and dryness of skin, in lower leg.) Neurologic Neuro Exam: Alert, Awake, Oriented Assessment/Plan Assessment Summary: KATERIN/Acute Renal Failure, Hypertension, CKD Stage III Problem List: (1) Acute kidney injury ICD Codes: N17.9 - Acute kidney failure, unspecified (2) Altered mental status ICD Codes: R41.82 - Altered mental status Status: Acute (3) Hx of deep venous thrombosis ICD Codes: Z86.718 - History of deep venous thrombosis Status: Chronic (4) CHF (congestive heart failure) ICD Codes: I50.9 - Congestive heart failure Status: Resolved (5) Diabetes ICD Codes: E11.9 - Diabetes Status: Chronic (6) Hypothyroidism ICD Codes: E03.9 - Hypothyroidism, unspecified Status: Chronic (7) Hypertension ICD Codes: I10 - Hypertension Status: Chronic (8) Chronic kidney disease, stage 3 ICD Codes: N18.3 - Chronic kidney disease, stage 3 (moderate) (9) Rhabdomyolysis ICD Codes: M62.82 - Rhabdomyolysis Plan Patient has been non oliguric. Has chronic kidney disease with baseline Creatinine 1.3-1.5. Most likely has chronic kidney disease due to Hypertensive or renovascular disease. Now develop KATERIN, possibly due to Rhabdo. or Obstructive uropathy. Creatinine is now improving and it is 1.4, close to his baseline. Avoid Nephrotoxins, follow the BMP. Na. is 147, to encourage oral fluids. Sunita Martin MD Jun 02, 2017 16:30
[2017-06-02] MEDS: CIPROFLOXACIN 400 MG PREMIX 200 ML IV SCH (17:55)
[2017-06-02] MEDS: QUEtiapine FUMARATE 25 MG TAB PO SCH (20:17)
[2017-06-02] MEDS: ATORVASTATIN 40 MG TAB PO SCH (20:17)
[2017-06-02] MEDS: ALPRAZolam 0.25 MG TAB PO PRN (22:19)
[2017-06-03] VITALS (11 sets, daily range): BP systolic 139–172; BP diastolic 61–79; PULSE 77–104; RESP 18–20; TEMP 98.8–99.7; O2SAT 94–95
[2017-06-03] MEDS: LEVOTHYROXINE SODIUM 112 MCG TAB PO SCH (05:13)
[2017-06-03] MEDS: ALPRAZolam 0.25 MG TAB PO PRN ×2 (05:13→20:38)
[2017-06-03] MEDS: metroNIDAZOLE 500 MG INJ 100 ML IV SCH ×3 (05:13→20:38)
[2017-06-03] MEDS: LEVOTHYROXINE SODIUM 25 MCG TAB PO SCH (05:13)
[2017-06-03] MEDS: INSULIN ASPART SUPPLEMENTAL SCALE SQ SCH ×4 (08:00→20:40)
[2017-06-03 08:27] LABS: HEMATOCRIT 31.1 % (39.0-51.0); HEMOGLOBIN 10.3 GM/DL (13.0-17.0); MEAN CORPUSCULAR HEMOGLOBIN 27.2 PG (27.0-34.0); MEAN CORPUSCULAR HGB CONC 33.1 % (32.0-36.0); PLATELET COUNT 185 TH/MM3 (150-450); RED BLOOD COUNT 3.79 MIL/MM3 (4.50-5.90); RED CELL DISTRIBUTION WIDTH 19.4 % (11.6-17.2)
[2017-06-03] MEDS: FUROSEMIDE 40 MG TAB PO SCH ×2 (08:33→16:30)
[2017-06-03] MEDS: RIVAROXABAN 20 MG TAB PO SCH (08:33)
[2017-06-03] MEDS: CARVEDILOL 6.25 MG TAB PO SCH ×2 (08:33→20:38)
[2017-06-03] MEDS: DOCUSATE SODIUM 50 MG/SENNA 8.6 MG TAB PO SCH ×2 (08:33→20:39)
[2017-06-03] MEDS: CIPROFLOXACIN 400 MG PREMIX 200 ML IV SCH (08:34)
[2017-06-03] MEDS: prednisoLONE ACETATE 1% OPHT SUSP 5 ML BTL RIGHT EYE SCH ×2 (08:34→20:52)
[2017-06-03] MEDS: LOSARTAN 50 MG TAB PO SCH (08:34)
[2017-06-03] MEDS: CARBAMIDE PEROXIDE 6.5% OTIC SOLN 15 ML BTL EACH EAR SCH (08:34)
[2017-06-03] MEDS: ASPIRIN 325 MG TAB PO SCH (08:34)
[2017-06-03] MEDS: SODIUM CHLORIDE 0.9% FLUSH 10 ML FLUSH IV FLUSH SCH ×2 (08:34→20:38)
[2017-06-03 08:50] LABS: BICARBONATE 27.5 MEQ/L (21.0-32.0); CALCIUM 7.5 MG/DL (8.5-10.1); CREATININE 1.47 MG/DL (0.60-1.30)
[2017-06-03] MEDS: ACETAMINOPHEN 325 MG TAB PO PRN ×2 (12:42→23:51)
--- NOTE | 2017-06-03 15:36 | HHI.FPPN ---
Subjective Remarks Patient seen and examined today. Patient states is doing well. No nausea, vomiting, fever, chills, abdominal pain, chest pain, change in bowel or bladder habits. Patient states he continues to do PT and is eager to return home. Objective Vitals Vital Signs Date Time Temp Pulse Resp B/P (MAP) Pulse Ox O2 Delivery O2 Flow Rate FiO2 06/03/17 12:20 104 06/03/17 12:09 99.0 92 20 168/74 (105) 95 06/03/17 10:49 95 Nasal Cannula 2.00 06/03/17 09:09 91 06/03/17 08:08 99.7 94 20 172/79 (110) 94 06/03/17 07:44 Nasal Cannula 2.00 06/03/17 04:00 98.9 77 18 139/61 (87) 94 06/03/17 04:00 90 06/03/17 00:00 90 06/02/17 23:28 99.0 87 18 127/58 (81) 94 06/02/17 22:11 96 Nasal Cannula 2.00 06/02/17 21:00 Nasal Cannula 2.00 06/02/17 20:12 98.3 80 20 111/56 (74) 96 06/02/17 20:00 82 06/02/17 18:36 82 06/02/17 16:07 98.2 82 20 129/62 (84) 100 I/O 06/02/17 06/02/17 06/02/17 06/03/17 06/03/17 06/03/17 07:00 15:00 23:00 07:00 15:00 23:00 Intake Total 480 ml 100 ml 940 ml 300 ml Output Total 700 ml 1000 ml 1000 ml Balance -220 ml 100 ml -60 ml -1000 ml 300 ml Intake Oral 480 ml 140 ml IV Total 100 ml 800 ml 300 ml Output Urine Total 700 ml 1000 ml 1000 ml # Bowel Movements 2 0 Result Diagram: 06/03/1745 06/03/17744 Objective Remarks GENERAL: elderly man, pleasant, lying in bed, in NAD SKIN: scaling and dryness of right and left leg HEAD: Atraumatic. Normocephalic. EYES: legally blind, yellow crusting of both eyes ENT: dental caries, dry crusting of lips NECK: Trachea midline. No JVD or lymphadenopathy. CARDIOVASCULAR: Regular rate and rhythm without murmurs, gallops, or rubs. RESPIRATORY: decreased breath sounds in b/l bases GASTROINTESTINAL: protuberant abdomen, tenderness to palpation in lower quadrants MUSCULOSKELETAL: contractures of right and left hand, right great toe and fifth toe amputation, skin is erythematous, dry, several ulcers on lower extremities, covered in clean dry intact dressings NEUROLOGICAL: Alert, Awake, oriented x3, able to follow commands and speak clearly. Symmetric smile. Sensation intact in face. Strength of right hand 4/5 , left hand 3-4/5. No sensation in lower extremities. A/P Assessment and Plan 67 year old male with CHF (EF 35%), HTN, CKD stage 3, CAD s/p 3 vessel CABG, Afib on xarelto, HTN, HLD, DM admitted for acute infarct of posterior left MCA. Currently on empiric antibiotics due to meeting sepsis criteria. Discharge Planning Unclear timetable at this time PT- return to SNF at [facility]- patient will require speech therapy after discharge OT- OT at rehab, SNF Problem List: (1) Ischemic stroke ICD Codes: I63.9 - Cerebral infarction, unspecified Plan: Patient presents with aphasia and left-sided weakness and mild right- sided weakness upon arrival to ED. Difficult to establish time of onset,patient most likely outside of window for TPA. Brain MRI demonstrated increased signal in the posterior left MCA distribution on the diffusion of weighted images characteristic of an acute or subacute infarct. Currently no mass shift or evidence hemorrhage. Neurology consulted, recs appreciated. Continue aspirin 325 mg PO daily Continue Xarelto 20mg PO daily Carotid US: moderate visble plaque in both carotid arteries, findings suggest at least a moderate stenosis. possible significant carotid disease, though not a good candidate for further imaging of the carotids at this point History: Troponin at 0.09 (baseline), 0.13, 0.18 EKG revealed sinus rhythm, nonspecific T wave abnormalities (2) Sepsis ICD Codes: A41.9 - Sepsis Status: Acute Plan: Patient met sepsis criteria with leukocytosis (WBC of 12.7), tachycardia (92), and low grade fever (100.5). Afebrile overnight, tachycardic, leukocytosis resolved. Patient has allergy to PCN. Continue Vancomycin 1500 mg IV, pharmacy consulted for renal dosage, appreciate recs Continue Cipro 400mg IV q18h Continue Flagly 500mg IV q8h Blood cultures NGTD UA rare bacteria present, urine culture no growth in 48 hours F/U latest UCx, BCx (3) Congestive heart failure ICD Codes: I50.9 - Heart failure, unspecified Status: Chronic Plan: Echo form 03/14/17 demonstrated 35% ejection fraction CXR 06/01 revealed cardiomegaly and stable compared to CXR 05/22/17, which revealed slight blunting of the left costophrenic sulcus suggesting a small left pleural effusion CXR 06/01 demonstrated moderate pulmonary vascular congestion Home Lasix 40mg PO BID BNP 53 2D echo with Doppler ordered (4) Chronic kidney disease, stage 3 ICD Codes: N18.3 - Chronic kidney disease, stage 3 (moderate) Plan: Baseline Cr. 1.3-1.5 BUN and Cr improving Continue to monitor Continue fluids NS 125mls/ hr Nephrology consulted, recs appreciated continue abx Follow up cultures avoid nephrotoxins (5) Rhabdomyolysis ICD Codes: M62.82 - Rhabdomyolysis Plan: Elevated creatine kinase 2533 most likely due to tremors, decreased to 1397 Improving NS 125mls/hr Continue to monitor Nephrology consulted, appreciate recs Baseline Cr 1.3-1.5 continue abx Avoid nephrotoxins (6) Atrial fibrillation ICD Codes: I48.91 - Atrial fibrillation Status: Chronic Plan: -Xarelto 20mg PO daily (7) Hypertension ICD Codes: I10 - Hypertension Status: Chronic Plan: -Continue home meds: Coreg 6.25 mg PO q12 Losartan 50mg PO daily (8) Neurogenic bladder ICD Codes: N31.9 - Neuromuscular dysfunction of bladder, unspecified Plan: Neurogenic bladder due to stroke -Conde catheter placed (9) Hyperlipidemia ICD Codes: E78.5 - Hyperlipidemia Status: Chronic Plan: -Continue Atorvastatin 40mg PO HS (10) Hypothyroidism ICD Codes: E03.9 - Hypothyroidism, unspecified Status: Chronic Plan: -Continue Levothyroxine 112mcg PO daily (11) Diabetes ICD Codes: E11.9 - Diabetes Status: Chronic Plan: -Low dose SS -Held home insulin (12) Constipation ICD Codes: K59.00 - Constipation, unspecified Plan: -Fleet Enema 05/31 (13) Nutrition, metabolism, and development symptoms ICD Codes: R63.8 - Other symptoms and signs concerning food and fluid intake Status: Acute Plan: Fluids: none due to CHF Diet: soft mechanical diet Electrolytes: monitor and replace as needed neuro checks q4h, vitals q4, monitor I & Os Case Management Consulted Problem Qualifiers (1) Congestive heart failure: Qualified Codes: I50.9 - Heart failure, unspecified Jermaine Bell MD R1 Jun 03, 2017 15:36
--- NOTE | 2017-06-03 16:57 | HHI.NPPN ---
Subjective General Problems: Anemia, Edema, Hypertension Renal Failure: Chronic, Acute, Stage III History of Present Illness 67-year-old male with a past medical history of ischemic heart disease, congestive heart failure, chronic kidney disease, atrial fibrillation, chronic anemia, diabetes mellitus, hypothyroidism, and peripheral vascular disease who was admitted with a complaint of worsening shortness of breath. I was called to see the patient because of elevated BUN and creatinine. The patient has known history of chronic kidney disease and his baseline creatinine seems to be in the range of 1.3-1.5 most of the time. Additional Remarks Patient is awake, no SOB, feeling better. Objective Data Data 06/03/17 06/04/17 19:00 07:00 Intake Total 300 ml Balance 300 ml IV Total 300 ml Vital Signs Date Time Temp Pulse Resp B/P (MAP) Pulse Ox O2 Delivery O2 Flow Rate FiO2 06/03/17 16:47 90 06/03/17 12:20 104 06/03/17 12:09 99.0 92 20 168/74 (105) 95 06/03/17 10:49 95 Nasal Cannula 2.00 06/03/17 09:09 91 06/03/17 08:08 99.7 94 20 172/79 (110) 94 06/03/17 07:44 Nasal Cannula 2.00 06/03/17 04:00 98.9 77 18 139/61 (87) 94 06/03/17 04:00 90 06/03/17 00:00 90 06/02/17 23:28 99.0 87 18 127/58 (81) 94 06/02/17 22:11 96 Nasal Cannula 2.00 06/02/17 21:00 Nasal Cannula 2.00 06/02/17 20:12 98.3 80 20 111/56 (74) 96 06/02/17 20:00 82 06/02/17 18:36 82 -: 06/03/17 0745 06/03/17 0745 Physical Exam General Appearance: No Acute Distress, Comfortable Eyes Eye Exam: Pupils Equal Throat Throat Exam: Oral Mucosa [place] & Moist Neck Neck Exam: Neck Supple Pulmonary Resp Exam: Breath Sounds Equal, No Distress, Rhonchi, Decreased Bases Cardiology CV Exam: Regular, Normal Sinus Rhythm Gastrointestinal/Abdomen GI Exam: Soft, Non-Tender, Bowel Sounds Present Extremeties Extremities Exam: Trace Edema (Bilateral scalling and dryness of skin, in lower leg.) Neurologic Neuro Exam: Alert, Awake, Oriented Assessment/Plan Assessment Summary: KATERIN/Acute Renal Failure, Hypertension, CKD Stage III Problem List: (1) Acute kidney injury ICD Codes: N17.9 - Acute kidney failure, unspecified (2) Altered mental status ICD Codes: R41.82 - Altered mental status Status: Acute (3) Hx of deep venous thrombosis ICD Codes: Z86.718 - History of deep venous thrombosis Status: Chronic (4) CHF (congestive heart failure) ICD Codes: I50.9 - Congestive heart failure Status: Resolved (5) Diabetes ICD Codes: E11.9 - Diabetes Status: Chronic (6) Hypothyroidism ICD Codes: E03.9 - Hypothyroidism, unspecified Status: Chronic (7) Hypertension ICD Codes: I10 - Hypertension Status: Chronic (8) Chronic kidney disease, stage 3 ICD Codes: N18.3 - Chronic kidney disease, stage 3 (moderate) (9) Rhabdomyolysis ICD Codes: M62.82 - Rhabdomyolysis Plan Patient has been non oliguric. Has chronic kidney disease with baseline Creatinine 1.3-1.5. Most likely has chronic kidney disease due to Hypertensive or renovascular disease. Now develop KATERIN, possibly due to Rhabdo. or Obstructive uropathy. Creatinine is now improving and it is 1.4, close to his baseline. Avoid Nephrotoxins, follow the BMP. Na. is now 150, to encourage oral fluids. Follow the urine out put and BMP. Sunita Martin MD Jun 03, 2017 16:57
[2017-06-03] MEDS: QUEtiapine FUMARATE 25 MG TAB PO SCH (20:39)
[2017-06-03] MEDS: ATORVASTATIN 40 MG TAB PO SCH (20:39)
[2017-06-04] VITALS (12 sets, daily range): BP systolic 135–168; BP diastolic 62–74; PULSE 88–118; RESP 12–23; TEMP 98.1–101; O2SAT 92–100
[2017-06-04] MEDS: CIPROFLOXACIN 400 MG PREMIX 200 ML IV SCH ×2 (04:14→21:45)
[2017-06-04] MEDS: metroNIDAZOLE 500 MG INJ 100 ML IV SCH ×3 (04:14→19:54)
[2017-06-04] MEDS: LEVOTHYROXINE SODIUM 112 MCG TAB PO SCH (04:15)
[2017-06-04] MEDS: LEVOTHYROXINE SODIUM 25 MCG TAB PO SCH (04:16)
[2017-06-04] MEDS: ALPRAZolam 0.25 MG TAB PO PRN (04:16)
[2017-06-04] MEDS ORDERED: EPINEPHrine HCL (1:10,000) 1 MG/10 ML SYRINGE IV ONE (05:00)
[2017-06-04] MEDS ORDERED: SODIUM BICARBONATE 8.4% INJ 50 MEQ/50 ML SYR IV ONE (05:00)
[2017-06-04 09:04] LABS: HEMATOCRIT 33.2 % (39.0-51.0); HEMOGLOBIN 10.8 GM/DL (13.0-17.0); MEAN CELL VOLUME 82.6 FL (80.0-100.0); MEAN CORPUSCULAR HEMOGLOBIN 26.9 PG (27.0-34.0); MEAN CORPUSCULAR HGB CONC 32.5 % (32.0-36.0); MEAN PLATELET VOLUME 8.5 FL (7.0-11.0); PLATELET COUNT 217 TH/MM3 (150-450); RED BLOOD COUNT 4.02 MIL/MM3 (4.50-5.90); RED CELL DISTRIBUTION WIDTH 19.5 % (11.6-17.2); WHITE BLOOD COUNT 10.4 TH/MM3 (4.0-11.0)
[2017-06-04 09:37] LABS: BICARBONATE 27.5 MEQ/L (21.0-32.0); CALCIUM 7.6 MG/DL (8.5-10.1); CREATININE 1.61 MG/DL (0.60-1.30)
[2017-06-04] MEDS: DOCUSATE SODIUM 50 MG/SENNA 8.6 MG TAB PO SCH ×2 (09:41→21:00)
[2017-06-04] MEDS: RIVAROXABAN 20 MG TAB PO SCH (09:41)
[2017-06-04] MEDS: ASPIRIN 325 MG TAB PO SCH (09:41)
[2017-06-04] MEDS: FUROSEMIDE 40 MG TAB PO SCH (09:41)
[2017-06-04] MEDS: CARVEDILOL 6.25 MG TAB PO SCH (09:41)
[2017-06-04] MEDS: CARBAMIDE PEROXIDE 6.5% OTIC SOLN 15 ML BTL EACH EAR SCH (09:41)
[2017-06-04] MEDS: prednisoLONE ACETATE 1% OPHT SUSP 5 ML BTL RIGHT EYE SCH ×2 (09:41→21:45)
[2017-06-04] MEDS: LOSARTAN 50 MG TAB PO SCH (09:41)
[2017-06-04] MEDS: INSULIN ASPART SUPPLEMENTAL SCALE SQ SCH ×4 (09:42→21:00)
[2017-06-04] MEDS: SODIUM CHLORIDE 0.9% FLUSH 10 ML FLUSH IV FLUSH SCH ×2 (09:43→21:45)
--- NOTE | 2017-06-04 10:30 | HHI.FPPN ---
Subjective Remarks Patient seen and examined this morning. Did have fever up to 101 overnight. He endorses fevers overnight as well. Otherwise, he denies other complaints/ concerns. He is working with physical therapy and feels that he is getting his strength back. Denies any chest pain, shortness of breath, abdominal pain, leg pain. The numbness/tingling. Objective Vitals Vital Signs Date Time Temp Pulse Resp B/P (MAP) Pulse Ox O2 Delivery O2 Flow Rate FiO2 06/04/17 08:00 98.1 99 22 168/74 (105) 92 06/04/17 04:00 95 06/04/17 03:49 99.2 88 16 135/63 (87) 93 06/04/17 00:00 99 06/04/17 00:00 101.0 88 18 135/63 (87) 96 06/03/17 22:22 Nasal Cannula 2.00 06/03/17 20:00 98.8 86 18 154/71 (98) 95 06/03/17 20:00 82 06/03/17 17:56 95 Nasal Cannula 2.00 06/03/17 16:47 90 06/03/17 16:09 98.9 94 19 162/72 (102) 95 06/03/17 12:20 104 06/03/17 12:09 99.0 92 20 168/74 (105) 95 06/03/17 10:49 95 Nasal Cannula 2.00 I/O 06/03/17 06/03/17 06/03/17 06/04/17 06/04/17 06/04/17 07:00 15:00 23:00 07:00 15:00 23:00 Intake Total 300 ml 240 ml 240 ml Output Total 1000 ml 900 ml 1450 ml Balance -1000 ml 300 ml -660 ml -1450 ml 240 ml Intake Oral 240 ml 240 ml IV Total 300 ml Output Urine Total 1000 ml 900 ml 1450 ml # Bowel Movements 2 Result Diagram: 06/04/1772906/04/17729 Objective Remarks GENERAL: elderly man, pleasant, lying in bed, in NAD SKIN: scaling and dryness of right and left leg EYES: legally blind, yellow crusting of both eyes ENT: dental caries, dry crusting of lips CARDIOVASCULAR: Regular rate and rhythm without murmurs, gallops, or rubs. RESPIRATORY: decreased breath sounds in b/l bases. Coarse breath sounds. GASTROINTESTINAL: protuberant abdomen, BS+ MUSCULOSKELETAL: contractures of right and left hand, right great toe and fifth toe amputation, skin is erythematous, dry, several ulcers on lower extremities, covered in clean dry intact dressings NEUROLOGICAL: Alert, Awake, oriented x3, able to follow commands and speak clearly. Symmetric smile. Sensation intact in face. Strength of right hand 4/5 , left hand 4/5. No sensation in lower extremities. A/P Assessment and Plan 67 year old male with CHF (EF 35%), HTN, CKD stage 3, CAD s/p 3 vessel CABG, Afib on xarelto, HTN, HLD, DM admitted for acute infarct of posterior left MCA. Currently on empiric antibiotics due to meeting sepsis criteria. Discharge Planning Unclear timetable at this time PT- return to SNF at [facility]- patient will require speech therapy after discharge OT- OT at rehab, SNF Problem List: (1) Ischemic stroke ICD Codes: I63.9 - Cerebral infarction, unspecified Plan: Patient presents with aphasia and left-sided weakness and mild right- sided weakness upon arrival to ED. Difficult to establish time of onset,patient most likely outside of window for TPA. Brain MRI demonstrated increased signal in the posterior left MCA distribution on the diffusion of weighted images characteristic of an acute or subacute infarct. Currently no mass shift or evidence hemorrhage. Carotid US: moderate visble plaque in both carotid arteries, findings suggest at least a moderate stenosis. possible significant carotid disease, though not a good candidate for further imaging of the carotids at this point Neurology consulted, recs appreciated. -Continue aspirin 325 mg PO daily -Continue Xarelto 20mg PO daily -Physical therapy (2) Sepsis ICD Codes: A41.9 - Sepsis Status: Acute Plan: Continues to spike fevers up to 101 overnight. No leukocytosis. UA/blood cx negative -CXR today to rule out infection Continue Vancomycin 1500 mg IV, pharmacy consulted for renal dosage, appreciate recs Continue Cipro 400mg IV q18h Continue Flagly 500mg IV q8h (3) Congestive heart failure ICD Codes: I50.9 - Heart failure, unspecified Status: Chronic Plan: Echo form 03/14/17 demonstrated 35% ejection fraction CXR 06/01 revealed cardiomegaly and stable compared to CXR 05/22/17, which revealed slight blunting of the left costophrenic sulcus suggesting a small left pleural effusion CXR 06/01 demonstrated moderate pulmonary vascular congestion Echo 06/01: mildly dilated LV, EF 25%, mild to moderate aortic sclerosis -Home Lasix 40mg PO BID (4) Chronic kidney disease, stage 3 ICD Codes: N18.3 - Chronic kidney disease, stage 3 (moderate) Plan: Baseline Cr. 1.3-1.5; Stable around 1.4-1.6 -Continue to monitor -Nephrology consulted, recs appreciated -Avoid nephrotoxins -Follow I/O (5) Rhabdomyolysis ICD Codes: M62.82 - Rhabdomyolysis Plan: Elevated creatine kinase 2533 most likely due to tremors, decreased to 1397 Improving NS 125mls/hr Continue to monitor Nephrology consulted, appreciate recs (6) Atrial fibrillation ICD Codes: I48.91 - Atrial fibrillation Status: Chronic Plan: -Xarelto 20mg PO daily (7) Hypertension ICD Codes: I10 - Hypertension Status: Chronic Plan: -Continue home meds: Coreg 6.25 mg PO q12 Losartan 50mg PO daily (8) Neurogenic bladder ICD Codes: N31.9 - Neuromuscular dysfunction of bladder, unspecified Plan: Neurogenic bladder due to stroke -Conde catheter placed (9) Hyperlipidemia ICD Codes: E78.5 - Hyperlipidemia Status: Chronic Plan: -Continue Atorvastatin 40mg PO HS (10) Hypothyroidism ICD Codes: E03.9 - Hypothyroidism, unspecified Status: Chronic Plan: -Continue Levothyroxine 112mcg PO daily (11) Diabetes ICD Codes: E11.9 - Diabetes Status: Chronic Plan: -Low dose SS -Held home insulin (12) Nutrition, metabolism, and development symptoms ICD Codes: R63.8 - Other symptoms and signs concerning food and fluid intake Status: Acute Plan: Fluids: none due to CHF Diet: soft mechanical diet Electrolytes: monitor and replace as needed neuro checks q4h, vitals q4, monitor I & Os Case Management Consulted Problem Qualifiers (1) Congestive heart failure: Qualified Codes: I50.9 - Heart failure, unspecified (2) Atrial fibrillation: Qualified Codes: I48.2 - Chronic atrial fibrillation Ángel Pulido MD, R2 Jun 04, 2017 10:30
[2017-06-04] MEDS ORDERED: POTASSIUM CHLORIDE 10 MEQ CAP PO ONE (11:15)
--- NOTE | 2017-06-04 11:36 | RADRPT ---
EXAM DATE/TIME: 06/04/2017 11:07 [facility] COMPARISON: CHEST SINGLE AP, June 01, 2017, 10:18. INDICATIONS : Cough and shortness of breath. MEDICAL HISTORY : Renal failure, acute. Chronic obstructive pulmonary disease. Cardiovascular disease. Hypertension. SURGICAL HISTORY : CABG. ENCOUNTER: Initial ACUITY: 1 week PAIN SCORE: 0/10 LOCATION: Bilateral chest FINDINGS: A single portable frontal view of the chest shows median sternotomy wires. Moderate cardiomegaly. [place] pulmonary vascular engorgement with cephalization of flow observed. No infiltrates or effusions. [place] structures are unremarkable. CONCLUSION: Cardiomegaly with pulmonary vascular engorgement. Connor Saab Jr., MD on June 04, 2017 at 11:32 Board Certified Radiologist. This report was verified electronically.
[2017-06-04] MEDS ORDERED: FUROSEMIDE 20 MG TAB PO ONE (12:00)
[2017-06-04] MEDS ORDERED: MIDAZOLAM HCL 5 MG/ML VIAL (1 ML) ONE ×2 (12:49→12:51)
[2017-06-04] MEDS ORDERED: ROCURONIUM INJ 50 MG/5 ML VIAL ONE (12:52)
[2017-06-04] MEDS ORDERED: NOREPINEPHRINE-DEXTROSE DRIP 250 ML IV ONE (12:56)
[2017-06-04] MEDS ORDERED: TERBUTALINE INJ 1 MG/ML AMP SQ PRN ×2 (13:00→14:45)
[2017-06-04] MEDS ORDERED: SODIUM BICARBONATE 8.4% INJ 50 MEQ/50 ML SYR ONE ×3 (13:01→13:13)
[2017-06-04] MEDS ORDERED: CALCIUM CHLORIDE 10% SOLN 1 GRAM/10 ML SYR ONE (13:11)
[2017-06-04] MEDS ORDERED: PHENYLEPHRINE HCL 10 MG/ML VIAL ONE (13:20)
[2017-06-04] MEDS ORDERED: MIDAZOLAM 100 MG/100 ML INJ 100 ML IV PRN (13:30)
--- NOTE | 2017-06-04 13:37 | PD.PROCEDR ---
Procedure Note Procedure CPR NOTE: I responded to code blue. Apparently after being found on the bed patient became unresponsive and pulseless. Immediate CPR was started. Patient received 2 amp epinephrine, 1amp of bicarb. Rhythm on monitor was irregular, PEA. CPR continued and after total 5 min there was return of spontaneous circulation. I intubated patient due to agonal breathing without any air movement. Post code I discussed with patient's guardian, who requested, no code but continued aggressive care. Levophed started due to shock Airam De Souza MD Jun 04, 2017 13:37
--- NOTE | 2017-06-04 13:44 | PD.PROCEDR ---
Procedure Note Procedure Procedure-emergency intubation during CODE BLUE INTUBATION: The patient was put in optimal position for the procedure. Rapid sequence intubation was initiated by me using no medication. DL with Mac 4 blade view, Grade 2 view, 2 attempts due to agonal breathing and coughing on attempted intubation. (No anesthesia meds were available on Floor). The patient was intubated with a 8.0 Cuffed endotracheal tube. Tube placement was confirmed by visualization of the tube and balloon passing through the cords, capnometry and subsequent chest x-ray. Breath sounds were equal and well aerated bilaterally postintubation. No breath sounds over stomach. Patient tolerated procedure well. Airam De Souza MD Jun 04, 2017 13:44
[2017-06-04 13:54] LABS: HEMATOCRIT 28.3 % (39.0-51.0); HEMOGLOBIN 9.5 GM/DL (13.0-17.0); MEAN CELL VOLUME 82.3 FL (80.0-100.0); MEAN CORPUSCULAR HEMOGLOBIN 27.5 PG (27.0-34.0); MEAN CORPUSCULAR HGB CONC 33.4 % (32.0-36.0); MEAN PLATELET VOLUME 8.1 FL (7.0-11.0); PLATELET COUNT 261 TH/MM3 (150-450); RED BLOOD COUNT 3.44 MIL/MM3 (4.50-5.90); RED CELL DISTRIBUTION WIDTH 19.5 % (11.6-17.2); WHITE BLOOD COUNT 9.6 TH/MM3 (4.0-11.0)
--- NOTE | 2017-06-04 13:59 | RADRPT ---
EXAM DATE/TIME: 06/04/2017 13:32 [facility] COMPARISON: CHEST SINGLE AP, June 04, 2017, 11:07. INDICATIONS : Post intubation and central line placement. MEDICAL HISTORY : Hypothyroidism. Myocardial infarction. Congestive heart failure. Dementia.Dizziness. Deep vein thromb osis. COPD. Dyspnea. Gastroesophageal reflux disease. Renal failure.Arthritis. Osteoporosis. Diabetes . Liver disease. Depression. MRSA. SURGICAL HISTORY : CABG. Bilateral cataract surgery. Amputation of right great toe and little toe. ENCOUNTER: Subsequent ACUITY: 1 day PAIN SCORE: Non-responsive. LOCATION: Bilateral chest FINDINGS: A single view of the chest demonstrates diffuse interstitial prominence characteristic of some degree of vascular congestion or volume overload. Heart size remains prominent. No associated large effusio n. Interval placement of an endotracheal tube with the tip at the clavicular heads. Nasogastric tube enters the stomach and extends off the inferior aspect of the image. Right subclavian central venous catheter with the tip of the central venous system. Multiple level degenerative spurring of the dorsa l spine. CONCLUSION: 1. Cardiomegaly with some interstitial prominence suggesting failure. This is slightly worse when com pared to the prior. 2. Endotracheal tube with the tip at the clavicular heads. Nasogastric tube enters the stomach and ex tends off the inferior aspect of the image. Right subclavian central venous catheter projects over th e central venous system. Cuong Betts MD on June 04, 2017 at 13:54 Board Certified Radiologist. This report was verified electronically.
[2017-06-04 14:19] LABS: TROPONIN I 0.13 NG/ML (0.02-0.05)
[2017-06-04 14:22] LABS: ALBUMIN 1.7 GM/DL (3.4-5.0); ALKALINE PHOSPHATASE 128 U/L (45-117); ALT (GPT) 65 U/L (12-78); AST (GOT) 91 U/L (15-37); BICARBONATE 26.4 MEQ/L (21.0-32.0); BLOOD UREA NITROGEN 27 MG/DL (7-18); CALCIUM 8.4 MG/DL (8.5-10.1); CHLORIDE 115 MEQ/L (98-107); CREATININE 1.62 MG/DL (0.60-1.30); GLOMERULAR FILTRATION RATE 42 ML/MIN (>89); GLUCOSE,RANDOM 238 MG/DL (74-106); MAGNESIUM 1.6 MG/DL (1.5-2.5); PHOSPHORUS 4.8 MG/DL (2.5-4.9); SODIUM (NA) 151 MEQ/L (136-145); TOTAL BILIRUBIN ADULT 0.3 MG/DL (0.2-1.0); TOTAL PROTEIN 5.4 GM/DL (6.4-8.2)
--- NOTE | 2017-06-04 14:33 | PD.PROCEDR ---
Procedure Note Procedure REASON FOR PROCEDURE Hemodynamic monitoring PROCEDURE PERFORMED Right femoral arterial line CONSENT Emergency procedure postcode blue DESCRIPTION OF THE PROCEDURE The patient was placed in supine, appropriate position. The area was exposed and cleansed with ChloraPrep, times two. Sterile drape was used to cover site exposed, under sterile conditions including cap, face mask, sterile gown, and sterile gloves. On single attempt, the introducer needle was inserted and arterial flash was obtained. The guide wire was then advanced without any restriction and the needle was removed. Using Seldinger technique the arterial catheter was advanced over the guide wire and guide wire was removed. Good arterial wave form obtained. Antibiotic disc was placed around central line at puncture site. The arterial line was secured to the skin with one interrupted 2.0 silk sutures. The area was bandaged with sterile see-through central line bandage. COMPLICATIONS: No apparent complications ESTIMATED BLOOD LOSS: Less than 1 cc. Airam De Souza MD Jun 04, 2017 14:33
--- NOTE | 2017-06-04 14:34 | PD.PROCEDR ---
Central Line Procedure REASON FOR PROCEDURE Central venous access PROCEDURE PERFORMED Central line placement: Right subclavian central line CONSENT Informed consent for procedure was obtained and time out performed ANESTHESIA Local injection of 1% Lidocaine DESCRIPTION OF THE PROCEDURE The patient was placed in supine, mild Trendelenburg position. The area was exposed and cleansed with ChloraPrep, times two. Large sterile drape was used to cover the patient, with the site exposed, under sterile conditions including cap, face mask, sterile gown, and sterile gloves. On single attempt, the introducer needle was inserted with negative pressure in syringe and venous flash was obtained. The guide wire was then advanced without any restriction and the needle was removed. The dilator was used without any complications. Using Seldinger technique the 20 CM 7F triple lumen catheter was advanced over the guide wire to a depth of 18 centimeters. The guide wire was removed. All ports were aspirated with dark venous blood return and flushed easily with sterile saline. All ports were capped. Antibiotic disc was placed around central line at puncture site. The central line was secured to the skin with two interrupted 2.0 silk sutures. The area was bandaged with sterile see- through central line bandage. COMPLICATIONS: No apparent complications ESTIMATED BLOOD LOSS: Less than 1 cc. Airam De Souza MD Jun 04, 2017 14:34
[2017-06-04] MEDS ORDERED: NOREPINEPHRINE 4 MG/D5W 250 ML IV PRN (14:45)
[2017-06-04] MEDS ORDERED: PHENYLEPHRINE 40 MG in D5W 500 ML IV PRN (14:45)
[2017-06-04] MEDS ORDERED: ROCURONIUM INJ 50 MG/5 ML VIAL IV ONE (15:00)
[2017-06-04] MEDS ORDERED: SODIUM BICARBONATE 8.4% SOLN 50 MEQ/50 ML VIAL IV ONE (15:00)
[2017-06-04] MEDS ORDERED: MIDAZOLAM HCL 5 MG/5 ML VIAL IV ONE (15:00)
[2017-06-04] MEDS ORDERED: SODIUM CHLOR 0.9% 1000 ML INJ 1,000 ML IV ONE (15:00)
[2017-06-04] MEDS ORDERED: CALCIUM CHLORIDE 10% SOLN 1 GRAM/10 ML SYR IV ONE (15:15)
--- NOTE | 2017-06-04 15:23 | PD.CONS ---
[facility] Service Critical Care Medicine Consult Requested By Dr. Jones Reason for Consult PEA arrest Cardiogenic shock Acute respiratory failure Acute encephalopathy Acute on chronic kidney disease Acute rhabdomyolysis Primary Care Physician Alexis Aggarwal MD History of Present Illness Patient is a 67-year-old white male was admitted to the [facility] on 05/30/17 with acute left MCA stroke with right hemiparesis. He has a past medical history significant for CHF with ejection fraction 25% (echo 06/01), Atrial fibrillation on Xarelto, chronic kidney disease stage III, rhabdomyolysis , Hypertension, Anemia, Hyperlipidemia, Diabetes Mellitus and Hypothyroidism. Apparently patient was in his regular state of health, improving right hemiparesis today am. A code blue was called overhead after the patient was found on the bed unresponsive and pulseless, which I responded immediately. CPR was started. See Code sheet for details-rhythm was pea with A. fib. Patient received 2 amp epinephrine, 1amp of bicarb. CPR continued and after total 5 min there was return of spontaneous circulation. I intubated patient during code, after return of spontaneous circulation. Patient was quickly moved to the ICU where resuscitation was continued with IV fluids boluses. I placed a right femoral arterial line for invasive cardiac/hemodynamic monitoring. As the blood pressure was trending down to low 90s systolic patient was started on Levophed infusion. I also placed a right subclavian central line. Patient remained in atrial fibrillation but blood pressure improved with map consistently above 65 with fluid resuscitation and Levophed infusion. I discussed with patient's guardian, who wants patient to be DNR, but wants to continue aggressive treatment. CT of the head is pending at this time. PE is unlikely as the patient had been on Xarelto for anticoagulation Review of Systems ROS Limitations: Intubated, Unresponsive Past Family Social History Allergies: Coded Allergies: Iodinated Contrast- Oral and IV Dye (Verified Allergy, Severe, Anaphylaxis , 05/29/17) acetaminophen (Unverified Allergy, Severe, "LIVER PROBLEMS", 05/29/17) diatrizoate meglumine (Unverified Allergy, Severe, Anaphylaxis, 05/29/17) gadobenic acid (Unverified Allergy, Severe, Anaphylaxis, 05/29/17) gadodiamide (Unverified Allergy, Severe, Anaphylaxis, 05/29/17) gadoteridol (Unverified Allergy, Severe, Anaphylaxis, 05/29/17) iodixanol (Unverified Allergy, Severe, Anaphylaxis, 05/29/17) iohexol (Unverified Allergy, Severe, Anaphylaxis, 05/29/17) penicillin G (Unverified Allergy, Severe, "HOT THROAT", 05/29/17) Uncoded Allergies: RADIOISOTOPES (Allergy, Severe, 09/27/13) UNKONWN RXN, LISTED ON PATIENT PAPERWORK FROM [facility]. Past Medical History Left MCA stroke CAD with history of PR CHF with low ejection fraction 25% (Echo 06/01/17) Hypertension Anemia CKD stage 3 Afib on xarelto Osteoarthritis Hyperlipidemia Diabetes mellitus Hypothyroidism. Past Surgical History Past Surgical History Triple bypass in 2007 Bilateral cataracts surgery Right great toe amputation Right fifth toe amputation Reported Medications Furosemide 20 Mg Tab 40 Mg PO BID@ Cozaar (Losartan Potassium) 25 Mg Tab 50 Mg PO DAILY Coreg (Carvedilol) 6.25 Mg Tab 6.25 Mg PO BID Aspirin EC (Aspirin) 81 Mg Tabdr 81 Mg PO DAILY Potassium Chloride Microencaps 20 Meq Tab 20 Meq PO DAILY Xanax (Alprazolam) 0.25 Mg Tab 0.25 Mg PO Q6H PRN Oxycodone (Oxycodone HCl) 10 Mg Tab 10 Mg PO Q4H PRN Morphine ER (Morphine Sulfate) 15 Mg Tab 15 Mg PO BID Active Ordered Medications Reviewed Family History Unable to obtain as the patient is comatose Social History Quit smoking 40 yrs ago per records. No alcohol use Physical Exam Vital Signs Vital Signs Date Time Temp Pulse Resp B/P (MAP) Pulse Ox O2 Delivery O2 Flow Rate FiO2 06/04/17 14:50 120 159/72 06/04/17 14:00 120 155/64 06/04/17 13:15 145 88/40 06/04/17 13:00 100 50 06/04/17 08:00 109 06/04/17 08:00 98.1 99 22 168/74 (105) 92 06/04/17 08:00 Nasal Cannula 2.00 06/04/17 04:00 95 06/04/17 03:49 99.2 88 16 135/63 (87) 93 06/04/17 00:00 99 06/04/17 00:00 101.0 88 18 135/63 (87) 96 06/03/17 22:22 Nasal Cannula 2.00 06/03/17 20:00 98.8 86 18 154/71 (98) 95 06/03/17 20:00 82 06/03/17 17:56 95 Nasal Cannula 2.00 06/03/17 16:47 90 06/03/17 16:09 98.9 94 19 162/72 (102) 95 Physical Exam GENERAL: Elderly male unresponsive, apneic EYES: legally blind per previous notes ENT: Poor dentition. Dry oral mucosa CARDIOVASCULAR: PEA Arrest ongoing CPR with no audible heart sounds RESPIRATORY: Agonal breathing prior to intubation. Postintubation equal breath sounds, diminished in the bases GASTROINTESTINAL: Protuberant abdomen, tympanic MUSCULOSKELETAL: S/p right great toe and fifth toe amputation, Small ulcers on bilateral anterior fleming, Non stageable pressure ulcer on bilateral sole NEUROLOGICAL: Status post cardiac arrest unresponsive no spontaneous moments no withdrawal to pain. Agonal breathing Laboratory Laboratory Tests Test 06/04/17 07:30 06/04/17 13:15 06/04/17 13:35 White Blood Count 10.4 9.6 Red Blood Count 4.02 3.44 Hemoglobin 10.8 9.5 Hematocrit 33.2 28.3 Mean Corpuscular Volume 82.6 82.3 Mean Corpuscular Hemoglobin 26.9 27.5 Mean Corpuscular Hemoglobin Concent 32.5 33.4 Red Cell Distribution Width 19.5 19.5 Platelet Count 217 261 Mean Platelet Volume 8.5 8.1 Blood Urea Nitrogen 26 27 Creatinine 1.61 1.62 Random Glucose 176 238 Calcium Level 7.6 8.4 Sodium Level 148 151 Potassium Level 3.4 3.5 Chloride Level 111 115 Carbon Dioxide Level 27.5 26.4 Anion Gap 10 10 Estimat Glomerular Filtration Rate 43 42 Random Vancomycin Level 9.6 Blood Gas Puncture Site ART LINE Blood Gas Patient Temperature 98.6 Blood Gas HCO3 23 Blood Gas Base Excess -1.6 Blood Gas Oxygen Saturation 98 Arterial Blood pH 7.37 Arterial Blood Partial Pressure CO2 41 Arterial Blood Partial Pressure O2 376 Arterial Blood Oxygen Content 15.1 Arterial Blood Carboxyhemoglobin 1.1 Arterial Blood Methemoglobin 0.6 Blood Gas Hemoglobin 10.2 Oxygen Delivery Device VENTILATOR Blood Gas Ventilator Setting Blood Gas Inspired Oxygen 100 Total Protein 5.4 Albumin 1.7 Phosphorus Level 4.8 Magnesium Level 1.6 Alkaline Phosphatase 128 Aspartate Amino Transf (AST/SGOT) 91 Alanine Aminotransferase (ALT/SGPT) 65 Total Bilirubin 0.3 Lactic Acid Level 2.4 Total Creatine Kinase 802 Creatine Kinase MB 1.7 Creatine Kinase MB % 0.2 Troponin I 0.13 Date/Time Source Procedure Growth Status 06/04/17 13:35 Blood Peripheral Aerobic Blood Culture Pending Received 06/04/17 13:35 Blood Peripheral Anaerobic Blood Culture Pending Received 06/01/17 13:51 Urine Clean Catch Urine Culture - Final NO GROWTH IN 48 HOURS. Complete Result Diagram: 06/04/17 1335 06/04/17 1335 Imaging Imaging studies reviewed Septic Shock Reassessment Septic shock perfusion: reassessment completed Assessment and Plan Assessment and Plan NEURO: Metabolic encephalopathy Possible anoxic injury Status post left MCA stroke 6 days ago - Encephalopathy postcode possible anoxic injury - CT of the head stat to evaluate for extent of stroke or bleed - Versed for sedation and vent synchrony RESP: Acute respiratory failure - Intubated during CODE BLUE - ACV, DuoNeb, Vent bundle - No vent weaning until neuro statue improved CV: PEA arrest Cardiogenic shock Atrial fibrillation on chronic Xarelto Cardiomyopathy with EF 25% - PEA arrest most likely cardiogenic - Received 2 Amps of epinephrine, 1 amp of bicarbonate and 5 minutes of CPR before return of spontaneous circulation - 2D Echo 06/01 with EF 25%. - Levophed to keep map above 65 - Serial cardiac enzymes - Normal saline IV fluids 2L bolus - Hold antihypertensives, hold IV Lasix due to hypotension - Continue aspirin continue Xarelto after CT of the head GI: - NPO, IV Protonix - NG to intermittent wall suction : Chronic kidney disease - Monitor renal function closely. Conde catheter. Trend CPK - Fluid resuscitation as above ID: Probable sepsis Recurrent fever - Patient is on IV vancomycin and Cipro and Flagyl per family medicine - Due to recurrent fever consult ID IS to date had been negative. No diarrhea HEME: - Monitor CBC, CMP, coags ENDO: - Electrolyte replacement per protocol as needed - Sliding-scale insulin PROPH: - Bilateral lower extremity SCDs. Continue Xarelto if CT head negative MSK: - Wound care consulted for bilateral sole pressure ulcer, eschar L lateral feet LINES: - Right subclavian central line and R radial art line placed in ICU 06/04/17 CC time 105 min discontinuously, including multiple patient visits and discussion with other specialists Re exam about 3 hours after the code- patient is alert awake following commands in all 4 extremities. Attempts to talk with ET tube in place, this indicates, no discernible anoxic brain injury. Prognosis still remains guarded at this time Code Status Full Discussed Condition With D/W Dr. Bello and patient's guardian Airam De Souza MD Jun 04, 2017 15:23
[2017-06-04] MEDS: VANCOMYCIN INJ 1,500 MG in SODIUM CHLORID 0.9% 500 ML INJ 500 ML IV SCH (15:50)
--- NOTE | 2017-06-04 17:37 | HHI.NPPN ---
Subjective General Problems: Anemia, Edema, Hypertension Renal Failure: Chronic, Acute, Stage III History of Present Illness 67-year-old male with a past medical history of ischemic heart disease, congestive heart failure, chronic kidney disease, atrial fibrillation, chronic anemia, diabetes mellitus, hypothyroidism, and peripheral vascular disease who was admitted with a complaint of worsening shortness of breath. I was called to see the patient because of elevated BUN and creatinine. The patient has known history of chronic kidney disease and his baseline creatinine seems to be in the range of 1.3-1.5 most of the time. Additional Remarks Patient became unresponsive and transferred to ICU after intubation. Objective Data Data 06/04/17 06/05/17 19:00 07:00 Intake Total 2340 ml Balance 2340 ml Intake Oral 240 ml IV Total 2100 ml Vital Signs Date Time Temp Pulse Resp B/P (MAP) Pulse Ox O2 Delivery O2 Flow Rate FiO2 06/04/17 16:15 100 40 06/04/17 16:15 40 06/04/17 16:11 115 141/67 06/04/17 15:49 132 164/65 06/04/17 14:50 120 159/72 06/04/17 14:00 120 155/64 06/04/17 13:15 145 88/40 06/04/17 13:00 100 50 06/04/17 08:00 109 06/04/17 08:00 98.1 99 22 168/74 (105) 92 06/04/17 08:00 Nasal Cannula 2.00 06/04/17 04:00 95 06/04/17 03:49 99.2 88 16 135/63 (87) 93 06/04/17 00:00 99 06/04/17 00:00 101.0 88 18 135/63 (87) 96 06/03/17 22:22 Nasal Cannula 2.00 06/03/17 20:00 98.8 86 18 154/71 (98) 95 06/03/17 20:00 82 06/03/17 17:56 95 Nasal Cannula 2.00 -: 06/04/17 1335 06/04/17 1335 Microbiology 06/04/17 Aerobic Blood Culture, Received Pending 06/04/17 Anaerobic Blood Culture, Received Pending 06/04/17 Gram Stain, Received Pending 06/04/17 Sputum Culture, Received Pending Physical Exam General Appearance Remarks intubated and sedated. Eyes Eye Exam: Pupils Equal Throat Throat Exam: Oral Mucosa [place] & Moist Neck Neck Exam: Neck Supple Pulmonary Resp Exam: Breath Sounds Equal, No Distress, Rhonchi, Decreased Bases Cardiology CV Exam: Regular, Normal Sinus Rhythm Gastrointestinal/Abdomen GI Exam: Soft, Non-Tender, Bowel Sounds Present Extremeties Extremities Exam: Trace Edema (Bilateral scalling and dryness of skin, in lower leg.) Neurologic Neuro Exam: Unresponsive, Sedated Assessment/Plan Assessment Summary: KATERIN/Acute Renal Failure, Hypertension, CKD Stage III Problem List: (1) Acute kidney injury ICD Codes: N17.9 - Acute kidney failure, unspecified (2) Altered mental status ICD Codes: R41.82 - Altered mental status Status: Acute (3) Hx of deep venous thrombosis ICD Codes: Z86.718 - History of deep venous thrombosis Status: Chronic (4) CHF (congestive heart failure) ICD Codes: I50.9 - Congestive heart failure Status: Resolved (5) Diabetes ICD Codes: E11.9 - Diabetes Status: Chronic (6) Hypothyroidism ICD Codes: E03.9 - Hypothyroidism, unspecified Status: Chronic (7) Hypertension ICD Codes: I10 - Hypertension Status: Chronic (8) Chronic kidney disease, stage 3 ICD Codes: N18.3 - Chronic kidney disease, stage 3 (moderate) (9) Rhabdomyolysis ICD Codes: M62.82 - Rhabdomyolysis Plan Patient has been non oliguric. Has chronic kidney disease with baseline Creatinine 1.3-1.5. Most likely has chronic kidney disease due to Hypertensive or renovascular disease. Now develop KATERIN, possibly due to Rhabdo. or Obstructive uropathy. Develop cardiac arrest and intubated. BP was low, given IVF Bolus and was on pressors, now off. Urine out put is adequate. Follow the urine out put and BMP. Sunita Martin MD Jun 04, 2017 17:37
[2017-06-04] MEDS ORDERED: FUROSEMIDE 40 MG TAB PO SCH (18:00)
[2017-06-04] MEDS: PANTOPRAZOLE SODIUM 40 MG VIAL IV PUSH SCH (18:01)
--- NOTE | 2017-06-04 19:09 | ECHRPT ---
Indication: EF CHF CONCLUSIONS Mildly dilated left ventricle. Wall thickness is normal. The left ventricular systolic function is severely reduced with an estimated ejection fraction in th e range of 20%. Mitral annular calcification is present. Aortic valve sclerosis is present. There is trace tricuspid valve regurgitation. BP: / HR: 150 Rhythm: Atrial fibrillation MEASUREMENTS (Male / Female) Normal Values Technical Quality:Fair 2D ECHO LV Diastolic Diameter PLAX 5.5 cm 4.2 - 5.9 / 3.9 - 5.3 cm LV Systolic Diameter PLAX 5.1 cm IVS Diastolic Thickness 1.3 cm 0.6 - 1.0 / 0.6 - 0.9 cm LVPW Diastolic Thickness 0.6 cm 0.6 - 1.0 / 0.6 - 0.9 cm LV Relative Wall Thickness 0.3 RV Internal Dim ED PLAX 2.7 cm M-MODE Aortic Root Diameter MM 3.4 cm AV Cusp Separation MM 1.4 cm DOPPLER TR Peak Velocity 189.0 cm/s TR Peak Gradient 14.3 mmHg FINDINGS LEFT VENTRICLE Mildly dilated left ventricle. Wall thickness is normal. The left ventricular systolic function is severely reduced with an estimated ejection fraction in th e range of 20%. RIGHT VENTRICLE Normal right ventricular size and systolic function. LEFT ATRIUM The left atrial size is normal. RIGHT ATRIUM The right atrial size is normal. ATRIAL SEPTUM Normal atrial septal thickness without atrial level shunting by limited color doppler interrogation. AORTA The aortic root and proximal ascending aorta are normal in size on limited imaging. MITRAL VALVE Mitral annular calcification is present. AORTIC VALVE Aortic valve sclerosis is present. TRICUSPID VALVE There is trace tricuspid valve regurgitation. PULMONARY VALVE The pulmonary valve is not well visualized. VESSELS The inferior vena cava is normal in size. PERICARDIUM No pericardial effusion. Keara Joyce MD, FACC (Electronically Signed) Final Date:04 June 2017 19:08
--- NOTE | 2017-06-04 19:43 | PD.ID.CON ---
History of Present Illness Service ID Consult Requested By Dr De Souza Reason for Consult psis fever post code Primary Care Physician Alexis Aggarwal MD Diagnoses: History of Present Illness pt is sp code blue earlier today 67 yo male sp sroke became unresponsive while helped to move in bed and code blue was called PEA acitivity Pt was successfully resuscitated and he was intubated, placed on mech vent'n Noted to have fever sinve admission 1 week ago with docuymentaed T amx 102 Started on broad spectrum abx CXR w/o new infiltrate Review of Systems ROS Limitations: Clinical Condition, Intubated Past Family Social History Allergies: Coded Allergies: Iodinated Contrast- Oral and IV Dye (Verified Allergy, Severe, Anaphylaxis , 05/29/17) acetaminophen (Unverified Allergy, Severe, "LIVER PROBLEMS", 05/29/17) diatrizoate meglumine (Unverified Allergy, Severe, Anaphylaxis, 05/29/17) gadobenic acid (Unverified Allergy, Severe, Anaphylaxis, 05/29/17) gadodiamide (Unverified Allergy, Severe, Anaphylaxis, 05/29/17) gadoteridol (Unverified Allergy, Severe, Anaphylaxis, 05/29/17) iodixanol (Unverified Allergy, Severe, Anaphylaxis, 05/29/17) iohexol (Unverified Allergy, Severe, Anaphylaxis, 05/29/17) penicillin G (Unverified Allergy, Severe, "HOT THROAT", 05/29/17) Uncoded Allergies: RADIOISOTOPES (Allergy, Severe, 09/27/13) UNKONWN RXN, LISTED ON PATIENT PAPERWORK FROM [facility]. Past Medical History Left MCA stroke CAD with history of [place] CHF with low ejection fraction 35% (Echo 03/14/17) Hypertension Anemia CKD stage 3 Afib on xarelto Osteoarthritis Hyperlipidemia Diabetes mellitus Hypothyroidism. Past Surgical History Past Surgical History Triple bypass in 2007 Bilateral cataracts surgery Right great toe amputation Right fifth toe amputation Reported Medications Furosemide 20 Mg Tab 40 Mg PO BID@18 Cozaar (Losartan Potassium) 25 Mg Tab 50 Mg PO DAILY Coreg (Carvedilol) 6.25 Mg Tab 6.25 Mg PO BID Aspirin EC (Aspirin) 81 Mg Tabdr 81 Mg PO DAILY Potassium Chloride Microencaps 20 Meq Tab 20 Meq PO DAILY Xanax (Alprazolam) 0.25 Mg Tab 0.25 Mg PO Q6H PRN Oxycodone (Oxycodone HCl) 10 Mg Tab 10 Mg PO Q4H PRN Morphine ER (Morphine Sulfate) 15 Mg Tab 15 Mg PO BID Active Ordered Medications Reviewed Family History Unable to obtain as the patient is comatose Social History Quit smoking 40 yrs ago per records. No alcohol use Past Surgical History Past Surgical History Triple bypass in 2008 Bilateral cataracts surgery Right great toe amputation Right fifth toe amputation Active Ordered Medications Medications where reviewed in EMR Antibiotics Include: vancomycin cipro flagyl Family History unkown Social History Quit smoking 40 yrs ago per records. No alcohol use Physical Exam Vital Signs Vital Signs Date Time Temp Pulse Resp B/P (MAP) Pulse Ox O2 Delivery O2 Flow Rate FiO2 06/04/17 19:11 107 130/64 06/04/17 18:00 100 40 06/04/17 16:45 122 82/42 06/04/17 16:15 100 40 06/04/17 16:15 40 06/04/17 16:11 115 141/67 06/04/17 16:00 100.6 118 12 138/62 (87) 100 06/04/17 15:49 132 164/65 06/04/17 14:50 120 159/72 06/04/17 14:00 120 155/64 06/04/17 13:15 145 88/40 06/04/17 13:00 100 50 06/04/17 08:00 109 06/04/17 08:00 98.1 99 22 168/74 (105) 92 06/04/17 08:00 Nasal Cannula 2.00 06/04/17 04:00 95 06/04/17 03:49 99.2 88 16 135/63 (87) 93 06/04/17 00:00 99 06/04/17 00:00 101.0 88 18 135/63 (87) 96 06/03/17 22:22 Nasal Cannula 2.00 06/03/17 20:00 98.8 86 18 154/71 (98) 95 06/03/17 20:00 82 Physical Exam CONSTITUTIONAL/GENERAL: This is an adequately nourished patient, in no apparent distress. intubated, on vent TUBES/LINES/DRAINS: R SCV TLC R femaoral SKIN: No jaundice, rashes, or lesions. Skin temperature appropriate. Not diaphoretic. HEAD: Atraumatic. Normocephalic. EYES: Pupils equal and round and reactive. Extraocular motions intact. No scleral icterus. No injection or drainage. Fundi not examined. ENT: Hearing grossly normal. Nose without bleeding or purulent drainage. Throat without visible erythema, exudates, masses, or lesions. NECK: Trachea midline. Supple, nontender. No palpable thyroid enlargement or nodularity. CARDIOVASCULAR: Regular rate and rhythm without murmurs, gallops, or rubs. No JVD. Peripheral pulses symmetric. RESPIRATORY/CHEST: Symmetric, unlabored respirations. Clear to auscultation. Breath sounds equal bilaterally. No wheezes, rales, or rhonchi. GASTROINTESTINAL: Abdomen soft, non-tender, nondistended. No hepato-splenomegaly , or palpable masses. No guarding. Bowel sounds present. GENITOURINARY: Without palpable bladder distension. Conde catheter in place with failry clear urine MUSCULOSKELETAL: Extremities without clubbing, cyanosis, BLE with stigmata of recent edema. Multiple shallow alcerations b/l feet including unstagible R heel and R 1st MT head ulceration L tibia shallow ulcer with full thickness skingn loss No joint tenderness or effusion noted. No calf tenderness. No mottling or clubbing. LYMPHATICS: No palpable cervical or supraclavicular adenopathy. NEUROLOGICAL: Awake and alert. Follows commands. Nods approprietly Moves all extremities to command PSYCHIATRIC: No obvious anxiety/depression. no apparent hallucinations or other psychotic thought process. Laboratory Laboratory Tests Test 06/04/17 07:30 06/04/17 13:15 06/04/17 13:35 06/04/17 13:57 White Blood Count 10.4 9.6 Red Blood Count 4.02 3.44 Hemoglobin 10.8 9.5 Hematocrit 33.2 28.3 Mean Corpuscular Volume 82.6 82.3 Mean Corpuscular Hemoglobin 26.9 27.5 Mean Corpuscular Hemoglobin Concent 32.5 33.4 Red Cell Distribution Width 19.5 19.5 Platelet Count 217 261 Mean Platelet Volume 8.5 8.1 Blood Urea Nitrogen 26 27 Creatinine 1.61 1.62 Random Glucose 176 238 Calcium Level 7.6 8.4 Sodium Level 148 151 Potassium Level 3.4 3.5 Chloride Level 111 115 Carbon Dioxide Level 27.5 26.4 Anion Gap 10 10 Estimat Glomerular Filtration Rate 43 42 Random Vancomycin Level 9.6 Blood Gas Puncture Site ART LINE Blood Gas Patient Temperature 98.6 Blood Gas HCO3 23 Blood Gas Base Excess -1.6 Blood Gas Oxygen Saturation 98 Arterial Blood pH 7.37 Arterial Blood Partial Pressure CO2 41 Arterial Blood Partial Pressure O2 376 Arterial Blood Oxygen Content 15.1 Arterial Blood Carboxyhemoglobin 1.1 Arterial Blood Methemoglobin 0.6 Blood Gas Hemoglobin 10.2 Oxygen Delivery Device VENTILATOR Blood Gas Ventilator Setting Blood Gas Inspired Oxygen 100 Total Protein 5.4 Albumin 1.7 Phosphorus Level 4.8 Magnesium Level 1.6 Alkaline Phosphatase 128 Aspartate Amino Transf (AST/SGOT) 91 Alanine Aminotransferase (ALT/SGPT) 65 Total Bilirubin 0.3 Lactic Acid Level 2.4 Total Creatine Kinase 802 Creatine Kinase MB 1.7 Creatine Kinase MB % 0.2 Troponin I 0.13 Nasal Screen MRSA (PCR) POSITIVE Staphylococcus aureus (PCR)(LAB) POSITIVE Date/Time Source Procedure Growth Status 06/04/17 13:35 Blood Peripheral Aerobic Blood Culture Pending Received 06/04/17 13:35 Blood Peripheral Anaerobic Blood Culture Pending Received 06/04/17 16:30 Sputum Endotracheal Gram Stain Pending Received 06/04/17 16:30 Sputum Endotracheal Sputum Culture Pending Received 06/01/17 13:51 Urine Clean Catch Urine Culture - Final NO GROWTH IN 48 HOURS. Complete Result Diagram: 06/04/17 1335 06/04/17 1335 Imaging Last Impressions Chest X-Ray 06/04/17 0000 Signed Impressions: Service Date/Time: Sunday, June 04, 2017 13:32 - CONCLUSION: 1. Cardiomegaly with some interstitial prominence suggesting failure. This is slightly worse when compared to the prior. 2. Endotracheal tube with the tip at the clavicular heads. Nasogastric tube enters the stomach and extends off the inferior aspect of the image. Right subclavian central venous catheter projects over the central venous system. Cuong Betts MD Abdomen X-Ray 06/04/17 0000 Signed Impressions: Service Date/Time: Sunday, June 04, 2017 20:42 - CONCLUSION: There is a solitary dilated loop of bowel in the left hypogastric region measuring in excess of 11 cm, of uncertain organ of origin. If this is small bowel, this may represent a sentinel loop. Connor Price MD Head CT 05/29/17 1726 Signed Impressions: Service Date/Time: May 18:08 - CONCLUSION: 1. No acute intracranial abnormalities. Nilson Jeffries MD Head Magnetic Resonance Angiography 05/29/17 0000 Signed Impressions: Service Date/Time: May 18:31 - CONCLUSION: 1. Suboptimal exam degraded by motion as above. No definite occlusive disease. Nilson Jeffries MD Carotid Artery Ultrasound 05/29/17 0000 Signed Impressions: Service Date/Time: May 19:47 - CONCLUSION: Moderate visible plaque in both carotid arteries. Findings suggest at least a moderate stenosis. This would be better evaluated with CTA carotids. Nilson Jeffries MD Brain MRI 05/29/17 0000 Signed Impressions: Service Date/Time: May 18:31 - CONCLUSION: 1. There is increased signal in the posterior left MCA distribution on the diffusion weighted images characteristic of an acute or subacute infarct. Currently no mass shift or evidence for hemorrhage. Nilson Jeffries MD Abdomen/Pelvis CT 05/29/17 0000 Signed Impressions: Service Date/Time: May 18:10 - CONCLUSION: 1. No acute finding on CT abdomen and pelvis. 2. Calcified gallstones. 3. There is a small hiatal hernia. Distended bladder. 4. 2.3 cm lesion lower pole right kidney not clearly a cyst. Recommend renal ultrasound to assess for cyst versus solid mass. Nilson Jeffries MD Assessment and Plan Assessment and Plan sp PEA sp stroke Fever, Pt having fever since admission cont curent abx fu P clx further rec's to follow Discussed Condition With Trcai Irving MD Jun 04, 2017 19:43
[2017-06-04] MEDS: CHLORHEXIDINE 0.12% (ORAL KIT) 15 ML CUP MT SCH (19:54)
[2017-06-04 20:53] LABS: TROPONIN I 0.16 NG/ML (0.02-0.05)
[2017-06-04] MEDS: ATORVASTATIN 40 MG TAB PO SCH (21:00)
--- NOTE | 2017-06-04 22:10 | HHI.PR ---
Addendum to Inpatient Note Addendum Reason: Additional Documentation Additional Information Residents responded to code blue at approx 1300. On arrival, drywall worker at bedside and CPR underway. Shortly after arrival patient had ROSC and was transferred to ICU for continued management and monitoring. Per [facility] note: "See Code sheet for details-rhythm was pea with A. fib. Patient received 2 amp epinephrine, 1amp of bicarb. CPR continued and after total 5 min there was return of spontaneous circulation. [Patient was] intubated patient during code, after return of spontaneous circulation." Sohail Mendenhall MD Jun 04, 2017 22:10
--- NOTE | 2017-06-04 23:32 | RADRPT ---
EXAM DATE/TIME: 06/04/2017 20:42 [facility] COMPARISON: No previous studies available for comparison. INDICATIONS : Evaluate for ileus. MEDICAL HISTORY : Hypothyroidism. Myocardial infarction. Congestive heart failure. Dementia. Deep vein thrombosis. COPD . Gastroesophageal reflux disease. Renal failure. Arthritis. Osteoporosis. Diabetes. Liver disease. D epression. MRSA. SURGICAL HISTORY : CABG. Bilateral cataract surgery. Amputation of right great toe and little toe. ENCOUNTER: Subsequent ACUITY: 1 week PAIN SCORE: Non-responsive. LOCATION: Abdomen, all quadrant. FINDINGS: Image quality is compromised a body habitus. There is a solitary gaseous distended structure in the left hypogastric region which measures excess of 11 cm. This is of uncertain bowel origin, but appea rs lower than the expected location of the gastric bubble. There is a right femoral catheter in plac e. Moderate degenerative changes in the lower lumbar spine. The visualized lower lungs are clear. CONCLUSION: There is a solitary dilated loop of bowel in the left hypogastric region measuring in excess of 11 cm , of uncertain organ of origin. If this is small bowel, this may represent a sentinel loop. Connor Price MD on June 04, 2017 at 23:28 Board Certified Radiologist. This report was verified electronically.
[2017-06-05] VITALS (14 sets, daily range): BP systolic 108–154; BP diastolic 56–76; PULSE 80–120; RESP 20–26; TEMP 97.9–101.8; O2SAT 95–100
[2017-06-05 01:35] LABS: TROPONIN I 0.2 NG/ML (0.02-0.05)
--- NOTE | 2017-06-05 04:41 | RADRPT ---
EXAM DATE/TIME: 06/05/2017 04:33 [facility] COMPARISON: CT BRAIN W/O CONTRAST, May 29, 2017, 18:08. INDICATIONS : Altered mental status. RADIATION DOSE: 58.32 CTDIvol (mGy) MEDICAL HISTORY : Deep venous thrombosis. Hypertension. Cardiovascular disease SURGICAL HISTORY : None. ENCOUNTER: Initial ACUITY: 2 days PAIN SCALE: Non-responsive LOCATION: cranial TECHNIQUE: Multiple contiguous axial images were obtained of the head. Using automated exposure control and adj ustment of the mA and/or kV according to patient size, radiation dose was kept as low as reasonably a chievable to obtain optimal diagnostic quality images. DICOM format image data is available electro nically for review and comparison. FINDINGS: CEREBRUM: The ventricles and cortical sulci are mildly widened. No evidence of midline shift, mass lesion, hem orrhage or acute infarction. No extra-axial fluid collections are seen. POSTERIOR FOSSA: The cerebellum and brainstem are intact. The 4th ventricle is midline. The cerebellopontine angle i s unremarkable. EXTRACRANIAL: There is increased density seen throughout the right globe. This appearance was present previously. T here appears to be a right scleral band present. There is mild maxillary sinus mucosal disease. SKULL: The calvaria is intact. No evidence of skull fracture. CONCLUSION: 1. No acute intracranial abnormality seen. 2. Mild atrophy. 3. Persistent increased density within the right globe. Ap Quigley MD on June 05, 2017 at 4:37 Board Certified Radiologist. This report was verified electronically.
[2017-06-05] MEDS: LEVOTHYROXINE SODIUM 25 MCG TAB PO SCH (05:50)
[2017-06-05] MEDS: metroNIDAZOLE 500 MG INJ 100 ML IV SCH ×3 (05:50→21:40)
[2017-06-05] MEDS: LEVOTHYROXINE SODIUM 112 MCG TAB PO SCH (05:50)
[2017-06-05] MEDS: ACETAMINOPHEN 325 MG TAB PO PRN ×2 (05:51→23:44)
[2017-06-05 06:36] LABS: AUTOMATED NEUTROPHIL # 8.7 TH/MM3 (1.8-7.7); BASOPHIL % 0.4 % (0.0-2.0); EOSINOPHIL # 0.1 TH/MM3 (0-0.4); EOSINOPHIL % 0.5 % (0.0-4.0); HEMATOCRIT 28.1 % (39.0-51.0); HEMOGLOBIN 9.4 GM/DL (13.0-17.0); LYMPH % 8.1 % (9.0-44.0); LYMPHOCYTE # 0.9 TH/MM3 (1.0-4.8); MEAN CELL VOLUME 80.8 FL (80.0-100.0); MEAN CORPUSCULAR HEMOGLOBIN 27.1 PG (27.0-34.0); MEAN CORPUSCULAR HGB CONC 33.5 % (32.0-36.0); MEAN PLATELET VOLUME 8.5 FL (7.0-11.0); MONO % 8.8 % (0.0-8.0); MONOCYTE # 0.9 TH/MM3 (0-0.9); NEUT % 82.2 % (16.0-70.0); PLATELET COUNT 229 TH/MM3 (150-450); RED BLOOD COUNT 3.47 MIL/MM3 (4.50-5.90); RED CELL DISTRIBUTION WIDTH 19.1 % (11.6-17.2); WHITE BLOOD COUNT 10.6 TH/MM3 (4.0-11.0)
[2017-06-05 07:07] LABS: ALBUMIN 1.6 GM/DL (3.4-5.0); BICARBONATE 23.8 MEQ/L (21.0-32.0); CALCIUM 7.4 MG/DL (8.5-10.1); CALCIUM-PROTEIN CORRECTED 8.3 MG/DL (8.5-10.1); CHOLESTEROL/ HDL RATIO 3.08 RATIO; CREATININE 1.69 MG/DL (0.60-1.30); HDL CHOLESTEROL 18.5 MG/DL (40.0-60.0); MAGNESIUM 1.6 MG/DL (1.5-2.5); PHOSPHORUS 2.1 MG/DL (2.5-4.9); TOTAL BILIRUBIN ADULT 0.3 MG/DL (0.2-1.0); TOTAL PROTEIN 5.5 GM/DL (6.4-8.2); TROPONIN I 0.21 NG/ML (0.02-0.05)
[2017-06-05] MEDS ORDERED: MAGNESIUM OXIDE 400 MG TAB PO PRN ×2 (07:15→07:30)
[2017-06-05] MEDS ORDERED: POTASSIUM CHLOR 40 MEQ PREMIX 100 ML IV PRN ×3 (07:15→07:30)
[2017-06-05] MEDS ORDERED: MAGNESIUM SULFATE INJ 4 GM in SODIUM CHLORIDE 0.9% INJ 92 ML IV PRN ×2 (07:15→07:30)
[2017-06-05] MEDS ORDERED: POTASSIUM PHOSPHATE INJ 30 MMOL in SODIUM CHLOR 0.9% 250 ML INJ 250 ML IV PRN ×2 (07:15→07:30)
[2017-06-05] MEDS ORDERED: POTASSIUM CHLORIDE 25 MEQ EFFERVESCENT TAB PO ONE (07:15)
[2017-06-05] MEDS ORDERED: SODIUM PHOSPHATE INJ 30 MMOL in SODIUM CHLOR 0.9% 250 ML INJ 240 ML IV PRN ×2 (07:15→07:30)
[2017-06-05] MEDS ORDERED: POTASSIUM CHLORIDE 25 MEQ EFFERVESCENT TAB PO PRN ×2 (07:15→07:30)
[2017-06-05] MEDS ORDERED: MAGNESIUM SULFATE INJ 2 GM in SODIUM CHLORIDE 0.9% INJ 96 ML IV PRN ×2 (07:15→07:30)
[2017-06-05] MEDS ORDERED: POTASSIUM CHLOR 20 MEQ PREMIX 100 ML IV PRN ×4 (07:15→07:30)
[2017-06-05] MEDS ORDERED: POTASSIUM PHOSPHATE MONOBASIC 500 MG TAB PO/TUBE PRN ×2 (07:15→07:30)
[2017-06-05] MEDS ORDERED: POTASSIUM PHOSPHATE MONOBASIC 500 MG TAB PO PRN ×2 (07:15→07:30)
[2017-06-05] MEDS: POTASSIUM CHLOR 40 MEQ PREMIX 100 ML IV PRN (07:42)
[2017-06-05] MEDS: INSULIN ASPART SUPPLEMENTAL SCALE SQ SCH ×4 (08:00→21:00)
--- NOTE | 2017-06-05 08:06 | HHI.CCPN ---
Subjective Remarks/Hospital Course Patient is a 67-year-old white male was admitted to the [facility] service on 05/30/17 with acute left MCA stroke with right hemiparesis. He has a past medical history significant for CHF with ejection fraction 25% (echo 06/01), Atrial fibrillation on Xarelto, chronic kidney disease stage III, rhabdomyolysis , Hypertension, Anemia, Hyperlipidemia, Diabetes Mellitus and Hypothyroidism. Apparently patient was in his regular state of health, improving right hemiparesis today am. A code blue was called overhead after the patient was found on the bed unresponsive and pulseless, which I responded immediately. CPR was started. See Code sheet for details-rhythm was pea with A. fib. Patient received 2 amp epinephrine, 1amp of bicarb. CPR continued and after total 5 min there was return of spontaneous circulation. I intubated patient during code, after return of spontaneous circulation. Patient was quickly moved to the ICU where resuscitation was continued with IV fluids boluses. I placed a right femoral arterial line for invasive cardiac/hemodynamic monitoring. As the blood pressure was trending down to low 90s systolic patient was started on Levophed infusion. I also placed a right subclavian central line. Patient remained in atrial fibrillation but blood pressure improved with map consistently above 65 with fluid resuscitation and Levophed infusion. I discussed with patient's guardian, who wants patient to be DNR, but wants to continue aggressive treatment. CT of the head is pending at this time. PE is unlikely as the patient had been on Xarelto for anticoagulation SUBJ 06/05/17: Intubated currently off sedation. Remains encephalopathic, sodium 150. Restart Lasix. Did not tolerate weaning trial due to apnea. Stat echo shows EF 20% Objective Vital Signs Date Time Temp Pulse Resp B/P (MAP) Pulse Ox O2 Delivery O2 Flow Rate FiO2 06/05/17 05:20 99 100 06/05/17 04:00 101.8 120 20 139/76 (97) 06/05/17 03:22 Ventilator 06/04/17 08:00 2.00 Intake and Output 06/05/17 06/05/17 06/06/17 08:00 16:00 00:00 Intake Total 65 ml Output Total 1550 ml Balance -1485 ml Result Diagram: 06/05/17 0545 06/05/17 0545 Other Results Laboratory Tests Test 06/04/17 13:15 Blood Gas Puncture Site ART LINE Blood Gas Patient Temperature 98.6 Blood Gas HCO3 23 mmol/L (22-26) Blood Gas Base Excess -1.6 mmol/L (-2-2) Blood Gas Oxygen Saturation 98 % (90-100) Arterial Blood pH 7.37 (7.380-7.420) Arterial Blood Partial Pressure CO2 41 mmHg (38-42) Arterial Blood Partial Pressure O2 376 mmHg (61-120) Arterial Blood Oxygen Content 15.1 Vol % (12.0-20.0) Arterial Blood Carboxyhemoglobin 1.1 % (0-4) Arterial Blood Methemoglobin 0.6 % (0-2) Blood Gas Hemoglobin 10.2 G/DL (12.0-16.0) Oxygen Delivery Device VENTILATOR Blood Gas Ventilator Setting Blood Gas Inspired Oxygen 100 % Imaging Imaging studies reviewed Objective Remarks GENERAL: Elderly male lethargic, encephalopathic EYES: legally blind per previous notes ENT: Poor dentition. Dry oral mucosa. Orotracheally intubated CARDIOVASCULAR: Irregular heart rate. Systolic murmur heard in all areas RESPIRATORY: Bilaterally equal breath sounds, diminished in the bases GASTROINTESTINAL: Protuberant abdomen, tympanic, improved with NG tube decompression MUSCULOSKELETAL: S/p right great toe and fifth toe amputation, Small ulcers on bilateral anterior fleming, Non stageable pressure ulcer on bilateral sole, eschar left lateral foot NEUROLOGICAL: Observation patient is encephalopathy. Very weakly follows commands on upper extremities A/P Assessment and Plan NEURO: Metabolic encephalopathy Possible anoxic injury Status post left MCA stroke 6 days ago - Encephalopathy post code possible anoxic injury - CT of the head stat 06/04 -no acute changes, MRI 05/29 had show L MCA stroke - Versed for sedation and vent synchrony- Daily sedation vacation RESP: Acute respiratory failure - Intubated during CODE BLUE - ACV, DuoNeb, Vent bundle - Start vent weaning trials, mental status will not permit extubation CV: PEA arrest Cardiogenic shock-resolved Atrial fibrillation on chronic Xarelto Cardiomyopathy with EF 25% - PEA arrest most likely cardiogenic. Received 2 Amps of epinephrine, 1 amp of bicarbonate and 5 minutes of CPR before return of spontaneous circulation - 2D Echo 06/01 with EF 25%. Stat echo postcode EF 20% - Levophed to keep map above 65, now weaned off - Serial cardiac enzymes negative - Resume IV Lasix 40 mg every 12. Hold antihypertensives - Continue aspirin continue Xarelto GI: - NPO, IV Protonix - Start tube feeds with Glucerna if not extubated : Chronic kidney disease - Monitor renal function closely. Conde catheter. Trend CPK - Fluid resuscitation as above ID: Probable sepsis Recurrent fever - Patient is on IV vancomycin and Cipro and Flagyl per family medicine - Due to recurrent fever consult ID consulted Dr. Bello. No diarrhea HEME: - Monitor CBC, CMP, coags ENDO: - Electrolyte replacement per protocol as needed - Sliding-scale insulin PROPH: - Bilateral lower extremity SCDs. Continue Xarelto if CT head negative MSK: - Wound care consulted for bilateral sole pressure ulcer, eschar L lateral feet LINES: - Right subclavian central line and R femoral art line placed in ICU 06/04/17 CC time 45 min discontinuously Neurology currently improving but overall prognosis guarded due to EF 20% and PA cardiac arrest. High risk of acute decompensation. Agree with DNR Airam De Souza MD Jun 05, 2017 08:06
[2017-06-05] MEDS: CHLORHEXIDINE 0.12% (ORAL KIT) 15 ML CUP MT SCH ×2 (08:37→20:00)
[2017-06-05] MEDS: SODIUM CHLORIDE 0.9% FLUSH 10 ML FLUSH IV FLUSH SCH ×2 (08:53→21:42)
[2017-06-05] MEDS: FUROSEMIDE 40 MG/4 ML VIAL IV PUSH SCH ×2 (08:53→17:04)
[2017-06-05] MEDS: CARBAMIDE PEROXIDE 6.5% OTIC SOLN 15 ML BTL EACH EAR SCH (08:53)
[2017-06-05] MEDS: ASPIRIN 325 MG TAB PO SCH (08:53)
[2017-06-05] MEDS: DOCUSATE SODIUM 50 MG/SENNA 8.6 MG TAB PO SCH ×2 (08:53→21:40)
[2017-06-05] MEDS: RIVAROXABAN 15 MG TAB PO SCH (08:54)
[2017-06-05] MEDS: prednisoLONE ACETATE 1% OPHT SUSP 5 ML BTL RIGHT EYE SCH ×2 (08:54→21:00)
--- NOTE | 2017-06-05 08:55 | RADRPT ---
EXAM DATE/TIME: 06/05/2017 07:39 [facility] COMPARISON: No previous studies available for comparison. INDICATIONS : Dilated small bowel loop MEDICAL HISTORY : Hypothyroidism. Myocardial infarction. Congestive heart failure Dementia. Deep vein thrombosis. COPD. Gastroesophageal reflux diseaseRenal failure. Arthritis. Osteoporosis. Diabetes. Liver disease. Depr ession. MRSA SURGICAL HISTORY : CABG. Bilateral cataract surgery. Amputation of right great toe and little toe. ENCOUNTER: Subsequent ACUITY: 1 week PAIN SCORE: Non-responsive. LOCATION: Abdomen FINDINGS: Supine view of the abdomen was performed. The abdominal bowel gas pattern is normal. No abnormal ma sses, calcifications, or organomegaly is seen. The osseous structures are unremarkable. CONCLUSION: Normal examination. The nasogastric is within the proximal stomach Desmond Hudson MD on June 05, 2017 at 8:53 Board Certified Radiologist. This report was verified electronically.
--- NOTE | 2017-06-05 09:14 | RADRPT ---
EXAM DATE/TIME: 06/05/2017 07:30 [facility] COMPARISON: No previous studies available for comparison. INDICATIONS : Respiratory disease MEDICAL HISTORY : Hypothyroidism. Myocardial infarction. Congestive heart failure. Dementia. Deep vein thrombosis. COPD . Gastroesophageal reflux disease. Renal failure. Arthritis. Osteoporosis. Diabetes. Liver disease. D epression MRSA. SURGICAL HISTORY : CABG. Bilateral cataract surgery. Amputation of right great toe and little toe ENCOUNTER: Subsequent ACUITY: 2 days PAIN SCORE: Non-responsive. LOCATION: Chest FINDINGS: A single view of the chest demonstrates the ET tube and nasogastric both in stable positions. NG tub e enters the stomach. There is some indistinctness to both kimberly-diaphragms suggesting small pleural effusions. I do not see any evidence of pneumothorax. Right-sided central line is in good position. CONCLUSION: Small bilateral pleural effusions. ET tube is in good position. Desmond Hudson MD on June 05, 2017 at 8:53 Board Certified Radiologist. This report was verified electronically.
--- NOTE | 2017-06-05 09:47 | HHI.FPPN ---
Subjective Remarks Patient seen and examined today. Currently intubated. Responsive to verbal stimuli. Follows commands well. Patient had had cardiopulmonary arrest yesterday , reported return of spontaneous circulation after approximately 5 minutes. Objective Vitals Vital Signs Date Time Temp Pulse Resp B/P (MAP) Pulse Ox O2 Delivery O2 Flow Rate FiO2 06/05/17 09:13 40 06/05/17 07:56 40 06/05/17 07:53 100 40 06/05/17 07:00 100 Mechanical Ventilator 40 06/05/17 05:20 99 100 06/05/17 04:00 40 06/05/17 04:00 101.8 120 20 139/76 (97) 100 06/05/17 03:22 99 Ventilator 06/05/17 03:17 99 40 06/05/17 00:00 40 06/05/17 00:00 100.3 116 22 108/62 (77) 100 06/04/17 23:58 100 Ventilator 06/04/17 23:50 100 40 06/04/17 20:00 99.8 114 23 158/65 (96) 98 06/04/17 20:00 40 06/04/17 19:54 98 40 06/04/17 19:54 98 Ventilator 40 06/04/17 19:11 107 130/64 06/04/17 19:00 100 Mechanical Ventilator 40 06/04/17 18:00 100 40 06/04/17 16:45 122 82/42 06/04/17 16:15 100 40 06/04/17 16:15 40 06/04/17 16:11 115 141/67 06/04/17 16:00 100.6 118 12 138/62 (87) 100 06/04/17 15:49 132 164/65 06/04/17 14:50 120 159/72 06/04/17 14:00 120 155/64 06/04/17 13:15 145 88/40 06/04/17 13:00 100 50 I/O 06/04/17 06/04/17 06/04/17 06/05/17 06/05/17 06/05/17 07:00 15:00 23:00 07:00 15:00 23:00 Intake Total 240 ml 2915 ml 65 ml Output Total 1450 ml 1450 ml 1550 ml Balance -1450 ml 240 ml 1465 ml -1485 ml Intake Oral 240 ml IV Total 2915 ml 35 ml Tube Irrigant 30 ml Output Urine Total 1450 ml 750 ml 350 ml Gastric Drainage Total 700 ml 1200 ml # Bowel Movements 1 0 Result Diagram: 06/05/1754406/05/17544 Objective Remarks GENERAL: elderly man, intubated, laying in bed, responsive to verbal stimuli SKIN: scaling and dryness of right and left leg EYES: legally blind, yellow crusting of both eyes ENT: dental caries, dry crusting of lips CARDIOVASCULAR: Regular rate and rhythm without murmurs, gallops, or rubs. RESPIRATORY: decreased breath sounds in b/l bases. Coarse breath sounds. Intubated GASTROINTESTINAL: protuberant abdomen, BS+ MUSCULOSKELETAL: contractures of right and left hand, right great toe and fifth toe amputation, skin is erythematous, dry, several ulcers on lower extremities, covered in clean dry intact dressings NEUROLOGICAL: Responsive to verbal stimuli, able to follow commands. A/P Assessment and Plan 67 year old male with CHF (EF 35%), HTN, CKD stage 3, CAD s/p 3 vessel CABG, Afib on xarelto, HTN, HLD, DM admitted for acute infarct of posterior left MCA. Currently on empiric antibiotics due to meeting sepsis criteria. Discharge Planning Unclear timetable at this time PT- return to SNF at [facility]- patient will require speech therapy after discharge OT- OT at rehab, SNF Problem List: (1) Mechanically assisted ventilation ICD Codes: Z99.11 - Mechanically assisted ventilation Status: Acute Plan: Currently on mechanically assisted ventilation status post cardiac arrest and return of spontaneous circulation. -Being managed by mechanical manager -Will likely attempt to wean 06/05 (2) Ischemic stroke ICD Codes: I63.9 - Cerebral infarction, unspecified Plan: Patient presents with aphasia and left-sided weakness and mild right- sided weakness upon arrival to ED. Difficult to establish time of onset,patient most likely outside of window for TPA. Brain MRI demonstrated increased signal in the posterior left MCA distribution on the diffusion of weighted images characteristic of an acute or subacute infarct. Currently no mass shift or evidence hemorrhage. Carotid US: moderate visble plaque in both carotid arteries, findings suggest at least a moderate stenosis. possible significant carotid disease, though not a good candidate for further imaging of the carotids at this point Neurology consulted, recs appreciated. -Continue aspirin 325 mg PO daily -Continue Xarelto 20mg PO daily -Physical therapy (3) Sepsis ICD Codes: A41.9 - Sepsis Status: Acute Plan: Continues to spike fevers up to 101 overnight. No leukocytosis. UA/blood cx negative -CXR today to rule out infection Continue Vancomycin 1500 mg IV, pharmacy consulted for renal dosage, appreciate recs Continue Cipro 400mg IV q18h Continue Flagly 500mg IV q8h (4) Congestive heart failure ICD Codes: I50.9 - Heart failure, unspecified Status: Chronic Plan: Echo form 03/14/17 demonstrated 35% ejection fraction CXR 06/01 revealed cardiomegaly and stable compared to CXR 05/22/17, which revealed slight blunting of the left costophrenic sulcus suggesting a small left pleural effusion CXR 06/01 demonstrated moderate pulmonary vascular congestion Echo 06/01: mildly dilated LV, EF 25%, mild to moderate aortic sclerosis -Home Lasix 40mg PO BID (5) Chronic kidney disease, stage 3 ICD Codes: N18.3 - Chronic kidney disease, stage 3 (moderate) Plan: Baseline Cr. 1.3-1.5; Stable around 1.4-1.6 -Continue to monitor -Nephrology consulted, recs appreciated -Avoid nephrotoxins -Follow I/O (6) Rhabdomyolysis ICD Codes: M62.82 - Rhabdomyolysis Plan: Elevated creatine kinase 2533 most likely due to tremors, decreased to 1397 Improving NS 125mls/hr Continue to monitor Nephrology consulted, appreciate recs (7) Atrial fibrillation ICD Codes: I48.91 - Atrial fibrillation Status: Chronic Plan: -Xarelto 20mg PO daily (8) Hypertension ICD Codes: I10 - Hypertension Status: Chronic Plan: -Continue home meds: Coreg 6.25 mg PO q12 Losartan 50mg PO daily (9) Neurogenic bladder ICD Codes: N31.9 - Neuromuscular dysfunction of bladder, unspecified Plan: Neurogenic bladder due to stroke -Conde catheter placed (10) Hyperlipidemia ICD Codes: E78.5 - Hyperlipidemia Status: Chronic Plan: -Continue Atorvastatin 40mg PO HS (11) Hypothyroidism ICD Codes: E03.9 - Hypothyroidism, unspecified Status: Chronic Plan: -Continue Levothyroxine 112mcg PO daily (12) Diabetes ICD Codes: E11.9 - Diabetes Status: Chronic Plan: -Low dose SS -Held home insulin (13) Nutrition, metabolism, and development symptoms ICD Codes: R63.8 - Other symptoms and signs concerning food and fluid intake Status: Acute Plan: Fluids: none due to CHF Diet: soft mechanical diet Electrolytes: monitor and replace as needed neuro checks q4h, vitals q4, monitor I & Os Case Management Consulted Problem Qualifiers (1) Congestive heart failure: Qualified Codes: I50.9 - Heart failure, unspecified (2) Atrial fibrillation: Qualified Codes: I48.2 - Chronic atrial fibrillation Jermaine Bell MD R1 Jun 05, 2017 09:47
[2017-06-05 09:58] LABS: MAGNESIUM 1.7 MG/DL (1.5-2.5); PHOSPHORUS 2.4 MG/DL (2.5-4.9)
--- NOTE | 2017-06-05 12:29 | HHI.NPPN ---
Subjective General Problems: Anemia, Edema, Hypertension Renal Failure: Chronic, Acute, Stage III History of Present Illness 67-year-old male with a past medical history of ischemic heart disease, congestive heart failure, chronic kidney disease, atrial fibrillation, chronic anemia, diabetes mellitus, hypothyroidism, and peripheral vascular disease who was admitted with a complaint of worsening shortness of breath. I was called to see the patient because of elevated BUN and creatinine. The patient has known history of chronic kidney disease and his baseline creatinine seems to be in the range of 1.3-1.5 most of the time. Additional Remarks Patient remain on the vent., now more awake, and following verbal commands. Objective Data Data 06/05/17 06/06/17 19:00 07:00 Intake Total 100 ml Balance 100 ml IV Total 100 ml Vital Signs Date Time Temp Pulse Resp B/P (MAP) Pulse Ox O2 Delivery O2 Flow Rate FiO2 06/05/17 12:00 99.1 85 25 135/63 (87) 100 06/05/17 11:46 100 40 06/05/17 09:13 40 06/05/17 08:00 99.0 80 24 123/65 (84) 100 06/05/17 08:00 40 06/05/17 07:56 40 06/05/17 07:53 100 40 06/05/17 07:00 100 Mechanical Ventilator 40 06/05/17 05:20 99 100 06/05/17 04:00 40 06/05/17 04:00 101.8 120 20 139/76 (97) 100 06/05/17 03:22 99 Ventilator 06/05/17 03:17 99 40 06/05/17 00:00 40 06/05/17 00:00 100.3 116 22 108/62 (77) 100 06/04/17 23:58 100 Ventilator 06/04/17 23:50 100 40 06/04/17 20:00 99.8 114 23 158/65 (96) 98 06/04/17 20:00 40 06/04/17 19:54 98 40 06/04/17 19:54 98 Ventilator 40 06/04/17 19:11 107 130/64 06/04/17 19:00 100 Mechanical Ventilator 40 06/04/17 18:00 100 40 06/04/17 16:45 122 82/42 06/04/17 16:15 100 40 06/04/17 16:15 40 06/04/17 16:11 115 141/67 06/04/17 16:00 100.6 118 12 138/62 (87) 100 06/04/17 15:49 132 164/65 06/04/17 14:50 120 159/72 06/04/17 14:00 120 155/64 06/04/17 13:15 145 88/40 06/04/17 13:00 100 50 -: 06/05/17 0545 06/05/17 0545 Microbiology 06/05/17 Aerobic Blood Culture, Received Pending 06/05/17 Anaerobic Blood Culture, Received Pending 06/04/17 Aerobic Blood Culture - Preliminary, Resulted NO GROWTH IN 1 DAY 06/04/17 Anaerobic Blood Culture - Preliminary, Resulted NO GROWTH IN 1 DAY 06/04/17 Gram Stain - Final, Resulted 06/04/17 Sputum Culture, Resulted Pending Physical Exam General Appearance Remarks intubated and sedated. Eyes Eye Exam: Pupils Equal Throat Throat Exam: Oral Mucosa [place] & Moist Neck Neck Exam: Neck Supple Pulmonary Resp Exam: Breath Sounds Equal, No Distress, Rhonchi, Decreased Bases Cardiology CV Exam: Regular, Normal Sinus Rhythm Gastrointestinal/Abdomen GI Exam: Soft, Non-Tender, Bowel Sounds Present Extremeties Extremities Exam: Trace Edema (Bilateral scalling and dryness of skin, in lower leg.) Neurologic Neuro Exam: Unresponsive, Sedated Assessment/Plan Assessment Summary: KATERIN/Acute Renal Failure, Hypertension, CKD Stage III Problem List: (1) Acute kidney injury ICD Codes: N17.9 - Acute kidney failure, unspecified (2) Altered mental status ICD Codes: R41.82 - Altered mental status Status: Acute (3) Hx of deep venous thrombosis ICD Codes: Z86.718 - History of deep venous thrombosis Status: Chronic (4) CHF (congestive heart failure) ICD Codes: I50.9 - Congestive heart failure Status: Resolved (5) Diabetes ICD Codes: E11.9 - Diabetes Status: Chronic (6) Hypothyroidism ICD Codes: E03.9 - Hypothyroidism, unspecified Status: Chronic (7) Hypertension ICD Codes: I10 - Hypertension Status: Chronic (8) Chronic kidney disease, stage 3 ICD Codes: N18.3 - Chronic kidney disease, stage 3 (moderate) (9) Rhabdomyolysis ICD Codes: M62.82 - Rhabdomyolysis Plan Patient has been non oliguric. Has chronic kidney disease with baseline Creatinine 1.3-1.5. Most likely has chronic kidney disease due to Hypertensive or renovascular disease. Now develop KATERIN, possibly due to Rhabdo. or Obstructive uropathy. Develop cardiac arrest and intubated. BP is now stable, Urine out put is adequate. Creatinine is stable at 1.6, was increased slightly with cardiac arrest. Now for possible extubation. Sunita Martin MD Jun 05, 2017 12:29
[2017-06-05] MEDS ORDERED: PHARMACY ORDERED LAB ONE (14:45)
[2017-06-05] MEDS: VANCOMYCIN INJ 1,500 MG in SODIUM CHLORID 0.9% 500 ML INJ 500 ML IV SCH (15:23)
--- NOTE | 2017-06-05 15:24 | EKG ---
Date Performed: 06/04/2017 Time Performed: 14:18:46 PTAGE: 67 years EKG: Atrial fibrillation with rapid ventricular response. Poor R wave progression - probable nor mal variant Inferior/lateral ST-T changes are nonspecific Abnormal ECG PREVIOUS TRACING : 05/30/2017 04.55 Compared to prior tracing no significant change DOCTOR: Moi Riggs Interpretating Date/Time 06/05/2017 15:23:08
[2017-06-05 16:49] LABS: PHOSPHORUS 3.6 MG/DL (2.5-4.9)
[2017-06-05] MEDS: PANTOPRAZOLE SODIUM 40 MG VIAL IV PUSH SCH (17:04)
[2017-06-05] MEDS: CIPROFLOXACIN 400 MG PREMIX 200 ML IV SCH (17:04)
[2017-06-05] MEDS: ATORVASTATIN 40 MG TAB PO SCH (21:00)
[2017-06-05] MEDS: ALPRAZolam 0.25 MG TAB PO PRN (21:40)
[2017-06-05] MEDS: SODIUM CHLORIDE 0.9% FLUSH 10 ML FLUSH IV FLUSH PRN (21:42)
[2017-06-06] VITALS (9 sets, daily range): BP systolic 134–173; BP diastolic 54–98; PULSE 98–116; RESP 18–28; TEMP 98.2–101.8; O2SAT 96–99
[2017-06-06] MEDS: metroNIDAZOLE 500 MG INJ 100 ML IV SCH ×2 (04:11→11:58)
[2017-06-06] MEDS: ACETAMINOPHEN 325 MG TAB PO PRN ×3 (04:12→23:02)
[2017-06-06 04:58] LABS: AUTOMATED NEUTROPHIL # 8.6 TH/MM3 (1.8-7.7); BASOPHIL # 0.1 TH/MM3 (0-0.2); BASOPHIL % 0.8 % (0.0-2.0); EOSINOPHIL # 0.4 TH/MM3 (0-0.4); EOSINOPHIL % 3.6 % (0.0-4.0); HEMOGLOBIN 8.9 GM/DL (13.0-17.0); LYMPH % 7.5 % (9.0-44.0); LYMPHOCYTE # 0.8 TH/MM3 (1.0-4.8); MEAN CELL VOLUME 81.7 FL (80.0-100.0); MEAN CORPUSCULAR HEMOGLOBIN 26.9 PG (27.0-34.0); MEAN CORPUSCULAR HGB CONC 32.9 % (32.0-36.0); MONO % 8.6 % (0.0-8.0); MONOCYTE # 0.9 TH/MM3 (0-0.9); NEUT % 79.5 % (16.0-70.0); PLATELET COUNT 243 TH/MM3 (150-450); RED CELL DISTRIBUTION WIDTH 19.5 % (11.6-17.2); WHITE BLOOD COUNT 10.8 TH/MM3 (4.0-11.0)
[2017-06-06 05:23] LABS: ALBUMIN 1.7 GM/DL (3.4-5.0); BICARBONATE 28.6 MEQ/L (21.0-32.0); CALCIUM 7.4 MG/DL (8.5-10.1); CALCIUM-PROTEIN CORRECTED 8.3 MG/DL (8.5-10.1); CREATININE 1.57 MG/DL (0.60-1.30); MAGNESIUM 1.5 MG/DL (1.5-2.5); TOTAL BILIRUBIN ADULT 0.3 MG/DL (0.2-1.0); TOTAL PROTEIN 5.5 GM/DL (6.4-8.2)
[2017-06-06] MEDS: LEVOTHYROXINE SODIUM 112 MCG TAB PO SCH (05:38)
[2017-06-06] MEDS: LEVOTHYROXINE SODIUM 25 MCG TAB PO SCH (05:38)
--- NOTE | 2017-06-06 06:38 | RADRPT ---
EXAM DATE/TIME: 06/06/2017 03:50 [facility] COMPARISON: CHEST SINGLE AP, June 05, 2017, 7:30. INDICATIONS : Respiratory disease. MEDICAL HISTORY : Congestive heart failure. Hypothyroidism. Deep vein thrombosis. Myocardial infarction.Dementia. Gastr oesophageal reflux disease. Diabetes mellitus type II. Renal failure. Chronic obstructive pulmonary d isease.type II. Cardiovascular disease.Chronic obstructive pulmonary disease. Diverticulitis. Hypert ension. Liver disease. Depression MRSA. SURGICAL HISTORY : CABG.Bilateral cataract surgery. Amputation of right great toe and little toe ENCOUNTER: Subsequent ACUITY: 3 days PAIN SCORE: Non-responsive. LOCATION: Bilateral chest FINDINGS: There has been interval extubation and removal of nasogastric tube. Right subclavian central line rem ains in place. Aeration is grossly stable with mild hazy bibasilar pleuroparenchymal opacity. Cardiac contours are grossly unchanged. CONCLUSION: Interval extubation. Stable aeration. Ap Javed MD on June 06, 2017 at 6:34 Board Certified Radiologist. This report was verified electronically.
[2017-06-06] MEDS: CHLORHEXIDINE 0.12% (ORAL KIT) 15 ML CUP MT SCH ×2 (07:29→20:00)
[2017-06-06] MEDS: POTASSIUM CHLOR 40 MEQ PREMIX 100 ML IV PRN (07:29)
[2017-06-06] MEDS: INSULIN ASPART SUPPLEMENTAL SCALE SQ SCH ×4 (08:00→21:00)
[2017-06-06] MEDS: CARBAMIDE PEROXIDE 6.5% OTIC SOLN 15 ML BTL EACH EAR SCH (09:00)
[2017-06-06] MEDS: FUROSEMIDE 40 MG/4 ML VIAL IV PUSH SCH ×2 (09:32→18:18)
[2017-06-06] MEDS: SODIUM CHLORIDE 0.9% FLUSH 10 ML FLUSH IV FLUSH SCH ×2 (09:33→23:03)
[2017-06-06] MEDS: DOCUSATE SODIUM 50 MG/SENNA 8.6 MG TAB PO SCH ×2 (09:33→21:00)
[2017-06-06] MEDS: ASPIRIN 325 MG TAB PO SCH (09:33)
[2017-06-06] MEDS: RIVAROXABAN 15 MG TAB PO SCH (09:33)
[2017-06-06] MEDS: prednisoLONE ACETATE 1% OPHT SUSP 5 ML BTL RIGHT EYE SCH ×2 (09:34→23:04)
--- NOTE | 2017-06-06 10:08 | HHI.FPPN ---
Subjective Remarks Patient seen and examined this morning. Patient was successfully extubated yesterday, and is now on 4 L of nasal cannula. Ports feeling well this morning. No difficulty breathing. Some muscle soreness in his upper abdominal area. Again discussed with patient, who confirms that he wants full code. Denies any chest pain, abdominal pain, leg pain. Objective Vitals Vital Signs Date Time Temp Pulse Resp B/P (MAP) Pulse Ox O2 Delivery O2 Flow Rate FiO2 06/06/17 08:29 99 Nasal Cannula 4.00 06/06/17 08:00 99.1 100 28 159/67 (97) 98 06/06/17 07:00 98 Nasal Cannula 4.00 06/06/17 07:00 107 06/06/17 04:00 98 06/06/17 04:00 99.0 104 26 134/68 (90) 98 138/56 (83) 06/06/17 00:00 98.2 101 26 147/57 (87) 98 147/54 (85) 06/06/17 00:00 101 06/05/17 20:00 96 06/05/17 20:00 98.3 96 22 149/61 (90) 96 140/56 (84) 06/05/17 19:30 100 Nasal Cannula 4.00 06/05/17 19:00 96 Nasal Cannula 4.00 06/05/17 17:20 100 Nasal Cannula 4 06/05/17 17:20 100 Nasal Cannula 4.00 06/05/17 16:00 97.9 84 26 154/57 (89) 95 06/05/17 15:10 100 40 06/05/17 12:00 99.1 85 25 135/63 (87) 100 06/05/17 11:46 100 40 I/O 06/05/17 06/05/17 06/05/17 06/06/17 06/06/17 06/06/17 07:00 15:00 23:00 07:00 15:00 23:00 Intake Total 65 ml 200 ml 815 ml 1500 ml Output Total 1550 ml 1800 ml 700 ml Balance -1485 ml 200 ml -985 ml 800 ml Intake Oral 1400 ml IV Total 35 ml 200 ml 815 ml 100 ml Tube Irrigant 30 ml Output Urine Total 350 ml 1800 ml 700 ml Gastric Drainage Total 1200 ml # Bowel Movements 0 1 1 Result Diagram: 06/06/1744406/06/17444 Objective Remarks GENERAL: elderly man, intubated, laying in bed, responsive to verbal stimuli SKIN: scaling and dryness of right and left leg EYES: legally blind, yellow crusting of both eyes ENT: dental caries, dry crusting of lips CARDIOVASCULAR: Regular rate and rhythm RESPIRATORY: decreased breath sounds in b/l bases. Coarse breath sounds throughout. GASTROINTESTINAL: protuberant abdomen, BS+ MUSCULOSKELETAL: contractures of right and left hand, right great toe and fifth toe amputation, skin is erythematous, dry, several ulcers on lower extremities, covered in clean dry intact dressings NEUROLOGICAL: Responsive to verbal stimuli, able to follow commands. A/P Assessment and Plan 67 year old male with CHF (EF 35%), HTN, CKD stage 3, CAD s/p 3 vessel CABG, Afib on xarelto, HTN, HLD, DM admitted for acute infarct of posterior left MCA. Currently on empiric antibiotics due to meeting sepsis criteria. Discharge Planning Unclear timetable at this time PT- return to SNF at [facility] ST- patient will require speech therapy after discharge OT- OT at rehab, SNF Problem List: (1) Pneumonia ICD Codes: J18.9 - Pneumonia Status: Acute Plan: Sputum culture grew MRSA and E. Coli. Possibly aspiration pneumonia Pt on Vancomycin, Flagyl, Cipro ID consulted-appreciate recs. (2) Mechanically assisted ventilation ICD Codes: Z99.11 - Mechanically assisted ventilation Status: Resolved Plan: Extubated 06/05 status post cardiac arrest and return of spontaneous circulation on 06/04 May be stable to transferred to med/surg floor today Surveying Or Spatial Science Technician consulted-appreciate recs (3) Ischemic stroke ICD Codes: I63.9 - Cerebral infarction, unspecified Plan: Patient presents with aphasia and left-sided weakness and mild right- sided weakness upon arrival to ED. Difficult to establish time of onset,patient most likely outside of window for TPA. Brain MRI demonstrated increased signal in the posterior left MCA distribution on the diffusion of weighted images characteristic of an acute or subacute infarct. Currently no mass shift or evidence hemorrhage. Carotid US: moderate visble plaque in both carotid arteries, findings suggest at least a moderate stenosis. possible significant carotid disease, though not a good candidate for further imaging of the carotids at this point Neurology consulted, recs appreciated. -Continue aspirin 325 mg PO daily -Continue Xarelto 20mg PO daily -Physical therapy (4) Sepsis ICD Codes: A41.9 - Sepsis Status: Acute Plan: Afebrile last night. No leukocytosis. UA/blood cx negative CXR shows bibasilar opacities ID consulted-appreciate recs Continue Vancomycin 1500 mg IV, pharmacy consulted for renal dosage, appreciate recs Continue Cipro 400mg IV q18h Continue Flagly 500mg IV q8h (5) Congestive heart failure ICD Codes: I50.9 - Heart failure, unspecified Status: Chronic Plan: Echo form 03/14/17 demonstrated 35% ejection fraction CXR 06/01 revealed cardiomegaly and stable compared to CXR 05/22/17, which revealed slight blunting of the left costophrenic sulcus suggesting a small left pleural effusion CXR 06/01 demonstrated moderate pulmonary vascular congestion Echo 06/01: mildly dilated LV, EF 25%, mild to moderate aortic sclerosis -Home Lasix 40mg PO BID (6) Chronic kidney disease, stage 3 ICD Codes: N18.3 - Chronic kidney disease, stage 3 (moderate) Plan: Baseline Cr. 1.3-1.5; Stable around 1.4-1.6 -Continue to monitor -Nephrology consulted, recs appreciated -Avoid nephrotoxins -Follow I/O (7) Rhabdomyolysis ICD Codes: M62.82 - Rhabdomyolysis Plan: Elevated creatine kinase 2533 most likely due to tremors, decreased to 1397 Improving NS 125mls/hr Continue to monitor Nephrology consulted, appreciate recs (8) Atrial fibrillation ICD Codes: I48.91 - Atrial fibrillation Status: Chronic Plan: -Xarelto 20mg PO daily (9) Hypertension ICD Codes: I10 - Hypertension Status: Chronic Plan: -Continue home meds: Coreg 6.25 mg PO q12 Losartan 50mg PO daily (10) Neurogenic bladder ICD Codes: N31.9 - Neuromuscular dysfunction of bladder, unspecified Plan: Neurogenic bladder due to stroke -Conde catheter placed (11) Hyperlipidemia ICD Codes: E78.5 - Hyperlipidemia Status: Chronic Plan: -Continue Atorvastatin 40mg PO HS (12) Hypothyroidism ICD Codes: E03.9 - Hypothyroidism, unspecified Status: Chronic Plan: -Continue Levothyroxine 112mcg PO daily (13) Diabetes ICD Codes: E11.9 - Diabetes Status: Chronic Plan: -Low dose SS -Held home insulin (14) Nutrition, metabolism, and development symptoms ICD Codes: R63.8 - Other symptoms and signs concerning food and fluid intake Status: Acute Plan: Fluids: none due to CHF Diet: soft mechanical diet Electrolytes: monitor and replace as needed Problem Qualifiers (1) Pneumonia: Qualified Codes: J15.212 - Pneumonia due to methicillin resistant Staphylococcus aureus (2) Congestive heart failure: Qualified Codes: I50.9 - Heart failure, unspecified (3) Atrial fibrillation: Qualified Codes: I48.2 - Chronic atrial fibrillation Ángel Pulido MD, R2 Jun 06, 2017 10:08
[2017-06-06] MEDS: CIPROFLOXACIN 400 MG PREMIX 200 ML IV SCH (10:18)
[2017-06-06] MEDS ORDERED: NALOXONE HCL 0.4 MG/ML AMP IV PUSH PRN (10:30)
[2017-06-06] MEDS: MORPHINE SULFATE 2 MG/ML INJ IV PUSH PRN ×2 (11:58→16:09)
[2017-06-06] MEDS: cefTRIAXone INJ 2,000 MG in SODIUM CHLORIDE 0.9% INJ 100 ML IV SCH (12:32)
--- NOTE | 2017-06-06 14:04 | HHI.IDPN ---
Subjective Subjective Remarks pt is doing good extubated On NC O2 blood clx negative Antibiotics vanco CFTX Allergies: Coded Allergies: Iodinated Contrast- Oral and IV Dye (Verified Allergy, Severe, Anaphylaxis , 05/29/17) acetaminophen (Unverified Allergy, Severe, "LIVER PROBLEMS", 05/29/17) diatrizoate meglumine (Unverified Allergy, Severe, Anaphylaxis, 05/29/17) gadobenic acid (Unverified Allergy, Severe, Anaphylaxis, 05/29/17) gadodiamide (Unverified Allergy, Severe, Anaphylaxis, 05/29/17) gadoteridol (Unverified Allergy, Severe, Anaphylaxis, 05/29/17) iodixanol (Unverified Allergy, Severe, Anaphylaxis, 05/29/17) iohexol (Unverified Allergy, Severe, Anaphylaxis, 05/29/17) penicillin G (Unverified Allergy, Severe, "HOT THROAT", 05/29/17) Uncoded Allergies: RADIOISOTOPES (Allergy, Severe, 09/27/13) UNKONWN RXN, LISTED ON PATIENT PAPERWORK FROM [facility]ELGAR. Objective . Vital Signs Date Time Temp Pulse Resp B/P (MAP) Pulse Ox O2 Delivery O2 Flow Rate FiO2 06/06/17 12:00 99.0 102 24 173/70 (104) 96 06/06/17 08:29 99 Nasal Cannula 4.00 06/06/17 08:00 99.1 100 28 159/67 (97) 98 06/06/17 07:00 98 Nasal Cannula 4.00 06/06/17 07:00 107 06/06/17 04:00 98 06/06/17 04:00 99.0 104 26 134/68 (90) 98 138/56 (83) 06/06/17 00:00 98.2 101 26 147/57 (87) 98 147/54 (85) 06/06/17 00:00 101 06/05/17 20:00 96 06/05/17 20:00 98.3 96 22 149/61 (90) 96 140/56 (84) 06/05/17 19:30 100 Nasal Cannula 4.00 06/05/17 19:00 96 Nasal Cannula 4.00 06/05/17 17:20 100 Nasal Cannula 4 06/05/17 17:20 100 Nasal Cannula 4.00 06/05/17 16:00 97.9 84 26 154/57 (89) 95 06/05/17 15:10 100 40 06/06/17 06/06/17 06/07/17 15:00 23:00 07:00 Intake Total 348 ml Balance 348 ml IV Total 348 ml . Laboratory Tests Test 06/05/17 05:45 06/06/17 04:45 White Blood Count 10.6 TH/MM3 10.8 TH/MM3 Red Blood Count 3.47 MIL/MM3 3.30 MIL/MM3 Hemoglobin 9.4 GM/DL 8.9 GM/DL Hematocrit 28.1 % 27.0 % Mean Corpuscular Volume 80.8 FL 81.7 FL Mean Corpuscular Hemoglobin 27.1 PG 26.9 PG Mean Corpuscular Hemoglobin Concent 33.5 % 32.9 % Red Cell Distribution Width 19.1 % 19.5 % Platelet Count 229 TH/MM3 243 TH/MM3 Mean Platelet Volume 8.5 FL 8.0 FL Neutrophils (%) (Auto) 82.2 % 79.5 % Lymphocytes (%) (Auto) 8.1 % 7.5 % Monocytes (%) (Auto) 8.8 % 8.6 % Eosinophils (%) (Auto) 0.5 % 3.6 % Basophils (%) (Auto) 0.4 % 0.8 % Neutrophils # (Auto) 8.7 TH/MM3 8.6 TH/MM3 Lymphocytes # (Auto) 0.9 TH/MM3 0.8 TH/MM3 Monocytes # (Auto) 0.9 TH/MM3 0.9 TH/MM3 Eosinophils # (Auto) 0.1 TH/MM3 0.4 TH/MM3 Basophils # (Auto) 0.0 TH/MM3 0.1 TH/MM3 CBC Comment DIFF FINAL DIFF FINAL Differential Comment Laboratory Tests Test 06/04/17 20:00 06/05/17 00:42 06/05/17 05:45 06/05/17 08:59 Total Creatine Kinase 713 U/L 698 U/L 636 U/L Creatine Kinase MB 1.9 NG/ML 1.3 NG/ML 0.8 NG/ML Creatine Kinase MB % 0.3 % 0.2 % 0.1 % Troponin I 0.16 NG/ML 0.20 NG/ML 0.21 NG/ML Blood Urea Nitrogen 28 MG/DL Creatinine 1.69 MG/DL Random Glucose 132 MG/DL Total Protein 5.5 GM/DL Albumin 1.6 GM/DL Calcium Level 7.4 MG/DL Phosphorus Level 2.1 MG/DL 2.4 MG/DL Magnesium Level 1.6 MG/DL 1.7 MG/DL Alkaline Phosphatase 102 U/L Aspartate Amino Transf (AST/SGOT) 57 U/L Alanine Aminotransferase (ALT/SGPT) 55 U/L Total Bilirubin 0.3 MG/DL Sodium Level 150 MEQ/L Potassium Level 3.3 MEQ/L Chloride Level 116 MEQ/L Carbon Dioxide Level 23.8 MEQ/L Anion Gap 10 MEQ/L Estimat Glomerular Filtration Rate 40 ML/MIN Lactic Acid Level 1.2 mmol/L Protein Corrected Calcium 8.3 MG/DL Ammonia 12 MCMOL/L Triglycerides Level 104 MG/DL Cholesterol Level 57 MG/DL LDL Cholesterol 18 MG/DL HDL Cholesterol 18.5 MG/DL Cholesterol/HDL Ratio 3.08 RATIO Amylase Level 46 U/L Lipase 163 U/L Thyroid Stimulating Hormone 3rd Gen 1.200 uIU/ML Test 06/05/17 16:00 06/06/17 04:45 Potassium Level 3.7 MEQ/L 3.4 MEQ/L Phosphorus Level 3.6 MG/DL Blood Urea Nitrogen 27 MG/DL Creatinine 1.57 MG/DL Random Glucose 99 MG/DL Total Protein 5.5 GM/DL Albumin 1.7 GM/DL Calcium Level 7.4 MG/DL Magnesium Level 1.5 MG/DL Alkaline Phosphatase 86 U/L Aspartate Amino Transf (AST/SGOT) 43 U/L Alanine Aminotransferase (ALT/SGPT) 45 U/L Total Bilirubin 0.3 MG/DL Sodium Level 149 MEQ/L Chloride Level 112 MEQ/L Carbon Dioxide Level 28.6 MEQ/L Anion Gap 8 MEQ/L Estimat Glomerular Filtration Rate 44 ML/MIN Protein Corrected Calcium 8.3 MG/DL Microbiology Date/Time Source Procedure Growth Status 06/05/17 00:42 Blood Peripheral Aerobic Blood Culture - Preliminary NO GROWTH IN 1 DAY Resulted 06/05/17 00:42 Blood Peripheral Anaerobic Blood Culture - Preliminary NO GROWTH IN 1 DAY Resulted 06/04/17 13:35 Blood Peripheral Aerobic Blood Culture - Preliminary NO GROWTH IN 2 DAYS Resulted 06/04/17 13:35 Blood Peripheral Anaerobic Blood Culture - Preliminary NO GROWTH IN 2 DAYS Resulted 06/04/17 16:30 Sputum Endotracheal Gram Stain - Final Resulted 06/04/17 16:30 Sputum Culture - Preliminary S. Aureus Mrsa Escherichia Coli Resulted Imaging Last Impressions Chest X-Ray 06/06/17 0600 Signed Impressions: Service Date/Time: Tuesday, June 06, 2017 03:50 - CONCLUSION: Interval extubation. Stable aeration. Ap Javed MD Abdomen X-Ray 06/05/17 0000 Signed Impressions: Service Date/Time: May 07:39 - CONCLUSION: Normal examination. The nasogastric is within the proximal stomach Desmond Hudson MD Head CT 06/04/17 0000 Signed Impressions: Service Date/Time: May 04:33 - CONCLUSION: 1. No acute intracranial abnormality seen. 2. Mild atrophy. 3. Persistent increased density within the right globe. Ap Quigley MD Head Magnetic Resonance Angiography 05/29/17 0000 Signed Impressions: Service Date/Time: May 18:31 - CONCLUSION: 1. Suboptimal exam degraded by motion as above. No definite occlusive disease. Nilson Jeffries MD Carotid Artery Ultrasound 05/29/17 0000 Signed Impressions: Service Date/Time: May 19:47 - CONCLUSION: Moderate visible plaque in both carotid arteries. Findings suggest at least a moderate stenosis. This would be better evaluated with CTA carotids. Nilson Jeffries MD Brain MRI 05/29/17 0000 Signed Impressions: Service Date/Time: May 18:31 - CONCLUSION: 1. There is increased signal in the posterior left MCA distribution on the diffusion weighted images characteristic of an acute or subacute infarct. Currently no mass shift or evidence for hemorrhage. Nilson Jeffries MD Abdomen/Pelvis CT 05/29/17 0000 Signed Impressions: Service Date/Time: May 18:10 - CONCLUSION: 1. No acute finding on CT abdomen and pelvis. 2. Calcified gallstones. 3. There is a small hiatal hernia. Distended bladder. 4. 2.3 cm lesion lower pole right kidney not clearly a cyst. Recommend renal ultrasound to assess for cyst versus solid mass. Nilson Jeffries MD Physical Exam CONSTITUTIONAL/GENERAL: This is an adequately nourished patient, in no apparent distress. intubated, on vent TUBES/LINES/DRAINS: R SCV TLC R femaoral SKIN: No jaundice, rashes, or lesions. Skin temperature appropriate. Not diaphoretic. CARDIOVASCULAR: Regular rate and rhythm without murmurs, gallops, or rubs. No JVD. Peripheral pulses symmetric. RESPIRATORY/CHEST: Symmetric, unlabored respirations. Clear to auscultation. Breath sounds equal bilaterally. No wheezes, rales, or rhonchi. GASTROINTESTINAL: Abdomen soft, non-tender, nondistended. No hepato-splenomegaly , or palpable masses. No guarding. Bowel sounds present. GENITOURINARY: Without palpable bladder distension. Conde catheter in place with failry clear urine MUSCULOSKELETAL: Extremities without clubbing, cyanosis, BLE with stigmata of recent edema. Multiple shallow alcerations b/l feet including unstagible R heel and R 1st MT head ulceration L tibia shallow ulcer with full thickness skingn loss No joint tenderness or effusion noted. No calf tenderness. No mottling or clubbing. NEUROLOGICAL: Awake and alert. Appropriate verbal response. Follows commands PSYCHIATRIC: No obvious anxiety/depression. no apparent hallucinations or other psychotic thought process. Assessment & Plan Remarks sp PEA sp stroke Fever, ? B/b PNA Pt having fever since admission cont CFTX, vanco x 7 days dw critical care Traci Bello MD Jun 06, 2017 14:04
[2017-06-06] MEDS ORDERED: PHARMACY ORDERED LAB ONE (14:45)
--- NOTE | 2017-06-06 15:13 | HHI.NPPN ---
Subjective General Problems: Anemia, Edema, Hypertension Renal Failure: Chronic, Acute, Stage III History of Present Illness 67-year-old male with a past medical history of ischemic heart disease, congestive heart failure, chronic kidney disease, atrial fibrillation, chronic anemia, diabetes mellitus, hypothyroidism, and peripheral vascular disease who was admitted with a complaint of worsening shortness of breath. I was called to see the patient because of elevated BUN and creatinine. The patient has known history of chronic kidney disease and his baseline creatinine seems to be in the range of 1.3-1.5 most of the time. Additional Remarks Patient is awake, was extubated yesterday evening, doing better. Objective Data Data 06/06/17 06/07/17 19:00 07:00 Intake Total 448 ml Output Total 950 ml Balance -502 ml IV Total 448 ml Output Urine Total 950 ml # Bowel Movements 1 Vital Signs Date Time Temp Pulse Resp B/P (MAP) Pulse Ox O2 Delivery O2 Flow Rate FiO2 06/06/17 12:00 99.0 102 24 173/70 (104) 96 06/06/17 08:29 99 Nasal Cannula 4.00 06/06/17 08:00 99.1 100 28 159/67 (97) 98 06/06/17 07:00 98 Nasal Cannula 4.00 06/06/17 07:00 107 06/06/17 04:00 98 06/06/17 04:00 99.0 104 26 134/68 (90) 98 138/56 (83) 06/06/17 00:00 98.2 101 26 147/57 (87) 98 147/54 (85) 06/06/17 00:00 101 06/05/17 20:00 96 06/05/17 20:00 98.3 96 22 149/61 (90) 96 140/56 (84) 06/05/17 19:30 100 Nasal Cannula 4.00 06/05/17 19:00 96 Nasal Cannula 4.00 06/05/17 17:20 100 Nasal Cannula 4 06/05/17 17:20 100 Nasal Cannula 4.00 06/05/17 16:00 97.9 84 26 154/57 (89) 95 -: 06/06/17 0445 06/06/17 0445 Physical Exam General Appearance: No Acute Distress, Comfortable Eyes Eye Exam: Pupils Equal Throat Throat Exam: Oral Mucosa [place] & Moist Neck Neck Exam: Neck Supple Pulmonary Resp Exam: Breath Sounds Equal, No Distress, Rhonchi, Decreased Bases Cardiology CV Exam: Regular, Normal Sinus Rhythm Gastrointestinal/Abdomen GI Exam: Soft, Non-Tender, Bowel Sounds Present Extremeties Extremities Exam: Trace Edema (Bilateral scalling and dryness of skin, in lower leg.) Neurologic Neuro Exam: Alert, Awake, Oriented Psychiatric Psych Exam: Appropriate Responses Assessment/Plan Assessment Summary: KATERIN/Acute Renal Failure, Hypertension, CKD Stage III Problem List: (1) Acute kidney injury ICD Codes: N17.9 - Acute kidney failure, unspecified (2) Altered mental status ICD Codes: R41.82 - Altered mental status Status: Acute (3) Hx of deep venous thrombosis ICD Codes: Z86.718 - History of deep venous thrombosis Status: Chronic (4) CHF (congestive heart failure) ICD Codes: I50.9 - Congestive heart failure Status: Resolved (5) Diabetes ICD Codes: E11.9 - Diabetes Status: Chronic (6) Hypothyroidism ICD Codes: E03.9 - Hypothyroidism, unspecified Status: Chronic (7) Hypertension ICD Codes: I10 - Hypertension Status: Chronic (8) Chronic kidney disease, stage 3 ICD Codes: N18.3 - Chronic kidney disease, stage 3 (moderate) (9) Rhabdomyolysis ICD Codes: M62.82 - Rhabdomyolysis Plan Patient has been non oliguric. Has chronic kidney disease with baseline Creatinine 1.3-1.5. Most likely has chronic kidney disease due to Hypertensive or renovascular disease. Now develop KATERIN, possibly due to Rhabdo. or Obstructive uropathy. Develop cardiac arrest and intubated. BP is now stable, Urine out put is adequate. Creatinine is slightly better 1.5. BP was elevated, will follow. Sunita Martin MD Jun 06, 2017 15:13
[2017-06-06 15:42] LABS: VANCOMYCIN TROUGH 15.1 MCG/ML (5.0-10.0)
[2017-06-06] MEDS: VANCOMYCIN INJ 1,500 MG in SODIUM CHLORID 0.9% 500 ML INJ 500 ML IV SCH (16:09)
[2017-06-06] MEDS: PANTOPRAZOLE SODIUM 40 MG VIAL IV PUSH SCH (18:19)
[2017-06-06] MEDS: ATORVASTATIN 40 MG TAB PO SCH (23:02)
[2017-06-07] VITALS (37 sets, daily range): BP systolic 89–162; BP diastolic 51–71; PULSE 84–119; RESP 14–22; TEMP 98.2–100.3; O2SAT 92–100
[2017-06-07] MEDS: MORPHINE SULFATE 2 MG/ML INJ IV PUSH PRN ×2 (02:01→05:46)
[2017-06-07] MEDS: LEVOTHYROXINE SODIUM 25 MCG TAB PO SCH (05:45)
[2017-06-07] MEDS: LEVOTHYROXINE SODIUM 112 MCG TAB PO SCH (05:45)
[2017-06-07] MEDS: FUROSEMIDE 40 MG/4 ML VIAL IV PUSH SCH ×2 (06:48→17:30)
[2017-06-07] MEDS ORDERED: ETOMIDATE 40 MG/20 ML VIAL ONE (07:14)
[2017-06-07] MEDS ORDERED: PROPOFOL 500 MG/50 ML INJ 50 ML ONE (07:15)
--- NOTE | 2017-06-07 07:20 | HHI.FPPN ---
Addendum to progress note ADDENDUM Reason for addendum: Additonal documentation Additional information Residents paged for Rylie at [phone]. Nurses were concerned about respiratory distress. Stated that he became lethargic and was having difficulty breathing with desaturations. Pt was placed on non-rebreather. Per nurse, oxygen saturation was at 50% then went up to 80%. Pt was suctioned and unable to be transferred back to nasal cannula Upon entering room, pt was awake, would make eye contact, but doze off easily. Pulse 145, RR 25, BP 176/70, oxygen sat 98% on nonrebreather Gen: Alert, lethargic CV: Tachycardic. Regular rhythm. No murmurs Resp: Coarse breath sounds throughout. Diminished breath sounds auscultated anteriorly Ext: No edema. Neuro: Alert, unable to respond to questions 67 y/o male with extensive history of MCA, CHF. atrial fibrillation, HTN, DM who now presents with respiratory distress. Pt was recently intubated two days ago and transferred out of ICU yesterday due to return to baseline after extubation. Pt's sputum is positive for MRSA and E. Coli -Stat CXR, ABG -Stat CBC, CMP, troponins -Lasix 40mg IV -Transfer to ICU -Consult domestic travel consultant, will likely need intubation Ángel Pulido MD, R2 Jun 07, 2017 07:20
--- NOTE | 2017-06-07 07:40 | HHI.CCPN ---
Subjective Remarks/Hospital Course Patient is a 67-year-old white male was admitted to the [facility] service on 05/30/17 with acute left MCA stroke with right hemiparesis. He has a past medical history significant for CHF with ejection fraction 25% (echo 06/01), Atrial fibrillation on Xarelto, chronic kidney disease stage III, rhabdomyolysis , Hypertension, Anemia, Hyperlipidemia, Diabetes Mellitus and Hypothyroidism. Apparently patient was in his regular state of health, improving right hemiparesis today am. A code blue was called overhead after the patient was found on the bed unresponsive and pulseless, which I responded immediately. CPR was started. See Code sheet for details-rhythm was pea with A. fib. Patient received 2 amp epinephrine, 1amp of bicarb. CPR continued and after total 5 min there was return of spontaneous circulation. I intubated patient during code, after return of spontaneous circulation. Patient was quickly moved to the ICU where resuscitation was continued with IV fluids boluses. I placed a right femoral arterial line for invasive cardiac/hemodynamic monitoring. As the blood pressure was trending down to low 90s systolic patient was started on Levophed infusion. I also placed a right subclavian central line. Patient remained in atrial fibrillation but blood pressure improved with map consistently above 65 with fluid resuscitation and Levophed infusion. I discussed with patient's guardian, who wants patient to be DNR, but wants to continue aggressive treatment. CT of the head is pending at this time. PE is unlikely as the patient had been on Xarelto for anticoagulation SUBJ 06/05/17: Intubated currently off sedation. Remains encephalopathic, sodium 150. Restart Lasix. Did not tolerate weaning trial due to apnea. Stat echo shows EF 20% 06/06 Reconsult: Rylie was called on floor for resp distress on arrival [place] [facility] [place] was tachycardic, tachypneic and hypoxic with sats 80's on NRB. He was subsequently intubated and placed on mechanical ventilation. Patient was given Lasix 40mg IV. Objective Vital Signs Date Time Temp Pulse Resp B/P (MAP) Pulse Ox O2 Delivery O2 Flow Rate FiO2 06/07/17 05:52 99.9 119 22 162/67 (98) 95 06/07/17 03:42 Nasal Cannula 3.00 06/05/17 15:10 40 Intake and Output 06/07/17 06/07/17 06/08/17 08:00 16:00 00:00 Intake Total 240 ml Output Total 1100 ml Balance -860 ml Result Diagram: 06/06/17 0445 06/06/17 1432 Other Results Laboratory Tests Test 06/06/17 14:32 Potassium Level 3.7 MEQ/L Vancomycin Level Trough 15.1 MCG/ML Imaging Last Impressions Chest X-Ray 06/06/17 0600 Signed Impressions: Service Date/Time: Tuesday, June 06, 2017 03:50 - CONCLUSION: Interval extubation. Stable aeration. Ap Javed MD Abdomen X-Ray 06/05/17 0000 Signed Impressions: Service Date/Time: May 07:39 - CONCLUSION: Normal examination. The nasogastric is within the proximal stomach Desmond Hudson MD Head CT 06/04/17 0000 Signed Impressions: Service Date/Time: May 04:33 - CONCLUSION: 1. No acute intracranial abnormality seen. 2. Mild atrophy. 3. Persistent increased density within the right globe. Ap Quigley MD Head Magnetic Resonance Angiography 05/29/17 0000 Signed Impressions: Service Date/Time: May 18:31 - CONCLUSION: 1. Suboptimal exam degraded by motion as above. No definite occlusive disease. Nilson Jeffries MD Carotid Artery Ultrasound 05/29/17 0000 Signed Impressions: Service Date/Time: May 19:47 - CONCLUSION: Moderate visible plaque in both carotid arteries. Findings suggest at least a moderate stenosis. This would be better evaluated with CTA carotids. Nilson Jeffries MD Brain MRI 05/29/17 0000 Signed Impressions: Service Date/Time: May 18:31 - CONCLUSION: 1. There is increased signal in the posterior left MCA distribution on the diffusion weighted images characteristic of an acute or subacute infarct. Currently no mass shift or evidence for hemorrhage. Nilson Jeffries MD Abdomen/Pelvis CT 05/29/17 0000 Signed Impressions: Service Date/Time: May 18:10 - CONCLUSION: 1. No acute finding on CT abdomen and pelvis. 2. Calcified gallstones. 3. There is a small hiatal hernia. Distended bladder. 4. 2.3 cm lesion lower pole right kidney not clearly a cyst. Recommend renal ultrasound to assess for cyst versus solid mass. Nilson Jeffries MD Objective Remarks GENERAL: Elderly male lethargic, encephalopathic now intubated EYES: legally blind per previous notes ENT: Poor dentition. Dry oral mucosa. Orotracheally intubated CARDIOVASCULAR: Tachycardic,Irregular heart rate. Systolic murmur heard in all areas RESPIRATORY: Bilaterally equal breath sounds, diminished in the bases GASTROINTESTINAL: Protuberant abdomen, tympanic, improved with NG tube decompression MUSCULOSKELETAL: S/p right great toe and fifth toe amputation, Small ulcers on bilateral anterior fleming, Non stageable pressure ulcer on bilateral sole, eschar left lateral foot NEUROLOGICAL: Intubated A/P Assessment and Plan NEURO: Metabolic encephalopathy Possible anoxic injury Status post left MCA stroke 6 days ago - Encephalopathy post code possible anoxic injury - CT of the head stat 06/04 -no acute changes, MRI 05/29 had show L MCA stroke - Diprivan infusion for sedation. Daily sedation vacation when appropriate. RESP: Acute respiratory failure- Reintubated today - Continue with vent support keep sat >92% -Bronchodilators, ICU vent bundle. -Check CXR and ABG post intubation. CV: PEA arrest on 06/04 Cardiogenic shock-resolved Atrial fibrillation on chronic Xarelto Cardiomyopathy with EF 25% - Monitor HR and BP keep MAP>65mmHg - 2D Echo 06/01 with EF 25%. - Decrease IV Lasix 20 mg every 12. - Continue aspirin, Xarelto. Place on Coreg 3.125mg BID. Not on Pk-I due to KATERIN GI: - IV Protonix - Start tube feeds with Glucerna 1.5 with goal rate 45ml/hr : Chronic kidney disease - Monitor renal function, I/O's, electrolytes replacement as needed. -Renal is following- Dr. Martin. -Decrease Lasix 20mg IV BID ID: -Pneumonia ( MRSA, E.coli) Sputum 06/04: MRSA, E.coli - Continue abx per ID ( On Vanco, Rocephin) monitor for signs of infections ( Fever, WBC) HEME: - Monitor CBC, CMP, coags ENDO: Hypothyroidism. - Sliding-scale insulin for glycemic control -Continue Synthroid. TSH: 1.2 PROPH: - Bilateral lower extremity SCDs. Continue Xarelto MSK: - Wound care consulted for bilateral sole pressure ulcer, eschar L lateral feet LINES: - Right subclavian central line placed 06/04/17 Check labs today Level 3 Zak Mondragon MD Jun 07, 2017 07:40
[2017-06-07] MEDS ORDERED: RESP: ALBUTEROL 2.5 MG/IPRATROPIUM 0.5 MG NEB (PRN) NEB (07:45)
--- NOTE | 2017-06-07 07:49 | RADRPT ---
EXAM DATE/TIME: 06/07/2017 07:19 [place] COMPARISON: CHEST SINGLE AP, June 06, 2017, 3:50. INDICATIONS : Status post intubation. MEDICAL HISTORY : Congestive heart failure. Hypothyroidism. Deep vein thrombosis. Myocardial infarction.Dementia. Gastr oesophageal reflux disease. Diabetes mellitus type II. Renal failure. Chronic obstructive pulmonary d isease. Cardiovascular disease.Chronic obstructive pulmonary disease. Diverticulitis. SURGICAL HISTORY : CABG.Bilateral cataract surgery. Amputation of right great toe and little toe. ENCOUNTER: Subsequent ACUITY: 1 day PAIN SCORE: Non-responsive. LOCATION: chest FINDINGS: ET tube in good position. Central line entering from the right into position. The heart is enlarged . Mild interstitial edema is present. Stable bibasilar clinical changes are evident. CONCLUSION: ET tube in good position. Juan Carvalho MD FACR on June 07, 2017 at 7:45 Board Certified Radiologist. This report was verified electronically.
[2017-06-07] MEDS: CHLORHEXIDINE 0.12% (ORAL KIT) 15 ML CUP MT SCH ×2 (08:00→21:03)
[2017-06-07] MEDS: RESP: ALBUTEROL 2.5 MG/IPRATROPIUM 0.5 MG NEB (SCH) NEB ×4 (08:20→19:50)
[2017-06-07 08:53] LABS: AUTOMATED NEUTROPHIL # 11.5 TH/MM3 (1.8-7.7); BASOPHIL # 0.1 TH/MM3 (0-0.2); BASOPHIL % 0.6 % (0.0-2.0); EOSINOPHIL # 0.3 TH/MM3 (0-0.4); HEMOGLOBIN 8.5 GM/DL (13.0-17.0); MEAN CELL VOLUME 82.7 FL (80.0-100.0); MEAN CORPUSCULAR HEMOGLOBIN 26.1 PG (27.0-34.0); MEAN CORPUSCULAR HGB CONC 31.6 % (32.0-36.0); MEAN PLATELET VOLUME 8.6 FL (7.0-11.0); MONO % 6.9 % (0.0-8.0); NEUT % 83.5 % (16.0-70.0); PLATELET COUNT 360 TH/MM3 (150-450); RED BLOOD COUNT 3.27 MIL/MM3 (4.50-5.90); RED CELL DISTRIBUTION WIDTH 19.7 % (11.6-17.2); WHITE BLOOD COUNT 13.8 TH/MM3 (4.0-11.0)
[2017-06-07] MEDS: RIVAROXABAN 15 MG TAB PO SCH (09:00)
[2017-06-07] MEDS: SODIUM CHLORIDE 0.9% FLUSH 10 ML FLUSH IV FLUSH SCH ×2 (09:00→21:01)
[2017-06-07] MEDS: DOCUSATE SODIUM 50 MG/SENNA 8.6 MG TAB PO SCH ×2 (09:00→21:00)
[2017-06-07] MEDS: prednisoLONE ACETATE 1% OPHT SUSP 5 ML BTL RIGHT EYE SCH (09:00)
[2017-06-07] MEDS: CARBAMIDE PEROXIDE 6.5% OTIC SOLN 15 ML BTL EACH EAR SCH (09:00)
[2017-06-07] MEDS: INSULIN ASPART SUPPLEMENTAL SCALE SQ SCH ×3 (09:00→17:40)
[2017-06-07 09:27] LABS: ALBUMIN 1.8 GM/DL (3.4-5.0); BICARBONATE 28.1 MEQ/L (21.0-32.0); CALCIUM 7.4 MG/DL (8.5-10.1); CALCIUM-PROTEIN CORRECTED 8.1 MG/DL (8.5-10.1); CREATININE 1.93 MG/DL (0.60-1.30); MAGNESIUM 1.6 MG/DL (1.5-2.5); PHOSPHORUS 5.8 MG/DL (2.5-4.9); TOTAL BILIRUBIN ADULT 0.3 MG/DL (0.2-1.0); TOTAL PROTEIN 5.9 GM/DL (6.4-8.2); TROPONIN I 0.19 NG/ML (0.02-0.05)
[2017-06-07 09:53] LABS: BANDS 7 % (0-6); BLASTS 1 % (0-0); LYMPHOCYTES 7 % (9-44); MONOCYTES 8 % (0-8); MYELOCYTES 1 % (0-0); NEUTROPHIL # MANUAL DIFF 11.6 TH/MM3 (1.8-7.7); POLYS (SEG NEUTROPHILS) 76 % (16-70)
[2017-06-07] MEDS: PROPOFOL 1000 MG/100 ML INJ 100 ML IV PRN ×2 (10:15→17:34)
--- NOTE | 2017-06-07 11:19 | HHI.NPPN ---
Subjective General Problems: Anemia, Edema, Hypertension Renal Failure: Chronic, Acute, Stage III History of Present Illness 67-year-old male with a past medical history of ischemic heart disease, congestive heart failure, chronic kidney disease, atrial fibrillation, chronic anemia, diabetes mellitus, hypothyroidism, and peripheral vascular disease who was admitted with a complaint of worsening shortness of breath. I was called to see the patient because of elevated BUN and creatinine. The patient has known history of chronic kidney disease and his baseline creatinine seems to be in the range of 1.3-1.5 most of the time. Additional Remarks Patient is again intubated and now on sedation. Objective Data Data Vital Signs Date Time Temp Pulse Resp B/P (MAP) Pulse Ox O2 Delivery O2 Flow Rate FiO2 06/07/17 07:30 100 60 06/07/17 06:25 100 15.00 100 06/07/17 05:52 99.9 119 22 162/67 (98) 95 06/07/17 04:00 112 06/07/17 03:42 92 Nasal Cannula 3.00 06/07/17 00:00 100.2 111 22 155/71 (99) 96 06/07/17 00:00 115 06/06/17 22:27 116 06/06/17 20:00 98 Nasal Cannula 4.00 06/06/17 20:00 101.8 112 18 159/72 (101) 98 06/06/17 15:50 98.4 105 20 148/98 (115) 98 06/06/17 12:00 99.0 102 24 173/70 (104) 96 -: 06/07/17 0730 06/07/17 0730 Physical Exam General Appearance Remarks Intubated and sedated. Eyes Eye Exam: Pupils Equal Throat Throat Exam: Oral Mucosa [place] & Moist Neck Neck Exam: Neck Supple Pulmonary Resp Exam: Breath Sounds Equal, No Distress, Rhonchi, Decreased Bases Cardiology CV Exam: Regular, Normal Sinus Rhythm Gastrointestinal/Abdomen GI Exam: Soft, Non-Tender, Bowel Sounds Present Extremeties Extremities Exam: Trace Edema (Bilateral scalling and dryness of skin, in lower leg.) Neurologic Neuro Exam: Sedated Assessment/Plan Assessment Summary: KATERIN/Acute Renal Failure, Hypertension, CKD Stage III Problem List: (1) Acute kidney injury ICD Codes: N17.9 - Acute kidney failure, unspecified (2) Altered mental status ICD Codes: R41.82 - Altered mental status Status: Acute (3) Hx of deep venous thrombosis ICD Codes: Z86.718 - History of deep venous thrombosis Status: Chronic (4) CHF (congestive heart failure) ICD Codes: I50.9 - Congestive heart failure Status: Resolved (5) Diabetes ICD Codes: E11.9 - Diabetes Status: Chronic (6) Hypothyroidism ICD Codes: E03.9 - Hypothyroidism, unspecified Status: Chronic (7) Hypertension ICD Codes: I10 - Hypertension Status: Chronic (8) Chronic kidney disease, stage 3 ICD Codes: N18.3 - Chronic kidney disease, stage 3 (moderate) (9) Rhabdomyolysis ICD Codes: M62.82 - Rhabdomyolysis Plan Patient has been non oliguric. Has chronic kidney disease with baseline Creatinine 1.3-1.5. Most likely has chronic kidney disease due to Hypertensive or renovascular disease. Now develop KATERIN, possibly due to Rhabdo. or Obstructive uropathy. Develop cardiac arrest and intubated. BP is now stable, Urine out put is adequate. Creatinine is slightly increased. Develop Lethargy and resp. failure. Now also on Lasix, follow the urine out put and BMP. Sunita Martin MD Jun 07, 2017 11:19
[2017-06-07] MEDS: CARVEDILOL 3.125 MG TAB PO SCH ×2 (12:13→21:35)
[2017-06-07] MEDS: ASPIRIN 325 MG TAB PO SCH (12:13)
--- NOTE | 2017-06-07 13:42 | HHI.FPPN ---
Subjective Remarks Patient seen and examined this morning. Following a Halicat earlier in the morning the patient has been intubated and sedated. Momentarily awake during interview. Nurse reports no acute events since admission to ICU. Objective Vitals Vital Signs Date Time Temp Pulse Resp B/P (MAP) Pulse Ox O2 Delivery O2 Flow Rate FiO2 06/07/17 11:16 100 50 06/07/17 10:00 99 06/07/17 08:00 100.2 112 19 89/54 (66) 99 06/07/17 07:30 100 60 06/07/17 06:25 100 15.00 100 06/07/17 05:52 99.9 119 22 162/67 (98) 95 06/07/17 04:00 112 06/07/17 03:42 92 Nasal Cannula 3.00 06/07/17 00:00 100.2 111 22 155/71 (99) 96 06/07/17 00:00 115 06/06/17 22:27 116 06/06/17 20:00 98 Nasal Cannula 4.00 06/06/17 20:00 101.8 112 18 159/72 (101) 98 06/06/17 15:50 98.4 105 20 148/98 (115) 98 I/O 06/06/17 06/06/17 06/06/17 06/07/17 06/07/17 06/07/17 07:00 15:00 23:00 07:00 15:00 23:00 Intake Total 1500 ml 448 ml 515 ml 240 ml Output Total 700 ml 950 ml 825 ml 1100 ml Balance 800 ml -502 ml -310 ml -860 ml Intake Oral 1400 ml 240 ml IV Total 100 ml 448 ml 515 ml Output Urine Total 700 ml 950 ml 825 ml 1100 ml # Bowel Movements 1 1 0 Result Diagram: 06/07/1772906/07/1730 Objective Remarks GENERAL: elderly man, intubated, laying in bed, sedated SKIN: scaling and dryness of right and left leg EYES: legally blind, yellow crusting of both eyes ENT: dental caries, dry crusting of lips CARDIOVASCULAR: Regular rate and rhythm RESPIRATORY: decreased breath sounds in b/l bases. Coarse breath sounds throughout. Currently intubated, on A/C GASTROINTESTINAL: protuberant abdomen, BS+ MUSCULOSKELETAL: contractures of right and left hand, right great toe and fifth toe amputation, skin is erythematous, dry, several ulcers on lower extremities, covered in clean dry intact dressings NEUROLOGICAL: Intubated, sedated. Momentarily awake, could follow commands at that time. A/P Assessment and Plan 67 year old male with CHF (EF 35%), HTN, CKD stage 3, CAD s/p 3 vessel CABG, Afib on xarelto, HTN, HLD, DM admitted for acute infarct of posterior left MCA. Currently on empiric antibiotics due to meeting sepsis criteria. Discharge Planning Unclear timetable at this time PT- return to SNF at [facility]- patient will require speech therapy after discharge OT- OT at rehab, [facility] Problem List: (1) Pneumonia ICD Codes: J18.9 - Pneumonia Status: Acute Plan: Sputum culture grew MRSA and E. Coli. Possibly aspiration pneumonia Pt on Vancomycin, Flagyl, Cipro ID consulted-appreciate recs. (2) Mechanically assisted ventilation ICD Codes: Z99.11 - Mechanically assisted ventilation Status: Resolved Plan: Extubated 06/05, status post cardiac arrest and return of spontaneous circulation on 06/04. Reintubated 06/07 for respiratory distress. Transferred to ICU [employer] consulted-appreciate recs (3) Ischemic stroke ICD Codes: I63.9 - Cerebral infarction, unspecified Plan: Patient presents with aphasia and left-sided weakness and mild right- sided weakness upon arrival to ED. Difficult to establish time of onset,patient most likely outside of window for TPA. Brain MRI demonstrated increased signal in the posterior left MCA distribution on the diffusion of weighted images characteristic of an acute or subacute infarct. Currently no mass shift or evidence hemorrhage. Carotid US: moderate visble plaque in both carotid arteries, findings suggest at least a moderate stenosis. possible significant carotid disease, though not a good candidate for further imaging of the carotids at this point Neurology consulted, recs appreciated. -Continue aspirin 325 mg PO daily -Continue Xarelto 20mg PO daily -Physical therapy (4) Sepsis ICD Codes: A41.9 - Sepsis Status: Acute Plan: Afebrile last night. No leukocytosis. UA/blood cx negative CXR shows bibasilar opacities ID consulted-appreciate recs Continue Vancomycin 1500 mg IV, pharmacy consulted for renal dosage, appreciate recs Continue Cipro 400mg IV q18h Continue Flagly 500mg IV q8h (5) Congestive heart failure ICD Codes: I50.9 - Heart failure, unspecified Status: Chronic Plan: Echo form 03/14/17 demonstrated 35% ejection fraction CXR 06/01 revealed cardiomegaly and stable compared to CXR 05/22/17, which revealed slight blunting of the left costophrenic sulcus suggesting a small left pleural effusion CXR 06/01 demonstrated moderate pulmonary vascular congestion Echo 06/01: mildly dilated LV, EF 25%, mild to moderate aortic sclerosis -Home Lasix 40mg PO BID (6) Chronic kidney disease, stage 3 ICD Codes: N18.3 - Chronic kidney disease, stage 3 (moderate) Plan: Baseline Cr. 1.3-1.5; Stable around 1.4-1.6 -Continue to monitor -Nephrology consulted, recs appreciated -Avoid nephrotoxins -Follow I/O (7) Rhabdomyolysis ICD Codes: M62.82 - Rhabdomyolysis Plan: Elevated creatine kinase 2533 most likely due to tremors, decreased to 1397 Improving NS 125mls/hr Continue to monitor Nephrology consulted, appreciate recs (8) Atrial fibrillation ICD Codes: I48.91 - Atrial fibrillation Status: Chronic Plan: -Xarelto 20mg PO daily (9) Hypertension ICD Codes: I10 - Hypertension Status: Chronic Plan: -Continue home meds: Coreg 6.25 mg PO q12 Losartan 50mg PO daily (10) Neurogenic bladder ICD Codes: N31.9 - Neuromuscular dysfunction of bladder, unspecified Plan: Neurogenic bladder due to stroke -Conde catheter placed (11) Hyperlipidemia ICD Codes: E78.5 - Hyperlipidemia Status: Chronic Plan: -Continue Atorvastatin 40mg PO HS (12) Hypothyroidism ICD Codes: E03.9 - Hypothyroidism, unspecified Status: Chronic Plan: -Continue Levothyroxine 112mcg PO daily (13) Diabetes ICD Codes: E11.9 - Diabetes Status: Chronic Plan: -Low dose SS -Held home insulin (14) Nutrition, metabolism, and development symptoms ICD Codes: R63.8 - Other symptoms and signs concerning food and fluid intake Status: Acute Plan: Fluids: none due to CHF Diet: soft mechanical diet Electrolytes: monitor and replace as needed Problem Qualifiers (1) Pneumonia: Qualified Codes: J15.212 - Pneumonia due to methicillin resistant Staphylococcus aureus (2) Congestive heart failure: Qualified Codes: I50.9 - Heart failure, unspecified (3) Atrial fibrillation: Qualified Codes: I48.2 - Chronic atrial fibrillation Jermaine Bell MD R1 Jun 07, 2017 13:42
[2017-06-07] MEDS: cefTRIAXone INJ 2,000 MG in SODIUM CHLORIDE 0.9% INJ 100 ML IV SCH (15:09)
[2017-06-07] MEDS: VANCOMYCIN INJ 1,500 MG in SODIUM CHLORID 0.9% 500 ML INJ 500 ML IV SCH (17:30)
[2017-06-07] MEDS: PANTOPRAZOLE SODIUM 40 MG VIAL IV PUSH SCH (17:30)
--- NOTE | 2017-06-07 18:52 | HHI.IDPN ---
Subjective Subjective Remarks events noted pt was transferred to ICU yday after he developped resp distress Pt was intubated, placed on vent He had some fever up to 101.8 Some increase in leukocytosis up to 13 K Antibiotics vanco CFTX Allergies: Coded Allergies: Iodinated Contrast- Oral and IV Dye (Verified Allergy, Severe, Anaphylaxis , 05/29/17) acetaminophen (Unverified Allergy, Severe, "LIVER PROBLEMS", 05/29/17) diatrizoate meglumine (Unverified Allergy, Severe, Anaphylaxis, 05/29/17) gadobenic acid (Unverified Allergy, Severe, Anaphylaxis, 05/29/17) gadodiamide (Unverified Allergy, Severe, Anaphylaxis, 05/29/17) gadoteridol (Unverified Allergy, Severe, Anaphylaxis, 05/29/17) iodixanol (Unverified Allergy, Severe, Anaphylaxis, 05/29/17) iohexol (Unverified Allergy, Severe, Anaphylaxis, 05/29/17) penicillin G (Unverified Allergy, Severe, "HOT THROAT", 05/29/17) Uncoded Allergies: RADIOISOTOPES (Allergy, Severe, 09/27/13) UNKONWN RXN, LISTED ON PATIENT PAPERWORK FROM [facility]. Objective . Vital Signs Date Time Temp Pulse Resp B/P (MAP) Pulse Ox O2 Delivery O2 Flow Rate FiO2 06/07/17 18:00 91 06/07/17 16:45 90 06/07/17 16:45 90 15 106/58 (74) 98 06/07/17 16:30 94 15 109/55 (73) 97 06/07/17 16:30 94 06/07/17 16:15 95 16 105/56 (72) 98 06/07/17 16:15 95 06/07/17 16:00 98.2 94 16 104/51 (68) 97 06/07/17 16:00 94 06/07/17 15:31 97 06/07/17 15:15 102 06/07/17 15:02 98 40 06/07/17 15:00 100 06/07/17 14:46 102 06/07/17 14:30 95 06/07/17 14:15 97 06/07/17 14:01 98 06/07/17 14:01 98 16 112/55 (74) 100 06/07/17 14:00 94 06/07/17 14:00 94 15 100 06/07/17 13:45 95 06/07/17 13:45 95 16 97/54 (68) 100 06/07/17 13:30 96 06/07/17 13:30 96 14 102/52 (69) 100 06/07/17 13:15 95 06/07/17 13:15 95 16 104/58 (73) 99 06/07/17 13:00 95 06/07/17 13:00 95 14 105/57 (73) 99 06/07/17 12:45 97 15 105/54 (71) 99 06/07/17 12:45 97 06/07/17 12:31 98 14 108/55 (72) 99 06/07/17 12:31 98 06/07/17 12:15 101 20 125/51 (75) 99 06/07/17 12:15 101 06/07/17 12:01 102 20 122/58 (79) 98 06/07/17 12:01 102 06/07/17 12:00 102 06/07/17 12:00 102 17 98 06/07/17 11:16 100 50 06/07/17 10:00 99 06/07/17 08:00 100.2 112 19 89/54 (66) 99 06/07/17 07:30 100 60 06/07/17 06:25 100 15.00 100 06/07/17 05:52 99.9 119 22 162/67 (98) 95 06/07/17 04:00 112 06/07/17 03:42 92 Nasal Cannula 3.00 06/07/17 00:00 100.2 111 22 155/71 (99) 96 06/07/17 00:00 115 06/06/17 22:27 116 06/06/17 20:00 98 Nasal Cannula 4.00 06/06/17 20:00 101.8 112 18 159/72 (101) 98 06/07/17 06/07/17 06/08/17 15:00 23:00 07:00 Intake Total 423 ml Output Total 450 ml Balance -27 ml IV Total 100 ml Tube Feeding 203 ml Other 120 ml Output Urine Total 450 ml # Bowel Movements 0 . Laboratory Tests Test 06/06/17 04:45 06/07/17 07:30 White Blood Count 10.8 TH/MM3 13.8 TH/MM3 Red Blood Count 3.30 MIL/MM3 3.27 MIL/MM3 Hemoglobin 8.9 GM/DL 8.5 GM/DL Hematocrit 27.0 % 27.0 % Mean Corpuscular Volume 81.7 FL 82.7 FL Mean Corpuscular Hemoglobin 26.9 PG 26.1 PG Mean Corpuscular Hemoglobin Concent 32.9 % 31.6 % Red Cell Distribution Width 19.5 % 19.7 % Platelet Count 243 TH/MM3 360 TH/MM3 Mean Platelet Volume 8.0 FL 8.6 FL Neutrophils (%) (Auto) 79.5 % 83.5 % Lymphocytes (%) (Auto) 7.5 % 7.0 % Monocytes (%) (Auto) 8.6 % 6.9 % Eosinophils (%) (Auto) 3.6 % 2.0 % Basophils (%) (Auto) 0.8 % 0.6 % Neutrophils # (Auto) 8.6 TH/MM3 11.5 TH/MM3 Lymphocytes # (Auto) 0.8 TH/MM3 1.0 TH/MM3 Monocytes # (Auto) 0.9 TH/MM3 1.0 TH/MM3 Eosinophils # (Auto) 0.4 TH/MM3 0.3 TH/MM3 Basophils # (Auto) 0.1 TH/MM3 0.1 TH/MM3 CBC Comment DIFF FINAL AUTO DIFF Differential Comment FINAL DIFF MANUAL Differential Total Cells Counted 100 Neutrophils % (Manual) 76 % Band Neutrophils % 7 % Lymphocytes % 7 % Monocytes % 8 % Neutrophils # (Manual) 11.6 TH/MM3 Myelocytes 1 % Blastocytes 1 % Platelet Estimate NORMAL Platelet Morphology Comment NORMAL Red Cell Morphology Comment NORMAL Laboratory Tests Test 06/06/17 04:45 06/06/17 14:32 06/07/17 07:30 Blood Urea Nitrogen 27 MG/DL 23 MG/DL Creatinine 1.57 MG/DL 1.93 MG/DL Random Glucose 99 MG/DL 178 MG/DL Total Protein 5.5 GM/DL 5.9 GM/DL Albumin 1.7 GM/DL 1.8 GM/DL Calcium Level 7.4 MG/DL 7.4 MG/DL Magnesium Level 1.5 MG/DL 1.6 MG/DL Alkaline Phosphatase 86 U/L 108 U/L Aspartate Amino Transf (AST/SGOT) 43 U/L 35 U/L Alanine Aminotransferase (ALT/SGPT) 45 U/L 40 U/L Total Bilirubin 0.3 MG/DL 0.3 MG/DL Sodium Level 149 MEQ/L 146 MEQ/L Potassium Level 3.4 MEQ/L 3.7 MEQ/L 3.8 MEQ/L Chloride Level 112 MEQ/L 110 MEQ/L Carbon Dioxide Level 28.6 MEQ/L 28.1 MEQ/L Anion Gap 8 MEQ/L 8 MEQ/L Estimat Glomerular Filtration Rate 44 ML/MIN 35 ML/MIN Protein Corrected Calcium 8.3 MG/DL 8.1 MG/DL Phosphorus Level 5.8 MG/DL Troponin I 0.19 NG/ML Microbiology Date/Time Source Procedure Growth Status 06/05/17 00:42 Blood Peripheral Aerobic Blood Culture - Preliminary NO GROWTH IN 2 DAYS Resulted 06/05/17 00:42 Blood Peripheral Anaerobic Blood Culture - Preliminary NO GROWTH IN 2 DAYS Resulted 06/07/17 11:30 Sputum Expectorated Sputum Gram Stain Pending Received 06/07/17 11:30 Sputum Expectorated Sputum Sputum Culture Pending Received Imaging Last Impressions Chest X-Ray 06/06/17 0600 Signed Impressions: Service Date/Time: Tuesday, June 06, 2017 03:50 - CONCLUSION: Interval extubation. Stable aeration. Ap Javed MD Abdomen X-Ray 06/05/17 0000 Signed Impressions: Service Date/Time: May 07:39 - CONCLUSION: Normal examination. The nasogastric is within the proximal stomach Desmond Hudson MD Head CT 06/04/17 0000 Signed Impressions: Service Date/Time: May 04:33 - CONCLUSION: 1. No acute intracranial abnormality seen. 2. Mild atrophy. 3. Persistent increased density within the right globe. Ap Quigley MD Head Magnetic Resonance Angiography 05/29/17 0000 Signed Impressions: Service Date/Time: May 18:31 - CONCLUSION: 1. Suboptimal exam degraded by motion as above. No definite occlusive disease. Nilson Jeffries MD Carotid Artery Ultrasound 05/29/17 0000 Signed Impressions: Service Date/Time: May 19:47 - CONCLUSION: Moderate visible plaque in both carotid arteries. Findings suggest at least a moderate stenosis. This would be better evaluated with CTA carotids. Nilson Jeffries MD Brain MRI 05/29/17 0000 Signed Impressions: Service Date/Time: May 18:31 - CONCLUSION: 1. There is increased signal in the posterior left MCA distribution on the diffusion weighted images characteristic of an acute or subacute infarct. Currently no mass shift or evidence for hemorrhage. Nilson Jeffries MD Abdomen/Pelvis CT 05/29/17 0000 Signed Impressions: Service Date/Time: May 18:10 - CONCLUSION: 1. No acute finding on CT abdomen and pelvis. 2. Calcified gallstones. 3. There is a small hiatal hernia. Distended bladder. 4. 2.3 cm lesion lower pole right kidney not clearly a cyst. Recommend renal ultrasound to assess for cyst versus solid mass. Nilson Jeffries MD Physical Exam CONSTITUTIONAL/GENERAL: This is an adequately nourished patient, in no apparent distress. intubated, on vent TUBES/LINES/DRAINS: R SCV TLC SKIN: No jaundice, rashes, or lesions. Skin temperature appropriate. Not diaphoretic. CARDIOVASCULAR: Regular rate and rhythm without murmurs, gallops, or rubs. No JVD. Peripheral pulses symmetric. RESPIRATORY/CHEST: Symmetric, unlabored respirations. Clear to auscultation. Breath sounds equal bilaterally. No wheezes, rales, or rhonchi. GASTROINTESTINAL: Abdomen soft, non-tender, nondistended. No hepato-splenomegaly , or palpable masses. No guarding. Bowel sounds present. GENITOURINARY: Without palpable bladder distension. Conde catheter in place with clear urine MUSCULOSKELETAL: Extremities without clubbing, cyanosis, BLE with tree bark changes BNo edema No joint tenderness or effusion noted. No calf tenderness. No mottling or clubbing. NEUROLOGICAL: sedated. Unresponsivve PSYCHIATRIC: unable to assess Assessment & Plan Remarks sp PEA sp stroke Fever, ? B/b PNA Pt having fever since admission New acute VDRF will change abx to vanco, cefepime fu sputum clx dw Traci Hoff MD Jun 07, 2017 18:52
[2017-06-07] MEDS: ATORVASTATIN 40 MG TAB PO SCH (21:01)
[2017-06-07] MEDS: CEFEPIME INJ 2,000 MG in SODIUM CHLORIDE 0.9% INJ 100 ML IV SCH (21:01)
[2017-06-08] VITALS (31 sets, daily range): BP systolic 100–162; BP diastolic 53–94; PULSE 78–95; RESP 14–22; TEMP 98.8–100.1; O2SAT 92–100
[2017-06-08] MEDS: RESP: ALBUTEROL 2.5 MG/IPRATROPIUM 0.5 MG NEB (SCH) NEB ×7 (00:46→23:43)
[2017-06-08] MEDS: prednisoLONE ACETATE 1% OPHT SUSP 5 ML BTL RIGHT EYE SCH ×3 (00:57→19:58)
[2017-06-08] MEDS: PROPOFOL 1000 MG/100 ML INJ 100 ML IV PRN ×3 (00:58→18:01)
[2017-06-08 05:10] LABS: AUTOMATED NEUTROPHIL # 10.7 TH/MM3 (1.8-7.7); BASOPHIL % 0.4 % (0.0-2.0); EOSINOPHIL # 0.3 TH/MM3 (0-0.4); EOSINOPHIL % 2.2 % (0.0-4.0); HEMATOCRIT 24.4 % (39.0-51.0); HEMOGLOBIN 7.6 GM/DL (13.0-17.0); LYMPH % 6.4 % (9.0-44.0); LYMPHOCYTE # 0.8 TH/MM3 (1.0-4.8); MEAN CELL VOLUME 82.3 FL (80.0-100.0); MEAN CORPUSCULAR HEMOGLOBIN 25.7 PG (27.0-34.0); MEAN CORPUSCULAR HGB CONC 31.2 % (32.0-36.0); MONO % 8.5 % (0.0-8.0); MONOCYTE # 1.1 TH/MM3 (0-0.9); NEUT % 82.5 % (16.0-70.0); PLATELET COUNT 334 TH/MM3 (150-450); RED BLOOD COUNT 2.97 MIL/MM3 (4.50-5.90); RED CELL DISTRIBUTION WIDTH 18.9 % (11.6-17.2)
[2017-06-08 05:34] LABS: ALBUMIN 1.6 GM/DL (3.4-5.0); BICARBONATE 29.2 MEQ/L (21.0-32.0); CALCIUM 7.4 MG/DL (8.5-10.1); CREATININE 1.55 MG/DL (0.60-1.30)
[2017-06-08 05:37] LABS: CALCIUM-PROTEIN CORRECTED 8.3 MG/DL (8.5-10.1); TOTAL BILIRUBIN ADULT 0.3 MG/DL (0.2-1.0); TOTAL PROTEIN 5.4 GM/DL (6.4-8.2)
[2017-06-08] MEDS: INSULIN ASPART SUPPLEMENTAL SCALE SQ SCH ×4 (06:00→17:34)
[2017-06-08] MEDS: LEVOTHYROXINE SODIUM 112 MCG TAB PO SCH (06:11)
[2017-06-08] MEDS: LEVOTHYROXINE SODIUM 25 MCG TAB PO SCH (06:11)
[2017-06-08] MEDS: CHLORHEXIDINE 0.12% (ORAL KIT) 15 ML CUP MT SCH ×2 (08:00→20:00)
[2017-06-08] MEDS: CARVEDILOL 3.125 MG TAB PO SCH ×2 (08:42→21:00)
[2017-06-08] MEDS: RIVAROXABAN 15 MG TAB PO SCH (08:43)
[2017-06-08] MEDS: DOCUSATE SODIUM 50 MG/SENNA 8.6 MG TAB PO SCH ×2 (08:43→19:58)
[2017-06-08] MEDS: SODIUM CHLORIDE 0.9% FLUSH 10 ML FLUSH IV FLUSH SCH ×2 (08:43→19:58)
[2017-06-08] MEDS: CEFEPIME INJ 2,000 MG in SODIUM CHLORIDE 0.9% INJ 100 ML IV SCH ×2 (08:43→19:58)
[2017-06-08] MEDS: ASPIRIN 325 MG TAB PO SCH (08:43)
[2017-06-08] MEDS: CARBAMIDE PEROXIDE 6.5% OTIC SOLN 15 ML BTL EACH EAR SCH (08:44)
[2017-06-08] MEDS: FUROSEMIDE 40 MG/4 ML VIAL IV PUSH SCH ×2 (08:44→17:35)
--- NOTE | 2017-06-08 09:41 | HHI.CCPN ---
Subjective Remarks/Hospital Course Patient is a 67-year-old white male was admitted to the [facility] on 05/30/17 with acute left MCA stroke with right hemiparesis. He has a past medical history significant for CHF with ejection fraction 25% (echo 06/01), Atrial fibrillation on Xarelto, chronic kidney disease stage III, rhabdomyolysis , Hypertension, Anemia, Hyperlipidemia, Diabetes Mellitus and Hypothyroidism. Apparently patient was in his regular state of health, improving right hemiparesis today am. A code blue was called overhead after the patient was found on the bed unresponsive and pulseless, which I responded immediately. CPR was started. See Code sheet for details-rhythm was pea with A. fib. Patient received 2 amp epinephrine, 1amp of bicarb. CPR continued and after total 5 min there was return of spontaneous circulation. I intubated patient during code, after return of spontaneous circulation. Patient was quickly moved to the ICU where resuscitation was continued with IV fluids boluses. I placed a right femoral arterial line for invasive cardiac/hemodynamic monitoring. As the blood pressure was trending down to low 90s systolic patient was started on Levophed infusion. I also placed a right subclavian central line. Patient remained in atrial fibrillation but blood pressure improved with map consistently above 65 with fluid resuscitation and Levophed infusion. I discussed with patient's guardian, who wants patient to be DNR, but wants to continue aggressive treatment. CT of the head is pending at this time. PE is unlikely as the patient had been on Xarelto for anticoagulation SUBJ 06/05/17: Intubated currently off sedation. Remains encephalopathic, sodium 150. Restart Lasix. Did not tolerate weaning trial due to apnea. Stat echo shows EF 20% 06/06 Reconsult: Rylie was called on floor for resp distress on arrival to [facility] patient was tachycardic, tachypneic and hypoxic with sats 80's on NRB. He was subsequently intubated and placed on mechanical ventilation. Patient was given Lasix 40mg IV. 06/08 Patient remains sedated and intubated. Afebrile. Renal function is improving with Cr: 1.55 today from 1.93 Objective Vital Signs Date Time Temp Pulse Resp B/P (MAP) Pulse Ox O2 Delivery O2 Flow Rate FiO2 06/08/17 08:00 81 06/08/17 08:00 99.6 14 118/56 (76) 100 06/08/17 07:24 40 06/07/17 06:25 15.00 06/07/17 03:42 Nasal Cannula Intake and Output 06/08/17 06/08/17 06/09/17 08:00 16:00 00:00 Intake Total 550 ml Output Total 450 ml Balance 100 ml Result Diagram: 06/08/17 0436 06/08/17 0436 Other Results Laboratory Tests Test 06/07/17 23:30 06/08/17 04:36 Nasal Screen MRSA (PCR) MRSA DETECTED White Blood Count 13.0 TH/MM3 Red Blood Count 2.97 MIL/MM3 Hemoglobin 7.6 GM/DL Hematocrit 24.4 % Mean Corpuscular Volume 82.3 FL Mean Corpuscular Hemoglobin 25.7 PG Mean Corpuscular Hemoglobin Concent 31.2 % Red Cell Distribution Width 18.9 % Platelet Count 334 TH/MM3 Mean Platelet Volume 8.0 FL Neutrophils (%) (Auto) 82.5 % Lymphocytes (%) (Auto) 6.4 % Monocytes (%) (Auto) 8.5 % Eosinophils (%) (Auto) 2.2 % Basophils (%) (Auto) 0.4 % Neutrophils # (Auto) 10.7 TH/MM3 Lymphocytes # (Auto) 0.8 TH/MM3 Monocytes # (Auto) 1.1 TH/MM3 Eosinophils # (Auto) 0.3 TH/MM3 Basophils # (Auto) 0.0 TH/MM3 CBC Comment DIFF FINAL Differential Comment Blood Urea Nitrogen 28 MG/DL Creatinine 1.55 MG/DL Random Glucose 160 MG/DL Total Protein 5.4 GM/DL Albumin 1.6 GM/DL Calcium Level 7.4 MG/DL Alkaline Phosphatase 91 U/L Aspartate Amino Transf (AST/SGOT) 30 U/L Alanine Aminotransferase (ALT/SGPT) 27 U/L Total Bilirubin 0.3 MG/DL Sodium Level 148 MEQ/L Potassium Level 3.8 MEQ/L Chloride Level 112 MEQ/L Carbon Dioxide Level 29.2 MEQ/L Anion Gap 7 MEQ/L Estimat Glomerular Filtration Rate 45 ML/MIN Protein Corrected Calcium 8.3 MG/DL Imaging Last Impressions Chest X-Ray 06/07/17 0000 Signed Impressions: Service Date/Time: Wednesday, June 07, 2017 07:19 - CONCLUSION: ET tube in good position. Juan Carvalho MD FACR Abdomen X-Ray 06/05/17 0000 Signed Impressions: Service Date/Time: May 07:39 - CONCLUSION: Normal examination. The nasogastric is within the proximal stomach Desmond Hudson MD Head CT 06/04/17 0000 Signed Impressions: Service Date/Time: May 04:33 - CONCLUSION: 1. No acute intracranial abnormality seen. 2. Mild atrophy. 3. Persistent increased density within the right globe. Ap Quigley MD Head Magnetic Resonance Angiography 05/29/17 0000 Signed Impressions: Service Date/Time: May 18:31 - CONCLUSION: 1. Suboptimal exam degraded by motion as above. No definite occlusive disease. Nilson Jeffries MD Carotid Artery Ultrasound 05/29/17 0000 Signed Impressions: Service Date/Time: May 19:47 - CONCLUSION: Moderate visible plaque in both carotid arteries. Findings suggest at least a moderate stenosis. This would be better evaluated with CTA carotids. Nilson Jeffries MD Brain MRI 05/29/17 0000 Signed Impressions: Service Date/Time: May 18:31 - CONCLUSION: 1. There is increased signal in the posterior left MCA distribution on the diffusion weighted images characteristic of an acute or subacute infarct. Currently no mass shift or evidence for hemorrhage. Nilson Jeffries MD Abdomen/Pelvis CT 05/29/17 0000 Signed Impressions: Service Date/Time: May 18:10 - CONCLUSION: 1. No acute finding on CT abdomen and pelvis. 2. Calcified gallstones. 3. There is a small hiatal hernia. Distended bladder. 4. 2.3 cm lesion lower pole right kidney not clearly a cyst. Recommend renal ultrasound to assess for cyst versus solid mass. Nilson Jeffries MD Objective Remarks GENERAL: Elderly male lethargic, encephalopathic now intubated EYES: legally blind per previous notes ENT: Poor dentition. Dry oral mucosa. Orotracheally intubated CARDIOVASCULAR: Tachycardic,Irregular heart rate. Systolic murmur heard in all areas RESPIRATORY: Bilaterally equal breath sounds, diminished in the bases GASTROINTESTINAL: Protuberant abdomen, tympanic, improved with NG tube decompression MUSCULOSKELETAL: S/p right great toe and fifth toe amputation, Small ulcers on bilateral anterior fleming, Non stageable pressure ulcer on bilateral sole, eschar left lateral foot NEUROLOGICAL: Intubated A/P Assessment and Plan NEURO: Metabolic encephalopathy Possible anoxic injury Status post left MCA stroke 6 days ago - Encephalopathy post code possible anoxic injury - CT of the head stat 06/04 -no acute changes, MRI 05/29 had show L MCA stroke - Diprivan infusion for sedation. Daily sedation vacation. RESP: Acute respiratory failure- Reintubated today - Continue with vent support keep sat >92% -Bronchodilators, ICU vent bundle. -Start SBT daily as farzad. CV: PEA arrest on 06/04 Cardiogenic shock-resolved Atrial fibrillation on chronic Xarelto Cardiomyopathy with EF 25% - Monitor HR and BP keep MAP>65mmHg - 2D Echo 06/01 with EF 25%. - IV Lasix 20 mg Q12 - Continue aspirin, Xarelto, Coreg 3.125mg BID. Not on Pk-I due to KATERIN GI: - IV Protonix - On tube feeds with Glucerna 1.5 with goal rate 45ml/hr : Chronic kidney disease - Monitor renal function, I/O's, electrolytes replacement as needed. -Renal is following- Dr. Martin. - Lasix 20mg IV BID -Place on Free water 250ml Q8 monitor sodium level. ID: -Pneumonia ( MRSA, E.coli) Sputum 06/04: MRSA, E.coli - Continue abx per ID ( On Vanco, Cefepime) monitor for signs of infections ( Fever, WBC) Follow up on sputum and blood culture HEME: - Monitor CBC, ENDO: Hypothyroidism. - Sliding-scale insulin for glycemic control -Continue Synthroid. TSH: 1.2 PROPH: - Bilateral lower extremity SCDs. Continue Xarelto MSK: - Wound care consulted for bilateral sole pressure ulcer, eschar L lateral feet LINES: - Right subclavian central line placed 06/04/17 Level 3 Zak Mondragon MD Jun 08, 2017 09:41
[2017-06-08] MEDS: FREE WATER G-TUBE SCH ×3 (09:45→19:59)
--- NOTE | 2017-06-08 10:44 | HHI.NPPN ---
Subjective General Problems: Anemia, Edema, Hypertension Renal Failure: Chronic, Acute, Stage III History of Present Illness 67-year-old male with a past medical history of ischemic heart disease, congestive heart failure, chronic kidney disease, atrial fibrillation, chronic anemia, diabetes mellitus, hypothyroidism, and peripheral vascular disease who was admitted with a complaint of worsening shortness of breath. I was called to see the patient because of elevated BUN and creatinine. The patient has known history of chronic kidney disease and his baseline creatinine seems to be in the range of 1.3-1.5 most of the time. Additional Remarks Patient remain intubated and sedated, open eyes spontaneously. Objective Data Data Vital Signs Date Time Temp Pulse Resp B/P (MAP) Pulse Ox O2 Delivery O2 Flow Rate FiO2 06/08/17 08:00 81 06/08/17 08:00 99.6 81 14 118/56 (76) 100 06/08/17 07:24 99 40 06/08/17 06:00 84 06/08/17 04:00 98.8 86 15 162/69 (100) 100 06/08/17 04:00 86 06/08/17 04:00 100 40 06/08/17 02:00 80 06/08/17 01:22 98 40 06/08/17 00:00 83 06/08/17 00:00 100.1 81 14 113/55 (74) 100 06/07/17 22:48 99 40 06/07/17 22:00 84 06/07/17 20:00 100.3 93 14 109/52 (71) 98 Arterial Line 06/07/17 20:00 84 06/07/17 19:46 99 40 06/07/17 18:00 91 06/07/17 16:45 90 06/07/17 16:45 90 15 106/58 (74) 98 06/07/17 16:30 94 15 109/55 (73) 97 06/07/17 16:30 94 06/07/17 16:15 95 16 105/56 (72) 98 06/07/17 16:15 95 06/07/17 16:00 98.2 94 16 104/51 (68) 97 06/07/17 16:00 94 06/07/17 15:31 97 06/07/17 15:15 102 06/07/17 15:02 98 40 06/07/17 15:00 100 12/23/17 14:46 102 06/07/17 14:30 95 06/07/17 14:15 97 06/07/17 14:01 98 06/07/17 14:01 98 16 112/55 (74) 100 06/07/17 14:00 94 06/07/17 14:00 94 15 100 06/07/17 13:45 95 06/07/17 13:45 95 16 97/54 (68) 100 06/07/17 13:30 96 06/07/17 13:30 96 14 102/52 (69) 100 06/07/17 13:15 95 06/07/17 13:15 95 16 104/58 (73) 99 06/07/17 13:00 95 06/07/17 13:00 95 14 105/57 (73) 99 06/07/17 12:45 97 15 105/54 (71) 99 06/07/17 12:45 97 06/07/17 12:31 98 14 108/55 (72) 99 06/07/17 12:31 98 06/07/17 12:15 101 20 125/51 (75) 99 06/07/17 12:15 101 06/07/17 12:01 102 20 122/58 (79) 98 06/07/17 12:01 102 06/07/17 12:00 102 06/07/17 12:00 102 17 98 06/07/17 11:16 100 50 -: 06/08/17 0436 06/08/17 0436 Microbiology 06/07/17 Gram Stain - Final, Resulted 06/07/17 Sputum Culture, Resulted Pending Physical Exam General Appearance Remarks Intubated and sedated. Eyes Eye Exam: Pupils Equal Throat Throat Exam: Oral Mucosa [place] Place & Moist Neck Neck Exam: Neck Supple Pulmonary Resp Exam: Breath Sounds Equal, No Distress, Rhonchi, Decreased Bases Cardiology CV Exam: Regular, Normal Sinus Rhythm Gastrointestinal/Abdomen GI Exam: Soft, Non-Tender, Bowel Sounds Present Extremeties Extremities Exam: Trace Edema (Bilateral scalling and dryness of skin, in lower leg.) Neurologic Neuro Exam: Sedated Assessment/Plan Assessment Summary: KATERIN/Acute Renal Failure, Hypertension, CKD Stage III Problem List: (1) Acute kidney injury ICD Codes: N17.9 - Acute kidney failure, unspecified (2) Altered mental status ICD Codes: R41.82 - Altered mental status Status: Acute (3) Hx of deep venous thrombosis ICD Codes: Z86.718 - History of deep venous thrombosis Status: Chronic (4) CHF (congestive heart failure) ICD Codes: I50.9 - Congestive heart failure Status: Resolved (5) Diabetes ICD Codes: E11.9 - Diabetes Status: Chronic (6) Hypothyroidism ICD Codes: E03.9 - Hypothyroidism, unspecified Status: Chronic (7) Hypertension ICD Codes: I10 - Hypertension Status: Chronic (8) Chronic kidney disease, stage 3 ICD Codes: N18.3 - Chronic kidney disease, stage 3 (moderate) (9) Rhabdomyolysis ICD Codes: M62.82 - Rhabdomyolysis Plan Patient has been non oliguric. Has chronic kidney disease with baseline Creatinine 1.3-1.5. Most likely has chronic kidney disease due to Hypertensive or renovascular disease. Now develop KATERIN, possibly due to Rhabdo. or Obstructive uropathy. Develop cardiac arrest and intubated. BP is now stable, Urine out put is adequate. Creatinine is now improving, Urine out put is good, on Lasix, follow the urine out put and BMP. Weaning as per CCM. Problem Qualifiers (1) Hypertension: Qualified Codes: I10 - Essential (primary) hypertension Sunita Martin MD Jun 08, 2017 10:44
--- NOTE | 2017-06-08 10:50 | HHI.FPPN ---
Subjective Remarks Patient seen and examined this morning. He remains intubated and sedated. Low- grade fever of 100.3 night, otherwise vital stable Objective Vitals Vital Signs Date Time Temp Pulse Resp B/P (MAP) Pulse Ox O2 Delivery O2 Flow Rate FiO2 06/08/17 08:00 81 06/08/17 08:00 99.6 81 14 118/56 (76) 100 06/08/17 07:24 99 40 06/08/17 06:00 84 06/08/17 04:00 98.8 86 15 162/69 (100) 100 06/08/17 04:00 86 06/08/17 04:00 100 40 06/08/17 02:00 80 06/08/17 01:22 98 40 06/08/17 00:00 83 06/08/17 00:00 100.1 81 14 113/55 (74) 100 06/07/17 22:48 99 40 06/07/17 22:00 84 06/07/17 20:00 100.3 93 14 109/52 (71) 98 Arterial Line 06/07/17 20:00 84 06/07/17 19:46 99 40 06/07/17 18:00 91 06/07/17 16:45 90 06/07/17 16:45 90 15 106/58 (74) 98 06/07/17 16:30 94 15 109/55 (73) 97 06/07/17 16:30 94 06/07/17 16:15 95 16 105/56 (72) 98 06/07/17 16:15 95 06/07/17 16:00 98.2 94 16 104/51 (68) 97 06/07/17 16:00 94 06/07/17 15:31 97 06/07/17 15:15 102 06/07/17 15:02 98 40 06/07/17 15:00 100 06/07/17 14:46 102 06/07/17 14:30 95 06/07/17 14:15 97 06/07/17 14:01 98 06/07/17 14:01 98 16 112/55 (74) 100 06/07/17 14:00 94 06/07/17 14:00 94 15 100 06/07/17 13:45 95 06/07/17 13:45 95 16 97/54 (68) 100 06/07/17 13:30 96 06/07/17 13:30 96 14 102/52 (69) 100 06/07/17 13:15 95 06/07/17 13:15 95 16 104/58 (73) 99 06/07/17 13:00 95 06/07/17 13:00 95 14 105/57 (73) 99 06/07/17 12:45 97 15 105/54 (71) 99 06/07/17 12:45 97 06/07/17 12:31 98 14 108/55 (72) 99 06/07/17 12:31 98 06/07/17 12:15 101 20 125/51 (75) 99 06/07/17 12:15 101 06/07/17 12:01 102 20 122/58 (79) 98 06/07/17 12:01 102 06/07/17 12:00 102 06/07/17 12:00 102 17 98 06/07/17 11:16 100 50 I/O 06/07/17 06/07/17 06/07/17 06/08/17 06/08/17 06/08/17 07:00 15:00 23:00 07:00 15:00 23:00 Intake Total 240 ml 1038 ml 550 ml Output Total 1100 ml 450 ml 450 ml Balance -860 ml 588 ml 100 ml Intake Oral 240 ml IV Total 715 ml 200 ml Tube Feeding 203 ml 150 ml Tube Irrigant 200 ml Other 120 ml Output Urine Total 1100 ml 450 ml 450 ml # Bowel Movements 0 2 Result Diagram: 06/08/1743506/08/17435 Objective Remarks GENERAL: elderly man, intubated, laying in bed, sedated SKIN: scaling and dryness of right and left leg EYES: legally blind, yellow crusting of both eyes ENT: dental caries, dry crusting of lips CARDIOVASCULAR: Regular rate and rhythm RESPIRATORY: decreased breath sounds in b/l bases. Coarse breath sounds throughout. 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 Momentarily awake, could follow commands at that time. A/P Assessment and Plan 67 year old male with CHF (EF 35%), HTN, CKD stage 3, CAD s/p 3 vessel CABG, Afib on xarelto, HTN, HLD, DM admitted for acute infarct of posterior left MCA. Currently on empiric antibiotics due to meeting sepsis criteria. Discharge Planning Unclear timetable at this time PT- return to SNF at [facility]- patient will require speech therapy after discharge OT- OT at rehab, SNF Problem List: (1) Pneumonia ICD Codes: J18.9 - Pneumonia Status: Acute Plan: Sputum culture grew MRSA and E. Coli. Possibly aspiration pneumonia ID consulted-appreciate recs. -D/c cipro/flagyl (06/07) -Started Cefepime (06-07 - ) -Continue Vancomycin (2) Mechanically assisted ventilation ICD Codes: Z99.11 - Mechanically assisted ventilation Status: Resolved Plan: Extubated 06/05, status post cardiac arrest and return of spontaneous circulation on 06/04. Reintubated 06/07 for respiratory distress. -Continue ICU management [employer] Super[employer] consulted-appreciate recs -CPAP trials today (3) Ischemic stroke ICD Codes: I63.9 - Cerebral infarction, unspecified Status: Acute Plan: Patient presented with aphasia and left-sided weakness and mild right- sided weakness upon arrival to ED. Brain MRI demonstrated increased signal in the posterior left MCA distribution on the diffusion of weighted images characteristic of an acute or subacute infarct. Currently no mass shift or evidence hemorrhage. Carotid US: moderate visble plaque in both carotid arteries, findings suggest at least a moderate stenosis. possible significant carotid disease, though not a good candidate for further imaging of the carotids at this point Neurology consulted, recs appreciated. -Continue aspirin 325 mg PO daily -Continue Xarelto 20mg PO daily -Physical therapy (4) Sepsis ICD Codes: A41.9 - Sepsis Status: Acute Plan: ID consulted-appreciate recs Continue Vancomycin 1500 mg IV, pharmacy consulted for renal dosage, appreciate recs Cefepime as above (5) Congestive heart failure ICD Codes: I50.9 - Heart failure, unspecified Status: Chronic Plan: Echo form 03/14/17 demonstrated 35% ejection fraction CXR 06/01 revealed cardiomegaly and stable compared to CXR 05/22/17, which revealed slight blunting of the left costophrenic sulcus suggesting a small left pleural effusion CXR 06/01 demonstrated moderate pulmonary vascular congestion Echo 06/01: mildly dilated LV, EF 25%, mild to moderate aortic sclerosis Echo 06/04: EF 20% -Lasix 20mg PO BID -Monitor HR and BP -Coreg 3.125mg BID (6) Chronic kidney disease, stage 3 ICD Codes: N18.3 - Chronic kidney disease, stage 3 (moderate) Plan: Baseline Cr. 1.3-1.5; Stable around 1.4-1.6 -Continue to monitor -Nephrology consulted, recs appreciated -Avoid nephrotoxins -Follow I/O (7) Rhabdomyolysis ICD Codes: M62.82 - Rhabdomyolysis Plan: Elevated creatine kinase 2533 most likely due to tremors, decreased to 1397 Improving NS 125mls/hr Continue to monitor Nephrology consulted, appreciate recs (8) Atrial fibrillation ICD Codes: I48.91 - Atrial fibrillation Status: Chronic Plan: -Xarelto 20mg PO daily (9) Hypertension ICD Codes: I10 - Hypertension Status: Chronic Plan: -Continue home meds: Coreg 6.25 mg PO q12 Losartan 50mg PO daily (10) Neurogenic bladder ICD Codes: N31.9 - Neuromuscular dysfunction of bladder, unspecified Plan: Neurogenic bladder due to stroke -Conde catheter placed (11) Hyperlipidemia ICD Codes: E78.5 - Hyperlipidemia Status: Chronic Plan: -Continue Atorvastatin 40mg PO HS (12) Hypothyroidism ICD Codes: E03.9 - Hypothyroidism, unspecified Status: Chronic Plan: -Continue Levothyroxine 112mcg PO daily (13) Diabetes ICD Codes: E11.9 - Diabetes Status: Chronic Plan: -Low dose SS -Held home insulin (14) Nutrition, metabolism, and development symptoms ICD Codes: R63.8 - Other symptoms and signs concerning food and fluid intake Status: Acute Plan: Fluids: none due to CHF Diet: Tube feeds Electrolytes: monitor and replace as needed DVT ppx: Xarelto, SCDs Problem Qualifiers (1) Pneumonia: Qualified Codes: J15.212 - Pneumonia due to methicillin resistant Staphylococcus aureus (2) Congestive heart failure: Qualified Codes: I50.9 - Heart failure, unspecified (3) Atrial fibrillation: Qualified Codes: I48.2 - Chronic atrial fibrillation (4) Hypertension: Qualified Codes: I10 - Essential (primary) hypertension Ángel Pulido MD, R2 Jun 08, 2017 10:50
[2017-06-08 12:46] LABS: HEMATOCRIT 24.2 % (39.0-51.0)
[2017-06-08] MEDS: VANCOMYCIN INJ 1,500 MG in SODIUM CHLORID 0.9% 500 ML INJ 500 ML IV SCH (14:16)
[2017-06-08] MEDS: PANTOPRAZOLE SODIUM 40 MG VIAL IV PUSH SCH (17:34)
[2017-06-08] MEDS: MORPHINE SULFATE 2 MG/ML INJ IV PUSH PRN (18:00)
[2017-06-08] MEDS: SODIUM CHLORIDE 0.9% FLUSH 10 ML FLUSH IV FLUSH PRN (18:01)
--- NOTE | 2017-06-08 18:15 | HHI.PR ---
Addendum to Inpatient Note Additional Information pt seen around 1500 today full note to follow Traci Bello MD Jun 08, 2017 18:14
[2017-06-08] MEDS: ATORVASTATIN 40 MG TAB PO SCH (19:58)
--- NOTE | 2017-06-08 23:16 | HHI.IDPN ---
Subjective Subjective Remarks delayed entry - pt was seen earlier today he remians on vent he had fever up to 101 in the last 24 hrs growing MRSA in the sputum Antibiotics vanco CFTX Allergies: Coded Allergies: Iodinated Contrast- Oral and IV Dye (Verified Allergy, Severe, Anaphylaxis , 05/29/17) acetaminophen (Unverified Allergy, Severe, "LIVER PROBLEMS", 05/29/17) diatrizoate meglumine (Unverified Allergy, Severe, Anaphylaxis, 05/29/17) gadobenic acid (Unverified Allergy, Severe, Anaphylaxis, 05/29/17) gadodiamide (Unverified Allergy, Severe, Anaphylaxis, 05/29/17) gadoteridol (Unverified Allergy, Severe, Anaphylaxis, 05/29/17) iodixanol (Unverified Allergy, Severe, Anaphylaxis, 05/29/17) iohexol (Unverified Allergy, Severe, Anaphylaxis, 05/29/17) penicillin G (Unverified Allergy, Severe, "HOT THROAT", 05/29/17) Uncoded Allergies: RADIOISOTOPES (Allergy, Severe, 09/27/13) UNKONWN RXN, LISTED ON PATIENT PAPERWORK FROM [facility]. Objective . Vital Signs Date Time Temp Pulse Resp B/P (MAP) Pulse Ox O2 Delivery O2 Flow Rate FiO2 06/08/17 22:03 100 40 06/08/17 20:00 99.5 83 14 110/54 (72) 99 06/08/17 20:00 40 06/08/17 19:12 100 Ventilator 40 06/08/17 19:12 100 40 06/08/17 18:21 17 06/08/17 18:00 84 06/08/17 16:16 100 40 06/08/17 16:00 80 06/08/17 16:00 80 16 145/64 (91) 100 06/08/17 16:00 40 06/08/17 15:30 80 143/65 (91) 100 06/08/17 15:00 80 129/58 (81) 97 06/08/17 14:31 85 147/63 (91) 99 06/08/17 14:01 90 162/67 (98) 98 06/08/17 14:00 91 06/08/17 14:00 91 06/08/17 13:31 92 156/85 (108) 06/08/17 13:00 91 155/65 (95) 98 06/08/17 12:31 95 22 156/67 (96) 95 06/08/17 12:00 87 06/08/17 12:00 40 06/08/17 12:00 98.8 87 17 120/94 (103) 100 06/08/17 11:30 80 20 130/71 (90) 06/08/17 11:01 79 18 115/77 (90) 06/08/17 10:51 96 40 06/08/17 10:51 40 06/08/17 10:31 80 100/60 (73) 06/08/17 10:01 78 107/53 (71) 92 06/08/17 10:00 81 06/08/17 09:30 81 129/59 (82) 100 06/08/17 09:00 82 117/59 (78) 100 06/08/17 08:00 81 06/08/17 08:00 99.6 81 14 118/56 (76) 100 06/08/17 07:24 99 40 06/08/17 06:00 84 06/08/17 04:00 98.8 86 15 162/69 (100) 100 06/08/17 04:00 86 06/08/17 04:00 100 40 06/08/17 02:00 80 06/08/17 01:22 98 40 06/08/17 00:00 83 06/08/17 00:00 100.1 81 14 113/55 (74) 100 06/08/17 06/08/17 06/09/17 15:00 23:00 07:00 Intake Total 1294 ml Output Total 575 ml Balance 719 ml IV Total 819 ml Tube Feeding 225 ml Other 250 ml Output Urine Total 575 ml # Bowel Movements 2 . Laboratory Tests Test 06/07/17 07:30 06/08/17 04:36 06/08/17 11:50 White Blood Count 13.8 TH/MM3 13.0 TH/MM3 Red Blood Count 3.27 MIL/MM3 2.97 MIL/MM3 Hemoglobin 8.5 GM/DL 7.6 GM/DL 8.0 GM/DL Hematocrit 27.0 % 24.4 % 24.2 % Mean Corpuscular Volume 82.7 FL 82.3 FL Mean Corpuscular Hemoglobin 26.1 PG 25.7 PG Mean Corpuscular Hemoglobin Concent 31.6 % 31.2 % Red Cell Distribution Width 19.7 % 18.9 % Platelet Count 360 TH/MM3 334 TH/MM3 Mean Platelet Volume 8.6 FL 8.0 FL Neutrophils (%) (Auto) 83.5 % 82.5 % Lymphocytes (%) (Auto) 7.0 % 6.4 % Monocytes (%) (Auto) 6.9 % 8.5 % Eosinophils (%) (Auto) 2.0 % 2.2 % Basophils (%) (Auto) 0.6 % 0.4 % Neutrophils # (Auto) 11.5 TH/MM3 10.7 TH/MM3 Lymphocytes # (Auto) 1.0 TH/MM3 0.8 TH/MM3 Monocytes # (Auto) 1.0 TH/MM3 1.1 TH/MM3 Eosinophils # (Auto) 0.3 TH/MM3 0.3 TH/MM3 Basophils # (Auto) 0.1 TH/MM3 0.0 TH/MM3 CBC Comment AUTO DIFF DIFF FINAL Differential Total Cells Counted 100 Neutrophils % (Manual) 76 % Band Neutrophils % 7 % Lymphocytes % 7 % Monocytes % 8 % Neutrophils # (Manual) 11.6 TH/MM3 Myelocytes 1 % Differential Comment FINAL DIFF MANUAL Blastocytes 1 % Platelet Estimate NORMAL Platelet Morphology Comment NORMAL Red Cell Morphology Comment NORMAL Laboratory Tests Test 06/07/17 07:30 06/08/17 04:36 Blood Urea Nitrogen 23 MG/DL 28 MG/DL Creatinine 1.93 MG/DL 1.55 MG/DL Random Glucose 178 MG/DL 160 MG/DL Total Protein 5.9 GM/DL 5.4 GM/DL Albumin 1.8 GM/DL 1.6 GM/DL Calcium Level 7.4 MG/DL 7.4 MG/DL Phosphorus Level 5.8 MG/DL Magnesium Level 1.6 MG/DL Alkaline Phosphatase 108 U/L 91 U/L Aspartate Amino Transf (AST/SGOT) 35 U/L 30 U/L Alanine Aminotransferase (ALT/SGPT) 40 U/L 27 U/L Total Bilirubin 0.3 MG/DL 0.3 MG/DL Sodium Level 146 MEQ/L 148 MEQ/L Potassium Level 3.8 MEQ/L 3.8 MEQ/L Chloride Level 110 MEQ/L 112 MEQ/L Carbon Dioxide Level 28.1 MEQ/L 29.2 MEQ/L Anion Gap 8 MEQ/L 7 MEQ/L Estimat Glomerular Filtration Rate 35 ML/MIN 45 ML/MIN Protein Corrected Calcium 8.1 MG/DL 8.3 MG/DL Troponin I 0.19 NG/ML Microbiology Date/Time Source Procedure Growth Status 06/07/17 11:30 Sputum Expectorated Sputum Gram Stain - Final Resulted 06/07/17 11:30 Sputum Culture - Preliminary S. Aureus Mrsa Resulted Imaging Last Impressions Chest X-Ray 06/07/17 0000 Signed Impressions: Service Date/Time: Wednesday, June 07, 2017 07:19 - CONCLUSION: ET tube in good position. Juan Carvalho MD FACR Abdomen X-Ray 06/05/17 0000 Signed Impressions: Service Date/Time: May 07:39 - CONCLUSION: Normal examination. The nasogastric is within the proximal stomach Desmond Hudson MD Head CT 06/04/17 0000 Signed Impressions: Service Date/Time: May 04:33 - CONCLUSION: 1. No acute intracranial abnormality seen. 2. Mild atrophy. 3. Persistent increased density within the right globe. Ap Quigley MD Head Magnetic Resonance Angiography 05/29/17 0000 Signed Impressions: Service Date/Time: May 18:31 - CONCLUSION: 1. Suboptimal exam degraded by motion as above. No definite occlusive disease. Nilson Jeffries MD Carotid Artery Ultrasound 05/29/17 0000 Signed Impressions: Service Date/Time: May 19:47 - CONCLUSION: Moderate visible plaque in both carotid arteries. Findings suggest at least a moderate stenosis. This would be better evaluated with CTA carotids. Nilson Jeffries MD Brain MRI 05/29/17 0000 Signed Impressions: Service Date/Time: May 18:31 - CONCLUSION: 1. There is increased signal in the posterior left MCA distribution on the diffusion weighted images characteristic of an acute or subacute infarct. Currently no mass shift or evidence for hemorrhage. Nilson Jeffries MD Abdomen/Pelvis CT 05/29/17 0000 Signed Impressions: Service Date/Time: May 18:10 - CONCLUSION: 1. No acute finding on CT abdomen and pelvis. 2. Calcified gallstones. 3. There is a small hiatal hernia. Distended bladder. 4. 2.3 cm lesion lower pole right kidney not clearly a cyst. Recommend renal ultrasound to assess for cyst versus solid mass. Nilson Jeffries MD Physical Exam CONSTITUTIONAL/GENERAL: This is an adequately nourished patient, in no apparent distress. intubated, on vent TUBES/LINES/DRAINS: R SCV TLC SKIN: No jaundice, rashes, or lesions. Skin temperature appropriate. Not diaphoretic. CARDIOVASCULAR: Regular rate and rhythm without murmurs, gallops, or rubs. No JVD. Peripheral pulses symmetric. RESPIRATORY/CHEST: Symmetric, unlabored respirations. Clear to auscultation. Breath sounds equal bilaterally. No wheezes, rales, or rhonchi. GASTROINTESTINAL: Abdomen soft, non-tender, nondistended. No hepato-splenomegaly , or palpable masses. No guarding. Bowel sounds present. GENITOURINARY: Without palpable bladder distension. Conde catheter in place with clear urine MUSCULOSKELETAL: Extremities without clubbing, cyanosis, BLE with tree bark changes BNo edema No joint tenderness or effusion noted. No calf tenderness. No mottling or clubbing. NEUROLOGICAL: sedated. Unresponsivve PSYCHIATRIC: unable to assess Assessment & Plan Remarks sp PEA sp stroke Fever, ? B/b PNA Pt having fever since admission New acute VDRF cont vanco, cefepime fu sputum clx dw Traci Hoff MD Jun 08, 2017 23:16
[2017-06-09] VITALS (29 sets, daily range): BP systolic 108–144; BP diastolic 53–62; PULSE 61–102; RESP 18; TEMP 99–101.1; O2SAT 97–100
[2017-06-09] MEDS: MORPHINE SULFATE 2 MG/ML INJ IV PUSH PRN (00:36)
[2017-06-09] MEDS: PROPOFOL 1000 MG/100 ML INJ 100 ML IV PRN ×4 (01:20→20:17)
[2017-06-09] MEDS: RESP: ALBUTEROL 2.5 MG/IPRATROPIUM 0.5 MG NEB (SCH) NEB ×6 (03:22→23:02)
[2017-06-09] MEDS: ACETAMINOPHEN 325 MG TAB PO PRN (04:33)
[2017-06-09 04:44] LABS: AUTOMATED NEUTROPHIL # 9.3 TH/MM3 (1.8-7.7); BASOPHIL # 0.1 TH/MM3 (0-0.2); BASOPHIL % 0.6 % (0.0-2.0); EOSINOPHIL # 0.4 TH/MM3 (0-0.4); EOSINOPHIL % 3.2 % (0.0-4.0); HEMATOCRIT 22.8 % (39.0-51.0); HEMOGLOBIN 7.2 GM/DL (13.0-17.0); LYMPH % 8.5 % (9.0-44.0); MEAN CELL VOLUME 81.9 FL (80.0-100.0); MEAN CORPUSCULAR HGB CONC 31.7 % (32.0-36.0); MEAN PLATELET VOLUME 7.9 FL (7.0-11.0); MONO % 8.6 % (0.0-8.0); NEUT % 79.1 % (16.0-70.0); PLATELET COUNT 375 TH/MM3 (150-450); RED BLOOD COUNT 2.79 MIL/MM3 (4.50-5.90); RED CELL DISTRIBUTION WIDTH 19.1 % (11.6-17.2); WHITE BLOOD COUNT 11.8 TH/MM3 (4.0-11.0)
[2017-06-09 05:03] LABS: BICARBONATE 29.1 MEQ/L (21.0-32.0); CALCIUM 7.4 MG/DL (8.5-10.1); CREATININE 1.42 MG/DL (0.60-1.30)
[2017-06-09 05:21] LABS: CALCIUM-PROTEIN CORRECTED 8.1 MG/DL (8.5-10.1); TOTAL PROTEIN 5.8 GM/DL (6.4-8.2)
[2017-06-09] MEDS: LEVOTHYROXINE SODIUM 25 MCG TAB PO SCH (05:43)
[2017-06-09] MEDS: FREE WATER G-TUBE SCH ×3 (05:43→20:19)
[2017-06-09] MEDS: LEVOTHYROXINE SODIUM 112 MCG TAB PO SCH (05:43)
[2017-06-09] MEDS: INSULIN ASPART SUPPLEMENTAL SCALE SQ SCH ×4 (05:49→16:47)
[2017-06-09 06:56] LABS: BANDS 3 % (0-6); LYMPHOCYTES 7 % (9-44); METAMYELOCYTES 1 % (0-1); MONOCYTES 12 % (0-8); NEUTROPHIL # MANUAL DIFF 9.2 TH/MM3 (1.8-7.7); POLYS (SEG NEUTROPHILS) 74 % (16-70)
[2017-06-09] MEDS: DOCUSATE SODIUM 50 MG/SENNA 8.6 MG TAB PO SCH ×2 (08:22→20:19)
[2017-06-09] MEDS: CARVEDILOL 3.125 MG TAB PO SCH ×2 (08:22→20:17)
[2017-06-09] MEDS: ASPIRIN 325 MG TAB PO SCH (08:22)
[2017-06-09] MEDS: FUROSEMIDE 40 MG/4 ML VIAL IV PUSH SCH ×2 (08:23→16:45)
[2017-06-09] MEDS: RIVAROXABAN 15 MG TAB PO SCH (08:23)
[2017-06-09] MEDS: CEFEPIME INJ 2,000 MG in SODIUM CHLORIDE 0.9% INJ 100 ML IV SCH (08:23)
[2017-06-09] MEDS: prednisoLONE ACETATE 1% OPHT SUSP 5 ML BTL RIGHT EYE SCH ×2 (08:25→20:19)
[2017-06-09] MEDS: CARBAMIDE PEROXIDE 6.5% OTIC SOLN 15 ML BTL EACH EAR SCH (08:26)
[2017-06-09] MEDS: SODIUM CHLORIDE 0.9% FLUSH 10 ML FLUSH IV FLUSH SCH ×2 (08:29→20:16)
[2017-06-09] MEDS: CHLORHEXIDINE 0.12% (ORAL KIT) 15 ML CUP MT SCH ×2 (08:29→20:19)
[2017-06-09] MEDS ORDERED: SODIUM CHLOR 0.9% 250 ML INJ 250 ML IV ONE (08:45)
--- NOTE | 2017-06-09 09:19 | HHI.CCPN ---
Subjective Remarks/Hospital Course Patient is a 67-year-old white male was admitted to the [facility] service on 05/30/17 with acute left MCA stroke with right hemiparesis. He has a past medical history significant for CHF with ejection fraction 25% (echo 06/01), Atrial fibrillation on Xarelto, chronic kidney disease stage III, rhabdomyolysis , Hypertension, Anemia, Hyperlipidemia, Diabetes Mellitus and Hypothyroidism. Apparently patient was in his regular state of health, improving right hemiparesis today am. A code blue was called overhead after the patient was found on the bed unresponsive and pulseless, which I responded immediately. CPR was started. See Code sheet for details-rhythm was pea with A. fib. Patient received 2 amp epinephrine, 1amp of bicarb. CPR continued and after total 5 min there was return of spontaneous circulation. I intubated patient during code, after return of spontaneous circulation. Patient was quickly moved to the ICU where resuscitation was continued with IV fluids boluses. I placed a right femoral arterial line for invasive cardiac/hemodynamic monitoring. As the blood pressure was trending down to low 90s systolic patient was started on Levophed infusion. I also placed a right subclavian central line. Patient remained in atrial fibrillation but blood pressure improved with map consistently above 65 with fluid resuscitation and Levophed infusion. I discussed with patient's guardian, who wants patient to be DNR, but wants to continue aggressive treatment. CT of the head is pending at this time. PE is unlikely as the patient had been on Xarelto for anticoagulation SUBJ 06/05/17: Intubated currently off sedation. Remains encephalopathic, sodium 150. Restart Lasix. Did not tolerate weaning trial due to apnea. Stat echo shows EF 20% 06/06 Reconsult: Rylie was called on floor for resp distress [place] [facility] [place] was tachycardic, tachypneic and hypoxic with sats 80's on NRB. He was subsequently intubated and placed on mechanical ventilation. Patient was given Lasix 40mg IV. 06/08 Patient remains sedated and intubated. Afebrile. Renal function is improving with Cr: 1.55 today from 1.93 06/09: Remains sedated, orally intubated on mechanical ventilation. Hemoglobin 7.2 this morning. No melena or rectal bleeding overnight per discussion with RN Objective Vital Signs Date Time Temp Pulse Resp B/P (MAP) Pulse Ox O2 Delivery O2 Flow Rate FiO2 06/09/17 07:29 40 06/09/17 07:29 100 06/09/17 06:00 61 06/09/17 04:00 101.1 18 142/62 (88) 06/08/17 19:12 Ventilator 06/07/17 06:25 15.00 Intake and Output 06/09/17 06/09/17 06/10/17 08:00 16:00 00:00 Intake Total 1101 ml Output Total 475 ml Balance 626 ml Result Diagram: 06/09/1741606/09/17416 Imaging Last Impressions Chest X-Ray 06/07/17 0000 Signed Impressions: Service Date/Time: Wednesday, June 07, 2017 07:19 - CONCLUSION: ET tube in good position. Juan Carvalho MD FACR Abdomen X-Ray 06/05/17 0000 Signed Impressions: Service Date/Time: May 07:39 - CONCLUSION: Normal examination. The nasogastric is within the proximal stomach Desmond Hudson MD Head CT 06/04/17 0000 Signed Impressions: Service Date/Time: May 04:33 - CONCLUSION: 1. No acute intracranial abnormality seen. 2. Mild atrophy. 3. Persistent increased density within the right globe. Ap Quigley MD Head Magnetic Resonance Angiography 05/29/17 0000 Signed Impressions: Service Date/Time: May 18:31 - CONCLUSION: 1. Suboptimal exam degraded by motion as above. No definite occlusive disease. Nilson Jeffries MD Carotid Artery Ultrasound 05/29/17 0000 Signed Impressions: Service Date/Time: May 19:47 - CONCLUSION: Moderate visible plaque in both carotid arteries. Findings suggest at least a moderate stenosis. This would be better evaluated with CTA carotids. Nilson Jeffries MD Brain MRI 05/29/17 0000 Signed Impressions: Service Date/Time: May 18:31 - CONCLUSION: 1. There is increased signal in the posterior left MCA distribution on the diffusion weighted images characteristic of an acute or subacute infarct. Currently no mass shift or evidence for hemorrhage. Nilson Jeffries MD Abdomen/Pelvis CT 05/29/17 0000 Signed Impressions: Service Date/Time: May 18:10 - CONCLUSION: 1. No acute finding on CT abdomen and pelvis. 2. Calcified gallstones. 3. There is a small hiatal hernia. Distended bladder. 4. 2.3 cm lesion lower pole right kidney not clearly a cyst. Recommend renal ultrasound to assess for cyst versus solid mass. Nilson Jeffries MD Objective Remarks GENERAL: Elderly male lethargic, encephalopathic now intubated EYES: legally blind per previous notes ENT: Poor dentition. Dry oral mucosa. Orotracheally intubated CARDIOVASCULAR: Tachycardic,Irregular heart rate. Systolic murmur heard in all areas RESPIRATORY: Bilaterally equal breath sounds, diminished in the bases GASTROINTESTINAL: Protuberant abdomen, tympanic, improved with NG tube decompression MUSCULOSKELETAL: S/p right great toe and fifth toe amputation, Small ulcers on bilateral anterior fleming, Non stageable pressure ulcer on bilateral sole, eschar left lateral foot NEUROLOGICAL: Sedated, Intubated A/P Assessment and Plan NEURO: Metabolic encephalopathy Possible anoxic injury Status post left MCA stroke 6 days ago - Encephalopathy post code possible anoxic injury - CT of the head stat 06/04 -no acute changes, MRI 05/29 had show L MCA stroke - Diprivan infusion for sedation. Daily sedation vacation. RESP: Acute respiratory failure- Reintubated today - Continue with vent support keep sat >92% -Bronchodilators, ICU vent bundle. -Start SBT daily as farzad. CV: PEA arrest on 06/04 Cardiogenic shock-resolved Atrial fibrillation on chronic Xarelto Cardiomyopathy with EF 25% - Monitor HR and BP keep MAP>65mmHg - 2D Echo 06/01 with EF 25%. - IV Lasix 20 mg Q12 - Continue aspirin, Xarelto, Coreg 3.125mg BID. Not on Pk-I due to KATERIN GI: - IV Protonix - On tube feeds with Glucerna 1.5 with goal rate 45ml/hr : Chronic kidney disease - Monitor renal function, I/O's, electrolytes replacement as needed. -Renal is following- Dr. Martin. - Lasix 20mg IV BID -Place on Free water 250ml Q8 monitor sodium level. ID: -Pneumonia ( MRSA, E.coli) Sputum 06/04: MRSA, E.coli - Continue abx per ID ( On Vanco, Cefepime) monitor for signs of infections ( Fever, WBC) Follow up on sputum and blood culture HEME: - Monitor CBC, 1 unit PRBCs ordered for Hgb 7.2 on 06/09. ENDO: Hypothyroidism. - Sliding-scale insulin for glycemic control -Continue Synthroid. TSH: 1.2 PROPH: - Bilateral lower extremity SCDs. Continue Xarelto MSK: - Wound care consulted for bilateral sole pressure ulcer, eschar L lateral feet LINES: - Right subclavian central line placed 06/04/17 Level 3 Young Deluca MD Jun 09, 2017 09:19
--- NOTE | 2017-06-09 10:13 | HHI.FPPN ---
Subjective Remarks Patient seen and examined this morning. Currently sedated on 20 g propofol, intubated. Fever to 101.1 this morning. Was contacted by nursing's morning concerning patient's CODE STATUS. Currently the CODE STATUS is full code as was discussed and documented on 06/06 with the patient prior to intubation, while the patient was alert and oriented. Secondarily the patient continues to have decreasing hemoglobin at this time. The patient is currently unable to actively make his own medical decisions. The nursing staff has attempted to contact his healthcare proxy to no avail after several attempts and several hours. At this time I agree with Dr. Deluca's plan to administer 1 unit of packed red blood cells and believe it would be in the patient's best interests. Objective Vitals Vital Signs Date Time Temp Pulse Resp B/P (MAP) Pulse Ox O2 Delivery O2 Flow Rate FiO2 06/09/17 07:29 40 06/09/17 07:29 100 40 06/09/17 06:00 61 06/09/17 04:00 102 06/09/17 04:00 40 06/09/17 04:00 101.1 102 18 142/62 (88) 98 06/09/17 03:20 99 40 06/09/17 02:00 97 06/09/17 00:00 100.1 91 129/60 (83) 100 06/09/17 00:00 40 06/09/17 00:00 91 06/08/17 22:03 100 40 06/08/17 22:00 88 06/08/17 20:00 83 06/08/17 20:00 99.5 83 14 110/54 (72) 99 06/08/17 20:00 40 06/08/17 19:12 100 Ventilator 40 06/08/17 19:12 100 40 06/08/17 18:21 17 06/08/17 18:00 84 06/08/17 16:16 100 40 06/08/17 16:00 80 06/08/17 16:00 80 16 145/64 (91) 100 06/08/17 16:00 40 06/08/17 15:30 80 143/65 (91) 100 06/08/17 15:00 80 129/58 (81) 97 06/08/17 14:31 85 147/63 (91) 99 06/08/17 14:01 90 162/67 (98) 98 06/08/17 14:00 91 06/08/17 14:00 91 06/08/17 13:31 92 156/85 (108) 06/08/17 13:00 91 155/65 (95) 98 06/08/17 12:31 95 22 156/67 (96) 95 06/08/17 12:00 87 06/08/17 12:00 40 06/08/17 12:00 98.8 87 17 120/94 (103) 100 06/08/17 11:30 80 20 130/71 (90) 06/08/17 11:01 79 18 115/77 (90) 06/08/17 10:51 96 40 06/08/17 10:51 40 06/08/17 10:31 80 100/60 (73) I/O 06/08/17 06/08/17 06/08/17 06/09/17 06/09/17 06/09/17 07:00 15:00 23:00 07:00 15:00 23:00 Intake Total 550 ml 1294 ml 1101 ml Output Total 450 ml 575 ml 475 ml Balance 100 ml 719 ml 626 ml IV Total 200 ml 819 ml 51 ml Tube Feeding 150 ml 225 ml 450 ml Tube Irrigant 200 ml 600 ml Other 250 ml Output Urine Total 450 ml 575 ml 475 ml # Bowel Movements 2 2 Result Diagram: 06/09/1741606/09/17416 Objective Remarks GENERAL: elderly man, intubated, laying in bed, sedated SKIN: scaling and dryness of right and left leg EYES: legally blind, yellow crusting of both eyes ENT: dental caries, dry crusting of lips CARDIOVASCULAR: Regular rate and rhythm RESPIRATORY: decreased breath sounds in b/l bases. Coarse breath sounds throughout. 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 Momentarily awake, could follow commands at that time. A/P Assessment and Plan 67 year old male with CHF (EF 35%), HTN, CKD stage 3, CAD s/p 3 vessel CABG, Afib on xarelto, HTN, HLD, DM admitted for acute infarct of posterior left MCA. Currently on empiric antibiotics due to meeting sepsis criteria. Discharge Planning Unclear timetable at this time PT- return to SNF at [facility]- patient will require speech therapy after discharge OT- OT at rehab, [facility] Problem List: (1) Pneumonia ICD Codes: J18.9 - Pneumonia Status: Acute Plan: Sputum culture grew MRSA and E. Coli. Possibly aspiration pneumonia ID consulted-appreciate recs. -D/c cipro/flagyl (06/07) -Started Cefepime (06-07 - ) -Continue Vancomycin (2) Mechanically assisted ventilation ICD Codes: Z99.11 - Mechanically assisted ventilation Status: Resolved Plan: Extubated 06/05, status post cardiac arrest and return of spontaneous circulation on 06/04. Reintubated 06/07 for respiratory distress. -Continue ICU management Radiological Health Specialist consulted-appreciate recs -On CPAP (3) Ischemic stroke ICD Codes: I63.9 - Cerebral infarction, unspecified Status: Acute Plan: Patient presented with aphasia and left-sided weakness and mild right- sided weakness upon arrival to ED. Brain MRI demonstrated increased signal in the posterior left MCA distribution on the diffusion of weighted images characteristic of an acute or subacute infarct. Currently no mass shift or evidence hemorrhage. Carotid US: moderate visble plaque in both carotid arteries, findings suggest at least a moderate stenosis. possible significant carotid disease, though not a good candidate for further imaging of the carotids at this point Neurology consulted, recs appreciated. -Continue aspirin 325 mg PO daily -Continue Xarelto 20mg PO daily -Physical therapy (4) Sepsis ICD Codes: A41.9 - Sepsis Status: Acute Plan: ID consulted-appreciate recs Continue Vancomycin 1500 mg IV, pharmacy consulted for renal dosage, appreciate recs Cefepime as above (5) Congestive heart failure ICD Codes: I50.9 - Heart failure, unspecified Status: Chronic Plan: Echo form 03/14/17 demonstrated 35% ejection fraction CXR 06/01 revealed cardiomegaly and stable compared to CXR 05/22/17, which revealed slight blunting of the left costophrenic sulcus suggesting a small left pleural effusion CXR 06/01 demonstrated moderate pulmonary vascular congestion Echo 06/01: mildly dilated LV, EF 25%, mild to moderate aortic sclerosis Echo 06/04: EF 20% -Lasix 20mg PO BID -Monitor HR and BP -Coreg 3.125mg BID (6) Chronic kidney disease, stage 3 ICD Codes: N18.3 - Chronic kidney disease, stage 3 (moderate) Plan: Baseline Cr. 1.3-1.5; Stable around 1.4-1.6 -Continue to monitor -Nephrology consulted, recs appreciated -Avoid nephrotoxins -Follow I/O (7) Rhabdomyolysis ICD Codes: M62.82 - Rhabdomyolysis Plan: Elevated creatine kinase 2533 most likely due to tremors, decreased to 1397 Improving NS 125mls/hr Continue to monitor Nephrology consulted, appreciate recs (8) Atrial fibrillation ICD Codes: I48.91 - Atrial fibrillation Status: Chronic Plan: -Xarelto 20mg PO daily (9) Hypertension ICD Codes: I10 - Hypertension Status: Chronic Plan: -Continue home meds: Coreg 6.25 mg PO q12 Losartan 50mg PO daily (10) Neurogenic bladder ICD Codes: N31.9 - Neuromuscular dysfunction of bladder, unspecified Plan: Neurogenic bladder due to stroke -Conde catheter placed (11) Hyperlipidemia ICD Codes: E78.5 - Hyperlipidemia Status: Chronic Plan: -Continue Atorvastatin 40mg PO HS (12) Hypothyroidism ICD Codes: E03.9 - Hypothyroidism, unspecified Status: Chronic Plan: -Continue Levothyroxine 112mcg PO daily (13) Diabetes ICD Codes: E11.9 - Diabetes Status: Chronic Plan: -Low dose SS -Held home insulin (14) Nutrition, metabolism, and development symptoms ICD Codes: R63.8 - Other symptoms and signs concerning food and fluid intake Status: Acute Plan: Fluids: none due to CHF Diet: Tube feeds Electrolytes: monitor and replace as needed DVT ppx: Xarelto, SCDs Problem Qualifiers (1) Pneumonia: Qualified Codes: J15.212 - Pneumonia due to methicillin resistant Staphylococcus aureus (2) Congestive heart failure: Qualified Codes: I50.9 - Heart failure, unspecified (3) Atrial fibrillation: Qualified Codes: I48.2 - Chronic atrial fibrillation (4) Hypertension: Qualified Codes: I10 - Essential (primary) hypertension Jermaine Bell MD R1 Jun 09, 2017 10:13
--- NOTE | 2017-06-09 11:13 | HHI.NPPN ---
Subjective General Problems: Anemia, Edema, Hypertension Renal Failure: Chronic, Acute, Stage III History of Present Illness 67-year-old male with a past medical history of ischemic heart disease, congestive heart failure, chronic kidney disease, atrial fibrillation, chronic anemia, diabetes mellitus, hypothyroidism, and peripheral vascular disease who was admitted with a complaint of worsening shortness of breath. I was called to see the patient because of elevated BUN and creatinine. The patient has known history of chronic kidney disease and his baseline creatinine seems to be in the range of 1.3-1.5 most of the time. Additional Remarks Patient remain intubated and sedated, now on CPAP. Objective Data Data Vital Signs Date Time Temp Pulse Resp B/P (MAP) Pulse Ox O2 Delivery O2 Flow Rate FiO2 06/09/17 11:00 100 40 06/09/17 07:29 40 06/09/17 07:29 100 40 06/09/17 06:00 61 06/09/17 04:00 102 06/09/17 04:00 40 06/09/17 04:00 101.1 102 18 142/62 (88) 98 06/09/17 03:20 99 40 06/09/17 02:00 97 06/09/17 00:00 100.1 91 129/60 (83) 100 06/09/17 00:00 40 06/09/17 00:00 91 06/08/17 22:03 100 40 06/08/17 22:00 88 06/08/17 20:00 83 06/08/17 20:00 99.5 83 14 110/54 (72) 99 06/08/17 20:00 40 06/08/17 19:12 100 Ventilator 40 06/08/17 19:12 100 40 06/08/17 18:21 17 06/08/17 18:00 84 06/08/17 16:16 100 40 06/08/17 16:00 80 06/08/17 16:00 80 16 145/64 (91) 100 06/08/17 16:00 40 06/08/17 15:30 80 143/65 (91) 100 06/08/17 15:00 80 129/58 (81) 97 06/08/17 14:31 85 147/63 (91) 99 06/08/17 14:01 90 162/67 (98) 98 06/08/17 14:00 91 06/08/17 14:00 91 06/08/17 13:31 92 156/85 (108) 06/08/17 13:00 91 155/65 (95) 98 06/08/17 12:31 95 22 156/67 (96) 95 06/08/17 12:00 87 06/08/17 12:00 40 06/08/17 12:00 98.8 87 17 120/94 (103) 100 06/08/17 11:30 80 20 130/71 (90) -: 06/09/17 0417 06/09/17 0417 Physical Exam General Appearance Remarks Intubated and sedated. Eyes Eye Exam: Pupils Equal Throat Throat Exam: Oral Mucosa Booth & Moist Neck Neck Exam: Neck Supple Pulmonary Resp Exam: Breath Sounds Equal, No Distress, Rhonchi, Decreased Bases Cardiology CV Exam: Regular, Normal Sinus Rhythm Gastrointestinal/Abdomen GI Exam: Soft, Non-Tender, Bowel Sounds Present Extremeties Extremities Exam: Trace Edema (Bilateral scalling and dryness of skin, in lower leg.) Neurologic Neuro Exam: Sedated Assessment/Plan Assessment Summary: KATERIN/Acute Renal Failure, Hypertension, CKD Stage III Problem List: (1) Acute kidney injury ICD Codes: N17.9 - Acute kidney failure, unspecified (2) Altered mental status ICD Codes: R41.82 - Altered mental status Status: Acute (3) Hx of deep venous thrombosis ICD Codes: Z86.718 - History of deep venous thrombosis Status: Chronic (4) CHF (congestive heart failure) ICD Codes: I50.9 - Congestive heart failure Status: Resolved (5) Diabetes ICD Codes: E11.9 - Diabetes Status: Chronic (6) Hypothyroidism ICD Codes: E03.9 - Hypothyroidism, unspecified Status: Chronic (7) Hypertension ICD Codes: I10 - Hypertension Status: Chronic (8) Chronic kidney disease, stage 3 ICD Codes: N18.3 - Chronic kidney disease, stage 3 (moderate) (9) Rhabdomyolysis ICD Codes: M62.82 - Rhabdomyolysis Plan Patient has been non oliguric. Has chronic kidney disease with baseline Creatinine 1.3-1.5. Most likely has chronic kidney disease due to Hypertensive or renovascular disease. Now develop KATERIN, possibly due to Rhabdo. or Obstructive uropathy. Develop cardiac arrest and intubated. BP is now stable, Urine out put is adequate. Creatinine is now improving, and it is 1.4. Urine out put is good, on Lasix, follow the urine out put and BMP. Weaning as per CCM. Hgb. is low, possible transfusion. Problem Qualifiers (1) Hypertension: Qualified Codes: I10 - Essential (primary) hypertension Sunita Martin MD Jun 09, 2017 11:13
[2017-06-09] MEDS: VANCOMYCIN INJ 1,500 MG in SODIUM CHLORID 0.9% 500 ML INJ 500 ML IV SCH (15:00)
[2017-06-09] MEDS: PANTOPRAZOLE SODIUM 40 MG VIAL IV PUSH SCH (16:45)
--- NOTE | 2017-06-09 16:53 | HHI.PR ---
Addendum to Inpatient Note Addendum Reason: Additional Documentation Additional Information According to court documents in the back of the physical chart [facility] is defined as the Public Guardian of the patient. I spoke with Fernanda Bryant, Senior [employer] of Guardianship and Client Services, to clarify the patient's current DNR status. She stated that at this time, as a ambulatory service representative of [facility] and on behalf of . Jensen Connors, she believes it would be in the patient's best interest to have his code status as DNR/DNI. The paperwork has been filled out and currently awaits her signature. A message was left at the number she was previously contacted at today ([phone]) indicating the need for her signature at her earliest convenience. Jermaine Bell MD R1 Jun 09, 2017 16:53
--- NOTE | 2017-06-09 17:35 | HHI.IDPN ---
Subjective Subjective Remarks doing OK again fever up to 101 m,ore alert Antibiotics vanco CFTX Allergies: Coded Allergies: Iodinated Contrast- Oral and IV Dye (Verified Allergy, Severe, Anaphylaxis , 05/29/17) acetaminophen (Unverified Allergy, Severe, "LIVER PROBLEMS", 05/29/17) diatrizoate meglumine (Unverified Allergy, Severe, Anaphylaxis, 05/29/17) gadobenic acid (Unverified Allergy, Severe, Anaphylaxis, 05/29/17) gadodiamide (Unverified Allergy, Severe, Anaphylaxis, 05/29/17) gadoteridol (Unverified Allergy, Severe, Anaphylaxis, 05/29/17) iodixanol (Unverified Allergy, Severe, Anaphylaxis, 05/29/17) iohexol (Unverified Allergy, Severe, Anaphylaxis, 05/29/17) penicillin G (Unverified Allergy, Severe, "HOT THROAT", 05/29/17) Uncoded Allergies: RADIOISOTOPES (Allergy, Severe, 09/27/13) UNKONWN RXN, LISTED ON PATIENT PAPERWORK FROM [facility]. Objective . Vital Signs Date Time Temp Pulse Resp B/P (MAP) Pulse Ox O2 Delivery O2 Flow Rate FiO2 06/09/17 17:00 79 144/60 (88) 100 06/09/17 16:00 40 06/09/17 16:00 78 124/58 (80) 100 06/09/17 15:05 100 40 06/09/17 15:01 76 122/58 (79) 100 06/09/17 14:00 73 108/54 (72) 100 06/09/17 14:00 73 06/09/17 13:00 76 06/09/17 13:00 76 123/57 (79) 100 06/09/17 12:01 77 06/09/17 12:01 77 134/53 (80) 100 06/09/17 12:00 75 100 06/09/17 12:00 75 06/09/17 12:00 40 06/09/17 11:00 100 40 06/09/17 11:00 82 06/09/17 11:00 82 114/58 (76) 100 06/09/17 10:01 76 109/53 (71) 100 06/09/17 10:01 76 06/09/17 10:00 76 100 06/09/17 10:00 76 06/09/17 09:01 79 133/60 (84) 100 06/09/17 09:01 79 06/09/17 08:01 83 122/56 (78) 100 06/09/17 08:01 83 06/09/17 08:00 40 06/09/17 08:00 81 06/09/17 08:00 81 100 06/09/17 07:29 40 06/09/17 07:29 100 40 06/09/17 06:00 61 06/09/17 04:00 102 06/09/17 04:00 40 06/09/17 04:00 101.1 102 18 142/62 (88) 98 06/09/17 03:20 99 40 06/09/17 02:00 97 06/09/17 00:00 100.1 91 129/60 (83) 100 06/09/17 00:00 40 06/09/17 00:00 91 06/08/17 22:03 100 40 06/08/17 22:00 88 06/08/17 20:00 83 06/08/17 20:00 99.5 83 14 110/54 (72) 99 06/08/17 20:00 40 06/08/17 19:12 100 Ventilator 40 06/08/17 19:12 100 40 06/08/17 18:21 17 06/08/17 18:00 84 06/09/17 06/09/17 06/10/17 15:00 23:00 07:00 Intake Total 1200 ml Balance 1200 ml Packed Cells 400 ml Blood Product IV Normal Saline Flush 800 ml . Laboratory Tests Test 06/08/17 04:36 06/08/17 11:50 06/09/17 04:17 White Blood Count 13.0 TH/MM3 11.8 TH/MM3 Red Blood Count 2.97 MIL/MM3 2.79 MIL/MM3 Hemoglobin 7.6 GM/DL 8.0 GM/DL 7.2 GM/DL Hematocrit 24.4 % 24.2 % 22.8 % Mean Corpuscular Volume 82.3 FL 81.9 FL Mean Corpuscular Hemoglobin 25.7 PG 26.0 PG Mean Corpuscular Hemoglobin Concent 31.2 % 31.7 % Red Cell Distribution Width 18.9 % 19.1 % Platelet Count 334 TH/MM3 375 TH/MM3 Mean Platelet Volume 8.0 FL 7.9 FL Neutrophils (%) (Auto) 82.5 % 79.1 % Lymphocytes (%) (Auto) 6.4 % 8.5 % Monocytes (%) (Auto) 8.5 % 8.6 % Eosinophils (%) (Auto) 2.2 % 3.2 % Basophils (%) (Auto) 0.4 % 0.6 % Neutrophils # (Auto) 10.7 TH/MM3 9.3 TH/MM3 Lymphocytes # (Auto) 0.8 TH/MM3 1.0 TH/MM3 Monocytes # (Auto) 1.1 TH/MM3 1.0 TH/MM3 Eosinophils # (Auto) 0.3 TH/MM3 0.4 TH/MM3 Basophils # (Auto) 0.0 TH/MM3 0.1 TH/MM3 CBC Comment DIFF FINAL AUTO DIFF Differential Comment FINAL DIFF MANUAL Differential Total Cells Counted 100 Neutrophils % (Manual) 74 % Band Neutrophils % 3 % Lymphocytes % 7 % Monocytes % 12 % Eosinophils % 3 % Neutrophils # (Manual) 9.2 TH/MM3 Metamyelocytes 1 % Platelet Estimate NORMAL Platelet Morphology Comment NORMAL Laboratory Tests Test 06/08/17 04:36 06/09/17 04:17 Blood Urea Nitrogen 28 MG/DL 29 MG/DL Creatinine 1.55 MG/DL 1.42 MG/DL Random Glucose 160 MG/DL 173 MG/DL Total Protein 5.4 GM/DL 5.8 GM/DL Albumin 1.6 GM/DL Calcium Level 7.4 MG/DL 7.4 MG/DL Alkaline Phosphatase 91 U/L Aspartate Amino Transf (AST/SGOT) 30 U/L Alanine Aminotransferase (ALT/SGPT) 27 U/L Total Bilirubin 0.3 MG/DL Sodium Level 148 MEQ/L 148 MEQ/L Potassium Level 3.8 MEQ/L 4.0 MEQ/L Chloride Level 112 MEQ/L 111 MEQ/L Carbon Dioxide Level 29.2 MEQ/L 29.1 MEQ/L Anion Gap 7 MEQ/L 8 MEQ/L Estimat Glomerular Filtration Rate 45 ML/MIN 49 ML/MIN Protein Corrected Calcium 8.3 MG/DL 8.1 MG/DL Microbiology Date/Time Source Procedure Growth Status 06/07/17 11:30 Sputum Expectorated Sputum Gram Stain - Final Complete 06/07/17 11:30 Sputum Culture - Final S. Aureus Mrsa Complete Imaging Last Impressions Chest X-Ray 06/07/17 0000 Signed Impressions: Service Date/Time: Wednesday, June 07, 2017 07:19 - CONCLUSION: ET tube in good position. Juan Carvalho MD FACR Abdomen X-Ray 06/05/17 0000 Signed Impressions: Service Date/Time: May 07:39 - CONCLUSION: Normal examination. The nasogastric is within the proximal stomach Desmond Hudson MD Head CT 06/04/17 0000 Signed Impressions: Service Date/Time: May 04:33 - CONCLUSION: 1. No acute intracranial abnormality seen. 2. Mild atrophy. 3. Persistent increased density within the right globe. Ap Quigley MD Head Magnetic Resonance Angiography 05/29/17 Signed Impressions: Service Date/Time: May 18:31 - CONCLUSION: 1. Suboptimal exam degraded by motion as above. No definite occlusive disease. Nilson Jeffries MD Carotid Artery Ultrasound 05/29/17 Signed Impressions: Service Date/Time: May 19:47 - CONCLUSION: Moderate visible plaque in both carotid arteries. Findings suggest at least a moderate stenosis. This would be better evaluated with CTA carotids. Nilson Jeffries MD Brain MRI 05/29/17 0000 Signed Impressions: Service Date/Time: May 18:31 - CONCLUSION: 1. There is increased signal in the posterior left MCA distribution on the diffusion weighted images characteristic of an acute or subacute infarct. Currently no mass shift or evidence for hemorrhage. Nilson Jeffries MD Abdomen/Pelvis CT 05/29/17 0000 Signed Impressions: Service Date/Time: May 18:10 - CONCLUSION: 1. No acute finding on CT abdomen and pelvis. 2. Calcified gallstones. 3. There is a small hiatal hernia. Distended bladder. 4. 2.3 cm lesion lower pole right kidney not clearly a cyst. Recommend renal ultrasound to assess for cyst versus solid mass. Nilson Jeffries MD Physical Exam CONSTITUTIONAL/GENERAL: This is an adequately nourished patient, in no apparent distress. intubated, on vent TUBES/LINES/DRAINS: R SCV TLC SKIN: No jaundice, rashes, or lesions. Skin temperature appropriate. Not diaphoretic. CARDIOVASCULAR: Regular rate and rhythm without murmurs, gallops, or rubs. No JVD. Peripheral pulses symmetric. RESPIRATORY/CHEST: Symmetric, unlabored respirations. Clear to auscultation. Breath sounds equal bilaterally. No wheezes, rales, or rhonchi. GASTROINTESTINAL: Abdomen soft, non-tender, nondistended. No hepato-splenomegaly , or palpable masses. No guarding. Bowel sounds present. GENITOURINARY: Without palpable bladder distension. Conde catheter in place with clear urine MUSCULOSKELETAL: Extremities without clubbing, cyanosis, BLE with tree bark changes; no erythema No edema No joint tenderness or effusion noted. No calf tenderness. No mottling or clubbing. NEUROLOGICAL: awake, alert, communicating. Confused PSYCHIATRIC: somewhat agitated Assessment & Plan Remarks sp PEA sp stroke Fever, ? B/b PNA Pt having fever since admission New acute VDRF New fever MRSA PNA dc vanco, cefepime start zyvox po chk BC fu sputum clx dw Traci Hoff MD Jun 09, 2017 17:35
[2017-06-09] MEDS: LINEZOLID 600 MG TAB PO SCH (18:21)
[2017-06-09 18:55] LABS: HEMATOCRIT 24.9 % (39.0-51.0); HEMOGLOBIN 8.2 GM/DL (13.0-17.0); MEAN CELL VOLUME 83.3 FL (80.0-100.0); MEAN CORPUSCULAR HEMOGLOBIN 27.5 PG (27.0-34.0); MEAN PLATELET VOLUME 8.6 FL (7.0-11.0); PLATELET COUNT 398 TH/MM3 (150-450); RED BLOOD COUNT 2.98 MIL/MM3 (4.50-5.90); RED CELL DISTRIBUTION WIDTH 17.7 % (11.6-17.2); WHITE BLOOD COUNT 12.3 TH/MM3 (4.0-11.0)
[2017-06-09] MEDS: SODIUM CHLORIDE 0.9% FLUSH 10 ML FLUSH IV FLUSH PRN (20:16)
[2017-06-09] MEDS: ATORVASTATIN 40 MG TAB PO SCH (20:17)
[2017-06-10] VITALS (22 sets, daily range): BP systolic 94–120; BP diastolic 53–58; PULSE 63–82; RESP 24; TEMP 98.8–101.4; O2SAT 92–100
[2017-06-10] MEDS: PROPOFOL 1000 MG/100 ML INJ 100 ML IV PRN ×7 (00:29→21:32)
[2017-06-10] MEDS: RESP: ALBUTEROL 2.5 MG/IPRATROPIUM 0.5 MG NEB (SCH) NEB ×5 (03:15→19:25)
[2017-06-10 04:26] LABS: AUTOMATED NEUTROPHIL # 10.7 TH/MM3 (1.8-7.7); BASOPHIL # 0.1 TH/MM3 (0-0.2); BASOPHIL % 0.9 % (0.0-2.0); EOSINOPHIL # 0.4 TH/MM3 (0-0.4); EOSINOPHIL % 3.4 % (0.0-4.0); HEMATOCRIT 25.6 % (39.0-51.0); HEMOGLOBIN 8.5 GM/DL (13.0-17.0); LYMPH % 7.1 % (9.0-44.0); LYMPHOCYTE # 0.9 TH/MM3 (1.0-4.8); MEAN CELL VOLUME 82.6 FL (80.0-100.0); MEAN CORPUSCULAR HEMOGLOBIN 27.5 PG (27.0-34.0); MEAN CORPUSCULAR HGB CONC 33.3 % (32.0-36.0); MEAN PLATELET VOLUME 8.6 FL (7.0-11.0); MONO % 7.8 % (0.0-8.0); NEUT % 80.8 % (16.0-70.0); PLATELET COUNT 434 TH/MM3 (150-450); RED CELL DISTRIBUTION WIDTH 18.4 % (11.6-17.2); WHITE BLOOD COUNT 13.3 TH/MM3 (4.0-11.0)
[2017-06-10 04:36] LABS: ALBUMIN 1.5 GM/DL (3.4-5.0); AST (GOT) 42 U/L (15-37); BICARBONATE 30.1 MEQ/L (21.0-32.0); BLOOD UREA NITROGEN 26 MG/DL (7-18); CALCIUM 7.5 MG/DL (8.5-10.1); CHLORIDE 112 MEQ/L (98-107); CREATININE 1.25 MG/DL (0.60-1.30); GLOMERULAR FILTRATION RATE 57 ML/MIN (>89); GLUCOSE,RANDOM 168 MG/DL (74-106); SODIUM (NA) 148 MEQ/L (136-145)
[2017-06-10 04:39] LABS: ALKALINE PHOSPHATASE 95 U/L (45-117); ALT (GPT) 30 U/L (12-78); TOTAL BILIRUBIN ADULT 0.3 MG/DL (0.2-1.0)
[2017-06-10] MEDS: LEVOTHYROXINE SODIUM 112 MCG TAB PO SCH (05:01)
[2017-06-10] MEDS: LINEZOLID 600 MG TAB PO SCH ×2 (05:01→17:49)
[2017-06-10] MEDS: LEVOTHYROXINE SODIUM 25 MCG TAB PO SCH (05:01)
[2017-06-10] MEDS: FREE WATER G-TUBE SCH ×3 (05:01→22:00)
[2017-06-10] MEDS: INSULIN ASPART SUPPLEMENTAL SCALE SQ SCH ×4 (06:00→17:06)
[2017-06-10] MEDS: CHLORHEXIDINE 0.12% (ORAL KIT) 15 ML CUP MT SCH ×2 (08:00→21:18)
[2017-06-10] MEDS: DOCUSATE SODIUM 50 MG/SENNA 8.6 MG TAB PO SCH ×2 (09:00→21:17)
[2017-06-10] MEDS: ASPIRIN 325 MG TAB PO SCH (09:00)
[2017-06-10] MEDS: FUROSEMIDE 40 MG/4 ML VIAL IV PUSH SCH ×2 (09:14→17:49)
[2017-06-10] MEDS: RIVAROXABAN 20 MG TAB PO SCH (09:15)
[2017-06-10] MEDS: CARVEDILOL 3.125 MG TAB PO SCH ×2 (09:15→21:17)
[2017-06-10] MEDS: prednisoLONE ACETATE 1% OPHT SUSP 5 ML BTL RIGHT EYE SCH ×2 (09:16→21:17)
[2017-06-10] MEDS: CARBAMIDE PEROXIDE 6.5% OTIC SOLN 15 ML BTL EACH EAR SCH (09:16)
--- NOTE | 2017-06-10 10:04 | HHI.FPPN ---
Subjective Remarks Seen and examined this morning. Sedated on 45 g propofol. Currently intubated on A/C PEEP 5, FiO2 35%, RR 14. Nursing staff reports the patient's guardian has signed his DNR. No acute events overnight. Objective Vitals Vital Signs Date Time Temp Pulse Resp B/P (MAP) Pulse Ox O2 Delivery O2 Flow Rate FiO2 06/10/17 08:11 100 35 06/10/17 08:00 72 06/10/17 08:00 35 06/10/17 08:00 99.0 74 115/58 (77) 98 06/10/17 07:59 35 06/10/17 07:59 98 35 06/10/17 06:00 68 06/10/17 04:09 97 35 06/10/17 04:00 99.0 70 119/56 (77) 96 06/10/17 04:00 35 06/10/17 04:00 69 06/10/17 03:00 66 97 06/10/17 02:12 74 118/57 (77) 06/10/17 02:00 79 06/10/17 02:00 79 06/10/17 02:00 70 06/10/17 01:02 98 35 06/10/17 01:00 71 120/53 (75) 100 06/10/17 01:00 71 120/53 (75) 100 06/10/17 00:00 98.9 66 116/57 (76) 100 06/10/17 00:00 35 06/10/17 00:00 63 06/09/17 23:00 67 112/53 (72) 100 06/09/17 22:14 100 40 06/09/17 22:00 70 114/58 (76) 100 06/09/17 22:00 68 06/09/17 21:00 78 129/60 (83) 100 06/09/17 20:00 40 06/09/17 20:00 73 06/09/17 20:00 99.0 72 100 06/09/17 19:10 100 40 06/09/17 18:01 76 06/09/17 18:00 75 06/09/17 17:00 79 144/60 (88) 100 06/09/17 17:00 79 06/09/17 16:00 40 06/09/17 16:00 78 124/58 (80) 100 06/09/17 16:00 78 06/09/17 15:05 100 40 06/09/17 15:01 76 122/58 (79) 100 06/09/17 14:00 73 108/54 (72) 100 06/09/17 14:00 73 06/09/17 13:00 76 06/09/17 13:00 76 123/57 (79) 100 06/09/17 12:01 77 06/09/17 12:01 77 134/53 (80) 100 06/09/17 12:00 75 100 06/09/17 12:00 75 06/09/17 12:00 40 06/09/17 11:00 100 40 06/09/17 11:00 82 06/09/17 11:00 82 114/58 (76) 100 06/09/17 10:01 76 109/53 (71) 100 06/09/17 10:01 76 06/09/17 10:00 76 100 06/09/17 10:00 76 I/O 06/09/17 06/09/17 06/09/17 06/10/17 06/10/17 06/10/17 07:00 15:00 23:00 07:00 15:00 23:00 Intake Total 1101 ml 1450 ml 849 ml 1268 ml Output Total 475 ml 950 ml 700 ml Balance 626 ml 1450 ml -101 ml 568 ml Intake Oral 0 ml IV Total 51 ml 250 ml 515 ml 433 ml Tube Feeding 450 ml 334 ml 335 ml Packed Cells 400 ml Blood Product IV Normal Saline Flush 800 ml Tube Irrigant 600 ml Other 500 ml Output Urine Total 475 ml 950 ml 700 ml # Bowel Movements 3 2 Result Diagram: 06/10/1734906/10/17349 Objective Remarks GENERAL: elderly man, intubated, laying in bed, sedated SKIN: scaling and dryness of right and left leg EYES: legally blind, yellow crusting of both eyes ENT: dental caries, dry crusting of lips CARDIOVASCULAR: Regular rate and rhythm RESPIRATORY: decreased breath sounds in b/l bases. Coarse breath sounds throughout. 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 A/P Assessment and Plan 67 year old male with CHF (EF 35%), HTN, CKD stage 3, CAD s/p 3 vessel CABG, Afib on xarelto, HTN, HLD, DM admitted for acute infarct of posterior left MCA. Currently on empiric antibiotics due to meeting sepsis criteria. Discharge Planning Unclear timetable at this time PT- return to SNF at [facility] ST- patient will require speech therapy after discharge OT- OT at rehab, [facility] Problem List: (1) Pneumonia ICD Codes: J18.9 - Pneumonia Status: Acute Plan: Sputum culture grew MRSA and E. Coli. Possibly aspiration pneumonia ID consulted-appreciate recs. -Linezolid 600 mg Q12 ABx history - cipro/flagyl (06/07) -Started Cefepime (06-07 - 06/10 ) -Continue Vancomycin (06/04 - 06/09) (2) Mechanically assisted ventilation ICD Codes: Z99.11 - Mechanically assisted ventilation Status: Resolved Plan: Extubated 06/05, status post cardiac arrest and return of spontaneous circulation on 06/04. Reintubated 06/07 for respiratory distress. -Continue ICU management Home Lending Officer consulted-appreciate recs -On A/C (3) Ischemic stroke ICD Codes: I63.9 - Cerebral infarction, unspecified Status: Acute Plan: Patient presented with aphasia and left-sided weakness and mild right- sided weakness upon arrival to ED. Brain MRI demonstrated increased signal in the posterior left MCA distribution on the diffusion of weighted images characteristic of an acute or subacute infarct. Currently no mass shift or evidence hemorrhage. Carotid US: moderate visble plaque in both carotid arteries, findings suggest at least a moderate stenosis. possible significant carotid disease, though not a good candidate for further imaging of the carotids at this point Neurology consulted, recs appreciated. -Continue aspirin 325 mg PO daily -Continue Xarelto 20mg PO daily -Physical therapy (4) Sepsis ICD Codes: A41.9 - Sepsis Status: Acute Plan: ID consulted-appreciate recs -Abx per ID as above (5) Congestive heart failure ICD Codes: I50.9 - Heart failure, unspecified Status: Chronic Plan: Echo form 03/14/17 demonstrated 35% ejection fraction CXR 06/01 revealed cardiomegaly and stable compared to CXR 05/22/17, which revealed slight blunting of the left costophrenic sulcus suggesting a small left pleural effusion CXR 06/01 demonstrated moderate pulmonary vascular congestion Echo 06/01: mildly dilated LV, EF 25%, mild to moderate aortic sclerosis Echo 06/04: EF 20% -Lasix 20mg PO BID -Monitor HR and BP -Coreg 3.125mg BID (6) Chronic kidney disease, stage 3 ICD Codes: N18.3 - Chronic kidney disease, stage 3 (moderate) Plan: Baseline Cr. 1.3-1.5; Stable around 1.4-1.6 -Continue to monitor -Nephrology consulted, recs appreciated -Avoid nephrotoxins -Follow I/O (7) Rhabdomyolysis ICD Codes: M62.82 - Rhabdomyolysis Plan: Elevated creatine kinase 2533 most likely due to tremors, decreased to 1397 Improving NS 125mls/hr Continue to monitor Nephrology consulted, appreciate recs (8) Atrial fibrillation ICD Codes: I48.91 - Atrial fibrillation Status: Chronic Plan: -Xarelto 20mg PO daily (9) Hypertension ICD Codes: I10 - Hypertension Status: Chronic Plan: -Continue home meds: Coreg 6.25 mg PO q12 Losartan 50mg PO daily (10) Neurogenic bladder ICD Codes: N31.9 - Neuromuscular dysfunction of bladder, unspecified Plan: Neurogenic bladder due to stroke -Conde catheter placed (11) Hyperlipidemia ICD Codes: E78.5 - Hyperlipidemia Status: Chronic Plan: -Continue Atorvastatin 40mg PO HS (12) Hypothyroidism ICD Codes: E03.9 - Hypothyroidism, unspecified Status: Chronic Plan: -Continue Levothyroxine 112mcg PO daily (13) Diabetes ICD Codes: E11.9 - Diabetes Status: Chronic Plan: -Low dose SS -Held home insulin (14) Nutrition, metabolism, and development symptoms ICD Codes: R63.8 - Other symptoms and signs concerning food and fluid intake Status: Acute Plan: Fluids: none due to CHF Diet: Tube feeds Electrolytes: monitor and replace as needed DVT ppx: Xarelto, SCDs Problem Qualifiers (1) Pneumonia: Qualified Codes: J15.212 - Pneumonia due to methicillin resistant Staphylococcus aureus (2) Congestive heart failure: Qualified Codes: I50.9 - Heart failure, unspecified (3) Atrial fibrillation: Qualified Codes: I48.2 - Chronic atrial fibrillation (4) Hypertension: Qualified Codes: I10 - Essential (primary) hypertension Jermaine Bell MD R1 Jun 10, 2017 10:04
--- NOTE | 2017-06-10 11:13 | HHI.CCPN ---
Subjective Remarks/Hospital Course Patient is a 67-year-old white male was admitted to the [facility] service on 05/30/17 with acute left MCA stroke with right hemiparesis. He has a past medical history significant for CHF with ejection fraction 25% (echo 06/01), Atrial fibrillation on Xarelto, chronic kidney disease stage III, rhabdomyolysis , Hypertension, Anemia, Hyperlipidemia, Diabetes Mellitus and Hypothyroidism. Apparently patient was in his regular state of health, improving right hemiparesis today am. A code blue was called overhead after the patient was found on the bed unresponsive and pulseless, which I responded immediately. CPR was started. See Code sheet for details-rhythm was pea with A. fib. Patient received 2 amp epinephrine, 1amp of bicarb. CPR continued and after total 5 min there was return of spontaneous circulation. I intubated patient during code, after return of spontaneous circulation. Patient was quickly moved to the ICU where resuscitation was continued with IV fluids boluses. I placed a right femoral arterial line for invasive cardiac/hemodynamic monitoring. As the blood pressure was trending down to low 90s systolic patient was started on Levophed infusion. I also placed a right subclavian central line. Patient remained in atrial fibrillation but blood pressure improved with map consistently above 65 with fluid resuscitation and Levophed infusion. I discussed with patient's guardian, who wants patient to be DNR, but wants to continue aggressive treatment. CT of the head is pending at this time. PE is unlikely as the patient had been on Xarelto for anticoagulation SUBJ 06/05/17: Intubated currently off sedation. Remains encephalopathic, sodium 150. Restart Lasix. Did not tolerate weaning trial due to apnea. Stat echo shows EF 20% 06/06 Reconsult: Rylie was called on floor for resp distress on arrival to [facility] patient was tachycardic, tachypneic and hypoxic with sats 80's on NRB. He was subsequently intubated and placed on mechanical ventilation. Patient was given Lasix 40mg IV. 06/08 Patient remains sedated and intubated. Afebrile. Renal function is improving with Cr: 1.55 today from 1.93 06/09: Remains sedated, orally intubated on mechanical ventilation. Hemoglobin 7.2 this morning. No melena or rectal bleeding overnight per discussion with RN 06/10: Remains sedated, orally intubated on mechanical ventilation. Received 1 unit PRBCs yesterday. Objective Vital Signs Date Time Temp Pulse Resp B/P (MAP) Pulse Ox O2 Delivery O2 Flow Rate FiO2 06/10/17 08:11 100 35 06/10/17 08:00 72 06/10/17 08:00 99.0 115/58 (77) 06/09/17 04:00 18 06/08/17 19:12 Ventilator 06/07/17 06:25 15.00 Intake and Output 06/10/17 06/10/17 06/11/17 08:00 16:00 00:00 Intake Total 1268 ml Output Total 700 ml Balance 568 ml Result Diagram: 06/10/17 0350 06/10/17 0350 Other Results Microbiology Date/Time Source Procedure Growth Status 06/07/17 11:30 Sputum Expectorated Sputum Gram Stain - Final Complete 06/07/17 11:30 Sputum Culture - Final S. Aureus Mrsa Complete Imaging Last Impressions Chest X-Ray 06/07/17 0000 Signed Impressions: Service Date/Time: Wednesday, June 07, 2017 07:19 - CONCLUSION: ET tube in good position. Juna Carvalho MD FACR Abdomen X-Ray 06/05/17 0000 Signed Impressions: Service Date/Time: May 07:39 - CONCLUSION: Normal examination. The nasogastric is within the proximal stomach Desmond Hudson MD Head CT 06/04/17 0000 Signed Impressions: Service Date/Time: May 04:33 - CONCLUSION: 1. No acute intracranial abnormality seen. 2. Mild atrophy. 3. Persistent increased density within the right globe. Ap Quigley MD Head Magnetic Resonance Angiography 05/29/17 0000 Signed Impressions: Service Date/Time: May 18:31 - CONCLUSION: 1. Suboptimal exam degraded by motion as above. No definite occlusive disease. Nilson Jeffries MD Carotid Artery Ultrasound 05/29/17 0000 Signed Impressions: Service Date/Time: May 19:47 - CONCLUSION: Moderate visible plaque in both carotid arteries. Findings suggest at least a moderate stenosis. This would be better evaluated with CTA carotids. Nilson Jeffries MD Brain MRI 05/29/17 0000 Signed Impressions: Service Date/Time: May 18:31 - CONCLUSION: 1. There is increased signal in the posterior left MCA distribution on the diffusion weighted images characteristic of an acute or subacute infarct. Currently no mass shift or evidence for hemorrhage. Nilson Jeffries MD Abdomen/Pelvis CT 05/29/17 0000 Signed Impressions: Service Date/Time: May 18:10 - CONCLUSION: 1. No acute finding on CT abdomen and pelvis. 2. Calcified gallstones. 3. There is a small hiatal hernia. Distended bladder. 4. 2.3 cm lesion lower pole right kidney not clearly a cyst. Recommend renal ultrasound to assess for cyst versus solid mass. Nilson Jeffries MD Objective Remarks GENERAL: Elderly male lethargic, encephalopathic now intubated EYES: legally blind per previous notes ENT: Poor dentition. Dry oral mucosa. Orotracheally intubated CARDIOVASCULAR: Tachycardic,Irregular heart rate. Systolic murmur heard in all areas RESPIRATORY: Bilaterally equal breath sounds, diminished in the bases GASTROINTESTINAL: Protuberant abdomen, tympanic, improved with NG tube decompression MUSCULOSKELETAL: S/p right great toe and fifth toe amputation, Small ulcers on bilateral anterior fleming, Non stageable pressure ulcer on bilateral sole, eschar left lateral foot NEUROLOGICAL: Sedated, Intubated A/P Assessment and Plan NEURO: Metabolic encephalopathy Possible anoxic injury Status post left MCA stroke 6 days PHOTOGRAPHER PORTRAIT - Encephalopathy post code possible anoxic injury - CT of the head stat 06/04 -no acute changes, MRI 05/29 had show L MCA stroke - Diprivan infusion for sedation. Daily sedation vacation. RESP: Acute respiratory failure on mechanical ventilation - Continue with vent support keep sat >92% -Bronchodilators, ICU vent bundle. - SBT daily as farzad. CV: PEA arrest on 06/04 Cardiogenic shock-resolved Atrial fibrillation on chronic Xarelto Cardiomyopathy with EF 25% - Monitor HR and BP keep MAP>65mmHg - 2D Echo 06/01 with EF 25%. - IV Lasix 20 mg Q12 - Continue aspirin, Xarelto, Coreg 3.125mg BID. Not on Pk-I due to KATERIN GI: - IV Protonix - On tube feeds with Glucerna 1.5 with goal rate 45ml/hr : Chronic kidney disease - Monitor renal function, I/O's, electrolytes replacement as needed. -Renal is following- Dr. Martin. - Lasix 20mg IV BID -Place on Free water 250ml Q8 monitor sodium level. ID: -Pneumonia ( MRSA, E.coli) Sputum 06/04: MRSA, E.coli - Continue abx per ID ( Vanco, Cefepime stopped on 06/09). Started on Zyvox per ID HEME: - Monitor CBC, 1 unit PRBCs ordered for Hgb 7.2 on 06/09. ENDO: Hypothyroidism. - Sliding-scale insulin for glycemic control -Continue Synthroid. TSH: 1.2 PROPH: - Bilateral lower extremity SCDs. Continue Xarelto MSK: - Wound care consulted for bilateral sole pressure ulcer, eschar L lateral feet LINES: - Right subclavian central line placed 06/04/17 CODE STATUS DNR Level 3 Young Deluca MD Jun 10, 2017 11:13
--- NOTE | 2017-06-10 12:46 | HHI.IDPN ---
Note Infectious Disease Note ID COVERAGE for DR. Bello. Notes reviewed. Patient awakens and following simple commands. On the vent. Afebrile. Last fever yesterday am. Antibiotics Linezolid. Allergies: Coded Allergies: Iodinated Contrast- Oral and IV Dye (Verified Allergy, Severe, Anaphylaxis , 05/29/17) acetaminophen (Unverified Allergy, Severe, "LIVER PROBLEMS", 05/29/17) diatrizoate meglumine (Unverified Allergy, Severe, Anaphylaxis, 05/29/17) gadobenic acid (Unverified Allergy, Severe, Anaphylaxis, 05/29/17) gadodiamide (Unverified Allergy, Severe, Anaphylaxis, 05/29/17) gadoteridol (Unverified Allergy, Severe, Anaphylaxis, 05/29/17) iodixanol (Unverified Allergy, Severe, Anaphylaxis, 05/29/17) iohexol (Unverified Allergy, Severe, Anaphylaxis, 05/29/17) penicillin G (Unverified Allergy, Severe, "HOT THROAT", 05/29/17) Uncoded Allergies: RADIOISOTOPES (Allergy, Severe, 09/27/13) UNKONWN RXN, LISTED ON PATIENT PAPERWORK FROM [facility]. OBJECTIVE; Vital Signs Date Time Temp Pulse Resp B/P (MAP) Pulse Ox O2 Delivery O2 Flow Rate FiO2 06/10/17 12:00 92 35 06/10/17 08:11 100 35 06/10/17 08:00 72 06/10/17 08:00 35 06/10/17 08:00 99.0 74 115/58 (77) 98 06/10/17 07:59 35 06/10/17 07:59 98 35 06/10/17 06:00 68 06/10/17 04:09 97 35 06/10/17 04:00 99.0 70 119/56 (77) 96 06/10/17 04:00 35 06/10/17 04:00 69 06/10/17 03:00 66 97 06/10/17 02:12 74 118/57 (77) 06/10/17 02:00 79 06/10/17 02:00 79 06/10/17 02:00 70 06/10/17 01:02 98 35 06/10/17 01:00 71 120/53 (75) 100 06/10/17 01:00 71 120/53 (75) 100 06/10/17 00:00 98.9 66 116/57 (76) 100 06/10/17 00:00 35 06/10/17 00:00 63 06/09/17 23:00 67 112/53 (72) 100 06/09/17 22:14 100 40 06/09/17 22:00 70 114/58 (76) 100 06/09/17 22:00 68 06/09/17 21:00 78 129/60 (83) 100 06/09/17 20:00 40 06/09/17 20:00 73 06/09/17 20:00 99.0 72 100 06/09/17 19:10 100 40 06/09/17 18:01 76 06/09/17 18:00 75 06/09/17 17:00 79 144/60 (88) 100 06/09/17 17:00 79 06/09/17 16:00 40 06/09/17 16:00 78 124/58 (80) 100 06/09/17 16:00 78 06/09/17 15:05 100 40 06/09/17 15:01 76 122/58 (79) 100 06/09/17 14:00 73 108/54 (72) 100 06/09/17 14:00 73 06/09/17 13:00 76 06/09/17 13:00 76 123/57 (79) 100 Laboratory Tests Test 06/09/17 04:17 06/09/17 17:00 06/10/17 03:50 White Blood Count 11.8 TH/MM3 12.3 TH/MM3 13.3 TH/MM3 Red Blood Count 2.79 MIL/MM3 2.98 MIL/MM3 3.10 MIL/MM3 Hemoglobin 7.2 GM/DL 8.2 GM/DL 8.5 GM/DL Hematocrit 22.8 % 24.9 % 25.6 % Mean Corpuscular Volume 81.9 FL 83.3 FL 82.6 FL Mean Corpuscular Hemoglobin 26.0 PG 27.5 PG 27.5 PG Mean Corpuscular Hemoglobin Concent 31.7 % 33.0 % 33.3 % Red Cell Distribution Width 19.1 % 17.7 % 18.4 % Platelet Count 375 TH/MM3 398 TH/MM3 434 TH/MM3 Mean Platelet Volume 7.9 FL 8.6 FL 8.6 FL Neutrophils (%) (Auto) 79.1 % 80.8 % Lymphocytes (%) (Auto) 8.5 % 7.1 % Monocytes (%) (Auto) 8.6 % 7.8 % Eosinophils (%) (Auto) 3.2 % 3.4 % Basophils (%) (Auto) 0.6 % 0.9 % Neutrophils # (Auto) 9.3 TH/MM3 10.7 TH/MM3 Lymphocytes # (Auto) 1.0 TH/MM3 0.9 TH/MM3 Monocytes # (Auto) 1.0 TH/MM3 1.0 TH/MM3 Eosinophils # (Auto) 0.4 TH/MM3 0.4 TH/MM3 Basophils # (Auto) 0.1 TH/MM3 0.1 TH/MM3 CBC Comment AUTO DIFF AUTO DIFF Differential Total Cells Counted 100 Neutrophils % (Manual) 74 % Band Neutrophils % 3 % Lymphocytes % 7 % Monocytes % 12 % Eosinophils % 3 % Neutrophils # (Manual) 9.2 TH/MM3 Metamyelocytes 1 % Differential Comment FINAL DIFF MANUAL AUTO DIFF CONFIRMED Platelet Estimate NORMAL Platelet Morphology Comment NORMAL Laboratory Tests Test 06/09/17 04:17 06/10/17 03:50 Blood Urea Nitrogen 29 MG/DL 26 MG/DL Creatinine 1.42 MG/DL 1.25 MG/DL Random Glucose 173 MG/DL 168 MG/DL Total Protein 5.8 GM/DL 6.0 GM/DL Calcium Level 7.4 MG/DL 7.5 MG/DL Sodium Level 148 MEQ/L 148 MEQ/L Potassium Level 4.0 MEQ/L 3.7 MEQ/L Chloride Level 111 MEQ/L 112 MEQ/L Carbon Dioxide Level 29.1 MEQ/L 30.1 MEQ/L Anion Gap 8 MEQ/L 6 MEQ/L Estimat Glomerular Filtration Rate 49 ML/MIN 57 ML/MIN Protein Corrected Calcium 8.1 MG/DL Albumin 1.5 GM/DL Alkaline Phosphatase 95 U/L Aspartate Amino Transf (AST/SGOT) 42 U/L Alanine Aminotransferase (ALT/SGPT) 30 U/L Total Bilirubin 0.3 MG/DL Microbiology Date/Time Source Procedure Growth Status 06/07/17 11:30 Sputum Expectorated Sputum Gram Stain - Final Complete 06/07/17 11:30 Sputum Culture - Final S. Aureus Mrsa Complete Imaging Chest X-Ray 06/07/17 0000 Signed Impressions: Service Date/Time: Wednesday, June 07, 2017 07:19 - CONCLUSION: ET tube in good position. Juan Carvalho MD FACR Abdomen X-Ray 06/05/17 0000 Signed Impressions: Service Date/Time: May 07:39 - CONCLUSION: Normal examination. The nasogastric is within the proximal stomach Desmond Hudson MD Head CT 06/04/17 0000 Signed Impressions: Service Date/Time: May 04:33 - CONCLUSION: 1. No acute intracranial abnormality seen. 2. Mild atrophy. 3. Persistent increased density within the right globe. Ap Quigley MD Head Magnetic Resonance Angiography 05/29/17 0000 Signed Impressions: Service Date/Time: May 18:31 - CONCLUSION: 1. Suboptimal exam degraded by motion as above. No definite occlusive disease. Nilson Jeffries MD Carotid Artery Ultrasound 05/29/17 0000 Signed Impressions: Service Date/Time: May 19:47 - CONCLUSION: Moderate visible plaque in both carotid arteries. Findings suggest at least a moderate stenosis. This would be better evaluated with CTA carotids. Nilson Jeffries MD Brain MRI 05/29/17 0000 Signed Impressions: Service Date/Time: May 18:31 - CONCLUSION: 1. There is increased signal in the posterior left MCA distribution on the diffusion weighted images characteristic of an acute or subacute infarct. Currently no mass shift or evidence for hemorrhage. Nilson Jeffries MD Abdomen/Pelvis CT 05/29/17 0000 Signed Impressions: Service Date/Time: May 18:10 - CONCLUSION: 1. No acute finding on CT abdomen and pelvis. 2. Calcified gallstones. 3. There is a small hiatal hernia. Distended bladder. 4. 2.3 cm lesion lower pole right kidney not clearly a cyst. Recommend renal ultrasound to assess for cyst versus solid mass. Nilson Jeffries MD Physical Exam GENERAL: No acute distress. HEENT: head atraumatic, EOMI, No icterus. NECK: Supple. LUNGS: Basilar rhonchi. CARDIAC: Regular rate and rhythm. No murmurs. ABDOMEN: Obese, Soft, non tender. EXTREMITIES: No clubbing, cyanosis or edema. SKIN: No rash. IMPRESSION: sp PEA sp stroke Fever secondary to pneumonia. MRSA PNA New acute VDRF RECOMMEND: Continue zyvox po Follow clinical response. Chevy Melvin MD Jun 10, 2017 12:46
--- NOTE | 2017-06-10 13:09 | PD.CONS ---
Consult Service Palliative Care . Consult Requested By Dr. Bell . Primary Care Physician Alexis Aggarwal MD . Reason for Consultation a. To assist with evaluation and management of symptoms including: dyspnea, debility, dysphagia b. To assist medical decision maker(s) with: better understanding of current medical conditions; weighing benefits/burdens of medical treatment options; making medical treatment decisions. . HPI History of Present Illness Mr. Connors is a 67 year old with a complex medical history that includes CHF with an ejection fraction of approximately 35%, CAD s/p 3 vessel CABG, T2DM, HTN , CKD stage 3, atrial fibrillation on xarelto, history of OK, hyperlipidemia, COPD and mood disorder. He is a resident of [facility]. Mr. Connors presented to [facility] ED on 05/29/2017 with complaints of worsening shortness of breath. He was discharged on 05/24/17 earlier after being hospitalized with an acute CHF exacerbation. On exam, the patient was having difficulty speaking and appeared to have some left-sided weakness. He complained of a headache and abdominal pain. Per [facility] nursing report, the patient is alert and speaks clearly at baseline and able to self propel himself in his wheelchair. Nurse reported the patient had been acting "funny "earlier in the day and they were concerned the patient may have had a stroke. Brain MRI demonstrated increased signal in the posterior left MCA distribution on the diffusion of weighted images characteristic of an acute or subacute infarct. Currently no mass shift or evidence hemorrhage. Unable to establish time of onset, therefore the was likely outside of window for TPA and stroke precautions were ordered. Additional diagnostic data: * Vital signs: Pulse 86, respirations 16, BP 106/62, oxygen saturation 96% on 4 L via nasal cannula and oral temperature 98.6 * WBC: 12.7, hemoglobin 11.2, hematocrit 34.7, platelets 197, neutrophils 80.6% * Sodium: 144, potassium 4.6, chloride 106, carbon dioxide 30.1, glucose 129, calcium 9.0 * BUN: 51, creatinine 2.48, GFR 26 * Total bilirubin 0.4, AST 39, ALT 54 * Alkaline phosphatase: 93 * Total creatine kinase: 642 * CK-MB: 3.9 * Troponin: 0.09 * Total protein: 7.2, albumin 2.8 * EKG: Normal sinus rhythm, normal axis, nonspecific ST-T wave changes. Heart rate of 90 bpm. * CT abdomen/pelvis showed calcified gallstones, small hiatal hernia and distended bladder. A 2.3 cm lesion was seen in the lower pole right kidney with recommendations for renal ultrasound to assess for cyst versus solid mass. Patient met sepsis criteria with leukocytosis (WBC of 12.7), tachycardia (92), and low grade fever (100.5). He was started on Vancomycin, Cipro and Flagyl. Urine and blood cultures pending. Neurology and nephrology were consulted. Dr. Parker, neurology evaluated the patient. MRI of the brain was suggestive of an acute left middle cerebral artery infarct. The carotid ultrasound showed plaquing bilaterally suggesting moderate stenosis. The head MRA was graded due to motion. CT brain was negative; CTA showed no definite occlusive disease. Patient has a known history of chronic kidney disease. His baseline creatinine is 1.3 to 1.5; he came in with a creatinine of 2.4. KATERIN my be related to either obstructive uropathy, ATN or possibly rhabdomyolysis with increased CPK. Chest x-ray revealed stable cardiomegaly in comparison to previous chest x-ray 05/22/17, which revealed slight blunting of the left costophrenic sulcus suggesting a small left pleural effusion. An echocardiogram from 03/14/2017 showed an EF of 35%. Repeat echocardiogram on 06/01/2017 showed left ventricular systolic function severely reduced with an estimated EF of 25%. Patient was found unresponsive and pulseless on 06/04/2017; CPR was initiated. Patient received 2 ampules of epinephrine and1 ampule of bicarbonate. CPR was continued for 5 minutes before there was ROSC. Patient was intubated and transferred to the ICU where resuscitation was continued with IV fluid boluses. A right femoral arterial line and a right subclavian central line were placed. The patient's pressures were trending down into the note low 90s systolic; Levothroid infusion was started. Dr. De Souza (eligibility manager) spoke to the patient's guardian who wanted the patient's CODE STATUS to be changed to ALTERNATE CODE-INTUBATION ONLY but otherwise desires ongoing aggressive treatment. PE was considered unlikely as the patient had been on Xarelto for anticoagulation. Stat echocardiogram showed EF 20% Patient was successfully extubated on 06/05/2017 however the following day a Halicat was called for respiratory distress. The patient was tachycardic, tachypneic and hypoxic with oxygen saturations in the 80s on NRB; was subsequently reintubated and placed on mechanical ventilation. Febrile. Sputum culture on 06/04/2017 growing MRSA and Escherichia coli; follow-up sputum culture on 06/07/2017 growing MRSA. Possibly aspiration pneumonia. Infectious disease following. Cefepime and vancomycin were stopped on 2016 and the patient was started on Zyvox. Hemoglobin down to 7.2 on 06/09/2017. No melena or rectal bleeding overnight per her report. Patient unable to make his own medical decisions; nursing staff attempted several times to contact the patient's healthcare proxy. In the patient's best interest, he was transfused with 1 unit of PRBCs. Patient remains sedated and intubated on mechanical ventilation. Palliative Care was consulted to assist with symptom management and to discuss with the family the benefits and burdens of his current illnesses and the options regarding future care. . Function/Cognitive Trajectory Patient is a 67-year-old male who is a long-term resident at [facility]. He has been hospitalized 4 times in the past 4 months. Per [facility] nursing report, the patient is alert and speaks clearly at baseline. Patient was maximum assist 2 to transfer from bed to wheelchair prior to hospitalization. He was able to self propel his wheelchair using his feet. Patient has decreased strength and ROM in both upper and lower extremities; he has bilateral hand contractures. . Review of Systems ROS Limitations: Clinical Condition, Intubated, Poor Historian Integumentary: COMPLAINS OF: Non-healing sores Neurologic: COMPLAINS OF: Headache, Localized weakness, Speech Problems Past Family Social History Coded Allergies: Iodinated Contrast- Oral and IV Dye (Verified Allergy, Severe, Anaphylaxis , 05/29/17) acetaminophen (Unverified Allergy, Severe, "LIVER PROBLEMS", 05/29/17) diatrizoate meglumine (Unverified Allergy, Severe, Anaphylaxis, 05/29/17) gadobenic acid (Unverified Allergy, Severe, Anaphylaxis, 05/29/17) gadodiamide (Unverified Allergy, Severe, Anaphylaxis, 05/29/17) gadoteridol (Unverified Allergy, Severe, Anaphylaxis, 05/29/17) iodixanol (Unverified Allergy, Severe, Anaphylaxis, 05/29/17) iohexol (Unverified Allergy, Severe, Anaphylaxis, 05/29/17) penicillin G (Unverified Allergy, Severe, "HOT THROAT", 05/29/17) Uncoded Allergies: RADIOISOTOPES (Allergy, Severe, 09/27/13) UNKONWN RXN, LISTED ON PATIENT PAPERWORK FROM [facility]. Past Medical History CHF with EF of approximately 35% Osteoarthritis Hyperlipidemia Paroxysmal atrial fibrillation CKD stage III Diabetes mellitus, type II COPD Hypothyroidism Mood disorder GERD History of DVT, on Xarelto HTN CAD-s/p 3 vessel CABG Right eye retinal detachment with vitrectomy History of right great toe, 5th toe amputation MDRO . Past Surgical History CAD- s/p 3 vessel CABG in 2018 Right eye retinal detachment with vitrectomy Great toe amputation Fifth toe amputation Arthrectomy lower extremities . Reported Medications Zofran (Ondansetron HCl) 4 Mg Tab 4 Mg PO Q6HR PRN Nitroglycerin SL (Nitroglycerin) 0.4 Mg Subl 0.4 Mg SL DIRECTED PRN ONE TABLET UNDER THE TONGUE NEEDED FOR CHEST PAIN, MAY REPEAT EVERY FIVE MINUTES FOR A TOTAL OF 3 DOSES OR CALL 911 IF NO RELIEF Duoneb (Ipratropium-Albuterol Neb) 0.5-2.5 Mg/3 Ml Neb 3 Ml NEB Q6HR PRN Hydroxyzine HCl 25 Mg Tab 25 Mg PO Q6HR PRN Glucose Gel (Dextrose) 40 % Gel 1 Tube PO ONCE PRN Glucagon Emergency Inj Kit (Glucagon (Rdna) Inj Kit) 1 Mg Kit 1 Mg IM ONCE PRN Albuterol Neb (Albuterol Sulfate) 2.5 Mg/3 Ml Neb 2.5 Mg NEB Q2HR PRN Vitamin C (Ascorbic Acid) 250 Mg Tab 250 Mg PO BID Pred Forte Opth 1% (Prednisolone Acetate Opth 1%) 1% Susp 1 Drop RIGHT EYE BID Acidophilus Probiotic (Lactobacillus) 100 Mg (1 Billion Cell) Cap 1 Cap PO BID Humulin 70-30 Inj (Insulin NPH Isophane-Reg (Human) 70-30 Inj) 1,000 Unit/10 Ml Vial 70 Units SQ BID Xarelto (Rivaroxaban) 20 Mg Tab 20 Mg PO DAILY Tresiba Flextouch Pen Inj (Insulin Degludec Inj) 600 unit/3 ML Pen 95 Units SQ HS Seroquel (Quetiapine Fumarate) 25 Mg Tab 25 Mg PO HS Multiple Vitamin/Minerals (Multiple Vitamins W/ Minerals) 1 Tab Tab 1 Tab PO DAILY Melatonin 3 Mg Tab 3 Mg PO HS Levothyroxine (Levothyroxine Sodium) 137 Mcg Tab 137 Mcg PO DAILY Ferrous Sulfate 325 Mg (65 Mg Iron) Tablet 325 Mg PO DAILY Gas-X (Simethicone) 125 Mg Tab.chew 125 Mg PO DAILY Debrox Otic Drops (Carbamide Peroxide Otic Drops) 6.5% Soln 5 Drop EACH EAR MONTHLY Vitamin D3 (Cholecalciferol) 3,000 Unit Tab 3,000 Units PO DAILY Calcitriol 0.25 Mcg Cap 0.25 Mcg PO MOWEFR Take 1 capsule (0.25mcg) daily on Friday,Friday and Friday Lipitor (Atorvastatin Calcium) 40 Mg Tab 40 Mg PO HS . Current Medications Medications (Trade) Dose Ordered Sig/Gucci Route Start Time Stop Time Status Last Admin (NS Flush) 2 ml UNSCH PRN IV FLUSH 05/29/17 16:00 06/09/17 20:16 (NS Flush) 2 ml BID IV FLUSH 05/29/17 21:00 06/09/17 20:16 (Zofran Inj) 4 mg Q6H PRN IVP 05/29/17 16:00 (Kimberly-Colace) 1 tab BID PO 05/29/17 21:00 06/10/17 09:00 (Milk Of Magnesia Liq) 30 ml Q12H PRN PO 05/29/17 16:00 (Senokot) 17.2 mg Q12H PRN PO 05/29/17 16:00 (Dulcolax Supp) 10 mg DAILY PRN RECTAL 05/29/17 16:00 (Lactulose Liq) 30 ml DAILY PRN PO 05/29/17 16:00 (Albuterol Neb) 2.5 mg Q2HR NEB PRN NEB 05/29/17 16:15 (Xanax) 0.25 mg Q6H PRN PO 05/29/17 16:15 06/05/17 21:40 (Lipitor) 40 mg HS PO 05/29/17 21:00 06/09/17 20:17 (Debrox 6.5% Otic) 5 drop DAILY EACH EAR 05/30/17 09:00 06/10/17 09:16 (Atarax) 25 mg Q6H PRN PO 05/29/17 16:15 Future Hold (Pred Forte 1% Opth Susp) 1 drop BID RIGHT EYE 05/29/17 21:00 06/10/17 09:16 (Synthroid) 112 mcg DAILY@0600 PO 05/30/17 06:00 06/10/17 05:01 (D50w (Vial) Inj) 50 ml UNSCH PRN IV PUSH 05/29/17 16:45 (Glucagon Inj) 1 mg UNSCH PRN OTHER 05/29/17 16:45 (Synthroid) 25 mcg DAILY@0600 PO 05/30/17 06:00 06/10/17 05:01 (Aspirin) 325 mg DAILY PO 06/01/17 09:00 06/10/17 09:00 (Tylenol) 650 mg Q4H PRN PO 05/31/17 12:45 06/09/17 04:33 (Cozaar) 50 mg DAILY PO 06/01/17 11:15 Future Hold 06/04/17 09:41 (Peridex 0.12% Liq) 15 ml BID@08,20 MT 06/04/17 20:00 06/10/17 08:00 (Brethine Inj) 1 mg UNSCH PRN SQ 06/04/17 14:45 (Protonix Inj) 40 mg Q24H IV PUSH 06/04/17 18:00 06/09/17 16:45 (Morphine Inj) 2 mg Q3H PRN IV PUSH 06/06/17 11:00 06/09/17 00:36 (Narcan Inj) 0.4 mg UNSCH PRN IV PUSH 06/06/17 10:30 (NovoLOG SUPPLEMENTAL SCALE) 1 Q6HR SQ 06/07/17 09:00 06/10/17 06:00 (Coreg) 3.125 mg Q12HR PO 06/07/17 09:00 06/10/17 09:15 (Duoneb Neb) 1 ampule Q4HR NEB NEB 06/07/17 08:00 06/10/17 07:57 (Duoneb Neb) 1 ampule Q2HR NEB PRN NEB 06/07/17 07:45 Propofol 100 ml @ 2.484 mls/ hr TITRATE PRN IV 06/07/17 07:45 06/10/17 07:19 (Lasix Inj) 20 mg BID@09,18 IV PUSH 06/07/17 18:00 06/10/17 09:14 (Free Water) 250 ml Q8HR G-TUBE 06/08/17 09:45 06/10/17 05:01 (Zyvox) 600 mg Q12H PO 06/09/17 18:00 06/10/17 05:01 (Xarelto) 20 mg DAILY PO 06/10/17 09:00 06/10/17 09:15 Family History Jensen's father had Emphysema and heart problems; many years ago he committed suicide. Mother is ; reason unknown. Diabetes, high blood pressure, runs in family. . Substance Use Tobacco: Jensen has a history of smoking; quick when he was in his 20's. Alcohol: None known Prescription med abuse: None known Illicits: None known . Psychosocial History Jensen was born in [place]. Jensen has 4 half siblings (2 of which currently live in [place]). Jensen was raised by his Aunt. 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 Per previous note, his cousin (Krista) described him as a person that is "difficult to get along with" and strong willed. Jensen enjoys watching sports; including the Yankees and Giants. Jensen also has loved records and eating sweets. Patient is a LTC resident of [facility] and will return there at discharge. . Spiritual/Cultural Factors Orthodox rio . Documented care wishes: No documented care wishes are available at this time. . Today's verbally stated goals: Patient is unable to communicate his medical treatment goals due to his clinical condition. . Family/friends goals: Goals remain aggressive up to the point of cardiopulmonary resuscitation. Ethical and Legal Issues Public guardianship - Process Control Supervisor on aging of [facility]. Fernanda Hankins: [phone] (1st contact) Fernanda Bryant: [phone] . Physical Exam Vital Signs Date Time Temp Pulse Resp B/P (MAP) Pulse Ox O2 Delivery O2 Flow Rate FiO2 06/10/17 08:11 100 35 06/10/17 08:00 72 06/10/17 08:00 35 06/10/17 08:00 99.0 74 115/58 (77) 98 06/10/17 07:59 35 06/10/17 07:59 98 35 06/10/17 06:00 68 06/10/17 04:09 97 35 06/10/17 04:00 99.0 70 119/56 (77) 96 06/10/17 04:00 35 06/10/17 04:00 69 06/10/17 03:00 66 97 06/10/17 02:12 74 118/57 (77) 06/10/17 02:00 79 06/10/17 02:00 79 06/10/17 02:00 70 06/10/17 01:02 98 35 06/10/17 01:00 71 120/53 (75) 100 06/10/17 01:00 71 120/53 (75) 100 06/10/17 00:00 98.9 66 116/57 (76) 100 06/10/17 00:00 35 06/10/17 00:00 63 06/09/17 23:00 67 112/53 (72) 100 06/09/17 22:14 100 40 06/09/17 22:00 70 114/58 (76) 100 06/09/17 22:00 68 06/09/17 21:00 78 129/60 (83) 100 06/09/17 20:00 40 06/09/17 20:00 73 06/09/17 20:00 99.0 72 100 06/09/17 19:10 100 40 06/09/17 18:01 76 06/09/17 18:00 75 06/09/17 17:00 79 144/60 (88) 100 06/09/17 17:00 79 06/09/17 16:00 40 06/09/17 16:00 78 124/58 (80) 100 06/09/17 16:00 78 06/09/17 15:05 100 40 06/09/17 15:01 76 122/58 (79) 100 06/09/17 14:00 73 108/54 (72) 100 06/09/17 14:00 73 06/09/17 13:00 76 06/09/17 13:00 76 123/57 (79) 100 06/09/17 12:01 77 06/09/17 12:01 77 134/53 (80) 100 06/09/17 12:00 75 100 06/09/17 12:00 75 06/09/17 12:00 40 06/09/17 11:00 100 40 06/09/17 11:00 82 06/09/17 11:00 82 114/58 (76) 100 . Exam CONSTITUTIONAL/GENERAL: This is an adequately nourished patient, fragile appearing male patient who is intubated on mechanical ventilation. TUBES/LINES/DRAINS: PIV, CVL, Conde catheter, ETT, NGT, soft restraints SKIN: Generalized pallor. Right great toe and fifth toe status post amputation. Multiple wounds on feet bilaterally. Venous stasis in bilateral lower extremities. HEAD: Atraumatic. Normocephalic. EYES: Legally blind per previous notes. ENT: Orotracheally intubated. Poor dentition. Nose without bleeding or purulent drainage. CARDIOVASCULAR: Tachycardic, irregular heart rate. + Murmur. RESPIRATORY/CHEST: Orotracheally intubated on mechanical ventilation. Breath sounds diminished bilaterally, L > R. Clear to auscultation. No wheezes, rales, or rhonchi. GASTROINTESTINAL: Protuberant abdomen, tympanic, improved with NGT decompression GENITOURINARY: Without palpable bladder distension. Conde catheter in place. MUSCULOSKELETAL: Status post right great toe and fifth toe amputation. Small ulcers on bilateral anterior fleming. Non stageable pressure ulcer on bilateral sole, eschar left lateral foot. LYMPHATICS: No palpable cervical or supraclavicular adenopathy. NEUROLOGICAL: Encephalopathic status post code possible anoxic brain injury. Diprivan infusion for sedation. PSYCHIATRIC: Unable to assess due to patient's clinical condition . Diagnostic Tests Laboratory Laboratory Tests Test 06/07/17 23:30 06/08/17 04:36 06/08/17 11:50 06/09/17 04:17 Nasal Screen MRSA (PCR) MRSA DETECTED (NOT DETECT) White Blood Count 13.0 TH/MM3 (4.0-11.0) 11.8 TH/MM3 (4.0-11.0) Red Blood Count 2.97 MIL/MM3 (4.50-5.90) 2.79 MIL/MM3 (4.50-5.90) Hemoglobin 7.6 GM/DL (13.0-17.0) 8.0 GM/DL (13.0-17.0) 7.2 GM/DL (13.0-17.0) Hematocrit 24.4 % (39.0-51.0) 24.2 % (39.0-51.0) 22.8 % (39.0-51.0) Mean Corpuscular Volume 82.3 FL (80.0-100.0) 81.9 FL (80.0-100.0) Mean Corpuscular Hemoglobin 25.7 PG (27.0-34.0) 26.0 PG (27.0-34.0) Mean Corpuscular Hemoglobin Concent 31.2 % (32.0-36.0) 31.7 % (32.0-36.0) Red Cell Distribution Width 18.9 % (11.6-17.2) 19.1 % (11.6-17.2) Platelet Count 334 TH/MM3 (150-450) 375 TH/MM3 (150-450) Mean Platelet Volume 8.0 FL (7.0-11.0) 7.9 FL (7.0-11.0) Neutrophils (%) (Auto) 82.5 % (16.0-70.0) 79.1 % (16.0-70.0) Lymphocytes (%) (Auto) 6.4 % (9.0-44.0) 8.5 % (9.0-44.0) Monocytes (%) (Auto) 8.5 % (0.0-8.0) 8.6 % (0.0-8.0) Eosinophils (%) (Auto) 2.2 % (0.0-4.0) 3.2 % (0.0-4.0) Basophils (%) (Auto) 0.4 % (0.0-2.0) 0.6 % (0.0-2.0) Neutrophils # (Auto) 10.7 TH/MM3 (1.8-7.7) 9.3 TH/MM3 (1.8-7.7) Lymphocytes # (Auto) 0.8 TH/MM3 (1.0-4.8) 1.0 TH/MM3 (1.0-4.8) Monocytes # (Auto) 1.1 TH/MM3 (0-0.9) 1.0 TH/MM3 (0-0.9) Eosinophils # (Auto) 0.3 TH/MM3 (0-0.4) 0.4 TH/MM3 (0-0.4) Basophils # (Auto) 0.0 TH/MM3 (0-0.2) 0.1 TH/MM3 (0-0.2) CBC Comment DIFF FINAL AUTO DIFF Differential Comment FINAL DIFF MANUAL Blood Urea Nitrogen 28 MG/DL (7-18) 29 MG/DL (7-18) Creatinine 1.55 MG/DL (0.60-1.30) 1.42 MG/DL (0.60-1.30) Random Glucose 160 MG/DL (74-106) 173 MG/DL (74-106) Total Protein 5.4 GM/DL (6.4-8.2) 5.8 GM/DL (6.4-8.2) Albumin 1.6 GM/DL (3.4-5.0) Calcium Level 7.4 MG/DL (8.5-10.1) 7.4 MG/DL (8.5-10.1) Alkaline Phosphatase 91 U/L (45-117) Aspartate Amino Transf (AST/SGOT) 30 U/L (15-37) Alanine Aminotransferase (ALT/SGPT) 27 U/L (12-78) Total Bilirubin 0.3 MG/DL (0.2-1.0) Sodium Level 148 MEQ/L (136-145) 148 MEQ/L (136-145) Potassium Level 3.8 MEQ/L (3.5-5.1) 4.0 MEQ/L (3.5-5.1) Chloride Level 112 MEQ/L (98-107) 111 MEQ/L (98-107) Carbon Dioxide Level 29.2 MEQ/L (21.0-32.0) 29.1 MEQ/L (21.0-32.0) Anion Gap 7 MEQ/L (5-15) 8 MEQ/L (5-15) Estimat Glomerular Filtration Rate 45 ML/MIN (>89) 49 ML/MIN (>89) Protein Corrected Calcium 8.3 MG/DL (8.5-10.1) 8.1 MG/DL (8.5-10.1) Differential Total Cells Counted 100 Neutrophils % (Manual) 74 % (16-70) Band Neutrophils % 3 % (0-6) Lymphocytes % 7 % (9-44) Monocytes % 12 % (0-8) Eosinophils % 3 % (0-4) Neutrophils # (Manual) 9.2 TH/MM3 (1.8-7.7) Metamyelocytes 1 % (0-1) Platelet Estimate NORMAL (NORMAL) Platelet Morphology Comment NORMAL (NORMAL) Test 06/09/17 17:00 06/10/17 03:50 White Blood Count 12.3 TH/MM3 (4.0-11.0) 13.3 TH/MM3 (4.0-11.0) Red Blood Count 2.98 MIL/MM3 (4.50-5.90) 3.10 MIL/MM3 (4.50-5.90) Hemoglobin 8.2 GM/DL (13.0-17.0) 8.5 GM/DL (13.0-17.0) Hematocrit 24.9 % (39.0-51.0) 25.6 % (39.0-51.0) Mean Corpuscular Volume 83.3 FL (80.0-100.0) 82.6 FL (80.0-100.0) Mean Corpuscular Hemoglobin 27.5 PG (27.0-34.0) 27.5 PG (27.0-34.0) Mean Corpuscular Hemoglobin Concent 33.0 % (32.0-36.0) 33.3 % (32.0-36.0) Red Cell Distribution Width 17.7 % (11.6-17.2) 18.4 % (11.6-17.2) Platelet Count 398 TH/MM3 (150-450) 434 TH/MM3 (150-450) Mean Platelet Volume 8.6 FL (7.0-11.0) 8.6 FL (7.0-11.0) Neutrophils (%) (Auto) 80.8 % (16.0-70.0) Lymphocytes (%) (Auto) 7.1 % (9.0-44.0) Monocytes (%) (Auto) 7.8 % (0.0-8.0) Eosinophils (%) (Auto) 3.4 % (0.0-4.0) Basophils (%) (Auto) 0.9 % (0.0-2.0) Neutrophils # (Auto) 10.7 TH/MM3 (1.8-7.7) Lymphocytes # (Auto) 0.9 TH/MM3 (1.0-4.8) Monocytes # (Auto) 1.0 TH/MM3 (0-0.9) Eosinophils # (Auto) 0.4 TH/MM3 (0-0.4) Basophils # (Auto) 0.1 TH/MM3 (0-0.2) CBC Comment AUTO DIFF Differential Comment AUTO DIFF CONFIRMED Blood Urea Nitrogen 26 MG/DL (7-18) Creatinine 1.25 MG/DL (0.60-1.30) Random Glucose 168 MG/DL (74-106) Total Protein 6.0 GM/DL (6.4-8.2) Albumin 1.5 GM/DL (3.4-5.0) Calcium Level 7.5 MG/DL (8.5-10.1) Alkaline Phosphatase 95 U/L (45-117) Aspartate Amino Transf (AST/SGOT) 42 U/L (15-37) Alanine Aminotransferase (ALT/SGPT) 30 U/L (12-78) Total Bilirubin 0.3 MG/DL (0.2-1.0) Sodium Level 148 MEQ/L (136-145) Potassium Level 3.7 MEQ/L (3.5-5.1) Chloride Level 112 MEQ/L (98-107) Carbon Dioxide Level 30.1 MEQ/L (21.0-32.0) Anion Gap 6 MEQ/L (5-15) Estimat Glomerular Filtration Rate 57 ML/MIN (>89) Result Diagram: 06/10/17 0350 06/10/17 0350 Microbiology Microbiology Date/Time Source Procedure Growth Status 06/07/17 11:30 Sputum Expectorated Sputum Gram Stain - Final Complete 06/07/17 11:30 Sputum Culture - Final S. Aureus Mrsa Complete Procedures 06/04/2017: PEA arrest with CPR 06/04/2017: Intubation 06/04/2017: Right femur all arterial line placement 06/04/2017: Right subclavian central line placement 06/04/2017: NGT 06/05/2017: Extubation. 06/06/2017: Reintubation . Patient/Family Conference Present at Family Conference: Spoke with court appointed legal guardian. [employer] contracts representative, Fernanda Bryant: [phone] . Family Conference Location: [facility] Issues Discussed: * Palliative care role, purpose, approach * Patient/family understanding of the current medical problems * Questions answered to the best of my ability * Palliative care contact information provided . Assessment and Plan Disease Oriented Problem List: (1) GERD (gastroesophageal reflux disease) (2) Mood disorder (3) COPD (chronic obstructive pulmonary disease) (4) Respiratory failure (5) CAD (coronary artery disease) (6) Chronic kidney disease, stage 3 (7) Atrial fibrillation (8) Hypertension (9) Diabetes (10) Hypothyroidism (11) S/P CABG x 3 Symptom Scale: Pertinent Non-Medical Issues Psychosocial: Jensen was born in [place]. Jensen has 4 half siblings (2 of which currently live in [place]). Jensen was raised by his Aunt. 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 Per previous note, his cousin (Krista) described him as a person that is "difficult to get along with" and strong willed. Jensen enjoys watching sports; including the [employer] and [employer]. Jensen also has loved records and eating sweets. Patient is a LTC resident of [facility] and will return there at discharge. Spiritual: Orthodox rio Legal: Court appointed legal guardian as of 10/03/2015 - [employer] Fernanda Hankins: [phone] (1st contact). GiselleMercy Bryant: [phone] Ethical issues impacting care: No known ethical issues impacting care at this time. . Important Contacts Public guardianship - Process Control Supervisor on aging of [facility]. Fernanda Hankins: [phone] (1st contact) GiselleMercy Bryant: [phone] . Prognosis Patient with significant debility. He is a long-term prison resident who has been hospitalized 4 times in the past 4 months. He has multiple comorbid conditions including his recent MCA stroke, MRSA pneumonia, recurrent respiratory failure and cardiomyopathy with an EF of 25%. He remains encephalopathic status post PEA arrest with possible anoxic brain injury. Given patient's advanced age, complex medical history and baseline debility, he is at high risk for continued decline, complications and rehospitalizations. . Code Status: No Code Plan * NO CODE * [facility] community DNR completed 06/09/2017. * Decision-making: Patient is currently intubated and unable to participate in establishing his medical treatment goals. It is unknown if the patient is capacitated at baseline.Court appointed legal guardian as of 10/03/2015 - [employer] Fernanda Hankins: [phone] (1st contact). Fernanda Bryant: [phone] * Discussed patient with nurse (Jennifer) and [employer] contracts representative, Fernanda Brynat. Spoke with nurse (Nancy) at [facility]. * Goals remain aggressive up to the point of cardiopulmonary resuscitation. PLAN TO FURTHER DISCUSS MEDICAL TREATMENT GOALS TOMORROW 06/11/2017 WITH FERNANDA HANKINS ([employer] VASCULAR RADIOLOGIST) WHO IS FAMILIAR WITH THIS PATIENT. * Symptom management-debility: Patient is a resident of [facility] with plan to discharge back to previous setting. Per legal guardian, patient was maximum assist 2 to transfer from bed to wheelchair prior to hospitalization. He was able to self propel his wheelchair using his feet. * Symptom management-dyspnea: Patient was reintubated 06/05/2017. Sputum culture on 06/04/2017 growing MRSA and Escherichia coli; follow-up sputum culture on 06/07/2017 growing MRSA. Possibly aspiration pneumonia. * Symptom management-dysphasia: Patient with moderate oropharyngeal dysphasia. Recommendations per speech therapy: 1) Mechanically soft diet with nectar consistency thickened liquids. 2) Medications presented crushed in pure. 3) Patient requires full feeding assistance. 4) Patient will require speech therapy after discharge. * Palliative care contact information provided to [employer] contracts representative, Fernanda Bryant. . Thank you for the opportunity to participate in the care of Mr. Connors. . Attestation To help prompt me to consider important information that might be impacting today's encounter and assessment, information from prior notes written by myself or my colleagues may have been "brought forward" into today's note. My signature on this note, however, is an attestation that I personally performed the exam, history, and/or decision-making noted today, and, unless otherwise indicated, the interactions with patient, family, and staff as well as the review of records all occurred today. I also attest that the listed assessment and stated plan reflect my best clinical judgment today based on the combination of historical information, prior notes, and today's exam/ interactions. When time spent is documented, it refers only to time spent today by the signer, or if indicated, combined time spent today by collaborating physician/nurse practitioner. . Maria Antonia Whiting Jun 10, 2017 12:05
[2017-06-10] MEDS ORDERED: PHARMACY ORDERED LAB ONE (14:45)
--- NOTE | 2017-06-10 17:08 | HHI.NPPN ---
Subjective General Problems: Anemia, Edema, Hypertension Renal Failure: Chronic, Acute, Stage III History of Present Illness 67-year-old male with a past medical history of ischemic heart disease, congestive heart failure, chronic kidney disease, atrial fibrillation, chronic anemia, diabetes mellitus, hypothyroidism, and peripheral vascular disease who was admitted with a complaint of worsening shortness of breath. I was called to see the patient because of elevated BUN and creatinine. The patient has known history of chronic kidney disease and his baseline creatinine seems to be in the range of 1.3-1.5 most of the time. Additional Remarks Patient remain intubated and sedated, on CPAP, clinically same. Objective Data Data 06/10/17 06/11/17 19:00 07:00 Intake Total 200 ml Balance 200 ml IV Total 200 ml Vital Signs Date Time Temp Pulse Resp B/P (MAP) Pulse Ox O2 Delivery O2 Flow Rate FiO2 06/10/17 16:00 70 06/10/17 16:00 35 06/10/17 16:00 98.8 79 24 117/58 (77) 98 06/10/17 15:10 95 35 06/10/17 15:10 35 06/10/17 14:00 70 06/10/17 12:00 99.0 74 115/58 (77) 98 06/10/17 12:00 72 06/10/17 12:00 99.3 74 24 94/54 (67) 98 06/10/17 12:00 92 35 06/10/17 12:00 35 06/10/17 10:00 99.3 74 24 94/54 (67) 98 06/10/17 10:00 35 06/10/17 10:00 72 06/10/17 08:11 100 35 06/10/17 08:00 72 06/10/17 08:00 35 06/10/17 08:00 99.0 74 115/58 (77) 98 06/10/17 07:59 35 06/10/17 07:59 98 35 06/10/17 06:00 68 06/10/17 04:09 97 35 06/10/17 04:00 99.0 70 119/56 (77) 96 06/10/17 04:00 35 06/10/17 04:00 69 06/10/17 03:00 66 97 06/10/17 02:12 74 118/57 (77) 06/10/17 02:00 79 06/10/17 02:00 79 06/10/17 02:00 70 06/10/17 01:02 98 35 06/10/17 01:00 71 120/53 (75) 100 06/10/17 01:00 71 120/53 (75) 100 06/10/17 00:00 98.9 66 116/57 (76) 100 06/10/17 00:00 35 06/10/17 00:00 63 06/09/17 23:00 67 112/53 (72) 100 06/09/17 22:14 100 40 06/09/17 22:00 70 114/58 (76) 100 06/09/17 22:00 68 06/09/17 21:00 78 129/60 (83) 100 06/09/17 20:00 40 06/09/17 20:00 73 06/09/17 20:00 99.0 72 100 06/09/17 19:10 100 40 06/09/17 18:01 76 06/09/17 18:00 75 -: 06/10/17 0350 06/10/17 0350 Physical Exam General Appearance Remarks Intubated and sedated. Eyes Eye Exam: Pupils Equal Throat Throat Exam: Oral Mucosa [place] & Moist Neck Neck Exam: Neck Supple Pulmonary Resp Exam: Breath Sounds Equal, No Distress, Rhonchi, Decreased Bases Cardiology CV Exam: Regular, Normal Sinus Rhythm Gastrointestinal/Abdomen GI Exam: Soft, Non-Tender, Bowel Sounds Present Extremeties Extremities Exam: Trace Edema (Bilateral scalling and dryness of skin, in lower leg.) Neurologic Neuro Exam: Sedated Assessment/Plan Assessment Summary: KATERIN/Acute Renal Failure, Hypertension, CKD Stage III Problem List: (1) Acute kidney injury ICD Codes: N17.9 - Acute kidney failure, unspecified (2) Altered mental status ICD Codes: R41.82 - Altered mental status Status: Acute (3) Hx of deep venous thrombosis ICD Codes: Z86.718 - History of deep venous thrombosis Status: Chronic (4) CHF (congestive heart failure) ICD Codes: I50.9 - Congestive heart failure Status: Resolved (5) Diabetes ICD Codes: E11.9 - Diabetes Status: Chronic (6) Hypothyroidism ICD Codes: E03.9 - Hypothyroidism, unspecified Status: Chronic (7) Hypertension ICD Codes: I10 - Hypertension Status: Chronic (8) Chronic kidney disease, stage 3 ICD Codes: N18.3 - Chronic kidney disease, stage 3 (moderate) (9) Rhabdomyolysis ICD Codes: M62.82 - Rhabdomyolysis Plan Patient has been non oliguric. Has chronic kidney disease with baseline Creatinine 1.3-1.5. Most likely has chronic kidney disease due to Hypertensive or renovascular disease. Now develop KATERIN, possibly due to Rhabdo. or Obstructive uropathy. Develop cardiac arrest and intubated. BP is now stable, Creatinine continue to improve. Urine out put is good, on Lasix, follow the urine out put and BMP. Weaning as per CCM. Hgb. is stable, post transfusion. Problem Qualifiers (1) Hypertension: Qualified Codes: I10 - Essential (primary) hypertension Sunita Martin MD Jun 10, 2017 17:08
[2017-06-10] MEDS: PANTOPRAZOLE SODIUM 40 MG VIAL IV PUSH SCH (17:49)
[2017-06-10] MEDS: ATORVASTATIN 40 MG TAB PO SCH (21:17)
[2017-06-10] MEDS: SODIUM CHLORIDE 0.9% FLUSH 10 ML FLUSH IV FLUSH SCH (21:18)
[2017-06-11] VITALS (19 sets, daily range): BP systolic 88–131; BP diastolic 56–61; PULSE 70–90; RESP 17–28; TEMP 99.6–100.8; O2SAT 94–100
[2017-06-11] MEDS: RESP: ALBUTEROL 2.5 MG/IPRATROPIUM 0.5 MG NEB (SCH) NEB ×3 (00:06→07:13)
[2017-06-11] MEDS: PROPOFOL 1000 MG/100 ML INJ 100 ML IV PRN ×6 (01:39→22:14)
[2017-06-11 04:44] LABS: AUTOMATED NEUTROPHIL # 10.9 TH/MM3 (1.8-7.7); BASOPHIL # 0.1 TH/MM3 (0-0.2); BASOPHIL % 0.8 % (0.0-2.0); EOSINOPHIL # 0.4 TH/MM3 (0-0.4); EOSINOPHIL % 2.7 % (0.0-4.0); HEMATOCRIT 24.3 % (39.0-51.0); HEMOGLOBIN 7.9 GM/DL (13.0-17.0); LYMPH % 7.3 % (9.0-44.0); MEAN CELL VOLUME 81.7 FL (80.0-100.0); MEAN CORPUSCULAR HEMOGLOBIN 26.6 PG (27.0-34.0); MEAN CORPUSCULAR HGB CONC 32.5 % (32.0-36.0); MEAN PLATELET VOLUME 8.2 FL (7.0-11.0); MONO % 9.7 % (0.0-8.0); MONOCYTE # 1.3 TH/MM3 (0-0.9); NEUT % 79.5 % (16.0-70.0); PLATELET COUNT 436 TH/MM3 (150-450); RED BLOOD COUNT 2.97 MIL/MM3 (4.50-5.90); RED CELL DISTRIBUTION WIDTH 18.5 % (11.6-17.2); WHITE BLOOD COUNT 13.7 TH/MM3 (4.0-11.0)
[2017-06-11 05:14] LABS: ALBUMIN 1.5 GM/DL (3.4-5.0); ALT (GPT) 33 U/L (12-78); AST (GOT) 44 U/L (15-37); BLOOD UREA NITROGEN 26 MG/DL (7-18); CALCIUM 7.6 MG/DL (8.5-10.1); CHLORIDE 107 MEQ/L (98-107); CREATININE 1.25 MG/DL (0.60-1.30); GLOMERULAR FILTRATION RATE 57 ML/MIN (>89); GLUCOSE,RANDOM 227 MG/DL (74-106); MAGNESIUM 1.9 MG/DL (1.5-2.5); PHOSPHORUS 2.1 MG/DL (2.5-4.9); SODIUM (NA) 143 MEQ/L (136-145)
[2017-06-11 05:17] LABS: ALKALINE PHOSPHATASE 103 U/L (45-117); TOTAL BILIRUBIN ADULT 0.3 MG/DL (0.2-1.0); TOTAL PROTEIN 5.9 GM/DL (6.4-8.2)
[2017-06-11] MEDS: FREE WATER G-TUBE SCH ×3 (06:00→20:10)
[2017-06-11] MEDS: INSULIN ASPART SUPPLEMENTAL SCALE SQ SCH ×4 (06:00→18:43)
[2017-06-11] MEDS: LEVOTHYROXINE SODIUM 25 MCG TAB PO SCH (06:36)
[2017-06-11] MEDS: LINEZOLID 600 MG TAB PO SCH ×2 (06:36→18:43)
[2017-06-11] MEDS: LEVOTHYROXINE SODIUM 112 MCG TAB PO SCH (06:36)
[2017-06-11] MEDS: ACETAMINOPHEN 325 MG TAB PO PRN ×2 (06:43→22:13)
[2017-06-11] MEDS ORDERED: POTASSIUM CHLOR 40 MEQ PREMIX 100 ML IV SCH (07:15)
[2017-06-11] MEDS: prednisoLONE ACETATE 1% OPHT SUSP 5 ML BTL RIGHT EYE SCH ×2 (08:03→20:10)
[2017-06-11] MEDS: CARBAMIDE PEROXIDE 6.5% OTIC SOLN 15 ML BTL EACH EAR SCH (08:03)
[2017-06-11 08:04] LABS: BANDS 17 % (0-6); LYMPHOCYTES 3 % (9-44); METAMYELOCYTES 3 % (0-1); MONOCYTES 4 % (0-8); NEUTROPHIL # MANUAL DIFF 11.9 TH/MM3 (1.8-7.7); POLYS (SEG NEUTROPHILS) 67 % (16-70)
[2017-06-11] MEDS: SODIUM CHLORIDE 0.9% FLUSH 10 ML FLUSH IV FLUSH SCH ×2 (08:04→20:08)
[2017-06-11] MEDS: CARVEDILOL 3.125 MG TAB PO SCH ×2 (08:04→20:08)
[2017-06-11] MEDS: DOCUSATE SODIUM 50 MG/SENNA 8.6 MG TAB PO SCH ×2 (08:04→20:08)
[2017-06-11] MEDS: RIVAROXABAN 20 MG TAB PO SCH (08:04)
[2017-06-11] MEDS: ASPIRIN 325 MG TAB PO SCH (08:04)
[2017-06-11] MEDS: FUROSEMIDE 40 MG/4 ML VIAL IV PUSH SCH ×2 (08:04→18:43)
[2017-06-11] MEDS: CHLORHEXIDINE 0.12% (ORAL KIT) 15 ML CUP MT SCH ×2 (08:05→20:09)
--- NOTE | 2017-06-11 11:58 | HHI.FPPN ---
Subjective Remarks Seen and examined this morning. Sedated on propofol. Currently intubated on A/C PEEP 5, FiO2 35%, RR 14. Nursing staff reports the has been occasionally arousable and able to follow commands. Failed ventilator weaning. Unable to fully arouse while in the room. No acute events overnight. Objective Vitals Vital Signs Date Time Temp Pulse Resp B/P (MAP) Pulse Ox O2 Delivery O2 Flow Rate FiO2 06/11/17 11:30 35 06/11/17 11:21 35 06/11/17 11:21 99 35 06/11/17 10:00 70 06/11/17 08:00 35 06/11/17 08:00 74 06/11/17 08:00 99.9 74 18 122/59 (80) 94 06/11/17 07:43 19 06/11/17 07:13 96 35 06/11/17 06:00 73 06/11/17 04:30 98 35 06/11/17 04:00 79 06/11/17 04:00 35 06/11/17 04:00 100.5 79 115/56 (75) 100 06/11/17 02:00 73 06/11/17 01:15 100 35 06/11/17 00:00 71 06/11/17 00:00 35 06/11/17 00:00 99.6 71 116/58 (77) 100 06/10/17 22:15 100 35 06/10/17 22:00 75 06/10/17 20:00 35 06/10/17 20:00 79 06/10/17 20:00 101.4 79 118/58 (78) 98 06/10/17 19:00 99 35 06/10/17 18:00 82 06/10/17 16:00 70 06/10/17 16:00 35 06/10/17 16:00 98.8 79 24 117/58 (77) 98 06/10/17 15:10 95 35 06/10/17 15:10 35 06/10/17 14:00 70 06/10/17 12:00 99.0 74 115/58 (77) 98 06/10/17 12:00 72 06/10/17 12:00 99.3 74 24 94/54 (67) 98 06/10/17 12:00 92 35 06/10/17 12:00 35 I/O 06/10/17 06/10/17 06/10/17 06/11/17 06/11/17 06/11/17 07:00 15:00 23:00 07:00 15:00 23:00 Intake Total 1268 ml 200 ml 675 ml 1111 ml 310 ml Output Total 700 ml 950 ml 775 ml 0 ml Balance 568 ml 200 ml -275 ml 336 ml 310 ml Intake Oral 0 ml IV Total 433 ml 200 ml 100 ml 200 ml 310 ml Tube Feeding 335 ml 375 ml 411 ml Other 500 ml 200 ml 500 ml Output Urine Total 700 ml 950 ml 775 ml Tube Feeding Residual Discard 0 ml # Bowel Movements 2 2 4 Result Diagram: 06/11/1742906/11/17429 Objective Remarks GENERAL: elderly man, intubated, laying in bed, sedated SKIN: scaling and dryness of right and left leg EYES: legally blind, yellow crusting of both eyes ENT: dental caries, dry crusting of lips CARDIOVASCULAR: Regular rate and rhythm RESPIRATORY: decreased breath sounds in b/l bases. Coarse breath sounds throughout. 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 A/P Assessment and Plan 67 year old male with CHF (EF 35%), HTN, CKD stage 3, CAD s/p 3 vessel CABG, Afib on xarelto, HTN, HLD, DM admitted for acute infarct of posterior left MCA. Currently on empiric antibiotics due to meeting sepsis criteria. Discharge Planning Unclear timetable at this time PT- return to SNF at [facility]- patient will require speech therapy after discharge OT- OT at rehab, SNF Problem List: (1) Pneumonia ICD Codes: J18.9 - Pneumonia Status: Acute Plan: Sputum culture grew MRSA and E. Coli. Possibly aspiration pneumonia ID consulted-appreciate recs. -Linezolid 600 mg Q12 ABx history - cipro/flagyl (06/07) -Started Cefepime (06-07 - 06/10 ) -Continue Vancomycin (06/04 - 06/09) (2) Mechanically assisted ventilation ICD Codes: Z99.11 - Mechanically assisted ventilation Status: Resolved Plan: Extubated 06/05, status post cardiac arrest and return of spontaneous circulation on 06/04. Reintubated 06/07 for respiratory distress. -Continue ICU management [employer] consulted-appreciate recs -On A/C -Palliative care consulted (3) Ischemic stroke ICD Codes: I63.9 - Cerebral infarction, unspecified Status: Acute Plan: Patient presented with aphasia and left-sided weakness and mild right- sided weakness upon arrival to ED. Brain MRI demonstrated increased signal in the posterior left MCA distribution on the diffusion of weighted images characteristic of an acute or subacute infarct. Currently no mass shift or evidence hemorrhage. Carotid US: moderate visble plaque in both carotid arteries, findings suggest at least a moderate stenosis. possible significant carotid disease, though not a good candidate for further imaging of the carotids at this point Neurology consulted, recs appreciated. -Continue aspirin 325 mg PO daily -Continue Xarelto 20mg PO daily -Physical therapy (4) Sepsis ICD Codes: A41.9 - Sepsis Status: Acute Plan: ID consulted-appreciate recs -Abx per ID as above (5) Congestive heart failure ICD Codes: I50.9 - Heart failure, unspecified Status: Chronic Plan: Echo form 03/14/17 demonstrated 35% ejection fraction CXR 06/01 revealed cardiomegaly and stable compared to CXR 05/22/17, which revealed slight blunting of the left costophrenic sulcus suggesting a small left pleural effusion CXR 06/01 demonstrated moderate pulmonary vascular congestion Echo 06/01: mildly dilated LV, EF 25%, mild to moderate aortic sclerosis Echo 06/04: EF 20% -Lasix 20mg PO BID -Monitor HR and BP -Coreg 3.125mg BID (6) Chronic kidney disease, stage 3 ICD Codes: N18.3 - Chronic kidney disease, stage 3 (moderate) Plan: Baseline Cr. 1.3-1.5; Stable around 1.2-1.6 -Continue to monitor -Nephrology consulted, recs appreciated -Avoid nephrotoxins -Follow I/O (7) Rhabdomyolysis ICD Codes: M62.82 - Rhabdomyolysis Plan: Elevated creatine kinase 2533 most likely due to tremors, decreased to 1397 Improving NS 125mls/hr Continue to monitor Nephrology consulted, appreciate recs (8) Atrial fibrillation ICD Codes: I48.91 - Atrial fibrillation Status: Chronic Plan: -Xarelto 20mg PO daily (9) Hypertension ICD Codes: I10 - Hypertension Status: Chronic Plan: -Continue home meds: Coreg 6.25 mg PO q12 Losartan 50mg PO daily (10) Neurogenic bladder ICD Codes: N31.9 - Neuromuscular dysfunction of bladder, unspecified Plan: Neurogenic bladder due to stroke -Conde catheter placed (11) Hyperlipidemia ICD Codes: E78.5 - Hyperlipidemia Status: Chronic Plan: -Continue Atorvastatin 40mg PO HS (12) Hypothyroidism ICD Codes: E03.9 - Hypothyroidism, unspecified Status: Chronic Plan: -Continue Levothyroxine 112mcg PO daily (13) Diabetes ICD Codes: E11.9 - Diabetes Status: Chronic Plan: -Low dose SS -Held home insulin (14) Nutrition, metabolism, and development symptoms ICD Codes: R63.8 - Other symptoms and signs concerning food and fluid intake Status: Acute Plan: Fluids: none due to CHF Diet: Tube feeds Electrolytes: monitor and replace as needed DVT ppx: Xarelto, SCDs Problem Qualifiers (1) Pneumonia: Qualified Codes: J15.212 - Pneumonia due to methicillin resistant Staphylococcus aureus (2) Congestive heart failure: Qualified Codes: I50.9 - Heart failure, unspecified (3) Atrial fibrillation: Qualified Codes: I48.2 - Chronic atrial fibrillation (4) Hypertension: Qualified Codes: I10 - Essential (primary) hypertension Jermaine Bell MD R1 Jun 11, 2017 11:58
--- NOTE | 2017-06-11 12:54 | HHI.IDPN ---
Note Infectious Disease Note ID [employer] for DR. Bello. Patient on CPAP. awakens and following simple commands. Low grade fever. Antibiotics Linezolid. Allergies: Coded Allergies: Iodinated Contrast- Oral and IV Dye (Verified Allergy, Severe, Anaphylaxis , 05/29/17) acetaminophen (Unverified Allergy, Severe, "LIVER PROBLEMS", 05/29/17) diatrizoate meglumine (Unverified Allergy, Severe, Anaphylaxis, 05/29/17) gadobenic acid (Unverified Allergy, Severe, Anaphylaxis, 05/29/17) gadodiamide (Unverified Allergy, Severe, Anaphylaxis, 05/29/17) gadoteridol (Unverified Allergy, Severe, Anaphylaxis, 05/29/17) iodixanol (Unverified Allergy, Severe, Anaphylaxis, 05/29/17) iohexol (Unverified Allergy, Severe, Anaphylaxis, 05/29/17) penicillin G (Unverified Allergy, Severe, "HOT THROAT", 05/29/17) Uncoded Allergies: RADIOISOTOPES (Allergy, Severe, 09/27/13) UNKONWN RXN, LISTED ON PATIENT PAPERWORK FROM [facility]. OBJECTIVE; Vital Signs Date Time Temp Pulse Resp B/P (MAP) Pulse Ox O2 Delivery O2 Flow Rate FiO2 06/11/17 11:30 35 06/11/17 11:21 35 06/11/17 11:21 99 35 06/11/17 10:00 70 06/11/17 08:00 35 06/11/17 08:00 74 06/11/17 08:00 99.9 74 18 122/59 (80) 94 06/11/17 07:43 19 06/11/17 07:13 96 35 06/11/17 06:00 73 06/11/17 04:30 98 35 06/11/17 04:00 79 06/11/17 04:00 35 06/11/17 04:00 100.5 79 115/56 (75) 100 06/11/17 02:00 73 06/11/17 01:15 100 35 06/11/17 00:00 71 06/11/17 00:00 35 06/11/17 00:00 99.6 71 116/58 (77) 100 06/10/17 22:15 100 35 06/10/17 22:00 75 06/10/17 20:00 35 06/10/17 20:00 79 06/10/17 20:00 101.4 79 118/58 (78) 98 06/10/17 19:00 99 35 06/10/17 18:00 82 06/10/17 16:00 70 06/10/17 16:00 35 06/10/17 16:00 98.8 79 24 117/58 (77) 98 06/10/17 15:10 95 35 06/10/17 15:10 35 06/10/17 14:00 70 Laboratory Tests Test 06/09/17 17:00 06/10/17 03:50 06/11/17 04:30 White Blood Count 12.3 TH/MM3 13.3 TH/MM3 13.7 TH/MM3 Red Blood Count 2.98 MIL/MM3 3.10 MIL/MM3 2.97 MIL/MM3 Hemoglobin 8.2 GM/DL 8.5 GM/DL 7.9 GM/DL Hematocrit 24.9 % 25.6 % 24.3 % Mean Corpuscular Volume 83.3 FL 82.6 FL 81.7 FL Mean Corpuscular Hemoglobin 27.5 PG 27.5 PG 26.6 PG Mean Corpuscular Hemoglobin Concent 33.0 % 33.3 % 32.5 % Red Cell Distribution Width 17.7 % 18.4 % 18.5 % Platelet Count 398 TH/MM3 434 TH/MM3 436 TH/MM3 Mean Platelet Volume 8.6 FL 8.6 FL 8.2 FL Neutrophils (%) (Auto) 80.8 % 79.5 % Lymphocytes (%) (Auto) 7.1 % 7.3 % Monocytes (%) (Auto) 7.8 % 9.7 % Eosinophils (%) (Auto) 3.4 % 2.7 % Basophils (%) (Auto) 0.9 % 0.8 % Neutrophils # (Auto) 10.7 TH/MM3 10.9 TH/MM3 Lymphocytes # (Auto) 0.9 TH/MM3 1.0 TH/MM3 Monocytes # (Auto) 1.0 TH/MM3 1.3 TH/MM3 Eosinophils # (Auto) 0.4 TH/MM3 0.4 TH/MM3 Basophils # (Auto) 0.1 TH/MM3 0.1 TH/MM3 CBC Comment AUTO DIFF AUTO DIFF Differential Comment AUTO DIFF CONFIRMED FINAL DIFF MANUAL Differential Total Cells Counted 100 Neutrophils % (Manual) 67 % Band Neutrophils % 17 % Lymphocytes % 3 % Monocytes % 4 % Eosinophils % 6 % Neutrophils # (Manual) 11.9 TH/MM3 Metamyelocytes 3 % Platelet Estimate NORMAL Platelet Morphology Comment CLUMPED Laboratory Tests Test 06/10/17 03:50 06/11/17 04:30 Blood Urea Nitrogen 26 MG/DL 26 MG/DL Creatinine 1.25 MG/DL 1.25 MG/DL Random Glucose 168 MG/DL 227 MG/DL Total Protein 6.0 GM/DL 5.9 GM/DL Albumin 1.5 GM/DL 1.5 GM/DL Calcium Level 7.5 MG/DL 7.6 MG/DL Alkaline Phosphatase 95 U/L 103 U/L Aspartate Amino Transf (AST/SGOT) 42 U/L 44 U/L Alanine Aminotransferase (ALT/SGPT) 30 U/L 33 U/L Total Bilirubin 0.3 MG/DL 0.3 MG/DL Sodium Level 148 MEQ/L 143 MEQ/L Potassium Level 3.7 MEQ/L 3.4 MEQ/L Chloride Level 112 MEQ/L 107 MEQ/L Carbon Dioxide Level 30.1 MEQ/L 29.0 MEQ/L Anion Gap 6 MEQ/L 7 MEQ/L Estimat Glomerular Filtration Rate 57 ML/MIN 57 ML/MIN Phosphorus Level 2.1 MG/DL Magnesium Level 1.9 MG/DL Microbiology Date/Time Source Procedure Growth Status 06/07/17 11:30 Sputum Expectorated Sputum Gram Stain - Final Complete 06/07/17 11:30 Sputum Culture - Final S. Aureus Mrsa Complete Imaging Chest X-Ray 06/07/17 0000 Signed Impressions: Service Date/Time: Wednesday, June 07, 2017 07:19 - CONCLUSION: ET tube in good position. Juan Carvalho MD FACR Abdomen X-Ray 06/05/17 0000 Signed Impressions: Service Date/Time: May 07:39 - CONCLUSION: Normal examination. The nasogastric is within the proximal stomach Desmond Hudson MD Head CT 06/04/17 0000 Signed Impressions: Service Date/Time: May 04:33 - CONCLUSION: 1. No acute intracranial abnormality seen. 2. Mild atrophy. 3. Persistent increased density within the right globe. Ap Quigley MD Head Magnetic Resonance Angiography 05/29/17 0000 Signed Impressions: Service Date/Time: May 18:31 - CONCLUSION: 1. Suboptimal exam degraded by motion as above. No definite occlusive disease. Nilson Jeffries MD Carotid Artery Ultrasound 05/29/17 0000 Signed Impressions: Service Date/Time: May 19:47 - CONCLUSION: Moderate visible plaque in both carotid arteries. Findings suggest at least a moderate stenosis. This would be better evaluated with CTA carotids. Nilson Jeffries MD Brain MRI 05/29/17 0000 Signed Impressions: Service Date/Time: May 18:31 - CONCLUSION: 1. There is increased signal in the posterior left MCA distribution on the diffusion weighted images characteristic of an acute or subacute infarct. Currently no mass shift or evidence for hemorrhage. Nilson Jeffries MD Abdomen/Pelvis CT 05/29/17 0000 Signed Impressions: Service Date/Time: May 18:10 - CONCLUSION: 1. No acute finding on CT abdomen and pelvis. 2. Calcified gallstones. 3. There is a small hiatal hernia. Distended bladder. 4. 2.3 cm lesion lower pole right kidney not clearly a cyst. Recommend renal ultrasound to assess for cyst versus solid mass. Nilson Jeffries MD Physical Exam GENERAL: No acute distress. HEENT: head atraumatic, left EOMI, No icterus. NECK: Supple. No adenopathy. LUNGS: Basilar rhonchi. CARDIAC: Regular rate and rhythm. No murmurs. ABDOMEN: Obese, Soft, non tender. EXTREMITIES: No clubbing, cyanosis or edema. SKIN: No rash. IMPRESSION: sp PEA sp stroke Fever secondary to pneumonia. MRSA PNA New acute VDRF RECOMMEND: Continue the zyvox po. Monitor the temp. Follow clinical response. May need to add gram negative if he continues if have temps. Chevy Melvin MD Jun 11, 2017 12:53
--- NOTE | 2017-06-11 14:04 | HHI.CCPN ---
Subjective Remarks/Hospital Course Patient is a 67-year-old white male was admitted to the [facility] on 05/30/17 with acute left MCA stroke with right hemiparesis. He has a past medical history significant for CHF with ejection fraction 25% (echo 06/01), Atrial fibrillation on Xarelto, chronic kidney disease stage III, rhabdomyolysis , Hypertension, Anemia, Hyperlipidemia, Diabetes Mellitus and Hypothyroidism. Apparently patient was in his regular state of health, improving right hemiparesis today am. A code blue was called overhead after the patient was found on the bed unresponsive and pulseless, which I responded immediately. CPR was started. See Code sheet for details-rhythm was pea with A. fib. Patient received 2 amp epinephrine, 1amp of bicarb. CPR continued and after total 5 min there was return of spontaneous circulation. I intubated patient during code, after return of spontaneous circulation. Patient was quickly moved to the ICU where resuscitation was continued with IV fluids boluses. I placed a right femoral arterial line for invasive cardiac/hemodynamic monitoring. As the blood pressure was trending down to low 90s systolic patient was started on Levophed infusion. I also placed a right subclavian central line. Patient remained in atrial fibrillation but blood pressure improved with map consistently above 65 with fluid resuscitation and Levophed infusion. I discussed with patient's guardian, who wants patient to be DNR, but wants to continue aggressive treatment. CT of the head is pending at this time. PE is unlikely as the patient had been on Xarelto for anticoagulation SUBJ 06/05/17: Intubated currently off sedation. Remains encephalopathic, sodium 150. Restart Lasix. Did not tolerate weaning trial due to apnea. Stat echo shows EF 20% 06/06 Reconsult: Rylie was called on floor for resp distress on arrival to [facility] patient was tachycardic, tachypneic and hypoxic with sats 80's on NRB. He was subsequently intubated and placed on mechanical ventilation. Patient was given Lasix 40mg IV. 06/08 Patient remains sedated and intubated. Afebrile. Renal function is improving with Cr: 1.55 today from 1.93 06/09: Remains sedated, orally intubated on mechanical ventilation. Hemoglobin 7.2 this morning. No melena or rectal bleeding overnight per discussion with RN 06/10: Remains sedated, orally intubated on mechanical ventilation. Received 1 unit PRBCs yesterday. 06/11: Remains sedated, orally intubated on mechanical ventilation. Daily C Pap trials. Objective Vital Signs Date Time Temp Pulse Resp B/P (MAP) Pulse Ox O2 Delivery O2 Flow Rate FiO2 06/11/17 12:00 90 06/11/17 12:00 100.3 26 88/60 (69) 94 06/11/17 12:00 35 06/08/17 19:12 Ventilator Intake and Output 06/11/17 06/11/17 06/12/17 08:00 16:00 00:00 Intake Total 1211 ml 210 ml Output Total 775.0 ml 0 ml Balance 436.0 ml 210 ml Result Diagram: 06/11/17 0430 06/11/17 0430 Imaging Last Impressions Chest X-Ray 06/07/17 0000 Signed Impressions: Service Date/Time: Wednesday, June 07, 2017 07:19 - CONCLUSION: ET tube in good position. Juan Carvalho MD FACR Abdomen X-Ray 06/05/17 0000 Signed Impressions: Service Date/Time: May 07:39 - CONCLUSION: Normal examination. The nasogastric is within the proximal stomach Desmond Hudson MD Head CT 06/04/17 0000 Signed Impressions: Service Date/Time: May 04:33 - CONCLUSION: 1. No acute intracranial abnormality seen. 2. Mild atrophy. 3. Persistent increased density within the right globe. Ap Quigley MD Head Magnetic Resonance Angiography 05/29/17 0000 Signed Impressions: Service Date/Time: May 18:31 - CONCLUSION: 1. Suboptimal exam degraded by motion as above. No definite occlusive disease. Nilson Jeffries MD Carotid Artery Ultrasound 05/29/17 0000 Signed Impressions: Service Date/Time: May 19:47 - CONCLUSION: Moderate visible plaque in both carotid arteries. Findings suggest at least a moderate stenosis. This would be better evaluated with CTA carotids. Nilson Jeffries MD Brain MRI 05/29/17 0000 Signed Impressions: Service Date/Time: May 18:31 - CONCLUSION: 1. There is increased signal in the posterior left MCA distribution on the diffusion weighted images characteristic of an acute or subacute infarct. Currently no mass shift or evidence for hemorrhage. Nilson Jeffries MD Abdomen/Pelvis CT 05/29/17 0000 Signed Impressions: Service Date/Time: May 18:10 - CONCLUSION: 1. No acute finding on CT abdomen and pelvis. 2. Calcified gallstones. 3. There is a small hiatal hernia. Distended bladder. 4. 2.3 cm lesion lower pole right kidney not clearly a cyst. Recommend renal ultrasound to assess for cyst versus solid mass. Nilson Jeffries MD Objective Remarks GENERAL: Elderly male lethargic, encephalopathic now intubated EYES: legally blind per previous notes ENT: Poor dentition. Dry oral mucosa. Orotracheally intubated CARDIOVASCULAR: Tachycardic,Irregular heart rate. Systolic murmur heard in all areas RESPIRATORY: Bilaterally equal breath sounds, diminished in the bases GASTROINTESTINAL: Protuberant abdomen, tympanic, improved with NG tube decompression MUSCULOSKELETAL: S/p right great toe and fifth toe amputation, Small ulcers on bilateral anterior fleming, Non stageable pressure ulcer on bilateral sole, eschar left lateral foot NEUROLOGICAL: Sedated, Intubated A/P Assessment and Plan NEURO: Metabolic encephalopathy Possible anoxic injury Status post left MCA stroke 6 days [employer] - Encephalopathy post code possible anoxic injury - CT of the head 06/04 -no acute changes, MRI 05/29 had show L MCA stroke - Diprivan infusion for sedation. Daily sedation vacation. RESP: Acute respiratory failure on mechanical ventilation - Continue with vent support keep sat >92% -Bronchodilators, ICU vent bundle. - SBT daily as farzad. CV: PEA arrest on 06/04 Cardiogenic shock-resolved Atrial fibrillation on chronic Xarelto Cardiomyopathy with EF 25% - Monitor HR and BP keep MAP>65mmHg - 2D Echo 06/01 with EF 25%. - IV Lasix 20 mg Q12 - Continue aspirin, Xarelto, Coreg 3.125mg BID. Not on Pk-I due to KATERIN GI: - IV Protonix - On tube feeds with Glucerna 1.5 with goal rate 45ml/hr : Chronic kidney disease - Monitor renal function, I/O's, electrolytes replacement as needed. -Renal is following- Dr. Martin. - Lasix 20mg IV BID -Place on Free water 250ml Q8 monitor sodium level. ID: -Pneumonia ( MRSA, E.coli) Sputum 06/04: MRSA, E.coli - Continue abx per ID ( Vanco, Cefepime stopped on 06/09). Started on Zyvox per ID HEME: - Monitor CBC, 1 unit PRBCs ordered for Hgb 7.2 on 06/09. ENDO: Hypothyroidism. - Sliding-scale insulin for glycemic control -Continue Synthroid. TSH: 1.2 PROPH: - Bilateral lower extremity SCDs. Continue Xarelto MSK: - Wound care consulted for bilateral sole pressure ulcer, eschar L lateral feet LINES: - Right subclavian central line placed 06/04/17 CODE STATUS DNR Level 3 Young Deluca MD Jun 11, 2017 14:04
--- NOTE | 2017-06-11 14:09 | HHI.HCPN ---
Reason for visit a. To assist with evaluation and management of symptoms including: dyspnea, debility, dysphagia b. To assist medical decision maker(s) with: better understanding of current medical conditions; weighing benefits/burdens of medical treatment options; making medical treatment decisions. . Subjective/Interval History Follow up visit for symptom management and clarification of medical treatment goals. Patient remains intubated, tolerating CPAP trail and sedation vacation. Patient is alert. He responds appropriately to yes/no questions by nodding/shaking his head. He is able to follow simple commands. Bilateral lower extremities with right great toe and fifth toe amputation. Skin is erythematous, dry with multiple ulcers that are covered in clean dry intact dressings. Patient complaining of back pain. PRN morphine and acetaminophen which is sparingly used. Febrile. T-max 101.4 Repeat sputum culture 06/07/17 + MRSA. On PO Zyvox; infectious disease following. Blood work: =WBC 13.7, hemoglobin 7.9, hematocrit 24.3, platelets 436, neutrophils 79.5% =Sodium 143, potassium 0.4, chloride 107, carbon dioxide 29.0, glucose 227, calcium 7.6, phosphorus 2.1, magnesium 1.9 =BUN: 26, creatinine 1.25, GFR 57 =Total bilirubin: 0.3, AST 44, ALT 33, alkaline phosphatase 103 =Total protein: 5.9, albumin 1. Patient tolerating TF. Occupational and physical therapy following. Discharge plan to return to SNF. . Family/friend interactions Spoke to Deborah Hankins, the patient's court appointed legal guardian, from [facility]. She states the patient was removed from his home and deemed incompetent; he does not have capacity to make decisions related to his medical care. We discussed patient's complex medical decision and recent decline with 4 hospitalizations since 02/02/2017. Questions answered to the best of my ability. Goals remain aggressive up to the point of cardiopulmonary resuscitation. . Advance Directives Advance Directive Specifics Documented care wishes: No documented care wishes are available at this time. . Objective Vital Signs Date Time Temp Pulse Resp B/P (MAP) Pulse Ox O2 Delivery O2 Flow Rate FiO2 06/11/17 12:00 90 06/11/17 12:00 100.3 90 26 88/60 (69) 94 06/11/17 12:00 35 06/11/17 11:30 35 06/11/17 11:21 35 06/11/17 11:21 99 35 06/11/17 10:00 70 06/11/17 08:00 35 06/11/17 08:00 74 06/11/17 08:00 99.9 74 18 122/59 (80) 94 06/11/17 07:43 19 06/11/17 07:13 96 35 06/11/17 06:00 73 06/11/17 04:30 98 35 06/11/17 04:00 79 06/11/17 04:00 35 06/11/17 04:00 100.5 79 115/56 (75) 100 06/11/17 02:00 73 06/11/17 01:15 100 35 06/11/17 00:00 71 06/11/17 00:00 35 06/11/17 00:00 99.6 71 116/58 (77) 100 06/10/17 22:15 100 35 06/10/17 22:00 75 06/10/17 20:00 35 06/10/17 20:00 79 06/10/17 20:00 101.4 79 118/58 (78) 98 06/10/17 19:00 99 35 06/10/17 18:00 82 06/10/17 16:00 70 06/10/17 16:00 35 06/10/17 16:00 98.8 79 24 117/58 (77) 98 06/10/17 15:10 95 35 06/10/17 15:10 35 06/10/17 14:00 70 Intake & Output 06/11/17 06/11/17 07:00 19:00 Intake Total 1211 ml 310 ml Output Total 775 ml 0 ml Balance 436 ml 310 ml IV Total 300 ml 310 ml Tube Feeding 411 ml Other 500 ml Output Urine Total 775 ml Tube Feeding Residual Discard 0 ml # Bowel Movements 4 . Physical Exam CONSTITUTIONAL/GENERAL: This is an adequately nourished patient, fragile appearing male patient who is intubated on mechanical ventilation. TUBES/LINES/DRAINS: PIV, CVL, Conde catheter, ETT, NGT, soft restraints SKIN: Generalized pallor. Right great toe and fifth toe status post amputation. Multiple ulcers on BLE with drsgs dry and intact HEAD: Atraumatic. Normocephalic. EYES: Legally blind per previous notes. Right eye closed, did not attempt open. Left eye with no scleral icterus. ENT: Orotracheally intubated. Poor dentition. Mucous membranes dry Nose without bleeding or purulent drainage. CARDIOVASCULAR: Regularly irregular. Peripheral pulses symmetrical RESPIRATORY/CHEST: Orotracheally intubated on mechanical ventilation-tolerating CPAP trials. Breath sounds diminished bilaterally, L > R. scattered rhonchi. GASTROINTESTINAL: Protuberant abdomen, tympanic, improved with NGT decompression. Tolerating artificial nutrition. GENITOURINARY: Without palpable bladder distension. Conde catheter in place. MUSCULOSKELETAL: Status post right great toe and fifth toe amputation. Small ulcers on bilateral anterior fleming. Non stageable pressure ulcer on bilateral sole, eschar left lateral foot. Bilateral lower extremities with atrophy LYMPHATICS: No palpable cervical or supraclavicular adenopathy. NEUROLOGICAL: He responds appropriately to yes/no questions by nodding/shaking his head. He is able to follow simple commands. PSYCHIATRIC: Unable to assess due to patient's clinical condition . Diagnostic Tests Laboratory Laboratory Tests Test 06/09/17 04:17 06/09/17 17:00 06/10/17 03:50 06/11/17 04:30 White Blood Count 11.8 TH/MM3 (4.0-11.0) 12.3 TH/MM3 (4.0-11.0) 13.3 TH/MM3 (4.0-11.0) 13.7 TH/MM3 (4.0-11.0) Red Blood Count 2.79 MIL/MM3 (4.50-5.90) 2.98 MIL/MM3 (4.50-5.90) 3.10 MIL/MM3 (4.50-5.90) 2.97 MIL/MM3 (4.50-5.90) Hemoglobin 7.2 GM/DL (13.0-17.0) 8.2 GM/DL (13.0-17.0) 8.5 GM/DL (13.0-17.0) 7.9 GM/DL (13.0-17.0) Hematocrit 22.8 % (39.0-51.0) 24.9 % (39.0-51.0) 25.6 % (39.0-51.0) 24.3 % (39.0-51.0) Mean Corpuscular Volume 81.9 FL (80.0-100.0) 83.3 FL (80.0-100.0) 82.6 FL (80.0-100.0) 81.7 FL (80.0-100.0) Mean Corpuscular Hemoglobin 26.0 PG (27.0-34.0) 27.5 PG (27.0-34.0) 27.5 PG (27.0-34.0) 26.6 PG (27.0-34.0) Mean Corpuscular Hemoglobin Concent 31.7 % (32.0-36.0) 33.0 % (32.0-36.0) 33.3 % (32.0-36.0) 32.5 % (32.0-36.0) Red Cell Distribution Width 19.1 % (11.6-17.2) 17.7 % (11.6-17.2) 18.4 % (11.6-17.2) 18.5 % (11.6-17.2) Platelet Count 375 TH/MM3 (150-450) 398 TH/MM3 (150-450) 434 TH/MM3 (150-450) 436 TH/MM3 (150-450) Mean Platelet Volume 7.9 FL (7.0-11.0) 8.6 FL (7.0-11.0) 8.6 FL (7.0-11.0) 8.2 FL (7.0-11.0) Neutrophils (%) (Auto) 79.1 % (16.0-70.0) 80.8 % (16.0-70.0) 79.5 % (16.0-70.0) Lymphocytes (%) (Auto) 8.5 % (9.0-44.0) 7.1 % (9.0-44.0) 7.3 % (9.0-44.0) Monocytes (%) (Auto) 8.6 % (0.0-8.0) 7.8 % (0.0-8.0) 9.7 % (0.0-8.0) Eosinophils (%) (Auto) 3.2 % (0.0-4.0) 3.4 % (0.0-4.0) 2.7 % (0.0-4.0) Basophils (%) (Auto) 0.6 % (0.0-2.0) 0.9 % (0.0-2.0) 0.8 % (0.0-2.0) Neutrophils # (Auto) 9.3 TH/MM3 (1.8-7.7) 10.7 TH/MM3 (1.8-7.7) 10.9 TH/MM3 (1.8-7.7) Lymphocytes # (Auto) 1.0 TH/MM3 (1.0-4.8) 0.9 TH/MM3 (1.0-4.8) 1.0 TH/MM3 (1.0-4.8) Monocytes # (Auto) 1.0 TH/MM3 (0-0.9) 1.0 TH/MM3 (0-0.9) 1.3 TH/MM3 (0-0.9) Eosinophils # (Auto) 0.4 TH/MM3 (0-0.4) 0.4 TH/MM3 (0-0.4) 0.4 TH/MM3 (0-0.4) Basophils # (Auto) 0.1 TH/MM3 (0-0.2) 0.1 TH/MM3 (0-0.2) 0.1 TH/MM3 (0-0.2) CBC Comment AUTO DIFF AUTO DIFF AUTO DIFF Differential Total Cells Counted 100 100 Neutrophils % (Manual) 74 % (16-70) 67 % (16-70) Band Neutrophils % 3 % (0-6) 17 % (0-6) Lymphocytes % 7 % (9-44) 3 % (9-44) Monocytes % 12 % (0-8) 4 % (0-8) Eosinophils % 3 % (0-4) 6 % (0-4) Neutrophils # (Manual) 9.2 TH/MM3 (1.8-7.7) 11.9 TH/MM3 (1.8-7.7) Metamyelocytes 1 % (0-1) 3 % (0-1) Differential Comment FINAL DIFF MANUAL AUTO DIFF CONFIRMED FINAL DIFF MANUAL Platelet Estimate NORMAL (NORMAL) NORMAL (NORMAL) Platelet Morphology Comment NORMAL (NORMAL) CLUMPED (NORMAL) Blood Urea Nitrogen 29 MG/DL (7-18) 26 MG/DL (7-18) 26 MG/DL (7-18) Creatinine 1.42 MG/DL (0.60-1.30) 1.25 MG/DL (0.60-1.30) 1.25 MG/DL (0.60-1.30) Random Glucose 173 MG/DL (74-106) 168 MG/DL (74-106) 227 MG/DL (74-106) Total Protein 5.8 GM/DL (6.4-8.2) 6.0 GM/DL (6.4-8.2) 5.9 GM/DL (6.4-8.2) Calcium Level 7.4 MG/DL (8.5-10.1) 7.5 MG/DL (8.5-10.1) 7.6 MG/DL (8.5-10.1) Sodium Level 148 MEQ/L (136-145) 148 MEQ/L (136-145) 143 MEQ/L (136-145) Potassium Level 4.0 MEQ/L (3.5-5.1) 3.7 MEQ/L (3.5-5.1) 3.4 MEQ/L (3.5-5.1) Chloride Level 111 MEQ/L (98-107) 112 MEQ/L (98-107) 107 MEQ/L (98-107) Carbon Dioxide Level 29.1 MEQ/L (21.0-32.0) 30.1 MEQ/L (21.0-32.0) 29.0 MEQ/L (21.0-32.0) Anion Gap 8 MEQ/L (5-15) 6 MEQ/L (5-15) 7 MEQ/L (5-15) Estimat Glomerular Filtration Rate 49 ML/MIN (>89) 57 ML/MIN (>89) 57 ML/MIN (>89) Protein Corrected Calcium 8.1 MG/DL (8.5-10.1) Albumin 1.5 GM/DL (3.4-5.0) 1.5 GM/DL (3.4-5.0) Alkaline Phosphatase 95 U/L (45-117) 103 U/L (45-117) Aspartate Amino Transf (AST/SGOT) 42 U/L (15-37) 44 U/L (15-37) Alanine Aminotransferase (ALT/SGPT) 30 U/L (12-78) 33 U/L (12-78) Total Bilirubin 0.3 MG/DL (0.2-1.0) 0.3 MG/DL (0.2-1.0) Phosphorus Level 2.1 MG/DL (2.5-4.9) Magnesium Level 1.9 MG/DL (1.5-2.5) . Result Diagram: 06/11/17 0430 06/11/17 0430 Procedures 06/04/2017: PEA arrest with CPR 06/04/2017: Intubation 06/04/2017: Right femur all arterial line placement 06/04/2017: Right subclavian central line placement 06/04/2017: NGT 06/05/2017: Extubation. 06/06/2017: Reintubation . Assessment and Plan Disease Oriented Problem List: (1) GERD (gastroesophageal reflux disease) (2) Mood disorder (3) COPD (chronic obstructive pulmonary disease) (4) Respiratory failure (5) CAD (coronary artery disease) (6) Chronic kidney disease, stage 3 (7) Atrial fibrillation (8) Hypertension (9) Diabetes (10) Hypothyroidism (11) S/P CABG x 3 Symptom Scale: Pertinent Non-Medical Issues Psychosocial: Jensen was born in [place]. Jensen has 4 half siblings (2 of which currently live in [place]). Jensen was raised by his Aunt. 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 Per previous note, his cousin (Krista) described him as a person that is "difficult to get along with" and strong willed. Jensen enjoys watching sports; including the Yankees and Giants. Jensen also has loved records and eating sweets. Patient is a LTC resident of [facility] and will return there at discharge. Spiritual: [place] Legal: Court appointed legal guardian as of 10/03/2015 - [employer] Deborah Hankins: [phone] (1st contact). Fernanda Bryant: [phone] Ethical issues impacting care: No known ethical issues impacting care at this time. . Important Contacts Public guardianship - Criminal Justice Program Director on aging of [facility]. Deborah Hankins: [phone] (1st contact) Fernanda Bryant: [phone] . Prognosis Patient with significant debility. He is a [facility]term [facility] resident who has been hospitalized 4 times in the past 4 months. He has multiple comorbid conditions including his recent MCA stroke, MRSA pneumonia, recurrent respiratory failure and cardiomyopathy with an EF of 25%. He remains encephalopathic status post PEA arrest with possible anoxic brain injury. Given patient's advanced age, complex medical history and baseline debility, he is at high risk for continued decline, complications and rehospitalizations. . Code Status: No Code Plan * NO CODE * [facility] DNR completed 06/09/2017. * Decision-making: Patient does not have insight or judgment related to his medical conditions; he is not capacitated to participate in establishment of medical treatment goals nor will he regain capacity. Court appointed legal guardian as of 10/03/2015 - ÁLVARO Hankins: [phone] (1st contact). Fernanda Bryant: [phone] * Discussed patient with nurse (Yolanda) * Spoke to Deborah Hankins, the patient's court appointed legal guardian, from [facility]. She states the patient was removed from his home and deemed incompetent; he does not have capacity to make decisions related to his medical care. We discussed patient's complex medical decision and recent decline with 4 hospitalizations since 02/02/2017. Questions answered to the best of my ability. Goals remain aggressive up to the point of cardiopulmonary resuscitation. * Hospice was introduced; Goals remain aggressive up to the point of cardiopulmonary resuscitation. * Symptom management-debility: Patient is a resident of [facility] with plan to discharge back to previous setting. Per legal guardian, patient was maximum assist 2 to transfer from bed to wheelchair prior to hospitalization. He was able to self propel his wheelchair using his feet. * Symptom management-dyspnea: Patient was reintubated 06/05/2017. Sputum culture on 06/04/2017 growing MRSA and Escherichia coli; follow-up sputum culture on 06/07/2017 growing MRSA. Possibly aspiration pneumonia. 06/11/2017 : Patient remains intubated, tolerating CPAP trail * Symptom management-dysphasia: Patient with moderate oropharyngeal dysphasia. Recommendations per speech therapy: 1) Mechanically soft diet with nectar consistency thickened liquids. 2) Medications presented crushed in pure. 3) Patient requires full feeding assistance. 4) Patient will require speech therapy after discharge. Tolerating artificial nutrition. . Attestation To help prompt me to consider important information that might be impacting today's encounter and assessment, information from prior notes written by myself or my colleagues may have been "brought forward" into today's note. My signature on this note, however, is an attestation that I personally performed the exam, history, and/or decision-making noted today, and, unless otherwise indicated, the interactions with patient, family, and staff as well as the review of records all occurred today. I also attest that the listed assessment and stated plan reflect my best clinical judgment today based on the combination of historical information, prior notes, and today's exam/ interactions. When time spent is documented, it refers only to time spent today by the signer, or if indicated, combined time spent today by collaborating physician/nurse practitioner. . Maria Antonia Whiting Jun 11, 2017 14:09
--- NOTE | 2017-06-11 17:20 | HHI.PR ---
Addendum to Inpatient Note Addendum Reason: Additional Documentation Additional Information I will be OOT thru 06/18/2017 Logan Valentine and Oleg[employer] willn cover for me for that period of time Traci Bello MD Jun 11, 2017 17:20
--- NOTE | 2017-06-11 17:27 | HHI.NPPN ---
Subjective General Problems: Anemia, Edema, Hypertension Renal Failure: Chronic, Acute, Stage III History of Present Illness 67-year-old male with a past medical history of ischemic heart disease, congestive heart failure, chronic kidney disease, atrial fibrillation, chronic anemia, diabetes mellitus, hypothyroidism, and peripheral vascular disease who was admitted with a complaint of worsening shortness of breath. I was called to see the patient because of elevated BUN and creatinine. The patient has known history of chronic kidney disease and his baseline creatinine seems to be in the range of 1.3-1.5 most of the time. Additional Remarks Patient remain intubated and sedated, open eyes ands responding to some commands. Objective Data Data 06/11/17 06/12/17 19:00 07:00 Intake Total 349 ml Output Total 0 ml Balance 349 ml IV Total 349 ml Tube Feeding Residual Discard 0 ml Vital Signs Date Time Temp Pulse Resp B/P (MAP) Pulse Ox O2 Delivery O2 Flow Rate FiO2 06/11/17 15:47 95 35 06/11/17 14:00 84 06/11/17 12:00 90 06/11/17 12:00 100.3 90 26 88/60 (69) 94 06/11/17 12:00 35 06/11/17 11:30 35 06/11/17 11:21 35 06/11/17 11:21 99 35 06/11/17 10:00 70 06/11/17 08:00 35 06/11/17 08:00 74 06/11/17 08:00 99.9 74 18 122/59 (80) 94 06/11/17 07:43 19 06/11/17 07:13 96 35 06/11/17 06:00 73 06/11/17 04:30 98 35 06/11/17 04:00 79 06/11/17 04:00 35 06/11/17 04:00 100.5 79 115/56 (75) 100 06/11/17 02:00 73 06/11/17 01:15 100 35 06/11/17 00:00 71 06/11/17 00:00 35 06/11/17 00:00 99.6 71 116/58 (77) 100 06/10/17 22:15 100 35 06/10/17 22:00 75 06/10/17 20:00 35 06/10/17 20:00 79 06/10/17 20:00 101.4 79 118/58 (78) 98 06/10/17 19:00 99 35 06/10/17 18:00 82 -: 06/11/17 0430 06/11/17 0430 Physical Exam General Appearance Remarks Intubated and sedated. Eyes Eye Exam: Pupils Equal Throat Throat Exam: Oral Mucosa Sisters & Moist Neck Neck Exam: Neck Supple Pulmonary Resp Exam: Breath Sounds Equal, No Distress, Rhonchi, Decreased Bases Cardiology CV Exam: Regular, Normal Sinus Rhythm Gastrointestinal/Abdomen GI Exam: Soft, Non-Tender, Bowel Sounds Present Extremeties Extremities Exam: Trace Edema (Bilateral scalling and dryness of skin, in lower leg.) Neurologic Neuro Exam: Sedated Assessment/Plan Assessment Summary: KATERIN/Acute Renal Failure, Hypertension, CKD Stage III Problem List: (1) Acute kidney injury ICD Codes: N17.9 - Acute kidney failure, unspecified (2) Altered mental status ICD Codes: R41.82 - Altered mental status Status: Acute (3) Hx of deep venous thrombosis ICD Codes: Z86.718 - History of deep venous thrombosis Status: Chronic (4) CHF (congestive heart failure) ICD Codes: I50.9 - Congestive heart failure Status: Resolved (5) Diabetes ICD Codes: E11.9 - Diabetes Status: Chronic (6) Hypothyroidism ICD Codes: E03.9 - Hypothyroidism, unspecified Status: Chronic (7) Hypertension ICD Codes: I10 - Hypertension Status: Chronic (8) Chronic kidney disease, stage 3 ICD Codes: N18.3 - Chronic kidney disease, stage 3 (moderate) (9) Rhabdomyolysis ICD Codes: M62.82 - Rhabdomyolysis Plan Patient has been non oliguric. Has chronic kidney disease with baseline Creatinine 1.3-1.5. Most likely has chronic kidney disease due to Hypertensive or renovascular disease. Now develop KATERIN, possibly due to Rhabdo. or Obstructive uropathy. Develop cardiac arrest and intubated. BP is now stable, Creatinine remain stable, possibly at baseline. Urine out put is good, on Lasix, follow the urine out put and BMP. Has low grade fever, on Zyvox and ID following. Problem Qualifiers (1) Hypertension: Qualified Codes: I10 - Essential (primary) hypertension Sunita Martin MD Jun 11, 2017 17:27
[2017-06-11] MEDS: PANTOPRAZOLE SODIUM 40 MG VIAL IV PUSH SCH (18:43)
[2017-06-11] MEDS: ATORVASTATIN 40 MG TAB PO SCH (20:08)
[2017-06-12] VITALS (31 sets, daily range): BP systolic 113–145; BP diastolic 54–65; PULSE 79–107; RESP 17–24; TEMP 99.2–101.9; O2SAT 92–99
[2017-06-12] MEDS: INSULIN ASPART SUPPLEMENTAL SCALE SQ SCH ×4 (01:19→17:18)
[2017-06-12] MEDS: LEVOTHYROXINE SODIUM 112 MCG TAB PO SCH (05:47)
[2017-06-12] MEDS: LEVOTHYROXINE SODIUM 25 MCG TAB PO SCH (05:47)
[2017-06-12] MEDS: LINEZOLID 600 MG TAB PO SCH ×2 (05:47→17:21)
[2017-06-12] MEDS: FREE WATER G-TUBE SCH ×3 (05:48→23:09)
[2017-06-12] MEDS: DOCUSATE SODIUM 50 MG/SENNA 8.6 MG TAB PO SCH ×2 (07:53→21:00)
[2017-06-12] MEDS: CARVEDILOL 3.125 MG TAB PO SCH ×2 (07:53→23:08)
[2017-06-12] MEDS: ASPIRIN 325 MG TAB PO SCH (07:53)
[2017-06-12] MEDS: FUROSEMIDE 40 MG/4 ML VIAL IV PUSH SCH ×3 (07:53→17:00)
[2017-06-12] MEDS: RIVAROXABAN 20 MG TAB PO SCH (07:54)
[2017-06-12] MEDS: SODIUM CHLORIDE 0.9% FLUSH 10 ML FLUSH IV FLUSH SCH ×2 (07:54→23:08)
[2017-06-12] MEDS: CARBAMIDE PEROXIDE 6.5% OTIC SOLN 15 ML BTL EACH EAR SCH (07:54)
[2017-06-12] MEDS: prednisoLONE ACETATE 1% OPHT SUSP 5 ML BTL RIGHT EYE SCH ×2 (07:54→21:00)
[2017-06-12] MEDS: CHLORHEXIDINE 0.12% (ORAL KIT) 15 ML CUP MT SCH ×2 (07:55→23:08)
--- NOTE | 2017-06-12 08:15 | HHI.CCPN ---
Subjective Remarks/Hospital Course Patient is a 67-year-old white male was admitted to the [facility] service on 05/30/17 with acute left MCA stroke with right hemiparesis. He has a past medical history significant for CHF with ejection fraction 25% (echo 06/01), Atrial fibrillation on Xarelto, chronic kidney disease stage III, rhabdomyolysis , Hypertension, Anemia, Hyperlipidemia, Diabetes Mellitus and Hypothyroidism. Apparently patient was in his regular state of health, improving right hemiparesis today am. A code blue was called overhead after the patient was found on the bed unresponsive and pulseless, which I responded immediately. CPR was started. See Code sheet for details-rhythm was pea with A. fib. Patient received 2 amp epinephrine, 1amp of bicarb. CPR continued and after total 5 min there was return of spontaneous circulation. I intubated patient during code, after return of spontaneous circulation. Patient was quickly moved to the ICU where resuscitation was continued with IV fluids boluses. I placed a right femoral arterial line for invasive cardiac/hemodynamic monitoring. As the blood pressure was trending down to low 90s systolic patient was started on Levophed infusion. I also placed a right subclavian central line. Patient remained in atrial fibrillation but blood pressure improved with map consistently above 65 with fluid resuscitation and Levophed infusion. I discussed with patient's guardian, who wants patient to be DNR, but wants to continue aggressive treatment. CT of the head is pending at this time. PE is unlikely as the patient had been on Xarelto for anticoagulation SUBJ 06/05/17: Intubated currently off sedation. Remains encephalopathic, sodium 150. Restart Lasix. Did not tolerate weaning trial due to apnea. Stat echo shows EF 20% 06/06 Reconsult: Rylie was called on floor for resp distress on arrival to [facility] patient was tachycardic, tachypneic and hypoxic with sats 80's on NRB. He was subsequently intubated and placed on mechanical ventilation. Patient was given Lasix 40mg IV. 06/08 Patient remains sedated and intubated. Afebrile. Renal function is improving with Cr: 1.55 today from 1.93 06/09: Remains sedated, orally intubated on mechanical ventilation. Hemoglobin 7.2 this morning. No melena or rectal bleeding overnight per discussion with RN 06/10: Remains sedated, orally intubated on mechanical ventilation. Received 1 unit PRBCs yesterday. 06/11: Remains sedated, orally intubated on mechanical ventilation. Daily C Pap trials. 06/12: failed cpap yesterday for weakness and tachypnea. Objective Vital Signs Date Time Temp Pulse Resp B/P (MAP) Pulse Ox O2 Delivery O2 Flow Rate FiO2 06/12/17 06:00 90 06/12/17 04:00 99.2 17 115/57 (76) 92 06/12/17 04:00 35 06/08/17 19:12 Ventilator Intake and Output 06/12/17 06/12/17 06/13/17 08:00 16:00 00:00 Intake Total 1335 ml Output Total 550 ml Balance 785 ml Result Diagram: 06/11/17 0430 06/11/17 0430 Imaging Last Impressions Chest X-Ray 06/07/17 0000 Signed Impressions: Service Date/Time: Wednesday, June 07, 2017 07:19 - CONCLUSION: ET tube in good position. Juan Carvalho MD FACR Abdomen X-Ray 06/05/17 0000 Signed Impressions: Service Date/Time: May 07:39 - CONCLUSION: Normal examination. The nasogastric is within the proximal stomach Desmond Hudson MD Head CT 06/04/17 0000 Signed Impressions: Service Date/Time: May 04:33 - CONCLUSION: 1. No acute intracranial abnormality seen. 2. Mild atrophy. 3. Persistent increased density within the right globe. Ap Quigley MD Head Magnetic Resonance Angiography 05/29/17 0000 Signed Impressions: Service Date/Time: May 18:31 - CONCLUSION: 1. Suboptimal exam degraded by motion as above. No definite occlusive disease. Nilson Jeffries MD Carotid Artery Ultrasound 05/29/17 0000 Signed Impressions: Service Date/Time: May 19:47 - CONCLUSION: Moderate visible plaque in both carotid arteries. Findings suggest at least a moderate stenosis. This would be better evaluated with CTA carotids. Nilson Jeffries MD Brain MRI 05/29/17 0000 Signed Impressions: Service Date/Time: May 18:31 - CONCLUSION: 1. There is increased signal in the posterior left MCA distribution on the diffusion weighted images characteristic of an acute or subacute infarct. Currently no mass shift or evidence for hemorrhage. Nilson Jeffries MD Abdomen/Pelvis CT 05/29/17 0000 Signed Impressions: Service Date/Time: May 18:10 - CONCLUSION: 1. No acute finding on CT abdomen and pelvis. 2. Calcified gallstones. 3. There is a small hiatal hernia. Distended bladder. 4. 2.3 cm lesion lower pole right kidney not clearly a cyst. Recommend renal ultrasound to assess for cyst versus solid mass. Nilson Jeffries MD Objective Remarks GENERAL: Elderly male lethargic, encephalopathic EYES: legally blind per previous notes ENT: Poor dentition. Orotracheally intubated CARDIOVASCULAR: Tachycardic,Irregular heart rate. Systolic murmur heard in all areas RESPIRATORY: Bilaterally equal breath sounds, diminished in the bases GASTROINTESTINAL: Protuberant abdomen, tympanic, improved with NG tube decompression MUSCULOSKELETAL: S/p right great toe and fifth toe amputation, Small ulcers on bilateral anterior fleming, Non stageable pressure ulcer on bilateral sole, eschar left lateral foot NEUROLOGICAL: Sedated, Intubated, RASS -1. A/P Assessment and Plan Assessment: 67yM with encephalopathy and respiratory failure that is not improving after 2 weeks. now DNR. will likely need to discuss options with regards to trach vs. palliative withdraw of care. NEURO: Metabolic encephalopathy Hypoxic Ischemic Encephalopathy Status post left MCA stroke 6 days [employer] - Encephalopathy post code probable anoxic injury - CT of the head 06/04 -no acute changes, MRI 05/29 had show L MCA stroke - Diprivan infusion for sedation. Daily sedation vacation. RESP: Acute hypoxic respiratory failure on mechanical ventilation - Continue with vent support keep sat >92% -Bronchodilators, ICU vent bundle. - SBT daily as farzad. CV: PEA arrest on 06/04 Cardiogenic shock-resolved Atrial fibrillation on chronic Xarelto Cardiomyopathy with EF 25% - Monitor HR and BP keep MAP>65mmHg - 2D Echo 06/01 with EF 25%. - increase lasix to 40mg iv q8h - Continue aspirin, Xarelto, Coreg 3.125mg BID. Not on Pk-I due to KATERIN GI: - switch to PO pepcid, stop iv ppi. - On tube feeds with Glucerna 1.5 with goal rate 45ml/hr : Chronic kidney disease, uknown baseline stage. - Monitor renal function, I/O's, electrolytes replacement as needed. -Renal is following- Dr. Martin. - increase lasix to 40mg iv q8h - Free water 250ml Q8 monitor sodium level. ID: -Pneumonia ( MRSA, E.coli) Sputum 06/04: MRSA, E.coli - Continue abx per ID ( Vanco, Cefepime stopped on 06/09). Started on Zyvox per ID HEME: - Monitor CBC, 1 unit PRBCs ordered for Hgb 7.2 on 06/09. ENDO: Hypothyroidism. - Sliding-scale insulin for glycemic control -Continue Synthroid. TSH: 1.2 PROPH: - Bilateral lower extremity SCDs. Continue Xarelto MSK: - Wound care consulted for bilateral sole pressure ulcer, eschar L lateral feet LINES: - Right subclavian central line placed 06/04/17 CODE STATUS DNR Maldonado Mitchell MD Jun 12, 2017 08:14
--- NOTE | 2017-06-12 09:32 | HHI.FPPN ---
Subjective Remarks Patient seen and examined this morning. Currently intubated on CPAP, off sedation. Follows commands well. Fever of 101.0 overnight. Objective Vitals Vital Signs Date Time Temp Pulse Resp B/P (MAP) Pulse Ox O2 Delivery O2 Flow Rate FiO2 06/12/17 08:04 35 06/12/17 08:04 99 35 06/12/17 08:00 35 06/12/17 06:00 90 06/12/17 04:00 99.2 79 17 115/57 (76) 92 06/12/17 04:00 81 06/12/17 04:00 35 06/12/17 03:45 80 06/12/17 03:38 98 35 06/12/17 03:30 81 06/12/17 03:15 81 06/12/17 03:00 80 06/12/17 02:45 83 06/12/17 02:30 80 06/12/17 02:15 80 06/12/17 02:00 80 06/12/17 02:00 80 06/12/17 01:45 79 06/12/17 01:30 81 06/12/17 01:15 80 06/12/17 01:00 80 06/12/17 00:45 80 06/12/17 00:30 81 06/12/17 00:15 79 06/12/17 00:00 35 06/12/17 00:00 81 06/12/17 00:00 81 06/12/17 00:00 101.0 81 113/54 (73) 98 06/11/17 23:20 100 35 06/11/17 22:00 81 06/11/17 20:00 80 06/11/17 20:00 35 06/11/17 20:00 100.0 80 17 127/59 (81) 97 06/11/17 19:39 100 35 06/11/17 18:00 80 06/11/17 16:00 100.8 82 28 131/61 (84) 96 06/11/17 16:00 82 06/11/17 16:00 35 06/11/17 15:47 95 35 06/11/17 14:00 84 06/11/17 12:00 90 06/11/17 12:00 100.3 90 26 88/60 (69) 94 06/11/17 12:00 35 06/11/17 11:30 35 06/11/17 11:21 35 06/11/17 11:21 99 35 06/11/17 10:00 70 I/O 06/11/17 06/11/17 06/11/17 06/12/17 06/12/17 06/12/17 07:00 15:00 23:00 07:00 15:00 23:00 Intake Total 1111 ml 349 ml 880 ml 1335 ml 42 ml Output Total 775 ml 0 ml 400.0 ml 550 ml 0 ml Balance 336 ml 349 ml 480.0 ml 785 ml 42 ml IV Total 200 ml 349 ml 100 ml 215 ml 42 ml Tube Feeding 411 ml 330 ml 620 ml Tube Irrigant 250 ml Other 500 ml 200 ml 500 ml Output Urine Total 775 ml 400 ml 550 ml Tube Feeding Residual Discard 0 ml 0 ml 0 ml # Bowel Movements 4 1 1 Result Diagram: 06/11/1742906/11/17 043 Objective Remarks GENERAL: elderly man, intubated, laying in bed SKIN: scaling and dryness of right and left leg EYES: legally blind, yellow crusting of both eyes ENT: dental caries, dry crusting of lips CARDIOVASCULAR: Regular rate and rhythm RESPIRATORY: decreased breath sounds in b/l bases. Coarse breath sounds throughout. Currently intubated on CPAP GASTROINTESTINAL: protuberant abdomen, BS+ MUSCULOSKELETAL: contractures of right and left hand, right great toe and fifth toe amputation, skin is erythematous, dry, several ulcers on lower extremities, covered in clean dry intact dressings NEUROLOGICAL: Makes eye contact, follows commands A/P Assessment and Plan 67 year old male with CHF (EF 35%), HTN, CKD stage 3, CAD s/p 3 vessel CABG, Afib on xarelto, HTN, HLD, DM admitted for acute infarct of posterior left MCA. Currently on empiric antibiotics due to meeting sepsis criteria. Discharge Planning Unclear timetable at this time PT- return to SNF at [facility]- patient will require speech therapy after discharge OT- OT at rehab, SNF Problem List: (1) Pneumonia ICD Codes: J18.9 - Pneumonia Status: Acute Plan: Sputum culture grew MRSA and E. Coli. Possibly aspiration pneumonia ID consulted-appreciate recs. -Linezolid 600 mg Q12 ABx history - cipro/flagyl (06/07) -Started Cefepime (06-07 - 06/10 ) -Continue Vancomycin (06/04 - 06/09) (2) Mechanically assisted ventilation ICD Codes: Z99.11 - Mechanically assisted ventilation Status: Resolved Plan: Extubated 06/05, status post cardiac arrest and return of spontaneous circulation on 06/04. Reintubated 06/07 for respiratory distress. -Continue ICU management [employer] Car [employer] consulted-appreciate recs -CPAP trials -Palliative care consulted (3) Ischemic stroke ICD Codes: I63.9 - Cerebral infarction, unspecified Status: Acute Plan: Patient presented with aphasia and left-sided weakness and mild right- sided weakness upon arrival to ED. Brain MRI demonstrated increased signal in the posterior left MCA distribution on the diffusion of weighted images characteristic of an acute or subacute infarct. Currently no mass shift or evidence hemorrhage. Carotid US: moderate visble plaque in both carotid arteries, findings suggest at least a moderate stenosis. possible significant carotid disease, though not a good candidate for further imaging of the carotids at this point Neurology consulted, recs appreciated. -Continue aspirin 325 mg PO daily -Continue Xarelto 20mg PO daily -Physical therapy (4) Sepsis ICD Codes: A41.9 - Sepsis Status: Acute Plan: ID consulted-appreciate recs -Abx per ID as above (5) Congestive heart failure ICD Codes: I50.9 - Heart failure, unspecified Status: Chronic Plan: Echo form 03/14/17 demonstrated 35% ejection fraction CXR 06/01 revealed cardiomegaly and stable compared to CXR 05/22/17, which revealed slight blunting of the left costophrenic sulcus suggesting a small left pleural effusion CXR 06/01 demonstrated moderate pulmonary vascular congestion Echo 06/01: mildly dilated LV, EF 25%, mild to moderate aortic sclerosis Echo 06/04: EF 20% -Lasix 20mg PO BID -Monitor HR and BP -Coreg 3.125mg BID (6) Chronic kidney disease, stage 3 ICD Codes: N18.3 - Chronic kidney disease, stage 3 (moderate) Plan: Baseline Cr. 1.3-1.5; Stable around 1.2-1.6 -Continue to monitor -Nephrology consulted, recs appreciated -Avoid nephrotoxins -Follow I/O (7) Rhabdomyolysis ICD Codes: M62.82 - Rhabdomyolysis Plan: Elevated creatine kinase 2533 most likely due to tremors, decreased to 1397 Improving NS 125mls/hr Continue to monitor Nephrology consulted, appreciate recs (8) Atrial fibrillation ICD Codes: I48.91 - Atrial fibrillation Status: Chronic Plan: -Xarelto 20mg PO daily (9) Hypertension ICD Codes: I10 - Hypertension Status: Chronic Plan: -Continue home meds: Coreg 6.25 mg PO q12 Losartan 50mg PO daily (10) Neurogenic bladder ICD Codes: N31.9 - Neuromuscular dysfunction of bladder, unspecified Plan: Neurogenic bladder due to stroke -Conde catheter placed (11) Hyperlipidemia ICD Codes: E78.5 - Hyperlipidemia Status: Chronic Plan: -Continue Atorvastatin 40mg PO HS (12) Hypothyroidism ICD Codes: E03.9 - Hypothyroidism, unspecified Status: Chronic Plan: -Continue Levothyroxine 112mcg PO daily (13) Diabetes ICD Codes: E11.9 - Diabetes Status: Chronic Plan: -Low dose SS -Held home insulin (14) Nutrition, metabolism, and development symptoms ICD Codes: R63.8 - Other symptoms and signs concerning food and fluid intake Status: Acute Plan: Fluids: Normal saline Diet: Tube feeds Electrolytes: monitor and replace as needed DVT ppx: Xarelto, SCDs Problem Qualifiers (1) Pneumonia: Qualified Codes: J15.212 - Pneumonia due to methicillin resistant Staphylococcus aureus (2) Congestive heart failure: Qualified Codes: I50.9 - Heart failure, unspecified (3) Atrial fibrillation: Qualified Codes: I48.2 - Chronic atrial fibrillation (4) Hypertension: Qualified Codes: I10 - Essential (primary) hypertension Jermaine Bell MD R1 Jun 12, 2017 09:32
[2017-06-12] MEDS: FAMOTIDINE 40 MG/5 ML LIQ 50 ML BTL NG SCH ×2 (09:41→21:00)
--- NOTE | 2017-06-12 11:20 | HHI.HCPN ---
Reason for visit a. To assist with evaluation and management of symptoms including: dyspnea, debility, dysphagia, pain b. To assist medical decision maker(s) with: better understanding of current medical conditions; weighing benefits/burdens of medical treatment options; making medical treatment decisions. . Subjective/Interval History Follow up visit for symptom management and clarification of medical treatment goals. Patient remains intubated, attempting daily CPAP trails with sedation vacation. Failed CPAP trial yesterday 06/11/2017 because of weakness and tachypnea. Patient is awake but is less interactive today than yesterday. Follows some simple commands. Bilateral lower extremities with right great toe and fifth toe amputation. Skin is erythematous, dry with multiple ulcers that are covered in clean dry intact dressings. Febrile. T-max 101.7 Repeat sputum culture 06/07/17 + MRSA. Infectious disease continues to follow. On PO Zyvox for MRSA, will add Azethreonam for gram-negative coverage Blood work: =WBC 16.9, hemoglobin 8.2, hematocrit 26.6, platelets 499 =Sodium 41, potassium 3.8, chloride 104, carbon dioxide 27.8, glucose 343, calcium 7.7 Tolerating tube feedings with concern 1.5 with: 345 mL per hour. Total protein : 5.9, albumin 1. BUN: 77, creatinine 1.33, GFR 53. Nephrology following. Furosemide was increased to 40 mg IV every 8 hours; free water 25 mL every 8 hours. Will continue to monitor I/O's and sodium, electrolytes replacement as needed. Patient complaining of back pain. Per nursing report, patient has a large ulcer on his back with necrosis. PRN morphine is available; patient receiving acetaminophen for elevated temperature. . Advance Directives Advance Directive Specifics Documented care wishes: No documented care wishes are available at this time. . Objective Vital Signs Date Time Temp Pulse Resp B/P (MAP) Pulse Ox O2 Delivery O2 Flow Rate FiO2 06/12/17 10:00 107 06/12/17 08:04 35 06/12/17 08:04 99 35 06/12/17 08:00 35 06/12/17 08:00 100.4 95 24 145/65 (91) 97 06/12/17 08:00 95 06/12/17 06:00 90 06/12/17 04:00 99.2 79 17 115/57 (76) 92 06/12/17 04:00 81 06/12/17 04:00 35 06/12/17 03:45 80 06/12/17 03:38 98 35 06/12/17 03:30 81 06/12/17 03:15 81 06/12/17 03:00 80 06/12/17 02:45 83 06/12/17 02:30 80 06/12/17 02:15 80 06/12/17 02:00 80 06/12/17 02:00 80 06/12/17 01:45 79 06/12/17 01:30 81 06/12/17 01:15 80 06/12/17 01:00 80 06/12/17 00:45 80 06/12/17 00:30 81 06/12/17 00:15 79 06/12/17 00:00 35 06/12/17 00:00 81 06/12/17 00:00 81 06/12/17 00:00 101.0 81 113/54 (73) 98 06/11/17 23:20 100 35 06/11/17 22:00 81 06/11/17 20:00 80 06/11/17 20:00 35 06/11/17 20:00 100.0 80 17 127/59 (81) 97 06/11/17 19:39 100 35 06/11/17 18:00 80 06/11/17 16:00 100.8 82 28 131/61 (84) 96 06/11/17 16:00 82 06/11/17 16:00 35 06/11/17 15:47 95 35 06/11/17 14:00 84 06/11/17 12:00 90 06/11/17 12:00 100.3 90 26 88/60 (69) 94 06/11/17 12:00 35 06/11/17 11:30 35 06/11/17 11:21 35 06/11/17 11:21 99 35 Intake & Output 06/12/17 06/12/17 07:00 19:00 Intake Total 1435 ml 42 ml Output Total 550 ml 0 ml Balance 885 ml 42 ml IV Total 315 ml 42 ml Tube Feeding 620 ml Other 500 ml Output Urine Total 550 ml Tube Feeding Residual Discard 0 ml 0 ml # Bowel Movements 1 . Physical Exam CONSTITUTIONAL/GENERAL: This is an adequately nourished patient, fragile appearing male patient who is intubated on mechanical ventilation. TUBES/LINES/DRAINS: PIV, CVL, Conde catheter, ETT, NGT, soft restraints SKIN: Generalized pallor. Right great toe and fifth toe status post amputation. Multiple ulcers on BLE with drsgs dry and intact HEAD: Atraumatic. Normocephalic. EYES: Legally blind per previous notes. Right eye closed, did not attempt open. Left eye with no scleral icterus. ENT: Orotracheally intubated. Poor dentition. Mucous membranes dry. Nose without bleeding or purulent drainage. CARDIOVASCULAR: Sinus rhythm. No JVD. Peripheral pulses symmetrical RESPIRATORY/CHEST: Orotracheally intubated on mechanical ventilation-tolerating CPAP trials. Breath sounds diminished bilaterally, L > R. scattered rhonchi. GASTROINTESTINAL: Tolerating artificial nutrition at goal. Abdomen is firm, non-tender. Active bowel sounds 4 quadrants GENITOURINARY: Without palpable bladder distension. Urinary catheter in place. MUSCULOSKELETAL: Status post right great toe and fifth toe amputation. Small ulcers on bilateral anterior fleming. Non stageable pressure ulcer on bilateral sole, eschar left lateral foot. Bilateral lower extremities with atrophy LYMPHATICS: No palpable cervical or supraclavicular adenopathy. NEUROLOGICAL: Less interactive today. Lethargic and weak. Following some simple commands PSYCHIATRIC: Unable to assess due to patient's clinical condition . Diagnostic Tests Laboratory Laboratory Tests Test 06/09/17 17:00 06/10/17 03:50 06/11/17 04:30 White Blood Count 12.3 TH/MM3 (4.0-11.0) 13.3 TH/MM3 (4.0-11.0) 13.7 TH/MM3 (4.0-11.0) Red Blood Count 2.98 MIL/MM3 (4.50-5.90) 3.10 MIL/MM3 (4.50-5.90) 2.97 MIL/MM3 (4.50-5.90) Hemoglobin 8.2 GM/DL (13.0-17.0) 8.5 GM/DL (13.0-17.0) 7.9 GM/DL (13.0-17.0) Hematocrit 24.9 % (39.0-51.0) 25.6 % (39.0-51.0) 24.3 % (39.0-51.0) Mean Corpuscular Volume 83.3 FL (80.0-100.0) 82.6 FL (80.0-100.0) 81.7 FL (80.0-100.0) Mean Corpuscular Hemoglobin 27.5 PG (27.0-34.0) 27.5 PG (27.0-34.0) 26.6 PG (27.0-34.0) Mean Corpuscular Hemoglobin Concent 33.0 % (32.0-36.0) 33.3 % (32.0-36.0) 32.5 % (32.0-36.0) Red Cell Distribution Width 17.7 % (11.6-17.2) 18.4 % (11.6-17.2) 18.5 % (11.6-17.2) Platelet Count 398 TH/MM3 (150-450) 434 TH/MM3 (150-450) 436 TH/MM3 (150-450) Mean Platelet Volume 8.6 FL (7.0-11.0) 8.6 FL (7.0-11.0) 8.2 FL (7.0-11.0) Neutrophils (%) (Auto) 80.8 % (16.0-70.0) 79.5 % (16.0-70.0) Lymphocytes (%) (Auto) 7.1 % (9.0-44.0) 7.3 % (9.0-44.0) Monocytes (%) (Auto) 7.8 % (0.0-8.0) 9.7 % (0.0-8.0) Eosinophils (%) (Auto) 3.4 % (0.0-4.0) 2.7 % (0.0-4.0) Basophils (%) (Auto) 0.9 % (0.0-2.0) 0.8 % (0.0-2.0) Neutrophils # (Auto) 10.7 TH/MM3 (1.8-7.7) 10.9 TH/MM3 (1.8-7.7) Lymphocytes # (Auto) 0.9 TH/MM3 (1.0-4.8) 1.0 TH/MM3 (1.0-4.8) Monocytes # (Auto) 1.0 TH/MM3 (0-0.9) 1.3 TH/MM3 (0-0.9) Eosinophils # (Auto) 0.4 TH/MM3 (0-0.4) 0.4 TH/MM3 (0-0.4) Basophils # (Auto) 0.1 TH/MM3 (0-0.2) 0.1 TH/MM3 (0-0.2) CBC Comment AUTO DIFF AUTO DIFF Differential Comment AUTO DIFF CONFIRMED FINAL DIFF MANUAL Blood Urea Nitrogen 26 MG/DL (7-18) 26 MG/DL (7-18) Creatinine 1.25 MG/DL (0.60-1.30) 1.25 MG/DL (0.60-1.30) Random Glucose 168 MG/DL (74-106) 227 MG/DL (74-106) Total Protein 6.0 GM/DL (6.4-8.2) 5.9 GM/DL (6.4-8.2) Albumin 1.5 GM/DL (3.4-5.0) 1.5 GM/DL (3.4-5.0) Calcium Level 7.5 MG/DL (8.5-10.1) 7.6 MG/DL (8.5-10.1) Alkaline Phosphatase 95 U/L (45-117) 103 U/L (45-117) Aspartate Amino Transf (AST/SGOT) 42 U/L (15-37) 44 U/L (15-37) Alanine Aminotransferase (ALT/SGPT) 30 U/L (12-78) 33 U/L (12-78) Total Bilirubin 0.3 MG/DL (0.2-1.0) 0.3 MG/DL (0.2-1.0) Sodium Level 148 MEQ/L (136-145) 143 MEQ/L (136-145) Potassium Level 3.7 MEQ/L (3.5-5.1) 3.4 MEQ/L (3.5-5.1) Chloride Level 112 MEQ/L (98-107) 107 MEQ/L (98-107) Carbon Dioxide Level 30.1 MEQ/L (21.0-32.0) 29.0 MEQ/L (21.0-32.0) Anion Gap 6 MEQ/L (5-15) 7 MEQ/L (5-15) Estimat Glomerular Filtration Rate 57 ML/MIN (>89) 57 ML/MIN (>89) Differential Total Cells Counted 100 Neutrophils % (Manual) 67 % (16-70) Band Neutrophils % 17 % (0-6) Lymphocytes % 3 % (9-44) Monocytes % 4 % (0-8) Eosinophils % 6 % (0-4) Neutrophils # (Manual) 11.9 TH/MM3 (1.8-7.7) Metamyelocytes 3 % (0-1) Platelet Estimate NORMAL (NORMAL) Platelet Morphology Comment CLUMPED (NORMAL) Phosphorus Level 2.1 MG/DL (2.5-4.9) Magnesium Level 1.9 MG/DL (1.5-2.5) . Result Diagram: 06/11/17 0430 06/11/17 0430 Procedures 06/04/2017: PEA arrest with CPR 06/04/2017: Intubation 06/04/2017: Right femur all arterial line placement 06/04/2017: Right subclavian central line placement 06/04/2017: NGT 06/05/2017: Extubation. 06/06/2017: Reintubation . Assessment and Plan Disease Oriented Problem List: (1) GERD (gastroesophageal reflux disease) (2) Mood disorder (3) COPD (chronic obstructive pulmonary disease) (4) Respiratory failure (5) CAD (coronary artery disease) (6) Chronic kidney disease, stage 3 (7) Atrial fibrillation (8) Hypertension (9) Diabetes (10) Hypothyroidism (11) S/P CABG x 3 Symptom Scale: Pertinent Non-Medical Issues Psychosocial: Jensen was born in [place]. Jensen has 4 half siblings (2 of which currently live in [place]). Jensen was raised by his Aunt. 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 Per previous note, his cousin (Krista) described him as a person that is "difficult to get along with" and strong willed. Jensen enjoys watching sports; including the Yankees and Giants. Jensen also has loved records and eating sweets. Patient is a LTC resident of [facility] and will return there at discharge. Spiritual: [employer] Legal: Court appointed legal guardian as of 10/03/2015 - [employer] Deborah Hankins: [phone] (1st contact). Fernanda Bryant: [phone] Ethical issues impacting care: No known ethical issues impacting care at this time. . Important Contacts Public guardianship - [employer] Operator on aging of [facility]. Deborah Hankins: [phone] (1st contact) Fernanda Bryant: [phone] . Prognosis Patient with significant debility. He is a long-term snf resident who has been hospitalized 4 times in the past 4 months. He has multiple comorbid conditions including his recent MCA stroke, MRSA pneumonia, recurrent respiratory failure and cardiomyopathy with an EF of 25%. He remains encephalopathic status post PEA arrest with possible anoxic brain injury. Given patient's advanced age, complex medical history and baseline debility, he is at high risk for continued decline, complications and rehospitalizations. . Code Status: No Code Plan * NO CODE * [facility] DNR completed 06/09/2017. * Decision-making: Patient does not have insight or judgment related to his medical conditions; he is not capacitated to participate in establishment of medical treatment goals nor will he regain capacity. Court appointed legal guardian as of 10/03/2015 - [employer] Deborah Cr: [phone] (1st contact). Fernanda Bryant: [phone] * Discussed patient with nurse (Yolanda) and Dr. Mitchell. Spoke with Deborah Hankins from [facility]. * Goals remain aggressive up to the point of cardiopulmonary resuscitation. * Patient was admitted on 05/29/2017. He remains intubated on mechanical ventilation with multiple life limiting conditions. A transition to comfort focused care with hospice services is medically appropriate when/if medical treatment goals become comfort oriented. A letter indicating the patient is hospice appropriate was composed per legal guardian's (Deborah Hankins) request and was placed on the patient's chart awaiting physician signature. * Symptom management-debility: Patient is a resident of [facility] with plan to discharge back to previous setting. Per legal guardian, patient was maximum assist 2 to transfer from bed to wheelchair prior to hospitalization. He was able to self propel his wheelchair using his feet. * Symptom management-dyspnea: Patient was reintubated 06/05/2017. Sputum culture on 06/04/2017 growing MRSA and Escherichia coli; follow-up sputum culture on 06/07/2017 growing MRSA. Possibly aspiration pneumonia. 06/11/2017: Patient remains intubated with daily CPAP trials and sedation vacation. Patient failed CPAP trial yesterday 06/11/2017 due to weakness and tachypnea. * Symptom management-dysphasia: Patient currently tolerating artificial nutrition and cold. Patient with moderate oropharyngeal dysphasia per previous swallowing evaluation. Recommendations per speech therapy at that time: 1) Mechanically soft diet with nectar consistency thickened liquids. 2) Medications presented crushed in pure. 3) Patient requires full feeding assistance. 4) Patient will require speech therapy after discharge. . * Symptom management-pain: Patient complaining of back pain but was unable to quantify pain. Per nursing report, patient has a large ulcer on his back with necrosis. PRN morphine is available; patient receiving acetaminophen for elevated temperature which may assist with pain management. Additional factors potentially contributing to patient's pain include impaired skin integrity, impaired circulation, ETT, invasive lines, bedbound status and immobility. May consider starting the patient on scheduled acetaminophen for management of pain and fever. . Collaborating MD Comments Attestation To help prompt me to consider important information that might be impacting today's encounter and assessment, information from prior notes written by myself or my colleagues may have been "brought forward" into today's note. My signature on this note, however, is an attestation that I personally performed the exam, history, and/or decision-making noted today, and, unless otherwise indicated, the interactions with patient, family, and staff as well as the review of records all occurred today. I also attest that the listed assessment and stated plan reflect my best clinical judgment today based on the combination of historical information, prior notes, and today's exam/ interactions. When time spent is documented, it refers only to time spent today by the signer, or if indicated, combined time spent today by collaborating physician/nurse practitioner. . Maria Antonia Whiting Jun 12, 2017 11:20
[2017-06-12] MEDS: PROPOFOL 1000 MG/100 ML INJ 100 ML IV PRN ×3 (11:22→23:37)
[2017-06-12] MEDS: ACETAMINOPHEN 325 MG TAB PO PRN (11:25)
[2017-06-12 11:58] LABS: HEMATOCRIT 26.6 % (39.0-51.0); HEMOGLOBIN 8.2 GM/DL (13.0-17.0); MEAN CELL VOLUME 83.7 FL (80.0-100.0); MEAN CORPUSCULAR HEMOGLOBIN 25.9 PG (27.0-34.0); MEAN CORPUSCULAR HGB CONC 30.9 % (32.0-36.0); MEAN PLATELET VOLUME 8.4 FL (7.0-11.0); PLATELET COUNT 499 TH/MM3 (150-450); RED BLOOD COUNT 3.18 MIL/MM3 (4.50-5.90); RED CELL DISTRIBUTION WIDTH 18.9 % (11.6-17.2); WHITE BLOOD COUNT 16.9 TH/MM3 (4.0-11.0)
[2017-06-12 12:28] LABS: BICARBONATE 27.8 MEQ/L (21.0-32.0); CALCIUM 7.7 MG/DL (8.5-10.1); CREATININE 1.33 MG/DL (0.60-1.30)
--- NOTE | 2017-06-12 15:03 | HHI.IDPN ---
Note Infectious Disease Note ID COVERAGE for DR. Bello. Patient failed CPAP. Awakens but not interacting. Febrile. No significant secretions. Noted to have large ulcer on the back. Antibiotics Linezolid. Allergies: Coded Allergies: Iodinated Contrast- Oral and IV Dye (Verified Allergy, Severe, Anaphylaxis , 05/29/17) acetaminophen (Unverified Allergy, Severe, "LIVER PROBLEMS", 05/29/17) diatrizoate meglumine (Unverified Allergy, Severe, Anaphylaxis, 05/29/17) gadobenic acid (Unverified Allergy, Severe, Anaphylaxis, 05/29/17) gadodiamide (Unverified Allergy, Severe, Anaphylaxis, 05/29/17) gadoteridol (Unverified Allergy, Severe, Anaphylaxis, 05/29/17) iodixanol (Unverified Allergy, Severe, Anaphylaxis, 05/29/17) iohexol (Unverified Allergy, Severe, Anaphylaxis, 05/29/17) penicillin G (Unverified Allergy, Severe, "HOT THROAT", 05/29/17) Uncoded Allergies: RADIOISOTOPES (Allergy, Severe, 09/27/13) UNKONWN RXN, LISTED ON PATIENT PAPERWORK FROM [facility]. OBJECTIVE; Vital Signs Date Time Temp Pulse Resp B/P (MAP) Pulse Ox O2 Delivery O2 Flow Rate FiO2 06/12/17 14:30 97 35 06/12/17 14:00 92 06/12/17 12:25 30 06/12/17 12:00 101.7 93 131/62 (85) 93 06/12/17 12:00 35 06/12/17 12:00 93 06/12/17 11:11 35 06/12/17 10:00 107 06/12/17 08:11 35 06/12/17 08:04 35 06/12/17 08:04 99 35 06/12/17 08:00 35 06/12/17 08:00 100.4 95 24 145/65 (91) 97 06/12/17 08:00 95 06/12/17 06:00 90 06/12/17 04:00 99.2 79 17 115/57 (76) 92 06/12/17 04:00 81 06/12/17 04:00 35 06/12/17 03:45 80 06/12/17 03:38 98 35 06/12/17 03:30 81 06/12/17 03:15 81 06/12/17 03:00 80 06/12/17 02:45 83 06/12/17 02:30 80 06/12/17 02:15 80 06/12/17 02:00 80 06/12/17 02:00 80 06/12/17 01:45 79 06/12/17 01:30 81 06/12/17 01:15 80 06/12/17 01:00 80 06/12/17 00:45 80 06/12/17 00:30 81 06/12/17 00:15 79 06/12/17 00:00 35 06/12/17 00:00 81 06/12/17 00:00 81 06/12/17 00:00 101.0 81 113/54 (73) 98 06/11/17 23:20 100 35 06/11/17 22:00 81 06/11/17 20:00 80 06/11/17 20:00 35 06/11/17 20:00 100.0 80 17 127/59 (81) 97 06/11/17 19:39 100 35 06/11/17 18:00 80 06/11/17 16:00 100.8 82 28 131/61 (84) 96 06/11/17 16:00 82 06/11/17 16:00 35 06/11/17 15:47 95 35 Laboratory Tests Test 06/11/17 04:30 06/12/17 11:28 White Blood Count 13.7 TH/MM3 16.9 TH/MM3 Red Blood Count 2.97 MIL/MM3 3.18 MIL/MM3 Hemoglobin 7.9 GM/DL 8.2 GM/DL Hematocrit 24.3 % 26.6 % Mean Corpuscular Volume 81.7 FL 83.7 FL Mean Corpuscular Hemoglobin 26.6 PG 25.9 PG Mean Corpuscular Hemoglobin Concent 32.5 % 30.9 % Red Cell Distribution Width 18.5 % 18.9 % Platelet Count 436 TH/MM3 499 TH/MM3 Mean Platelet Volume 8.2 FL 8.4 FL Neutrophils (%) (Auto) 79.5 % Lymphocytes (%) (Auto) 7.3 % Monocytes (%) (Auto) 9.7 % Eosinophils (%) (Auto) 2.7 % Basophils (%) (Auto) 0.8 % Neutrophils # (Auto) 10.9 TH/MM3 Lymphocytes # (Auto) 1.0 TH/MM3 Monocytes # (Auto) 1.3 TH/MM3 Eosinophils # (Auto) 0.4 TH/MM3 Basophils # (Auto) 0.1 TH/MM3 CBC Comment AUTO DIFF Differential Total Cells Counted 100 Neutrophils % (Manual) 67 % Band Neutrophils % 17 % Lymphocytes % 3 % Monocytes % 4 % Eosinophils % 6 % Neutrophils # (Manual) 11.9 TH/MM3 Metamyelocytes 3 % Differential Comment FINAL DIFF MANUAL Platelet Estimate NORMAL Platelet Morphology Comment CLUMPED Laboratory Tests Test 06/11/17 04:30 06/12/17 11:28 Blood Urea Nitrogen 26 MG/DL 27 MG/DL Creatinine 1.25 MG/DL 1.33 MG/DL Random Glucose 227 MG/DL 343 MG/DL Total Protein 5.9 GM/DL Albumin 1.5 GM/DL Calcium Level 7.6 MG/DL 7.7 MG/DL Phosphorus Level 2.1 MG/DL Magnesium Level 1.9 MG/DL Alkaline Phosphatase 103 U/L Aspartate Amino Transf (AST/SGOT) 44 U/L Alanine Aminotransferase (ALT/SGPT) 33 U/L Total Bilirubin 0.3 MG/DL Sodium Level 143 MEQ/L 141 MEQ/L Potassium Level 3.4 MEQ/L 3.8 MEQ/L Chloride Level 107 MEQ/L 104 MEQ/L Carbon Dioxide Level 29.0 MEQ/L 27.8 MEQ/L Anion Gap 7 MEQ/L 9 MEQ/L Estimat Glomerular Filtration Rate 57 ML/MIN 53 ML/MIN Microbiology Date/Time Source Procedure Growth Status 06/07/17 11:30 Sputum Expectorated Sputum Gram Stain - Final Complete 06/07/17 11:30 Sputum Culture - Final S. Aureus Mrsa Complete Imaging Chest X-Ray 06/07/17 0000 Signed Impressions: Service Date/Time: Wednesday, June 07, 2017 07:19 - CONCLUSION: ET tube in good position. Juan Carvalho MD FACR Abdomen X-Ray 06/05/17 0000 Signed Impressions: Service Date/Time: May 07:39 - CONCLUSION: Normal examination. The nasogastric is within the proximal stomach Desmond Hudson MD Head CT 06/04/17 0000 Signed Impressions: Service Date/Time: May 04:33 - CONCLUSION: 1. No acute intracranial abnormality seen. 2. Mild atrophy. 3. Persistent increased density within the right globe. Ap Quigley MD Head Magnetic Resonance Angiography 05/29/17 Signed Impressions: Service Date/Time: May 18:31 - CONCLUSION: 1. Suboptimal exam degraded by motion as above. No definite occlusive disease. Nilson Jeffries MD Carotid Artery Ultrasound 05/29/17 Signed Impressions: Service Date/Time: May 19:47 - CONCLUSION: Moderate visible plaque in both carotid arteries. Findings suggest at least a moderate stenosis. This would be better evaluated with CTA carotids. Nilson Jeffries MD Brain MRI 05/29/17 Signed Impressions: Service Date/Time: May 18:31 - CONCLUSION: 1. There is increased signal in the posterior left MCA distribution on the diffusion weighted images characteristic of an acute or subacute infarct. Currently no mass shift or evidence for hemorrhage. Nilson Jeffries MD Abdomen/Pelvis CT 05/29/17 Signed Impressions: Service Date/Time: May 18:10 - CONCLUSION: 1. No acute finding on CT abdomen and pelvis. 2. Calcified gallstones. 3. There is a small hiatal hernia. Distended bladder. 4. 2.3 cm lesion lower pole right kidney not clearly a cyst. Recommend renal ultrasound to assess for cyst versus solid mass. Nilson Jeffries MD Physical Exam GENERAL: No acute distress. HEENT: head atraumatic, left EOMI, No icterus. NECK: Supple. No adenopathy. LUNGS: Basilar rhonchi bilateral. CARDIAC: Regular rate and rhythm. No murmurs. ABDOMEN: Obese, Soft, non tender. EXTREMITIES: No clubbing, cyanosis or edema. Chrojic ulcerations at RLE. SKIN: No rash. IMPRESSION: sp PEA sp stroke Fever secondary to pneumonia. MRSA PNA New acute VDRF recurrent fever. ? source. RECOMMEND: Continue the zyvox po for MRSA. Add Aztreonam for gram negative coverage. Allergic to Penicillin. Monitor the temp. Follow clinical response. Chevy Melvin MD Jun 12, 2017 15:03
[2017-06-12] MEDS: AZTREONAM INJ 1,000 MG in SODIUM CHLORIDE 0.9% INJ 100 ML IV SCH (17:21)
--- NOTE | 2017-06-12 17:22 | PD.WCN.NOT ---
Wound Consult Description: Follow up for Buttocks wound Communicated with: Yolanda LARES 5th floor [facility] Recommendation: 1) Please reposition patient every 2 hours for comfort and offloading 2) Cleanse coccyx/buttocks with normal saline pat dry.Apply skin prep to intact eschar. 3) Apply Maxsorb to open areas cut to fit wound base secure/cover with Optifoam sacral.Change every 3-5 days or as needed for drainage/dislodgement. 4) Apply thick layer of Calazime and Antifungal 50/50 mix to perineal/groin area BID Additional Information: Patient was seen today by chief underwriter and Yolanda LARES 5th floor [facility] for follow up of DTI to Buttocks.Patient required max assist to reposition to left side.Red patchy fungal/moisture rash noted to perineal/groin area. Unstageable DTI measuring 10.3cm x 13.1cm x Eschar from coccyx to left buttocks.Wound present 25% beefy red tissue with moderate bloody drainage and 75% adhered soft eschar wound edges even with wound base.no odor noted.Wound cleansed with normal saline skin prep applied to eschar Maxsorb cut to fit wound base applied to red tissue covered with Optifoam sacral dressing.Patient was then repositioned to left side with pillows.Yolanda LARES changed all other dressings. Neg Pressure Wound Therapy Wound Location Wound Location: Patient seen for wound management of legs [facility] Jun 12, 2017 17:22
--- NOTE | 2017-06-12 18:35 | HHI.NPPN ---
Subjective General Problems: Anemia, Edema, Hypertension Renal Failure: Chronic, Acute, Stage III History of Present Illness 67-year-old male with a past medical history of ischemic heart disease, congestive heart failure, chronic kidney disease, atrial fibrillation, chronic anemia, diabetes mellitus, hypothyroidism, and peripheral vascular disease who was admitted with a complaint of worsening shortness of breath. I was called to see the patient because of elevated BUN and creatinine. The patient has known history of chronic kidney disease and his baseline creatinine seems to be in the range of 1.3-1.5 most of the time. Additional Remarks Patient remain intubated and sedated, open eyes ands responding to some commands. Objective Data Data 06/12/17 06/13/17 19:00 07:00 Intake Total 1033 ml Output Total 1200 ml Balance -167 ml IV Total 219 ml Tube Feeding 634 ml Tube Irrigant 180 ml Output Urine Total 1200 ml Tube Feeding Residual Discard 0 ml # Bowel Movements 3 Vital Signs Date Time Temp Pulse Resp B/P (MAP) Pulse Ox O2 Delivery O2 Flow Rate FiO2 06/12/17 18:00 90 06/12/17 16:00 90 06/12/17 16:00 100.7 90 24 127/56 (79) 98 06/12/17 16:00 35 06/12/17 14:30 97 35 06/12/17 14:00 92 06/12/17 12:25 30 06/12/17 12:00 101.7 93 131/62 (85) 93 06/12/17 12:00 35 06/12/17 12:00 93 06/12/17 11:11 35 06/12/17 10:00 107 06/12/17 08:11 35 06/12/17 08:04 35 06/12/17 08:04 99 35 06/12/17 08:00 35 06/12/17 08:00 100.4 95 24 145/65 (91) 97 06/12/17 08:00 95 06/12/17 06:00 90 06/12/17 04:00 99.2 79 17 115/57 (76) 92 06/12/17 04:00 81 06/12/17 04:00 35 06/12/17 03:45 80 06/12/17 03:38 98 35 06/12/17 03:30 81 06/12/17 03:15 81 06/12/17 03:00 80 06/12/17 02:45 83 06/12/17 02:30 80 06/12/17 02:15 80 06/12/17 02:00 80 06/12/17 02:00 80 06/12/17 01:45 79 06/12/17 01:30 81 06/12/17 01:15 80 06/12/17 01:00 80 06/12/17 00:45 80 06/12/17 00:30 81 06/12/17 00:15 79 06/12/17 00:00 35 06/12/17 00:00 81 06/12/17 00:00 81 06/12/17 00:00 101.0 81 113/54 (73) 98 06/11/17 23:20 100 35 06/11/17 22:00 81 06/11/17 20:00 80 06/11/17 20:00 35 06/11/17 20:00 100.0 80 17 127/59 (81) 97 06/11/17 19:39 100 35 -: 06/12/17 1128 06/12/17 1128 Physical Exam General Appearance Remarks Intubated and sedated. Eyes Eye Exam: Pupils Equal Throat Throat Exam: Oral Mucosa [place] & Moist Neck Neck Exam: Neck Supple Pulmonary Resp Exam: Breath Sounds Equal, No Distress, Rhonchi, Decreased Bases Cardiology CV Exam: Regular, Normal Sinus Rhythm Gastrointestinal/Abdomen GI Exam: Soft, Non-Tender, Bowel Sounds Present Extremeties Extremities Exam: Trace Edema (Bilateral scalling and dryness of skin, in lower leg.) Neurologic Neuro Exam: Sedated Assessment/Plan Assessment Summary: KATERIN/Acute Renal Failure, Hypertension, CKD Stage III Problem List: (1) Acute kidney injury ICD Codes: N17.9 - Acute kidney failure, unspecified (2) Altered mental status ICD Codes: R41.82 - Altered mental status Status: Acute (3) Hx of deep venous thrombosis ICD Codes: Z86.718 - History of deep venous thrombosis Status: Chronic (4) CHF (congestive heart failure) ICD Codes: I50.9 - Congestive heart failure Status: Resolved (5) Diabetes ICD Codes: E11.9 - Diabetes Status: Chronic (6) Hypothyroidism ICD Codes: E03.9 - Hypothyroidism, unspecified Status: Chronic (7) Hypertension ICD Codes: I10 - Hypertension Status: Chronic (8) Chronic kidney disease, stage 3 ICD Codes: N18.3 - Chronic kidney disease, stage 3 (moderate) (9) Rhabdomyolysis ICD Codes: M62.82 - Rhabdomyolysis Plan Patient has been non oliguric. Has chronic kidney disease with baseline Creatinine 1.3-1.5. Most likely has chronic kidney disease due to Hypertensive or renovascular disease. Now develop KATERIN, possibly due to Rhabdo. or Obstructive uropathy. Develop cardiac arrest and intubated. BP is now stable, Creatinine remain stable, possibly at baseline. Urine out put is good, on Lasix, follow the urine out put and BMP. Has low grade fever, on Zyvox and ID following. Problem Qualifiers (1) Hypertension: Qualified Codes: I10 - Essential (primary) hypertension Sunita Maritn MD Jun 12, 2017 18:35
[2017-06-12] MEDS: ATORVASTATIN 40 MG TAB PO SCH (23:08)
[2017-06-13] VITALS (18 sets, daily range): BP systolic 118–162; BP diastolic 60–72; PULSE 83–101; RESP 10–26; TEMP 99.6–102; O2SAT 96–100
[2017-06-13] MEDS: AZTREONAM INJ 1,000 MG in SODIUM CHLORIDE 0.9% INJ 100 ML IV SCH ×3 (02:06→17:37)
[2017-06-13] MEDS: FUROSEMIDE 40 MG/4 ML VIAL IV PUSH SCH ×3 (02:07→17:36)
[2017-06-13] MEDS: ACETAMINOPHEN 325 MG TAB PO PRN ×3 (02:07→21:46)
[2017-06-13] MEDS: LEVOTHYROXINE SODIUM 112 MCG TAB PO SCH (05:46)
[2017-06-13] MEDS: LEVOTHYROXINE SODIUM 25 MCG TAB PO SCH (05:47)
[2017-06-13] MEDS: LINEZOLID 600 MG TAB PO SCH ×2 (05:47→17:36)
[2017-06-13] MEDS: INSULIN ASPART SUPPLEMENTAL SCALE SQ SCH ×2 (05:47)
[2017-06-13] MEDS: PROPOFOL 1000 MG/100 ML INJ 100 ML IV PRN ×4 (05:47→19:38)
[2017-06-13] MEDS: FREE WATER G-TUBE SCH ×3 (05:48→19:37)
[2017-06-13 06:01] LABS: HEMATOCRIT 23.7 % (39.0-51.0); HEMOGLOBIN 7.7 GM/DL (13.0-17.0); MEAN CELL VOLUME 83.1 FL (80.0-100.0); MEAN CORPUSCULAR HEMOGLOBIN 26.9 PG (27.0-34.0); MEAN CORPUSCULAR HGB CONC 32.4 % (32.0-36.0); MEAN PLATELET VOLUME 8.3 FL (7.0-11.0); PLATELET COUNT 434 TH/MM3 (150-450); RED BLOOD COUNT 2.85 MIL/MM3 (4.50-5.90); RED CELL DISTRIBUTION WIDTH 18.7 % (11.6-17.2); WHITE BLOOD COUNT 15.8 TH/MM3 (4.0-11.0)
[2017-06-13] MEDS ORDERED: DEXTROSE 50% IN WATER 50 ML VIAL(D50) IV PUSH PRN (06:30)
[2017-06-13] MEDS: INSULIN NovoLIN REGULAR SUPPLEMENTAL SCALE SQ SCH ×3 (06:30→17:36)
--- NOTE | 2017-06-13 06:36 | HHI.CCPN ---
Subjective Remarks/Hospital Course Patient is a 67-year-old white male was admitted to the [facility] service on 05/30/17 with acute left MCA stroke with right hemiparesis. He has a past medical history significant for CHF with ejection fraction 25% (echo 06/01), Atrial fibrillation on Xarelto, chronic kidney disease stage III, rhabdomyolysis , Hypertension, Anemia, Hyperlipidemia, Diabetes Mellitus and Hypothyroidism. Apparently patient was in his regular state of health, improving right hemiparesis today am. A code blue was called overhead after the patient was found on the bed unresponsive and pulseless, which I responded immediately. CPR was started. See Code sheet for details-rhythm was pea with A. fib. Patient received 2 amp epinephrine, 1amp of bicarb. CPR continued and after total 5 min there was return of spontaneous circulation. I intubated patient during code, after return of spontaneous circulation. Patient was quickly moved to the ICU where resuscitation was continued with IV fluids boluses. I placed a right femoral arterial line for invasive cardiac/hemodynamic monitoring. As the blood pressure was trending down to low 90s systolic patient was started on Levophed infusion. I also placed a right subclavian central line. Patient remained in atrial fibrillation but blood pressure improved with map consistently above 65 with fluid resuscitation and Levophed infusion. I discussed with patient's guardian, who wants patient to be DNR, but wants to continue aggressive treatment. CT of the head is pending at this time. PE is unlikely as the patient had been on Xarelto for anticoagulation SUBJ 06/05/17: Intubated currently off sedation. Remains encephalopathic, sodium 150. Restart Lasix. Did not tolerate weaning trial due to apnea. Stat echo shows EF 20% 06/06 Reconsult: Rylie was called on floor for resp distress on arrival to [facility] patient was tachycardic, tachypneic and hypoxic with sats 80's on NRB. He was subsequently intubated and placed on mechanical ventilation. Patient was given Lasix 40mg IV. 06/08 Patient remains sedated and intubated. Afebrile. Renal function is improving with Cr: 1.55 today from 1.93 06/09: Remains sedated, orally intubated on mechanical ventilation. Hemoglobin 7.2 this morning. No melena or rectal bleeding overnight per discussion with RN 06/10: Remains sedated, orally intubated on mechanical ventilation. Received 1 unit PRBCs yesterday. 06/11: Remains sedated, orally intubated on mechanical ventilation. Daily C Pap trials. 06/12: failed cpap yesterday for weakness and tachypnea. 06/13: significant stool output yesterday and overnight. wbc still elevated. febrile overnight. placed rectal tube due to significant stool causing skin breakdown. sent c. diff pcr and started flagyl iv. still failing sbt daily. overall poor prognosis. Objective Vital Signs Date Time Temp Pulse Resp B/P (MAP) Pulse Ox O2 Delivery O2 Flow Rate FiO2 06/13/17 04:00 87 19 127/60 (82) 97 06/13/17 04:00 35 06/12/17 20:00 101.9 Result Diagram: 06/13/17 0540 06/12/17 1128 Imaging Last Impressions Chest X-Ray 06/07/17 0000 Signed Impressions: Service Date/Time: Wednesday, June 07, 2017 07:19 - CONCLUSION: ET tube in good position. Juan Carvalho MD FACR Abdomen X-Ray 06/05/17 0000 Signed Impressions: Service Date/Time: May 07:39 - CONCLUSION: Normal examination. The nasogastric is within the proximal stomach Desmond Hudson MD Head CT 06/04/17 0000 Signed Impressions: Service Date/Time: May 04:33 - CONCLUSION: 1. No acute intracranial abnormality seen. 2. Mild atrophy. 3. Persistent increased density within the right globe. Ap Quigley MD Head Magnetic Resonance Angiography 05/29/17 0000 Signed Impressions: Service Date/Time: May 18:31 - CONCLUSION: 1. Suboptimal exam degraded by motion as above. No definite occlusive disease. Nilson Jeffries MD Carotid Artery Ultrasound 05/29/17 0000 Signed Impressions: Service Date/Time: May 19:47 - CONCLUSION: Moderate visible plaque in both carotid arteries. Findings suggest at least a moderate stenosis. This would be better evaluated with CTA carotids. Nilson Jeffries MD Brain MRI 05/29/17 0000 Signed Impressions: Service Date/Time: May 18:31 - CONCLUSION: 1. There is increased signal in the posterior left MCA distribution on the diffusion weighted images characteristic of an acute or subacute infarct. Currently no mass shift or evidence for hemorrhage. Nilson Jeffries MD Abdomen/Pelvis CT 05/29/17 0000 Signed Impressions: Service Date/Time: , May 29, 2017 18:10 - CONCLUSION: 1. No acute finding on CT abdomen and pelvis. 2. Calcified gallstones. 3. There is a small hiatal hernia. Distended bladder. 4. 2.3 cm lesion lower pole right kidney not clearly a cyst. Recommend renal ultrasound to assess for cyst versus solid mass. Nilson Jeffries MD Objective Remarks GENERAL: Elderly male lethargic, encephalopathic EYES: legally blind per previous notes ENT: Poor dentition. Orotracheally intubated CARDIOVASCULAR: normal rate, regular rhythm. sinus by tele. RESPIRATORY: equal chest rise. prvc mode. fio2 40% GASTROINTESTINAL soft, nontender, nondistended. no guarding. MUSCULOSKELETAL: S/p right great toe and fifth toe amputation, Small ulcers on bilateral anterior fleming, Non stageable pressure ulcer on bilateral sole, eschar left lateral foot NEUROLOGICAL: Sedated, Intubated, RASS -1. A/P Assessment and Plan Assessment: 67yM with encephalopathy and respiratory failure that is not improving after 2 weeks. now DNR. still no improvements and now with diarrhea and fever, concerning for infectious source. still without improvements, and may be declining again. overall poor prognosis. NEURO: Metabolic encephalopathy Hypoxic Ischemic Encephalopathy Status post left MCA stroke 6 days [employer]RATOR - Encephalopathy post code probable anoxic injury - CT of the head 06/04 -no acute changes, MRI 05/29 had show L MCA stroke - Diprivan infusion for sedation. Daily sedation vacation. RESP: Acute hypoxic respiratory failure on mechanical ventilation - Continue with vent support keep sat >92% -Bronchodilators, ICU vent bundle. - SBT daily as farzad. continues to fail daily. CV: PEA arrest on 06/04 Cardiogenic shock-resolved Atrial fibrillation on chronic Xarelto Cardiomyopathy with EF 25% - Monitor HR and BP keep MAP>65mmHg - 2D Echo 06/01 with EF 25%. - continue lasix to 40mg iv q8h - Continue aspirin, Xarelto, Coreg 3.125mg BID. Not on Pk-I due to KATERIN GI: - PO pepcid - On tube feeds with Glucerna 1.5 with goal rate 45ml/hr add fiber to tube feeds : Chronic kidney disease, uknown baseline stage. - Monitor renal function, I/O's, electrolytes replacement as needed. -Renal is following- Dr. Martin. - lasix to 40mg iv q8h - Free water 250ml Q8 monitor sodium level. ID: -Pneumonia ( MRSA, E.coli) Sputum 06/04: MRSA, E.coli - Continue abx per ID ( Vanco, Cefepime stopped on 06/09). Started on Zyvox per ID HEME: - Monitor CBC, 1 unit PRBCs ordered for Hgb 7.2 on 06/09. ENDO: Hypothyroidism. - Sliding-scale insulin for glycemic control -Continue Synthroid. TSH: 1.2 PROPH: - Bilateral lower extremity SCDs. Continue Xarelto MSK: - Wound care consulted for bilateral sole pressure ulcer, eschar L lateral feet LINES: - Right subclavian central line placed 06/04/17 CODE STATUS DNR Maldonado Mitchell MD Jun 13, 2017 06:36
[2017-06-13 07:02] LABS: BICARBONATE 28.7 MEQ/L (21.0-32.0); CALCIUM 7.5 MG/DL (8.5-10.1); CREATININE 1.35 MG/DL (0.60-1.30)
[2017-06-13] MEDS: CHLORHEXIDINE 0.12% (ORAL KIT) 15 ML CUP MT SCH ×2 (08:00→19:35)
[2017-06-13] MEDS: NUTRISOURCE FIBER POWDER 1 PACK G-TUBE SCH ×2 (09:00→21:00)
[2017-06-13] MEDS: FAMOTIDINE 40 MG/5 ML LIQ 50 ML BTL NG SCH ×2 (09:00→19:36)
[2017-06-13] MEDS: CARVEDILOL 3.125 MG TAB PO SCH ×2 (09:23→19:37)
[2017-06-13] MEDS: RIVAROXABAN 20 MG TAB PO SCH (09:24)
[2017-06-13] MEDS: SODIUM CHLORIDE 0.9% FLUSH 10 ML FLUSH IV FLUSH SCH ×2 (09:24→19:36)
[2017-06-13] MEDS: DOCUSATE SODIUM 50 MG/SENNA 8.6 MG TAB PO SCH ×2 (09:24→19:37)
[2017-06-13] MEDS: metroNIDAZOLE 500 MG INJ 100 ML IV SCH ×3 (09:24→19:35)
[2017-06-13] MEDS: prednisoLONE ACETATE 1% OPHT SUSP 5 ML BTL RIGHT EYE SCH ×2 (09:25→19:37)
[2017-06-13] MEDS: ASPIRIN 325 MG TAB PO SCH (09:26)
[2017-06-13] MEDS: CARBAMIDE PEROXIDE 6.5% OTIC SOLN 15 ML BTL EACH EAR SCH (09:26)
--- NOTE | 2017-06-13 10:40 | HHI.FPPN ---
Subjective Remarks Pt seen and examined this morning. Failed Cpap trials yesterday. Started on Flagyl due to significant stool output and skin breakdown. Objective Vitals Vital Signs Date Time Temp Pulse Resp B/P (MAP) Pulse Ox O2 Delivery O2 Flow Rate FiO2 06/13/17 09:06 100 35 06/13/17 09:06 35 06/13/17 08:00 87 06/13/17 08:00 35 06/13/17 08:00 100.0 87 10 139/60 (86) 96 06/13/17 06:00 85 06/13/17 04:00 87 19 127/60 (82) 97 06/13/17 04:00 87 06/13/17 04:00 35 06/13/17 03:28 98 35 06/13/17 02:00 86 06/13/17 00:00 98 162/68 (99) 96 06/13/17 00:00 35 06/13/17 00:00 98 06/12/17 22:08 92 35 06/12/17 22:00 88 06/12/17 20:00 87 06/12/17 20:00 35 06/12/17 20:00 101.9 87 131/63 (85) 98 06/12/17 19:21 96 35 06/12/17 18:00 90 06/12/17 16:00 90 06/12/17 16:00 100.7 90 24 127/56 (79) 98 06/12/17 16:00 35 06/12/17 14:30 97 35 06/12/17 14:00 92 06/12/17 12:25 30 06/12/17 12:00 101.7 93 131/62 (85) 93 06/12/17 12:00 35 06/12/17 12:00 93 06/12/17 11:11 35 I/O 06/12/17 06/12/17 06/12/17 06/13/17 06/13/17 06/13/17 07:00 15:00 23:00 07:00 15:00 23:00 Intake Total 1335 ml 42 ml 991 ml 428 ml 37 ml Output Total 550 ml 0 ml 1200 ml 1100 ml 0 ml Balance 785 ml 42 ml -209 ml -672 ml 37 ml IV Total 215 ml 42 ml 177 ml 428 ml 37 ml Tube Feeding 620 ml 634 ml Tube Irrigant 180 ml Other 500 ml Output Urine Total 550 ml 1200 ml 1100 ml Tube Feeding Residual Discard 0 ml 0 ml # Bowel Movements 1 3 2 Result Diagram: 06/13/1753906/13/17539 Objective Remarks GENERAL: elderly man, intubated, laying in bed SKIN: scaling and dryness of right and left leg EYES: legally blind, yellow crusting of both eyes ENT: dental caries, dry crusting of lips; intubated CARDIOVASCULAR: Regular rate and rhythm RESPIRATORY: decreased breath sounds in b/l bases. intubated on assist control GASTROINTESTINAL: protuberant abdomen, BS+ MUSCULOSKELETAL: contractures of right and left hand, right great toe and fifth toe amputation, skin is erythematous, dry, several ulcers on lower extremities, covered in clean dry intact dressings NEUROLOGICAL: Sedated, follows some commands A/P Assessment and Plan 67 year old male with CHF (EF 35%), HTN, CKD stage 3, CAD s/p 3 vessel CABG, Afib on xarelto, HTN, HLD, DM admitted for acute infarct of posterior left MCA. Currently on empiric antibiotics due to meeting sepsis criteria. Discharge Planning Unclear timetable at this time; poor prognosis PT- return to SNF at [facility]- patient will require speech therapy after discharge OT- OT at rehab, SNF Problem List: (1) Pneumonia ICD Codes: J18.9 - Pneumonia Status: Acute Plan: Sputum culture grew MRSA and E. Coli. Possibly aspiration pneumonia ID consulted-appreciate recs. -Linezolid 600 mg Q12 (06/09 - ) -Aztreonam 1g q8H (06/12 - ) ABx history -cipro/flagyl (06/07) -Started Cefepime (06-07 - 06/10 ) -Continue Vancomycin (06/04 - 06/09) (2) Mechanically assisted ventilation ICD Codes: Z99.11 - Mechanically assisted ventilation Status: Resolved Plan: Extubated 06/05, status post cardiac arrest and return of spontaneous circulation on 06/04. Reintubated 06/07 for respiratory distress. -Continue ICU management Impregnator consulted-appreciate recs -CPAP trials -Palliative care consulted (3) Ischemic stroke ICD Codes: I63.9 - Cerebral infarction, unspecified Status: Acute Plan: Patient presented with aphasia and left-sided weakness and mild right- sided weakness upon arrival to ED. Brain MRI demonstrated increased signal in the posterior left MCA distribution on the diffusion of weighted images characteristic of an acute or subacute infarct. Currently no mass shift or evidence hemorrhage. Carotid US: moderate visble plaque in both carotid arteries, findings suggest at least a moderate stenosis. possible significant carotid disease, though not a good candidate for further imaging of the carotids at this point Neurology consulted, recs appreciated. -Continue aspirin 325 mg PO daily -Continue Xarelto 20mg PO daily -Physical therapy (4) Sepsis ICD Codes: A41.9 - Sepsis Status: Acute Plan: ID consulted-appreciate recs -Abx per ID as above -Added Flagyl 500mg q6H -C diff pending (5) Congestive heart failure ICD Codes: I50.9 - Heart failure, unspecified Status: Chronic Plan: Echo form 03/14/17 demonstrated 35% ejection fraction CXR 06/01 revealed cardiomegaly and stable compared to CXR 05/22/17, which revealed slight blunting of the left costophrenic sulcus suggesting a small left pleural effusion CXR 06/01 demonstrated moderate pulmonary vascular congestion Echo 06/01: mildly dilated LV, EF 25%, mild to moderate aortic sclerosis Echo 06/04: EF 20% -Lasix 40mg IV q8H -Monitor HR and BP -Coreg 3.125mg BID -Monitor I/Os (6) Chronic kidney disease, stage 3 ICD Codes: N18.3 - Chronic kidney disease, stage 3 (moderate) Plan: Baseline Cr. 1.3-1.5; Stable around 1.2-1.6 -Continue to monitor -Nephrology consulted, recs appreciated -Avoid nephrotoxins -Follow I/O (7) Rhabdomyolysis ICD Codes: M62.82 - Rhabdomyolysis Plan: Elevated creatine kinase 2533 most likely due to tremors, decreased to 1397 Improving NS 125mls/hr Continue to monitor Nephrology consulted, appreciate recs (8) Atrial fibrillation ICD Codes: I48.91 - Atrial fibrillation Status: Chronic Plan: -Xarelto 20mg PO daily (9) Hypertension ICD Codes: I10 - Hypertension Status: Chronic Plan: -Continue home meds: Coreg 6.25 mg PO q12 Losartan 50mg PO daily (10) Neurogenic bladder ICD Codes: N31.9 - Neuromuscular dysfunction of bladder, unspecified Plan: Neurogenic bladder due to stroke -Conde catheter placed (11) Hyperlipidemia ICD Codes: E78.5 - Hyperlipidemia Status: Chronic Plan: -Continue Atorvastatin 40mg PO HS (12) Hypothyroidism ICD Codes: E03.9 - Hypothyroidism, unspecified Status: Chronic Plan: -Continue Levothyroxine 112mcg PO daily (13) Diabetes ICD Codes: E11.9 - Diabetes Status: Chronic Plan: -Low dose SS -Held home insulin (14) Nutrition, metabolism, and development symptoms ICD Codes: R63.8 - Other symptoms and signs concerning food and fluid intake Status: Acute Plan: Fluids: Free water q8H Diet: Tube feeds Electrolytes: monitor and replace as needed DVT ppx: Xarelto, SCDs Problem Qualifiers (1) Pneumonia: Qualified Codes: J15.212 - Pneumonia due to methicillin resistant Staphylococcus aureus (2) Congestive heart failure: Qualified Codes: I50.9 - Heart failure, unspecified (3) Atrial fibrillation: Qualified Codes: I48.2 - Chronic atrial fibrillation (4) Hypertension: Qualified Codes: I10 - Essential (primary) hypertension Ángel Pulido MD, R2 Jun 13, 2017 10:40
--- NOTE | 2017-06-13 11:04 | HHI.NPPN ---
Subjective General Problems: Anemia, Edema, Hypertension Renal Failure: Chronic, Acute, Stage III History of Present Illness 67-year-old male with a past medical history of ischemic heart disease, congestive heart failure, chronic kidney disease, atrial fibrillation, chronic anemia, diabetes mellitus, hypothyroidism, and peripheral vascular disease who was admitted with a complaint of worsening shortness of breath. I was called to see the patient because of elevated BUN and creatinine. The patient has known history of chronic kidney disease and his baseline creatinine seems to be in the range of 1.3-1.5 most of the time. Additional Remarks Patient remain intubated and sedated, open eyes ands responding to some commands. Objective Data Data 06/13/17 06/14/17 18:59 06:59 Intake Total 37 ml Output Total 0 ml Balance 37 ml IV Total 37 ml Tube Feeding Residual Discard 0 ml Vital Signs Date Time Temp Pulse Resp B/P (MAP) Pulse Ox O2 Delivery O2 Flow Rate FiO2 06/13/17 10:35 24 06/13/17 10:00 90 06/13/17 09:06 100 35 06/13/17 09:06 35 06/13/17 08:00 87 06/13/17 08:00 35 06/13/17 08:00 100.0 87 10 139/60 (86) 96 06/13/17 06:00 85 06/13/17 04:00 87 19 127/60 (82) 97 06/13/17 04:00 87 06/13/17 04:00 35 06/13/17 03:28 98 35 06/13/17 02:00 86 06/13/17 00:00 98 162/68 (99) 96 06/13/17 00:00 35 06/13/17 00:00 98 06/12/17 22:08 92 35 06/12/17 22:00 88 06/12/17 20:00 87 06/12/17 20:00 35 06/12/17 20:00 101.9 87 131/63 (85) 98 06/12/17 19:21 96 35 06/12/17 18:00 90 06/12/17 16:00 90 06/12/17 16:00 100.7 90 24 127/56 (79) 98 06/12/17 16:00 35 06/12/17 14:30 97 35 06/12/17 14:00 92 06/12/17 12:00 101.7 93 131/62 (85) 93 06/12/17 12:00 35 06/12/17 12:00 93 06/12/17 11:11 35 -: 06/13/17 0540 06/13/17 0540 Physical Exam General Appearance Remarks Intubated and sedated. Eyes Eye Exam: Pupils Equal Throat Throat Exam: Oral Mucosa [place] & Moist Neck Neck Exam: Neck Supple Pulmonary Resp Exam: Breath Sounds Equal, No Distress, Rhonchi, Decreased Bases Cardiology CV Exam: Regular, Normal Sinus Rhythm Gastrointestinal/Abdomen GI Exam: Soft, Non-Tender, Bowel Sounds Present Extremeties Extremities Exam: Trace Edema (Bilateral scalling and dryness of skin, in lower leg.) Neurologic Neuro Exam: Sedated Assessment/Plan Assessment Summary: KATERIN/Acute Renal Failure, Hypertension, CKD Stage III Problem List: (1) Acute kidney injury ICD Codes: N17.9 - Acute kidney failure, unspecified (2) Altered mental status ICD Codes: R41.82 - Altered mental status Status: Acute (3) Hx of deep venous thrombosis ICD Codes: Z86.718 - History of deep venous thrombosis Status: Chronic (4) CHF (congestive heart failure) ICD Codes: I50.9 - Congestive heart failure Status: Resolved (5) Diabetes ICD Codes: E11.9 - Diabetes Status: Chronic (6) Hypothyroidism ICD Codes: E03.9 - Hypothyroidism, unspecified Status: Chronic (7) Hypertension ICD Codes: I10 - Hypertension Status: Chronic (8) Chronic kidney disease, stage 3 ICD Codes: N18.3 - Chronic kidney disease, stage 3 (moderate) (9) Rhabdomyolysis ICD Codes: M62.82 - Rhabdomyolysis Plan Patient has been non oliguric. Has chronic kidney disease with baseline Creatinine 1.3-1.5. Most likely has chronic kidney disease due to Hypertensive or renovascular disease. Now develop KATERIN, possibly due to Rhabdo. or Obstructive uropathy. Develop cardiac arrest and intubated. BP is now stable, Creatinine remain stable, possibly at baseline. Urine out put is good, on Lasix, follow the urine out put and BMP. Has low grade fever, on Zyvox and ID following. Problem Qualifiers (1) Hypertension: Qualified Codes: I10 - Essential (primary) hypertension Sunita Martin MD Jun 13, 2017 11:04
--- NOTE | 2017-06-13 12:20 | HHI.HCPN ---
Reason for visit a. To assist with evaluation and management of symptoms including: dyspnea, debility, dysphagia, pain b. To assist medical decision maker(s) with: better understanding of current medical conditions; weighing benefits/burdens of medical treatment options; making medical treatment decisions. . Subjective/Interval History Follow up visit for symptom management and clarification of medical treatment goals. Patient remains intubated and sedated on mechanical ventilation. Failing SBT. Patient became tachypneic after only 5 minutes of CPAP this morning 06/13/2017, having copious oral secretions. Patient arouses briefly to verbal stimuli, not following commands during my exam. Patient appears uncomfortable on exam as evidenced by occasional grimacing. Infectious disease and nephrology following. Febrile. T-max 101.9 Repeat sputum culture 06/07/17 + MRSA. On PO Zyvox for MRSA , Azethreonam was started for gram-negative coverage. Blood work: =WBC 15.8, hemoglobin 7.7, hematocrit 23.7, platelets 434 =Sodium 142, potassium 4.0, chloride 106, carbon dioxide 28.7, random glucose 508, calcium 7.5 =BUN: 33, creatinine 1.35, GFR 52 Tolerating tube feedings with Glucerna 1.5 with goal rate 45 mL per hour. Total protein: 5.9, albumin 1.5. Having significant diarrhea, rectal tube was placed secondary to skin breakdown. C. difficile PCR ordered and the patient was started on Flagyl. Bilateral lower extremities with right great toe and fifth toe amputation. Skin is erythematous, dry with multiple ulcers that are covered in clean dry intact dressings. Patient has an unstageable DTI measuring 10.3cm x 13.1cm, wound bed is reportedly necrotic with mild odor. Wound care following. . Family/friend interactions Spoke with court appointed guardian, Deborah Hankins, from [place] on aging. An update was provided on the patient's clinical condition. We discussed ongoing aggressive interventions versus transitioning to comfort focused goals with hospice. If goals remain aggressive, patient will need trach/PEG. The guardian would like to give the patient the weekend to show some improvement; a decision on medical treatment goals will be made on Friday06/16/2017. . Advance Directives Advance Directive Specifics Documented care wishes: No documented care wishes are available at this time. . Objective Vital Signs Date Time Temp Pulse Resp B/P (MAP) Pulse Ox O2 Delivery O2 Flow Rate FiO2 06/13/17 10:35 24 06/13/17 10:00 90 06/13/17 09:06 100 35 06/13/17 09:06 35 06/13/17 08:00 87 06/13/17 08:00 35 06/13/17 08:00 100.0 87 10 139/60 (86) 96 06/13/17 06:00 85 06/13/17 04:00 87 19 127/60 (82) 97 06/13/17 04:00 87 06/13/17 04:00 35 06/13/17 03:28 98 35 06/13/17 02:00 86 06/13/17 00:00 98 162/68 (99) 96 06/13/17 00:00 35 06/13/17 00:00 98 06/12/17 22:08 92 35 06/12/17 22:00 88 06/12/17 20:00 87 06/12/17 20:00 35 06/12/17 20:00 101.9 87 131/63 (85) 98 06/12/17 19:21 96 35 06/12/17 18:00 90 06/12/17 16:00 90 06/12/17 16:00 100.7 90 24 127/56 (79) 98 06/12/17 16:00 35 06/12/17 14:30 97 35 06/12/17 14:00 92 06/12/17 12:00 101.7 93 131/62 (85) 93 06/12/17 12:00 35 06/12/17 12:00 93 Intake & Output 06/13/17 06/13/17 07:00 19:00 Intake Total 428 ml 37 ml Output Total 1100 ml 0 ml Balance -672 ml 37 ml IV Total 428 ml 37 ml Output Urine Total 1100 ml Tube Feeding Residual Discard 0 ml # Bowel Movements 2 Physical Exam CONSTITUTIONAL/GENERAL: This is an adequately nourished patient, fragile appearing male patient who is intubated on mechanical ventilation. TUBES/LINES/DRAINS: PIV, CVL, Conde catheter, ETT, NGT, soft restraints, Giselle Shield SKIN: Generalized pallor. Right great toe and fifth toe status post amputation. Multiple ulcers on BLE with drsgs dry and intact HEAD: Atraumatic. Normocephalic. EYES: Legally blind per previous notes. Right eye closed, did not attempt open. Left eye with no scleral icterus, no injection or drainage ENT: Orotracheally intubated. Poor dentition. Mucous membranes dry. Nose without bleeding or purulent drainage. CARDIOVASCULAR: Sinus rhythm. No JVD. Peripheral pulses symmetrical RESPIRATORY/CHEST: Orotracheally intubated on mechanical ventilation, failing SBT. Breath sounds diminished bilaterally, L > R. scattered rhonchi. GASTROINTESTINAL: Tolerating artificial nutrition at goal. Abdomen is firm, non-tender. Active bowel sounds 4 quadrants. + Diarrhea-C. difficile pending GENITOURINARY: Without palpable bladder distension. Urinary catheter in place. MUSCULOSKELETAL: Status post right great toe and fifth toe amputation. Small ulcers on bilateral anterior fleming. Non stageable pressure ulcer on bilateral sole, eschar left lateral foot. Bilateral lower extremities with atrophy LYMPHATICS: No palpable cervical or supraclavicular adenopathy. NEUROLOGICAL: Lethargic and weak. Arouses briefly to verbal stimuli; does not follow commands during my exam PSYCHIATRIC: Unable to assess due to patient's clinical condition . Diagnostic Tests Laboratory Laboratory Tests Test 06/11/17 04:30 06/12/17 11:28 06/13/17 05:40 White Blood Count 13.7 TH/MM3 (4.0-11.0) 16.9 TH/MM3 (4.0-11.0) 15.8 TH/MM3 (4.0-11.0) Red Blood Count 2.97 MIL/MM3 (4.50-5.90) 3.18 MIL/MM3 (4.50-5.90) 2.85 MIL/MM3 (4.50-5.90) Hemoglobin 7.9 GM/DL (13.0-17.0) 8.2 GM/DL (13.0-17.0) 7.7 GM/DL (13.0-17.0) Hematocrit 24.3 % (39.0-51.0) 26.6 % (39.0-51.0) 23.7 % (39.0-51.0) Mean Corpuscular Volume 81.7 FL (80.0-100.0) 83.7 FL (80.0-100.0) 83.1 FL (80.0-100.0) Mean Corpuscular Hemoglobin 26.6 PG (27.0-34.0) 25.9 PG (27.0-34.0) 26.9 PG (27.0-34.0) Mean Corpuscular Hemoglobin Concent 32.5 % (32.0-36.0) 30.9 % (32.0-36.0) 32.4 % (32.0-36.0) Red Cell Distribution Width 18.5 % (11.6-17.2) 18.9 % (11.6-17.2) 18.7 % (11.6-17.2) Platelet Count 436 TH/MM3 (150-450) 499 TH/MM3 (150-450) 434 TH/MM3 (150-450) Mean Platelet Volume 8.2 FL (7.0-11.0) 8.4 FL (7.0-11.0) 8.3 FL (7.0-11.0) Neutrophils (%) (Auto) 79.5 % (16.0-70.0) Lymphocytes (%) (Auto) 7.3 % (9.0-44.0) Monocytes (%) (Auto) 9.7 % (0.0-8.0) Eosinophils (%) (Auto) 2.7 % (0.0-4.0) Basophils (%) (Auto) 0.8 % (0.0-2.0) Neutrophils # (Auto) 10.9 TH/MM3 (1.8-7.7) Lymphocytes # (Auto) 1.0 TH/MM3 (1.0-4.8) Monocytes # (Auto) 1.3 TH/MM3 (0-0.9) Eosinophils # (Auto) 0.4 TH/MM3 (0-0.4) Basophils # (Auto) 0.1 TH/MM3 (0-0.2) CBC Comment AUTO DIFF Differential Total Cells Counted 100 Neutrophils % (Manual) 67 % (16-70) Band Neutrophils % 17 % (0-6) Lymphocytes % 3 % (9-44) Monocytes % 4 % (0-8) Eosinophils % 6 % (0-4) Neutrophils # (Manual) 11.9 TH/MM3 (1.8-7.7) Metamyelocytes 3 % (0-1) Differential Comment FINAL DIFF MANUAL Platelet Estimate NORMAL (NORMAL) Platelet Morphology Comment CLUMPED (NORMAL) Blood Urea Nitrogen 26 MG/DL (7-18) 27 MG/DL (7-18) 33 MG/DL (7-18) Creatinine 1.25 MG/DL (0.60-1.30) 1.33 MG/DL (0.60-1.30) 1.35 MG/DL (0.60-1.30) Random Glucose 227 MG/DL (74-106) 343 MG/DL (74-106) 408 MG/DL (74-106) Total Protein 5.9 GM/DL (6.4-8.2) Albumin 1.5 GM/DL (3.4-5.0) Calcium Level 7.6 MG/DL (8.5-10.1) 7.7 MG/DL (8.5-10.1) 7.5 MG/DL (8.5-10.1) Phosphorus Level 2.1 MG/DL (2.5-4.9) Magnesium Level 1.9 MG/DL (1.5-2.5) Alkaline Phosphatase 103 U/L (45-117) Aspartate Amino Transf (AST/SGOT) 44 U/L (15-37) Alanine Aminotransferase (ALT/SGPT) 33 U/L (12-78) Total Bilirubin 0.3 MG/DL (0.2-1.0) Sodium Level 143 MEQ/L (136-145) 141 MEQ/L (136-145) 142 MEQ/L (136-145) Potassium Level 3.4 MEQ/L (3.5-5.1) 3.8 MEQ/L (3.5-5.1) 4.0 MEQ/L (3.5-5.1) Chloride Level 107 MEQ/L (98-107) 104 MEQ/L (98-107) 106 MEQ/L (98-107) Carbon Dioxide Level 29.0 MEQ/L (21.0-32.0) 27.8 MEQ/L (21.0-32.0) 28.7 MEQ/L (21.0-32.0) Anion Gap 7 MEQ/L (5-15) 9 MEQ/L (5-15) 7 MEQ/L (5-15) Estimat Glomerular Filtration Rate 57 ML/MIN (>89) 53 ML/MIN (>89) 52 ML/MIN (>89) . Result Diagram: 06/13/17 0540 06/13/17 0540 Procedures 06/04/2017: PEA arrest with CPR 06/04/2017: Intubation 06/04/2017: Right femur all arterial line placement 06/04/2017: Right subclavian central line placement 06/04/2017: NGT 06/05/2017: Extubation. 06/06/2017: Reintubation . Assessment and Plan Disease Oriented Problem List: (1) GERD (gastroesophageal reflux disease) (2) Mood disorder (3) COPD (chronic obstructive pulmonary disease) (4) Respiratory failure (5) CAD (coronary artery disease) (6) Chronic kidney disease, stage 3 (7) Atrial fibrillation (8) Hypertension (9) Diabetes (10) Hypothyroidism (11) S/P CABG x 3 Symptom Scale: (1) Dyspnea 0-10 Scale: Unable to quantify (2) Debility 0-10 Scale: Unable to quantify (3) Pain 0-10 Scale: Unable to quantify (4) Dysphagia 0-10 Scale: Unable to quantify Pertinent Non-Medical Issues Psychosocial: Jensen was born in [place]. Jensen has 4 half siblings (2 of which currently live in [place]). Jensen was raised by his Aunt. 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 Per previous note, his cousin (Krista) described him as a person that is "difficult to get along with" and strong willed. Jensen enjoys watching sports; including the Yankees and Giants. Jensen also has loved records and eating sweets. Patient is a LTC resident of [facility] and will return there at discharge. Spiritual: [employer] Legal: Court appointed legal guardian as of 10/03/2015 - [employer] Deborah Hankins: [phone] (1st contact). Fernanda Bryant: [phone] Ethical issues impacting care: No known ethical issues impacting care at this time. . Important Contacts Public guardianship - [employer] on aging of [facility]. Deborah Hankins: [phone] (1st contact) Fernanda Bryant: [phone] . Prognosis Patient with significant debility. He is a [facility]term [facility] who has been hospitalized 4 times in the past 4 months. He has multiple comorbid conditions including his recent MCA stroke, MRSA pneumonia, recurrent respiratory failure and cardiomyopathy with an EF of 25%. He remains encephalopathic status post PEA arrest with possible anoxic brain injury. Given patient's advanced age, complex medical history and baseline debility, he is at high risk for continued decline, complications and rehospitalizations. . Code Status: No Code Plan * NO CODE * [facility] community DNR completed 06/09/2017. * Decision-making: Patient does not have insight or judgment related to his medical conditions; he is not capacitated to participate in establishment of medical treatment goals nor will he regain capacity. Court appointed legal guardian as of 10/03/2015 - [employer] Deborah Hankins: [phone] (1st contact). Fernanda Bryant: [phone] * Discussed patient with nurse (Yolanda) and Dr. Mitchell. Spoke with Deborah Hankins from [facility]. * Goals remain aggressive up to the point of cardiopulmonary resuscitation. * Patient was admitted on 05/29/2017. He remains intubated on mechanical ventilation with multiple life limiting conditions. A transition to comfort focused care with hospice services is medically appropriate when/if medical treatment goals become comfort oriented. Spoke with court appointed guardian, Deborah Hankins, from [place] on aging. An update was provided on the patient' s clinical condition. We discussed ongoing aggressive interventions versus transitioning to comfort focused goals with hospice. If goals remain aggressive , patient will need trach/PEG. The guardian would like to give the patient the weekend to show some improvement; a decision on medical treatment goals will be made on Friday06/16/2017. * Symptom management-debility: Patient is a resident of [facility] with plan to discharge back to previous setting. Per legal guardian, patient was maximum assist 2 to transfer from bed to wheelchair prior to hospitalization. He was able to self propel his wheelchair using his feet. * Symptom management-dyspnea: Patient was reintubated 06/05/2017. Sputum culture on 06/04/2017 growing MRSA and Escherichia coli; follow-up sputum culture on 06/07/2017 growing MRSA. Possibly aspiration pneumonia. 06/13/2017: Patient remains intubated and sedated on mechanical ventilation. Failing SBT. Patient became tachypneic after only 5 minutes of CPAP this morning 06/13/2017, having copious oral secretions. * Symptom management-dysphasia: Patient currently tolerating artificial nutrition and cold. Patient with moderate oropharyngeal dysphasia per previous swallowing evaluation. Recommendations per speech therapy at that time: 1) Mechanically soft diet with nectar consistency thickened liquids. 2) Medications presented crushed in pure. 3) Patient requires full feeding assistance. 4) Patient will require speech therapy after discharge. . * Symptom management-pain:Patient appears uncomfortable on exam as evidenced by occasional grimacing. Per nursing report, patient has a large ulcer on his buttocks with necrosis. PRN morphine is available; patient receiving acetaminophen for elevated temperature which may assist with pain management. Additional factors potentially contributing to patient's pain include impaired skin integrity, impaired circulation, ETT, invasive lines, bedbound status and immobility. May consider starting the patient on scheduled acetaminophen for management of pain and fever. . Attestation To help prompt me to consider important information that might be impacting today's encounter and assessment, information from prior notes written by myself or my colleagues may have been "brought forward" into today's note. My signature on this note, however, is an attestation that I personally performed the exam, history, and/or decision-making noted today, and, unless otherwise indicated, the interactions with patient, family, and staff as well as the review of records all occurred today. I also attest that the listed assessment and stated plan reflect my best clinical judgment today based on the combination of historical information, prior notes, and today's exam/ interactions. When time spent is documented, it refers only to time spent today by the signer, or if indicated, combined time spent today by collaborating physician/nurse practitioner. . Maria Antonia Whiting Jun 13, 2017 12:20
--- NOTE | 2017-06-13 17:06 | HHI.IDPN ---
Note Infectious Disease Note ID COVERAGE for DR. Bello. Patient failed CPAP again today lasted 5 mins. Sedated on the vent. Low grade fever. Little frothy secretions. Noted to have large ulcer on the back. WBC still elevated. discussed with RN. Motta placed for loose stools. Antibiotics Linezolid. Aztreonam. Allergies: Coded Allergies: Iodinated Contrast- Oral and IV Dye (Verified Allergy, Severe, Anaphylaxis , 05/29/17) acetaminophen (Unverified Allergy, Severe, "LIVER PROBLEMS", 05/29/17) diatrizoate meglumine (Unverified Allergy, Severe, Anaphylaxis, 05/29/17) gadobenic acid (Unverified Allergy, Severe, Anaphylaxis, 05/29/17) gadodiamide (Unverified Allergy, Severe, Anaphylaxis, 05/29/17) gadoteridol (Unverified Allergy, Severe, Anaphylaxis, 05/29/17) iodixanol (Unverified Allergy, Severe, Anaphylaxis, 05/29/17) iohexol (Unverified Allergy, Severe, Anaphylaxis, 05/29/17) penicillin G (Unverified Allergy, Severe, "HOT THROAT", 05/29/17) Uncoded Allergies: RADIOISOTOPES (Allergy, Severe, 09/27/13) UNKONWN RXN, LISTED ON PATIENT PAPERWORK FROM [facility]. OBJECTIVE; Current Medications Medications (Trade) Dose Ordered Sig/Gucci Route PRN Reason Start Time Stop Time Status Last Admin Dose Admin Sodium Chloride (NS Flush) 2 ml UNSCH PRN IV FLUSH FLUSH AFTER USING IV ACCESS 05/29/17 16:00 06/09/17 20:16 Sodium Chloride (NS Flush) 2 ml BID IV FLUSH 05/29/17 21:00 06/13/17 09:24 Ondansetron HCl (Zofran Inj) 4 mg Q6H PRN IVP NAUSEA OR VOMITING 05/29/17 16:00 Senna/Docusate Sodium (Kimberly-Colace) 1 tab BID PO 05/29/17 21:00 06/13/17 09:24 Albuterol Sulfate (Albuterol Neb) 2.5 mg Q2HR NEB PRN NEB SHORTNESS OF BREATH 05/29/17 16:15 Alprazolam (Xanax) 0.25 mg Q6H PRN PO ANXIETY 12/14/17 16:15 06/05/17 21:40 Atorvastatin Calcium (Lipitor) 40 mg HS PO 05/29/17 21:00 06/12/17 23:08 Carbamide Peroxide (Debrox 6.5% Otic) 5 drop DAILY EACH EAR 05/30/17 09:00 06/13/17 09:26 Hydroxyzine HCl (Atarax) 25 mg Q6H PRN PO ITCHING 05/29/17 16:15 Future Hold Prednisolone Acetate (Pred Forte 1% Opth Susp) 1 drop BID RIGHT EYE 05/29/17 21:00 06/13/17 09:25 Levothyroxine Sodium (Synthroid) 112 mcg DAILY@0600 PO 05/30/17 06:00 06/13/17 05:46 Levothyroxine Sodium (Synthroid) 25 mcg DAILY@0600 PO 05/30/17 06:00 06/13/17 05:47 Aspirin (Aspirin) 325 mg DAILY PO 06/01/17 09:00 06/13/17 09:26 Acetaminophen (Tylenol) 650 mg Q4H PRN PO TEMP > 100.4 05/31/17 12:45 06/13/17 05:48 Losartan Potassium (Cozaar) 50 mg DAILY PO 06/01/17 11:15 Future Hold 06/04/17 09:41 Chlorhexidine Gluconate (Peridex 0.12% Liq) 15 ml BID@08,20 MT 06/04/17 20:00 06/13/17 08:00 Terbutaline Sulfate (Brethine Inj) 1 mg UNSCH PRN SQ FOR EXTRAVASATION PROTOCOL 06/04/17 14:45 Morphine Sulfate (Morphine Inj) 2 mg Q3H PRN IV PUSH BREAKTHROUGH PAIN 06/06/17 11:00 06/09/17 00:36 Naloxone HCl (Narcan Inj) 0.4 mg UNSCH PRN IV PUSH SEE LABEL COMMENTS 06/06/17 10:30 Carvedilol (Coreg) 3.125 mg Q12HR PO 06/07/17 09:00 06/13/17 09:23 Albuterol/ Ipratropium (Duoneb Neb) 1 ampule Q2HR NEB PRN NEB SHORTNESS OF BREATH 06/07/17 07:45 Propofol 100 ml @ 2.484 mls/ hr TITRATE PRN IV SEDATION 06/07/17 07:45 06/13/17 14:38 Water (Free Water) 250 ml Q8HR G-TUBE 06/08/17 09:45 06/13/17 09:25 Linezolid (Zyvox) 600 mg Q12H PO 06/09/17 18:00 06/13/17 05:47 Rivaroxaban (Xarelto) 20 mg DAILY PO 06/10/17 09:00 06/13/17 09:24 Furosemide (Lasix Inj) 40 mg Q8H IV PUSH 06/12/17 09:00 06/13/17 09:00 Famotidine (Pepcid Liq) 40 mg BID NG 06/12/17 09:00 06/13/17 09:00 Aztreonam 1000 mg/ Sodium Chloride 100 ml @ 200 mls/hr Q8H IV 06/12/17 17:00 06/13/17 09:24 Guar Gum (Nutrisource Fiber Powder) 2 pack BID G-TUBE 06/13/17 09:00 06/13/17 09:00 Dextrose (D50w (Vial) Inj) 25 ml UNSCH PRN IV PUSH HYPOGLYCEMIA-SEE COMMENTS 06/13/17 06:30 Insulin Human Regular (NovoLIN R SUPPLEMENTAL SCALE) 1 Q6HR SQ 06/13/17 06:30 06/13/17 12:00 Metronidazole 100 ml @ 100 mls/hr Q6H IV 06/13/17 08:00 06/13/17 14:37 Laboratory Tests Test 06/12/17 11:28 06/13/17 05:40 White Blood Count 16.9 TH/MM3 15.8 TH/MM3 Red Blood Count 3.18 MIL/MM3 2.85 MIL/MM3 Hemoglobin 8.2 GM/DL 7.7 GM/DL Hematocrit 26.6 % 23.7 % Mean Corpuscular Volume 83.7 FL 83.1 FL Mean Corpuscular Hemoglobin 25.9 PG 26.9 PG Mean Corpuscular Hemoglobin Concent 30.9 % 32.4 % Red Cell Distribution Width 18.9 % 18.7 % Platelet Count 499 TH/MM3 434 TH/MM3 Mean Platelet Volume 8.4 FL 8.3 FL Laboratory Tests Test 06/12/17 11:28 06/13/17 05:40 Blood Urea Nitrogen 27 MG/DL 33 MG/DL Creatinine 1.33 MG/DL 1.35 MG/DL Random Glucose 343 MG/DL 408 MG/DL Calcium Level 7.7 MG/DL 7.5 MG/DL Sodium Level 141 MEQ/L 142 MEQ/L Potassium Level 3.8 MEQ/L 4.0 MEQ/L Chloride Level 104 MEQ/L 106 MEQ/L Carbon Dioxide Level 27.8 MEQ/L 28.7 MEQ/L Anion Gap 9 MEQ/L 7 MEQ/L Estimat Glomerular Filtration Rate 53 ML/MIN 52 ML/MIN Laboratory Tests Test 06/12/17 11:28 06/13/17 05:40 White Blood Count 16.9 TH/MM3 15.8 TH/MM3 Red Blood Count 3.18 MIL/MM3 2.85 MIL/MM3 Hemoglobin 8.2 GM/DL 7.7 GM/DL Hematocrit 26.6 % 23.7 % Mean Corpuscular Volume 83.7 FL 83.1 FL Mean Corpuscular Hemoglobin 25.9 PG 26.9 PG Mean Corpuscular Hemoglobin Concent 30.9 % 32.4 % Red Cell Distribution Width 18.9 % 18.7 % Platelet Count 499 TH/MM3 434 TH/MM3 Mean Platelet Volume 8.4 FL 8.3 FL Laboratory Tests Test 06/12/17 11:28 06/13/17 05:40 Blood Urea Nitrogen 27 MG/DL 33 MG/DL Creatinine 1.33 MG/DL 1.35 MG/DL Random Glucose 343 MG/DL 408 MG/DL Calcium Level 7.7 MG/DL 7.5 MG/DL Sodium Level 141 MEQ/L 142 MEQ/L Potassium Level 3.8 MEQ/L 4.0 MEQ/L Chloride Level 104 MEQ/L 106 MEQ/L Carbon Dioxide Level 27.8 MEQ/L 28.7 MEQ/L Anion Gap 9 MEQ/L 7 MEQ/L Estimat Glomerular Filtration Rate 53 ML/MIN 52 ML/MIN Imaging Chest X-Ray 06/07/17 0000 Signed Impressions: Service Date/Time: Wednesday, June 07, 2017 07:19 - CONCLUSION: ET tube in good position. Juan Carvalho MD FACR Abdomen X-Ray 06/05/17 0000 Signed Impressions: Service Date/Time: May 07:39 - CONCLUSION: Normal examination. The nasogastric is within the proximal stomach Desmond Hudson MD Head CT 06/04/17 0000 Signed Impressions: Service Date/Time: May 04:33 - CONCLUSION: 1. No acute intracranial abnormality seen. 2. Mild atrophy. 3. Persistent increased density within the right globe. Ap Quigley MD Head Magnetic Resonance Angiography 05/29/17 0000 Signed Impressions: Service Date/Time: May 18:31 - CONCLUSION: 1. Suboptimal exam degraded by motion as above. No definite occlusive disease. Nilson Jeffries MD Carotid Artery Ultrasound 05/29/17 0000 Signed Impressions: Service Date/Time: May 19:47 - CONCLUSION: Moderate visible plaque in both carotid arteries. Findings suggest at least a moderate stenosis. This would be better evaluated with CTA carotids. Nilson Jeffries MD Brain MRI 05/29/17 0000 Signed Impressions: Service Date/Time: May 18:31 - CONCLUSION: 1. There is increased signal in the posterior left MCA distribution on the diffusion weighted images characteristic of an acute or subacute infarct. Currently no mass shift or evidence for hemorrhage. Nilson Jeffries MD Abdomen/Pelvis CT 05/29/17 0000 Signed Impressions: Service Date/Time: May 18:10 - CONCLUSION: 1. No acute finding on CT abdomen and pelvis. 2. Calcified gallstones. 3. There is a small hiatal hernia. Distended bladder. 4. 2.3 cm lesion lower pole right kidney not clearly a cyst. Recommend renal ultrasound to assess for cyst versus solid mass. Nilson Jeffries MD Physical Exam GENERAL: Sedated on the vent. HEENT: Head atraumatic, No icterus. NECK: Supple. No adenopathy. LUNGS: Basilar rhonchi bilateral. Breath sounds decreased. CARDIAC: Regular rate and rhythm. No murmurs. ABDOMEN: Obese, distended. Soft, non tender. EXTREMITIES: No clubbing, cyanosis or edema. Chronic ulcerations at RLE. SKIN: No rash. IMPRESSION: sp PEA sp stroke Fever. Recurrent. Pneumonia. MRSA. New acute VDRF RECOMMEND: Continue the zyvox po for MRSA. Continue Aztreonam for gram negative coverage. Allergic to Penicillin. Monitor the temp. Follow clinical response. Also on Flagyl. POA to decide on aggressiveness of care on Friday per palliative. Dr Valentine covering weekend. Chevy Melvin MD Jun 13, 2017 17:06
[2017-06-13] MEDS: ATORVASTATIN 40 MG TAB PO SCH (19:37)
[2017-06-14] VITALS (24 sets, daily range): BP systolic 82–142; BP diastolic 52–71; PULSE 87–124; RESP 20–22; TEMP 99–101.2; O2SAT 97–100
[2017-06-14] MEDS: INSULIN NovoLIN REGULAR SUPPLEMENTAL SCALE SQ SCH ×4 (01:13→18:15)
[2017-06-14] MEDS: AZTREONAM INJ 1,000 MG in SODIUM CHLORIDE 0.9% INJ 100 ML IV SCH ×3 (01:14→16:27)
[2017-06-14] MEDS: ACETAMINOPHEN 325 MG TAB PO PRN ×2 (01:15→16:28)
[2017-06-14] MEDS: FUROSEMIDE 40 MG/4 ML VIAL IV PUSH SCH ×3 (01:15→16:27)
[2017-06-14] MEDS: metroNIDAZOLE 500 MG INJ 100 ML IV SCH ×4 (01:15→20:51)
[2017-06-14] MEDS: PROPOFOL 1000 MG/100 ML INJ 100 ML IV PRN ×5 (01:16→22:00)
[2017-06-14 05:27] LABS: HEMATOCRIT 27.1 % (39.0-51.0); HEMOGLOBIN 8.6 GM/DL (13.0-17.0); MEAN CELL VOLUME 83.1 FL (80.0-100.0); MEAN CORPUSCULAR HEMOGLOBIN 26.3 PG (27.0-34.0); MEAN CORPUSCULAR HGB CONC 31.7 % (32.0-36.0); MEAN PLATELET VOLUME 8.7 FL (7.0-11.0); PLATELET COUNT 457 TH/MM3 (150-450); RED BLOOD COUNT 3.26 MIL/MM3 (4.50-5.90); RED CELL DISTRIBUTION WIDTH 18.6 % (11.6-17.2); WHITE BLOOD COUNT 14.1 TH/MM3 (4.0-11.0)
[2017-06-14] MEDS: FREE WATER G-TUBE SCH ×3 (06:00→20:53)
[2017-06-14 06:01] LABS: BICARBONATE 28.1 MEQ/L (21.0-32.0); CALCIUM 7.7 MG/DL (8.5-10.1); CREATININE 1.44 MG/DL (0.60-1.30)
[2017-06-14] MEDS: LINEZOLID 600 MG TAB PO SCH ×2 (06:06→16:27)
[2017-06-14] MEDS: LEVOTHYROXINE SODIUM 112 MCG TAB PO SCH (06:06)
[2017-06-14] MEDS: LEVOTHYROXINE SODIUM 25 MCG TAB PO SCH (06:06)
[2017-06-14] MEDS: CHLORHEXIDINE 0.12% (ORAL KIT) 15 ML CUP MT SCH ×2 (08:00→20:00)
[2017-06-14] MEDS: NUTRISOURCE FIBER POWDER 1 PACK G-TUBE SCH ×2 (09:00→20:52)
--- NOTE | 2017-06-14 09:07 | HHI.NPPN ---
Subjective General Problems: Anemia, Edema, Hypertension Renal Failure: Chronic, Acute, Stage III History of Present Illness 67-year-old male with a past medical history of ischemic heart disease, congestive heart failure, chronic kidney disease, atrial fibrillation, chronic anemia, diabetes mellitus, hypothyroidism, and peripheral vascular disease who was admitted with a complaint of worsening shortness of breath. I was called to see the patient because of elevated BUN and creatinine. The patient has known history of chronic kidney disease and his baseline creatinine seems to be in the range of 1.3-1.5 most of the time. Additional Remarks Problems include CKD, hypoxic encephalopathy, s/p PEA arrest, s/p CVA, respiratory failure. Creatinine is slightly higher today. On Lasix IV Q 8 hours. He has significant stool output. C.diff negative. Objective Data Data Vital Signs Date Time Temp Pulse Resp B/P (MAP) Pulse Ox O2 Delivery O2 Flow Rate FiO2 06/14/17 07:47 100 35 06/14/17 06:00 119 06/14/17 04:00 122 102/61 (75) 100 06/14/17 04:00 122 06/14/17 04:00 35 06/14/17 03:16 99 35 06/14/17 00:00 35 06/14/17 00:00 101.2 87 121/60 (80) 97 06/14/17 00:00 87 06/13/17 23:39 98 35 06/13/17 22:00 91 06/13/17 20:00 102.0 99 20 135/64 (87) 98 06/13/17 20:00 35 06/13/17 20:00 99 06/13/17 19:19 98 35 06/13/17 18:00 100 06/13/17 16:37 97 35 06/13/17 16:00 96 06/13/17 16:00 99.6 96 24 143/65 (91) 99 06/13/17 16:00 35 06/13/17 14:00 101 06/13/17 12:00 35 06/13/17 12:00 100.5 83 26 118/72 (87) 100 06/13/17 12:00 83 06/13/17 11:58 97 35 06/13/17 10:35 24 06/13/17 10:00 90 06/13/17 09:06 100 35 06/13/17 09:06 35 -: 06/14/17 0336 06/14/17 0336 Physical Exam Eyes Eye Exam: Pupils Equal Throat Throat Exam: Oral Mucosa Lester & Moist Neck Neck Exam: Neck Supple Pulmonary Resp Exam: Breath Sounds Equal, No Distress, Rhonchi, Decreased Bases Cardiology CV Exam: Regular, Normal Sinus Rhythm Gastrointestinal/Abdomen GI Exam: Soft, Non-Tender, Bowel Sounds Present Extremeties Extremities Exam: Trace Edema (Bilateral scalling and dryness of skin, in lower leg.) Neurologic Neuro Exam: Sedated Assessment/Plan Assessment Summary: KATERIN/Acute Renal Failure, Hypertension, CKD Stage III Problem List: (1) Acute kidney injury ICD Codes: N17.9 - Acute kidney failure, unspecified (2) Altered mental status ICD Codes: R41.82 - Altered mental status Status: Acute (3) Hx of deep venous thrombosis ICD Codes: Z86.718 - History of deep venous thrombosis Status: Chronic (4) CHF (congestive heart failure) ICD Codes: I50.9 - Congestive heart failure Status: Resolved (5) Diabetes ICD Codes: E11.9 - Diabetes Status: Chronic (6) Hypothyroidism ICD Codes: E03.9 - Hypothyroidism, unspecified Status: Chronic (7) Hypertension ICD Codes: I10 - Hypertension Status: Chronic (8) Chronic kidney disease, stage 3 ICD Codes: N18.3 - Chronic kidney disease, stage 3 (moderate) (9) Rhabdomyolysis ICD Codes: M62.82 - Rhabdomyolysis Plan Patient has been non oliguric. Has chronic kidney disease with baseline Creatinine 1.3-1.5. Most likely has chronic kidney disease due to Hypertensive or renovascular disease. Renal function is slightly worse, however, GFR may be near baseline. On Lasix 40 mg IV Q 8 hours. Avoid nephrotoxins. Prognosis is guarded. Problem Qualifiers (1) Hypertension: Qualified Codes: I10 - Essential (primary) hypertension Sedrick Acuña MD Jun 14, 2017 09:07
[2017-06-14] MEDS: SODIUM CHLORIDE 0.9% FLUSH 10 ML FLUSH IV FLUSH SCH ×2 (09:09→20:52)
[2017-06-14] MEDS: CARVEDILOL 3.125 MG TAB PO SCH ×2 (09:10→20:52)
[2017-06-14] MEDS: ASPIRIN 325 MG TAB PO SCH (09:10)
[2017-06-14] MEDS: RIVAROXABAN 20 MG TAB PO SCH (09:10)
[2017-06-14] MEDS: DOCUSATE SODIUM 50 MG/SENNA 8.6 MG TAB PO SCH ×2 (09:10→20:52)
--- NOTE | 2017-06-14 09:56 | HHI.IDPN ---
Note Infectious Disease Note ID COVERAGE for DR. Bello. Notes reviewed Admitted as acute CVA Has been on the vent Has had intermittent fevers, newest episode since 06/10 Has been an Abx for MRSA and E coli PNA Remains on the vent Not weaning Palliative mecidine evaluating patient, family possibly to decide on Friday (+) BM On TF Noted to have large ulcer on the back. WBC still elevated. Antibiotics Linezolid. Aztreonam. Current Medications Medications (Trade) Dose Ordered Sig/Gucci Route Start Time Stop Time Status Last Admin (NS Flush) 2 ml UNSCH PRN IV FLUSH 05/29/17 16:00 06/09/17 20:16 (NS Flush) 2 ml BID IV FLUSH 05/29/17 21:00 06/14/17 09:09 (Zofran Inj) 4 mg Q6H PRN IVP 05/29/17 16:00 (Kimberly-Colace) 1 tab BID PO 05/29/17 21:00 06/14/17 09:10 (Albuterol Neb) 2.5 mg Q2HR NEB PRN NEB 05/29/17 16:15 (Xanax) 0.25 mg Q6H PRN PO 05/29/17 16:15 06/05/17 21:40 (Lipitor) 40 mg HS PO 05/29/17 21:00 06/13/17 19:37 (Debrox 6.5% Otic) 5 drop DAILY EACH EAR 05/30/17 09:00 06/13/17 09:26 (Atarax) 25 mg Q6H PRN PO 05/29/17 16:15 Future Hold (Pred Forte 1% Opth Susp) 1 drop BID RIGHT EYE 05/29/17 21:00 06/13/17 19:37 (Synthroid) 112 mcg DAILY@0600 PO 05/30/17 06:00 06/14/17 06:06 (Synthroid) 25 mcg DAILY@0600 PO 05/30/17 06:00 06/14/17 06:06 (Aspirin) 325 mg DAILY PO 06/01/17 09:00 06/14/17 09:10 (Tylenol) 650 mg Q4H PRN PO 05/31/17 12:45 06/14/17 01:15 (Cozaar) 50 mg DAILY PO 06/01/17 11:15 Future Hold 06/04/17 09:41 (Peridex 0.12% Liq) 15 ml BID@08,20 MT 06/04/17 20:00 06/13/17 19:35 (Brethine Inj) 1 mg UNSCH PRN SQ 06/04/17 14:45 (Morphine Inj) 2 mg Q3H PRN IV PUSH 06/06/17 11:00 06/09/17 00:36 (Narcan Inj) 0.4 mg UNSCH PRN IV PUSH 06/06/17 10:30 (Coreg) 3.125 mg Q12HR PO 06/07/17 09:00 06/14/17 09:10 (Duoneb Neb) 1 ampule Q2HR NEB PRN NEB 06/07/17 07:45 Propofol 100 ml @ 2.484 mls/ hr TITRATE PRN IV 06/07/17 07:45 06/14/17 06:07 (Free Water) 250 ml Q8HR G-TUBE 06/08/17 09:45 06/14/17 06:00 (Zyvox) 600 mg Q12H PO 06/09/17 18:00 06/14/17 06:06 (Xarelto) 20 mg DAILY PO 06/10/17 09:00 06/14/17 09:10 (Lasix Inj) 40 mg Q8H IV PUSH 06/12/17 09:00 06/14/17 01:15 (Pepcid Liq) 40 mg BID NG 06/12/17 09:00 06/13/17 19:36 Aztreonam 1000 mg/ Sodium Chloride 100 ml @ 200 mls/hr Q8H IV 06/12/17 17:00 06/14/17 09:09 (Nutrisource Fiber Powder) 2 pack BID G-TUBE 06/13/17 09:00 06/13/17 21:00 (D50w (Vial) Inj) 25 ml UNSCH PRN IV PUSH 06/13/17 06:30 (NovoLIN R SUPPLEMENTAL SCALE) 1 Q6HR SQ 06/13/17 06:30 06/14/17 06:07 Metronidazole 100 ml @ 100 mls/hr Q6H IV 06/13/17 08:00 06/14/17 09:09 Allergies: Coded Allergies: Iodinated Contrast- Oral and IV Dye (Verified Allergy, Severe, Anaphylaxis , 05/29/17) acetaminophen (Unverified Allergy, Severe, "LIVER PROBLEMS", 05/29/17) diatrizoate meglumine (Unverified Allergy, Severe, Anaphylaxis, 05/29/17) gadobenic acid (Unverified Allergy, Severe, Anaphylaxis, 05/29/17) gadodiamide (Unverified Allergy, Severe, Anaphylaxis, 05/29/17) gadoteridol (Unverified Allergy, Severe, Anaphylaxis, 05/29/17) iodixanol (Unverified Allergy, Severe, Anaphylaxis, 05/29/17) iohexol (Unverified Allergy, Severe, Anaphylaxis, 05/29/17) penicillin G (Unverified Allergy, Severe, "HOT THROAT", 05/29/17) Uncoded Allergies: RADIOISOTOPES (Allergy, Severe, 09/27/13) UNKONWN RXN, LISTED ON PATIENT PAPERWORK FROM [facility]. OBJECTIVE; Vital Signs Date Time Temp Pulse Resp B/P (MAP) Pulse Ox O2 Delivery O2 Flow Rate FiO2 06/14/17 07:47 100 35 06/14/17 06:00 119 06/14/17 04:00 122 102/61 (75) 100 06/14/17 04:00 122 06/14/17 04:00 35 06/14/17 03:16 99 35 06/14/17 00:00 35 06/14/17 00:00 101.2 87 121/60 (80) 97 06/14/17 00:00 87 06/13/17 23:39 98 35 06/13/17 22:00 91 06/13/17 20:00 102.0 99 20 135/64 (87) 98 06/13/17 20:00 35 06/13/17 20:00 99 06/13/17 19:19 98 35 06/13/17 18:00 100 06/13/17 16:37 97 35 06/13/17 16:00 96 06/13/17 16:00 99.6 96 24 143/65 (91) 99 06/13/17 16:00 35 06/13/17 14:00 101 06/13/17 12:00 35 06/13/17 12:00 100.5 83 26 118/72 (87) 100 06/13/17 12:00 83 06/13/17 11:58 97 35 06/13/17 10:35 24 06/13/17 10:00 90 Laboratory Tests Test 06/12/17 11:28 06/13/17 05:40 06/14/17 03:36 White Blood Count 16.9 TH/MM3 15.8 TH/MM3 14.1 TH/MM3 Red Blood Count 3.18 MIL/MM3 2.85 MIL/MM3 3.26 MIL/MM3 Hemoglobin 8.2 GM/DL 7.7 GM/DL 8.6 GM/DL Hematocrit 26.6 % 23.7 % 27.1 % Mean Corpuscular Volume 83.7 FL 83.1 FL 83.1 FL Mean Corpuscular Hemoglobin 25.9 PG 26.9 PG 26.3 PG Mean Corpuscular Hemoglobin Concent 30.9 % 32.4 % 31.7 % Red Cell Distribution Width 18.9 % 18.7 % 18.6 % Platelet Count 499 TH/MM3 434 TH/MM3 457 TH/MM3 Mean Platelet Volume 8.4 FL 8.3 FL 8.7 FL Laboratory Tests Test 06/12/17 11:28 06/13/17 05:40 06/14/17 03:36 Blood Urea Nitrogen 27 MG/DL 33 MG/DL 37 MG/DL Creatinine 1.33 MG/DL 1.35 MG/DL 1.44 MG/DL Random Glucose 343 MG/DL 408 MG/DL 368 MG/DL Calcium Level 7.7 MG/DL 7.5 MG/DL 7.7 MG/DL Sodium Level 141 MEQ/L 142 MEQ/L 142 MEQ/L Potassium Level 3.8 MEQ/L 4.0 MEQ/L 3.7 MEQ/L Chloride Level 104 MEQ/L 106 MEQ/L 105 MEQ/L Carbon Dioxide Level 27.8 MEQ/L 28.7 MEQ/L 28.1 MEQ/L Anion Gap 9 MEQ/L 7 MEQ/L 9 MEQ/L Estimat Glomerular Filtration Rate 53 ML/MIN 52 ML/MIN 49 ML/MIN Imaging Chest X-Ray 06/07/17 0000 Signed Impressions: Service Date/Time: Wednesday, June 07, 2017 07:19 - CONCLUSION: ET tube in good position. Juan Carvalho MD FACR Abdomen X-Ray 06/05/17 0000 Signed Impressions: Service Date/Time: May 07:39 - CONCLUSION: Normal examination. The nasogastric is within the proximal stomach Desmond Hudson MD Head CT 06/04/17 0000 Signed Impressions: Service Date/Time: May 04:33 - CONCLUSION: 1. No acute intracranial abnormality seen. 2. Mild atrophy. 3. Persistent increased density within the right globe. Ap Quigley MD Head Magnetic Resonance Angiography 05/29/17 0000 Signed Impressions: Service Date/Time: May 18:31 - CONCLUSION: 1. Suboptimal exam degraded by motion as above. No definite occlusive disease. Nilson Jeffries MD Carotid Artery Ultrasound 05/29/17 0000 Signed Impressions: Service Date/Time: May 19:47 - CONCLUSION: Moderate visible plaque in both carotid arteries. Findings suggest at least a moderate stenosis. This would be better evaluated with CTA carotids. Nilson Jeffries MD Brain MRI 05/29/17 0000 Signed Impressions: Service Date/Time: May 18:31 - CONCLUSION: 1. There is increased signal in the posterior left MCA distribution on the diffusion weighted images characteristic of an acute or subacute infarct. Currently no mass shift or evidence for hemorrhage. Nilson Jeffries MD Abdomen/Pelvis CT 05/29/17 0000 Signed Impressions: Service Date/Time: May 18:10 - CONCLUSION: 1. No acute finding on CT abdomen and pelvis. 2. Calcified gallstones. 3. There is a small hiatal hernia. Distended bladder. 4. 2.3 cm lesion lower pole right kidney not clearly a cyst. Recommend renal ultrasound to assess for cyst versus solid mass. Nilson Jeffries MD Physical Exam GENERAL: Sedated on the vent. NAD HEENT: Head atraumatic, No icterus. No injection. Orally intubated NECK: Supple. No adenopathy. LUNGS: Basilar rhonchi bilateral. Breath sounds decreased. CARDIAC: Regular rate and rhythm. No murmurs. ABDOMEN: Obese, distended. Soft, non tender. EXTREMITIES: No clubbing, cyanosis or edema. Chronic ulcerations at RLE, dry SKIN: No brittney LINE: No evidence of infection : Conde in place NEURO: Sedated PSYCH: Unable to assess IMPRESSION: S/P PEA S/P stroke Fever. Recurrent. and persistent Pneumonia. MRSA. Respiratory failure RECOMMEND: Continue the zyvox po for MRSA. Continue Aztreonam for gram negative coverage. Allergic to Penicillin. D/W medical team - currently still aggressive care - will repeat C/S Add Diflucan Monitor the temp. Follow clinical response. Also on Flagyl. POA to decide on aggressiveness of care on Friday per palliative. Ashley Valentine MD Jun 14, 2017 09:56
--- NOTE | 2017-06-14 10:51 | HHI.FPPN ---
Subjective Remarks Patient seen and examined this morning. Nursing staff reports no acute events overnight, failed last CPAP attempt yesterday. Patient currently intubated (on A /C) and sedated, eye opening to verbal stimuli. Does not follow commands. Fever of 101.2 last night. (Jermaine Bell MD R1) Objective Vitals Vital Signs Date Time Temp Pulse Resp B/P (MAP) Pulse Ox O2 Delivery O2 Flow Rate FiO2 06/14/17 07:47 100 35 06/14/17 06:00 119 06/14/17 04:00 122 102/61 (75) 100 06/14/17 04:00 122 06/14/17 04:00 35 06/14/17 03:16 99 35 06/14/17 00:00 35 06/14/17 00:00 101.2 87 121/60 (80) 97 06/14/17 00:00 87 06/13/17 23:39 98 35 06/13/17 22:00 91 06/13/17 20:00 102.0 99 20 135/64 (87) 98 06/13/17 20:00 35 06/13/17 20:00 99 06/13/17 19:19 98 35 06/13/17 18:00 100 06/13/17 16:37 97 35 06/13/17 16:00 96 06/13/17 16:00 99.6 96 24 143/65 (91) 99 06/13/17 16:00 35 06/13/17 14:00 101 06/13/17 12:00 35 06/13/17 12:00 100.5 83 26 118/72 (87) 100 06/13/17 12:00 83 06/13/17 11:58 97 35 I/O 06/13/17 06/13/17 06/13/17 06/14/17 06/14/17 06/14/17 07:00 15:00 23:00 07:00 15:00 23:00 Intake Total 428 ml 237 ml 923 ml 1006 ml Output Total 1100 ml 0 ml 900 ml 1600 ml Balance -672 ml 237 ml 23 ml -594 ml IV Total 428 ml 237 ml 256 ml 407 ml Tube Feeding 547 ml 599 ml Tube Irrigant 120 ml Output Urine Total 1100 ml 700 ml 900 ml Stool Total 200 ml 700 ml Tube Feeding Residual Discard 0 ml # Bowel Movements 2 1 (Jermaine Bell MD R1) Result Diagram: 06/14/1733506/14/17335 Objective Remarks GENERAL: elderly man, intubated, laying in bed SKIN: scaling and dryness of right and left leg EYES: legally blind, yellow crusting of both eyes ENT: dental caries, dry crusting of lips; intubated CARDIOVASCULAR: Regular rate and rhythm RESPIRATORY: decreased breath sounds in b/l bases. 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 Currently on empiric antibiotics due to meeting sepsis criteria. Discharge Planning Unclear timetable at this time; poor prognosis PT- return to SNF at [facility]- patient will require speech therapy after discharge OT- OT at rehab, SNF Palliative to readdress comfort care, hospice with guardian on Friday 06/16 (Jermaine Bell MD R1) Problem List: (1) Pneumonia ICD Codes: J18.9 - Pneumonia Status: Acute Plan: Sputum culture grew MRSA and E. Coli. Possibly aspiration pneumonia ID consulted-appreciate recs. -Linezolid 600 mg Q12 (06/09 - ) -Aztreonam 1g q8H (06/12 - ) ABx history -cipro/flagyl (06/07) -Started Cefepime (06-07 - 06/10 ) -Continue Vancomycin (06/04 - 06/09) (2) Mechanically assisted ventilation ICD Codes: Z99.11 - Mechanically assisted ventilation Status: Resolved Plan: Extubated 06/05, status post cardiac arrest and return of spontaneous circulation on 06/04. Reintubated 06/07 for respiratory distress. -Continue ICU management Biology Lecturer consulted-appreciate recs -CPAP trials, continues to fail -Palliative care consulted (3) Ischemic stroke ICD Codes: I63.9 - Cerebral infarction, unspecified Status: Acute Plan: Patient presented with aphasia and left-sided weakness and mild right- sided weakness upon arrival to ED. Brain MRI demonstrated increased signal in the posterior left MCA distribution on the diffusion of weighted images characteristic of an acute or subacute infarct. Currently no mass shift or evidence hemorrhage. Carotid US: moderate visble plaque in both carotid arteries, findings suggest at least a moderate stenosis. possible significant carotid disease, though not a good candidate for further imaging of the carotids at this point Neurology consulted, recs appreciated. -Continue aspirin 325 mg PO daily -Continue Xarelto 20mg PO daily -Physical therapy (4) Sepsis ICD Codes: A41.9 - Sepsis Status: Acute Plan: ID consulted-appreciate recs -Abx per ID as above -Added Flagyl 500mg q6H -C diff pending (5) Congestive heart failure ICD Codes: I50.9 - Heart failure, unspecified Status: Chronic Plan: Echo form 03/14/17 demonstrated 35% ejection fraction CXR 06/01 revealed cardiomegaly and stable compared to CXR 05/22/17, which revealed slight blunting of the left costophrenic sulcus suggesting a small left pleural effusion CXR 06/01 demonstrated moderate pulmonary vascular congestion Echo 06/01: mildly dilated LV, EF 25%, mild to moderate aortic sclerosis Echo 06/04: EF 20% -Lasix 40mg IV q8H -Monitor HR and BP -Coreg 3.125mg BID -Monitor I/Os (6) Chronic kidney disease, stage 3 ICD Codes: N18.3 - Chronic kidney disease, stage 3 (moderate) Plan: Baseline Cr. 1.3-1.5; Stable around 1.2-1.6 -Continue to monitor -Nephrology consulted, recs appreciated -Avoid nephrotoxins -Follow I/O (7) Rhabdomyolysis ICD Codes: M62.82 - Rhabdomyolysis Plan: Elevated creatine kinase 2533 most likely due to tremors, decreased to 1397 Improving NS 125mls/hr Continue to monitor Nephrology consulted, appreciate recs (8) Atrial fibrillation ICD Codes: I48.91 - Atrial fibrillation Status: Chronic Plan: -Xarelto 20mg PO daily (9) Hypertension ICD Codes: I10 - Hypertension Status: Chronic Plan: -Continue home meds: Coreg 6.25 mg PO q12 Losartan 50mg PO daily (10) Neurogenic bladder ICD Codes: N31.9 - Neuromuscular dysfunction of bladder, unspecified Plan: Neurogenic bladder due to stroke -Conde catheter placed (11) Hyperlipidemia ICD Codes: E78.5 - Hyperlipidemia Status: Chronic Plan: -Continue Atorvastatin 40mg PO HS (12) Hypothyroidism ICD Codes: E03.9 - Hypothyroidism, unspecified Status: Chronic Plan: -Continue Levothyroxine 112mcg PO daily (13) Diabetes ICD Codes: E11.9 - Diabetes Status: Chronic Plan: -Low dose SS -Held home insulin (14) Nutrition, metabolism, and development symptoms ICD Codes: R63.8 - Other symptoms and signs concerning food and fluid intake Status: Acute Plan: Fluids: Free water q8H Diet: Tube feeds Electrolytes: monitor and replace as needed DVT ppx: Cyndiereljaron, SCDs (Jermaine Bell MD R1) Problem List: (1) Pneumonia ICD Codes: J18.9 - Pneumonia Status: Acute Plan: Sputum culture grew MRSA and E. Coli. Possibly aspiration pneumonia ID consulted-appreciate recs. -Linezolid 600 mg Q12 (06/09 - ) -Aztreonam 1g q8H (06/12 - ) ABx history -cipro/flagyl (06/07) -Started Cefepime (06-07 - 06/10 ) -Continue Vancomycin (06/04 - 06/09) (2) Mechanically assisted ventilation ICD Codes: Z99.11 - Mechanically assisted ventilation Status: Resolved Plan: Extubated 06/05, status post cardiac arrest and return of spontaneous circulation on 06/04. Reintubated 06/07 for respiratory distress. -Continue ICU management Biology Lecturer consulted-appreciate recs -CPAP trials, continues to fail -Palliative care consulted (3) Ischemic stroke ICD Codes: I63.9 - Cerebral infarction, unspecified Status: Acute Plan: Patient presented with aphasia and left-sided weakness and mild right- sided weakness upon arrival to ED. Brain MRI demonstrated increased signal in the posterior left MCA distribution on the diffusion of weighted images characteristic of an acute or subacute infarct. Currently no mass shift or evidence hemorrhage. Carotid US: moderate visble plaque in both carotid arteries, findings suggest at least a moderate stenosis. possible significant carotid disease, though not a good candidate for further imaging of the carotids at this point Neurology consulted, recs appreciated. -Continue aspirin 325 mg PO daily -Continue Xarelto 20mg PO daily -Physical therapy (4) Sepsis ICD Codes: A41.9 - Sepsis Status: Acute Plan: ID consulted-appreciate recs -Abx per ID as above -Added Flagyl 500mg q6H -C diff pending (5) Congestive heart failure ICD Codes: I50.9 - Heart failure, unspecified Status: Chronic Plan: Echo form 03/14/17 demonstrated 35% ejection fraction CXR 06/01 revealed cardiomegaly and stable compared to CXR 05/22/17, which revealed slight blunting of the left costophrenic sulcus suggesting a small left pleural effusion CXR 06/01 demonstrated moderate pulmonary vascular congestion Echo 06/01: mildly dilated LV, EF 25%, mild to moderate aortic sclerosis Echo 06/04: EF 20% -Lasix 40mg IV q8H -Monitor HR and BP -Coreg 3.125mg BID -Monitor I/Os (6) Chronic kidney disease, stage 3 ICD Codes: N18.3 - Chronic kidney disease, stage 3 (moderate) Plan: Baseline Cr. 1.3-1.5; Stable around 1.2-1.6 -Continue to monitor -Nephrology consulted, recs appreciated -Avoid nephrotoxins -Follow I/O (7) Rhabdomyolysis ICD Codes: M62.82 - Rhabdomyolysis Plan: Elevated creatine kinase 2533 most likely due to tremors, decreased to 1397 Improving NS 125mls/hr Continue to monitor Nephrology consulted, appreciate recs (8) Atrial fibrillation ICD Codes: I48.91 - Atrial fibrillation Status: Chronic Plan: -Xarelto 20mg PO daily (9) Hypertension ICD Codes: I10 - Hypertension Status: Chronic Plan: -Continue home meds: Coreg 6.25 mg PO q12 Losartan 50mg PO daily (10) Neurogenic bladder ICD Codes: N31.9 - Neuromuscular dysfunction of bladder, unspecified Plan: Neurogenic bladder due to stroke -Conde catheter placed (11) Hyperlipidemia ICD Codes: E78.5 - Hyperlipidemia Status: Chronic Plan: -Continue Atorvastatin 40mg PO HS (12) Hypothyroidism ICD Codes: E03.9 - Hypothyroidism, unspecified Status: Chronic Plan: -Continue Levothyroxine 112mcg PO daily (13) Diabetes ICD Codes: E11.9 - Diabetes Status: Chronic Plan: -Low dose SS -Held home insulin (14) Nutrition, metabolism, and development symptoms ICD Codes: R63.8 - Other symptoms and signs concerning food and fluid intake Status: Acute Plan: Fluids: Free water q8H Diet: Tube feeds Electrolytes: monitor and replace as needed DVT ppx: Ya Albarran Patient currently being followed by dry end operator. See the residents documentation for details. I saw and evaluated the patient regarding the lr portions of this evaluation and agree with the residents findings and plans as written. (Lex Urias MD) Problem Qualifiers (1) Pneumonia: Qualified Codes: J15.212 - Pneumonia due to methicillin resistant Staphylococcus aureus (2) Congestive heart failure: Qualified Codes: I50.9 - Heart failure, unspecified (3) Atrial fibrillation: Qualified Codes: I48.2 - Chronic atrial fibrillation (4) Hypertension: Qualified Codes: I10 - Essential (primary) hypertension Jermaine Bell MD R1 Jun 14, 2017 10:51 Lex Urias MD Jun 14, 2017 11:19
[2017-06-14] MEDS: CARBAMIDE PEROXIDE 6.5% OTIC SOLN 15 ML BTL EACH EAR SCH (11:06)
[2017-06-14] MEDS: FAMOTIDINE 40 MG/5 ML LIQ 50 ML BTL NG SCH ×2 (11:06→20:52)
[2017-06-14] MEDS: prednisoLONE ACETATE 1% OPHT SUSP 5 ML BTL RIGHT EYE SCH ×2 (11:06→20:52)
[2017-06-14] MEDS: FLUCONAZOLE 100 MG TAB PO SCH (12:25)
--- NOTE | 2017-06-14 13:40 | HHI.CCPN ---
Subjective Remarks/Hospital Course Patient is a 67-year-old white male was [facility] on 05/[facility]/17 with acute left MCA stroke with right hemiparesis. He has a past medical history significant for CHF with ejection fraction 25% (echo 06/01), Atrial fibrillation on Xarelto, chronic kidney disease stage III, rhabdomyolysis , Hypertension, Anemia, Hyperlipidemia, Diabetes Mellitus and Hypothyroidism. Apparently patient was in his regular state of health, improving right hemiparesis today am. A code blue was called overhead after the patient was found on the bed unresponsive and pulseless, which I responded immediately. CPR was started. See Code sheet for details-rhythm was pea with A. fib. Patient received 2 amp epinephrine, 1amp of bicarb. CPR continued and after total 5 min there was return of spontaneous circulation. I intubated patient during code, after return of spontaneous circulation. Patient was quickly moved to the ICU where resuscitation was continued with IV fluids boluses. I placed a right femoral arterial line for invasive cardiac/hemodynamic monitoring. As the blood pressure was trending down to low 90s systolic patient was started on Levophed infusion. I also placed a right subclavian central line. Patient remained in atrial fibrillation but blood pressure improved with map consistently above 65 with fluid resuscitation and Levophed infusion. I discussed with patient's guardian, who wants patient to be DNR, but wants to continue aggressive treatment. CT of the head is pending at this time. PE is unlikely as the patient had been on Xarelto for anticoagulation SUBJ 06/05/17: Intubated currently off sedation. Remains encephalopathic, sodium 150. Restart Lasix. Did not tolerate weaning trial due to apnea. Stat echo shows EF 20% 06/06 Reconsult: Rylie was called on floor for resp distress on arrival to [facility] patient was tachycardic, tachypneic and hypoxic with sats 80's on NRB. He was subsequently intubated and placed on mechanical ventilation. Patient was given Lasix 40mg IV. 06/08 Patient remains sedated and intubated. Afebrile. Renal function is improving with Cr: 1.55 today from 1.93 06/09: Remains sedated, orally intubated on mechanical ventilation. Hemoglobin 7.2 this morning. No melena or rectal bleeding overnight per discussion with RN 06/10: Remains sedated, orally intubated on mechanical ventilation. Received 1 unit PRBCs yesterday. 06/11: Remains sedated, orally intubated on mechanical ventilation. Daily C Pap trials. 06/12: failed cpap yesterday for weakness and tachypnea. 06/13: significant stool output yesterday and overnight. wbc still elevated. febrile overnight. placed rectal tube due to significant stool causing skin breakdown. sent c. diff pcr and started flagyl iv. still failing sbt daily. overall poor prognosis. 06/14: Remains sedated, orally intubated on mechanical ventilation. Tolerating tube feeds. Objective Vital Signs Date Time Temp Pulse Resp B/P (MAP) Pulse Ox O2 Delivery O2 Flow Rate FiO2 06/14/17 11:15 100 35 06/14/17 06:00 119 06/14/17 04:00 102/61 (75) 06/14/17 00:00 101.2 06/13/17 20:00 20 Intake and Output 06/14/17 06/14/17 06/15/17 08:00 16:00 00:00 Intake Total 1006 ml Output Total 1600 ml Balance -594 ml Result Diagram: 06/14/17 0336 06/14/17 0336 Imaging Last Impressions Chest X-Ray 06/07/17 0000 Signed Impressions: Service Date/Time: Wednesday, June 07, 2017 07:19 - CONCLUSION: ET tube in good position. Juan Carvalho MD FACR Abdomen X-Ray 06/05/17 0000 Signed Impressions: Service Date/Time: May 07:39 - CONCLUSION: Normal examination. The nasogastric is within the proximal stomach Desmond Hudson MD Head CT 06/04/17 0000 Signed Impressions: Service Date/Time: May 04:33 - CONCLUSION: 1. No acute intracranial abnormality seen. 2. Mild atrophy. 3. Persistent increased density within the right globe. Ap Quigley MD Head Magnetic Resonance Angiography 05/29/17 0000 Signed Impressions: Service Date/Time: May 18:31 - CONCLUSION: 1. Suboptimal exam degraded by motion as above. No definite occlusive disease. Nilson Jeffries MD Carotid Artery Ultrasound 05/29/17 0000 Signed Impressions: Service Date/Time: May 19:47 - CONCLUSION: Moderate visible plaque in both carotid arteries. Findings suggest at least a moderate stenosis. This would be better evaluated with CTA carotids. Nilson Jeffries MD Brain MRI 05/29/17 0000 Signed Impressions: Service Date/Time: May 18:31 - CONCLUSION: 1. There is increased signal in the posterior left MCA distribution on the diffusion weighted images characteristic of an acute or subacute infarct. Currently no mass shift or evidence for hemorrhage. Nilson Jeffries MD Abdomen/Pelvis CT 05/29/17 0000 Signed Impressions: Service Date/Time: May 18:10 - CONCLUSION: 1. No acute finding on CT abdomen and pelvis. 2. Calcified gallstones. 3. There is a small hiatal hernia. Distended bladder. 4. 2.3 cm lesion lower pole right kidney not clearly a cyst. Recommend renal ultrasound to assess for cyst versus solid mass. Nilson Jeffries MD Objective Remarks GENERAL: Elderly male lethargic, encephalopathic EYES: legally blind per previous notes ENT: Poor dentition. Orotracheally intubated CARDIOVASCULAR: normal rate, regular rhythm. sinus by tele. RESPIRATORY: equal chest rise. prvc mode. fio2 40% GASTROINTESTINAL soft, nontender, nondistended. no guarding. MUSCULOSKELETAL: S/p right great toe and fifth toe amputation, Small ulcers on bilateral anterior fleming, Non stageable pressure ulcer on bilateral sole, eschar left lateral foot NEUROLOGICAL: Sedated, Intubated, RASS -1. A/P Assessment and Plan Assessment: 67yM with encephalopathy and respiratory failure that is not improving after 2 weeks. now DNR. still no improvements and now with diarrhea and fever, concerning for infectious source. still without improvements, and may be declining again. overall poor prognosis. NEURO: Metabolic encephalopathy Hypoxic Ischemic Encephalopathy Status post left MCA stroke 6 days [place] - Encephalopathy post code probable anoxic injury - CT of the head 06/04 -no acute changes, MRI 05/29 had show L MCA stroke - Diprivan infusion for sedation. Daily sedation vacation. RESP: Acute hypoxic respiratory failure on mechanical ventilation - Continue with vent support keep sat >92% -Bronchodilators, ICU vent bundle. - SBT daily as farzad. continues to fail daily. CV: PEA arrest on 06/04 Cardiogenic shock-resolved Atrial fibrillation on chronic Xarelto Cardiomyopathy with EF 25% - Monitor HR and BP keep MAP>65mmHg - 2D Echo 06/01 with EF 25%. - continue lasix to 40mg iv q8h - Continue aspirin, Xarelto, Coreg 3.125mg BID. Not on Pk-I due to KATERIN GI: - PO pepcid - On tube feeds with Glucerna 1.5 with goal rate 45ml/hr add fiber to tube feeds : Chronic kidney disease, uknown baseline stage. - Monitor renal function, I/O's, electrolytes replacement as needed. -Renal is following- Dr. Martin. - lasix to 40mg iv q8h - Free water 250ml Q8 monitor sodium level. ID: -Pneumonia ( MRSA, E.coli) Sputum 06/04: MRSA, E.coli - Continue abx per ID ( Vanco, Cefepime stopped on 06/09). Started on Zyvox per ID. On aztreonam, Diflucan per ID HEME: - Monitor CBC, 1 unit PRBCs ordered for Hgb 7.2 on 06/09. ENDO: Hypothyroidism. - Sliding-scale insulin for glycemic control -Continue Synthroid. TSH: 1.2 PROPH: - Bilateral lower extremity SCDs. Continue Xarelto MSK: - Wound care consulted for bilateral sole pressure ulcer, eschar L lateral feet LINES: - Right subclavian central line placed 06/04/17 CODE STATUS DNR Young Deluca MD Jun 14, 2017 13:40
[2017-06-14] MEDS: ATORVASTATIN 40 MG TAB PO SCH (20:52)
[2017-06-14] MEDS ORDERED: INSULIN DETEMIR 100 UNITS/ML VIAL SQ SCH (21:00)
[2017-06-15] VITALS (18 sets, daily range): BP systolic 126–151; BP diastolic 58–67; PULSE 93–103; RESP 16–23; TEMP 99.5–102.2; O2SAT 99–100
[2017-06-15] MEDS: AZTREONAM INJ 1,000 MG in SODIUM CHLORIDE 0.9% INJ 100 ML IV SCH ×3 (01:21→17:00)
[2017-06-15] MEDS: FUROSEMIDE 40 MG/4 ML VIAL IV PUSH SCH ×3 (01:21→18:20)
[2017-06-15] MEDS: metroNIDAZOLE 500 MG INJ 100 ML IV SCH ×4 (01:21→20:56)
[2017-06-15] MEDS: INSULIN NovoLIN REGULAR SUPPLEMENTAL SCALE SQ SCH ×6 (01:21→23:18)
[2017-06-15] MEDS: PROPOFOL 1000 MG/100 ML INJ 100 ML IV PRN ×2 (03:31→09:08)
[2017-06-15 05:20] LABS: BILIRUBIN, URINE NEG (NEG); BLOOD, URINE NEG (NEG); GLUCOSE,URINE 150 mg/dL (NEG); KETONE, URINE NEG (NEG); MUCUS URINE FEW /lpf (OCC); NITRITE,URINE NEG (NEG); SQUAMOUS EPITHELIAL CELL URINE <1 /hpf (0-5); URINE COLOR YELLOW (YELLW/STRAW); URINE LEUKOCYTE ESTERASE TRACE (NEG)
[2017-06-15 05:28] LABS: MEAN CELL VOLUME 83.4 FL (80.0-100.0); MEAN CORPUSCULAR HEMOGLOBIN 27.7 PG (27.0-34.0); MEAN CORPUSCULAR HGB CONC 33.2 % (32.0-36.0); MEAN PLATELET VOLUME 9.3 FL (7.0-11.0); PLATELET COUNT 513 TH/MM3 (150-450); RED BLOOD COUNT 2.87 MIL/MM3 (4.50-5.90); RED CELL DISTRIBUTION WIDTH 19.1 % (11.6-17.2); WHITE BLOOD COUNT 18.8 TH/MM3 (4.0-11.0)
[2017-06-15 05:36] LABS: BICARBONATE 29.3 MEQ/L (21.0-32.0); CALCIUM 7.5 MG/DL (8.5-10.1); CREATININE 1.51 MG/DL (0.60-1.30)
[2017-06-15] MEDS: LINEZOLID 600 MG TAB PO SCH ×2 (05:49→18:00)
[2017-06-15] MEDS: LEVOTHYROXINE SODIUM 112 MCG TAB PO SCH (05:50)
[2017-06-15] MEDS: FREE WATER G-TUBE SCH ×3 (05:50→20:57)
[2017-06-15] MEDS: LEVOTHYROXINE SODIUM 25 MCG TAB PO SCH (05:50)
[2017-06-15] MEDS: CHLORHEXIDINE 0.12% (ORAL KIT) 15 ML CUP MT SCH ×2 (08:00→20:56)
[2017-06-15] MEDS: CARVEDILOL 3.125 MG TAB PO SCH ×2 (08:45→20:55)
[2017-06-15] MEDS: RIVAROXABAN 20 MG TAB PO SCH (08:45)
[2017-06-15] MEDS: ASPIRIN 325 MG TAB PO SCH (08:45)
[2017-06-15] MEDS: FLUCONAZOLE 100 MG TAB PO SCH (08:46)
[2017-06-15] MEDS: DOCUSATE SODIUM 50 MG/SENNA 8.6 MG TAB PO SCH ×2 (08:46→20:55)
[2017-06-15] MEDS: SODIUM CHLORIDE 0.9% FLUSH 10 ML FLUSH IV FLUSH SCH ×2 (08:47→20:55)
[2017-06-15] MEDS: CARBAMIDE PEROXIDE 6.5% OTIC SOLN 15 ML BTL EACH EAR SCH (08:48)
[2017-06-15] MEDS: NUTRISOURCE FIBER POWDER 1 PACK G-TUBE SCH ×2 (08:48→20:58)
[2017-06-15] MEDS: prednisoLONE ACETATE 1% OPHT SUSP 5 ML BTL RIGHT EYE SCH ×2 (08:48→20:55)
[2017-06-15] MEDS: FAMOTIDINE 40 MG/5 ML LIQ 50 ML BTL NG SCH ×2 (08:51→20:55)
--- NOTE | 2017-06-15 09:30 | HHI.NPPN ---
Subjective General Problems: Anemia, Edema, Hypertension Renal Failure: Chronic, Acute, Stage III History of Present Illness 67-year-old male with a past medical history of ischemic heart disease, congestive heart failure, chronic kidney disease, atrial fibrillation, chronic anemia, diabetes mellitus, hypothyroidism, and peripheral vascular disease who was admitted with a complaint of worsening shortness of breath. I was called to see the patient because of elevated BUN and creatinine. The patient has known history of chronic kidney disease and his baseline creatinine seems to be in the range of 1.3-1.5 most of the time. Additional Remarks Problems include CKD, hypoxic encephalopathy, s/p PEA arrest, s/p CVA, respiratory failure. Creatinine is slightly higher again today. On Lasix IV Q 8 hours. He has significant stool output. C.diff negative. Objective Data Data Vital Signs Date Time Temp Pulse Resp B/P (MAP) Pulse Ox O2 Delivery O2 Flow Rate FiO2 06/15/17 08:38 100 35 06/15/17 08:36 35 06/15/17 06:00 97 06/15/17 04:00 98 06/15/17 04:00 35 06/15/17 04:00 99.6 98 23 126/58 (80) 100 06/15/17 03:23 100 35 06/15/17 02:00 97 06/15/17 00:00 35 06/15/17 00:00 99.5 94 16 126/59 (81) 100 06/15/17 00:00 94 06/14/17 23:03 100 35 06/14/17 22:00 100 06/14/17 20:00 35 06/14/17 20:00 99.0 97 113/55 (74) 100 06/14/17 20:00 97 06/14/17 19:25 100 Ventilator 06/14/17 19:20 100 35 06/14/17 16:00 100.7 94 22 113/54 (73) 100 06/14/17 16:00 35 06/14/17 15:23 100 35 06/14/17 15:00 91 114/56 (75) 100 06/14/17 14:00 91 21 134/62 (86) 100 06/14/17 13:00 92 20 114/56 (75) 100 06/14/17 12:00 35 06/14/17 12:00 101.0 92 21 117/56 (76) 100 06/14/17 11:30 95 104/52 (69) 99 06/14/17 11:17 95 125/69 (87) 100 06/14/17 11:15 100 35 06/14/17 11:00 94 82/55 (64) 100 06/14/17 10:00 96 91/54 (66) 100 -: 06/15/17 0345 06/15/17 0345 Microbiology 06/14/17 Aerobic Blood Culture, Received Pending 06/14/17 Anaerobic Blood Culture, Received Pending 06/14/17 Aerobic Blood Culture, Received Pending 06/14/17 Anaerobic Blood Culture, Received Pending 06/14/17 Gram Stain - Final, Resulted 06/14/17 Sputum Culture, Resulted Pending Physical Exam Eyes Eye Exam: Pupils Equal Throat Throat Exam: Oral Mucosa [place] & Moist Neck Neck Exam: Neck Supple Pulmonary Resp Exam: Breath Sounds Equal, No Distress, Rhonchi, Decreased Bases Cardiology CV Exam: Regular, Normal Sinus Rhythm Gastrointestinal/Abdomen GI Exam: Soft, Non-Tender, Bowel Sounds Present Musculoskeletal MS Remarks ulcers on the feet. Chronic ischemic changes. Extremeties Extremities Exam: Trace Edema (Bilateral scalling and dryness of skin, in lower leg.) Neurologic Neuro Exam: Sedated Assessment/Plan Assessment Summary: KATERIN/Acute Renal Failure, Hypertension, CKD Stage III Problem List: (1) Acute kidney injury ICD Codes: N17.9 - Acute kidney failure, unspecified (2) Altered mental status ICD Codes: R41.82 - Altered mental status Status: Acute (3) Hx of deep venous thrombosis ICD Codes: Z86.718 - History of deep venous thrombosis Status: Chronic (4) CHF (congestive heart failure) ICD Codes: I50.9 - Congestive heart failure Status: Resolved (5) Diabetes ICD Codes: E11.9 - Diabetes Status: Chronic (6) Hypothyroidism ICD Codes: E03.9 - Hypothyroidism, unspecified Status: Chronic (7) Hypertension ICD Codes: I10 - Hypertension Status: Chronic (8) Chronic kidney disease, stage 3 ICD Codes: N18.3 - Chronic kidney disease, stage 3 (moderate) (9) Rhabdomyolysis ICD Codes: M62.82 - Rhabdomyolysis Plan Patient has been non oliguric. Has chronic kidney disease with baseline Creatinine 1.3-1.5. Most likely has chronic kidney disease due to Hypertensive or renovascular disease. Renal function is slightly worse, however, GFR may be near baseline. On Lasix 40 mg IV Q 8 hours. Avoid nephrotoxins. Prognosis is very poor. Problem Qualifiers (1) Hypertension: Qualified Codes: I10 - Essential (primary) hypertension Sedrick Acuña MD Jun 15, 2017 09:30
--- NOTE | 2017-06-15 11:11 | HHI.CCPN ---
Subjective Remarks/Hospital Course Patient is a 67-year-old white male was admitted to the [facility] service on 05/30/17 with acute left MCA stroke with right hemiparesis. He has a past medical history significant for CHF with ejection fraction 25% (echo 06/01), Atrial fibrillation on Xarelto, chronic kidney disease stage III, rhabdomyolysis , Hypertension, Anemia, Hyperlipidemia, Diabetes Mellitus and Hypothyroidism. Apparently patient was in his regular state of health, improving right hemiparesis today am. A code blue was called overhead after the patient was found on the bed unresponsive and pulseless, which I responded immediately. CPR was started. See Code sheet for details-rhythm was pea with A. fib. Patient received 2 amp epinephrine, 1amp of bicarb. CPR continued and after total 5 min there was return of spontaneous circulation. I intubated patient during code, after return of spontaneous circulation. Patient was quickly moved to the ICU where resuscitation was continued with IV fluids boluses. I placed a right femoral arterial line for invasive cardiac/hemodynamic monitoring. As the blood pressure was trending down to low 90s systolic patient was started on Levophed infusion. I also placed a right subclavian central line. Patient remained in atrial fibrillation but blood pressure improved with map consistently above 65 with fluid resuscitation and Levophed infusion. I discussed with patient's guardian, who wants patient to be DNR, but wants to continue aggressive treatment. CT of the head is pending at this time. PE is unlikely as the patient had been on Xarelto for anticoagulation SUBJ 06/05/17: Intubated currently off sedation. Remains encephalopathic, sodium 150. Restart Lasix. Did not tolerate weaning trial due to apnea. Stat echo shows EF 20% 06/06 Reconsult: Rylie was called on floor for resp distress on arrival [place] [facility] was tachycardic, tachypneic and hypoxic with sats 80's on NRB. He was subsequently intubated and placed on mechanical ventilation. Patient was given Lasix 40mg IV. 06/08 Patient remains sedated and intubated. Afebrile. Renal function is improving with Cr: 1.55 today from 1.93 06/09: Remains sedated, orally intubated on mechanical ventilation. Hemoglobin 7.2 this morning. No melena or rectal bleeding overnight per discussion with RN 06/10: Remains sedated, orally intubated on mechanical ventilation. Received 1 unit PRBCs yesterday. 06/11: Remains sedated, orally intubated on mechanical ventilation. Daily C Pap trials. 06/12: failed cpap yesterday for weakness and tachypnea. 06/13: significant stool output yesterday and overnight. wbc still elevated. febrile overnight. placed rectal tube due to significant stool causing skin breakdown. sent c. diff pcr and started flagyl iv. still failing sbt daily. overall poor prognosis. 06/14: Remains sedated, orally intubated on mechanical ventilation. Tolerating tube feeds. 06/15: Remains sedated, orally intubated on mechanical ventilation. Did not tolerate CPAP trials yesterday. Objective Vital Signs Date Time Temp Pulse Resp B/P (MAP) Pulse Ox O2 Delivery O2 Flow Rate FiO2 06/15/17 08:38 100 35 06/15/17 06:00 97 06/15/17 04:00 99.6 23 126/58 (80) 06/14/17 19:25 Ventilator Intake and Output 06/15/17 06/15/17 06/16/17 08:00 16:00 00:00 Intake Total 1745 ml Output Total 1000 ml Balance 745 ml Result Diagram: 06/15/17 0345 06/15/17 0345 Imaging Last Impressions Chest X-Ray 06/07/17 0000 Signed Impressions: Service Date/Time: Wednesday, June 07, 2017 07:19 - CONCLUSION: ET tube in good position. Juan Carvalho MD FACR Abdomen X-Ray 06/05/17 0000 Signed Impressions: Service Date/Time: May 07:39 - CONCLUSION: Normal examination. The nasogastric is within the proximal stomach Desmond Hudson MD Head CT 06/04/17 0000 Signed Impressions: Service Date/Time: May 04:33 - CONCLUSION: 1. No acute intracranial abnormality seen. 2. Mild atrophy. 3. Persistent increased density within the right globe. Ap Quigley MD Head Magnetic Resonance Angiography 05/29/17 0000 Signed Impressions: Service Date/Time: May 18:31 - CONCLUSION: 1. Suboptimal exam degraded by motion as above. No definite occlusive disease. Nilson Jeffries MD Carotid Artery Ultrasound 05/29/17 0000 Signed Impressions: Service Date/Time: May 19:47 - CONCLUSION: Moderate visible plaque in both carotid arteries. Findings suggest at least a moderate stenosis. This would be better evaluated with CTA carotids. Nilson Jeffries MD Brain MRI 05/29/17 0000 Signed Impressions: Service Date/Time: May 18:31 - CONCLUSION: 1. There is increased signal in the posterior left MCA distribution on the diffusion weighted images characteristic of an acute or subacute infarct. Currently no mass shift or evidence for hemorrhage. Nilson Jeffries MD Abdomen/Pelvis CT 05/29/17 0000 Signed Impressions: Service Date/Time: May 18:10 - CONCLUSION: 1. No acute finding on CT abdomen and pelvis. 2. Calcified gallstones. 3. There is a small hiatal hernia. Distended bladder. 4. 2.3 cm lesion lower pole right kidney not clearly a cyst. Recommend renal ultrasound to assess for cyst versus solid mass. Nilson Jeffries MD Objective Remarks GENERAL: Elderly male lethargic, encephalopathic EYES: legally blind per previous notes ENT: Poor dentition. Orotracheally intubated CARDIOVASCULAR: normal rate, regular rhythm. sinus by tele. RESPIRATORY: equal chest rise. prvc mode. fio2 40% GASTROINTESTINAL soft, nontender, nondistended. no guarding. MUSCULOSKELETAL: S/p right great toe and fifth toe amputation, Small ulcers on bilateral anterior fleming, Non stageable pressure ulcer on bilateral sole, eschar left lateral foot NEUROLOGICAL: Sedated, Intubated, RASS -1. A/P Assessment and Plan Assessment: 67yM with encephalopathy and respiratory failure that is not improving after 2 weeks. now DNR. still no improvements and now with diarrhea and fever, concerning for infectious source. still without improvements, and may be declining again. overall poor prognosis. NEURO: Metabolic encephalopathy Hypoxic Ischemic Encephalopathy Status post left MCA stroke 6 days [facility] - Encephalopathy post code probable anoxic injury - CT of the head 06/04 -no acute changes, MRI 05/29 had show L MCA stroke - Diprivan infusion for sedation. Daily sedation vacation. RESP: Acute hypoxic respiratory failure on mechanical ventilation - Continue with vent support keep sat >92% -Bronchodilators, ICU vent bundle. - SBT daily as farzad. continues to fail daily. CV: PEA arrest on 06/04 Cardiogenic shock-resolved Atrial fibrillation on chronic Xarelto Cardiomyopathy with EF 25% - Monitor HR and BP keep MAP>65mmHg - 2D Echo 06/01 with EF 25%. - continue lasix to 40mg iv q8h - Continue aspirin, Xarelto, Coreg 3.125mg BID. Not on Pk-I due to KATERIN GI: - PO pepcid - On tube feeds with Glucerna 1.5 with goal rate 45ml/hr add fiber to tube feeds : Chronic kidney disease, uknown baseline stage. - Monitor renal function, I/O's, electrolytes replacement as needed. -Renal is following- Dr. Martin. - lasix to 40mg iv q8h - Free water 250ml Q8 monitor sodium level. ID: -Pneumonia ( MRSA, E.coli) Sputum 06/04: MRSA, E.coli - Continue abx per ID ( Vanco, Cefepime stopped on 06/09). Started on Zyvox per ID. On aztreonam, Diflucan per ID HEME: - Monitor CBC, 1 unit PRBCs ordered for Hgb 7.2 on 06/09. ENDO: Hypothyroidism. - Sliding-scale insulin for glycemic control -Continue Synthroid. TSH: 1.2 PROPH: - Bilateral lower extremity SCDs. Continue Xarelto MSK: - Wound care consulted for bilateral sole pressure ulcer, eschar L lateral feet LINES: - Right subclavian central line placed 06/04/17 Palliative care following to assist with deciding goals of therapy. CODE STATUS DNR Young Deluca MD Jun 15, 2017 11:11
[2017-06-15] MEDS ORDERED: INSULIN DETEMIR 100 UNITS/ML VIAL SQ ONE (11:15)
--- NOTE | 2017-06-15 13:00 | HHI.FPPN ---
Subjective Remarks Patient seen and examined this morning. Nursing staff reports no acute events overnight, failed CPAP attempt today. Patient currently intubated (on A/C) and sedated, not responsive to verbal stimuli. Does not follow commands. Tmax of 100.7 last evening. (Jermaine Bell MD R1) Objective Vitals Vital Signs Date Time Temp Pulse Resp B/P (MAP) Pulse Ox O2 Delivery O2 Flow Rate FiO2 06/15/17 11:54 99 35 06/15/17 08:38 100 35 06/15/17 08:36 35 06/15/17 08:00 97 06/15/17 06:00 97 06/15/17 04:00 98 06/15/17 04:00 35 06/15/17 04:00 99.6 98 23 126/58 (80) 100 06/15/17 03:23 100 35 06/15/17 02:00 97 06/15/17 00:00 35 06/15/17 00:00 99.5 94 16 126/59 (81) 100 06/15/17 00:00 94 06/14/17 23:03 100 35 06/14/17 22:00 100 06/14/17 20:00 35 06/14/17 20:00 99.0 97 113/55 (74) 100 06/14/17 20:00 97 06/14/17 19:25 100 Ventilator 06/14/17 19:20 100 35 06/14/17 16:00 100.7 94 22 113/54 (73) 100 06/14/17 16:00 35 06/14/17 15:23 100 35 06/14/17 15:00 91 114/56 (75) 100 06/14/17 14:00 91 21 134/62 (86) 100 06/14/17 13:00 92 20 114/56 (75) 100 I/O 06/14/17 06/14/17 06/14/17 06/15/17 06/15/17 06/15/17 07:00 15:00 23:00 07:00 15:00 23:00 Intake Total 1006 ml 770 ml 1745 ml Output Total 1600 ml 1100 ml 1000 ml Balance -594 ml -330 ml 745 ml IV Total 407 ml 400 ml 357 ml Tube Feeding 599 ml 888 ml Tube Irrigant 120 ml Other 250 ml 500 ml Output Urine Total 900 ml 900 ml 600 ml Stool Total 700 ml 200 ml 400 ml (Jermaine Bell MD R1) Result Diagram: 06/15/1734406/15/17344 Objective Remarks GENERAL: elderly man, intubated, laying in bed SKIN: scaling and dryness of right and left leg EYES: legally blind, yellow crusting of both eyes ENT: dental caries, dry crusting of lips; intubated CARDIOVASCULAR: Regular rate and rhythm RESPIRATORY: decreased breath sounds in b/l bases. 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 Currently on empiric antibiotics due to meeting sepsis criteria. Discharge Planning Unclear timetable at this time; poor prognosis PT- return to SNF at [facility]- patient will require speech therapy after discharge OT- OT at rehab, SNF Palliative to readdress comfort care, hospice with guardian on Friday 06/16 (Jermaine Bell MD R1) Problem List: (1) Pneumonia ICD Codes: J18.9 - Pneumonia Status: Acute Plan: Sputum culture grew MRSA and E. Coli. Possibly aspiration pneumonia ID consulted-appreciate recs. -Linezolid 600 mg Q12 (06/09 - ) -Aztreonam 1g q8H (06/12 - ) -Diflucan 100 mg daily (06/14-) ABx history -cipro/flagyl (06/07) -Started Cefepime (06-07 - 06/10 ) -Continue Vancomycin (06/04 - 06/09) (2) Mechanically assisted ventilation ICD Codes: Z99.11 - Mechanically assisted ventilation Status: Resolved Plan: Extubated 06/05, status post cardiac arrest and return of spontaneous circulation on 06/04. Reintubated 06/07 for respiratory distress. -Continue ICU management Gas Meter Installer consulted-appreciate recs -CPAP trials, continues to fail -Palliative care consulted (3) Ischemic stroke ICD Codes: I63.9 - Cerebral infarction, unspecified Status: Acute Plan: Patient presented with aphasia and left-sided weakness and mild right- sided weakness upon arrival to ED. Brain MRI demonstrated increased signal in the posterior left MCA distribution on the diffusion of weighted images characteristic of an acute or subacute infarct. Currently no mass shift or evidence hemorrhage. Carotid US: moderate visble plaque in both carotid arteries, findings suggest at least a moderate stenosis. possible significant carotid disease, though not a good candidate for further imaging of the carotids at this point Neurology consulted, recs appreciated. -Continue aspirin 325 mg PO daily -Continue Xarelto 20mg PO daily -Physical therapy (4) Sepsis ICD Codes: A41.9 - Sepsis Status: Acute Plan: ID consulted-appreciate recs -Abx per ID as above -Added Flagyl 500mg q6H -C diff pending (5) Congestive heart failure ICD Codes: I50.9 - Heart failure, unspecified Status: Chronic Plan: Echo form 03/14/17 demonstrated 35% ejection fraction CXR 06/01 revealed cardiomegaly and stable compared to CXR 05/22/17, which revealed slight blunting of the left costophrenic sulcus suggesting a small left pleural effusion CXR 06/01 demonstrated moderate pulmonary vascular congestion Echo 06/01: mildly dilated LV, EF 25%, mild to moderate aortic sclerosis Echo 06/04: EF 20% -Lasix 40mg IV q8H -Monitor HR and BP -Coreg 3.125mg BID -Monitor I/Os (6) Chronic kidney disease, stage 3 ICD Codes: N18.3 - Chronic kidney disease, stage 3 (moderate) Plan: Baseline Cr. 1.3-1.5; Stable around 1.2-1.6 -Continue to monitor -Nephrology consulted, recs appreciated -Avoid nephrotoxins -Follow I/O (7) Rhabdomyolysis ICD Codes: M62.82 - Rhabdomyolysis Plan: Elevated creatine kinase 2533 most likely due to tremors, decreased to 1397 Improving NS 125mls/hr Continue to monitor Nephrology consulted, appreciate recs (8) Atrial fibrillation ICD Codes: I48.91 - Atrial fibrillation Status: Chronic Plan: -Xarelto 20mg PO daily (9) Hypertension ICD Codes: I10 - Hypertension Status: Chronic Plan: -Continue home meds: Coreg 6.25 mg PO q12 Losartan 50mg PO daily (10) Neurogenic bladder ICD Codes: N31.9 - Neuromuscular dysfunction of bladder, unspecified Plan: Neurogenic bladder due to stroke -Conde catheter placed (11) Hyperlipidemia ICD Codes: E78.5 - Hyperlipidemia Status: Chronic Plan: -Continue Atorvastatin 40mg PO HS (12) Hypothyroidism ICD Codes: E03.9 - Hypothyroidism, unspecified Status: Chronic Plan: -Continue Levothyroxine 112mcg PO daily (13) Diabetes ICD Codes: E11.9 - Diabetes Status: Chronic Plan: Blood sugar elevated to 400s. Added Levemir 15 on 06/14, increased to 25 on 06/15 -Sliding scale insulin -Held home insulin (14) Nutrition, metabolism, and development symptoms ICD Codes: R63.8 - Other symptoms and signs concerning food and fluid intake Status: Acute Plan: Fluids: Free water q8H Diet: Tube feeds Electrolytes: monitor and replace as needed DVT ppx: Ya Albarran Patient currently being followed by ux design lead. See the residents documentation for details. I saw and evaluated the patient regarding the lr portions of this evaluation and agree with the residents findings and plans as written. (Jermaine Bell MD R1) Problem List: (1) Pneumonia ICD Codes: J18.9 - Pneumonia Status: Acute Plan: Sputum culture grew MRSA and E. Coli. Possibly aspiration pneumonia ID consulted-appreciate recs. -Linezolid 600 mg Q12 (06/09 - ) -Aztreonam 1g q8H (06/12 - ) -Diflucan 100 mg daily (06/14-) ABx history -cipro/flagyl (06/07) -Started Cefepime (06-07 - 06/10 ) -Continue Vancomycin (06/04 - 06/09) (2) Mechanically assisted ventilation ICD Codes: Z99.11 - Mechanically assisted ventilation Status: Resolved Plan: Extubated 06/05, status post cardiac arrest and return of spontaneous circulation on 06/04. Reintubated 06/07 for respiratory distress. -Continue ICU management Gas Meter Installer consulted-appreciate recs -CPAP trials, continues to fail -Palliative care consulted (3) Ischemic stroke ICD Codes: I63.9 - Cerebral infarction, unspecified Status: Acute Plan: Patient presented with aphasia and left-sided weakness and mild right- sided weakness upon arrival to ED. Brain MRI demonstrated increased signal in the posterior left MCA distribution on the diffusion of weighted images characteristic of an acute or subacute infarct. Currently no mass shift or evidence hemorrhage. Carotid US: moderate visble plaque in both carotid arteries, findings suggest at least a moderate stenosis. possible significant carotid disease, though not a good candidate for further imaging of the carotids at this point Neurology consulted, recs appreciated. -Continue aspirin 325 mg PO daily -Continue Xarelto 20mg PO daily -Physical therapy (4) Sepsis ICD Codes: A41.9 - Sepsis Status: Acute Plan: ID consulted-appreciate recs -Abx per ID as above -Added Flagyl 500mg q6H -C diff pending (5) Congestive heart failure ICD Codes: I50.9 - Heart failure, unspecified Status: Chronic Plan: Echo form 03/14/17 demonstrated 35% ejection fraction CXR 06/01 revealed cardiomegaly and stable compared to CXR 05/22/17, which revealed slight blunting of the left costophrenic sulcus suggesting a small left pleural effusion CXR 06/01 demonstrated moderate pulmonary vascular congestion Echo 06/01: mildly dilated LV, EF 25%, mild to moderate aortic sclerosis Echo 06/04: EF 20% -Lasix 40mg IV q8H -Monitor HR and BP -Coreg 3.125mg BID -Monitor I/Os (6) Chronic kidney disease, stage 3 ICD Codes: N18.3 - Chronic kidney disease, stage 3 (moderate) Plan: Baseline Cr. 1.3-1.5; Stable around 1.2-1.6 -Continue to monitor -Nephrology consulted, recs appreciated -Avoid nephrotoxins -Follow I/O (7) Rhabdomyolysis ICD Codes: M62.82 - Rhabdomyolysis Plan: Elevated creatine kinase 2533 most likely due to tremors, decreased to 1397 Improving NS 125mls/hr Continue to monitor Nephrology consulted, appreciate recs (8) Atrial fibrillation ICD Codes: I48.91 - Atrial fibrillation Status: Chronic Plan: -Xarelto 20mg PO daily (9) Hypertension ICD Codes: I10 - Hypertension Status: Chronic Plan: -Continue home meds: Coreg 6.25 mg PO q12 Losartan 50mg PO daily (10) Neurogenic bladder ICD Codes: N31.9 - Neuromuscular dysfunction of bladder, unspecified Plan: Neurogenic bladder due to stroke -Conde catheter placed (11) Hyperlipidemia ICD Codes: E78.5 - Hyperlipidemia Status: Chronic Plan: -Continue Atorvastatin 40mg PO HS (12) Hypothyroidism ICD Codes: E03.9 - Hypothyroidism, unspecified Status: Chronic Plan: -Continue Levothyroxine 112mcg PO daily (13) Diabetes ICD Codes: E11.9 - Diabetes Status: Chronic Plan: Blood sugar elevated to 400s. Added Levemir 15 on 06/14, increased to 25 on 06/15 -Sliding scale insulin -Held home insulin (14) Nutrition, metabolism, and development symptoms ICD Codes: R63.8 - Other symptoms and signs concerning food and fluid intake Status: Acute Plan: Fluids: Free water q8H Diet: Tube feeds Electrolytes: monitor and replace as needed DVT ppx: Ya Albarran Patient currently being followed by ux design lead. See the residents documentation for details. I saw and evaluated the patient regarding the lr portions of this evaluation and agree with the residents findings and plans as written. (Lex Urias MD) Problem Qualifiers (1) Pneumonia: Qualified Codes: J15.212 - Pneumonia due to methicillin resistant Staphylococcus aureus (2) Congestive heart failure: Qualified Codes: I50.9 - Heart failure, unspecified (3) Atrial fibrillation: Qualified Codes: I48.2 - Chronic atrial fibrillation (4) Hypertension: Qualified Codes: I10 - Essential (primary) hypertension Jermaine Bell MD R1 Jun 15, 2017 13:00 Lex Urias MD Jun 17, 2017 12:50
--- NOTE | 2017-06-15 13:43 | HHI.IDPN ---
Note Infectious Disease Note ID COVERAGE for DR. Bello. Notes reviewed Admitted as acute CVA Has been on the vent Has had intermittent fevers, newest episode since 06/10 Has been an Abx for MRSA and E coli PNA Remains on the vent Not tolerating weaning Temps better repeat BC negative Repeat UA ok Repeat sputum C/S pending Palliative medicine evaluating patient, family possibly to decide on Friday (+) BM On TF Noted to have large ulcer on the back. WBC still elevated. Antibiotics Linezolid. Aztreonam. Current Medications Medications (Trade) Dose Ordered Sig/Gucci Route Start Time Stop Time Status Last Admin (NS Flush) 2 ml UNSCH PRN IV FLUSH 05/29/17 16:00 06/09/17 20:16 (NS Flush) 2 ml BID IV FLUSH 05/29/17 21:00 06/15/17 08:47 (Zofran Inj) 4 mg Q6H PRN IVP 05/29/17 16:00 (Kimberly-Colace) 1 tab BID PO 05/29/17 21:00 06/15/17 08:46 (Albuterol Neb) 2.5 mg Q2HR NEB PRN NEB 05/29/17 16:15 (Xanax) 0.25 mg Q6H PRN PO 05/29/17 16:15 06/05/17 21:40 (Lipitor) 40 mg HS PO 05/29/17 21:00 06/14/17 20:52 (Debrox 6.5% Otic) 5 drop DAILY EACH EAR 05/30/17 09:00 06/15/17 08:48 (Atarax) 25 mg Q6H PRN PO 05/29/17 16:15 Future Hold (Pred Forte 1% Opth Susp) 1 drop BID RIGHT EYE 05/29/17 21:00 06/15/17 08:48 (Synthroid) 112 mcg DAILY@0600 PO 05/30/17 06:00 06/15/17 05:50 (Synthroid) 25 mcg DAILY@0600 PO 05/30/17 06:00 06/15/17 05:50 (Aspirin) 325 mg DAILY PO 06/01/17 09:00 06/15/17 08:45 (Tylenol) 650 mg Q4H PRN PO 05/31/17 12:45 06/14/17 16:28 (Cozaar) 50 mg DAILY PO 06/01/17 11:15 Future Hold 06/04/17 09:41 (Peridex 0.12% Liq) 15 ml BID@08,20 MT 06/04/17 20:00 06/14/17 20:00 (Brethine Inj) 1 mg UNSCH PRN SQ 06/04/17 14:45 (Morphine Inj) 2 mg Q3H PRN IV PUSH 06/06/17 11:00 06/09/17 00:36 (Narcan Inj) 0.4 mg UNSCH PRN IV PUSH 06/06/17 10:30 (Coreg) 3.125 mg Q12HR PO 06/07/17 09:00 06/15/17 08:45 (Duoneb Neb) 1 ampule Q2HR NEB PRN NEB 06/07/17 07:45 Propofol 100 ml @ 2.484 mls/ hr TITRATE PRN IV 06/07/17 07:45 06/15/17 09:08 (Free Water) 250 ml Q8HR G-TUBE 06/08/17 09:45 06/15/17 05:50 (Zyvox) 600 mg Q12H PO 06/09/17 18:00 06/15/17 05:49 (Xarelto) 20 mg DAILY PO 06/10/17 09:00 06/15/17 08:45 (Lasix Inj) 40 mg Q8H IV PUSH 06/12/17 09:00 06/15/17 08:47 (Pepcid Liq) 40 mg BID NG 06/12/17 09:00 06/15/17 08:51 Aztreonam 1000 mg/ Sodium Chloride 100 ml @ 200 mls/hr Q8H IV 06/12/17 17:00 06/15/17 08:45 (Nutrisource Fiber Powder) 2 pack BID G-TUBE 06/13/17 09:00 06/15/17 08:48 (D50w (Vial) Inj) 25 ml UNSCH PRN IV PUSH 06/13/17 06:30 Metronidazole 100 ml @ 100 mls/hr Q6H IV 06/13/17 08:00 06/15/17 12:43 (Diflucan) 100 mg DAILY PO 06/14/17 10:00 06/15/17 08:46 (NovoLIN R SUPPLEMENTAL SCALE) 1 Q4HR SQ 06/15/17 12:00 06/15/17 12:42 (Levemir Inj) 25 units Q12HR SQ 06/15/17 21:00 Allergies: Coded Allergies: Iodinated Contrast- Oral and IV Dye (Verified Allergy, Severe, Anaphylaxis , 05/29/17) acetaminophen (Unverified Allergy, Severe, "LIVER PROBLEMS", 05/29/17) diatrizoate meglumine (Unverified Allergy, Severe, Anaphylaxis, 05/29/17) gadobenic acid (Unverified Allergy, Severe, Anaphylaxis, 05/29/17) gadodiamide (Unverified Allergy, Severe, Anaphylaxis, 05/29/17) gadoteridol (Unverified Allergy, Severe, Anaphylaxis, 05/29/17) iodixanol (Unverified Allergy, Severe, Anaphylaxis, 05/29/17) iohexol (Unverified Allergy, Severe, Anaphylaxis, 05/29/17) penicillin G (Unverified Allergy, Severe, "HOT THROAT", 05/29/17) Uncoded Allergies: RADIOISOTOPES (Allergy, Severe, 09/27/13) UNKONWN RXN, LISTED ON PATIENT PAPERWORK FROM [facility]. OBJECTIVE; Vital Signs Date Time Temp Pulse Resp B/P (MAP) Pulse Ox O2 Delivery O2 Flow Rate FiO2 06/15/17 12:00 99 06/15/17 11:54 99 35 06/15/17 10:00 96 06/15/17 08:38 100 35 06/15/17 08:36 35 06/15/17 08:00 35 06/15/17 08:00 97 06/15/17 08:00 99.6 97 126/58 (80) 99 06/15/17 06:00 97 06/15/17 04:00 98 06/15/17 04:00 35 06/15/17 04:00 99.6 98 23 126/58 (80) 100 06/15/17 03:23 100 35 06/15/17 02:00 97 06/15/17 00:00 35 06/15/17 00:00 99.5 94 16 126/59 (81) 100 06/15/17 00:00 94 06/14/17 23:03 100 35 06/14/17 22:00 100 06/14/17 20:00 35 06/14/17 20:00 99.0 97 113/55 (74) 100 06/14/17 20:00 97 06/14/17 19:25 100 Ventilator 06/14/17 19:20 100 35 06/14/17 16:00 100.7 94 22 113/54 (73) 100 06/14/17 16:00 35 06/14/17 15:23 100 35 06/14/17 15:00 91 114/56 (75) 100 06/14/17 14:00 91 21 134/62 (86) 100 Vital Signs Date Time Temp Pulse Resp B/P (MAP) Pulse Ox O2 Delivery O2 Flow Rate FiO2 06/14/17 07:47 100 35 06/14/17 06:00 119 06/14/17 04:00 122 102/61 (75) 100 06/14/17 04:00 122 06/14/17 04:00 35 06/14/17 03:16 99 35 06/14/17 00:00 35 06/14/17 00:00 101.2 87 121/60 (80) 97 06/14/17 00:00 87 06/13/17 23:39 98 35 06/13/17 22:00 91 06/13/17 20:00 102.0 99 20 135/64 (87) 98 06/13/17 20:00 35 06/13/17 20:00 99 06/13/17 19:19 98 35 06/13/17 18:00 100 06/13/17 16:37 97 35 06/13/17 16:00 96 06/13/17 16:00 99.6 96 24 143/65 (91) 99 06/13/17 16:00 35 06/13/17 14:00 101 06/13/17 12:00 35 06/13/17 12:00 100.5 83 26 118/72 (87) 100 06/13/17 12:00 83 06/13/17 11:58 97 35 06/13/17 10:35 24 06/13/17 10:00 90 Laboratory Tests Test 06/14/17 03:36 06/15/17 03:45 White Blood Count 14.1 TH/MM3 18.8 TH/MM3 Red Blood Count 3.26 MIL/MM3 2.87 MIL/MM3 Hemoglobin 8.6 GM/DL 8.0 GM/DL Hematocrit 27.1 % 24.0 % Mean Corpuscular Volume 83.1 FL 83.4 FL Mean Corpuscular Hemoglobin 26.3 PG 27.7 PG Mean Corpuscular Hemoglobin Concent 31.7 % 33.2 % Red Cell Distribution Width 18.6 % 19.1 % Platelet Count 457 TH/MM3 513 TH/MM3 Mean Platelet Volume 8.7 FL 9.3 FL Laboratory Tests Test 06/14/17 03:36 06/15/17 03:45 Blood Urea Nitrogen 37 MG/DL 46 MG/DL Creatinine 1.44 MG/DL 1.51 MG/DL Random Glucose 368 MG/DL 417 MG/DL Calcium Level 7.7 MG/DL 7.5 MG/DL Sodium Level 142 MEQ/L 142 MEQ/L Potassium Level 3.7 MEQ/L 3.9 MEQ/L Chloride Level 105 MEQ/L 106 MEQ/L Carbon Dioxide Level 28.1 MEQ/L 29.3 MEQ/L Anion Gap 9 MEQ/L 7 MEQ/L Estimat Glomerular Filtration Rate 49 ML/MIN 46 ML/MIN Microbiology Date/Time Source Procedure Growth Status 06/14/17 12:45 Blood Peripheral Aerobic Blood Culture - Preliminary NO GROWTH IN 1 DAY Resulted 06/14/17 12:45 Blood Peripheral Anaerobic Blood Culture - Preliminary NO GROWTH IN 1 DAY Resulted 06/14/17 12:40 Blood Peripheral Aerobic Blood Culture - Preliminary NO GROWTH IN 1 DAY Resulted 06/14/17 12:40 Blood Peripheral Anaerobic Blood Culture - Preliminary NO GROWTH IN 1 DAY Resulted 06/14/17 10:25 Sputum Endotracheal Gram Stain - Final Resulted 06/14/17 10:25 Sputum Endotracheal Sputum Culture Pending Resulted Imaging Chest X-Ray 06/07/17 0000 Signed Impressions: Service Date/Time: Wednesday, June 07, 2017 07:19 - CONCLUSION: ET tube in good position. Juan Carvalho MD FACR Abdomen X-Ray 06/05/17 0000 Signed Impressions: Service Date/Time: May 07:39 - CONCLUSION: Normal examination. The nasogastric is within the proximal stomach Desmond Hudson MD Head CT 06/04/17 0000 Signed Impressions: Service Date/Time: May 04:33 - CONCLUSION: 1. No acute intracranial abnormality seen. 2. Mild atrophy. 3. Persistent increased density within the right globe. Ap Quigley MD Head Magnetic Resonance Angiography 05/29/17 Signed Impressions: Service Date/Time: May 18:31 - CONCLUSION: 1. Suboptimal exam degraded by motion as above. No definite occlusive disease. Nilson Jeffries MD Carotid Artery Ultrasound 05/29/17 Signed Impressions: Service Date/Time: May 19:47 - CONCLUSION: Moderate visible plaque in both carotid arteries. Findings suggest at least a moderate stenosis. This would be better evaluated with CTA carotids. Nilson Jeffries MD Brain MRI 05/29/17 Signed Impressions: Service Date/Time: May 18:31 - CONCLUSION: 1. There is increased signal in the posterior left MCA distribution on the diffusion weighted images characteristic of an acute or subacute infarct. Currently no mass shift or evidence for hemorrhage. Nilson Jeffries MD Abdomen/Pelvis CT 05/29/17 Signed Impressions: Service Date/Time: May 18:10 - CONCLUSION: 1. No acute finding on CT abdomen and pelvis. 2. Calcified gallstones. 3. There is a small hiatal hernia. Distended bladder. 4. 2.3 cm lesion lower pole right kidney not clearly a cyst. Recommend renal ultrasound to assess for cyst versus solid mass. Nilson Jeffries MD Physical Exam GENERAL: Sedated on the vent. NAD HEENT: Head atraumatic, No icterus. No injection. Orally intubated NECK: Supple. No adenopathy. LUNGS: Basilar rhonchi bilateral. Breath sounds decreased. CARDIAC: Regular rate and rhythm. No murmurs. ABDOMEN: Obese, distended. Soft, non tender. EXTREMITIES: No clubbing, cyanosis or edema. Chronic ulcerations at RLE, dry SKIN: No brittney LINE: No evidence of infection : Conde in place NEURO: Sedated PSYCH: Unable to assess IMPRESSION: S/P PEA S/P stroke Fever. Recurrent. and persistent Pneumonia. MRSA. Respiratory failure RECOMMEND: Continue the zyvox po for MRSA. Continue Aztreonam for gram negative coverage. Allergic to Penicillin. Continue Diflucan Monitor the temp. Follow clinical response. Also on Flagyl. Folloe new C/S POA to decide on aggressiveness of care on Friday per palliative. Ashley Valentine MD Jun 15, 2017 13:43
[2017-06-15] MEDS: ATORVASTATIN 40 MG TAB PO SCH (20:55)
[2017-06-15] MEDS: INSULIN DETEMIR 100 UNITS/ML VIAL SQ SCH (20:56)
[2017-06-15] MEDS ORDERED: INSULIN DETEMIR 100 UNITS/ML VIAL SQ SCH (21:00)
[2017-06-16] VITALS (19 sets, daily range): BP systolic 118–143; BP diastolic 56–72; PULSE 73–126; RESP 14–18; TEMP 98.4–100.7; O2SAT 88–100
[2017-06-16] MEDS: AZTREONAM INJ 1,000 MG in SODIUM CHLORIDE 0.9% INJ 100 ML IV SCH ×3 (00:45→16:41)
[2017-06-16] MEDS: FUROSEMIDE 40 MG/4 ML VIAL IV PUSH SCH ×3 (00:45→16:42)
[2017-06-16] MEDS: PROPOFOL 1000 MG/100 ML INJ 100 ML IV PRN ×5 (00:45→21:21)
[2017-06-16] MEDS: metroNIDAZOLE 500 MG INJ 100 ML IV SCH ×3 (00:45→14:38)
[2017-06-16] MEDS: ACETAMINOPHEN 325 MG TAB PO PRN (02:34)
[2017-06-16] MEDS: INSULIN NovoLIN REGULAR SUPPLEMENTAL SCALE SQ SCH ×5 (03:30→21:18)
[2017-06-16] MEDS ORDERED: ALBUMIN 5% INJ 500 ML IV ONE (03:30)
[2017-06-16] MEDS: FREE WATER G-TUBE SCH ×3 (05:05→21:20)
[2017-06-16] MEDS: LEVOTHYROXINE SODIUM 25 MCG TAB PO SCH (05:57)
[2017-06-16] MEDS: LINEZOLID 600 MG TAB PO SCH ×2 (05:57→18:15)
[2017-06-16] MEDS: LEVOTHYROXINE SODIUM 112 MCG TAB PO SCH (05:59)
[2017-06-16] MEDS ORDERED: AMIODARONE INJ 150 MG in DEXTROSE 5% IN WATER 100ML INJ 100 ML IV ONE ×2 (06:23)
[2017-06-16] MEDS ORDERED: DIGOXIN 0.5 MG/2 ML VIAL IV PUSH ONE (06:30)
[2017-06-16] MEDS ORDERED: AMIODARONE INJ 450 MG in DEXTROSE 5% IN WATE(EXCEL) INJ 241 ML IV PRN ×2 (06:33)
--- NOTE | 2017-06-16 06:34 | HHI.CCPN ---
Subjective Remarks/Hospital Course Patient is a 67-year-old white male was admitted to the [facility] service on 05/30/17 with acute left MCA stroke with right hemiparesis. He has a past medical history significant for CHF with ejection fraction 25% (echo 06/01), Atrial fibrillation on Xarelto, chronic kidney disease stage III, rhabdomyolysis , Hypertension, Anemia, Hyperlipidemia, Diabetes Mellitus and Hypothyroidism. Apparently patient was in his regular state of health, improving right hemiparesis today am. A code blue was called overhead after the patient was found on the bed unresponsive and pulseless, which I responded immediately. CPR was started. See Code sheet for details-rhythm was pea with A. fib. Patient received 2 amp epinephrine, 1amp of bicarb. CPR continued and after total 5 min there was return of spontaneous circulation. I intubated patient during code, after return of spontaneous circulation. Patient was quickly moved to the ICU where resuscitation was continued with IV fluids boluses. I placed a right femoral arterial line for invasive cardiac/hemodynamic monitoring. As the blood pressure was trending down to low 90s systolic patient was started on Levophed infusion. I also placed a right subclavian central line. Patient remained in atrial fibrillation but blood pressure improved with map consistently above 65 with fluid resuscitation and Levophed infusion. I discussed with patient's guardian, who wants patient to be DNR, but wants to continue aggressive treatment. CT of the head is pending at this time. PE is unlikely as the patient had been on Xarelto for anticoagulation SUBJ 06/05/17: Intubated currently off sedation. Remains encephalopathic, sodium 150. Restart Lasix. Did not tolerate weaning trial due to apnea. Stat echo shows EF 20% 06/06 Reconsult: Rylie was called on floor for resp distress on arrival to [facility] patient was tachycardic, tachypneic and hypoxic with sats 80's on NRB. He was subsequently intubated and placed on mechanical ventilation. Patient was given Lasix 40mg IV. 06/08 Patient remains sedated and intubated. Afebrile. Renal function is improving with Cr: 1.55 today from 1.93 06/09: Remains sedated, orally intubated on mechanical ventilation. Hemoglobin 7.2 this morning. No melena or rectal bleeding overnight per discussion with RN 06/10: Remains sedated, orally intubated on mechanical ventilation. Received 1 unit PRBCs yesterday. 06/11: Remains sedated, orally intubated on mechanical ventilation. Daily C Pap trials. 06/12: failed cpap yesterday for weakness and tachypnea. 06/13: significant stool output yesterday and overnight. wbc still elevated. febrile overnight. placed rectal tube due to significant stool causing skin breakdown. sent c. diff pcr and started flagyl iv. still failing sbt daily. overall poor prognosis. 06/14: Remains sedated, orally intubated on mechanical ventilation. Tolerating tube feeds. 06/15: Remains sedated, orally intubated on mechanical ventilation. Did not tolerate CPAP trials yesterday. 06/16: Sedated, orally intubated on mechanical ventilation. Went into A. fib with RVR this morning. Hemoglobin 6.1 on a.m. labs. One unit PRBCs ordered and repeat CBC ordered to confirm. He did have a temperature spike of 102.2 overnight. No hypotension. No melena or rectal bleeding noted overnight. Objective Vital Signs Date Time Temp Pulse Resp B/P (MAP) Pulse Ox O2 Delivery O2 Flow Rate FiO2 06/16/17 06:00 123 06/16/17 04:23 100 35 06/16/17 04:00 99.1 17 122/72 (89) 06/14/17 19:25 Ventilator Intake and Output 06/16/17 06/16/17 06/17/17 08:00 16:00 00:00 Intake Total 800 ml Balance 800 ml Result Diagram: 06/16/17 0434 06/15/17 0345 Imaging Last Impressions Chest X-Ray 06/07/17 0000 Signed Impressions: Service Date/Time: Wednesday, June 07, 2017 07:19 - CONCLUSION: ET tube in good position. Juan Carvalho MD FACR Abdomen X-Ray 06/05/17 0000 Signed Impressions: Service Date/Time: May 07:39 - CONCLUSION: Normal examination. The nasogastric is within the proximal stomach Desmond Hudson MD Head CT 06/04/17 0000 Signed Impressions: Service Date/Time: May 04:33 - CONCLUSION: 1. No acute intracranial abnormality seen. 2. Mild atrophy. 3. Persistent increased density within the right globe. Ap Quigley MD Head Magnetic Resonance Angiography 05/29/17 0000 Signed Impressions: Service Date/Time: May 18:31 - CONCLUSION: 1. Suboptimal exam degraded by motion as above. No definite occlusive disease. Nilson Jeffries MD Carotid Artery Ultrasound 05/29/17 0000 Signed Impressions: Service Date/Time: May 19:47 - CONCLUSION: Moderate visible plaque in both carotid arteries. Findings suggest at least a moderate stenosis. This would be better evaluated with CTA carotids. Nilson Jeffries MD Brain MRI 05/29/17 0000 Signed Impressions: Service Date/Time: May 18:31 - CONCLUSION: 1. There is increased signal in the posterior left MCA distribution on the diffusion weighted images characteristic of an acute or subacute infarct. Currently no mass shift or evidence for hemorrhage. Nilson Jeffries MD Abdomen/Pelvis CT 05/29/17 0000 Signed Impressions: Service Date/Time: May 18:10 - CONCLUSION: 1. No acute finding on CT abdomen and pelvis. 2. Calcified gallstones. 3. There is a small hiatal hernia. Distended bladder. 4. 2.3 cm lesion lower pole right kidney not clearly a cyst. Recommend renal ultrasound to assess for cyst versus solid mass. Nilson Jeffries MD Objective Remarks GENERAL: Elderly male lethargic, encephalopathic EYES: legally blind per previous notes ENT: Poor dentition. Orotracheally intubated CARDIOVASCULAR: normal rate, regular rhythm. sinus by tele. RESPIRATORY: equal chest rise. prvc mode. fio2 40% GASTROINTESTINAL soft, nontender, nondistended. no guarding. MUSCULOSKELETAL: S/p right great toe and fifth toe amputation, Small ulcers on bilateral anterior fleming, Non stageable pressure ulcer on bilateral sole, eschar left lateral foot NEUROLOGICAL: Sedated, Intubated, RASS -1. A/P Assessment and Plan Assessment: 67yM with encephalopathy and respiratory failure that is not improving after 2 weeks. now DNR. still no improvements and now with diarrhea and fever, concerning for infectious source. still without improvements, and may be declining again. overall poor prognosis. NEURO: Metabolic encephalopathy Hypoxic Ischemic Encephalopathy Status post left MCA stroke 6 days [employer] - Encephalopathy post code probable anoxic injury - CT of the head 06/04 -no acute changes, MRI 05/29 had show L MCA stroke - Diprivan infusion for sedation. Daily sedation vacation. RESP: Acute hypoxic respiratory failure on mechanical ventilation - Continue with vent support keep sat >92% -Bronchodilators, ICU vent bundle. - SBT daily as farzad. continues to fail daily. CV: PEA arrest on 06/04 Cardiogenic shock-resolved Atrial fibrillation on chronic Xarelto Cardiomyopathy with EF 25% - Monitor HR and BP keep MAP>65mmHg - 2D Echo 06/01 with EF 25%. - continue lasix to 40mg iv q8h - Continue aspirin, Coreg 3.125mg BID. Not on Pk-I due to KATERIN. Will hold Xarelto in view of drop in hemoglobin on 06/16 Digoxin 0.5 mg IV stat followed by 0.125 mg by mouth daily. Ordered amiodarone load with infusion to attempt rate control and pharmacologic cardioversion on 06/16 GI: - PO pepcid - On tube feeds with Glucerna 1.5 with goal rate 45ml/hr add fiber to tube feeds : Chronic kidney disease, uknown baseline stage. - Monitor renal function, I/O's, electrolytes replacement as needed. -Renal is following- Dr. Martin. - lasix 40mg iv q8h - Free water 250ml Q8 monitor sodium level. ID: -Pneumonia ( MRSA, E.coli) Sputum 06/04: MRSA, E.coli - Continue abx per ID ( Vanco, Cefepime stopped on 06/09). Started on Zyvox per ID. On aztreonam, Diflucan per ID HEME: - Monitor CBC, 1 unit PRBCs ordered for Hgb 7.2 on 06/09. One unit PRBCs ordered for hemoglobin 6.1 ENDO: Hypothyroidism. - Sliding-scale insulin for glycemic control -Continue Synthroid. TSH: 1.2 PROPH: - Bilateral lower extremity SCDs. Continue Xarelto MSK: - Wound care consulted for bilateral sole pressure ulcer, eschar L lateral feet LINES: - Right subclavian central line placed 06/04/17 Palliative care following to assist with deciding goals of therapy. CODE STATUS DNR Young Deluca MD Jun 16, 2017 06:34
[2017-06-16] MEDS: AMIODARONE INJ 450 MG in SODIUM CHLOR 0.9% (EXCEL) INJ 241 ML IV PRN ×2 (08:26→14:24)
[2017-06-16] MEDS: CHLORHEXIDINE 0.12% (ORAL KIT) 15 ML CUP MT SCH ×2 (08:26→21:18)
[2017-06-16] MEDS: CARBAMIDE PEROXIDE 6.5% OTIC SOLN 15 ML BTL EACH EAR SCH (08:53)
[2017-06-16] MEDS: NUTRISOURCE FIBER POWDER 1 PACK G-TUBE SCH ×2 (08:53→21:19)
[2017-06-16] MEDS: FLUCONAZOLE 100 MG TAB PO SCH (08:54)
[2017-06-16] MEDS: DOCUSATE SODIUM 50 MG/SENNA 8.6 MG TAB PO SCH ×2 (08:54→21:20)
[2017-06-16] MEDS: DIGOXIN 0.125 MG TAB PO SCH (08:54)
[2017-06-16] MEDS: ASPIRIN 325 MG TAB PO SCH (08:54)
[2017-06-16] MEDS: CARVEDILOL 3.125 MG TAB PO SCH ×2 (08:55→21:19)
[2017-06-16] MEDS: FAMOTIDINE 40 MG/5 ML LIQ 50 ML BTL NG SCH ×2 (08:56→21:19)
[2017-06-16] MEDS: prednisoLONE ACETATE 1% OPHT SUSP 5 ML BTL RIGHT EYE SCH ×2 (08:57→21:20)
[2017-06-16] MEDS: INSULIN DETEMIR 100 UNITS/ML VIAL SQ SCH ×2 (08:57→21:20)
[2017-06-16] MEDS: SODIUM CHLORIDE 0.9% FLUSH 10 ML FLUSH IV FLUSH SCH ×2 (09:00→21:19)
--- NOTE | 2017-06-16 09:01 | EKG ---
Date Performed: 06/16/2017 Time Performed: 05:57:16 PTAGE: 67 years EKG: Atrial fibrillation with rapid ventricular response. Nonspecific ST and T wave abnormalitie s Abnormal ECG No significant change from prior electrocardiogram. PREVIOUS TRACING : 06/04/2017 14.18 DOCTOR: Corona Lebron Interpretating Date/Time 06/16/2017 09:00:00
--- NOTE | 2017-06-16 09:11 | RADRPT ---
EXAM DATE/TIME: 06/16/2017 08:06 [place] COMPARISON: CHEST SINGLE AP, June 07, 2017, 7:19. INDICATIONS : Follow up respiratory failure. MEDICAL HISTORY : Congestive heart failure. Hypothyroidism. Deep vein thrombosis. Myocardial infarction.Dementia. Gastr oesophageal reflux disease. Diabetes mellitus type II. Renal failure. Chronic obstructive pulmonary d isease. Cardiovascular disease.Chronic obstructive pulmonary disease. Diverticulitis. SURGICAL HISTORY : CABG.Bilateral cataract surgery. Amputation of right great toe and little toe. ENCOUNTER: Subsequent ACUITY: 1 day PAIN SCORE: Non-responsive. LOCATION: Bilateral chest FINDINGS: The patient is status post sternotomy. ET tube is 4 cm from iman. The NG tube extends into the stom ach. The heart size is enlarged. The lungs are showed diffuse mixed interstitial and alveolar consoli dation.. CONCLUSION: Diffuse consolidation likely related to edema/CHF. This is unchanged from the prior exam. Ap Quigley MD on June 16, 2017 at 9:07 Board Certified Radiologist. This report was verified electronically.
--- NOTE | 2017-06-16 10:07 | HHI.FPPN ---
Subjective Remarks Pt seen and examined this morning. Pt intubated and sedated. Afib with RVR overnight. (Ángel Pulido MD, R2) Objective Vitals Vital Signs Date Time Temp Pulse Resp B/P (MAP) Pulse Ox O2 Delivery O2 Flow Rate FiO2 06/16/17 08:26 93 127/58 06/16/17 08:25 93 127/58 06/16/17 07:19 100 35 06/16/17 07:00 98.4 114 14 143/64 (90) 88 06/16/17 06:00 123 06/16/17 04:23 100 35 06/16/17 04:00 126 06/16/17 04:00 35 06/16/17 04:00 99.1 126 17 122/72 (89) 100 06/16/17 02:00 91 06/16/17 01:03 100 35 06/16/17 00:00 100.7 86 18 126/59 (81) 99 06/16/17 00:00 86 06/16/17 00:00 35 06/15/17 22:05 100 35 06/15/17 22:00 93 06/15/17 20:00 102.2 103 19 151/67 (95) 99 06/15/17 20:00 35 06/15/17 20:00 103 06/15/17 19:02 100 35 06/15/17 18:00 101 06/15/17 16:41 100 35 06/15/17 16:00 35 06/15/17 16:00 101 06/15/17 16:00 101.5 100 139/62 (87) 100 06/15/17 14:00 95 06/15/17 12:00 99 06/15/17 12:00 100.0 99 139/62 (87) 100 06/15/17 12:00 35 06/15/17 11:54 99 35 I/O 06/15/17 06/15/17 06/15/17 06/16/17 06/16/17 06/16/17 07:00 15:00 23:00 07:00 15:00 23:00 Intake Total 1745 ml 986 ml 2341 ml Output Total 1000 ml 100.0 ml 950 ml 825 ml Balance 745 ml -100.0 ml 36 ml 1516 ml IV Total 357 ml 986 ml 900 ml Tube Feeding 888 ml 941 ml Tube Irrigant 500 ml Other 500 ml Output Urine Total 600 ml 650 ml 525 ml Stool Total 400 ml 300 ml 300 ml Tube Feeding Residual Discard 100.0 ml (Ángel Pulido MD, R2) Result Diagram: 06/16/17 0434 06/15/17 0345 Objective Remarks GENERAL: elderly man, intubated, laying in bed SKIN: scaling and dryness of right and left leg EYES: legally blind, yellow crusting of both eyes ENT: dental caries, dry crusting of lips; intubated CARDIOVASCULAR: Regular rate and rhythm RESPIRATORY: decreased breath sounds in b/l bases. intubated and sedated GASTROINTESTINAL: protuberant abdomen, BS+ MUSCULOSKELETAL: contractures of right and left hand, right great toe and fifth toe amputation, skin is erythematous, dry, several ulcers on lower extremities, covered in clean dry intact dressings NEUROLOGICAL: Sedated (Ángel Pulido MD, R2) A/P Assessment and Plan 67 year old male with CHF (EF 35%), HTN, CKD stage 3, CAD s/p 3 vessel CABG, Afib on xarelto, HTN, HLD, DM admitted for acute infarct of posterior left MCA. Currently on empiric antibiotics due to meeting sepsis criteria. Discharge Planning Unclear timetable at this time; poor prognosis PT- return to SNF at [facility]- patient will require speech therapy after discharge OT- OT at rehab, SNF Palliative to readdress comfort care, hospice with guardian on Friday 06/16 (Ángel Pulido MD, R2) Problem List: (1) Anemia ICD Codes: D64.9 - Anemia, unspecified Plan: Hgb 6.1 today. Being transfused pRBC with confirmation CBC -Monitor H/H s/p transfusion (2) Pneumonia ICD Codes: J18.9 - Pneumonia Status: Acute Plan: Sputum culture grew MRSA and E. Coli. Possibly aspiration pneumonia ID consulted-appreciate recs. -Linezolid 600 mg Q12 (06/09 - ) -Aztreonam 1g q8H (06/12 - ) -Diflucan 100 mg daily (06/14-) -Flagyl 500mg q6H (06/13 - ) ABx history -cipro/flagyl (06/07) -Started Cefepime (06-07 - 06/10 ) -Vancomycin (06/04 - 06/09) (3) Mechanically assisted ventilation ICD Codes: Z99.11 - Mechanically assisted ventilation Status: Resolved Plan: Extubated 06/05, status post cardiac arrest and return of spontaneous circulation on 06/04. Reintubated 06/07 for respiratory distress. -Continue ICU management Dancer Or Choreographer consulted-appreciate recs -CPAP trials, continues to fail -Palliative care consulted (4) Ischemic stroke ICD Codes: I63.9 - Cerebral infarction, unspecified Status: Acute Plan: Patient presented with aphasia and left-sided weakness and mild right- sided weakness upon arrival to ED. Brain MRI demonstrated increased signal in the posterior left MCA distribution on the diffusion of weighted images characteristic of an acute or subacute infarct. Currently no mass shift or evidence hemorrhage. Carotid US: moderate visble plaque in both carotid arteries, findings suggest at least a moderate stenosis. possible significant carotid disease, though not a good candidate for further imaging of the carotids at this point Neurology consulted, recs appreciated. -Continue aspirin 325 mg PO daily -Hold Xarelto 20mg PO daily -Physical therapy (5) Sepsis ICD Codes: A41.9 - Sepsis Status: Acute Plan: ID consulted-appreciate recs -Abx per ID as above (6) Congestive heart failure ICD Codes: I50.9 - Heart failure, unspecified Status: Chronic Plan: Echo form 03/14/17 demonstrated 35% ejection fraction CXR 06/01 revealed cardiomegaly and stable compared to CXR 05/22/17, which revealed slight blunting of the left costophrenic sulcus suggesting a small left pleural effusion CXR 06/01 demonstrated moderate pulmonary vascular congestion Echo 06/01: mildly dilated LV, EF 25%, mild to moderate aortic sclerosis Echo 06/04: EF 20% -Lasix 40mg IV q8H -Monitor HR and BP -Coreg 3.125mg BID -Monitor I/Os (7) Chronic kidney disease, stage 3 ICD Codes: N18.3 - Chronic kidney disease, stage 3 (moderate) Plan: Baseline Cr. 1.3-1.5; Stable around 1.2-1.6 -Continue to monitor -Nephrology consulted, recs appreciated -Avoid nephrotoxins -Follow I/O (8) Atrial fibrillation ICD Codes: I48.91 - Atrial fibrillation Status: Chronic Plan: -Start digoxin daily -Amiodarone infusion -Xarelto 20mg PO daily (9) Hypertension ICD Codes: I10 - Hypertension Status: Chronic Plan: -Continue home meds: Coreg 6.25 mg PO q12 Losartan 50mg PO daily (10) Neurogenic bladder ICD Codes: N31.9 - Neuromuscular dysfunction of bladder, unspecified Plan: Neurogenic bladder due to stroke -Conde catheter placed (11) Hyperlipidemia ICD Codes: E78.5 - Hyperlipidemia Status: Chronic Plan: -Continue Atorvastatin 40mg PO HS (12) Hypothyroidism ICD Codes: E03.9 - Hypothyroidism, unspecified Status: Chronic Plan: -Continue Levothyroxine 112mcg PO daily (13) Diabetes ICD Codes: E11.9 - Diabetes Status: Chronic Plan: Blood sugar elevated to 400s. Added Levemir 15 on 06/14, increased to 25U q12H on 06/15 -Sliding scale insulin -Held home insulin (14) Nutrition, metabolism, and development symptoms ICD Codes: R63.8 - Other symptoms and signs concerning food and fluid intake Status: Acute Plan: Fluids: Free water q8H Diet: Tube feeds Electrolytes: monitor and replace as needed DVT ppx: SCDs (Ángel Pulido MD, R2) Problem List: (1) Anemia ICD Codes: D64.9 - Anemia, unspecified Plan: Hgb 6.1 today. Being transfused pRBC with confirmation CBC -Monitor H/H s/p transfusion (2) Pneumonia ICD Codes: J18.9 - Pneumonia Status: Acute Plan: Sputum culture grew MRSA and E. Coli. Possibly aspiration pneumonia ID consulted-appreciate recs. -Linezolid 600 mg Q12 (06/09 - ) -Aztreonam 1g q8H (06/12 - ) -Diflucan 100 mg daily (06/14-) -Flagyl 500mg q6H (06/13 - ) ABx history -cipro/flagyl (06/07) -Started Cefepime (06-07 - 06/10 ) -Vancomycin (06/04 - 06/09) (3) Mechanically assisted ventilation ICD Codes: Z99.11 - Mechanically assisted ventilation Status: Resolved Plan: Extubated 06/05, status post cardiac arrest and return of spontaneous circulation on 06/04. Reintubated 06/07 for respiratory distress. -Continue ICU management Dancer Or Choreographer consulted-appreciate recs -CPAP trials, continues to fail -Palliative care consulted (4) Ischemic stroke ICD Codes: I63.9 - Cerebral infarction, unspecified Status: Acute Plan: Patient presented with aphasia and left-sided weakness and mild right- sided weakness upon arrival to ED. Brain MRI demonstrated increased signal in the posterior left MCA distribution on the diffusion of weighted images characteristic of an acute or subacute infarct. Currently no mass shift or evidence hemorrhage. Carotid US: moderate visble plaque in both carotid arteries, findings suggest at least a moderate stenosis. possible significant carotid disease, though not a good candidate for further imaging of the carotids at this point Neurology consulted, recs appreciated. -Continue aspirin 325 mg PO daily -Hold Xarelto 20mg PO daily -Physical therapy (5) Sepsis ICD Codes: A41.9 - Sepsis Status: Acute Plan: ID consulted-appreciate recs -Abx per ID as above (6) Congestive heart failure ICD Codes: I50.9 - Heart failure, unspecified Status: Chronic Plan: Echo form 03/14/17 demonstrated 35% ejection fraction CXR 06/01 revealed cardiomegaly and stable compared to CXR 05/22/17, which revealed slight blunting of the left costophrenic sulcus suggesting a small left pleural effusion CXR 06/01 demonstrated moderate pulmonary vascular congestion Echo 06/01: mildly dilated LV, EF 25%, mild to moderate aortic sclerosis Echo 06/04: EF 20% -Lasix 40mg IV q8H -Monitor HR and BP -Coreg 3.125mg BID -Monitor I/Os (7) Chronic kidney disease, stage 3 ICD Codes: N18.3 - Chronic kidney disease, stage 3 (moderate) Plan: Baseline Cr. 1.3-1.5; Stable around 1.2-1.6 -Continue to monitor -Nephrology consulted, recs appreciated -Avoid nephrotoxins -Follow I/O (8) Atrial fibrillation ICD Codes: I48.91 - Atrial fibrillation Status: Chronic Plan: -Start digoxin daily -Amiodarone infusion -Xarelto 20mg PO daily (9) Hypertension ICD Codes: I10 - Hypertension Status: Chronic Plan: -Continue home meds: Coreg 6.25 mg PO q12 Losartan 50mg PO daily (10) Neurogenic bladder ICD Codes: N31.9 - Neuromuscular dysfunction of bladder, unspecified Plan: Neurogenic bladder due to stroke -Conde catheter placed (11) Hyperlipidemia ICD Codes: E78.5 - Hyperlipidemia Status: Chronic Plan: -Continue Atorvastatin 40mg PO HS (12) Hypothyroidism ICD Codes: E03.9 - Hypothyroidism, unspecified Status: Chronic Plan: -Continue Levothyroxine 112mcg PO daily (13) Diabetes ICD Codes: E11.9 - Diabetes Status: Chronic Plan: Blood sugar elevated to 400s. Added Levemir 15 on 06/14, increased to 25U q12H on 06/15 -Sliding scale insulin -Held home insulin (14) Nutrition, metabolism, and development symptoms ICD Codes: R63.8 - Other symptoms and signs concerning food and fluid intake Status: Acute Plan: Fluids: Free water q8H Diet: Tube feeds Electrolytes: monitor and replace as needed DVT ppx: SCDs See the residents documentation for details. I saw and evaluated the patient regarding the lr portions of this evaluation and agree with the residents findings and plans as written. While efforts were made to correct any mistakes made by this software, some mistakes, errors, and omissions may remain in the final note that were not caught when the note was originally created. (Lex Urias MD) Problem Qualifiers (1) Pneumonia: Qualified Codes: J15.212 - Pneumonia due to methicillin resistant Staphylococcus aureus (2) Congestive heart failure: Qualified Codes: I50.9 - Heart failure, unspecified (3) Atrial fibrillation: Qualified Codes: I48.2 - Chronic atrial fibrillation (4) Hypertension: Qualified Codes: I10 - Essential (primary) hypertension Ángel Pulido MD, R2 Jun 16, 2017 10:07 Lex Urias MD Jun 17, 2017 13:01
[2017-06-16 11:35] LABS: HEMATOCRIT 23.6 % (39.0-51.0); HEMOGLOBIN 7.6 GM/DL (13.0-17.0); MEAN CELL VOLUME 84.1 FL (80.0-100.0); MEAN CORPUSCULAR HGB CONC 32.1 % (32.0-36.0); MEAN PLATELET VOLUME 8.5 FL (7.0-11.0); PLATELET COUNT 344 TH/MM3 (150-450); RED BLOOD COUNT 2.81 MIL/MM3 (4.50-5.90); RED CELL DISTRIBUTION WIDTH 18.4 % (11.6-17.2); WHITE BLOOD COUNT 12.3 TH/MM3 (4.0-11.0)
[2017-06-16 11:46] LABS: BICARBONATE 24.2 MEQ/L (21.0-32.0); CALCIUM 7.4 MG/DL (8.5-10.1); CREATININE 1.48 MG/DL (0.60-1.30); MAGNESIUM 1.9 MG/DL (1.5-2.5); PHOSPHORUS 2.4 MG/DL (2.5-4.9)
[2017-06-16 12:03] LABS: CALCIUM-PROTEIN CORRECTED 8.1 MG/DL (8.5-10.1); TOTAL PROTEIN 5.9 GM/DL (6.4-8.2)
--- NOTE | 2017-06-16 13:09 | HHI.HCPN ---
Reason for visit a. To assist with evaluation and management of symptoms including: dyspnea, debility, pain b. To assist medical decision maker(s) with: better understanding of current medical conditions; weighing benefits/burdens of medical treatment options; making medical treatment decisions. . Subjective/Interval History Follow up visit for symptom management and clarification of medical treatment goals. Patient remains intubated and sedated on mechanical ventilation. He continues to fail CPAP trail. He went into A fib with RVR this morning, started on amiodarone drip. Follow-up chest x-ray 06/16/2017 with diffuse consolidation likely related to edema/CHF which is unchanged from the prior image. BNP: 216 T-max overnight of 102.2 WBC of 12.3 Repeat sputum culture 06/07/17 + MRSA. On PO Zyvox for MRSA, Azethreonam was started for gram-negative coverage. Repeat sputum and blood cultures on 06/14/2017 remain negative to date. H/H of 6.1/18.8 on a.m. lab work. One unit PRBCs ordered and repeat CBC ordered to confirm. Repeat H/H of 7.6/23.6. No melena or rectal bleeding noted overnight. Endotracheal suction with pinkish/reddish sputum. Tolerating tube feedings with Glucerna 1.5 with goal rate 45 mL per hour. Total protein: 5.9, albumin 1.5. Having significant diarrhea, rectal tube was placed secondary to skin breakdown. C. difficile negative on 06/13/2017 Bilateral lower extremities with right great toe and fifth toe amputation. Skin is erythematous, dry with multiple ulcers that are covered in clean dry intact dressings. Patient has an unstageable DTI measuring 10.3cm x 13.1cm, wound bed is reportedly necrotic with mild odor. Wound care following. . Family/friend interactions Spoke with Deborah Hankins, court-appointed legal guardian, from [facility]. Patient remains critically ill with ongoing decline; his overall prognosis is poor and it is unlikely that he will survive this hospitalization. Discussed ongoing aggressive interventions vs. transitioning to comfort. Legal guardian verbalizing intention to compassionately withdraw artificial life support but has requested written documentation from the medical team regarding the patient's multiple life limiting medical conditions. Awaiting a written request from the court detailing what information they require from the medical team before proceeding further. . Advance Directives Advance Directive Specifics Documented care wishes: No documented care wishes are available at this time. . Significant change in goals: Likely withdrawal of artificial life support in the upcoming days. . Objective Vital Signs Date Time Temp Pulse Resp B/P (MAP) Pulse Ox O2 Delivery O2 Flow Rate FiO2 06/16/17 12:00 98.4 97 14 127/58 (81) 100 06/16/17 12:00 35 06/16/17 10:52 98 35 06/16/17 08:26 93 127/58 06/16/17 08:25 93 127/58 06/16/17 08:00 98.4 114 14 143/64 (90) 88 06/16/17 08:00 35 06/16/17 08:00 97 06/16/17 07:19 100 35 06/16/17 07:00 98.4 114 14 143/64 (90) 88 06/16/17 06:00 123 06/16/17 04:23 100 35 06/16/17 04:00 126 06/16/17 04:00 35 06/16/17 04:00 99.1 126 17 122/72 (89) 100 06/16/17 02:00 91 06/16/17 01:03 100 35 06/16/17 00:00 100.7 86 18 126/59 (81) 99 06/16/17 00:00 86 06/16/17 00:00 35 06/15/17 22:05 100 35 06/15/17 22:00 93 06/15/17 20:00 102.2 103 19 151/67 (95) 99 06/15/17 20:00 35 06/15/17 20:00 103 06/15/17 19:02 100 35 06/15/17 18:00 101 06/15/17 16:41 100 35 06/15/17 16:00 35 06/15/17 16:00 101 06/15/17 16:00 101.5 100 139/62 (87) 100 06/15/17 14:00 95 Intake & Output 06/16/17 06/16/17 07:00 19:00 Intake Total 2441 ml Output Total 825 ml Balance 1616 ml IV Total 1000 ml Tube Feeding 941 ml Tube Irrigant 500 ml Output Urine Total 525 ml Stool Total 300 ml . Physical Exam CONSTITUTIONAL/GENERAL: This is an adequately nourished patient, fragile appearing male patient who is intubated on mechanical ventilation. TUBES/LINES/DRAINS: PIV, CVL, Conde catheter, ETT, NGT, soft restraints, Giselle Shield, podus SKIN: Generalized pallor. Right great toe and fifth toe status post amputation. Multiple ulcers on BLE with drsgs dry and intact HEAD: Atraumatic. Normocephalic. EYES: Legally blind per previous notes. ENT: Orotracheally intubated. Mucous membranes dry. Nose without bleeding or purulent drainage. CARDIOVASCULAR: Atrial fibrillation with RVR on amiodarone infusion. No JVD. Peripheral pulses symmetrical RESPIRATORY/CHEST: Orotracheally intubated on mechanical ventilation, and kidneys to fail CPAP trials. Breath sounds diminished bilaterally, L > R. scattered rhonchi. GASTROINTESTINAL: Tolerating artificial nutrition at goal. Abdomen is firm, non-tender. Active bowel sounds 4 quadrants. + Diarrhea; C. difficile negative GENITOURINARY: Without palpable bladder distension. Urinary catheter in place. MUSCULOSKELETAL: Status post right great toe and fifth toe amputation. Small ulcers on bilateral anterior fleming. Non stageable pressure ulcer on bilateral sole, eschar left lateral foot. Bilateral lower extremities with atrophy LYMPHATICS: No palpable cervical or supraclavicular adenopathy. NEUROLOGICAL: Nonverbal; does not open eyes to verbal stimuli. Withdraws to pain. PSYCHIATRIC: Unable to assess due to patient's clinical condition . Diagnostic Tests Laboratory Laboratory Tests Test 06/14/17 03:36 06/15/17 03:45 06/15/17 04:00 06/16/17 04:34 White Blood Count 14.1 TH/MM3 (4.0-11.0) 18.8 TH/MM3 (4.0-11.0) TH/MM3 (4.0-11.0) Red Blood Count 3.26 MIL/MM3 (4.50-5.90) 2.87 MIL/MM3 (4.50-5.90) MIL/MM3 (4.50-5.90) Hemoglobin 8.6 GM/DL (13.0-17.0) 8.0 GM/DL (13.0-17.0) GM/DL (13.0-17.0) Hematocrit 27.1 % (39.0-51.0) 24.0 % (39.0-51.0) % (39.0-51.0) Mean Corpuscular Volume 83.1 FL (80.0-100.0) 83.4 FL (80.0-100.0) FL (80.0-100.0) Mean Corpuscular Hemoglobin 26.3 PG (27.0-34.0) 27.7 PG (27.0-34.0) PG (27.0-34.0) Mean Corpuscular Hemoglobin Concent 31.7 % (32.0-36.0) 33.2 % (32.0-36.0) % (32.0-36.0) Red Cell Distribution Width 18.6 % (11.6-17.2) 19.1 % (11.6-17.2) % (11.6-17.2) Platelet Count 457 TH/MM3 (150-450) 513 TH/MM3 (150-450) TH/MM3 (150-450) Mean Platelet Volume 8.7 FL (7.0-11.0) 9.3 FL (7.0-11.0) FL (7.0-11.0) Blood Urea Nitrogen 37 MG/DL (7-18) 46 MG/DL (7-18) Creatinine 1.44 MG/DL (0.60-1.30) 1.51 MG/DL (0.60-1.30) Random Glucose 368 MG/DL (74-106) 417 MG/DL (74-106) Calcium Level 7.7 MG/DL (8.5-10.1) 7.5 MG/DL (8.5-10.1) Sodium Level 142 MEQ/L (136-145) 142 MEQ/L (136-145) Potassium Level 3.7 MEQ/L (3.5-5.1) 3.9 MEQ/L (3.5-5.1) Chloride Level 105 MEQ/L (98-107) 106 MEQ/L (98-107) Carbon Dioxide Level 28.1 MEQ/L (21.0-32.0) 29.3 MEQ/L (21.0-32.0) Anion Gap 9 MEQ/L (5-15) 7 MEQ/L (5-15) Estimat Glomerular Filtration Rate 49 ML/MIN (>89) 46 ML/MIN (>89) Urine Color YELLOW (YELLW/STRAW) Urine Turbidity CLEAR (CLEAR) Urine pH 5.0 (5.0-8.5) Urine Specific [place] 1.014 (1.002-1.035) Urine Protein NEG mg/dL (NEG-TRACE) Urine Glucose (UA) 150 mg/dL (NEG) Urine Ketones NEG mg/dL (NEG) Urine Occult Blood NEG (NEG) Urine Nitrite NEG (NEG) Urine Bilirubin NEG (NEG) Urine Urobilinogen LESS THAN 2.0 MG/DL (LESS Urine Leukocyte Esterase TRACE (NEG) Urine WBC 5 /hpf (0-5) Urine Squamous Epithelial Cells <1 /hpf (0-5) Urine Mucus FEW /lpf (OCC) Microscopic Urinalysis Comment CATH-CULT NOT IND Test 06/16/17 10:36 White Blood Count 12.3 TH/MM3 (4.0-11.0) Red Blood Count 2.81 MIL/MM3 (4.50-5.90) Hemoglobin 7.6 GM/DL (13.0-17.0) Hematocrit 23.6 % (39.0-51.0) Mean Corpuscular Volume 84.1 FL (80.0-100.0) Mean Corpuscular Hemoglobin 27.0 PG (27.0-34.0) Mean Corpuscular Hemoglobin Concent 32.1 % (32.0-36.0) Red Cell Distribution Width 18.4 % (11.6-17.2) Platelet Count 344 TH/MM3 (150-450) Mean Platelet Volume 8.5 FL (7.0-11.0) Blood Urea Nitrogen 52 MG/DL (7-18) Creatinine 1.48 MG/DL (0.60-1.30) Random Glucose 315 MG/DL (74-106) Total Protein 5.9 GM/DL (6.4-8.2) Calcium Level 7.4 MG/DL (8.5-10.1) Phosphorus Level 2.4 MG/DL (2.5-4.9) Magnesium Level 1.9 MG/DL (1.5-2.5) Sodium Level 143 MEQ/L (136-145) Potassium Level 3.6 MEQ/L (3.5-5.1) Chloride Level 109 MEQ/L (98-107) Carbon Dioxide Level 24.2 MEQ/L (21.0-32.0) Anion Gap 10 MEQ/L (5-15) Estimat Glomerular Filtration Rate 47 ML/MIN (>89) Protein Corrected Calcium 8.1 MG/DL (8.5-10.1) B-Type Natriuretic Peptide 216 PG/ML (0-100) . Result Diagram: 06/16/17 1036 06/16/17 1036 Microbiology Microbiology Date/Time Source Procedure Growth Status 06/14/17 12:45 Blood Peripheral Aerobic Blood Culture - Preliminary NO GROWTH IN 2 DAYS Resulted 06/14/17 12:45 Blood Peripheral Anaerobic Blood Culture - Preliminary NO GROWTH IN 2 DAYS Resulted 06/14/17 12:40 Blood Peripheral Aerobic Blood Culture - Preliminary NO GROWTH IN 2 DAYS Resulted 06/14/17 12:40 Blood Peripheral Anaerobic Blood Culture - Preliminary NO GROWTH IN 2 DAYS Resulted 06/14/17 10:25 Sputum Endotracheal Gram Stain - Final Complete 06/14/17 10:25 Sputum Endotracheal Sputum Culture - Final NO GROWTH IN 48 HOURS. Complete . Imaging Last 72 hours Impressions Chest X-Ray 06/16/17 0000 Signed Impressions: Service Date/Time: Friday, June 16, 2017 08:06 - CONCLUSION: Diffuse consolidation likely related to edema/CHF. This is unchanged from the prior exam. Ap Quigley MD . Procedures 06/04/2017: PEA arrest with CPR 06/04/2017: Intubation 06/04/2017: Right femur all arterial line placement 06/04/2017: Right subclavian central line placement 06/04/2017: NGT 06/05/2017: Extubation. 06/06/2017: Reintubation . Assessment and Plan Disease Oriented Problem List: (1) GERD (gastroesophageal reflux disease) (2) Mood disorder (3) COPD (chronic obstructive pulmonary disease) (4) Respiratory failure (5) CAD (coronary artery disease) (6) Chronic kidney disease, stage 3 (7) Atrial fibrillation (8) Hypertension (9) Diabetes (10) Hypothyroidism (11) S/P CABG x 3 Symptom Scale: (1) Dyspnea 0-10 Scale: Unable to quantify (2) Debility 0-10 Scale: Unable to quantify (3) Pain 0-10 Scale: Unable to quantify Pertinent Non-Medical Issues Psychosocial: Jensen was born in [place]. Jensen has 4 half siblings (2 of which currently live in [facility]. Jensen was raised by his Aunt. 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 Per previous note, his cousin (Krista) described him as a person that is "difficult to get along with" and strong willed. Jensen enjoys watching sports; including the Yankees and Giants. Jensen also has loved records and eating sweets. Patient is a LTC resident of [facility] and will return there at discharge. Spiritual: [facility] Legal: Court appointed legal guardian as of 10/03/2015 - [facility] Deborah Hankins: [phone] (1st contact). Fernanda Bryant: [phone] Ethical issues impacting care: No known ethical issues impacting care at this time. . Important Contacts Public guardianship - [facility]. Deborah Hankins: [phone] (1st contact) Fernanda Bryant: [phone] . Prognosis Patient with significant debility. [facility] is a [facility] who has been hospitalized 4 times in the past 4 months. He has multiple comorbid conditions including his recent MCA stroke, MRSA pneumonia, recurrent respiratory failure and cardiomyopathy with an EF of 25%. He remains encephalopathic status post PEA arrest with possible anoxic brain injury. Given patient's advanced age, complex medical history and baseline debility, he is at high risk for continued decline, complications and rehospitalizations. . Code Status: No Code Plan * NO CODE * [facility] DNR completed 06/09/2017. * Decision-making: Patient does not have insight or judgment related to his medical conditions; he is not capacitated to participate in establishment of medical treatment goals nor will he regain capacity. Court appointed legal guardian as of 10/03/2015 - [employer] Deborah Hankins: [phone] (1st contact). Fernanda Bryant: [phone] * Discussed patient with nurse (Fernanda) and Dr. Deluca. Spoke with Deborah Hankins from [facility]. * Goals remain aggressive up to the point of cardiopulmonary resuscitation. * Spoke with Deborah Hankins, court-appointed legal guardian, from [facility]. Patient remains critically ill with ongoing decline; his overall prognosis is poor and it is unlikely that he will survive this hospitalization. Discussed ongoing aggressive interventions vs. transitioning to comfort. Legal guardian verbalizing intention to compassionately withdraw artificial life support but has requested written documentation from the medical team regarding the patient's multiple life limiting medical conditions. Awaiting a written request from the court detailing what information they require from the medical team before proceeding further. * Symptom management-debility: Patient is a resident of [facility] with plan to discharge back to previous setting. Per legal guardian, patient was maximum assist 2 to transfer from bed to wheelchair prior to hospitalization. He was able to self propel his wheelchair using his feet. * Symptom management-dyspnea: Patient was reintubated 06/05/2017. Sputum culture on 06/04/2017 growing MRSA and Escherichia coli; follow-up sputum culture on 06/07/2017 growing MRSA. Possibly aspiration pneumonia. 06/13/2017: Patient remains intubated and sedated on mechanical ventilation, continues to fail CPAP trials. Follow-up chest x-ray 06/16/2017 with diffuse consolidation likely related to edema/CHF which is unchanged from the prior image. BNP: 216 * Symptom management-pain: Patient is currently sedated, showing no nonverbal signs of distress. Per nursing report, patient has a large ulcer on his buttocks with necrosis. PRN morphine is available; patient receiving acetaminophen for elevated temperature which may assist with pain management. Additional factors potentially contributing to patient's pain include impaired skin integrity, impaired circulation, ETT, invasive lines, bedbound status and immobility. Continue to monitor for nonverbal signs/symptoms of pain and adjust medications as indicated. . Attestation To help prompt me to consider important information that might be impacting today's encounter and assessment, information from prior notes written by myself or my colleagues may have been "brought forward" into today's note. My signature on this note, however, is an attestation that I personally performed the exam, history, and/or decision-making noted today, and, unless otherwise indicated, the interactions with patient, family, and staff as well as the review of records all occurred today. I also attest that the listed assessment and stated plan reflect my best clinical judgment today based on the combination of historical information, prior notes, and today's exam/ interactions. When time spent is documented, it refers only to time spent today by the signer, or if indicated, combined time spent today by collaborating physician/nurse practitioner. . Maria Antonia Whiting Jun 16, 2017 13:09
--- NOTE | 2017-06-16 13:40 | HHI.HCPN ---
Reason for visit a. To assist with evaluation and management of symptoms including: dyspnea, debility, pain b. To assist medical decision maker(s) with: better understanding of current medical conditions; weighing benefits/burdens of medical treatment options; making medical treatment decisions. . (Maria Antonia Whiting) Subjective/Interval History Follow up visit for symptom management and clarification of medical treatment goals. Patient remains intubated and sedated on mechanical ventilation. He continues to fail CPAP trail. He went into A fib with RVR this morning, started on amiodarone drip. Follow-up chest x-ray 06/16/2017 with diffuse consolidation likely related to edema/CHF which is unchanged from the prior image. BNP: 216 T-max overnight of 102.2 WBC of 12.3 Repeat sputum culture 06/07/17 + MRSA. On PO Zyvox for MRSA, Azethreonam was started for gram-negative coverage. Repeat sputum and blood cultures on 06/14/2017 remain negative to date. H/H of 6.1/18.8 on a.m. lab work. One unit PRBCs ordered and repeat CBC ordered to confirm. Repeat H/H of 7.6/23.6. No melena or rectal bleeding noted overnight. Endotracheal suction with pinkish/reddish sputum. Tolerating tube feedings with Glucerna 1.5 with goal rate 45 mL per hour. Total protein: 5.9, albumin 1.5. Having significant diarrhea, rectal tube was placed secondary to skin breakdown. C. difficile negative on 06/13/2017 Bilateral lower extremities with right great toe and fifth toe amputation. Skin is erythematous, dry with multiple ulcers that are covered in clean dry intact dressings. Patient has an unstageable DTI measuring 10.3cm x 13.1cm, wound bed is reportedly necrotic with mild odor. Wound care following. . (Maria Antonia Whiting) Advance Directives Advance Directive Specifics Documented care wishes: No documented care wishes are available at this time. . (Maria Antonia Whiting) Objective Vital Signs Date Time Temp Pulse Resp B/P (MAP) Pulse Ox O2 Delivery O2 Flow Rate FiO2 06/16/17 12:00 98.4 97 14 127/58 (81) 100 06/16/17 12:00 35 06/16/17 10:52 98 35 1/1/18 08:26 93 127/58 06/16/17 08:25 93 127/58 06/16/17 08:00 98.4 114 14 143/64 (90) 88 06/16/17 08:00 35 06/16/17 08:00 97 06/16/17 07:19 100 35 06/16/17 07:00 98.4 114 14 143/64 (90) 88 06/16/17 06:00 123 06/16/17 04:23 100 35 06/16/17 04:00 126 06/16/17 04:00 35 06/16/17 04:00 99.1 126 17 122/72 (89) 100 06/16/17 02:00 91 06/16/17 01:03 100 35 06/16/17 00:00 100.7 86 18 126/59 (81) 99 06/16/17 00:00 86 06/16/17 00:00 35 06/15/17 22:05 100 35 06/15/17 22:00 93 06/15/17 20:00 102.2 103 19 151/67 (95) 99 06/15/17 20:00 35 06/15/17 20:00 103 06/15/17 19:02 100 35 06/15/17 18:00 101 06/15/17 16:41 100 35 06/15/17 16:00 35 06/15/17 16:00 101 06/15/17 16:00 101.5 100 139/62 (87) 100 06/15/17 14:00 95 Intake & Output 06/16/17 06/16/17 07:00 19:00 Intake Total 2441 ml Output Total 825 ml Balance 1616 ml IV Total 1000 ml Tube Feeding 941 ml Tube Irrigant 500 ml Output Urine Total 525 ml Stool Total 300 ml Physical Exam CONSTITUTIONAL/GENERAL: This is an adequately nourished patient, fragile appearing male patient who is intubated on mechanical ventilation. TUBES/LINES/DRAINS: PIV, CVL, Conde catheter, ETT, NGT, soft restraints, Giselle Shield, podus SKIN: Generalized pallor. Right great toe and fifth toe status post amputation. Multiple ulcers on BLE with drsgs dry and intact HEAD: Atraumatic. Normocephalic. EYES: Legally blind per previous notes. ENT: Orotracheally intubated. Mucous membranes dry. Nose without bleeding or purulent drainage. CARDIOVASCULAR: Atrial fibrillation with RVR on amiodarone infusion. No JVD. Peripheral pulses symmetrical RESPIRATORY/CHEST: Orotracheally intubated on mechanical ventilation, and kidneys to fail CPAP trials. Breath sounds diminished bilaterally, L > R. scattered rhonchi. GASTROINTESTINAL: Tolerating artificial nutrition at goal. Abdomen is firm, non-tender. Active bowel sounds 4 quadrants. + Diarrhea; C. difficile negative GENITOURINARY: Without palpable bladder distension. Urinary catheter in place. MUSCULOSKELETAL: Status post right great toe and fifth toe amputation. Small ulcers on bilateral anterior fleming. Non stageable pressure ulcer on bilateral sole, eschar left lateral foot. Bilateral lower extremities with atrophy LYMPHATICS: No palpable cervical or supraclavicular adenopathy. NEUROLOGICAL: Nonverbal; does not open eyes to verbal stimuli. Withdraws to pain. PSYCHIATRIC: Unable to assess due to patient's clinical condition . (Maria Antonia Whiting) Diagnostic Tests Laboratory Laboratory Tests Test 06/14/17 03:36 06/15/17 03:45 06/15/17 04:00 06/16/17 04:34 White Blood Count 14.1 TH/MM3 (4.0-11.0) 18.8 TH/MM3 (4.0-11.0) TH/MM3 (4.0-11.0) Red Blood Count 3.26 MIL/MM3 (4.50-5.90) 2.87 MIL/MM3 (4.50-5.90) MIL/MM3 (4.50-5.90) Hemoglobin 8.6 GM/DL (13.0-17.0) 8.0 GM/DL (13.0-17.0) GM/DL (13.0-17.0) Hematocrit 27.1 % (39.0-51.0) 24.0 % (39.0-51.0) % (39.0-51.0) Mean Corpuscular Volume 83.1 FL (80.0-100.0) 83.4 FL (80.0-100.0) FL (80.0-100.0) Mean Corpuscular Hemoglobin 26.3 PG (27.0-34.0) 27.7 PG (27.0-34.0) PG (27.0-34.0) Mean Corpuscular Hemoglobin Concent 31.7 % (32.0-36.0) 33.2 % (32.0-36.0) % (32.0-36.0) Red Cell Distribution Width 18.6 % (11.6-17.2) 19.1 % (11.6-17.2) % (11.6-17.2) Platelet Count 457 TH/MM3 (150-450) 513 TH/MM3 (150-450) TH/MM3 (150-450) Mean Platelet Volume 8.7 FL (7.0-11.0) 9.3 FL (7.0-11.0) FL (7.0-11.0) Blood Urea Nitrogen 37 MG/DL (7-18) 46 MG/DL (7-18) Creatinine 1.44 MG/DL (0.60-1.30) 1.51 MG/DL (0.60-1.30) Random Glucose 368 MG/DL (74-106) 417 MG/DL (74-106) Calcium Level 7.7 MG/DL (8.5-10.1) 7.5 MG/DL (8.5-10.1) Sodium Level 142 MEQ/L (136-145) 142 MEQ/L (136-145) Potassium Level 3.7 MEQ/L (3.5-5.1) 3.9 MEQ/L (3.5-5.1) Chloride Level 105 MEQ/L (98-107) 106 MEQ/L (98-107) Carbon Dioxide Level 28.1 MEQ/L (21.0-32.0) 29.3 MEQ/L (21.0-32.0) Anion Gap 9 MEQ/L (5-15) 7 MEQ/L (5-15) Estimat Glomerular Filtration Rate 49 ML/MIN (>89) 46 ML/MIN (>89) Urine Color YELLOW (YELLW/STRAW) Urine Turbidity CLEAR (CLEAR) Urine pH 5.0 (5.0-8.5) Urine Specific Rover 1.014 (1.002-1.035) Urine Protein NEG mg/dL (NEG-TRACE) Urine Glucose (UA) 150 mg/dL (NEG) Urine Ketones NEG mg/dL (NEG) Urine Occult Blood NEG (NEG) Urine Nitrite NEG (NEG) Urine Bilirubin NEG (NEG) Urine Urobilinogen LESS THAN 2.0 MG/DL (LESS Urine Leukocyte Esterase TRACE (NEG) Urine WBC 5 /hpf (0-5) Urine Squamous Epithelial Cells <1 /hpf (0-5) Urine Mucus FEW /lpf (OCC) Microscopic Urinalysis Comment CATH-CULT NOT IND Test 06/16/17 10:36 White Blood Count 12.3 TH/MM3 (4.0-11.0) Red Blood Count 2.81 MIL/MM3 (4.50-5.90) Hemoglobin 7.6 GM/DL (13.0-17.0) Hematocrit 23.6 % (39.0-51.0) Mean Corpuscular Volume 84.1 FL (80.0-100.0) Mean Corpuscular Hemoglobin 27.0 PG (27.0-34.0) Mean Corpuscular Hemoglobin Concent 32.1 % (32.0-36.0) Red Cell Distribution Width 18.4 % (11.6-17.2) Platelet Count 344 TH/MM3 (150-450) Mean Platelet Volume 8.5 FL (7.0-11.0) Blood Urea Nitrogen 52 MG/DL (7-18) Creatinine 1.48 MG/DL (0.60-1.30) Random Glucose 315 MG/DL (74-106) Total Protein 5.9 GM/DL (6.4-8.2) Calcium Level 7.4 MG/DL (8.5-10.1) Phosphorus Level 2.4 MG/DL (2.5-4.9) Magnesium Level 1.9 MG/DL (1.5-2.5) Sodium Level 143 MEQ/L (136-145) Potassium Level 3.6 MEQ/L (3.5-5.1) Chloride Level 109 MEQ/L (98-107) Carbon Dioxide Level 24.2 MEQ/L (21.0-32.0) Anion Gap 10 MEQ/L (5-15) Estimat Glomerular Filtration Rate 47 ML/MIN (>89) Protein Corrected Calcium 8.1 MG/DL (8.5-10.1) B-Type Natriuretic Peptide 216 PG/ML (0-100) (Maria Antonia Whiting) Result Diagram: 06/16/17 1036 06/16/17 1036 Microbiology Microbiology Date/Time Source Procedure Growth Status 06/14/17 12:45 Blood Peripheral Aerobic Blood Culture - Preliminary NO GROWTH IN 2 DAYS Resulted 06/14/17 12:45 Blood Peripheral Anaerobic Blood Culture - Preliminary NO GROWTH IN 2 DAYS Resulted 06/14/17 12:40 Blood Peripheral Aerobic Blood Culture - Preliminary NO GROWTH IN 2 DAYS Resulted 06/14/17 12:40 Blood Peripheral Anaerobic Blood Culture - Preliminary NO GROWTH IN 2 DAYS Resulted 06/14/17 10:25 Sputum Endotracheal Gram Stain - Final Complete 06/14/17 10:25 Sputum Endotracheal Sputum Culture - Final NO GROWTH IN 48 HOURS. Complete Procedures 06/04/2017: PEA arrest with CPR 06/04/2017: Intubation 06/04/2017: Right femur all arterial line placement 06/04/2017: Right subclavian central line placement 06/04/2017: NGT 06/05/2017: Extubation. 06/06/2017: Reintubation . (Maria Antonia Whiting) Assessment and Plan Disease Oriented Problem List: (1) GERD (gastroesophageal reflux disease) (2) Mood disorder (3) COPD (chronic obstructive pulmonary disease) (4) Respiratory failure (5) CAD (coronary artery disease) (6) Chronic kidney disease, stage 3 (7) Atrial fibrillation (8) Hypertension (9) Diabetes (10) Hypothyroidism (11) S/P CABG x 3 Symptom Scale: (1) Dyspnea 0-10 Scale: Unable to quantify (2) Debility 0-10 Scale: Unable to quantify (3) Pain 0-10 Scale: Unable to quantify Pertinent Non-Medical Issues Psychosocial: Jensen was born in [place]. Jensen has 4 half siblings (2 of which currently live in [place]). Jensen was raised by his Aunt. 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 Per previous note, his cousin (Krista) described him as a person that is "difficult to get along with" and strong willed. Jensen enjoys watching sports; including the Yankees and Giants. Jensen also has loved records and eating sweets. Patient is a LTC resident of [facility] and will return there at discharge. Spiritual: [employer] Legal: Court appointed legal guardian as of 10/03/2015 - [facility] Deborah Hankins: [phone] (1st contact). Fernanda Bryant: [phone] Ethical issues impacting care: No known ethical issues impacting care at this time. . Important Contacts Public guardianship - [employer] Electrician on [facility] of [facility]. Deborah Pazworth: [phone] (1st contact) Fernanda Bryant: [phone] . Prognosis Patient with significant debility. He is a long-term [facility] resident who has been hospitalized 4 times in the past 4 months. He has multiple comorbid conditions including his recent MCA stroke, MRSA pneumonia, recurrent respiratory failure and cardiomyopathy with an EF of 25%. He remains encephalopathic status post PEA arrest with possible anoxic brain injury. Given patient's advanced age, complex medical history and baseline debility, he is at high risk for continued decline, complications and rehospitalizations. . Code Status: No Code Plan * NO CODE * [facility] completed 06/09/2017. * Decision-making: Patient does not have insight or judgment related to his medical conditions; he is not capacitated to participate in establishment of medical treatment goals nor will he regain capacity. Court appointed legal guardian as of 10/03/2015 - [facility] Deborah Hankins: [phone] (1st contact). Fernanda Bryant: [phone] * Discussed patient with nurse (Fernanda) and Dr. Deluca. Spoke with Deborah Hankins from [facility]. * Goals remain aggressive up to the point of cardiopulmonary resuscitation. * Spoke with Deborah Hankins, court-appointed legal guardian, from [place] [facility]. Patient remains critically ill with ongoing decline; his overall prognosis is poor and it is unlikely that he will survive this hospitalization. Discussed ongoing aggressive interventions vs. transitioning to comfort. Legal guardian verbalizing intention to compassionately withdraw artificial life support but has requested written documentation from the medical team regarding the patient's multiple life limiting medical conditions. Awaiting a written request from the court detailing what information they require from the medical team before proceeding further. * Symptom management-debility: Patient is a resident of [facility] with plan to discharge back to previous setting. Per legal guardian, patient was maximum assist 2 to transfer from bed to wheelchair prior to hospitalization. He was able to self propel his wheelchair using his feet. * Symptom management-dyspnea: Patient was reintubated 06/05/2017. Sputum culture on 06/04/2017 growing MRSA and Escherichia coli; follow-up sputum culture on 06/07/2017 growing MRSA. Possibly aspiration pneumonia. 06/13/2017: Patient remains intubated and sedated on mechanical ventilation, continues to fail CPAP trials. Follow-up chest x-ray 06/16/2017 with diffuse consolidation likely related to edema/CHF which is unchanged from the prior image. BNP: 216 * Symptom management-pain: Patient is currently sedated, showing no nonverbal signs of distress. Per nursing report, patient has a large ulcer on his buttocks with necrosis. PRN morphine is available; patient receiving acetaminophen for elevated temperature which may assist with pain management. Additional factors potentially contributing to patient's pain include impaired skin integrity, impaired circulation, ETT, invasive lines, bedbound status and immobility. Continue to monitor for nonverbal signs/symptoms of pain and adjust medications as indicated. . (Maria Antonia Whiting) Collaborating MD Comments Chart reviewed. Case discussed with palliative care [employer] TECHNICIAN. Above [employer] PR[employer] TECHNICIAN note reviewed and I concur. . (Aurelio Walker MD) Maria Antonia Whiting Jun 16, 2017 13:40 Aureilo Walker MD Jun 24, 2017 14:36
--- NOTE | 2017-06-16 15:50 | HHI.NPPN ---
Subjective General Problems: Anemia, Edema, Hypertension Renal Failure: Chronic, Acute, Stage III History of Present Illness 67-year-old male with a past medical history of ischemic heart disease, congestive heart failure, chronic kidney disease, atrial fibrillation, chronic anemia, diabetes mellitus, hypothyroidism, and peripheral vascular disease who was admitted with a complaint of worsening shortness of breath. I was called to see the patient because of elevated BUN and creatinine. The patient has known history of chronic kidney disease and his baseline creatinine seems to be in the range of 1.3-1.5 most of the time. Additional Remarks Problems include CKD, hypoxic encephalopathy, s/p PEA arrest, s/p CVA, respiratory failure. Creatinine is slightly higher again today. On Lasix IV Q 8 hours. He has significant stool output. C.diff negative. Objective Data Data 06/16/17 06/17/17 19:00 07:00 Intake Total 103 ml Balance 103 ml IV Total 103 ml Vital Signs Date Time Temp Pulse Resp B/P (MAP) Pulse Ox O2 Delivery O2 Flow Rate FiO2 06/16/17 15:16 98 35 06/16/17 14:24 78 125/60 06/16/17 14:00 77 06/16/17 12:00 81 06/16/17 12:00 98.4 97 14 127/58 (81) 100 06/16/17 12:00 35 06/16/17 10:52 98 35 06/16/17 10:00 86 06/16/17 08:26 93 127/58 06/16/17 08:25 93 127/58 06/16/17 08:00 98.4 114 14 143/64 (90) 88 06/16/17 08:00 35 06/16/17 08:00 97 06/16/17 07:19 100 35 06/16/17 07:00 98.4 114 14 143/64 (90) 88 06/16/17 06:00 123 06/16/17 04:23 100 35 06/16/17 04:00 126 06/16/17 04:00 35 06/16/17 04:00 99.1 126 17 122/72 (89) 100 06/16/17 02:00 91 06/16/17 01:03 100 35 06/16/17 00:00 100.7 86 18 126/59 (81) 99 06/16/17 00:00 86 06/16/17 00:00 35 06/15/17 22:05 100 35 06/15/17 22:00 93 06/15/17 20:00 102.2 103 19 151/67 (95) 99 06/15/17 20:00 35 06/15/17 20:00 103 06/15/17 19:02 100 35 06/15/17 18:00 101 06/15/17 16:41 100 35 06/15/17 16:00 35 06/15/17 16:00 101 06/15/17 16:00 101.5 100 139/62 (87) 100 -: 06/16/17 1036 06/16/17 1036 Physical Exam Eyes Eye Exam: Pupils Equal Throat Throat Exam: Oral Mucosa Pottery [place] & Moist Neck Neck Exam: Neck Supple Pulmonary Resp Exam: Breath Sounds Equal, No Distress, Rhonchi, Decreased Bases Cardiology CV Exam: Regular, Normal Sinus Rhythm Gastrointestinal/Abdomen GI Exam: Soft, Non-Tender, Bowel Sounds Present Extremeties Extremities Exam: Trace Edema (Bilateral scalling and dryness of skin, in lower leg.) Neurologic Neuro Exam: Sedated Assessment/Plan Assessment Summary: KATERIN/Acute Renal Failure, Hypertension, CKD Stage III Problem List: (1) Acute kidney injury ICD Codes: N17.9 - Acute kidney failure, unspecified (2) Altered mental status ICD Codes: R41.82 - Altered mental status Status: Acute (3) Hx of deep venous thrombosis ICD Codes: Z86.718 - History of deep venous thrombosis Status: Chronic (4) CHF (congestive heart failure) ICD Codes: I50.9 - Congestive heart failure Status: Resolved (5) Diabetes ICD Codes: E11.9 - Diabetes Status: Chronic (6) Hypothyroidism ICD Codes: E03.9 - Hypothyroidism, unspecified Status: Chronic (7) Hypertension ICD Codes: I10 - Hypertension Status: Chronic (8) Chronic kidney disease, stage 3 ICD Codes: N18.3 - Chronic kidney disease, stage 3 (moderate) (9) Rhabdomyolysis ICD Codes: M62.82 - Rhabdomyolysis Plan Patient has been non oliguric. Has chronic kidney disease with baseline Creatinine 1.3-1.5. Most likely has chronic kidney disease due to Hypertensive or renovascular disease. Renal function is slightly worse, however, GFR may be near baseline. On Lasix 40 mg IV Q 8 hours. Avoid nephrotoxins. Prognosis is very poor. continue supportive care replace KPO4 Problem Qualifiers (1) Hypertension: Qualified Codes: I10 - Essential (primary) hypertension Maricarmen Rivas MD Jun 16, 2017 15:50
[2017-06-16] MEDS ORDERED: POTASSIUM PHOSPHATE INJ 15 MMOL in SODIUM CHLORIDE 0.9% INJ 150 ML IV ONE (16:00)
--- NOTE | 2017-06-16 17:00 | HHI.IDPN ---
Note Infectious Disease Note ID COVERAGE for DR. Bello. Patient on the vent. Temp lower. Febrile yesterday. WBC lower. Sedated. Noted to have large ulcer on the back. Discussed with RN. Antibiotics Linezolid. Aztreonam. Fluconazole. Allergies: Coded Allergies: Iodinated Contrast- Oral and IV Dye (Verified Allergy, Severe, Anaphylaxis , 05/29/17) acetaminophen (Unverified Allergy, Severe, "LIVER PROBLEMS", 05/29/17) diatrizoate meglumine (Unverified Allergy, Severe, Anaphylaxis, 05/29/17) gadobenic acid (Unverified Allergy, Severe, Anaphylaxis, 05/29/17) gadodiamide (Unverified Allergy, Severe, Anaphylaxis, 05/29/17) gadoteridol (Unverified Allergy, Severe, Anaphylaxis, 05/29/17) iodixanol (Unverified Allergy, Severe, Anaphylaxis, 05/29/17) iohexol (Unverified Allergy, Severe, Anaphylaxis, 05/29/17) penicillin G (Unverified Allergy, Severe, "HOT THROAT", 05/29/17) Uncoded Allergies: RADIOISOTOPES (Allergy, Severe, 09/27/13) UNKONWN RXN, LISTED ON PATIENT PAPERWORK FROM [facility]. OBJECTIVE; Current Medications Medications (Trade) Dose Ordered Sig/Gucci Route PRN Reason Start Time Stop Time Status Last Admin Dose Admin Sodium Chloride (NS Flush) 2 ml UNSCH PRN IV FLUSH FLUSH AFTER USING IV ACCESS 05/29/17 16:00 06/09/17 20:16 Sodium Chloride (NS Flush) 2 ml BID IV FLUSH 05/29/17 21:00 06/16/17 09:00 Ondansetron HCl (Zofran Inj) 4 mg Q6H PRN IVP NAUSEA OR VOMITING 05/29/17 16:00 Senna/Docusate Sodium (Kimberly-Colace) 1 tab BID PO 05/29/17 21:00 06/16/17 08:54 Albuterol Sulfate (Albuterol Neb) 2.5 mg Q2HR NEB PRN NEB SHORTNESS OF BREATH 05/29/17 16:15 Alprazolam (Xanax) 0.25 mg Q6H PRN PO ANXIETY 05/29/17 16:15 06/05/17 21:40 Atorvastatin Calcium (Lipitor) 40 mg HS PO 05/29/17 21:00 06/15/17 20:55 Carbamide Peroxide (Debrox 6.5% Otic) 5 drop DAILY EACH EAR 05/30/17 09:00 06/16/17 08:53 Hydroxyzine HCl (Atarax) 25 mg Q6H PRN PO ITCHING 05/29/17 16:15 Future Hold Prednisolone Acetate (Pred Forte 1% Opth Susp) 1 drop BID RIGHT EYE 05/29/17 21:00 06/16/17 08:57 Levothyroxine Sodium (Synthroid) 112 mcg DAILY@0600 PO 05/30/17 06:00 06/16/17 05:59 Levothyroxine Sodium (Synthroid) 25 mcg DAILY@0600 PO 05/30/17 06:00 06/16/17 05:57 Aspirin (Aspirin) 325 mg DAILY PO 06/01/17 09:00 06/16/17 08:54 Acetaminophen (Tylenol) 650 mg Q4H PRN PO TEMP > 100.4 05/31/17 12:45 06/16/17 02:34 Losartan Potassium (Cozaar) 50 mg DAILY PO 06/01/17 11:15 Future Hold 06/04/17 09:41 Chlorhexidine Gluconate (Peridex 0.12% Liq) 15 ml BID@08,20 MT 06/04/17 20:00 06/16/17 08:26 Terbutaline Sulfate (Brethine Inj) 1 mg UNSCH PRN SQ FOR EXTRAVASATION PROTOCOL 06/04/17 14:45 Morphine Sulfate (Morphine Inj) 2 mg Q3H PRN IV PUSH BREAKTHROUGH PAIN 06/06/17 11:00 06/09/17 00:36 Naloxone HCl (Narcan Inj) 0.4 mg UNSCH PRN IV PUSH SEE LABEL COMMENTS 06/06/17 10:30 Carvedilol (Coreg) 3.125 mg Q12HR PO 06/07/17 09:00 06/15/17 20:55 Albuterol/ Ipratropium (Duoneb Neb) 1 ampule Q2HR NEB PRN NEB SHORTNESS OF BREATH 06/07/17 07:45 Propofol 100 ml @ 2.484 mls/ hr TITRATE PRN IV SEDATION 06/07/17 07:45 06/16/17 12:26 Water (Free Water) 250 ml Q8HR G-TUBE 06/08/17 09:45 06/16/17 14:00 Linezolid (Zyvox) 600 mg Q12H PO 06/09/17 18:00 06/16/17 05:57 Rivaroxaban (Xarelto) 20 mg DAILY PO 06/10/17 09:00 Future Hold 06/15/17 08:45 Furosemide (Lasix Inj) 40 mg Q8H IV PUSH 06/12/17 09:00 06/16/17 16:42 Famotidine (Pepcid Liq) 40 mg BID NG 06/12/17 09:00 06/16/17 08:56 Aztreonam 1000 mg/ Sodium Chloride 100 ml @ 200 mls/hr Q8H IV 06/12/17 17:00 06/16/17 16:41 Guar Gum (Nutrisource Fiber Powder) 2 pack BID G-TUBE 06/13/17 09:00 06/16/17 08:53 Dextrose (D50w (Vial) Inj) 25 ml UNSCH PRN IV PUSH HYPOGLYCEMIA-SEE COMMENTS 06/13/17 06:30 Metronidazole 100 ml @ 100 mls/hr Q6H IV 06/13/17 08:00 06/16/17 14:38 Fluconazole (Diflucan) 100 mg DAILY PO 06/14/17 10:00 06/16/17 08:54 Insulin Human Regular (NovoLIN R SUPPLEMENTAL SCALE) 1 Q4HR SQ 06/15/17 12:00 06/16/17 16:00 Insulin Detemir (Levemir Inj) 25 units Q12HR SQ 06/15/17 21:00 06/16/17 08:57 Digoxin (Lanoxin) 0.125 mg DAILY PO 06/16/17 09:00 06/16/17 08:54 Amiodarone HCl 450 mg/Sodium Chloride 250 ml @ 33.33 mls/ hr Q7H31M PRN IV Per Protocol 06/16/17 07:00 06/16/17 14:24 Potassium Phosphate 15 mmol/ Sodium Chloride 155 ml @ 38.75 mls/ hr ONCE ONCE IV 06/16/17 16:00 06/16/17 19:59 06/16/17 16:43 OBJECTIVE: Vital Signs Date Time Temp Pulse Resp B/P (MAP) Pulse Ox O2 Delivery O2 Flow Rate FiO2 06/16/17 16:00 35 06/16/17 15:16 98 35 06/16/17 14:24 78 125/60 06/16/17 14:00 77 06/16/17 12:00 81 06/16/17 12:00 98.4 97 14 127/58 (81) 100 06/16/17 12:00 35 06/16/17 10:52 98 35 06/16/17 10:00 86 06/16/17 08:26 93 127/58 06/16/17 08:25 93 127/58 06/16/17 08:00 98.4 114 14 143/64 (90) 88 06/16/17 08:00 35 06/16/17 08:00 97 06/16/17 07:19 100 35 06/16/17 07:00 98.4 114 14 143/64 (90) 88 06/16/17 06:00 123 06/16/17 04:23 100 35 06/16/17 04:00 126 06/16/17 04:00 35 06/16/17 04:00 99.1 126 17 122/72 (89) 100 06/16/17 02:00 91 06/16/17 01:03 100 35 06/16/17 00:00 100.7 86 18 126/59 (81) 99 06/16/17 00:00 86 06/16/17 00:00 35 06/15/17 22:05 100 35 06/15/17 22:00 93 06/15/17 20:00 102.2 103 19 151/67 (95) 99 06/15/17 20:00 35 06/15/17 20:00 103 06/15/17 19:02 100 35 06/15/17 18:00 101 Laboratory Tests Test 06/15/17 03:45 06/16/17 04:34 06/16/17 10:36 White Blood Count 18.8 TH/MM3 TH/MM3 12.3 TH/MM3 Red Blood Count 2.87 MIL/MM3 MIL/MM3 2.81 MIL/MM3 Hemoglobin 8.0 GM/DL GM/DL 7.6 GM/DL Hematocrit 24.0 % % 23.6 % Mean Corpuscular Volume 83.4 FL FL 84.1 FL Mean Corpuscular Hemoglobin 27.7 PG PG 27.0 PG Mean Corpuscular Hemoglobin Concent 33.2 % % 32.1 % Red Cell Distribution Width 19.1 % % 18.4 % Platelet Count 513 TH/MM3 TH/MM3 344 TH/MM3 Mean Platelet Volume 9.3 FL FL 8.5 FL Laboratory Tests Test 06/15/17 03:45 06/16/17 10:36 Blood Urea Nitrogen 46 MG/DL 52 MG/DL Creatinine 1.51 MG/DL 1.48 MG/DL Random Glucose 417 MG/DL 315 MG/DL Calcium Level 7.5 MG/DL 7.4 MG/DL Sodium Level 142 MEQ/L 143 MEQ/L Potassium Level 3.9 MEQ/L 3.6 MEQ/L Chloride Level 106 MEQ/L 109 MEQ/L Carbon Dioxide Level 29.3 MEQ/L 24.2 MEQ/L Anion Gap 7 MEQ/L 10 MEQ/L Estimat Glomerular Filtration Rate 46 ML/MIN 47 ML/MIN Total Protein 5.9 GM/DL Phosphorus Level 2.4 MG/DL Magnesium Level 1.9 MG/DL Protein Corrected Calcium 8.1 MG/DL B-Type Natriuretic Peptide 216 PG/ML Microbiology Date/Time Source Procedure Growth Status 06/14/17 12:45 Blood Peripheral Aerobic Blood Culture - Preliminary NO GROWTH IN 2 DAYS Resulted 06/14/17 12:45 Blood Peripheral Anaerobic Blood Culture - Preliminary NO GROWTH IN 2 DAYS Resulted 06/14/17 12:40 Blood Peripheral Aerobic Blood Culture - Preliminary NO GROWTH IN 2 DAYS Resulted 06/14/17 12:40 Blood Peripheral Anaerobic Blood Culture - Preliminary NO GROWTH IN 2 DAYS Resulted 06/14/17 10:25 Sputum Endotracheal Gram Stain - Final Complete 06/14/17 10:25 Sputum Endotracheal Sputum Culture - Final NO GROWTH IN 48 HOURS. Complete Imaging Chest X-Ray 06/16/17 0000 Signed Impressions: Service Date/Time: Friday, June 16, 2017 08:06 - CONCLUSION: Diffuse consolidation likely related to edema/CHF. This is unchanged from the prior exam. Ap Quigley MD Chest X-Ray 06/07/17 0000 Signed Impressions: Service Date/Time: Wednesday, June 07, 2017 07:19 - CONCLUSION: ET tube in good position. Juan Carvalho MD FACR Abdomen X-Ray 06/05/17 0000 Signed Impressions: Service Date/Time: May 07:39 - CONCLUSION: Normal examination. The nasogastric is within the proximal stomach Desmond Hudson MD Head CT 06/04/17 0000 Signed Impressions: Service Date/Time: May 04:33 - CONCLUSION: 1. No acute intracranial abnormality seen. 2. Mild atrophy. 3. Persistent increased density within the right globe. Ap Quigley MD Head Magnetic Resonance Angiography 05/29/17 0000 Signed Impressions: Service Date/Time: May 18:31 - CONCLUSION: 1. Suboptimal exam degraded by motion as above. No definite occlusive disease. Nilson Jeffries MD Carotid Artery Ultrasound 05/29/17 0000 Signed Impressions: Service Date/Time: May 19:47 - CONCLUSION: Moderate visible plaque in both carotid arteries. Findings suggest at least a moderate stenosis. This would be better evaluated with CTA carotids. Nilson Jeffries MD Brain MRI 05/29/17 0000 Signed Impressions: Service Date/Time: May 18:31 - CONCLUSION: 1. There is increased signal in the posterior left MCA distribution on the diffusion weighted images characteristic of an acute or subacute infarct. Currently no mass shift or evidence for hemorrhage. Nilson Jeffries MD Abdomen/Pelvis CT 05/29/17 0000 Signed Impressions: Service Date/Time: May 18:10 - CONCLUSION: 1. No acute finding on CT abdomen and pelvis. 2. Calcified gallstones. 3. There is a small hiatal hernia. Distended bladder. 4. 2.3 cm lesion lower pole right kidney not clearly a cyst. Recommend renal ultrasound to assess for cyst versus solid mass. Nilson Jeffries MD Physical Exam GENERAL: Sedated on the vent. HEENT: Head atraumatic, No icterus. NECK: Supple. No adenopathy. LUNGS: Basilar rhonchi bilateral. CARDIAC: Regular rate and rhythm. No murmurs. ABDOMEN: Obese, distended. Soft, non tender. EXTREMITIES: No clubbing, cyanosis or edema. Chronic ulcerations at RLE. SKIN: No rash. IMPRESSION: sp PEA sp stroke Fever. Recurrent. Pneumonia. MRSA. New acute VDRF RECOMMEND: Continue the zyvox po for MRSA. Continue Aztreonam for gram negative coverage. Allergic to Penicillin. Continue Fluconazole. Monitor the temp. Follow clinical response. Change flagyl to PO. Chevy Melvin MD Jun 16, 2017 17:00
[2017-06-16] MEDS: metroNIDAZOLE 500 MG TAB PO SCH (21:19)
[2017-06-16] MEDS: ATORVASTATIN 40 MG TAB PO SCH (21:19)
[2017-06-17] VITALS (18 sets, daily range): BP systolic 124–138; BP diastolic 58–63; PULSE 68–89; RESP 14–16; TEMP 99.2–100.8; O2SAT 94–100
[2017-06-17] MEDS: INSULIN NovoLIN REGULAR SUPPLEMENTAL SCALE SQ SCH ×6 (01:02→20:40)
[2017-06-17] MEDS: AZTREONAM INJ 1,000 MG in SODIUM CHLORIDE 0.9% INJ 100 ML IV SCH ×3 (01:02→16:02)
[2017-06-17] MEDS: FUROSEMIDE 40 MG/4 ML VIAL IV PUSH SCH ×3 (01:03→16:02)
[2017-06-17 05:18] LABS: HEMATOCRIT 23.5 % (39.0-51.0); HEMOGLOBIN 7.6 GM/DL (13.0-17.0); MEAN CORPUSCULAR HEMOGLOBIN 27.4 PG (27.0-34.0); MEAN CORPUSCULAR HGB CONC 32.2 % (32.0-36.0); MEAN PLATELET VOLUME 8.4 FL (7.0-11.0); PLATELET COUNT 339 TH/MM3 (150-450); RED BLOOD COUNT 2.76 MIL/MM3 (4.50-5.90); RED CELL DISTRIBUTION WIDTH 19.1 % (11.6-17.2); WHITE BLOOD COUNT 13.8 TH/MM3 (4.0-11.0)
[2017-06-17] MEDS: LEVOTHYROXINE SODIUM 112 MCG TAB PO SCH (05:28)
[2017-06-17] MEDS: FREE WATER G-TUBE SCH ×2 (05:28→14:00)
[2017-06-17] MEDS: LEVOTHYROXINE SODIUM 25 MCG TAB PO SCH (05:28)
[2017-06-17] MEDS: metroNIDAZOLE 500 MG TAB PO SCH ×3 (05:28→21:41)
[2017-06-17] MEDS: LINEZOLID 600 MG TAB PO SCH ×2 (05:28→17:13)
[2017-06-17] MEDS: PROPOFOL 1000 MG/100 ML INJ 100 ML IV PRN ×4 (05:28→21:23)
[2017-06-17] MEDS: ACETAMINOPHEN 325 MG TAB PO PRN (05:29)
[2017-06-17] MEDS: AMIODARONE INJ 450 MG in SODIUM CHLOR 0.9% (EXCEL) INJ 241 ML IV PRN (05:37)
[2017-06-17 05:44] LABS: BICARBONATE 25.6 MEQ/L (21.0-32.0); CALCIUM 7.6 MG/DL (8.5-10.1); CREATININE 1.42 MG/DL (0.60-1.30); PHOSPHORUS 2.9 MG/DL (2.5-4.9)
[2017-06-17] MEDS: CARVEDILOL 3.125 MG TAB PO SCH ×2 (08:15→20:41)
[2017-06-17] MEDS: DOCUSATE SODIUM 50 MG/SENNA 8.6 MG TAB PO SCH ×2 (08:15→20:41)
[2017-06-17] MEDS: DIGOXIN 0.125 MG TAB PO SCH (08:16)
[2017-06-17] MEDS: ASPIRIN 325 MG TAB PO SCH (08:16)
[2017-06-17] MEDS: SODIUM CHLORIDE 0.9% FLUSH 10 ML FLUSH IV FLUSH SCH ×2 (08:16→20:41)
[2017-06-17] MEDS: FLUCONAZOLE 100 MG TAB PO SCH (08:16)
[2017-06-17] MEDS: INSULIN DETEMIR 100 UNITS/ML VIAL SQ SCH ×2 (08:17→20:42)
[2017-06-17] MEDS: NUTRISOURCE FIBER POWDER 1 PACK G-TUBE SCH ×2 (08:17→20:40)
[2017-06-17] MEDS: CHLORHEXIDINE 0.12% (ORAL KIT) 15 ML CUP MT SCH ×2 (08:17→20:00)
[2017-06-17] MEDS: CARBAMIDE PEROXIDE 6.5% OTIC SOLN 15 ML BTL EACH EAR SCH (08:18)
[2017-06-17] MEDS: prednisoLONE ACETATE 1% OPHT SUSP 5 ML BTL RIGHT EYE SCH ×2 (08:18→20:42)
[2017-06-17] MEDS: FAMOTIDINE 40 MG/5 ML LIQ 50 ML BTL NG SCH ×2 (08:18→20:41)
--- NOTE | 2017-06-17 09:11 | HHI.CCPN ---
Subjective Remarks/Hospital Course Patient is a 67-year-old white male was admitted to the 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 He has a past medical history significant for CHF with ejection fraction 25% (echo 06/01), Atrial fibrillation on Xarelto, chronic kidney disease stage III, rhabdomyolysis , Hypertension, Anemia, Hyperlipidemia, Diabetes Mellitus and Hypothyroidism. Apparently patient was in his regular state of health, improving right hemiparesis today am. A code blue was called overhead after the patient was found on the bed unresponsive and pulseless, which I responded immediately. CPR was started. See Code sheet for details-rhythm was pea with A. fib. Patient received 2 amp epinephrine, 1amp of bicarb. CPR continued and after total 5 min there was return of spontaneous circulation. I intubated patient during code, after return of spontaneous circulation. Patient was quickly moved to the ICU where resuscitation was continued with IV fluids boluses. I placed a right femoral arterial line for invasive cardiac/hemodynamic monitoring. As the blood pressure was trending down to low 90s systolic patient was started on Levophed infusion. I also placed a right subclavian central line. Patient remained in atrial fibrillation but blood pressure improved with map consistently above 65 with fluid resuscitation and Levophed infusion. I discussed with patient's guardian, who wants patient to be DNR, but wants to continue aggressive treatment. CT of the head is pending at this time. PE is unlikely as the patient had been on Xarelto for anticoagulation SUBJ 06/05/17: Intubated currently off sedation. Remains encephalopathic, sodium 150. Restart Lasix. Did not tolerate weaning trial due to apnea. Stat echo shows EF 20% 06/06 Reconsult: Rylie was called on floor for resp distress on arrival to [facility] patient was tachycardic, tachypneic and hypoxic with sats 80's on NRB. He was subsequently intubated and placed on mechanical ventilation. Patient was given Lasix 40mg IV. 06/08 Patient remains sedated and intubated. Afebrile. Renal function is improving with Cr: 1.55 today from 1.93 06/09: Remains sedated, orally intubated on mechanical ventilation. Hemoglobin 7.2 this morning. No melena or rectal bleeding overnight per discussion with RN 06/10: Remains sedated, orally intubated on mechanical ventilation. Received 1 unit PRBCs yesterday. 06/11: Remains sedated, orally intubated on mechanical ventilation. Daily C Pap trials. 06/12: failed cpap yesterday for weakness and tachypnea. 06/13: significant stool output yesterday and overnight. wbc still elevated. febrile overnight. placed rectal tube due to significant stool causing skin breakdown. sent c. diff pcr and started flagyl iv. still failing sbt daily. overall poor prognosis. 06/14: Remains sedated, orally intubated on mechanical ventilation. Tolerating tube feeds. 06/15: Remains sedated, orally intubated on mechanical ventilation. Did not tolerate CPAP trials yesterday. 06/16: Sedated, orally intubated on mechanical ventilation. Went into A. fib with RVR this morning. Hemoglobin 6.1 on a.m. labs. One unit PRBCs ordered and repeat CBC ordered to confirm. He did have a temperature spike of 102.2 overnight. No hypotension. No melena or rectal bleeding noted overnight. 06/17: [id number]. The patient remained on amiodarone throughout the night, being transitioned to amiodarone PO this a.m. the patient continues to have elevated blood glucose level in the 300s, Levemir increased to 27 units twice a day. Hemoglobin stable this a.m.. Objective Vital Signs Date Time Temp Pulse Resp B/P (MAP) Pulse Ox O2 Delivery O2 Flow Rate FiO2 06/17/17 08:33 35 06/17/17 08:33 98 06/17/17 06:00 74 06/17/17 05:37 132/60 06/17/17 04:00 100.8 06/16/17 16:00 14 06/14/17 19:25 Ventilator Intake and Output 06/17/17 06/17/17 06/18/17 08:00 16:00 00:00 Intake Total 1165 ml Output Total 825 ml Balance 340 ml Result Diagram: 06/17/17 0410 06/17/17 0410 Other Results Microbiology Date/Time Source Procedure Growth Status 06/14/17 10:25 Sputum Endotracheal Gram Stain - Final Complete 06/14/17 10:25 Sputum Endotracheal Sputum Culture - Final NO GROWTH IN 48 HOURS. Complete Imaging Last Impressions Chest X-Ray 06/16/17 0000 Signed Impressions: Service Date/Time: Friday, June 16, 2017 08:06 - CONCLUSION: Diffuse consolidation likely related to edema/CHF. This is unchanged from the prior exam. Ap Quigley MD Abdomen X-Ray 06/05/17 0000 Signed Impressions: Service Date/Time: May 07:39 - CONCLUSION: Normal examination. The nasogastric is within the proximal stomach Desmond Hudson MD Head CT 06/04/17 0000 Signed Impressions: Service Date/Time: May 04:33 - CONCLUSION: 1. No acute intracranial abnormality seen. 2. Mild atrophy. 3. Persistent increased density within the right globe. Ap Quigley MD Head Magnetic Resonance Angiography 05/29/17 0000 Signed Impressions: Service Date/Time: May 18:31 - CONCLUSION: 1. Suboptimal exam degraded by motion as above. No definite occlusive disease. Nilson Jeffries MD Carotid Artery Ultrasound 05/29/17 0000 Signed Impressions: Service Date/Time: May 19:47 - CONCLUSION: Moderate visible plaque in both carotid arteries. Findings suggest at least a moderate stenosis. This would be better evaluated with CTA carotids. Nilson Jeffries MD Brain MRI 05/29/17 0000 Signed Impressions: Service Date/Time: May 18:31 - CONCLUSION: 1. There is increased signal in the posterior left MCA distribution on the diffusion weighted images characteristic of an acute or subacute infarct. Currently no mass shift or evidence for hemorrhage. Nilson Jeffries MD Abdomen/Pelvis CT 05/29/17 0000 Signed Impressions: Service Date/Time: May 18:10 - CONCLUSION: 1. No acute finding on CT abdomen and pelvis. 2. Calcified gallstones. 3. There is a small hiatal hernia. Distended bladder. 4. 2.3 cm lesion lower pole right kidney not clearly a cyst. Recommend renal ultrasound to assess for cyst versus solid mass. Nilson Jeffries MD Last Impressions Chest X-Ray 06/07/17 0000 Signed Impressions: Service Date/Time: Wednesday, June 07, 2017 07:19 - CONCLUSION: ET tube in good position. Juan Carvalho MD FACR Abdomen X-Ray 06/05/17 0000 Signed Impressions: Service Date/Time: May 07:39 - CONCLUSION: Normal examination. The nasogastric is within the proximal stomach Desmond Hudson MD Head CT 06/04/17 0000 Signed Impressions: Service Date/Time: May 04:33 - CONCLUSION: 1. No acute intracranial abnormality seen. 2. Mild atrophy. 3. Persistent increased density within the right globe. Ap Quigley MD Head Magnetic Resonance Angiography 05/29/17 0000 Signed Impressions: Service Date/Time: May 18:31 - CONCLUSION: 1. Suboptimal exam degraded by motion as above. No definite occlusive disease. Nilson Jeffries MD Carotid Artery Ultrasound 05/29/17 0000 Signed Impressions: Service Date/Time: May 19:47 - CONCLUSION: Moderate visible plaque in both carotid arteries. Findings suggest at least a moderate stenosis. This would be better evaluated with CTA carotids. Nilson Jeffries MD Brain MRI 05/29/17 0000 Signed Impressions: Service Date/Time: May 18:31 - CONCLUSION: 1. There is increased signal in the posterior left MCA distribution on the diffusion weighted images characteristic of an acute or subacute infarct. Currently no mass shift or evidence for hemorrhage. Nilson Jeffries MD Abdomen/Pelvis CT 05/29/17 0000 Signed Impressions: Service Date/Time: May 18:10 - CONCLUSION: 1. No acute finding on CT abdomen and pelvis. 2. Calcified gallstones. 3. There is a small hiatal hernia. Distended bladder. 4. 2.3 cm lesion lower pole right kidney not clearly a cyst. Recommend renal ultrasound to assess for cyst versus solid mass. Nilson Jeffries MD Objective Remarks GENERAL: Elderly obese male lethargic, encephalopathic EYES: legally blind per previous notes ENT: Poor dentition. Orotracheally intubated CARDIOVASCULAR: normal rate, regular rhythm. sinus by tele. RESPIRATORY: equal chest rise. prvc mode. fio2 40% GASTROINTESTINAL soft, nontender, nondistended. no guarding. MUSCULOSKELETAL: S/p right great toe and fifth toe amputation, Small ulcers on bilateral anterior fleming, Non stageable pressure ulcer on bilateral sole, eschar left lateral foot NEUROLOGICAL: Sedated, Intubated, RASS -1. A/P Assessment and Plan Assessment: 67yM with encephalopathy and respiratory failure that is not improving after 2 weeks. now DNR. still no improvements and now with diarrhea and fever, concerning for infectious source. still without improvements, and may be declining again. overall poor prognosis. NEURO: Metabolic encephalopathy Hypoxic Ischemic Encephalopathy Status post left MCA stroke 6 days PANEL WIRER - Encephalopathy post code probable anoxic injury - CT of the head 06/04 -no acute changes, MRI 05/29 had show L MCA stroke - Diprivan infusion for sedation. Daily sedation vacation. RESP: Acute hypoxic respiratory failure on mechanical ventilation - Continue with vent support keep sat >92% -Bronchodilators, ICU vent bundle. - SBT daily as farzad. continues to fail daily. CV: PEA arrest on 06/04 Cardiogenic shock-resolved Atrial fibrillation on chronic Xarelto Cardiomyopathy with EF 25% - Monitor HR and BP keep MAP>65mmHg - 2D Echo 06/01 with EF 25%. - continue lasix to 40mg iv q8h - Continue aspirin, Coreg 3.125mg BID. Not on Pk-I due to KATERIN. Will hold Xarelto in view of drop in hemoglobin on 06/16 Digoxin 0.5 mg IV stat followed by 0.125 mg by mouth daily. amiodarone infusion to attempt rate control and pharmacologic cardioversion on 06/16 Transitioned Amiodarone 200 mg q 12 hours, GI: Diarrhea - PO pepcid - On tube feeds with Glucerna 1.5 with goal rate 45ml/hr - fiber to tube feeds : Acute on chronic Chronic kidney disease, stage III - Monitor renal function, I/O's, electrolytes replacement as needed. -Renal is following- Dr. Martin. - lasix 40mg iv q8h - Free water 250ml [id number] sodium level. ID: -Pneumonia ( MRSA, E.coli) Sputum 06/04: MRSA, E.coli - Continue abx per ID ( Vanco, Cefepime stopped on 06/09). Started on Zyvox per ID. On aztreonam, Diflucan per ID HEME: - Monitor CBC, 1 unit PRBCs ordered for Hgb 7.2 on 06/09. One unit PRBCs ordered for hemoglobin 6.1-> 7.6 stable ENDO: Hypothyroidism. - Sliding-scale insulin for glycemic control -Continue Synthroid. TSH: 1.2 PROPH: - Bilateral lower extremity SCDs. On hold Xareljaron MSK: - Wound care consulted for bilateral sole pressure ulcer, eschar L lateral feet LINES: - Right subclavian central line placed 06/04/17 Palliative care following to assist with deciding goals of therapy. CODE STATUS DNR Dispo: Level 3 Discussed with [employer] WORKER APPRENTICE at bedside (Moustapha) Physician Krista Sawyer MD Jun 17, 2017 09:11
[2017-06-17] MEDS ORDERED: CALCIUM GLUCONATE INJ 1 GM in SODIUM CHLORIDE 0.9% INJ 100 ML IV ONE (10:00)
[2017-06-17] MEDS: AMIODARONE 200 MG TAB PO SCH ×2 (10:07→20:41)
--- NOTE | 2017-06-17 10:42 | HHI.FPPN ---
Subjective Remarks Patient seen and examined this morning. MAXIMUM TEMPERATURE 100.8 overnight. Patient currently on CPAP, off sedation. Makes eye contact, follows commands. (Jermaine Bell MD R1) Objective Vitals Vital Signs Date Time Temp Pulse Resp B/P (MAP) Pulse Ox O2 Delivery O2 Flow Rate FiO2 06/17/17 08:33 35 06/17/17 08:33 98 35 06/17/17 08:00 99.6 71 14 136/63 (87) 100 06/17/17 08:00 89 06/17/17 08:00 35 06/17/17 06:00 74 06/17/17 05:37 72 132/60 06/17/17 04:00 72 06/17/17 04:00 35 06/17/17 04:00 100.8 72 138/63 (88) 100 06/17/17 03:14 100 35 06/17/17 02:00 73 06/17/17 00:26 96 35 06/17/17 00:00 68 06/17/17 00:00 99.4 68 131/59 (83) 94 06/17/17 00:00 35 06/16/17 22:00 73 06/16/17 20:00 35 06/16/17 20:00 73 06/16/17 20:00 99.1 73 142/60 (87) 100 06/16/17 19:38 100 35 06/16/17 18:00 76 06/16/17 16:00 98.9 76 14 118/56 (76) 06/16/17 16:00 76 06/16/17 16:00 35 06/16/17 15:16 98 35 06/16/17 14:24 78 125/60 06/16/17 14:00 77 06/16/17 12:00 81 06/16/17 12:00 98.4 97 14 127/58 (81) 100 06/16/17 12:00 35 06/16/17 10:52 98 35 I/O 06/16/17 06/16/17 06/16/17 06/17/17 06/17/17 06/17/17 07:00 15:00 23:00 07:00 15:00 23:00 Intake Total 2341 ml 553 ml 906 ml 1165 ml Output Total 825 ml 700 ml 825 ml Balance 1516 ml 553 ml 206 ml 340 ml IV Total 900 ml 553 ml 300 ml 674 ml Tube Feeding 941 ml 606 ml 491 ml Tube Irrigant 500 ml Output Urine Total 525 ml 600 ml 425 ml Stool Total 300 ml 100 ml 400 ml # Bowel Movements 1 (Jermaine Bell MD R1) Result Diagram: 06/17/1740906/17/17409 Objective Remarks GENERAL: elderly man, intubated, laying in bed SKIN: scaling and dryness of right and left leg EYES: legally blind, yellow crusting of both eyes ENT: dental caries, dry crusting of lips; intubated CARDIOVASCULAR: Regular rate and rhythm RESPIRATORY: decreased breath sounds in b/l bases. 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 Currently on empiric antibiotics due to meeting sepsis criteria. Discharge Planning Unclear timetable at this time; poor prognosis PT- return to SNF at [facility]- patient will require speech therapy after discharge OT- OT at rehab, SNF Palliative to readdress comfort care, hospice with guardian on Friday 06/16 ---> patient's guardian considering comfort care, will need list of medical problems. Working with palliative care at this time. Will need a specific list of what the guardian needs before we proceede. (Jermaine Bell MD R1) Problem List: (1) Anemia ICD Codes: D64.9 - Anemia, unspecified Plan: Hgb 6.1 06/16/17, currently 7.6 Status post transfusion 1 unit PRBC -Monitor H/H (2) Pneumonia ICD Codes: J18.9 - Pneumonia Status: Acute Plan: Sputum culture grew MRSA and E. Coli. Possibly aspiration pneumonia ID consulted-appreciate recs. -Linezolid 600 mg Q12 (06/09 - ) -Aztreonam 1g q8H (06/12 - ) -Diflucan 100 mg daily (06/14-) -Flagyl 500mg q6H (06/13 - ) ABx history -cipro/flagyl (06/07) -Started Cefepime (06-07 - 06/10 ) -Vancomycin (06/04 - 06/09) (3) Mechanically assisted ventilation ICD Codes: Z99.11 - Mechanically assisted ventilation Status: Resolved Plan: Extubated 06/05, status post cardiac arrest and return of spontaneous circulation on 06/04. Reintubated 06/07 for respiratory distress. -Continue ICU management Wallpaper Installer consulted-appreciate recs -CPAP trials, continues to fail -Palliative care consulted (4) Ischemic stroke ICD Codes: I63.9 - Cerebral infarction, unspecified Status: Acute Plan: Patient presented with aphasia and left-sided weakness and mild right- sided weakness upon arrival to ED. Brain MRI demonstrated increased signal in the posterior left MCA distribution on the diffusion of weighted images characteristic of an acute or subacute infarct. Currently no mass shift or evidence hemorrhage. Carotid US: moderate visble plaque in both carotid arteries, findings suggest at least a moderate stenosis. possible significant carotid disease, though not a good candidate for further imaging of the carotids at this point Neurology consulted, recs appreciated. -Continue aspirin 325 mg PO daily -Hold Xarelto 20mg PO daily -Physical therapy (5) Sepsis ICD Codes: A41.9 - Sepsis Status: Acute Plan: ID consulted-appreciate recs -Abx per ID as above (6) Congestive heart failure ICD Codes: I50.9 - Heart failure, unspecified Status: Chronic Plan: Echo form 03/14/17 demonstrated 35% ejection fraction CXR 06/01 revealed cardiomegaly and stable compared to CXR 05/22/17, which revealed slight blunting of the left costophrenic sulcus suggesting a small left pleural effusion CXR 06/01 demonstrated moderate pulmonary vascular congestion Echo 06/01: mildly dilated LV, EF 25%, mild to moderate aortic sclerosis Echo 06/04: EF 20% -Lasix 40mg IV q8H -Monitor HR and BP -Coreg 3.125mg BID -Monitor I/Os (7) Chronic kidney disease, stage 3 ICD Codes: N18.3 - Chronic kidney disease, stage 3 (moderate) Plan: Baseline Cr. 1.3-1.5; Stable around 1.2-1.6 -Continue to monitor -Nephrology consulted, recs appreciated -Avoid nephrotoxins -Follow I/O (8) Atrial fibrillation ICD Codes: I48.91 - Atrial fibrillation Status: Chronic Plan: -Start digoxin daily -Amiodarone infusion -Xarelto 20mg PO daily (9) Hypertension ICD Codes: I10 - Hypertension Status: Chronic Plan: -Continue home meds: Coreg 6.25 mg PO q12 Losartan 50mg PO daily (10) Neurogenic bladder ICD Codes: N31.9 - Neuromuscular dysfunction of bladder, unspecified Plan: Neurogenic bladder due to stroke -Conde catheter placed (11) Hyperlipidemia ICD Codes: E78.5 - Hyperlipidemia Status: Chronic Plan: -Continue Atorvastatin 40mg PO HS (12) Hypothyroidism ICD Codes: E03.9 - Hypothyroidism, unspecified Status: Chronic Plan: -Continue Levothyroxine 112mcg PO daily (13) Diabetes ICD Codes: E11.9 - Diabetes Status: Chronic Plan: Blood sugar elevated to 400s. Added Levemir 15 on 06/14, increased to 25U q12H on 06/15, currently on Levemir 27 units twice a day -Sliding scale insulin -Held home insulin (14) Nutrition, metabolism, and development symptoms ICD Codes: R63.8 - Other symptoms and signs concerning food and fluid intake Status: Acute Plan: Fluids: Free water q8H Diet: Tube feeds Electrolytes: monitor and replace as needed DVT ppx: SCDs (Jermaine Bell MD R1) Problem List: (1) Anemia ICD Codes: D64.9 - Anemia, unspecified Plan: Hgb 6.1 06/16/17, currently 7.6 Status post transfusion 1 unit PRBC -Monitor H/H (2) Pneumonia ICD Codes: J18.9 - Pneumonia Status: Acute Plan: Sputum culture grew MRSA and E. Coli. Possibly aspiration pneumonia ID consulted-appreciate recs. -Linezolid 600 mg Q12 (06/09 - ) -Aztreonam 1g q8H (06/12 - ) -Diflucan 100 mg daily (06/14-) -Flagyl 500mg q6H (06/13 - ) ABx history -cipro/flagyl (06/07) -Started Cefepime (06-07 - 06/10 ) -Vancomycin (06/04 - 06/09) (3) Mechanically assisted ventilation ICD Codes: Z99.11 - Mechanically assisted ventilation Status: Resolved Plan: Extubated 06/05, status post cardiac arrest and return of spontaneous circulation on 06/04. Reintubated 06/07 for respiratory distress. -Continue ICU management Wallpaper Installer consulted-appreciate recs -CPAP trials, continues to fail -Palliative care consulted (4) Ischemic stroke ICD Codes: I63.9 - Cerebral infarction, unspecified Status: Acute Plan: Patient presented with aphasia and left-sided weakness and mild right- sided weakness upon arrival to ED. Brain MRI demonstrated increased signal in the posterior left MCA distribution on the diffusion of weighted images characteristic of an acute or subacute infarct. Currently no mass shift or evidence hemorrhage. Carotid US: moderate visble plaque in both carotid arteries, findings suggest at least a moderate stenosis. possible significant carotid disease, though not a good candidate for further imaging of the carotids at this point Neurology consulted, recs appreciated. -Continue aspirin 325 mg PO daily -Hold Xarelto 20mg PO daily -Physical therapy (5) Sepsis ICD Codes: A41.9 - Sepsis Status: Acute Plan: ID consulted-appreciate recs -Abx per ID as above (6) Congestive heart failure ICD Codes: I50.9 - Heart failure, unspecified Status: Chronic Plan: Echo form 03/14/17 demonstrated 35% ejection fraction CXR 06/01 revealed cardiomegaly and stable compared to CXR 05/22/17, which revealed slight blunting of the left costophrenic sulcus suggesting a small left pleural effusion CXR 06/01 demonstrated moderate pulmonary vascular congestion Echo 06/01: mildly dilated LV, EF 25%, mild to moderate aortic sclerosis Echo 06/04: EF 20% -Lasix 40mg IV q8H -Monitor HR and BP -Coreg 3.125mg BID -Monitor I/Os (7) Chronic kidney disease, stage 3 ICD Codes: N18.3 - Chronic kidney disease, stage 3 (moderate) Plan: Baseline Cr. 1.3-1.5; Stable around 1.2-1.6 -Continue to monitor -Nephrology consulted, recs appreciated -Avoid nephrotoxins -Follow I/O (8) Atrial fibrillation ICD Codes: I48.91 - Atrial fibrillation Status: Chronic Plan: -Start digoxin daily -Amiodarone infusion -Xarelto 20mg PO daily (9) Hypertension ICD Codes: I10 - Hypertension Status: Chronic Plan: -Continue home meds: Coreg 6.25 mg PO q12 Losartan 50mg PO daily (10) Neurogenic bladder ICD Codes: N31.9 - Neuromuscular dysfunction of bladder, unspecified Plan: Neurogenic bladder due to stroke -Conde catheter placed (11) Hyperlipidemia ICD Codes: E78.5 - Hyperlipidemia Status: Chronic Plan: -Continue Atorvastatin 40mg PO HS (12) Hypothyroidism ICD Codes: E03.9 - Hypothyroidism, unspecified Status: Chronic Plan: -Continue Levothyroxine 112mcg PO daily (13) Diabetes ICD Codes: E11.9 - Diabetes Status: Chronic Plan: Blood sugar elevated to 400s. Added Levemir 15 on 06/14, increased to 25U q12H on 06/15, currently on Levemir 27 units twice a day -Sliding scale insulin -Held home insulin (14) Nutrition, metabolism, and development symptoms ICD Codes: R63.8 - Other symptoms and signs concerning food and fluid intake Status: Acute Plan: Fluids: Free water q8H Diet: Tube feeds Electrolytes: monitor and replace as needed DVT ppx: SCDs See the residents documentation for details. I saw and evaluated the patient regarding the lr portions of this evaluation and agree with the residents findings and plans as written. Parts of this note were created using [employer] voice recognition software program. While efforts were made to correct any mistakes made by this software, some mistakes, errors, and omissions may remain in the final note that were not caught when the note was originally created. (Lex Urias MD) Problem Qualifiers (1) Pneumonia: Qualified Codes: J15.212 - Pneumonia due to methicillin resistant Staphylococcus aureus (2) Congestive heart failure: Qualified Codes: I50.9 - Heart failure, unspecified (3) Atrial fibrillation: Qualified Codes: I48.2 - Chronic atrial fibrillation (4) Hypertension: Qualified Codes: I10 - Essential (primary) hypertension Jermaine Bell MD R1 Jun 17, 2017 10:42 Lex Urias MD Jun 17, 2017 13:10
--- NOTE | 2017-06-17 15:01 | HHI.NPPN ---
Subjective General Problems: Anemia, Edema, Hypertension Renal Failure: Chronic, Acute, Stage III History of Present Illness 67-year-old male with a past medical history of ischemic heart disease, congestive heart failure, chronic kidney disease, atrial fibrillation, chronic anemia, diabetes mellitus, hypothyroidism, and peripheral vascular disease who was admitted with a complaint of worsening shortness of breath. I was called to see the patient because of elevated BUN and creatinine. The patient has known history of chronic kidney disease and his baseline creatinine seems to be in the range of 1.3-1.5 most of the time. Additional Remarks Problems include CKD, hypoxic encephalopathy, s/p PEA arrest, s/p CVA, respiratory failure. Creatinine is slightly higher again today. On Lasix IV Q 8 hours. He has significant stool output. C.diff negative. Objective Data Data Vital Signs Date Time Temp Pulse Resp B/P (MAP) Pulse Ox O2 Delivery O2 Flow Rate FiO2 06/17/17 14:00 70 06/17/17 12:00 35 06/17/17 12:00 70 06/17/17 12:00 99.5 73 126/59 (81) 98 06/17/17 11:38 96 35 06/17/17 10:00 76 06/17/17 08:33 35 06/17/17 08:33 98 35 06/17/17 08:00 99.6 71 14 136/63 (87) 100 06/17/17 08:00 89 06/17/17 08:00 35 06/17/17 06:00 74 06/17/17 05:37 72 132/60 06/17/17 04:00 72 06/17/17 04:00 35 06/17/17 04:00 100.8 72 138/63 (88) 100 06/17/17 03:14 100 35 06/17/17 02:00 73 06/17/17 00:26 96 35 06/17/17 00:00 68 06/17/17 00:00 99.4 68 131/59 (83) 94 06/17/17 00:00 35 06/16/17 22:00 73 06/16/17 20:00 35 06/16/17 20:00 73 06/16/17 20:00 99.1 73 142/60 (87) 100 06/16/17 19:38 100 35 06/16/17 18:00 76 06/16/17 16:00 98.9 76 14 118/56 (76) 06/16/17 16:00 76 06/16/17 16:00 35 06/16/17 15:16 98 35 -: 06/17/17 0410 06/17/17 0410 Physical Exam Eyes Eye Exam: Pupils Equal Throat Throat Exam: Oral Mucosa [place] & Moist Neck Neck Exam: Neck Supple Pulmonary Resp Exam: Breath Sounds Equal, No Distress, Rhonchi, Decreased Bases Cardiology CV Exam: Regular, Normal Sinus Rhythm Gastrointestinal/Abdomen GI Exam: Soft, Non-Tender, Bowel Sounds Present Extremeties Extremities Exam: Trace Edema (Bilateral scalling and dryness of skin, in lower leg.) Neurologic Neuro Exam: Sedated Assessment/Plan Assessment Summary: KATERIN/Acute Renal Failure, Hypertension, CKD Stage III Problem List: (1) Acute kidney injury ICD Codes: N17.9 - Acute kidney failure, unspecified (2) Altered mental status ICD Codes: R41.82 - Altered mental status Status: Acute (3) Hx of deep venous thrombosis ICD Codes: Z86.718 - History of deep venous thrombosis Status: Chronic (4) CHF (congestive heart failure) ICD Codes: I50.9 - Congestive heart failure Status: Resolved (5) Diabetes ICD Codes: E11.9 - Diabetes Status: Chronic (6) Hypothyroidism ICD Codes: E03.9 - Hypothyroidism, unspecified Status: Chronic (7) Hypertension ICD Codes: I10 - Hypertension Status: Chronic (8) Chronic kidney disease, stage 3 ICD Codes: N18.3 - Chronic kidney disease, stage 3 (moderate) (9) Rhabdomyolysis ICD Codes: M62.82 - Rhabdomyolysis Plan Patient has been non oliguric. Has chronic kidney disease with baseline Creatinine 1.3-1.5. Most likely has chronic kidney disease due to Hypertensive or renovascular disease. Renal function is slightly worse, however, GFR may be near baseline. On Lasix 40 mg IV Q 8 hours. Avoid nephrotoxins. Prognosis is very poor. continue supportive care Cr stable Nephrology to follow PRN bases Problem Qualifiers (1) Hypertension: Qualified Codes: I10 - Essential (primary) hypertension Maricarmen Rivas MD Jun 17, 2017 15:01
--- NOTE | 2017-06-17 16:24 | HHI.IDPN ---
Note Infectious Disease Note ID COVERAGE for DR. Bello. Patient on the vent. Temp lower. Sedated. not much response on weaning sedation. 2 hours of CPAP today. Discussed with RN. Antibiotics Linezolid. Aztreonam. Fluconazole. Allergies: Coded Allergies: Iodinated Contrast- Oral and IV Dye (Verified Allergy, Severe, Anaphylaxis , 05/29/17) acetaminophen (Unverified Allergy, Severe, "LIVER PROBLEMS", 05/29/17) diatrizoate meglumine (Unverified Allergy, Severe, Anaphylaxis, 05/29/17) gadobenic acid (Unverified Allergy, Severe, Anaphylaxis, 05/29/17) gadodiamide (Unverified Allergy, Severe, Anaphylaxis, 05/29/17) gadoteridol (Unverified Allergy, Severe, Anaphylaxis, 05/29/17) iodixanol (Unverified Allergy, Severe, Anaphylaxis, 05/29/17) iohexol (Unverified Allergy, Severe, Anaphylaxis, 05/29/17) penicillin G (Unverified Allergy, Severe, "HOT THROAT", 05/29/17) Uncoded Allergies: RADIOISOTOPES (Allergy, Severe, 09/27/13) UNKONWN RXN, LISTED ON PATIENT PAPERWORK FROM [facility]. OBJECTIVE; Current Medications Medications (Trade) Dose Ordered Sig/Gucci Route PRN Reason Start Time Stop Time Status Last Admin Dose Admin Sodium Chloride (NS Flush) 2 ml UNSCH PRN IV FLUSH FLUSH AFTER USING IV ACCESS 05/29/17 16:00 06/09/17 20:16 Sodium Chloride (NS Flush) 2 ml BID IV FLUSH 05/29/17 21:00 06/17/17 08:16 Ondansetron HCl (Zofran Inj) 4 mg Q6H PRN IVP NAUSEA OR VOMITING 05/29/17 16:00 Senna/Docusate Sodium (Kimberly-Colace) 1 tab BID PO 05/29/17 21:00 06/17/17 08:15 Albuterol Sulfate (Albuterol Neb) 2.5 mg Q2HR NEB PRN NEB SHORTNESS OF BREATH 05/29/17 16:15 Atorvastatin Calcium (Lipitor) 40 mg HS PO 05/29/17 21:00 06/16/17 21:19 Carbamide Peroxide (Debrox 6.5% Otic) 5 drop DAILY EACH EAR 05/30/17 09:00 06/17/17 08:18 Hydroxyzine HCl (Atarax) 25 mg Q6H PRN PO ITCHING 05/29/17 16:15 Future Hold Prednisolone Acetate (Pred Forte 1% Opth Susp) 1 drop BID RIGHT EYE 05/29/17 21:00 06/17/17 08:18 Levothyroxine Sodium (Synthroid) 112 mcg DAILY@0600 PO 05/30/17 06:00 06/17/17 05:28 Levothyroxine Sodium (Synthroid) 25 mcg DAILY@0600 PO 05/30/17 06:00 06/17/17 05:28 Aspirin (Aspirin) 325 mg DAILY PO 06/01/17 09:00 06/17/17 08:16 Acetaminophen (Tylenol) 650 mg Q4H PRN PO TEMP > 100.4 05/31/17 12:45 06/17/17 05:29 Losartan Potassium (Cozaar) 50 mg DAILY PO 06/01/17 11:15 Future Hold 06/04/17 09:41 Chlorhexidine Gluconate (Peridex 0.12% Liq) 15 ml BID@08,20 MT 06/04/17 20:00 06/17/17 08:17 Terbutaline Sulfate (Brethine Inj) 1 mg UNSCH PRN SQ FOR EXTRAVASATION PROTOCOL 06/04/17 14:45 Naloxone HCl (Narcan Inj) 0.4 mg UNSCH PRN IV PUSH SEE LABEL COMMENTS 06/06/17 10:30 Carvedilol (Coreg) 3.125 mg Q12HR PO 06/07/17 09:00 06/17/17 08:15 Albuterol/ Ipratropium (Duoneb Neb) 1 ampule Q2HR NEB PRN NEB SHORTNESS OF BREATH 06/07/17 07:45 Propofol 100 ml @ 2.484 mls/ hr TITRATE PRN IV SEDATION 06/07/17 07:45 06/17/17 10:08 Linezolid (Zyvox) 600 mg Q12H PO 06/09/17 18:00 06/17/17 05:28 Rivaroxaban (Xarelto) 20 mg DAILY PO 06/10/17 09:00 Future Hold 06/15/17 08:45 Furosemide (Lasix Inj) 40 mg Q8H IV PUSH 06/12/17 09:00 06/17/17 16:02 Famotidine (Pepcid Liq) 40 mg BID NG 06/12/17 09:00 06/17/17 08:18 Aztreonam 1000 mg/ Sodium Chloride 100 ml @ 200 mls/hr Q8H IV 06/12/17 17:00 06/17/17 16:02 Guar Gum (Nutrisource Fiber Powder) 2 pack BID G-TUBE 06/13/17 09:00 06/17/17 08:17 Dextrose (D50w (Vial) Inj) 25 ml UNSCH PRN IV PUSH HYPOGLYCEMIA-SEE COMMENTS 06/13/17 06:30 Fluconazole (Diflucan) 100 mg DAILY PO 06/14/17 10:00 06/17/17 08:16 Insulin Human Regular (NovoLIN R SUPPLEMENTAL SCALE) 1 Q4HR SQ 06/15/17 12:00 06/17/17 16:01 Digoxin (Lanoxin) 0.125 mg DAILY PO 06/16/17 09:00 06/17/17 08:16 Metronidazole (Flagyl) 500 mg Q8HR PO 06/16/17 22:00 06/17/17 14:28 Water (Free Water) 250 ml Q12H G-TUBE 06/17/17 14:00 06/17/17 14:00 Insulin Detemir (Levemir Inj) 27 units Q12HR SQ 06/17/17 21:00 Amiodarone HCl (Cordarone) 200 mg Q12HR PO 06/17/17 10:00 06/17/17 10:07 OBJECTIVE: Vital Signs Date Time Temp Pulse Resp B/P (MAP) Pulse Ox O2 Delivery O2 Flow Rate FiO2 06/17/17 14:00 70 06/17/17 12:00 35 06/17/17 12:00 70 06/17/17 12:00 99.5 73 126/59 (81) 98 06/17/17 11:38 96 35 06/17/17 10:00 76 06/17/17 08:33 35 06/17/17 08:33 98 35 06/17/17 08:00 99.6 71 14 136/63 (87) 100 06/17/17 08:00 89 06/17/17 08:00 35 06/17/17 06:00 74 06/17/17 05:37 72 132/60 06/17/17 04:00 72 06/17/17 04:00 35 06/17/17 04:00 100.8 72 138/63 (88) 100 06/17/17 03:14 100 35 06/17/17 02:00 73 06/17/17 00:26 96 35 06/17/17 00:00 68 06/17/17 00:00 99.4 68 131/59 (83) 94 06/17/17 00:00 35 06/16/17 22:00 73 06/16/17 20:00 35 06/16/17 20:00 73 06/16/17 20:00 99.1 73 142/60 (87) 100 06/16/17 19:38 100 35 06/16/17 18:00 76 Laboratory Tests Test 06/16/17 04:34 06/16/17 10:36 06/17/17 04:10 White Blood Count TH/MM3 12.3 TH/MM3 13.8 TH/MM3 Red Blood Count MIL/MM3 2.81 MIL/MM3 2.76 MIL/MM3 Hemoglobin GM/DL 7.6 GM/DL 7.6 GM/DL Hematocrit % 23.6 % 23.5 % Mean Corpuscular Volume FL 84.1 FL 85.0 FL Mean Corpuscular Hemoglobin PG 27.0 PG 27.4 PG Mean Corpuscular Hemoglobin Concent % 32.1 % 32.2 % Red Cell Distribution Width % 18.4 % 19.1 % Platelet Count TH/MM3 344 TH/MM3 339 TH/MM3 Mean Platelet Volume FL 8.5 FL 8.4 FL Laboratory Tests Test 06/16/17 10:36 06/17/17 04:10 Blood Urea Nitrogen 52 MG/DL 53 MG/DL Creatinine 1.48 MG/DL 1.42 MG/DL Random Glucose 315 MG/DL 302 MG/DL Total Protein 5.9 GM/DL Calcium Level 7.4 MG/DL 7.6 MG/DL Phosphorus Level 2.4 MG/DL 2.9 MG/DL Magnesium Level 1.9 MG/DL Sodium Level 143 MEQ/L 142 MEQ/L Potassium Level 3.6 MEQ/L 3.9 MEQ/L Chloride Level 109 MEQ/L 107 MEQ/L Carbon Dioxide Level 24.2 MEQ/L 25.6 MEQ/L Anion Gap 10 MEQ/L 9 MEQ/L Estimat Glomerular Filtration Rate 47 ML/MIN 49 ML/MIN Protein Corrected Calcium 8.1 MG/DL B-Type Natriuretic Peptide 216 PG/ML Chest X-Ray 06/16/17 0000 Signed Impressions: Service Date/Time: Friday, June 16, 2017 08:06 - CONCLUSION: Diffuse consolidation likely related to edema/CHF. This is unchanged from the prior exam. Ap Quigley MD Chest X-Ray 06/07/17 0000 Signed Impressions: Service Date/Time: Wednesday, June 07, 2017 07:19 - CONCLUSION: ET tube in good position. Juan Carvalho MD FACR Abdomen X-Ray 06/05/17 0000 Signed Impressions: Service Date/Time: May 07:39 - CONCLUSION: Normal examination. The nasogastric is within the proximal stomach Desmond Hudson MD Head CT 06/04/17 0000 Signed Impressions: Service Date/Time: May 04:33 - CONCLUSION: 1. No acute intracranial abnormality seen. 2. Mild atrophy. 3. Persistent increased density within the right globe. Ap Quigley MD Head Magnetic Resonance Angiography 05/29/17 0000 Signed Impressions: Service Date/Time: May 18:31 - CONCLUSION: 1. Suboptimal exam degraded by motion as above. No definite occlusive disease. Nilson Jeffries MD Carotid Artery Ultrasound 05/29/17 0000 Signed Impressions: Service Date/Time: May 19:47 - CONCLUSION: Moderate visible plaque in both carotid arteries. Findings suggest at least a moderate stenosis. This would be better evaluated with CTA carotids. Nilson Jeffries MD Brain MRI 05/29/17 0000 Signed Impressions: Service Date/Time: May 18:31 - CONCLUSION: 1. There is increased signal in the posterior left MCA distribution on the diffusion weighted images characteristic of an acute or subacute infarct. Currently no mass shift or evidence for hemorrhage. Nilson Jeffries MD Abdomen/Pelvis CT 05/29/17 0000 Signed Impressions: Service Date/Time: May 18:10 - CONCLUSION: 1. No acute finding on CT abdomen and pelvis. 2. Calcified gallstones. 3. There is a small hiatal hernia. Distended bladder. 4. 2.3 cm lesion lower pole right kidney not clearly a cyst. Recommend renal ultrasound to assess for cyst versus solid mass. Nilson Jeffries MD Physical Exam GENERAL: Sedated on the vent. HEENT: Head atraumatic, No icterus. NECK: Supple. No adenopathy. LUNGS: Basilar rhonchi. CARDIAC: Regular rate and rhythm. No murmurs. ABDOMEN: Obese, distended. Soft, non tender. decreased bowel sounds. EXTREMITIES: No clubbing, cyanosis or edema. Chronic ulcerations at RLE. SKIN: No rash. IMPRESSION: sp PEA sp stroke Fever. Recurrent. Pneumonia. MRSA. New acute VDRF RECOMMEND: Continue the zyvox po for MRSA. Continue Aztreonam for gram negative coverage. Allergic to Penicillin. Continue Fluconazole. Monitor the temp. Follow clinical response. Change flagyl to PO. Awaiting POA to make decision on aggressiveness of care. Chevy Melvin MD Jun 17, 2017 16:24
--- NOTE | 2017-06-17 16:52 | HHI.HCPN ---
Reason for visit a. To assist with evaluation and management of symptoms including: dyspnea, debility, pain b. To assist medical decision maker(s) with: better understanding of current medical conditions; weighing benefits/burdens of medical treatment options; making medical treatment decisions. . (Maria Antonia Whiting) Subjective/Interval History Follow up visit for symptom management and clarification of medical treatment goals. Patient remains intubated on mechanical ventilation, CPAP for 2 hours as morning. Arousable to tactile stimuli; withdraws to pain. GCS of 7. On amiodarone throughout the night and will transition to oral amiodarone this morning. Blood glucose level remain elevated in the 300s, Levemir increased to 27 units twice a day. Follow-up chest x-ray 06/16/2017 with diffuse consolidation likely related to edema/CHF which is unchanged from the prior image. H/H stable this morning 7.6/23.5. T-max overnight of 100.8. WBC of 13.8. Repeat sputum culture 06/07/17 + MRSA. On PO Zyvox for MRSA, Azethreonam was started for gram-negative coverage. Repeat sputum and blood cultures on 06/14/2017 remain negative to date. Tolerating tube feedings with Glucerna 1.5 with goal rate 45 mL per hour. Total protein: 5.9, albumin 1.5. Having significant diarrhea, rectal tube was placed secondary to skin breakdown. C. difficile negative on 06/13/2017 Bilateral lower extremities with right great toe and fifth toe amputation. Skin is erythematous, dry with multiple ulcers that are covered in clean dry intact dressings. Patient has an unstageable DTI measuring 10.3cm x 13.1cm, wound bed is reportedly necrotic with mild odor. Wound care following. . (Maria Antonia Whiting) Advance Directives Advance Directive Specifics Documented care wishes: No documented care wishes are available at this time. . (Maria Antonia Whiting) Objective Vital Signs Date Time Temp Pulse Resp B/P (MAP) Pulse Ox O2 Delivery O2 Flow Rate FiO2 06/17/17 16:00 35 06/17/17 16:00 70 06/17/17 16:00 99.2 72 14 124/59 (80) 100 06/17/17 14:00 70 06/17/17 12:00 35 1/2/18 12:00 70 06/17/17 12:00 99.5 73 126/59 (81) 98 06/17/17 11:38 96 35 06/17/17 10:00 76 06/17/17 08:33 35 06/17/17 08:33 98 35 06/17/17 08:00 99.6 71 14 136/63 (87) 100 06/17/17 08:00 89 06/17/17 08:00 35 06/17/17 06:00 74 06/17/17 05:37 72 132/60 06/17/17 04:00 72 06/17/17 04:00 35 06/17/17 04:00 100.8 72 138/63 (88) 100 06/17/17 03:14 100 35 06/17/17 02:00 73 06/17/17 00:26 96 35 06/17/17 00:00 68 06/17/17 00:00 99.4 68 131/59 (83) 94 06/17/17 00:00 35 06/16/17 22:00 73 06/16/17 20:00 35 06/16/17 20:00 73 06/16/17 20:00 99.1 73 142/60 (87) 100 06/16/17 19:38 100 35 06/16/17 18:00 76 Intake & Output 06/17/17 06/17/17 07:00 19:00 Intake Total 1165 ml Output Total 825 ml Balance 340 ml IV Total 674 ml Tube Feeding 491 ml Output Urine Total 425 ml Stool Total 400 ml . Physical Exam CONSTITUTIONAL/GENERAL: This is an adequately nourished patient, fragile appearing male patient who is intubated on mechanical ventilation. TUBES/LINES/DRAINS: PIV, CVL, Conde catheter, ETT, NGT, soft restraints, Giselle Shield, Podus SKIN: Generalized pallor. Right great toe and fifth toe status post amputation. Multiple ulcers on BLE with drsgs dry and intact HEAD: Atraumatic. Normocephalic. EYES: Legally blind per previous notes. Right eye with no scleral icterus, no injection or drainage ENT: Orotracheally intubated. Mucous membranes dry. Nose without bleeding or purulent drainage. CARDIOVASCULAR: Atrial fibrillation with RVR on amiodarone. No JVD. Peripheral pulses symmetrical RESPIRATORY/CHEST: Orotracheally intubated on mechanical ventilation. Breath sounds diminished bilaterally, L > R. scattered rhonchi. GASTROINTESTINAL: Tolerating artificial nutrition at goal. Abdomen is firm, non-tender. Active bowel sounds 4 quadrants. + Diarrhea; C. difficile negative GENITOURINARY: Without palpable bladder distension. Urinary catheter in place. MUSCULOSKELETAL: Status post right great toe and fifth toe amputation. Small ulcers on bilateral anterior fleming. Non stageable pressure ulcer on bilateral sole, eschar left lateral foot. Bilateral lower extremities with atrophy LYMPHATICS: No palpable cervical or supraclavicular adenopathy. NEUROLOGICAL: Nonverbal; does not open eyes to verbal stimuli. Withdraws to pain. PSYCHIATRIC: Unable to assess due to patient's clinical condition . (Maria Antonia hWiting) Diagnostic Tests Laboratory Laboratory Tests Test 06/15/17 03:45 06/15/17 04:00 06/16/17 04:34 06/16/17 10:36 White Blood Count 18.8 TH/MM3 (4.0-11.0) TH/MM3 (4.0-11.0) 12.3 TH/MM3 (4.0-11.0) Red Blood Count 2.87 MIL/MM3 (4.50-5.90) MIL/MM3 (4.50-5.90) 2.81 MIL/MM3 (4.50-5.90) Hemoglobin 8.0 GM/DL (13.0-17.0) GM/DL (13.0-17.0) 7.6 GM/DL (13.0-17.0) Hematocrit 24.0 % (39.0-51.0) % (39.0-51.0) 23.6 % (39.0-51.0) Mean Corpuscular Volume 83.4 FL (80.0-100.0) FL (80.0-100.0) 84.1 FL (80.0-100.0) Mean Corpuscular Hemoglobin 27.7 PG (27.0-34.0) PG (27.0-34.0) 27.0 PG (27.0-34.0) Mean Corpuscular Hemoglobin Concent 33.2 % (32.0-36.0) % (32.0-36.0) 32.1 % (32.0-36.0) Red Cell Distribution Width 19.1 % (11.6-17.2) % (11.6-17.2) 18.4 % (11.6-17.2) Platelet Count 513 TH/MM3 (150-450) TH/MM3 (150-450) 344 TH/MM3 (150-450) Mean Platelet Volume 9.3 FL (7.0-11.0) FL (7.0-11.0) 8.5 FL (7.0-11.0) Blood Urea Nitrogen 46 MG/DL (7-18) 52 MG/DL (7-18) Creatinine 1.51 MG/DL (0.60-1.30) 1.48 MG/DL (0.60-1.30) Random Glucose 417 MG/DL (74-106) 315 MG/DL (74-106) Calcium Level 7.5 MG/DL (8.5-10.1) 7.4 MG/DL (8.5-10.1) Sodium Level 142 MEQ/L (136-145) 143 MEQ/L (136-145) Potassium Level 3.9 MEQ/L (3.5-5.1) 3.6 MEQ/L (3.5-5.1) Chloride Level 106 MEQ/L (98-107) 109 MEQ/L (98-107) Carbon Dioxide Level 29.3 MEQ/L (21.0-32.0) 24.2 MEQ/L (21.0-32.0) Anion Gap 7 MEQ/L (5-15) 10 MEQ/L (5-15) Estimat Glomerular Filtration Rate 46 ML/MIN (>89) 47 ML/MIN (>89) Urine Color YELLOW (YELLW/STRAW) Urine Turbidity CLEAR (CLEAR) Urine pH 5.0 (5.0-8.5) Urine Specific [place] 1.014 (1.002-1.035) Urine Protein NEG mg/dL (NEG-TRACE) Urine Glucose (UA) 150 mg/dL (NEG) Urine Ketones NEG mg/dL (NEG) Urine Occult Blood NEG (NEG) Urine Nitrite NEG (NEG) Urine Bilirubin NEG (NEG) Urine Urobilinogen LESS THAN 2.0 MG/DL (LESS Urine Leukocyte Esterase TRACE (NEG) Urine WBC 5 /hpf (0-5) Urine Squamous Epithelial Cells <1 /hpf (0-5) Urine Mucus FEW /lpf (OCC) Microscopic Urinalysis Comment CATH-CULT NOT IND Total Protein 5.9 GM/DL (6.4-8.2) Phosphorus Level 2.4 MG/DL (2.5-4.9) Magnesium Level 1.9 MG/DL (1.5-2.5) Protein Corrected Calcium 8.1 MG/DL (8.5-10.1) B-Type Natriuretic Peptide 216 PG/ML (0-100) Test 06/17/17 04:10 White Blood Count 13.8 TH/MM3 (4.0-11.0) Red Blood Count 2.76 MIL/MM3 (4.50-5.90) Hemoglobin 7.6 GM/DL (13.0-17.0) Hematocrit 23.5 % (39.0-51.0) Mean Corpuscular Volume 85.0 FL (80.0-100.0) Mean Corpuscular Hemoglobin 27.4 PG (27.0-34.0) Mean Corpuscular Hemoglobin Concent 32.2 % (32.0-36.0) Red Cell Distribution Width 19.1 % (11.6-17.2) Platelet Count 339 TH/MM3 (150-450) Mean Platelet Volume 8.4 FL (7.0-11.0) Blood Urea Nitrogen 53 MG/DL (7-18) Creatinine 1.42 MG/DL (0.60-1.30) Random Glucose 302 MG/DL (74-106) Calcium Level 7.6 MG/DL (8.5-10.1) Phosphorus Level 2.9 MG/DL (2.5-4.9) Sodium Level 142 MEQ/L (136-145) Potassium Level 3.9 MEQ/L (3.5-5.1) Chloride Level 107 MEQ/L (98-107) Carbon Dioxide Level 25.6 MEQ/L (21.0-32.0) Anion Gap 9 MEQ/L (5-15) Estimat Glomerular Filtration Rate 49 ML/MIN (>89) (Maria Antonia Whiting) Result Diagram: 06/17/170 06/17/17 0410 Imaging Last 72 hours Impressions Chest X-Ray 06/16/17 0000 Signed Impressions: Service Date/Time: Friday, June 16, 2017 08:06 - CONCLUSION: Diffuse consolidation likely related to edema/CHF. This is unchanged from the prior exam. Ap Quigley MD Procedures 06/04/2017: PEA arrest with CPR 06/04/2017: Intubation 06/04/2017: Right femur all arterial line placement 06/04/2017: Right subclavian central line placement 06/04/2017: NGT 06/05/2017: Extubation. 06/06/2017: Reintubation . (Maria Antonia Whiting) Assessment and Plan Disease Oriented Problem List: (1) GERD (gastroesophageal reflux disease) (2) Mood disorder (3) COPD (chronic obstructive pulmonary disease) (4) Respiratory failure (5) CAD (coronary artery disease) (6) Chronic kidney disease, stage 3 (7) Atrial fibrillation (8) Hypertension (9) Diabetes (10) Hypothyroidism (11) S/P CABG x 3 Symptom Scale: (1) Dyspnea 0-10 Scale: Unable to quantify (2) Debility 0-10 Scale: Unable to quantify (3) Pain 0-10 Scale: Unable to quantify Pertinent Non-Medical Issues Psychosocial: Jensen was born in [place]. Jensen has 4 half siblings (2 of which currently live in [place]). Jensen was raised by his Aunt. 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 Per previous note, his cousin (Krista) described him as a person that is "difficult to get along with" and strong willed. Jensen enjoys watching sports; including the Yankees and Giants. Jensen also has loved records and eating sweets. Patient is a LTC resident of [facility] and will return there at discharge. Spiritual: Evangelical rio Legal: Court appointed legal guardian as of 10/03/2015 - [employer] Deborah Hankins: [phone] (1st contact). Fernanda Bryant: [phone] Ethical issues impacting care: No known ethical issues impacting care at this time. . Important Contacts Public guardianship - [employer] on aging of [facility]. Deborah Hankins: [phone] (1st contact) Fernanda Bryant: [phone] . Prognosis Patient with significant debility. He is a long-term correction resident who has been hospitalized 4 times in the past 4 months. He has multiple comorbid conditions including his recent MCA stroke, MRSA pneumonia, recurrent respiratory failure and cardiomyopathy with an EF of 25%. He remains encephalopathic status post PEA arrest with possible anoxic brain injury. Given patient's advanced age, complex medical history and baseline debility, he is at high risk for continued decline, complications and rehospitalizations. . Code Status: No Code Plan * NO CODE * [facility] DNR completed 06/09/2017. * Decision-making: Patient does not have insight or judgment related to his medical conditions; he is not capacitated to participate in establishment of medical treatment goals nor will he regain capacity. Court appointed legal guardian as of 10/03/2015 - [employer] Deborah Hankins: [phone] (1st contact). Fernanda Bryant: [phone] * Discussed patient with nurse (Moustapha) * Goals remain aggressive up to the point of cardiopulmonary resuscitation. * Spoke with Deborah Hankins, court-appointed legal [facility]. Likely withdraw artificial life support in the upcoming days. Awaiting a written request from the court detailing what information they require from the medical team before proceeding further. * Symptom management-debility: Patient is a resident of [facility] with plan to discharge back to previous setting. Per legal guardian, patient was maximum assist 2 to transfer from bed to wheelchair prior to hospitalization. He was able to self propel his wheelchair using his feet. * Symptom management-dyspnea: Patient was reintubated 06/05/2017. Sputum culture on 06/04/2017 growing MRSA and Escherichia coli; follow-up sputum culture on 06/07/2017 growing MRSA. Possibly aspiration pneumonia. 06/13/2017: Patient remains intubated and sedated on mechanical ventilation, tolerated CPAP for 2 hours this morning. Follow-up chest x-ray 06/16 with diffuse consolidation likely related to edema/CHF which is unchanged from the prior image. * Symptom management-pain: Patient is currently sedated, showing no nonverbal signs of distress. Per nursing report, patient has a large ulcer on his buttocks with necrosis. PRN morphine is available; patient receiving acetaminophen for elevated temperature which may assist with pain management. Additional factors potentially contributing to patient's pain include impaired skin integrity, impaired circulation, ETT, invasive lines, bedbound status and immobility. Continue to monitor for nonverbal signs/symptoms of pain and adjust medications as indicated. . (Maria Antonia Whiting) Attestation To help prompt me to consider important information that might be impacting today's encounter and assessment, information from prior notes written by myself or my colleagues may have been "brought forward" into today's note. My signature on this note, however, is an attestation that I personally performed the exam, history, and/or decision-making noted today, and, unless otherwise indicated, the interactions with patient, family, and staff as well as the review of records all occurred today. I also attest that the listed assessment and stated plan reflect my best clinical judgment today based on the combination of historical information, prior notes, and today's exam/ interactions. When time spent is documented, it refers only to time spent today by the signer, or if indicated, combined time spent today by collaborating physician/nurse practitioner. . (Maria Antonia Whiting) Collaborating MD Comments Chart reviewed. Case discussed with palliative care BEHAVIORAL PSYCHOLOGIST. Above MARILY note reviewed and I concur. . (Aurelio Walker MD) Maria Antonia Whiting Jun 17, 2017 16:51 Aurelio Walker MD Jun 24, 2017 14:53
[2017-06-17] MEDS: ATORVASTATIN 40 MG TAB PO SCH (20:42)
[2017-06-18] VITALS (20 sets, daily range): BP systolic 126–168; BP diastolic 59–74; PULSE 74–96; RESP 18–20; TEMP 99–100.3; O2SAT 99–100
[2017-06-18] MEDS: INSULIN NovoLIN REGULAR SUPPLEMENTAL SCALE SQ SCH ×6 (00:21→21:01)
[2017-06-18] MEDS: AZTREONAM INJ 1,000 MG in SODIUM CHLORIDE 0.9% INJ 100 ML IV SCH ×3 (00:22→18:46)
[2017-06-18] MEDS: FUROSEMIDE 40 MG/4 ML VIAL IV PUSH SCH ×3 (00:22→18:46)
[2017-06-18] MEDS: FREE WATER G-TUBE SCH ×2 (01:40→12:56)
[2017-06-18] MEDS: PROPOFOL 1000 MG/100 ML INJ 100 ML IV PRN ×3 (02:23→12:56)
[2017-06-18 05:24] LABS: AUTOMATED NEUTROPHIL # 17.1 TH/MM3 (1.8-7.7); BASOPHIL # 0.2 TH/MM3 (0-0.2); BASOPHIL % 0.9 % (0.0-2.0); EOSINOPHIL # 0.6 TH/MM3 (0-0.4); HEMATOCRIT 26.7 % (39.0-51.0); HEMOGLOBIN 8.5 GM/DL (13.0-17.0); LYMPH % 7.9 % (9.0-44.0); LYMPHOCYTE # 1.6 TH/MM3 (1.0-4.8); MEAN CELL VOLUME 84.7 FL (80.0-100.0); MEAN CORPUSCULAR HEMOGLOBIN 27.1 PG (27.0-34.0); MEAN PLATELET VOLUME 8.5 FL (7.0-11.0); MONO % 5.9 % (0.0-8.0); MONOCYTE # 1.2 TH/MM3 (0-0.9); NEUT % 82.3 % (16.0-70.0); PLATELET COUNT 365 TH/MM3 (150-450); RED BLOOD COUNT 3.15 MIL/MM3 (4.50-5.90); RED CELL DISTRIBUTION WIDTH 18.9 % (11.6-17.2); WHITE BLOOD COUNT 20.8 TH/MM3 (4.0-11.0)
[2017-06-18 05:29] LABS: BICARBONATE 22.7 MEQ/L (21.0-32.0); CALCIUM 8.3 MG/DL (8.5-10.1); CREATININE 1.63 MG/DL (0.60-1.30)
[2017-06-18] MEDS: LEVOTHYROXINE SODIUM 25 MCG TAB PO SCH (05:51)
[2017-06-18] MEDS: metroNIDAZOLE 500 MG TAB PO SCH ×3 (05:51→21:03)
[2017-06-18] MEDS: LEVOTHYROXINE SODIUM 112 MCG TAB PO SCH (05:52)
[2017-06-18] MEDS: LINEZOLID 600 MG TAB PO SCH ×2 (05:52→18:45)
[2017-06-18 08:09] LABS: BANDS 1 % (0-6); CORRECTED NUCLEATED RBC 1 /100 WBC (0-0); LYMPHOCYTES 2 % (9-44); MONOCYTES 7 % (0-8); MYELOCYTES 1 % (0-0); NEUTROPHIL # MANUAL DIFF 17.9 TH/MM3 (1.8-7.7); NUCLEATED RED BLOOD CELL 1 (0-0); POLYS (SEG NEUTROPHILS) 84 % (16-70)
[2017-06-18] MEDS: AMIODARONE 200 MG TAB PO SCH ×2 (10:17→21:03)
[2017-06-18] MEDS: FLUCONAZOLE 100 MG TAB PO SCH (10:17)
[2017-06-18] MEDS: DIGOXIN 0.125 MG TAB PO SCH (10:17)
[2017-06-18] MEDS: CARVEDILOL 3.125 MG TAB PO SCH ×2 (10:17→21:03)
[2017-06-18] MEDS: ASPIRIN 325 MG TAB PO SCH (10:17)
[2017-06-18] MEDS: DOCUSATE SODIUM 50 MG/SENNA 8.6 MG TAB PO SCH ×2 (10:17→20:53)
[2017-06-18] MEDS: SODIUM CHLORIDE 0.9% FLUSH 10 ML FLUSH IV FLUSH SCH ×2 (10:18→20:53)
[2017-06-18] MEDS: NUTRISOURCE FIBER POWDER 1 PACK G-TUBE SCH ×2 (10:18→20:53)
[2017-06-18] MEDS: CARBAMIDE PEROXIDE 6.5% OTIC SOLN 15 ML BTL EACH EAR SCH (10:18)
[2017-06-18] MEDS: FAMOTIDINE 40 MG/5 ML LIQ 50 ML BTL NG SCH ×2 (10:18→21:00)
[2017-06-18] MEDS: prednisoLONE ACETATE 1% OPHT SUSP 5 ML BTL RIGHT EYE SCH ×2 (10:20→21:00)
[2017-06-18] MEDS: CHLORHEXIDINE 0.12% (ORAL KIT) 15 ML CUP MT SCH ×2 (10:22→20:00)
[2017-06-18] MEDS: INSULIN DETEMIR 100 UNITS/ML VIAL SQ SCH ×2 (10:38→21:03)
--- NOTE | 2017-06-18 10:39 | HHI.FPPN ---
Subjective Remarks Patient seen and examined this morning. Afebrile overnight. Intubated, on A/C, sedated. Does not respond to verbal stimuli, does not follow commands. Objective Vitals Vital Signs Date Time Temp Pulse Resp B/P (MAP) Pulse Ox O2 Delivery O2 Flow Rate FiO2 06/18/17 07:47 99 35 06/18/17 07:41 35 06/18/17 07:41 99 35 06/18/17 06:00 92 06/18/17 04:00 35 06/18/17 04:00 100 35 06/18/17 04:00 89 06/18/17 04:00 99.5 89 18 168/74 (105) 100 06/18/17 02:00 77 06/18/17 00:35 100 35 06/18/17 00:00 74 06/18/17 00:00 35 06/18/17 00:00 99.1 74 18 126/59 (81) 100 06/17/17 22:00 71 06/17/17 20:00 74 06/17/17 20:00 35 06/17/17 20:00 99.4 74 16 127/58 (81) 100 06/17/17 19:45 100 35 06/17/17 18:00 73 06/17/17 16:55 98 35 06/17/17 16:00 35 06/17/17 16:00 70 06/17/17 16:00 99.2 72 14 124/59 (80) 100 06/17/17 14:00 70 06/17/17 12:00 35 06/17/17 12:00 70 06/17/17 12:00 99.5 73 126/59 (81) 98 06/17/17 11:38 96 35 I/O 06/17/17 06/17/17 06/17/17 06/18/17 06/18/17 06/18/17 07:00 15:00 23:00 07:00 15:00 23:00 Intake Total 1165 ml 357 ml 1300 ml 1083 ml Output Total 825 ml 500 ml 950 ml Balance 340 ml 357 ml 800 ml 133 ml IV Total 674 ml 357 ml 410 ml 200 ml Tube Feeding 491 ml 640 ml 633 ml Other 250 ml 250 ml Output Urine Total 425 ml 400 ml 500 ml Stool Total 400 ml 100 ml 450 ml Result Diagram: 06/18/1739906/18/17399 Objective Remarks GENERAL: elderly man, intubated, laying in bed, sedated SKIN: scaling and dryness of right and left leg EYES: legally blind, yellow crusting of both eyes ENT: dental caries, dry crusting of lips; intubated CARDIOVASCULAR: Regular rate and rhythm RESPIRATORY: decreased breath sounds in b/l bases. intubated GASTROINTESTINAL: protuberant abdomen, BS+ MUSCULOSKELETAL: contractures of right and left hand, right great toe and fifth toe amputation, skin is erythematous, dry, several ulcers on lower extremities, covered in clean dry intact dressings NEUROLOGICAL: Sedated A/P Assessment and Plan 67 year old male with CHF (EF 35%), HTN, CKD stage 3, CAD s/p 3 vessel CABG, Afib on xarelto, HTN, HLD, DM admitted for acute infarct of posterior left MCA. Currently on empiric antibiotics due to meeting sepsis criteria. Discharge Planning Unclear timetable at this time; poor prognosis PT- return to SNF at [facility]- patient will require speech therapy after discharge OT- OT at rehab, SNF Palliative to readdress comfort care, hospice with guardian on Friday 06/16 ---> patient's guardian considering comfort care, will need list of medical problems. Working with palliative care at this time. Will need a specific list of what the guardian needs before we proceed. Problem List: (1) Anemia ICD Codes: D64.9 - Anemia, unspecified Plan: Hgb 6.1 06/16/17, currently 8.5 Status post transfusion 1 unit PRBC on 06/09 -Monitor H/H (2) Pneumonia ICD Codes: J18.9 - Pneumonia Status: Acute Plan: Sputum culture grew MRSA and E. Coli. Possibly aspiration pneumonia ID consulted-appreciate recs. -Linezolid 600 mg Q12 (06/09 - ) -Aztreonam 1g q8H (06/12 - ) -Diflucan 100 mg daily (06/14-) -Flagyl 500mg q6H (06/13 - ) ABx history -cipro/flagyl (06/07) -Started Cefepime (06-07 - 06/10 ) -Vancomycin (06/04 - 06/09) (3) Mechanically assisted ventilation ICD Codes: Z99.11 - Mechanically assisted ventilation Status: Resolved Plan: Extubated 06/05, status post cardiac arrest and return of spontaneous circulation on 06/04. Reintubated 06/07 for respiratory distress. -Continue ICU management Claims Adjuster consulted-appreciate recs -CPAP trials, continues to fail -Palliative care consulted (4) Ischemic stroke ICD Codes: I63.9 - Cerebral infarction, unspecified Status: Acute Plan: Patient presented with aphasia and left-sided weakness and mild right- sided weakness upon arrival to ED. Brain MRI demonstrated increased signal in the posterior left MCA distribution on the diffusion of weighted images characteristic of an acute or subacute infarct. Currently no mass shift or evidence hemorrhage. Carotid US: moderate visble plaque in both carotid arteries, findings suggest at least a moderate stenosis. possible significant carotid disease, though not a good candidate for further imaging of the carotids at this point Neurology consulted, recs appreciated. -Continue aspirin 325 mg PO daily -Hold Xarelto 20mg PO daily -Physical therapy (5) Sepsis ICD Codes: A41.9 - Sepsis Status: Acute Plan: ID consulted-appreciate recs -Abx per ID as above (6) Congestive heart failure ICD Codes: I50.9 - Heart failure, unspecified Status: Chronic Plan: Echo form 03/14/17 demonstrated 35% ejection fraction CXR 06/01 revealed cardiomegaly and stable compared to CXR 05/22/17, which revealed slight blunting of the left costophrenic sulcus suggesting a small left pleural effusion CXR 06/01 demonstrated moderate pulmonary vascular congestion Echo 06/01: mildly dilated LV, EF 25%, mild to moderate aortic sclerosis Echo 06/04: EF 20% -Lasix 40mg IV q8H -Monitor HR and BP -Coreg 3.125mg BID -Monitor I/Os (7) Chronic kidney disease, stage 3 ICD Codes: N18.3 - Chronic kidney disease, stage 3 (moderate) Plan: Baseline Cr. 1.3-1.5; Stable around 1.2-1.6 -Continue to monitor -Nephrology consulted, recs appreciated -Avoid nephrotoxins -Follow I/O (8) Atrial fibrillation ICD Codes: I48.91 - Atrial fibrillation Status: Chronic Plan: -Start digoxin daily -Amiodarone infusion -Xarelto 20mg PO daily (9) Hypertension ICD Codes: I10 - Hypertension Status: Chronic Plan: -Continue home meds: Coreg 6.25 mg PO q12 Losartan 50mg PO daily (10) Neurogenic bladder ICD Codes: N31.9 - Neuromuscular dysfunction of bladder, unspecified Plan: Neurogenic bladder due to stroke -Conde catheter placed (11) Hyperlipidemia ICD Codes: E78.5 - Hyperlipidemia Status: Chronic Plan: -Continue Atorvastatin 40mg PO HS (12) Hypothyroidism ICD Codes: E03.9 - Hypothyroidism, unspecified Status: Chronic Plan: -Continue Levothyroxine 112mcg PO daily (13) Diabetes ICD Codes: E11.9 - Diabetes Status: Chronic Plan: Blood sugar elevated to 400s. Added Levemir 15 on 06/14, increased to 25U q12H on 06/15, currently on Levemir 27 units twice a day -Sliding scale insulin -Held home insulin (14) Nutrition, metabolism, and development symptoms ICD Codes: R63.8 - Other symptoms and signs concerning food and fluid intake Status: Acute Plan: Fluids: Free water q8H Diet: Tube feeds Electrolytes: monitor and replace as needed DVT ppx: SCDs See the residents documentation for details. I saw and evaluated the patient regarding the lr portions of this evaluation and agree with the residents findings and plans as written. Parts of this note were created using [email or web address] voice recognition software program. While efforts were made to correct any mistakes made by this software, some mistakes, errors, and omissions may remain in the final note that were not caught when the note was originally created. Problem Qualifiers (1) Pneumonia: Qualified Codes: J15.212 - Pneumonia due to methicillin resistant Staphylococcus aureus (2) Congestive heart failure: Qualified Codes: I50.9 - Heart failure, unspecified (3) Atrial fibrillation: Qualified Codes: I48.2 - Chronic atrial fibrillation (4) Hypertension: Qualified Codes: I10 - Essential (primary) hypertension Jermaine Bell MD R1 Jun 18, 2017 10:39
--- NOTE | 2017-06-18 12:12 | HHI.HCPN ---
Reason for visit a. To assist with evaluation and management of symptoms including: dyspnea, debility, pain b. To assist medical decision maker(s) with: better understanding of current medical conditions; weighing benefits/burdens of medical treatment options; making medical treatment decisions. . (Maria Antonia Whiting) Subjective/Interval History Follow up visit for symptom management and clarification of medical treatment goals. Patient remains sedated on propofol and intubated on mechanical ventilation. Failing CPAP trials this morning due to increased respiratory rate. Heart rate 70-92 on oral amiodarone. Follow-up chest x-ray 06/16/2017 with diffuse consolidation likely related to edema/CHF which is unchanged from the prior image. Blood work from 06/18/2017: = WBC: 20.8, hemoglobin 8.5, hematocrit 26.7, platelets 385, neutrophils 82.3% = Sodium: 141, potassium 4.2, chloride 107, carbon dioxide 22.7, glucose 280, calcium 8.3 = BUN: 59, creatinine 1.63, GFR 42 Fevers resolving. Repeat sputum culture 06/07/17 + MRSA. On PO Zyvox, Azethreonam and Flagyl. Repeat sputum and blood cultures on 06/14/2017 remain negative to date. Tolerating tube feedings with Glucerna 1.5 with goal rate 45 mL per hour. Total protein: 5.9, albumin 1.5. Having persistent diarrhea, rectal tube was placed secondary to skin breakdown. C. difficile negative on 06/13/2017 Bilateral lower extremities with right great toe and fifth toe amputation. Skin is erythematous, warm to touch, dry with multiple ulcers that are covered in clean dry intact dressings. Patient has an unstageable DTI measuring 10.3cm x 13.1cm, wound bed is reportedly necrotic with mild odor. Wound care following. Goals remain aggressive up to the point of cardiopulmonary resuscitation, plan to proceed with withdrawal tomorrow 06/19/2015. Discussed patient with nurse ( Marleen), Dr. Jose and Deborah Hankins (court appointed legal guardian from [facility]).The medical team has provided a letter to the legal guardian and exhibits B and C are on the patient's chart. (Maria Antonia Whiting) Advance Directives Advance Directive Specifics Documented care wishes: No documented care wishes are available at this time. . (Maria Antonia Whiting) Objective Vital Signs Date Time Temp Pulse Resp B/P (MAP) Pulse Ox O2 Delivery O2 Flow Rate FiO2 06/18/17 10:51 99 35 06/18/17 10:48 35 06/18/17 07:47 99 35 06/18/17 07:41 35 06/18/17 07:41 99 35 06/18/17 06:00 92 06/18/17 04:00 35 06/18/17 04:00 100 35 06/18/17 04:00 89 06/18/17 04:00 99.5 89 18 168/74 (105) 100 06/18/17 02:00 77 06/18/17 00:35 100 35 06/18/17 00:00 74 06/18/17 00:00 35 06/18/17 00:00 99.1 74 18 126/59 (81) 100 06/17/17 22:00 71 06/17/17 20:00 74 06/17/17 20:00 35 06/17/17 20:00 99.4 74 16 127/58 (81) 100 06/17/17 19:45 100 35 06/17/17 18:00 73 06/17/17 16:55 98 35 06/17/17 16:00 35 06/17/17 16:00 70 06/17/17 16:00 99.2 72 14 124/59 (80) 100 06/17/17 14:00 70 06/17/17 12:00 35 06/17/17 12:00 70 06/17/17 12:00 99.5 73 126/59 (81) 98 06/17/17 11:38 96 35 Intake & Output 06/18/17 06/18/17 07:00 19:00 Intake Total 1183 ml Output Total 950 ml Balance 233 ml IV Total 300 ml Tube Feeding 633 ml Other 250 ml Output Urine Total 500 ml Stool Total 450 ml . Physical Exam CONSTITUTIONAL/GENERAL: This is a critically ill appearing male patient who is intubated on mechanical ventilation. TUBES/LINES/DRAINS: PIV, CVL, Conde catheter, ETT, NGT, soft restraints, Giselle Shield, Podus SKIN: Generalized pallor. Right great toe and fifth toe status post amputation. Skin is erythematous, warm to touch, dry with multiple ulcers that are covered in clean dry intact dressings. HEAD: Atraumatic. Normocephalic. EYES: Eyes closed. Did not attempt open ENT: Orotracheally intubated. Mucous membranes dry. Nose without bleeding or purulent drainage. CARDIOVASCULAR: Heart rate 70-92 on oral amiodarone No JVD. Peripheral pulses symmetrical RESPIRATORY/CHEST: Orotracheally intubated on mechanical ventilation, continues to fail CPAP. Breath sounds diminished bilaterally, L > R. scattered rhonchi. GASTROINTESTINAL: Tolerating artificial nutrition at goal. Abdomen is firm, non-tender. Active bowel sounds 4 quadrants. Persistent diarrhea-read if negative GENITOURINARY: Without palpable bladder distension. Urinary catheter in place. MUSCULOSKELETAL: Status post right great toe and fifth toe amputation. Small ulcers on bilateral anterior fleming. Non stageable pressure ulcer on bilateral sole, eschar left lateral foot. Bilateral lower extremities with atrophy LYMPHATICS: No palpable cervical or supraclavicular adenopathy. NEUROLOGICAL: Sedated. Does not open eyes to verbal stimuli, withdraws to pain. PSYCHIATRIC: Unable to assess due to patient's clinical condition . (Maria Antonia Whiting) Diagnostic Tests Laboratory Laboratory Tests Test 06/16/17 04:34 06/16/17 10:36 06/17/17 04:10 06/18/17 04:00 White Blood Count TH/MM3 (4.0-11.0) 12.3 TH/MM3 (4.0-11.0) 13.8 TH/MM3 (4.0-11.0) 20.8 TH/MM3 (4.0-11.0) Red Blood Count MIL/MM3 (4.50-5.90) 2.81 MIL/MM3 (4.50-5.90) 2.76 MIL/MM3 (4.50-5.90) 3.15 MIL/MM3 (4.50-5.90) Hemoglobin GM/DL (13.0-17.0) 7.6 GM/DL (13.0-17.0) 7.6 GM/DL (13.0-17.0) 8.5 GM/DL (13.0-17.0) Hematocrit % (39.0-51.0) 23.6 % (39.0-51.0) 23.5 % (39.0-51.0) 26.7 % (39.0-51.0) Mean Corpuscular Volume FL (80.0-100.0) 84.1 FL (80.0-100.0) 85.0 FL (80.0-100.0) 84.7 FL (80.0-100.0) Mean Corpuscular Hemoglobin PG (27.0-34.0) 27.0 PG (27.0-34.0) 27.4 PG (27.0-34.0) 27.1 PG (27.0-34.0) Mean Corpuscular Hemoglobin Concent % (32.0-36.0) 32.1 % (32.0-36.0) 32.2 % (32.0-36.0) 32.0 % (32.0-36.0) Red Cell Distribution Width % (11.6-17.2) 18.4 % (11.6-17.2) 19.1 % (11.6-17.2) 18.9 % (11.6-17.2) Platelet Count TH/MM3 (150-450) 344 TH/MM3 (150-450) 339 TH/MM3 (150-450) 365 TH/MM3 (150-450) Mean Platelet Volume FL (7.0-11.0) 8.5 FL (7.0-11.0) 8.4 FL (7.0-11.0) 8.5 FL (7.0-11.0) Blood Urea Nitrogen 52 MG/DL (7-18) 53 MG/DL (7-18) 59 MG/DL (7-18) Creatinine 1.48 MG/DL (0.60-1.30) 1.42 MG/DL (0.60-1.30) 1.63 MG/DL (0.60-1.30) Random Glucose 315 MG/DL (74-106) 302 MG/DL (74-106) 280 MG/DL (74-106) Total Protein 5.9 GM/DL (6.4-8.2) Calcium Level 7.4 MG/DL (8.5-10.1) 7.6 MG/DL (8.5-10.1) 8.3 MG/DL (8.5-10.1) Phosphorus Level 2.4 MG/DL (2.5-4.9) 2.9 MG/DL (2.5-4.9) Magnesium Level 1.9 MG/DL (1.5-2.5) Sodium Level 143 MEQ/L (136-145) 142 MEQ/L (136-145) 141 MEQ/L (136-145) Potassium Level 3.6 MEQ/L (3.5-5.1) 3.9 MEQ/L (3.5-5.1) 4.2 MEQ/L (3.5-5.1) Chloride Level 109 MEQ/L (98-107) 107 MEQ/L (98-107) 107 MEQ/L (98-107) Carbon Dioxide Level 24.2 MEQ/L (21.0-32.0) 25.6 MEQ/L (21.0-32.0) 22.7 MEQ/L (21.0-32.0) Anion Gap 10 MEQ/L (5-15) 9 MEQ/L (5-15) 11 MEQ/L (5-15) Estimat Glomerular Filtration Rate 47 ML/MIN (>89) 49 ML/MIN (>89) 42 ML/MIN (>89) Protein Corrected Calcium 8.1 MG/DL (8.5-10.1) B-Type Natriuretic Peptide 216 PG/ML (0-100) Neutrophils (%) (Auto) 82.3 % (16.0-70.0) Lymphocytes (%) (Auto) 7.9 % (9.0-44.0) Monocytes (%) (Auto) 5.9 % (0.0-8.0) Eosinophils (%) (Auto) 3.0 % (0.0-4.0) Basophils (%) (Auto) 0.9 % (0.0-2.0) Neutrophils # (Auto) 17.1 TH/MM3 (1.8-7.7) Lymphocytes # (Auto) 1.6 TH/MM3 (1.0-4.8) Monocytes # (Auto) 1.2 TH/MM3 (0-0.9) Eosinophils # (Auto) 0.6 TH/MM3 (0-0.4) Basophils # (Auto) 0.2 TH/MM3 (0-0.2) CBC Comment AUTO DIFF Differential Total Cells Counted 100 Neutrophils % (Manual) 84 % (16-70) Band Neutrophils % 1 % (0-6) Lymphocytes % 2 % (9-44) Monocytes % 7 % (0-8) Eosinophils % 5 % (0-4) Neutrophils # (Manual) 17.9 TH/MM3 (1.8-7.7) Myelocytes 1 % (0-0) Nucleated Red Blood Cells 1 /100 WBC (0-0) Differential Comment FINAL DIFF MANUAL Platelet Estimate NORMAL (NORMAL) Platelet Morphology Comment NORMAL (NORMAL) . (Maria Antonia Whiting) Result Diagram: 06/18/17 0400 06/18/17 0400 Imaging Last 72 hours Impressions Chest X-Ray 06/16/17 0000 Signed Impressions: Service Date/Time: Friday, June 16, 2017 08:06 - CONCLUSION: Diffuse consolidation likely related to edema/CHF. This is unchanged from the prior exam. Ap Quigley MD . Procedures 06/04/2017: PEA arrest with CPR 06/04/2017: Intubation 06/04/2017: Right femur all arterial line placement 06/04/2017: Right subclavian central line placement 06/04/2017: NGT 06/05/2017: Extubation. 06/06/2017: Reintubation . (Maria Antonia Whiting) Assessment and Plan Disease Oriented Problem List: (1) GERD (gastroesophageal reflux disease) (2) Mood disorder (3) COPD (chronic obstructive pulmonary disease) (4) Respiratory failure (5) CAD (coronary artery disease) (6) Chronic kidney disease, stage 3 (7) Atrial fibrillation (8) Hypertension (9) Diabetes (10) Hypothyroidism (11) S/P CABG x 3 Symptom Scale: (1) Dyspnea 0-10 Scale: Unable to quantify (2) Debility 0-10 Scale: Unable to quantify (3) Pain 0-10 Scale: Unable to quantify Pertinent Non-Medical Issues Psychosocial: Jensen was born in [place]. Jensen has 4 half siblings (2 of which currently live in [place]). Jensen was raised by his Aunt. 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 Per previous note, his cousin (Krista) described him as a person that is "difficult to get along with" and strong willed. Jensen enjoys watching sports; including the Yankees and Giants. Jensen also has loved records and eating sweets. Patient is a LTC resident of [facility] and will return there at discharge. Spiritual: Yazdanism rio Legal: Court appointed legal guardian as of 10/03/2015 - [facility] Deborah Hankins: [phone] (1st contact). Fernanda Bryant: [phone] Ethical issues impacting care: No known ethical issues impacting care at this time. . Important Contacts Court appointed guardianship - [employer] on aging of [facility]. Deborah Cr: [phone] (1st contact) Fernanda Bryant: [phone] . Prognosis Patient with significant debility. He is a long-term retirement resident who has been hospitalized 4 times in the past 4 months. He has multiple comorbid conditions including his recent MCA stroke, MRSA pneumonia, recurrent respiratory failure and cardiomyopathy with an EF of 25%. He remains encephalopathic status post PEA arrest with possible anoxic brain injury. Given patient's advanced age, complex medical history and baseline debility, he is at high risk for continued decline, complications and rehospitalizations. . Code Status: No Code Plan * NO CODE * [facility] community DNR completed 06/09/2017. * Decision-making: Patient does not have insight or judgment related to his medical conditions; he is not capacitated to participate in establishment of medical treatment goals nor will he regain capacity. Court appointed legal guardian as of 10/03/2015 - [facility] Deborah Hankins: [phone] (1st contact). Fernanda Bryant: [phone] * Discussed patient with nurse (Marleen), Dr. Jose and Deborah Hankins (court appointed legal guardian from [facility]) * Goals remain aggressive up to the point of cardiopulmonary resuscitation. * Plan to proceed with withdrawal tomorrow 06/19/2015. The medical team has provided a letter to the legal guardian and exhibits B and C are on the patient' s chart. Patient's nurse (Marleen) and Dr. Jose are aware. * Symptom management-debility: Patient is a resident of [facility] with plan to discharge back to previous setting. Per legal guardian, patient was maximum assist 2 to transfer from bed to wheelchair prior to hospitalization. He was able to self propel his wheelchair using his feet. * Symptom management-dyspnea: Patient was reintubated 06/05/2017. Sputum culture on 06/04/2017 growing MRSA and Escherichia coli; follow-up sputum culture on 06/07/2017 growing MRSA. 06/13/2017: Patient remains intubated and sedated on mechanical ventilation, failing CPAP trials this morning due to increased respiratory rate. Follow-up chest x-ray 06/16/2017 with diffuse consolidation likely related to edema/CHF which is unchanged from the prior image. On IV antibiotics and PRN nebulizer treatments- both Duoneb and Albuterol. * Symptom management-pain: Patient is currently sedated on propofol, showing no nonverbal signs of distress. Bilateral lower extremities are erythematous, warm to touch, dry with multiple ulcerations. Patient reportedly has an unstageable pressure ulcer on his sacrum measuring 10.3 cm x 13.1 cm. Additional factors potentially contributing to patient's pain include impaired skin integrity, impaired circulation, ETT, invasive lines, bedbound status and immobility. PRN morphine is available; patient receiving acetaminophen for elevated temperature which may assist with pain management. Continue to monitor for nonverbal signs/ symptoms of pain and adjust medications as indicated. . (Maria Antonia Whiting) Attestation To help prompt me to consider important information that might be impacting today's encounter and assessment, information from prior notes written by myself or my colleagues may have been "brought forward" into today's note. My signature on this note, however, is an attestation that I personally performed the exam, history, and/or decision-making noted today, and, unless otherwise indicated, the interactions with patient, family, and staff as well as the review of records all occurred today. I also attest that the listed assessment and stated plan reflect my best clinical judgment today based on the combination of historical information, prior notes, and today's exam/ interactions. When time spent is documented, it refers only to time spent today by the signer, or if indicated, combined time spent today by collaborating physician/nurse practitioner. . (Maria Antonia Whiting) Collaborating MD Comments Chart reviewed. Patient examined personally by me. Case discussed with MARILY Naik. Above MARILY note reviewed and I concur. Patient is currently minimally responsive, intubated, mechanically ventilated in MICU. There has been no significant improvement in clinical condition in spite of ongoing aggressive care. In my clincial opinion... 1) Patient is incapacitated and has no reasonable probability of regaining capacity. 2) He has a terminal condition. Patient's legal guardian has indicated that withholding/withdrawal of life prolonging measures would be in the patient's best interest. I have no reason to object to that choice. . . (Aurelio Walker MD) Maria Antonia Whiting Jun 18, 2017 12:12 Aurelio Walker MD Jun 18, 2017 20:27
--- NOTE | 2017-06-18 14:04 | HHI.NPPN ---
Subjective General Problems: Anemia, Edema, Hypertension Renal Failure: Chronic, Acute, Stage III History of Present Illness 67-year-old male with a past medical history of ischemic heart disease, congestive heart failure, chronic kidney disease, atrial fibrillation, chronic anemia, diabetes mellitus, hypothyroidism, and peripheral vascular disease who was admitted with a complaint of worsening shortness of breath. I was called to see the patient because of elevated BUN and creatinine. The patient has known history of chronic kidney disease and his baseline creatinine seems to be in the range of 1.3-1.5 most of the time. Additional Remarks Problems include CKD, hypoxic encephalopathy, s/p PEA arrest, s/p CVA, respiratory failure. Creatinine is slightly higher again today. On Lasix IV Q 8 hours. He has significant stool output. C.diff negative. Objective Data Data Vital Signs Date Time Temp Pulse Resp B/P (MAP) Pulse Ox O2 Delivery O2 Flow Rate FiO2 06/18/17 13:11 99 35 06/18/17 10:51 99 35 06/18/17 10:48 35 06/18/17 07:47 99 35 06/18/17 07:41 35 06/18/17 07:41 99 35 06/18/17 06:00 92 06/18/17 04:00 35 06/18/17 04:00 100 35 06/18/17 04:00 89 06/18/17 04:00 99.5 89 18 168/74 (105) 100 06/18/17 02:00 77 06/18/17 00:35 100 35 06/18/17 00:00 74 06/18/17 00:00 35 06/18/17 00:00 99.1 74 18 126/59 (81) 100 06/17/17 22:00 71 06/17/17 20:00 74 06/17/17 20:00 35 06/17/17 20:00 99.4 74 16 127/58 (81) 100 06/17/17 19:45 100 35 06/17/17 18:00 73 06/17/17 16:55 98 35 06/17/17 16:00 35 06/17/17 16:00 70 06/17/17 16:00 99.2 72 14 124/59 (80) 100 -: 06/18/17 0400 06/18/17 0400 Physical Exam Eyes Eye Exam: Pupils Equal Throat Throat Exam: Oral Mucosa [place] & Moist Neck Neck Exam: Neck Supple Pulmonary Resp Exam: Breath Sounds Equal, No Distress, Rhonchi, Decreased Bases Cardiology CV Exam: Regular, Normal Sinus Rhythm Gastrointestinal/Abdomen GI Exam: Soft, Non-Tender, Bowel Sounds Present Extremeties Extremities Exam: Trace Edema (Bilateral scalling and dryness of skin, in lower leg.) Neurologic Neuro Exam: Sedated Assessment/Plan Assessment Summary: KATERIN/Acute Renal Failure, Hypertension, CKD Stage III Problem List: (1) Acute kidney injury ICD Codes: N17.9 - Acute kidney failure, unspecified (2) Altered mental status ICD Codes: R41.82 - Altered mental status Status: Acute (3) Hx of deep venous thrombosis ICD Codes: Z86.718 - History of deep venous thrombosis Status: Chronic (4) CHF (congestive heart failure) ICD Codes: I50.9 - Congestive heart failure Status: Resolved (5) Diabetes ICD Codes: E11.9 - Diabetes Status: Chronic (6) Hypothyroidism ICD Codes: E03.9 - Hypothyroidism, unspecified Status: Chronic (7) Hypertension ICD Codes: I10 - Hypertension Status: Chronic (8) Chronic kidney disease, stage 3 ICD Codes: N18.3 - Chronic kidney disease, stage 3 (moderate) (9) Rhabdomyolysis ICD Codes: M62.82 - Rhabdomyolysis Plan Patient has been non oliguric. Has chronic kidney disease with baseline Creatinine 1.3-1.5. Most likely has chronic kidney disease due to Hypertensive or renovascular disease. Renal function is slightly worse, however, GFR may be near baseline. On Lasix 40 mg IV Q 8 hours. Avoid nephrotoxins. Prognosis is very poor. continue supportive care Cr 1.6 Patient awaiting withdrawal of life support, awaiting court order Problem Qualifiers (1) Hypertension: Qualified Codes: I10 - Essential (primary) hypertension Maricarmen Rivas MD Jun 18, 2017 14:04
--- NOTE | 2017-06-18 17:38 | HHI.CCPN ---
Subjective Remarks/Hospital Course Patient is a 67-year-old white male was admitted to the [facility] service on 05/30/17 with acute left MCA stroke with right hemiparesis. He has a past medical history significant for CHF with ejection fraction 25% (echo 06/01), Atrial fibrillation on Xarelto, chronic kidney disease stage III, rhabdomyolysis , Hypertension, Anemia, Hyperlipidemia, Diabetes Mellitus and Hypothyroidism. Apparently patient was in his regular state of health, improving right hemiparesis today am. A code blue was called overhead after the patient was found on the bed unresponsive and pulseless, which I responded immediately. CPR was started. See Code sheet for details-rhythm was pea with A. fib. Patient received 2 amp epinephrine, 1amp of bicarb. CPR continued and after total 5 min there was return of spontaneous circulation. I intubated patient during code, after return of spontaneous circulation. Patient was quickly moved to the ICU where resuscitation was continued with IV fluids boluses. I placed a right femoral arterial line for invasive cardiac/hemodynamic monitoring. As the blood pressure was trending down to low 90s systolic patient was started on Levophed infusion. I also placed a right subclavian central line. Patient remained in atrial fibrillation but blood pressure improved with map consistently above 65 with fluid resuscitation and Levophed infusion. I discussed with patient's guardian, who wants patient to be DNR, but wants to continue aggressive treatment. CT of the head is pending at this time. PE is unlikely as the patient had been on Xarelto for anticoagulation SUBJ 06/05/17: Intubated currently off sedation. Remains encephalopathic, sodium 150. Restart Lasix. Did not tolerate weaning trial due to apnea. Stat echo shows EF 20% 06/06 Reconsult: Rylie was called on floor for resp distress on arrival to [facility] [place] patient was tachycardic, tachypneic and hypoxic with sats 80's on NRB. He was subsequently intubated and placed on mechanical ventilation. Patient was given Lasix 40mg IV. 06/08 Patient remains sedated and intubated. Afebrile. Renal function is improving with Cr: 1.55 today from 1.93 06/09: Remains sedated, orally intubated on mechanical ventilation. Hemoglobin 7.2 this morning. No melena or rectal bleeding overnight per discussion with RN 06/10: Remains sedated, orally intubated on mechanical ventilation. Received 1 unit PRBCs yesterday. 06/11: Remains sedated, orally intubated on mechanical ventilation. Daily C Pap trials. 06/12: failed cpap yesterday for weakness and tachypnea. 06/13: significant stool output yesterday and overnight. wbc still elevated. febrile overnight. placed rectal tube due to significant stool causing skin breakdown. sent c. diff pcr and started flagyl iv. still failing sbt daily. overall poor prognosis. 06/14: Remains sedated, orally intubated on mechanical ventilation. Tolerating tube feeds. 06/15: Remains sedated, orally intubated on mechanical ventilation. Did not tolerate CPAP trials yesterday. 06/16: Sedated, orally intubated on mechanical ventilation. Went into A. fib with RVR this morning. Hemoglobin 6.1 on a.m. labs. One unit PRBCs ordered and repeat CBC ordered to confirm. He did have a temperature spike of 102.2 overnight. No hypotension. No melena or rectal bleeding noted overnight. 06/17: [id number]. The patient remained on amiodarone throughout the night, being transitioned to amiodarone PO this a.m. the patient continues to have elevated blood glucose level in the 300s, Levemir increased to 27 units twice a day. Hemoglobin stable this a.m.. 06/18: Creatinine worsening, leukocytosis worsening. No change in status. Discussion with palliative care, plan for possible comfort care measures to be instituted tomorrow morning. Objective Vital Signs Date Time Temp Pulse Resp B/P (MAP) Pulse Ox O2 Delivery O2 Flow Rate FiO2 06/18/17 16:03 100 35 06/18/17 06:00 92 06/18/17 04:00 99.5 18 168/74 (105) 06/14/17 19:25 Ventilator Intake and Output 06/18/17 06/18/17 06/19/17 08:00 16:00 00:00 Intake Total 1083 ml Output Total 950 ml Balance 133 ml Result Diagram: 06/18/17 0400 06/18/17 0400 Imaging Last Impressions Chest X-Ray 06/16/17 0000 Signed Impressions: Service Date/Time: Friday, June 16, 2017 08:06 - CONCLUSION: Diffuse consolidation likely related to edema/CHF. This is unchanged from the prior exam. Ap Quigley MD Abdomen X-Ray 06/05/17 0000 Signed Impressions: Service Date/Time: May 07:39 - CONCLUSION: Normal examination. The nasogastric is within the proximal stomach Desmond Hudson MD Head CT 06/04/17 0000 Signed Impressions: Service Date/Time: May 04:33 - CONCLUSION: 1. No acute intracranial abnormality seen. 2. Mild atrophy. 3. Persistent increased density within the right globe. Ap Quigley MD Head Magnetic Resonance Angiography 05/29/17 0000 Signed Impressions: Service Date/Time: May 18:31 - CONCLUSION: 1. Suboptimal exam degraded by motion as above. No definite occlusive disease. Nilson Jeffries MD Carotid Artery Ultrasound 05/29/17 0000 Signed Impressions: Service Date/Time: May 19:47 - CONCLUSION: Moderate visible plaque in both carotid arteries. Findings suggest at least a moderate stenosis. This would be better evaluated with CTA carotids. Nilson Jeffries MD Brain MRI 05/29/17 0000 Signed Impressions: Service Date/Time: May 18:31 - CONCLUSION: 1. There is increased signal in the posterior left MCA distribution on the diffusion weighted images characteristic of an acute or subacute infarct. Currently no mass shift or evidence for hemorrhage. Nilson Jeffries MD Abdomen/Pelvis CT 05/29/17 0000 Signed Impressions: Service Date/Time: May 18:10 - CONCLUSION: 1. No acute finding on CT abdomen and pelvis. 2. Calcified gallstones. 3. There is a small hiatal hernia. Distended bladder. 4. 2.3 cm lesion lower pole right kidney not clearly a cyst. Recommend renal ultrasound to assess for cyst versus solid mass. Nilson Jeffries MD Last Impressions Chest X-Ray 06/07/17 0000 Signed Impressions: Service Date/Time: Wednesday, June 07, 2017 07:19 - CONCLUSION: ET tube in good position. Juan Carvalho MD FACR Abdomen X-Ray 06/05/17 0000 Signed Impressions: Service Date/Time: May 07:39 - CONCLUSION: Normal examination. The nasogastric is within the proximal stomach Desmond Hudson MD Head CT 06/04/17 0000 Signed Impressions: Service Date/Time: May 04:33 - CONCLUSION: 1. No acute intracranial abnormality seen. 2. Mild atrophy. 3. Persistent increased density within the right globe. Ap Quigley MD Head Magnetic Resonance Angiography 05/29/17 0000 Signed Impressions: Service Date/Time: May 18:31 - CONCLUSION: 1. Suboptimal exam degraded by motion as above. No definite occlusive disease. Nilson Jeffries MD Carotid Artery Ultrasound 05/29/17 0000 Signed Impressions: Service Date/Time: May 19:47 - CONCLUSION: Moderate visible plaque in both carotid arteries. Findings suggest at least a moderate stenosis. This would be better evaluated with CTA carotids. Nilson Jeffries MD Brain MRI 05/29/17 0000 Signed Impressions: Service Date/Time: May 18:31 - CONCLUSION: 1. There is increased signal in the posterior left MCA distribution on the diffusion weighted images characteristic of an acute or subacute infarct. Currently no mass shift or evidence for hemorrhage. Nilson Jeffries MD Abdomen/Pelvis CT 05/29/17 0000 Signed Impressions: Service Date/Time: May 18:10 - CONCLUSION: 1. No acute finding on CT abdomen and pelvis. 2. Calcified gallstones. 3. There is a small hiatal hernia. Distended bladder. 4. 2.3 cm lesion lower pole right kidney not clearly a cyst. Recommend renal ultrasound to assess for cyst versus solid mass. Nilson Jeffries MD Objective Remarks GENERAL: Elderly obese male lethargic, encephalopathic EYES: legally blind per previous notes ENT: Poor dentition. Orotracheally intubated CARDIOVASCULAR: normal rate, regular rhythm. sinus by tele. RESPIRATORY: equal chest rise. prvc mode. fio2 40% GASTROINTESTINAL soft, nontender, nondistended. no guarding. MUSCULOSKELETAL: S/p right great toe and fifth toe amputation, Small ulcers on bilateral anterior fleming, Non stageable pressure ulcer on bilateral sole, eschar left lateral foot NEUROLOGICAL: Sedated, Intubated, RASS -1. Continues on low-dose propofol infusion for ventilator synchrony A/P Assessment and Plan Assessment: 67yM with encephalopathy and respiratory failure that is not improving after 2 weeks. now DNR. still no improvements and now with diarrhea and fever, concerning for infectious source. still without improvements, and may be declining again. overall poor prognosis. 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 Daily sedation vacation. RESP: Acute hypoxic respiratory failure on mechanical ventilation - Continue with vent support keep sat >92% -Bronchodilators, ICU vent bundle. - SBT daily as farzad. continues to fail daily. Last approximately 10:15 minutes CV: PEA arrest on 06/04 Cardiogenic shock-resolved Atrial fibrillation on chronic Xarelto Cardiomyopathy with EF 25% - Monitor HR and BP keep MAP>65mmHg - 2D Echo 06/01 with EF 25%. - continue lasix to 40mg iv q8h - Continue aspirin, Coreg 3.125mg BID. Not on Pk-I due to KATERIN. Will hold Xarelto in view of drop in hemoglobin on 06/16 Digoxin 0.5 mg IV stat followed by 0.125 mg by mouth daily. Amiodarone 200 mg q 12 hours GI: Diarrhea - PO pepcid - On tube feeds with Glucerna 1.5 with goal rate 45ml/hr - fiber to tube feeds : Acute on chronic Chronic kidney disease, stage III - Monitor renal function, I/O's, electrolytes replacement as needed. -Renal is following- Dr. Martin. - lasix 40mg iv q8h - Free water 250ml Q812 monitor sodium level. ID: -Pneumonia ( MRSA, E.coli) Sputum 06/04: MRSA, E.coli - Continue abx per ID ( Vanco, Cefepime stopped on 06/09). Started on Zyvox per ID. On aztreonam, Diflucan per ID HEME: - Monitor CBC, 1 unit PRBCs ordered for Hgb 7.2 on 06/09. One unit PRBCs ordered for hemoglobin 6.1-> 7.6 stable ENDO: Hypothyroidism. - Sliding-scale insulin for glycemic control -Continue Synthroid. TSH: 1.2 PROPH: - Bilateral lower extremity SCDs. On hold Avis MSK: - Wound care consulted for bilateral sole pressure ulcer, eschar L lateral feet LINES: - Right subclavian central line placed 06/04/17 Palliative care following to assist with deciding goals of therapy. CODE STATUS DNR Dispo: Level 3 Discussed with BACK UP WORKER at bedside (Marleen), palliative care sports team marketing intern Ms. Maria Antonia Gay. Tentative plan for initiation of comfort care measures/ ventilator withdrawal in a.m.. Physician Krista Sawyer MD Jun 18, 2017 17:38
[2017-06-18] MEDS: ATORVASTATIN 40 MG TAB PO SCH (21:03)
[2017-06-19] VITALS (12 sets, daily range): BP systolic 133–150; BP diastolic 63–65; PULSE 79–101; RESP 18–19; TEMP 100–100.6; O2SAT 78–100
[2017-06-19] MEDS: FUROSEMIDE 40 MG/4 ML VIAL IV PUSH SCH ×2 (01:00→08:03)
[2017-06-19] MEDS: AZTREONAM INJ 1,000 MG in SODIUM CHLORIDE 0.9% INJ 100 ML IV SCH ×2 (01:03→07:53)
[2017-06-19] MEDS: FREE WATER G-TUBE SCH (02:00)
[2017-06-19] MEDS: INSULIN NovoLIN REGULAR SUPPLEMENTAL SCALE SQ SCH ×3 (04:34→07:59)
[2017-06-19] MEDS: PROPOFOL 1000 MG/100 ML INJ 100 ML IV PRN (04:35)
[2017-06-19 06:08] LABS: BICARBONATE 24.1 MEQ/L (21.0-32.0); CALCIUM 6.9 MG/DL (8.5-10.1); CREATININE 1.68 MG/DL (0.60-1.30)
[2017-06-19] MEDS: LEVOTHYROXINE SODIUM 25 MCG TAB PO SCH (06:20)
[2017-06-19] MEDS: LEVOTHYROXINE SODIUM 112 MCG TAB PO SCH (06:20)
[2017-06-19] MEDS: LINEZOLID 600 MG TAB PO SCH (06:20)
[2017-06-19] MEDS: metroNIDAZOLE 500 MG TAB PO SCH (06:20)
[2017-06-19 06:21] LABS: CALCIUM-PROTEIN CORRECTED 8.6 MG/DL (8.5-10.1)
[2017-06-19] MEDS: CHLORHEXIDINE 0.12% (ORAL KIT) 15 ML CUP MT SCH (07:52)
[2017-06-19] MEDS: AMIODARONE 200 MG TAB PO SCH (07:53)
[2017-06-19] MEDS: FLUCONAZOLE 100 MG TAB PO SCH (07:53)
[2017-06-19] MEDS: NUTRISOURCE FIBER POWDER 1 PACK G-TUBE SCH (07:53)
[2017-06-19] MEDS: ASPIRIN 325 MG TAB PO SCH (07:54)
[2017-06-19] MEDS: DIGOXIN 0.125 MG TAB PO SCH (07:54)
[2017-06-19] MEDS: CARVEDILOL 3.125 MG TAB PO SCH (07:54)
[2017-06-19] MEDS: FAMOTIDINE 40 MG/5 ML LIQ 50 ML BTL NG SCH (07:57)
[2017-06-19] MEDS: CARBAMIDE PEROXIDE 6.5% OTIC SOLN 15 ML BTL EACH EAR SCH (07:57)
[2017-06-19] MEDS: SODIUM CHLORIDE 0.9% FLUSH 10 ML FLUSH IV FLUSH SCH (07:57)
[2017-06-19] MEDS: DOCUSATE SODIUM 50 MG/SENNA 8.6 MG TAB PO SCH (07:58)
[2017-06-19] MEDS: INSULIN DETEMIR 100 UNITS/ML VIAL SQ SCH (07:58)
[2017-06-19] MEDS: prednisoLONE ACETATE 1% OPHT SUSP 5 ML BTL RIGHT EYE SCH (07:58)
--- NOTE | 2017-06-19 09:41 | HHI.CCPN ---
Subjective Remarks/Hospital Course Patient is a 67-year-old white male was admitted to the [facility] service on 05/30/17 with acute left MCA stroke with right hemiparesis. He has a past medical history significant for CHF with ejection fraction 25% (echo 06/01), Atrial fibrillation on Xarelto, chronic kidney disease stage III, rhabdomyolysis , Hypertension, Anemia, Hyperlipidemia, Diabetes Mellitus and Hypothyroidism. Apparently patient was in his regular state of health, improving right hemiparesis today am. A code blue was called overhead after the patient was found on the bed unresponsive and pulseless, which I responded immediately. CPR was started. See Code sheet for details-rhythm was pea with A. fib. Patient received 2 amp epinephrine, 1amp of bicarb. CPR continued and after total 5 min there was return of spontaneous circulation. I intubated patient during code, after return of spontaneous circulation. Patient was quickly moved to the ICU where resuscitation was continued with IV fluids boluses. I placed a right femoral arterial line for invasive cardiac/hemodynamic monitoring. As the blood pressure was trending down to low 90s systolic patient was started on Levophed infusion. I also placed a right subclavian central line. Patient remained in atrial fibrillation but blood pressure improved with map consistently above 65 with fluid resuscitation and Levophed infusion. I discussed with patient's guardian, who wants patient to be DNR, but wants to continue aggressive treatment. CT of the head is pending at this time. PE is unlikely as the patient had been on Xarelto for anticoagulation SUBJ 06/05/17: Intubated currently off sedation. Remains encephalopathic, sodium 150. Restart Lasix. Did not tolerate weaning trial due to apnea. Stat echo shows EF 20% 06/06 Reconsult: Rylie was called on floor for resp distress on arrival to [facility] [place] patient was tachycardic, tachypneic and hypoxic with sats 80's on NRB. He was subsequently intubated and placed on mechanical ventilation. Patient was given Lasix 40mg IV. 06/08 Patient remains sedated and intubated. Afebrile. Renal function is improving with Cr: 1.55 today from 1.93 06/09: Remains sedated, orally intubated on mechanical ventilation. Hemoglobin 7.2 this morning. No melena or rectal bleeding overnight per discussion with RN 06/10: Remains sedated, orally intubated on mechanical ventilation. Received 1 unit PRBCs yesterday. 06/11: Remains sedated, orally intubated on mechanical ventilation. Daily C Pap trials. 06/12: failed cpap yesterday for weakness and tachypnea. 06/13: significant stool output yesterday and overnight. wbc still elevated. febrile overnight. placed rectal tube due to significant stool causing skin breakdown. sent c. diff pcr and started flagyl iv. still failing sbt daily. overall poor prognosis. 06/14: Remains sedated, orally intubated on mechanical ventilation. Tolerating tube feeds. 06/15: Remains sedated, orally intubated on mechanical ventilation. Did not tolerate CPAP trials yesterday. 06/16: Sedated, orally intubated on mechanical ventilation. Went into A. fib with RVR this morning. Hemoglobin 6.1 on a.m. labs. One unit PRBCs ordered and repeat CBC ordered to confirm. He did have a temperature spike of 102.2 overnight. No hypotension. No melena or rectal bleeding noted overnight. 06/17: [id number]. The patient remained on amiodarone throughout the night, being transitioned to amiodarone PO this a.m. the patient continues to have elevated blood glucose level in the 300s, Levemir increased to 27 units twice a day. Hemoglobin stable this a.m.. 06/18: Creatinine worsening, leukocytosis worsening. No change in status. Discussion with palliative care, plan for possible comfort care measures to be instituted tomorrow morning. 06/19: Patient remains sedated on mechanical ventilation. Not tolerating CPAP trials. Comfort care measures to be instituted this a.m.. Objective Vital Signs Date Time Temp Pulse Resp B/P (MAP) Pulse Ox O2 Delivery O2 Flow Rate FiO2 06/19/17 08:00 87 06/19/17 08:00 35 06/19/17 08:00 100.0 19 150/65 (93) 100 Intake and Output 06/19/17 06/19/17 06/20/17 08:00 16:00 00:00 Intake Total 1311 ml Output Total 1000 ml Balance 311 ml Result Diagram: 06/18/17 0400 06/19/17 0447 Imaging Last Impressions Chest X-Ray 06/16/17 0000 Signed Impressions: Service Date/Time: Friday, June 16, 2017 08:06 - CONCLUSION: Diffuse consolidation likely related to edema/CHF. This is unchanged from the prior exam. Ap Quigley MD Abdomen X-Ray 06/05/17 0000 Signed Impressions: Service Date/Time: May 07:39 - CONCLUSION: Normal examination. The nasogastric is within the proximal stomach Desmond Hudson MD Head CT 06/04/17 0000 Signed Impressions: Service Date/Time: May 04:33 - CONCLUSION: 1. No acute intracranial abnormality seen. 2. Mild atrophy. 3. Persistent increased density within the right globe. Ap Quigley MD Head Magnetic Resonance Angiography 05/29/17 0000 Signed Impressions: Service Date/Time: May 18:31 - CONCLUSION: 1. Suboptimal exam degraded by motion as above. No definite occlusive disease. Nilson Jeffries MD Carotid Artery Ultrasound 05/29/17 0000 Signed Impressions: Service Date/Time: May 19:47 - CONCLUSION: Moderate visible plaque in both carotid arteries. Findings suggest at least a moderate stenosis. This would be better evaluated with CTA carotids. Nilson Jeffries MD Brain MRI 05/29/17 0000 Signed Impressions: Service Date/Time: May 18:31 - CONCLUSION: 1. There is increased signal in the posterior left MCA distribution on the diffusion weighted images characteristic of an acute or subacute infarct. Currently no mass shift or evidence for hemorrhage. Nilson Jeffries MD Abdomen/Pelvis CT 05/29/17 0000 Signed Impressions: Service Date/Time: May 18:10 - CONCLUSION: 1. No acute finding on CT abdomen and pelvis. 2. Calcified gallstones. 3. There is a small hiatal hernia. Distended bladder. 4. 2.3 cm lesion lower pole right kidney not clearly a cyst. Recommend renal ultrasound to assess for cyst versus solid mass. Nilson Jeffries MD Last Impressions Chest X-Ray 06/07/17 0000 Signed Impressions: Service Date/Time: Wednesday, June 07, 2017 07:19 - CONCLUSION: ET tube in good position. Juan Carvalho MD FACR Abdomen X-Ray 06/05/17 0000 Signed Impressions: Service Date/Time: May 07:39 - CONCLUSION: Normal examination. The nasogastric is within the proximal stomach Desmond Hudson MD Head CT 06/04/17 0000 Signed Impressions: Service Date/Time: May 04:33 - CONCLUSION: 1. No acute intracranial abnormality seen. 2. Mild atrophy. 3. Persistent increased density within the right globe. Ap Quigley MD Head Magnetic Resonance Angiography 05/29/17 0000 Signed Impressions: Service Date/Time: May 18:31 - CONCLUSION: 1. Suboptimal exam degraded by motion as above. No definite occlusive disease. Nilson Jeffries MD Carotid Artery Ultrasound 05/29/17 Signed Impressions: Service Date/Time: May 19:47 - CONCLUSION: Moderate visible plaque in both carotid arteries. Findings suggest at least a moderate stenosis. This would be better evaluated with CTA carotids. Nilson Jeffries MD Brain MRI 05/29/17 0000 Signed Impressions: Service Date/Time: May 18:31 - CONCLUSION: 1. There is increased signal in the posterior left MCA distribution on the diffusion weighted images characteristic of an acute or subacute infarct. Currently no mass shift or evidence for hemorrhage. Nilson Jeffries MD Abdomen/Pelvis CT 05/29/17 0000 Signed Impressions: Service Date/Time: May 18:10 - CONCLUSION: 1. No acute finding on CT abdomen and pelvis. 2. Calcified gallstones. 3. There is a small hiatal hernia. Distended bladder. 4. 2.3 cm lesion lower pole right kidney not clearly a cyst. Recommend renal ultrasound to assess for cyst versus solid mass. Nilson Jeffries MD Objective Remarks GENERAL: Elderly obese male lethargic, encephalopathic EYES: legally blind per previous notes ENT: Poor dentition. Orotracheally intubated CARDIOVASCULAR: normal rate, regular rhythm. sinus by tele. RESPIRATORY: equal chest rise. prvc mode. fio2 40%. Scattered coarse rhonchi GASTROINTESTINAL soft, nontender, nondistended. no guarding. MUSCULOSKELETAL: S/p right great toe and fifth toe amputation, Small ulcers on bilateral anterior fleming, Non stageable pressure ulcer on bilateral sole, eschar left lateral foot NEUROLOGICAL: Sedated, Intubated, RASS -1. Continues on low-dose propofol infusion for ventilator synchrony A/P Assessment and Plan Assessment: 67yM with encephalopathy and respiratory failure that is not improving after 2 weeks. now DNR. still no improvements and now with diarrhea and fever, concerning for infectious source. still without improvements, and may be declining again. overall poor prognosis. 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 Daily sedation vacation. RESP: Acute hypoxic respiratory failure on mechanical ventilation - Continue with vent support keep sat >92% -Bronchodilators, ICU vent bundle. - SBT daily as farzad. continues to fail daily. Last approximately 10:15 minutes CV: PEA arrest on 06/04 Cardiogenic shock-resolved Atrial fibrillation on chronic Xarelto Cardiomyopathy with EF 25% - Monitor HR and BP keep MAP>65mmHg - 2D Echo 06/01 with EF 25%. - continue lasix to 40mg iv q8h - Continue aspirin, Coreg 3.125mg BID. Not on Pk-I due to KATERIN. Will hold Xarelto in view of drop in hemoglobin on 06/16 Digoxin 0.5 mg IV stat followed by 0.125 mg by mouth daily. Amiodarone 200 mg q 12 hours GI: Diarrhea - PO pepcid - On tube feeds with Glucerna 1.5 with goal rate 45ml/hr - fiber to tube feeds : Acute on chronic Chronic kidney disease, stage III - Monitor renal function, I/O's, electrolytes replacement as needed. -Renal is following- Dr. Martin. - lasix 40mg iv q8h - Free water 250ml Q812 monitor sodium level. ID: -Pneumonia ( MRSA, E.coli) Sputum 06/04: MRSA, E.coli - Continue abx per ID ( Vanco, Cefepime stopped on 06/09). Started on Zyvox per ID. On aztreonam, Diflucan per ID HEME: - Monitor CBC, 1 unit PRBCs ordered for Hgb 7.2 on 06/09. One unit PRBCs ordered for hemoglobin 6.1-> 7.6 stable ENDO: Hypothyroidism. - Sliding-scale insulin for glycemic control -Continue Synthroid. TSH: 1.2 PROPH: - Bilateral lower extremity SCDs. On hold Cyndiereljaron MSK: - Wound care consulted for bilateral sole pressure ulcer, eschar L lateral feet LINES: - Right subclavian central line placed 06/04/17 Palliative care following to assist with deciding goals of therapy. CODE STATUS DNR Dispo: Level 3 Discussed with HULL SORTER at bedside (Marleen), palliative care steam trap worker Ms. Maria Antonia Gay. Awaiting court-appointed guardian plan for initiation of comfort care measures/ventilator withdrawal today. Physician Krista Sawyer MD Jun 19, 2017 09:41
[2017-06-19] MEDS ORDERED: LORazepam 2 MG/ML VIAL IV PUSH PRN ×3 (10:00→10:30)
[2017-06-19] MEDS ORDERED: fentaNYL DRIP 250 ML IV PRN (10:00)
[2017-06-19] MEDS ORDERED: FUROSEMIDE 20 MG/2 ML VIAL IV PUSH PRN (10:30)
[2017-06-19] MEDS ORDERED: LORazepam 2 MG/ML VIAL IV PUSH ONE ×2 (10:30→10:45)
[2017-06-19] MEDS ORDERED: HYOSCYAMINE 0.5 MG/ML AMP IV PUSH PRN (10:30)
[2017-06-19] MEDS ORDERED: BISACODYL 10 MG SUPP RECTAL PRN (10:30)
[2017-06-19] MEDS ORDERED: MORPHINE SULFATE 2 MG/ML INJ IV PUSH ONE ×2 (10:45→11:00)
[2017-06-19] MEDS ORDERED: HYOSCYAMINE 0.5 MG/ML AMP IV PUSH ONE (10:45)
[2017-06-19] MEDS ORDERED: MORPHINE SULFATE 2 MG/ML INJ IV PUSH PRN ×2 (10:45→11:00)
--- NOTE | 2017-06-19 10:45 | HHI.HCPN ---
Reason for visit a. To assist with evaluation and management of symptoms including: dyspnea, debility, pain b. To assist medical decision maker(s) with: better understanding of current medical conditions; weighing benefits/burdens of medical treatment options; making medical treatment decisions. . Subjective/Interval History Follow up visit for symptom management and clarification of medical treatment goals. Patient remains sedated on propofol and intubated on mechanical ventilation. He continues to fail CPAP trials. Follow-up chest x-ray 06/16/2017 with diffuse consolidation likely related to edema/CHF which is unchanged from the prior image. T-max overnight at 100.6. Repeat sputum culture 06/07/17 + MRSA. On PO Zyvox, Azethreonam and Flagyl. Repeat sputum and blood cultures on 06/14/2017 remain negative to date. C. difficile negative on 06/13/2017 Bilateral lower extremities with right great toe and fifth toe amputation. Skin is erythematous, warm to touch, dry with multiple ulcers that are covered in clean dry intact dressings. Patient has an unstageable DTI measuring 10.3cm x 13.1cm, wound bed is reportedly necrotic with mild odor. Wound care following. Court-appointed guardian plans for initiation of comfort care measures/ ventilator withdrawal today. Signed exhibits or on the patient's chart. Comfort medications have been ordered. . Advance Directives Advance Directive Specifics Documented care wishes: No documented care wishes are available at this time. . Significant change in goals: Court-appointed guardian plan for initiation of comfort care measures/ ventilator withdrawal today. . Objective Vital Signs Date Time Temp Pulse Resp B/P (MAP) Pulse Ox O2 Delivery O2 Flow Rate FiO2 06/19/17 08:00 87 06/19/17 08:00 35 06/19/17 08:00 100.0 87 19 150/65 (93) 100 06/19/17 07:42 100 35 06/19/17 06:00 85 06/19/17 04:00 35 06/19/17 04:00 85 06/19/17 04:00 100.6 82 18 137/63 (87) 100 06/19/17 03:18 100 35 06/19/17 02:00 83 06/19/17 00:00 100.3 83 18 133/63 (86) 100 06/19/17 00:00 35 06/19/17 00:00 83 06/18/17 23:23 100 35 06/18/17 22:00 83 06/18/17 20:51 100 35 06/18/17 20:00 100.3 87 18 160/72 (101) 100 06/18/17 20:00 35 06/18/17 20:00 83 06/18/17 18:00 86 06/18/17 16:03 100 35 06/18/17 16:00 99.1 89 18 159/69 (99) 100 06/18/17 16:00 89 06/18/17 16:00 35 06/18/17 14:00 85 06/18/17 13:11 99 35 06/18/17 12:00 35 06/18/17 12:00 99.3 85 18 155/69 (97) 100 06/18/17 12:00 85 06/18/17 10:51 99 35 06/18/17 10:48 35 Intake & Output 06/19/17 06/19/17 07:00 19:00 Intake Total 1411 ml Output Total 1050 ml Balance 361 ml Tube Feeding 1111 ml Other 300 ml Output Urine Total 1000 ml Stool Total 50 ml # Bowel Movements 1 . Physical Exam CONSTITUTIONAL/GENERAL: This is a critically ill appearing male patient who is intubated on mechanical ventilation, not tolerating CPAP trials TUBES/LINES/DRAINS: PIV, CVL, Conde catheter, ETT, NGT, soft restraints, Giselle Shield, Podus SKIN: Generalized pallor. Right great toe and fifth toe status post amputation. Skin is erythematous, warm to touch, dry with multiple ulcers that are covered in clean dry intact dressings. HEAD: Atraumatic. Normocephalic. EYES: Eyes closed. Did not attempt open ENT: Orotracheally intubated. Mucous membranes dry. Nose without bleeding or purulent drainage. CARDIOVASCULAR: Regular rate and rhythm on oral amiodarone No JVD. Peripheral pulses symmetrical RESPIRATORY/CHEST: Orotracheally intubated on mechanical ventilation, continues to fail CPAP. Breath sounds diminished bilaterally, scattered rhonchi GASTROINTESTINAL: Tolerating artificial nutrition at goal. Abdomen is firm, non-tender. Active bowel sounds 4 quadrants. Persistent diarrhea-C. difficile negative GENITOURINARY: Without palpable bladder distension. Urinary catheter in place. MUSCULOSKELETAL: Status post right great toe and fifth toe amputation. Small ulcers on bilateral anterior fleming. Non stageable pressure ulcer on bilateral sole, eschar left lateral foot. Bilateral lower extremities with atrophy LYMPHATICS: No palpable cervical or supraclavicular adenopathy. NEUROLOGICAL: Sedated and intubated. Continues on low-dose propofol infusion for ventilator synchrony. PSYCHIATRIC: Unable to assess due to patient's clinical condition . Diagnostic Tests Laboratory Laboratory Tests Test 06/17/17 04:10 06/18/17 04:00 06/19/17 04:47 06/19/17 06:40 White Blood Count 13.8 TH/MM3 (4.0-11.0) 20.8 TH/MM3 (4.0-11.0) Red Blood Count 2.76 MIL/MM3 (4.50-5.90) 3.15 MIL/MM3 (4.50-5.90) Hemoglobin 7.6 GM/DL (13.0-17.0) 8.5 GM/DL (13.0-17.0) Hematocrit 23.5 % (39.0-51.0) 26.7 % (39.0-51.0) Mean Corpuscular Volume 85.0 FL (80.0-100.0) 84.7 FL (80.0-100.0) Mean Corpuscular Hemoglobin 27.4 PG (27.0-34.0) 27.1 PG (27.0-34.0) Mean Corpuscular Hemoglobin Concent 32.2 % (32.0-36.0) 32.0 % (32.0-36.0) Red Cell Distribution Width 19.1 % (11.6-17.2) 18.9 % (11.6-17.2) Platelet Count 339 TH/MM3 (150-450) 365 TH/MM3 (150-450) Mean Platelet Volume 8.4 FL (7.0-11.0) 8.5 FL (7.0-11.0) Blood Urea Nitrogen 53 MG/DL (7-18) 59 MG/DL (7-18) 67 MG/DL (7-18) Creatinine 1.42 MG/DL (0.60-1.30) 1.63 MG/DL (0.60-1.30) 1.68 MG/DL (0.60-1.30) Random Glucose 302 MG/DL (74-106) 280 MG/DL (74-106) 319 MG/DL (74-106) Calcium Level 7.6 MG/DL (8.5-10.1) 8.3 MG/DL (8.5-10.1) 6.9 MG/DL (8.5-10.1) Phosphorus Level 2.9 MG/DL (2.5-4.9) Sodium Level 142 MEQ/L (136-145) 141 MEQ/L (136-145) 148 MEQ/L (136-145) Potassium Level 3.9 MEQ/L (3.5-5.1) 4.2 MEQ/L (3.5-5.1) 4.8 MEQ/L (3.5-5.1) Chloride Level 107 MEQ/L (98-107) 107 MEQ/L (98-107) 114 MEQ/L (98-107) Carbon Dioxide Level 25.6 MEQ/L (21.0-32.0) 22.7 MEQ/L (21.0-32.0) 24.1 MEQ/L (21.0-32.0) Anion Gap 9 MEQ/L (5-15) 11 MEQ/L (5-15) 10 MEQ/L (5-15) Estimat Glomerular Filtration Rate 49 ML/MIN (>89) 42 ML/MIN (>89) 41 ML/MIN (>89) Neutrophils (%) (Auto) 82.3 % (16.0-70.0) Lymphocytes (%) (Auto) 7.9 % (9.0-44.0) Monocytes (%) (Auto) 5.9 % (0.0-8.0) Eosinophils (%) (Auto) 3.0 % (0.0-4.0) Basophils (%) (Auto) 0.9 % (0.0-2.0) Neutrophils # (Auto) 17.1 TH/MM3 (1.8-7.7) Lymphocytes # (Auto) 1.6 TH/MM3 (1.0-4.8) Monocytes # (Auto) 1.2 TH/MM3 (0-0.9) Eosinophils # (Auto) 0.6 TH/MM3 (0-0.4) Basophils # (Auto) 0.2 TH/MM3 (0-0.2) CBC Comment AUTO DIFF Differential Total Cells Counted 100 Neutrophils % (Manual) 84 % (16-70) Band Neutrophils % 1 % (0-6) Lymphocytes % 2 % (9-44) Monocytes % 7 % (0-8) Eosinophils % 5 % (0-4) Neutrophils # (Manual) 17.9 TH/MM3 (1.8-7.7) Myelocytes 1 % (0-0) Nucleated Red Blood Cells 1 /100 WBC (0-0) Differential Comment FINAL DIFF MANUAL Platelet Estimate NORMAL (NORMAL) Platelet Morphology Comment NORMAL (NORMAL) Total Protein 4.0 GM/DL (6.4-8.2) Protein Corrected Calcium 8.6 MG/DL (8.5-10.1) . Result Diagram: 06/18/17 0400 06/19/17 0447 Procedures 06/04/2017: PEA arrest with CPR 06/04/2017: Intubation 06/04/2017: Right femur all arterial line placement 06/04/2017: Right subclavian central line placement 06/04/2017: NGT 06/05/2017: Extubation. 06/06/2017: Reintubation . Assessment and Plan Disease Oriented Problem List: (1) GERD (gastroesophageal reflux disease) (2) Mood disorder (3) COPD (chronic obstructive pulmonary disease) (4) Respiratory failure (5) CAD (coronary artery disease) (6) Chronic kidney disease, stage 3 (7) Atrial fibrillation (8) Hypertension (9) Diabetes (10) Hypothyroidism (11) S/P CABG x 3 Symptom Scale: (1) Dyspnea 0-10 Scale: Unable to quantify (2) Debility 0-10 Scale: Unable to quantify (3) Pain 0-10 Scale: Unable to quantify Pertinent Non-Medical Issues Psychosocial: Jensen was born in [place]. Jensen has 4 half siblings (2 of which currently live in [place]). Jensen was raised by his Aunt. 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 Per previous note, his cousin (Krista) described him as a person that is "difficult to get along with" and strong willed. Jensen enjoys watching sports; including the [employer] and [employer]. Jensen also has loved records and eating sweets. Patient is a LTC resident of [facility] and will return there at discharge. Spiritual: [employer] Legal: Court appointed legal guardian as of 10/03/2015 - [facility] Deborah Cr: [phone] (1st contact). Fernanda Bryant: [phone] Ethical issues impacting care: No known ethical issues impacting care at this time. . Important Contacts Court appointed guardianship - [facility] on [facility] of [facility]. Deborah Hankins: [phone] (1st contact) Fernanda Bryant: [phone] . Prognosis Patient with significant debility. He is a long-term retirement resident who has been hospitalized 4 times in the past 4 months. He has multiple comorbid conditions including his recent MCA stroke, MRSA pneumonia, recurrent respiratory failure and cardiomyopathy with an EF of 25%. He remains encephalopathic status post PEA arrest with possible anoxic brain injury. Given patient's advanced age, complex medical history and baseline debility, he is at high risk for continued decline, complications and rehospitalizations. . Code Status: No Code Plan * NO CODE * [facility] community DNR completed 06/09/2017. * Decision-making: Patient does not have insight or judgment related to his medical conditions; he is not capacitated to participate in establishment of medical treatment goals nor will he regain capacity. Court appointed legal guardian as of 10/03/2015 - [facility] Deborah Cr: [phone] (1st contact). Fernanda Bryant: [phone] * Discussed patient with nurse (Marleen), Dr. Jose and Deborah Hankins (court appointed legal guardian from [facility]) * Court-appointed guardian plans for initiation of comfort care measures/ ventilator withdrawal today. Signed exhibits or on the patient's chart. Comfort medications have been ordered. * Symptom management-debility: Patient is a resident of [facility] with plan to discharge back to previous setting. Per legal guardian, patient was maximum assist 2 to transfer from bed to wheelchair prior to hospitalization. He was able to self propel his wheelchair using his feet. * Symptom management-dyspnea: Patient was reintubated 06/05/2017. Sputum culture on 06/04/2017 growing MRSA and Escherichia coli; follow-up sputum culture on 06/07/2017 growing MRSA. 06/13/2017: Patient remains intubated and sedated on mechanical ventilation, failing CPAP trials this morning due to increased respiratory rate. Follow-up chest x-ray 06/16/2017 with diffuse consolidation likely related to edema/CHF which is unchanged from the prior image. On IV antibiotics and PRN nebulizer treatments- both Duoneb and Albuterol. * Symptom management-pain: Patient is currently sedated on propofol, showing no nonverbal signs of distress. Bilateral lower extremities are erythematous, warm to touch, dry with multiple ulcerations. Patient reportedly has an unstageable pressure ulcer on his sacrum measuring 10.3 cm x 13.1 cm. Additional factors potentially contributing to patient's pain include impaired skin integrity, impaired circulation, ETT, invasive lines, bedbound status and immobility. PRN morphine is available; patient receiving acetaminophen for elevated temperature which may assist with pain management. Continue to monitor for nonverbal signs/ symptoms of pain and adjust medications as indicated. * Addendum: Hospice consult ordered 06/19/2017 at 1459 . Attestation To help prompt me to consider important information that might be impacting today's encounter and assessment, information from prior notes written by myself or my colleagues may have been "brought forward" into today's note. My signature on this note, however, is an attestation that I personally performed the exam, history, and/or decision-making noted today, and, unless otherwise indicated, the interactions with patient, family, and staff as well as the review of records all occurred today. I also attest that the listed assessment and stated plan reflect my best clinical judgment today based on the combination of historical information, prior notes, and today's exam/ interactions. When time spent is documented, it refers only to time spent today by the signer, or if indicated, combined time spent today by collaborating physician/nurse practitioner. . Maria Antonia Whiting Jun 19, 2017 10:45
--- NOTE | 2017-06-19 11:54 | HHI.FPPN ---
Subjective Remarks Ration seen and examined today. Currently intubated, sedated. Opened eyes to painful stimuli. Does not follow commands. Objective Vitals Vital Signs Date Time Temp Pulse Resp B/P (MAP) Pulse Ox O2 Delivery O2 Flow Rate FiO2 06/19/17 08:00 87 06/19/17 08:00 35 06/19/17 08:00 100.0 87 19 150/65 (93) 100 06/19/17 07:42 100 35 06/19/17 06:00 85 06/19/17 04:00 35 06/19/17 04:00 85 06/19/17 04:00 100.6 82 18 137/63 (87) 100 06/19/17 03:18 100 35 06/19/17 02:00 83 06/19/17 00:00 100.3 83 18 133/63 (86) 100 06/19/17 00:00 35 06/19/17 00:00 83 06/18/17 23:23 100 35 06/18/17 22:00 83 06/18/17 20:51 100 35 06/18/17 20:00 100.3 87 18 160/72 (101) 100 06/18/17 20:00 35 06/18/17 20:00 83 06/18/17 18:00 86 06/18/17 16:03 100 35 06/18/17 16:00 99.1 89 18 159/69 (99) 100 06/18/17 16:00 89 06/18/17 16:00 35 06/18/17 14:00 85 06/18/17 13:11 99 35 06/18/17 12:00 35 06/18/17 12:00 99.3 85 18 155/69 (97) 100 06/18/17 12:00 85 I/O 06/18/17 06/18/17 06/18/17 06/19/17 06/19/17 06/19/17 06:59 14:59 22:59 06:59 14:59 22:59 Intake Total 1083 ml 100 ml 1311 ml Output Total 950 ml 50 ml 1000 ml Balance 133 ml 50 ml 311 ml IV Total 200 ml Tube Feeding 633 ml 1111 ml Other 250 ml 100 ml 200 ml Output Urine Total 500 ml 1000 ml Stool Total 450 ml 50 ml # Bowel Movements 1 Result Diagram: 06/18/17 0400 06/19/17 0447 Objective Remarks GENERAL: elderly man, intubated, laying in bed, sedated SKIN: scaling and dryness of right and left leg EYES: legally blind, yellow crusting of both eyes ENT: dental caries, dry crusting of lips; intubated CARDIOVASCULAR: Regular rate and rhythm RESPIRATORY: decreased breath sounds in b/l bases. intubated GASTROINTESTINAL: protuberant abdomen, BS+ MUSCULOSKELETAL: contractures of right and left hand, right great toe and fifth toe amputation, skin is erythematous, dry, several ulcers on lower extremities, covered in clean dry intact dressings NEUROLOGICAL: Sedated A/P Assessment and Plan 67 year old male with CHF (EF 35%), HTN, CKD stage 3, CAD s/p 3 vessel CABG, Afib on xarelto, HTN, HLD, DM admitted for acute infarct of posterior left MCA. Currently on empiric antibiotics due to meeting sepsis criteria. Discharge Planning Unclear timetable at this time; poor prognosis PT- return to SNF at [facility]- patient will require speech therapy after discharge OT- OT at rehab, SNF Palliative to readdress comfort care, hospice with guardian on Friday 06/16 ---> To extubate today Problem List: (1) Anemia ICD Codes: D64.9 - Anemia, unspecified Plan: Hgb 6.1 06/16/17, currently 8.5 Status post transfusion 1 unit PRBC on 06/09 -Monitor H/H (2) Pneumonia ICD Codes: J18.9 - Pneumonia Status: Acute Plan: Sputum culture grew MRSA and E. Coli. Possibly aspiration pneumonia ID consulted-appreciate recs. -Linezolid 600 mg Q12 (06/09 - ) -Aztreonam 1g q8H (06/12 - ) -Diflucan 100 mg daily (06/14-) -Flagyl 500mg q6H (06/13 - ) ABx history -cipro/flagyl (06/07) -Started Cefepime (06-07 - 06/10 ) -Vancomycin (06/04 - 06/09) (3) Mechanically assisted ventilation ICD Codes: Z99.11 - Mechanically assisted ventilation Status: Resolved Plan: Extubated 06/05, status post cardiac arrest and return of spontaneous circulation on 06/04. Reintubated 06/07 for respiratory distress. -Continue ICU management Tile Ditcher consulted-appreciate recs -CPAP trials, continues to fail -Palliative care consulted > to extubate and continue comfort care today (4) Ischemic stroke ICD Codes: I63.9 - Cerebral infarction, unspecified Status: Acute Plan: Patient presented with aphasia and left-sided weakness and mild right- sided weakness upon arrival to ED. Brain MRI demonstrated increased signal in the posterior left MCA distribution on the diffusion of weighted images characteristic of an acute or subacute infarct. Currently no mass shift or evidence hemorrhage. Carotid US: moderate visble plaque in both carotid arteries, findings suggest at least a moderate stenosis. possible significant carotid disease, though not a good candidate for further imaging of the carotids at this point Neurology consulted, recs appreciated. -Continue aspirin 325 mg PO daily -Hold Xarelto 20mg PO daily -Physical therapy (5) Sepsis ICD Codes: A41.9 - Sepsis Status: Acute Plan: ID consulted-appreciate recs -Abx per ID as above (6) Congestive heart failure ICD Codes: I50.9 - Heart failure, unspecified Status: Chronic Plan: Echo form 03/14/17 demonstrated 35% ejection fraction CXR 06/01 revealed cardiomegaly and stable compared to CXR 05/22/17, which revealed slight blunting of the left costophrenic sulcus suggesting a small left pleural effusion CXR 06/01 demonstrated moderate pulmonary vascular congestion Echo 06/01: mildly dilated LV, EF 25%, mild to moderate aortic sclerosis Echo 06/04: EF 20% -Lasix 40mg IV q8H -Monitor HR and BP -Coreg 3.125mg BID -Monitor I/Os (7) Chronic kidney disease, stage 3 ICD Codes: N18.3 - Chronic kidney disease, stage 3 (moderate) Plan: Baseline Cr. 1.3-1.5; Stable around 1.2-1.6 -Continue to monitor -Nephrology consulted, recs appreciated -Avoid nephrotoxins -Follow I/O (8) Atrial fibrillation ICD Codes: I48.91 - Atrial fibrillation Status: Chronic Plan: -Start digoxin daily -Amiodarone infusion -Xarelto 20mg PO daily (9) Hypertension ICD Codes: I10 - Hypertension Status: Chronic Plan: -Continue home meds: Coreg 6.25 mg PO q12 Losartan 50mg PO daily (10) Neurogenic bladder ICD Codes: N31.9 - Neuromuscular dysfunction of bladder, unspecified Plan: Neurogenic bladder due to stroke -Conde catheter placed (11) Hyperlipidemia ICD Codes: E78.5 - Hyperlipidemia Status: Chronic Plan: -Continue Atorvastatin 40mg PO HS (12) Hypothyroidism ICD Codes: E03.9 - Hypothyroidism, unspecified Status: Chronic Plan: -Continue Levothyroxine 112mcg PO daily (13) Diabetes ICD Codes: E11.9 - Diabetes Status: Chronic Plan: Blood sugar elevated to 400s. Added Levemir 15 on 06/14, increased to 25U q12H on 06/15, currently on Levemir 27 units twice a day -Sliding scale insulin -Held home insulin (14) Nutrition, metabolism, and development symptoms ICD Codes: R63.8 - Other symptoms and signs concerning food and fluid intake Status: Acute Plan: Fluids: Free water q8H Diet: Tube feeds Electrolytes: monitor and replace as needed DVT ppx: SCDs See the residents documentation for details. I saw and evaluated the patient regarding the lr portions of this evaluation and agree with the residents findings and plans as written. Parts of this note were created using [employer] voice recognition software program. While efforts were made to correct any mistakes made by this software, some mistakes, errors, and omissions may remain in the final note that were not caught when the note was originally created. Problem Qualifiers (1) Pneumonia: Qualified Codes: J15.212 - Pneumonia due to methicillin resistant Staphylococcus aureus (2) Congestive heart failure: Qualified Codes: I50.9 - Heart failure, unspecified (3) Atrial fibrillation: Qualified Codes: I48.2 - Chronic atrial fibrillation (4) Hypertension: Qualified Codes: I10 - Essential (primary) hypertension Jermaine Bell MD R1 Jun 19, 2017 11:54
[2017-06-19] MEDS: MORPHINE SULFATE 2 MG/ML INJ IV PUSH SCH ×2 (12:00→15:19)
[2017-06-19] MEDS: LORazepam 2 MG/ML VIAL IV PUSH SCH ×2 (12:00→15:19)
--- NOTE | 2017-06-20 14:28 | HHI.DS ---
Summary Note Date of : Jun 19, 2017 Time Of : 2024 Admission Date May 29, 2017 at 15:24 Admitting Diagnosis Diagnosis at Time of : CBC/BMP: 06/18/17 0400 06/19/17 0447 Significant Findings Laboratory Tests Test 06/18/17 04:00 06/19/17 04:47 White Blood Count 20.8 TH/MM3 (4.0-11.0) Red Blood Count 3.15 MIL/MM3 (4.50-5.90) Hemoglobin 8.5 GM/DL (13.0-17.0) Hematocrit 26.7 % (39.0-51.0) Red Cell Distribution Width 18.9 % (11.6-17.2) Neutrophils (%) (Auto) 82.3 % (16.0-70.0) Lymphocytes (%) (Auto) 7.9 % (9.0-44.0) Neutrophils # (Auto) 17.1 TH/MM3 (1.8-7.7) Monocytes # (Auto) 1.2 TH/MM3 (0-0.9) Eosinophils # (Auto) 0.6 TH/MM3 (0-0.4) Neutrophils % (Manual) 84 % (16-70) Lymphocytes % 2 % (9-44) Eosinophils % 5 % (0-4) Neutrophils # (Manual) 17.9 TH/MM3 (1.8-7.7) Myelocytes 1 % (0-0) Nucleated Red Blood Cells 1 /100 WBC (0-0) Blood Urea Nitrogen 59 MG/DL (7-18) 67 MG/DL (7-18) Creatinine 1.63 MG/DL (0.60-1.30) 1.68 MG/DL (0.60-1.30) Random Glucose 280 MG/DL (74-106) 319 MG/DL (74-106) Calcium Level 8.3 MG/DL (8.5-10.1) 6.9 MG/DL (8.5-10.1) Estimat Glomerular Filtration Rate 42 ML/MIN (>89) 41 ML/MIN (>89) Total Protein 4.0 GM/DL (6.4-8.2) Sodium Level 148 MEQ/L (136-145) Chloride Level 114 MEQ/L (98-107) Imaging Last Impressions Chest X-Ray 06/16/17 0000 Signed Impressions: Service Date/Time: Friday, June 16, 2017 08:06 - CONCLUSION: Diffuse consolidation likely related to edema/CHF. This is unchanged from the prior exam. Ap Quigley MD Abdomen X-Ray 06/05/17 0000 Signed Impressions: Service Date/Time: May 07:39 - CONCLUSION: Normal examination. The nasogastric is within the proximal stomach Desmond Hudson MD Head CT 06/04/17 0000 Signed Impressions: Service Date/Time: May 04:33 - CONCLUSION: 1. No acute intracranial abnormality seen. 2. Mild atrophy. 3. Persistent increased density within the right globe. Ap Quigley MD Head Magnetic Resonance Angiography 05/29/17 0000 Signed Impressions: Service Date/Time: May 18:31 - CONCLUSION: 1. Suboptimal exam degraded by motion as above. No definite occlusive disease. Nilson Jeffries MD Carotid Artery Ultrasound 05/29/17 0000 Signed Impressions: Service Date/Time: May 19:47 - CONCLUSION: Moderate visible plaque in both carotid arteries. Findings suggest at least a moderate stenosis. This would be better evaluated with CTA carotids. Nilson Jeffries MD Brain MRI 05/29/17 0000 Signed Impressions: Service Date/Time: May 18:31 - CONCLUSION: 1. There is increased signal in the posterior left MCA distribution on the diffusion weighted images characteristic of an acute or subacute infarct. Currently no mass shift or evidence for hemorrhage. Nilson Jeffries MD Abdomen/Pelvis CT 05/29/17 0000 Signed Impressions: Service Date/Time: May 18:10 - CONCLUSION: 1. No acute finding on CT abdomen and pelvis. 2. Calcified gallstones. 3. There is a small hiatal hernia. Distended bladder. 4. 2.3 cm lesion lower pole right kidney not clearly a cyst. Recommend renal ultrasound to assess for cyst versus solid mass. Nilson Jeffries MD Last Impressions Chest X-Ray 06/07/17 0000 Signed Impressions: Service Date/Time: Wednesday, June 07, 2017 07:19 - CONCLUSION: ET tube in good position. Juan Carvalho MD FACR Abdomen X-Ray 06/05/17 0000 Signed Impressions: Service Date/Time: May 07:39 - CONCLUSION: Normal examination. The nasogastric is within the proximal stomach Desmond Hudson MD Head CT 06/04/17 0000 Signed Impressions: Service Date/Time: May 04:33 - CONCLUSION: 1. No acute intracranial abnormality seen. 2. Mild atrophy. 3. Persistent increased density within the right globe. Ap Quigley MD Head Magnetic Resonance Angiography 05/29/17 0000 Signed Impressions: Service Date/Time: May 18:31 - CONCLUSION: 1. Suboptimal exam degraded by motion as above. No definite occlusive disease. Nilson Jeffries MD Carotid Artery Ultrasound 05/29/17 0000 Signed Impressions: Service Date/Time: May 19:47 - CONCLUSION: Moderate visible plaque in both carotid arteries. Findings suggest at least a moderate stenosis. This would be better evaluated with CTA carotids. Nilson Jeffries MD Brain MRI 05/29/17 0000 Signed Impressions: Service Date/Time: May 18:31 - CONCLUSION: 1. There is increased signal in the posterior left MCA distribution on the diffusion weighted images characteristic of an acute or subacute infarct. Currently no mass shift or evidence for hemorrhage. Nilson Jeffries MD Abdomen/Pelvis CT 05/29/17 0000 Signed Impressions: Service Date/Time: May 18:10 - CONCLUSION: 1. No acute finding on CT abdomen and pelvis. 2. Calcified gallstones. 3. There is a small hiatal hernia. Distended bladder. 4. 2.3 cm lesion lower pole right kidney not clearly a cyst. Recommend renal ultrasound to assess for cyst versus solid mass. 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 He has a past medical history significant for CHF with ejection fraction 25% (echo 06/01), Atrial fibrillation on Xarelto, chronic kidney disease stage III, rhabdomyolysis , Hypertension, Anemia, Hyperlipidemia, Diabetes Mellitus and Hypothyroidism. Apparently patient was in his regular state of health, improving right hemiparesis today am. A code blue was called overhead after the patient was found on the bed unresponsive and pulseless, which I responded immediately. CPR was started. See Code sheet for details-rhythm was pea with A. fib. Patient received 2 amp epinephrine, 1amp of bicarb. CPR continued and after total 5 min there was return of spontaneous circulation. I intubated patient during code, after return of spontaneous circulation. Patient was quickly moved to the ICU where resuscitation was continued with IV fluids boluses. I placed a right femoral arterial line for invasive cardiac/hemodynamic monitoring. As the blood pressure was trending down to low 90s systolic patient was started on Levophed infusion. I also placed a right subclavian central line. Patient remained in atrial fibrillation but blood pressure improved with map consistently above 65 with fluid resuscitation and Levophed infusion. I discussed with patient's guardian, who wants patient to be DNR, but wants to continue aggressive treatment. CT of the head is pending at this time. PE is unlikely as the patient had been on Xarelto for anticoagulation SUBJ 06/05/17: Intubated currently off sedation. Remains encephalopathic, sodium 150. Restart Lasix. Did not tolerate weaning trial due to apnea. Stat echo shows EF 20% 06/06 Reconsult: Rylie was called on floor for resp distress on arrival to [facility] [place] patient was tachycardic, tachypneic and hypoxic with sats 80's on NRB. He was subsequently intubated and placed on mechanical ventilation. Patient was given Lasix 40mg IV. 06/08 Patient remains sedated and intubated. Afebrile. Renal function is improving with Cr: 1.55 today from 1.93 06/09: Remains sedated, orally intubated on mechanical ventilation. Hemoglobin 7.2 this morning. No melena or rectal bleeding overnight per discussion with RN 06/10: Remains sedated, orally intubated on mechanical ventilation. Received 1 unit PRBCs yesterday. 06/11: Remains sedated, orally intubated on mechanical ventilation. Daily C Pap trials. 06/12: failed cpap yesterday for weakness and tachypnea. 06/13: significant stool output yesterday and overnight. wbc still elevated. febrile overnight. placed rectal tube due to significant stool causing skin breakdown. sent c. diff pcr and started flagyl iv. still failing sbt daily. overall poor prognosis. 06/14: Remains sedated, orally intubated on mechanical ventilation. Tolerating tube feeds. 06/15: Remains sedated, orally intubated on mechanical ventilation. Did not tolerate CPAP trials yesterday. 06/16: Sedated, orally intubated on mechanical ventilation. Went into A. fib with RVR this morning. Hemoglobin 6.1 on a.m. labs. One unit PRBCs ordered and repeat CBC ordered to confirm. He did have a temperature spike of 102.2 overnight. No hypotension. No melena or rectal bleeding noted overnight. 06/17: [id number]. The patient remained on amiodarone throughout the night, being transitioned to amiodarone PO this a.m. the patient continues to have elevated blood glucose level in the 300s, Levemir increased to 27 units twice a day. Hemoglobin stable this a.m.. 06/18: Creatinine worsening, leukocytosis worsening. No change in status. Discussion with palliative care, plan for possible comfort care measures to be instituted tomorrow morning. 06/19: Patient remains sedated on mechanical ventilation. Not tolerating CPAP trials. Comfort care measures to be instituted this a.m.. The patient at 2024. Krista Jose MD Jun 20, 2017 14:28
--- NOTE | 2017-06-24 16:43 | PQ ---
Physician Query Response Document PATIENT: ZAIN OCHOA : 1950 ADMIT DATE: 05/29/2017 3:24 PM DISCH DATE: 06/19/2017 8:25 PM RESPONDING PROVIDER #: [email or web address] QUERY TEXT: Clarification of Clinical Diagnostic Findings Please clarify documentation or clinical relevance for the clinical / diagnostic findings or whether those are insignificant or unable to be further specified. THE DIAGNOSIS OF SEPSIS 1)Sepsis present on admission 2)Sepsis after admission 3)patient did not have Sepsis 4)other(please specify) The patient's Clinical Indicators include: DR. Jose, Please Clarify documented diagnosis of SEPSIS Documentation of sepsis is noted Multiple times including final progress note. Sepsis is not documented in Discharge Summary. PLEASE REVIEW THE QUESTION BELOW AND ANSWER TO THE BEST OF YOUR ABILITY THANK YOU Query created by: Armando Maria on 06/24/2017 6:28 AM RESPONSE TEXT: Sepsis present on admission presumed secondary to preexisting sacral ulcers that were present upon ad mission. Electronically signed by: Krista Jose MD 06/24/2017 4:39 PM
== END 2017-06-19 20:25 | disposition expired | DRG 870 ==
LOC: NEPE 12:10 → NEDA 15:18 → OBSVTOIN 15:24 → N04B 16:46 → N03A 06-04 12:59 → N04B 06-06 14:42 → HIMW 06-07 07:10
PROVIDERS: ADMIT Family Medicine; ATTEND Family Medicine
PROC: 30233N1 Transfusion of Nonautologous Red Blood Cells into Peripheral Vein, Percutaneous Approach (ICD-10-PCS; principal; 2017-05-30)
PROC: 0T9B70Z Drainage of Bladder with Drainage Device, Via Natural or Artificial Opening (ICD-10-PCS; 2017-05-30)
PROC: 04HY32Z Insertion of Monitoring Device into Lower Artery, Percutaneous Approach (ICD-10-PCS; 2017-06-04)
PROC: 5A1945Z Respiratory Ventilation, 24-96 Consecutive Hours (ICD-10-PCS; 2017-06-04)
PROC: 5A12012 Performance of Cardiac Output, Single, Manual (ICD-10-PCS; 2017-06-04)
PROC: 0BH17EZ Insertion of Endotracheal Airway into Trachea, Via Natural or Artificial Opening (ICD-10-PCS; 2017-06-04)
PROC: 4A133B1 Monitoring of Arterial Pressure, Peripheral, Percutaneous Approach (ICD-10-PCS; 2017-06-04)
PROC: 4A133J1 Monitoring of Arterial Pulse, Peripheral, Percutaneous Approach (ICD-10-PCS; 2017-06-04)
PROC: 05H533Z Insertion of Infusion Device into Right Subclavian Vein, Percutaneous Approach (ICD-10-PCS; 2017-06-04)
PROC: 5A1955Z Respiratory Ventilation, Greater than 96 Consecutive Hours (ICD-10-PCS; 2017-06-06)
PROC: 0BH17EZ Insertion of Endotracheal Airway into Trachea, Via Natural or Artificial Opening (ICD-10-PCS; 2017-06-06)
DX: A41.9 Sepsis, unspecified organism (principal); I63.512 Cerebral infarction due to unspecified occlusion or stenosis of left middle cerebral artery; R57.0 Cardiogenic shock; J96.01 Acute respiratory failure with hypoxia; G93.41 Metabolic encephalopathy; J15.212 Pneumonia due to Methicillin resistant Staphylococcus aureus; I13.0 Hypertensive heart and chronic kidney disease with heart failure and stage 1 through stage 4 chronic kidney disease, or unspecified chronic kidney disease; L89.150 Pressure ulcer of sacral region, unstageable; I50.9 Heart failure, unspecified; J15.5 Pneumonia due to Escherichia coli; L89.623 Pressure ulcer of left heel, stage 3; G93.1 Anoxic brain damage, not elsewhere classified; N17.9 Acute kidney failure, unspecified; M62.82 Rhabdomyolysis; R47.01 Aphasia; L97.919 Non-pressure chronic ulcer of unspecified part of right lower leg with unspecified severity; G81.91 Hemiplegia, unspecified affecting right dominant side; I42.9 Cardiomyopathy, unspecified; J44.0 Chronic obstructive pulmonary disease with (acute) lower respiratory infection; F03.90 Unspecified dementia, unspecified severity, without behavioral disturbance, psychotic disturbance, mood disturbance, and anxiety; L98.419 Non-pressure chronic ulcer of buttock with unspecified severity; I48.0 Paroxysmal atrial fibrillation; E11.22 Type 2 diabetes mellitus with diabetic chronic kidney disease; E11.622 Type 2 diabetes mellitus with other skin ulcer; E11.65 Type 2 diabetes mellitus with hyperglycemia; N18.3 Chronic kidney disease, stage 3 (moderate); F41.9 Anxiety disorder, unspecified; F32.9 Major depressive disorder, single episode, unspecified; E78.5 Hyperlipidemia, unspecified; I35.1 Nonrheumatic aortic (valve) insufficiency; K21.9 Gastro-esophageal reflux disease without esophagitis; F29 Unspecified psychosis not due to a substance or known physiological condition; E03.9 Hypothyroidism, unspecified; I25.2 Old myocardial infarction; I25.10 Atherosclerotic heart disease of native coronary artery without angina pectoris; Z95.1 Presence of aortocoronary bypass graft; Z95.5 Presence of coronary angioplasty implant and graft; Z87.891 Personal history of nicotine dependence; Z79.4 Long term (current) use of insulin; Z79.82 Long term (current) use of aspirin; R06.03 Acute respiratory distress; Z79.01 Long term (current) use of anticoagulants; M19.90 Unspecified osteoarthritis, unspecified site; Z88.0 Allergy status to penicillin; M24.541 Contracture, right hand; M24.542 Contracture, left hand; H54.7 Unspecified visual loss; I73.9 Peripheral vascular disease, unspecified; N28.1 Cyst of kidney, acquired; K02.9 Dental caries, unspecified; N31.9 Neuromuscular dysfunction of bladder, unspecified; K59.00 Constipation, unspecified; Z86.718 Personal history of other venous thrombosis and embolism; I65.23 Occlusion and stenosis of bilateral carotid arteries; Z66 Do not resuscitate; R13.10 Dysphagia, unspecified; F39 Unspecified mood [affective] disorder; K80.20 Calculus of gallbladder without cholecystitis without obstruction; K44.9 Diaphragmatic hernia without obstruction or gangrene; Z51.5 Encounter for palliative care; Z83.3 Family history of diabetes mellitus; Z82.49 Family history of ischemic heart disease and other diseases of the circulatory system; I87.8 Other specified disorders of veins; L89.890 Pressure ulcer of other site, unstageable; R13.12 Dysphagia, oropharyngeal phase; D64.9 Anemia, unspecified; Z74.01 Bed confinement status; R19.7 Diarrhea, unspecified
CPT/HCPCS: 31500; 36430; 36556; 36600; 70450; 70544; 70551; 71010; 71045; 74000; 74176; 76937; 80048; 80053; 80061; 80202; 81001; 82140; 82150; 82550; 82552; 82805; 82948; 83605; 83690; 83735; 83880; 84100; 84132; 84155; 84443; 84484; 85007; 85014; 85018; 85025; 85027; 85384; 85610; 85730; 86403; 86850; 86900; 86901; 86920; 87040; 87070; 87077; 87086; 87147; 87186; 87205; 87493; 87640; 87641; 92950; 93005; 93306; 93308; 93880; 94002; 94003; 94150; 94640; 94664; C9113; G8987-GP; G8988-GP; J0171; J0282; J0610; J0692; J0696; J0744; J1120; J1160; J1644; J1815; J1940; J1980; J2060; J2250; J2270; J2370; J3010; J3370; J3480; J7030; J7040; J7050; P9016; P9045